=== PATIENT | female | born 1965 | race Caucasian/White ===

== ENCOUNTER 2018-09-22 17:08 | Emergency (ER) | payer SELFPAY ==
--- OUTSIDE RECORDS SUMMARY | 2018-09-22 17:12 | XMS REPORT | Clinical Summary ---
:1965 Author Organization [facility] Address [address] [place] [address] Care Team Providers Name Role Phone Unavailable Primary Care Provider Unavailable Allergies Active Allergy Reactions Severity Noted Date Comments Promethazine 09/27/2016 Air ways will swell up Medications Medication Sig Dispensed Refills Start End Date Status Date polyethylene glycol Take 17 g by 1 Active (GLYCOLAX) 17 mouth daily as 6 gram/dose powder needed for constipation. ipratropium-albuter USE 1 AMP VIA NEB 1 Active ol (DUO-NEB) TID 7 0.5-2.5 mg/mL nebulizer CHOLECALCIFEROL, TK 1 C PO D 0 Active VITAMIN D3, 2,000 7 unit capsule capsule SANTYL ointment APPLY TOPICALLY 1 Active AA ONCE D 7 guaiFENesin TK 20 ML PER PEG 1 Active (ROBITUSSIN) 100 TID 7 mg/5 mL syrup levETIRAcetam GIVE 7.5 ML PER 1 Active (KEPPRA) 100 mg/mL PEG Q 12 H 7 solution SENNA WITH DOCUSATE TK 1 T PER PEG D 1 Active SODIUM 8.6-50 mg 7 tablet eszopiclone TK 1 T PER PEG 1 Active (LUNESTA) 1 MG QHS PRN INSOMNIA 7 tablet FLUoxetine (PROzac) TK 1 C PO PER PEG 90 capsule 1 Active 20 MG capsule D 7 metoprolol tartrate TAKE 1/2 TABLET 90 tablet 0 Active (LOPRESSOR) 25 mg PER PEG EVERY 12 8 tablet HOURS atorvastatin TAKE ONE TABLET 90 tablet 0 Active (LIPITOR) 40 MG BY MOUTH ONCE 8 tablet DAILY AmANTadine GIVE 10 ML VIA 473 mL 0 Active (SYMMETREL) 50 mg/5 PEG TWICE A DAY 8 mL solution omeprazole TAKE 1 CAPSULE 90 capsule 0 04/25/20 Active (PriLOSEC) 20 MG (20 MG TOTAL) BY 8 19 capsuleIndications: MOUTH DAILY. G tube feedings (HCC), Cough SYNTHROID 88 mcg TAKE ONE TABLET 30 tablet 0 Active tablet BY MOUTH EVERY 8 MORNING omeprazole Take 1 capsule 90 capsule 2 04/18/20 Discontinued (PriLOSEC) 20 MG (20 mg total) by 7 18 capsuleIndications: mouth daily. G tube feedings (HCC), Cough metoprolol tartrate TK 1/2 T PER PEG 90 tablet 1 01/15/20 Discontinued (LOPRESSOR) 25 mg Q 12 H 7 18 tablet levothyroxine Take 1 tablet (88 90 tablet 1 01/29/20 Discontinued (SYNTHROID, mcg total) by 7 18 LEVOXYL) 88 mcg mouth every tablet morning. AmANTadine GIVE 10 ML PER 473 mL 1 10/21/19 Discontinued (SYMMETREL) 50 mg/5 PEG BID 7 18 mL solution acetylcysteine Take 4 mL by 720 mL 0 07/19/20 (MUCOMYST) 200 nebulization 7 18 mg/mL (20 %) daily as needed nebulizer solution (congestion). 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 shunt 07/18/2017 Sepsis 03/21/2017 Meningitis 03/20/2017 Bronchorrhea 03/20/2017 Atelectasis 03/20/2017 Encephalopathy 03/15/2017 Pulmonary embolism 03/15/2017 NSTEMI (non-ST elevated myocardial infarction) 03/15/2017 Electrolyte abnormality 03/15/2017 Respiratory failure 03/15/2017 Anorexia 01/18/2017 Dizziness 01/18/2017 Chronic cough 01/18/2017 Brain aneurysm 01/04/2016 Sciatica of right side 01/01/2016 Overview: With normal neurological exam Acquired hypothyroidism 12/31/2015 HLD (hyperlipidemia) 12/31/2015 Essential hypertension 12/31/2015 Tobacco use 12/31/2015 GERD (gastroesophageal reflux disease) 12/31/2015 Encounters Date Type Specialty Care Team Description 06/20/2018 Telephone Internal Medicine Payal Mahan MD 06/18/2018 Refill Internal Medicine Payal Mahan MD 06/13/2018 Refill Internal Payal Garcia MD 06/05/2018 Refill Internal Payal aGrcia MD 05/15/2018 Refill Internal Medicine Payal Mahan MD 04/18/2018 Refill Internal Medicine Payal Mahan MD G tube feedings; Cough 04/13/2018 Refill Internal Medicine Payal Mahan MD G tube feedings; Cough 02/05/2018 Refill Internal Medicine Payal Mahan MD 01/28/2018 Refill Internal Medicine Payal Mahan MD 01/14/2018 Refill Internal Payal Garcia MD 11/22/2017 Hospital Encounter Radiology 11/22/2017 Hospital Encounter Radiology 11/22/2017 Hospital Encounter Radiology 11/22/2017 Hospital Encounter Radiology 11/22/2017 Hospital Encounter Radiology 10/21/2017 Refill Internal Medicine Payal Mahan MD after 09/21/2017 Immunizations Name Dates Previously Given Next Due DTaP 10/07/2010 Family History Medical History Relation Name Comments Colon cancer Father Cancer Mother lung cancer Relation Name Status Comments Father Mother Social History Tobacco Use Types Packs/Day Years Used Date Former Smoker Cigarettes 0.25 Quit: 01/17/2016 Alcohol Use Drinks/Week oz/Week Comments No Sex Assigned at Date Recorded Not on file Job Start Date Occupation Industry Not on file Not on file Not on file Travel History Travel Start Travel End No recent travel history available. Last Filed Vital Signs Not on file Plan of Treatment Health Maintenance Due Date Last Done Comments CERVICAL CANCER SCREENING 02/09/1985 BREAST CANCER SCREENING 02/09/2014 SHINGLES VACCINES (1 of 2) 02/09/2014 INFLUENZA VACCINE 04/05/2018 COLON CANCER SCREENING 04/13/2027 04/13/2017 Implants Implanted Type Area Electronic Masking System Operator Device Shelf Model / Identifier Expiration Serial / Date Lot Valve Strata Reg Hydcepls Adjstbl Ltxf - [id number] Cardiovascular Right: MED[employer] PS 11/03/2019 [id number] / Implanted: Qty: 1 on 04/17/2017 by Marilia Sullivan MD Implants N/A MEDICAL / [id number] Plate Crnl Str 2h Ti 1.6mm - [id number] Cranial Plate or N/A: IActive [id number] / Implanted: 03/30/2017 (Quantity not on file) [place] Cover N/A MAXIOFACIAL / IMPLANT Plate Bone Lpr 6hl Strut Ti Neuro - [id number] Cranial Plate or N/A: IActive [id number] / Implanted: 03/30/2017 (Quantity not on file) [place] Cover N/A MAXIOFACIAL / IMPLANT Screw Bone Slf-Drl Mtrxnuro Ti 4mm - [id number] Cranial Plate or N/A: IActive 04 503 104 01 / Implanted: 03/30/2017 (Quantity not on file) [place] Cover N/A MAXIOFACIAL / IMPLANT Screw Bone Sylvie Ti 4mm Matrixneuro - [id number] Cranial Plate or N/A: IActive 04 503 114 01 / Implanted: 03/31/2017 (Quantity not on file) [place] Cover N/A MAXIOFACIAL / IMPLANT Catheter Card Ps Med 90cm 1.3x2.5mm Std - [id number] Surgical Right: [employer]TR[employer] PS 12/03/2021 [id number] / Implanted: Qty: 1 on 04/17/2017 by Marilia Sullivan MD Implantable N/A MEDICAL / Shunts or Shunt [id number] Extenders Catheter Carlos 23cm 1.3x2.5mm Std Barium Imprgntd - [id number] Surgical Right: MEDTRON[employer] [place] [id number] / Implanted: Qty: 1 on 04/17/2017 by Marilia Sullivan MD Implantable N/A MEDICAL / Shunts or Shunt Extenders [facility]ter [facility] Tor[facility] Disc Sander Ii 5fr 100cm - [id number] Surgical N/A: [facility] [id number] / Implanted: 03/22/2017 (Quantity not on file) Implants; N/A INTERVENTION / Expanders; VASCULAR LISE Extenders; Surgical Wires Device Vasclr Clsr 5fr - [id number] Surgical N/A: ISAIAS AND 11/02/2018 [id number] / Implanted: 03/22/2017 (Quantity not on file) Implants; N/A ISAIAS DIV OF / Expanders; CORDIS [id number] Extenders; Surgical Wires Catheter Angiography Diag [facility] Disc Sander Ii 5fr 100cm - [id number] Surgical N/A: [facility] [id number] / Implanted: 03/29/2017 (Quantity not on file) Implants; N/A INTERVENTION / Expanders; VASCULAR LISE Extenders; Surgical Wires Device Vasclr Clsr 5fr - [id number] Surgical N/A: ISAIAS AND 11/02/2018 EX500 / Implanted: 03/29/2017 (Quantity not on file) Implants; N/A ISAIAS DIV OF / Expanders; CORDIS [id number] Extenders; Surgical Wires Kit Hemostatic Matrix W/Thrombin 8ml Surgiflo - [id number] Surgical N/A: [facility] 09/04/2018 [id number] / Implanted: 03/30/2017 (Quantity not on file) Implants; N/A / Expanders; [id number] Extenders; Surgical Wires Kit Hemostatic Matrix W/Thrombin 8ml Surgiflo - [id number] Surgical N/A: [facility] 09/04/2018 [id number] / Implanted: 03/30/2017 (Quantity not on file) Implants; N/A / Expanders; [id number] Extenders; Surgical Wires Catheter Drainge Carlos Ventriclear Ii - [id number] Surgical N/A: [employer] [id number] / Implanted: 03/30/2017 (Quantity not on file) Implants; N/A NEUROSURGERY / Expanders; Extenders; Surgical Wires Device Vasclr Clsr 5fr - [id number] Surgical N/A: ISAIAS AND 05/05/2018 EX500 / Implanted: 03/30/2017 (Quantity not on file) Implants; N/A ISAIAS DIV OF / Expanders; CORDIS [id number] Extenders; Surgical Wires Catheter Drainge Carlos Ventriclear Ii - [id number] Surgical N/A: [employer] [id number] / Implanted: 03/30/2017 (Quantity not on file) Implants; N/A NEUROSURGERY / Expanders; Extenders; Surgical Wires Device Vasclr Clsr 6fr - [id number] Surgical N/A: ISAIAS AND 05/05/2018 EX600 / Implanted: 04/11/2017 (Quantity not on file) Implants; N/A ISAIAS DIV OF / Expanders; CORDIS [id number] Extenders; Surgical Wires Kit Hemostatic Matrix W/Thrombin 8ml Surgiflo - [id number] Surgical N/A: [facility] 11/02/2018 2994 / Implanted: Qty: 1 on 04/17/2017 by Marilia Sullivan MD Implants; N/A / Expanders; [id number] Extenders; Surgical Wires Procedures Procedure Name Priority Date/Time Associated Diagnosis Comments TRANSFUSE FRESH FROZEN STAT 05/10/2018 5:37 PM CDT PLASMA TRANSFUSE FRESH FROZEN STAT 05/10/2018 5:37 PM CDT PLASMA TRANSFUSE RED BLOOD Routine 05/10/2018 5:37 PM CDT CELLS TRANSFUSE RED BLOOD Routine 05/10/2018 5:37 PM CDT CELLS TRANSFUSE RED BLOOD Routine 05/10/2018 5:37 PM CDT CELLS after 09/21/2017 Results Transfuse fresh frozen plasma (05/10/2018 5:37 PM CDT)Only the most recent of3 resultswithin the time period is included.Transfuse RBC (05/10/2018 5:37 PM CDT )Only the most recent of5 resultswithin the time period is included.after 2017 Insurance Payer Benefit Plan / Group Subscriber ID Type Phone Address BCBS BCBS CHOICE PPO/FEDERAL EMPL PPO xxxxxxxxxxxx PPO (Work) [id number] Advance Directives Patient has advance care planning documents on file. For more information, please contact:[place] [address]
--- OUTSIDE RECORDS SUMMARY | 2018-09-22 17:12 | XMS REPORT | Summary of Care ---
:1965 Author Name Nellie Robles M.A. Address Unavailable Unavailable , Care Team Providers Name Role Phone DAVID CLINE M.D. 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 Intracranial hemorrhage (432.9, I62.9) Status: Active Intracranial aneurysm (437.3, I67.1) Status: Active AC joint dislocation, unspecified laterality, sequela (905.6, S43.109S) Status: Active Medications Name Dates Details Levothyroxine Sodium 88 MCG Oral Tablet Refills: 0 Active Atorvastatin Calcium 40 MG Oral Tablet Refills: 0 Active FLUoxetine HCl - 20 MG Oral Tablet Refills: 0 Active Vitamin D TABS Refills: 0 Active GuaiFENesin 100 MG/5ML Oral Liquid Refills: 0 Active Ciprofloxacin 500 MG TABS Refills: 0 Active Metoprolol Tartrate 25 MG Oral Tablet Refills: 0 Active Benzonatate 100 MG Oral Capsule Refills: 0 Active Omeprazole CPDR Refills: 0 Active Multi Vitamin TABS Refills: 0 Active Melatonin 5 MG Oral Tablet Refills: 0 Active Lunesta 1 MG Oral Tablet Refills: 0 Active Amantadine HCl - 50 MG/5ML Oral Syrup Refills: 0 Active Keppra 100 MG/ML Oral Solution Refills: 0 Active Allergies and Adverse Reactions Name Dates Details Phenergan (Allergy) Status: Active Past Medical History Name Dates Details History of hypertension (V12.59, Z86.79) Status: Resolved History of meningitis (V12.42, Z86.61) Status: Resolved History of seizure (V12.49, Z87.898) Status: Resolved History of thyroid disorder (V12.29, Z86.39) Status: Resolved Procedures Procedure Dates Details [U] XRAY SHOULDER MIN 2 VWS RIGHT [id number] Date: 05-Dec-2017 [U] XRAY SHOULDER MIN 2 VWS RIGHT [id number] Date: 08-Dec-2017 History of craniectomy Completed History of gastrostomy tube insertion Completed History of tracheostomy Completed History of brain surgery Completed History of thoracotomy Completed Immunization Name Dates Details Immunizations not documented Family History Name Dates Details No pertinent family history Status: Active Name Dates Details No pertinent family history Status: Active Social History Name Dates Details Unknown if ever smoked Vital Signs Date Test Result Details No Known Vitals to report Results Date Description Value Details Results not documented Plan of Care Name Dates Details Planned Observations Planned Goals not documented Planned Encounters Appointment; DAVID CLINE M.D. On: 09-Dec-2017 13:15 Appointment; JOSUE SETH M.D. On: 24-Jan-2018 14:30 Interventions Provided Labs/Procedures/Imaging[U] XRAY SHOULDER MIN 2 VWS RIGHT [id number]; To Be Done: 09 Dec 2017 Instructions Name Dates Details Instructions not documented Encounters Appointment; DAVID CLINE M.D. On: 12-Aug-2017 15:45 Encounter Diagnosis: Problem not documented Appointment; DAVID CLINE M.D. On: 17-Aug-2017 13:00 Encounter Diagnosis: Problem not documented Appointment; JOSUE SETH M.D. On: 21-Sep-2017 13:00 Encounter Diagnosis: Problem not documented Appointment; DAVID CLINE M.D. On: 28-Sep-2017 13:00 Encounter Diagnosis: Problem not documented Appointment; JOSUE SETH M.D. On: 18-Oct-2017 11:00 Encounter Diagnosis: Problem not documented Appointment; SUZANNE CAMPBELL M.D. On: 04-Nov-2017 16:00 Encounter Diagnosis: Problem not documented Appointment; DAVID CLINE M.D. On: 09-Dec-2017 13:15 Encounter Diagnosis: Problem not documented
--- NOTE | 2018-09-22 17:44 | RAD REPORT ---
EXAM DESCRIPTION: CT - Head Brain Wo Cont - 09/22/2018 5:31 pm CLINICAL HISTORY: Weakness, malaise, redness and swelling to the forehead, prior history of cerebral infarction, subarachnoid hemorrhage, brain and spinal tumors, known HISTORIOGRAPHER shunt COMPARISON: CT study September 14, 2017 TECHNIQUE: Axial 5 mm thick images of the head were obtained without IV contrast. All CT scans are performed using dose optimization technique as appropriate and may include automated exposure control or mA/KV adjustment according to patient size. FINDINGS: No acute intracranial hemorrhage. There is no mass effect, edema or shift of midline struc tures. No acute cortical based infarction identified. Small amount of fluid is present along the left cerebral hemisphere similar to slightly hyperdense relative to CSF. Similar small collection is seen along the right frontal bone. These are believed to be old subdural hematomas or subdural hygroma. V entricles are decompressed or normal size. Right parietal shunt tube is in place with the tip in the frontal horn left lateral ventricle. Ventricles are substantially reduced in size compared to the exa m 1 year earlier. Right frontal lobe encephalomalacia changes are present. There is extensive postsurgical change to th e frontal bone. Intracranial calcifications are present similar to comparison. Additional postsurgica l changes are present in the skull. An acute bone process is not identifiable. Mastoid air cells are clear. Partially visualized paranasal sinuses are clear except for mucosal thic kening in the left frontal sinus. . No acute globe or orbital content abnormality. Aneurysm clip is s een in the left middle cranial fossa. IMPRESSION: No acute hemorrhage, mass or other acute intracranial finding. Patient has multiple chronic intracranial findings. Ventricles are decompressed and substantially smaller than seen 1 year earlier. No ventricular obstru ction is present.
--- NOTE | 2018-09-22 18:17 | RAD REPORT ---
EXAM DESCRIPTION: RAD - Shuntogram - 09/22/2018 6:00 pm CLINICAL HISTORY: Weakness, ladies, history of multiple intracranial procedures with BUS STEWARD shunt COMPARISON: CT head imaging same date, shunt series September 14, 2017 TECHNIQUE: AP and lateral views of the skull were obtained. AP projection the cervical spine, chest, abdomen and pelvis obtained. Lateral views of the upper abdomen and chest obtained. A total of 8 jacquie ges were obtained. FINDINGS: Extensive postsurgical changes are noted to the skull. Shunt tube is in place on the right no abnormal bend or kink of the tubing identifiable. Tubing is curled in the pelvis with the tip in the left lower quadrant Patient has extensive degenerative and postsurgical changes to the spine. Prominent bowel gas pattern is present. No obstruction, free air or pneumatosis. A nonspecific enteritis is possible. IMPRESSION: No BUS STEWARD shunt abnormality identifiable. Prominent small bowel pattern. This is nonobstructive but could represent ileus or enteritis.
[2018-09-22] MEDS ORDERED: DIPHENHYDRAMINE 50 MG/ML VIAL ONE (18:30)
[2018-09-22] MEDS ORDERED: DEXAMETHASONE 10 MG/ML VIAL ONE ×2 (18:30→18:33)
--- NOTE | 2018-09-22 18:49 | EDPHYS ---
Physician Documentation [facility] Name: Summer Coates Age: 53 yrs Sex: Female : 1965 Arrival Date: 09/22/2018 Time: 17:10 Bed 6 Private MD: ED Physician Bruno Valdez HPI: 09/22 17:36 This 53 yrs old Female presents to ER via EMS with complaints of facial rn swelling. 17:36 The patient complains of pain to the forehead. The patient describes the headache as rn aching. Onset: The symptoms/episode began/occurred today. Associated signs and symptoms: The patient has no apparent associated signs or symptoms, Pertinent negatives: altered mental status, fever, neck stiffness, vision changes, vision loss, vomiting, vertigo. Severity of symptoms: At its worst the pain was mild, in the emergency department the pain is unchanged. The patient has not experienced similar symptoms in the past. Reports hx of brain mass s/p surgery with shunt, reports has been feeling ok, until earlier today noticed forehead swelling, no fever, no trauma, feels mild headache, no vomiting/visual disturbance. . 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 - Ebola Screening: : Patient denies travel to an Ebola-affected area in the 21 days before illness onset. - Family history:: not pertinent. - Hospitalizations: : No recent hospitalization is reported. ROS: 17:36 Constitutional: Negative for fever, chills, and weight loss, Eyes: Negative for injury, rn pain, redness, and discharge, Neck: Negative for injury, pain, and swelling, Cardiovascular: Negative for chest pain, palpitations, and edema, Respiratory: Negative for shortness of breath, cough, wheezing, and pleuritic chest pain, Abdomen/GI: Negative for abdominal pain, nausea, vomiting, diarrhea, and constipation, MS/Extremity: Negative for injury and deformity, Skin: Negative for injury, rash, and discoloration, Neuro: + mild headache, no focal weakness or new neurological complaint Exam: 17:36 Constitutional: This is a well developed, well nourished patient who is awake, alert, rn and in no acute distress. Head/Face: + forehead swelling, firm, non-fluctuant, central erythematous papule, no warmth, no depression Eyes: Pupils equal round and reactive to light, extra-ocular motions intact. Lids and lashes normal. Conjunctiva and sclera are non-icteric and not injected. Cornea within normal limits. Periorbital areas with no swelling, redness, or edema. Neck: Trachea midline, no thyromegaly or masses palpated, and no cervical lymphadenopathy. Supple, full range of motion without nuchal rigidity, or vertebral point tenderness. No Meningismus. Skin: Warm, dry MS/ Extremity: Pulses equal, no cyanosis. Neurovascular intact. Neuro: Awake and alert, GCS 15, oriented to person, place, time, and situation. Cranial nerves II-XII grossly intact. Motor strength 4/5 in all extremities. Sensory grossly intact. Vital Signs: 17:23 BP 103 / 71; Pulse 91; Resp 18; Temp 98.5; Pulse Ox 95% on R/A; Weight 58.97 kg; Height aj1 5 ft. 3 in. (160.02 cm) (R); 18:15 BP 109 / 75; Pulse 81; Resp 18; Pulse Ox 98% on R/A; aj1 17:23 Body Mass Index 23.03 (58.97 kg, 160.02 cm) aj1 [place] Coma Score: 18:42 Eye Response: spontaneous(4). Verbal Response: oriented(5). Motor Response: obeys rn commands(6). Total: 15. MDM: 17:10 Patient medically screened. rn 18:42 Differential diagnosis: migraine, vasomotor headache, cellulitis, insect bite, allergic rn reaction, shunt problem. Data reviewed: vital signs, nurses notes, radiologic studies, CT scan, plain films, and as a result, I will discharge patient. Counseling: I had a detailed discussion with the patient and/or guardian regarding: the historical points, exam findings, and any diagnostic results supporting the discharge/admit diagnosis, lab results, radiology results, the need for outpatient follow up, to return to the emergency department if symptoms worsen or persist or if there are any questions or concerns that arise at home. Special discussion: I discussed with the patient/guardian in detail that at this point there is no indication for admission to the hospital. It is understood, however, that if the symptoms persist or worsen the patient needs to return immediately for re-evaluation. ED course: Pt with no acute findings on ct head, ventricles more decompressed compared to last, no bleeding, no soft tissue swelling seen, shunt appears normal as well, normal neuro exam, no trauma, will dc home with abx given spont forehead swelling with pain. Urged to contact her neurosurgeon and f/u for further instructions and return precautions given.. 09/22 17:11 Order name: CT Head Brain wo Cont; Complete Time: 18:00 rn 09/22 17:11 Order name: Shuntogram XRAY; Complete Time: 18:29 rn Administered Medications: 18:29 Drug: Benadryl 25 mg Route: IVP; Site: left antecubital; aj1 19:40 Follow up: Response: No adverse reaction rr5 18:30 Drug: Decadron - Dexamethasone 10 mg Route: IVP; Site: left antecubital; aj1 19:30 Follow up: Response: No adverse reaction rr5 Disposition: 09/22/18 18:48 Discharged to Home. Impression: Localized swelling, mass and lump, head. - Condition is Stable. - Discharge Instructions: Ventriculoperitoneal Shunt Home Guide. - Prescriptions for Bactrim DS 800- 160 mg Oral Tablet - take 1 tablet by ORAL route every 12 hours for 10 days; 20 tablet. - Medication Reconciliation Form, Thank You Letter, Antibiotic Education, Prescription Opioid Use form. - Follow up: Private Physician; When: As needed; Reason: Recheck today's complaints, Re-evaluation by your physician. - Problem is new. - Symptoms have improved. Signatures: Dispatcher [employer] EDMS Niurka Terry RN RN aj1 Bruno Valdez MD MD rn Roque, Raymond, RN RN rr5 Corrections: (The following items were deleted from the chart) 19:40 18:48 09/22/2018 18:48 Discharged to Home. Impression: Localized swelling, mass and rr5 lump, head. Condition is Stable. Forms are Medication Reconciliation Form, Thank You Letter, Antibiotic Education, Prescription Opioid Use. Follow up: Private Physician; When: As needed; Reason: Recheck today's complaints, Re-evaluation by your physician. Problem is new. Symptoms have improved. rn
--- NOTE | 2018-09-22 18:49 | ER ---
Nurse's Notes [facility] Name: Summer Coates Age: 53 yrs Sex: Female : 1965 Arrival Date: 09/22/2018 Time: 17:10 Bed 6 Private MD: Diagnosis: Localized swelling, mass and lump, head Presentation: 09/22 17:10 Presenting complaint: Patient states: Generalized weakness and malaise for the past 2 aj1 months. Today at noon she noticed redness and swelling to the forehead. Patient reports history of brain and spinal tumors as well as BRUSHER shunt. Transition of care: patient was not received from another setting of care. Onset of symptoms was September 22, 2018 at 12:00. Risk Assessment: Do you want to hurt yourself or someone else? Patient reports no desire to harm self or others. Initial Sepsis Screen: Does the patient meet any 2 criteria? No. Patient's initial sepsis screen is negative. Does the patient have a suspected source of infection? No. Patient's initial sepsis screen is negative. Care prior to arrival: None. 17:10 Method Of Arrival: EMS: [facility] aj 17:10 Acuity: NACHO 3 aj1 Triage Assessment: 17:25 General: Appears Behavior is calm, cooperative, appropriate for age. aj1 17:25 Pain:. 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 - Ebola Screening: : Patient denies travel to an Ebola-affected area in the 21 days before illness onset. - Family history:: not pertinent. - Hospitalizations: : No recent hospitalization is reported. Screenin:10 Abuse screen: Denies threats or abuse. Denies injuries from another. Nutritional aj1 screening: No deficits noted. Tuberculosis screening: No symptoms or risk factors identified. 19:28 Fall Risk IV access (20 points). Gait- Weak (10 pts.). Total Barbour Fall Scale indicates rr5 Low Risk Score (25-44 pts). Fall prevention measures have been instituted. Side Rails Up X 2 Frequent Obs/Assesments occuring As available Patient and Family Educated on Fall Prevention Program and strategies. Assessment: 17:10 General: Appears in no apparent distress. uncomfortable, Behavior is calm, cooperative, aj1 appropriate for age. Neuro: Level of Consciousness is awake, alert, obeys commands, Oriented to person, place, time, situation, Speech is normal, Reports generalized weakness, patient denies any unilateral weakness outside of her normal baseline. Cardiovascular: Patient's skin is warm and dry. Respiratory: Airway is patent Respiratory effort is even, unlabored, Respiratory pattern is regular, symmetrical. GI: No signs and/or symptoms were reported involving the gastrointestinal system. : No signs and/or symptoms were reported regarding the genitourinary system. EENT: No signs and/or symptoms were reported regarding the EENT system. Derm: redness and swelling noted to forehead, patient states that she first noticed the swelling today at noon. Musculoskeletal: No signs and/or symptoms reported regarding the musculoskeletal system. Circulation, motion, and sensation intact. 18:15 Reassessment: Patient appears in no apparent distress at this time. No changes from aj1 previously documented assessment. Patient and/or family updated on plan of care and expected duration. Pain level reassessed. Patient is alert, oriented x 3, equal unlabored respirations, skin warm/dry/pink. 19:30 Reassessment: Patient appears in no apparent distress at this time. Patient and/or rr5 family updated on plan of care and expected duration. Pain level reassessed. Patient is alert, oriented x 3, equal unlabored respirations, skin warm/dry/pink. discharge instruction given and explained without complaints made. Patient states symptoms have improved. Vital Signs: 17:23 BP 103 / 71; Pulse 91; Resp 18; Temp 98.5; Pulse Ox 95% on R/A; Weight 58.97 kg; Height aj1 5 ft. 3 in. (160.02 cm) (R); 18:15 BP 109 / 75; Pulse 81; Resp 18; Pulse Ox 98% on R/A; aj1 17:23 Body Mass Index 23.03 (58.97 kg, 160.02 cm) aj1 Tyler Coma Score: 18:42 Eye Response: spontaneous(4). Verbal Response: oriented(5). Motor Response: obeys rn commands(6). Total: 15. ED Course: 17:10 Patient arrived in ED. rn 17:10 Bruno Valdez MD is Attending Physician. rn 17:10 Niurka Terry RN is Primary Nurse. aj1 17:10 Patient has correct armband on for positive identification. aj1 17:10 No provider procedures requiring assistance completed. aj1 17:12 Triage completed. aj1 17:23 Arm band placed on. aj1 17:29 CT completed. Patient moved to CT. Patient moved back from CT. nd 17:33 CT Head Brain wo Cont In Process Unspecified. EDMS 17:59 X-ray completed. Patient tolerated procedure well. ag1 18:01 Shuntogram XRAY In Process Unspecified. EDMS 19:30 IV discontinued, G24 at right AC removed. rr5 Administered Medications: 18:29 Drug: Benadryl 25 mg Route: IVP; Site: left antecubital; aj 19:40 Follow up: Response: No adverse reaction rr5 18:30 Drug: Decadron - Dexamethasone 10 mg Route: IVP; Site: left antecubital; aj 19:30 Follow up: Response: No adverse reaction rr5 Outcome: 18:48 Discharge ordered by . rn 19:30 Discharged to home via wheelchair. rr5 19:30 Condition: stable 19:30 Discharge instructions given to patient, Instructed on discharge instructions, follow up and referral plans. medication usage, Demonstrated understanding of instructions, follow-up care, medications, Prescriptions given X 1. 19:40 Patient left the ED. rr5 Signatures: Dispatcher [employer] [facility] Niurka Terry, NAIDA RN [facility] Bruno Valdez MD MD rn [place], [place] [facility] Raymundo Haynes Raymond, RN RN rr5 Corrections: (The following items were deleted from the chart) 17:47 17:46 General: Appears [place] [id number]
[2018-09-22 19:45] VITALS: TEMP 98.5
[2018-09-22 19:46] VITALS: BP 109/75; O2SAT 98
== END 2018-09-22 19:40 | disposition home or self-care (01) ==
LOC: ER 17:08
DX: R22.0 Localized swelling, mass and lump, head (principal); I10 Essential (primary) hypertension; Z88.8 Allergy status to other drugs, medicaments and biological substances; Z87.820 Personal history of traumatic brain injury; Z98.2 Presence of cerebrospinal fluid drainage device
CPT/HCPCS: 49427; 70450; 75809; J1100

== ENCOUNTER 2018-12-27 15:53 | Emergency (ER) | payer OTHER, SELFPAY ==
--- OUTSIDE RECORDS SUMMARY | 2018-12-27 16:55 | XMS REPORT | Clinical Summary ---
:1965 Author Organization [facility] Address [address] [place] [address] Care Team Providers Name Role Phone Unavailable [...] LEVOXYL) 88 mcg mouth every tablet morning. acetylcysteine Take 4 mL by 720 mL [...] tablet Active Problems Problem Noted Date S/P COWLMAN shunt 07/18/2017 Sepsis 03/21/2017 Meningitis 03/20/2017 Bronchorrhea [...] Encounters Date Type Specialty Care Team Description 12/12/2018 Refill Internal Medicine Payal Mahan MD G tube feedings (HCC) ; Cough 10/15/2018 Refill Internal Medicine Payal Mahan MD G tube feedings ([facility]) ; Cough 06/20/2018 Telephone Internal Medicine Payal Mahan MD 06/18/2018 Refill Internal Payal Garcia MD 06/13/2018 Refill Internal Payal Garcia MD 06/05/2018 Refill Internal Medicine Payal Mahan MD 05/15/2018 Refill Internal Medicine Payal Mahan MD 04/18/2018 Refill Internal Medicine Payal Mahan MD G tube feedings; Cough 04/13/2018 Refill Internal Medicine Payla Mahan MD G tube feedings; Cough 02/05/2018 Refill Internal Payal Garcia MD 01/28/2018 Refill Internal Payal Garcia MD 01/14/2018 Refill Internal Medicine Payal Mahan MD after 12/26/2017 Immunizations Name Dates Previously Given Next Due [...] 02/09/1985 BREAST CANCER SCREENING 02/09/2014 SHINGLES VACCINES (#1) 02/09/2014 INFLUENZA VACCINE 04/05/2019 COLON CANCER SCREENING 04/13/2027 04/13/2017 Implants Implanted Type Area Electronic Communications Technician Device Shelf Model / Identifier Expiration Serial / Date Lot Valve Strata Reg Hydcepls Adjstbl Ltxf - [id number] Cardiovascular Right: MEDTRONIC PS 11/03/2019 [id number] / Implanted: Qty: 1 on 04/17/2017 by Marilia Sullivan MD Implants N/A MEDICAL / [id number] Plate Crnl Str 2h Ti 1.6mm - [id number] Cranial Plate or N/A: SYNTHES [id number] / Implanted: 03/30/2017 (Quantity not on file) [place] Cover N/A MAXIOFACIAL / IMPLANT Plate Bone Lpr 6hl Strut Ti Neuro - [id number] Cranial Plate or N/A: CardioFocus [id number] / Implanted: 03/30/2017 (Quantity not on file) [place] Cover N/A MAXIOFACIAL / IMPLANT Screw Bone Slf-Drl Mtrxnuro Ti 4mm - [id number] Cranial Plate or N/A: CardioFocus 04 503 104 01 / Implanted: 03/30/2017 (Quantity not on file) [place] Cover N/A MAXIOFACIAL / IMPLANT Screw Bone Sylvie Ti 4mm Matrixneuro - [id number] Cranial Plate or N/A: CardioFocus 04 503 114 01 / Implanted: 03/31/2017 (Quantity not on file) [place] Cover N/A MAXIOFACIAL / IMPLANT Catheter Card Ps Med 90cm 1.3x2.5mm Std - [id number] Surgical Right: MEDTRONIC PS 12/03/2021 [id number] / Implanted: Qty: 1 on 04/17/2017 by Marilia Sullivan MD Implantable N/A MEDICAL / Shunts or Shunt [id number] Extenders Catheter Carlos 23cm 1.3x2.5mm Std Barium Imprgntd - [id number] Surgical [place] [id number] / Implanted: Qty: 1 on 04/17/2017 by Marilia Sullivan MD Implantable N/A MEDICAL / Shunts or Shunt Extenders Catheter Angiography Diag Barnh Torque Outside Sales Consultant Ii 5fr 100cm - [id number] Surgical N/A: BSC PERIPHERAL [id number] / Implanted: 03/22/2017 (Quantity not on file) Implants; N/A INTERVENTION / Expanders; VASCULAR LISE Extenders; Surgical Wires Device Vasclr Clsr 5fr - [id number] Surgical N/A: ISAIAS AND 11/02/2018 [id number] / Implanted: 03/22/2017 (Quantity not on file) Implants; N/A ISAIAS DIV OF / Expanders; CORDIS [id number] Extenders; Surgical Wires Catheter Angiography Diag [facility] Torque Outside Sales Consultant Ii 5fr 100cm - [id number] Surgical N/A: [facility] PERIPHERAL [id number] / Implanted: 03/29/2017 (Quantity not on file) Implants; N/A INTERVENTION / Expanders; VASCULAR LISE Extenders; Surgical Wires Device Vasclr Clsr 5fr - [id number] Surgical N/A: ISAIAS AND 11/02/2018 EX500 / Implanted: 03/29/2017 (Quantity not on file) Implants; N/A ISAIAS DIV OF / Expanders; CORDIS [id number] Extenders; Surgical Wires Kit Hemostatic Matrix W/Thrombin 8ml Surgiflo - [id number] Surgical N/A: ETHICON [facility] 09/04/2018 [id number] / Implanted: 03/30/2017 (Quantity not on file) Implants; N/A / Expanders; [id number] Extenders; Surgical Wires Kit Hemostatic Matrix W/Thrombin 8ml Surgiflo - [id number] Surgical N/A: ETHICON [facility] 09/04/2018 [id number] / Implanted: 03/30/2017 (Quantity not on file) Implants; N/A / Expanders; [id number] Extenders; Surgical Wires Catheter Drainge Carlos Ventriclear Ii - [id number] Surgical N/A: MEDTRONIC [id number] / Implanted: 03/30/2017 (Quantity not on file) Implants; N/A NEUROSURGERY / Expanders; Extenders; Surgical Wires Device Vasclr Clsr 5fr - [id number] Surgical N/A: ISAIAS AND 05/05/2018 EX500 / Implanted: 03/30/2017 (Quantity not on file) Implants; N/A ISAIAS DIV OF / Expanders; CORDIS [id number] Extenders; Surgical Wires Catheter Drainge Carlos Ventriclear Ii - [id number] Surgical N/A: MEDTRONIC [id number] / Implanted: 03/30/2017 (Quantity not on file) Implants; N/A NEUROSURGERY / Expanders; Extenders; Surgical Wires Device Vasclr Clsr 6fr - [id number] Surgical N/A: ISAIAS AND 05/05/2018 EX600 / Implanted: 04/11/2017 (Quantity not on file) Implants; N/A ISAIAS DIV OF / Expanders; CORDIS [id number] Extenders; Surgical Wires Kit Hemostatic Matrix W/Thrombin 8ml Surgiflo - [id number] Surgical N/A: ETHICON [facility] 11/02/2018 2994 / Implanted: Qty: 1 on 04/17/2017 by Marilia Sullivan MD Implants; N/A / Expanders; [id number] Extenders; Surgical Wires Procedures Procedure Name Priority Date/Time Associated Diagnosis Comments TRANSFUSE FRESH FROZEN STAT 05/10/2018 5:37 PM CDT PLASMA TRANSFUSE FRESH FROZEN STAT 05/10/2018 5:37 PM CDT PLASMA TRANSFUSE RED BLOOD Routine 05/10/2018 5:37 PM CDT CELLS TRANSFUSE RED BLOOD Routine 05/10/2018 5:37 PM CDT CELLS TRANSFUSE RED BLOOD Routine 05/10/2018 5:37 PM CDT CELLS after 12/26/2017 Results Transfuse fresh frozen plasma (05/10/2018 5:37 PM CDT)Only the most recent of3 resultswithin the time period is included.Transfuse RBC (05/10/2018 5:37 PM CDT )Only the most recent of5 resultswithin the time period is included.after 2017 Insurance Payer Benefit Plan / Group Subscriber ID Type Phone Address BCBS BCBS CHOICE PPO/FEDERAL EMPL PPO xxxxxxxxxxxx PPO (Work) [id number] Advance Directives Patient has advance care planning documents on file. For more information, please contact:Magno Albright[address] [place] [address]
[2018-12-27 17:14] LABS: Absolute Lymphocytes (CBC) 3.6 K/uL (0.7-4.9); Absolute Monocytes 0.5 K/uL (0.1-1.3); Absolute Neutrophil 4.3 K/uL (1.8-8.0); Basophils % 1.5 % (0-1.3); Eosinophils % 1.4 % (0-4.4); Hematocrit 33.3 % (36.0-45.0); Lymphocytes % 42.3 % (15.3-44.8); MPV 9.3 fL (7.6-11.3); Monocytes % 5.2 % (3.3-12.3); RBC Red Blood Cell Count 3.71 M/uL (3.86-4.86)
[2018-12-27 17:26] LABS: ALT/SGPT 21 U/L (12-78); AST/SGOT 12 U/L (15-37); Alkaline Phosphatase 117 U/L (45-117); BUN Blood Urea Nitrogen 17 mg/dL (7-18); Bicarbonate 28 mmol/L (21-32); Bilirubin Direct 0.1 mg/dL (0-0.2); Bilirubin Total 0.4 mg/dL (0.2-1.0); Glucose Level 94 mg/dL (74-106); Magnesium 1.7 mg/dL (1.8-2.4); Potassium 3.8 mmol/L (3.5-5.1); Protein, Total 7.4 g/dL (6.4-8.2); Sodium Level 144 mmol/L (136-145)
--- NOTE | 2018-12-27 17:26 | RAD REPORT ---
EXAM DESCRIPTION: RAD - Chest Single View - 12/27/2018 5:18 pm CLINICAL HISTORY: Cough and congestion, dyspnea, wheezing COMPARISON: October 03, 2017 TECHNIQUE: AP portable chest image was obtained 1713 hours . FINDINGS: Fibrotic lung pattern is present. No focal consolidations seen. No failure or volume overl oad. Lung markings are accentuated compared to the prior study due to shallow inspiration. Heart and vasculature are normal. No pneumothorax seen. Right costophrenic angle blunting is present. The patie nt has very extensive thoracic surgical change. 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 No acute bony abnormality seen. No acute aortic findings suspected. IMPRESSION: No acute cardiopulmonary process. Chronic interstitial lung disease is present accentuated by shallow inspiration.
[2018-12-27] MEDS ORDERED: MAGNESIUM SULFATE 1 gm IVPB 1 GM/100 ML BAG IV ONE (17:45)
--- NOTE | 2018-12-27 18:40 | EDPHYS ---
Physician Documentation [facility] Name: Summer Coates Age: 53 yrs Sex: Female : 1965 Arrival Date: 12/27/2018 Time: 15:56 Bed 23 Private MD: ED Physician Raul Chacon HPI: 12/27 16:55 This 53 yrs old Female presents to ER via Wheelchair with complaints of jr8 Cough, Wheezing. 16:55 Onset: The symptoms/episode began/occurred gradually, 4 day(s) ago. Severity of jr8 symptoms: At their worst the symptoms were mild, in the emergency department the symptoms are unchanged. Modifying factors: The symptoms are alleviated by nothing, the symptoms are aggravated by nothing. Associated signs and symptoms: Pertinent positives: fatigue. The patient has not experienced similar symptoms in the past. The patient has not recently seen a physician. Daughter of patient stated that patient has been sleeping more and cough has increased. Noticed wheezing over the past couple of days. Prone to pneumonia. Wanted to make sure nothing is developing . 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 - Post-menopause ca1 Historical: - Allergies: 16:01 Phenergan; hb - Home Meds: 17:17 atorvastatin 40 mg Oral tab 1 tab nightly [Active]; benzonatate 100 mg Oral cap 1 cap ca1 every 8 hours [Active]; eszopiclone 2 mg Oral tab 1 tab once daily [Active]; fluoxetine 40 mg oral cap 1 cap once daily [Active]; Keppra 750 mg Oral tab 1 tab 2 times per day [Active]; levothyroxine 88 mcg tab 1 tab once daily [Active]; Lunesta Oral [Active]; metoprolol tartrate 25 mg Oral tab .5 tab 2 times per day [Active]; Multiple Vitamins Oral tab daily [Active]; omeprazole 40 mg Oral cpDR 1 cap nightly [Active]; Symbicort 160-4.5 mcg/actuation inhalation HFAA 2 puffs 2 times per day [Active]; Vitamin D Oral 2000 unit daily [Active]; melatonin 5 mg Oral tab .5 tab nightly [Active]; - PMHx: 16:01 brain and spinal tumors; DYSPHAGIA; Cerebral infarction; hemiplegia left; hb Hyperlipidemia; GERD; Hypothyroidism; traumatic subarachnoid hemorrhage; Hypertension; Depression; 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 - Social history:: Smoking status: Patient/guardian denies using tobacco. - Ebola Screening: : No symptoms or risks identified at this time. ROS: 16:55 Eyes: Negative for injury, pain, redness, and discharge, ENT: Negative for injury, jr8 pain, and discharge, Neck: Negative for injury, pain, and swelling, Cardiovascular: Negative for chest pain, palpitations, and edema, Abdomen/GI: Negative for abdominal pain, nausea, vomiting, diarrhea, and constipation, Back: Negative for injury and pain, MS/Extremity: Negative for injury and deformity, Skin: Negative for injury, rash, and discoloration, Neuro: Negative for headache, weakness, numbness, tingling, and seizure. 16:55 Constitutional: Positive for fatigue. 16:55 Respiratory: Positive for cough, wheezing, Negative for shortness of breath. Exam: 16:42 Eyes: Pupils equal round and reactive to light, extra-ocular motions intact. Lids and jr8 lashes normal. Conjunctiva and sclera are non-icteric and not injected. Cornea within normal limits. Periorbital areas with no swelling, redness, or edema. ENT: Nares patent. No nasal discharge, no septal abnormalities noted. Tympanic membranes are normal and external auditory canals are clear. Oropharynx with no redness, swelling, or masses, exudates, or evidence of obstruction, uvula midline. Mucous membranes moist. Neck: Trachea midline, no thyromegaly or masses palpated, and no cervical lymphadenopathy. Supple, full range of motion without nuchal rigidity, or vertebral point tenderness. No Meningismus. Cardiovascular: Regular rate and rhythm with a normal S1 and S2. No gallops, murmurs, or rubs. Normal PMI, no JVD. No pulse deficits. Respiratory: Lungs have equal breath sounds bilaterally, clear to auscultation and percussion. No rales, rhonchi or wheezes noted. No increased work of breathing, no retractions or nasal flaring. Abdomen/GI: Soft, non-tender, with normal bowel sounds. No distension or tympany. No guarding or rebound. No evidence of tenderness throughout. Back: No spinal tenderness. No costovertebral tenderness. Full range of motion. Skin: Warm, dry with normal turgor. Normal color with no rashes, no lesions, and no evidence of cellulitis. MS/ Extremity: Pulses equal, no cyanosis. Neurovascular intact. Full, normal range of motion. Neuro: Awake and alert, nonverbal but follows commands. Baseline for patient. Cranial nerves II-XII grossly intact. Motor strength 3/5 in all extremities. Sensory grossly intact. 16:42 ECG was reviewed by the Attending Physician. Vital Signs: 15:59 BP 118 / 72; Pulse 82; Resp 16; Temp 98.2; Pulse Ox 96% ; Pain 0/10; hb 17:03 BP 109 / 61; Pulse 83; Resp 17 S; Pulse Ox 98% on R/A; ca1 17:53 BP 116 / 62; Pulse 81; Resp 19 S; Pulse Ox 96% on R/A; ca1 18:18 BP 109 / 86; Pulse 78; Resp 21 S; Pulse Ox 98% on R/A; ca1 18:50 BP 127 / 68; Pulse 78; Resp 19 S; Pulse Ox 98% on R/A; ca1 MDM: 16:03 Patient medically screened. [facility] 18:39 Data reviewed: vital signs, nurses notes, lab test result(s), EKG, radiologic studies, jr8 plain films. Data interpreted: Pulse oximetry: on room air is 98 %. Interpretation: normal. Counseling: I had a detailed discussion with the patient and/or guardian regarding: the historical points, exam findings, and any diagnostic results supporting the discharge/admit diagnosis, lab results, radiology results, the need for outpatient follow up, a family practitioner, to return to the emergency department if symptoms worsen or persist or if there are any questions or concerns that arise at home. 18:40 ED course: No acute findings on labs, ecg, or imaging to note pneumonia or any other [facility] emergent event. Explained this to patient and family. Both are good with this and ready to go home . 12/27 16:18 Order name: Basic Metabolic Panel [facility] 12/27 16:18 Order name: CBC with Diff; Complete Time: 17:16 jr8 12/27 16:18 Order name: LFT's; Complete Time: 17: jr8 12/27 16:18 Order name: Magnesium; Complete Time: 17: jr8 12/27 16:18 Order name: XRAY Chest (1 view); Complete Time: 17:45 jr8 04/24 16:19 Order name: Basic Metabolic Panel; Complete Time: 17:26 [facility] 12/27 16:18 Order name: EKG; Complete Time: 16:19 [facility] 12/27 16:18 Order name: Cardiac monitoring; Complete Time: : 8 12/27 16:18 Order name: EKG - Nurse/Tech; Complete Time: : 8 12/27 16:18 Order name: IV Saline Lock; Complete Time: 16:59 8 12/27 16:18 Order name: Labs collected and sent; Complete Time: 16:59 8 12/27 16:18 Order name: O2 Per Protocol; Complete Time: : jr8 12/27 16:18 Order name: O2 Sat Monitoring; Complete Time: : jr EC:42 Rate is 79 beats/min. Rhythm is regular, Normal Sinus Rhythm. QRS [place] is Normal. [place] jr8 interval is normal at 158 msec. QRS interval is normal at 74 msec. QT interval is normal at 421 msec. No Q waves. T waves are Normal. No ST changes noted. Clinical impression: Normal ECG and No evidence of ischemia. Interpreted by me. Reviewed by me. Administered Medications: 17:32 Drug: Magnesium Sulfate 1 grams Route: IVPB; Infused Over: 1 hrs; Site: left ca1 antecubital; 18:37 Follow up: Response: No adverse reaction; IV Status: Completed infusion ca1 Disposition: 12/27/18 18:39 Discharged to Home. Impression: Muscle weakness (generalized), Hypomagnesemia. - Condition is Stable. - Discharge Instructions: Hypomagnesemia, Weakness. - Medication Reconciliation Form, Thank You Letter, Antibiotic Education, Prescription Opioid Use form. - Follow up: Private Physician; When: 2 - 3 days; Reason: Recheck today's complaints, Continuance of care, Re-evaluation by your physician. - Problem is new. - Symptoms have improved. Signatures: Dispatcher [employer] [facility] Dwayne Cardoza PA PA jr8 Alessia Richmond, RN RN Malinda Hood RN RN ca1 Corrections: (The following items were deleted from the chart) 19:11 18:39 12/27/2018 18:39 Discharged to Home. Impression: Muscle weakness (generalized); ca1 Hypomagnesemia. Condition is Stable. Forms are Medication Reconciliation Form, Thank You Letter, Antibiotic Education, Prescription Opioid Use. Follow up: Private Physician; When: 2 - 3 days; Reason: Recheck today's complaints, Continuance of care, Re-evaluation by your physician. Problem is new. Symptoms have improved. jr8
--- NOTE | 2018-12-27 18:40 | ER ---
Nurse's Notes [facility] Name: Summer Coates Age: 53 yrs Sex: Female : 1965 Arrival Date: 12/27/2018 Time: 15:56 Bed 23 Private MD: Diagnosis: Muscle weakness (generalized);Hypomagnesemia Presentation: 12/27 15:59 Presenting complaint: Productive cough and wheezing x 2-3 days. Denies fever. hb Transition of care: patient was not received from another setting of care. Onset of symptoms was December 24, 2018. Risk Assessment: Do you want to hurt yourself or someone else? Patient reports no desire to harm self or others. Care prior to arrival: None. 15:59 Method Of Arrival: Wheelchair hb 15:59 Acuity: NACHO 3 hb 16:20 Initial Sepsis Screen: Does the patient meet any 2 criteria? No. Patient's initial ca1 sepsis screen is negative. Does the patient have a suspected source of infection? Yes: Productive cough/pneumonia. CONSTRUCTION FRAMER: 17:00 LMP N/A - Post-menopause ca1 Historical: - Allergies: 16:01 Phenergan; hb - Home Meds: 17:17 atorvastatin 40 mg Oral tab 1 tab nightly [Active]; benzonatate 100 mg Oral cap 1 cap ca1 every 8 hours [Active]; eszopiclone 2 mg Oral tab 1 tab once daily [Active]; fluoxetine 40 mg oral cap 1 cap once daily [Active]; Keppra 750 mg Oral tab 1 tab 2 times per day [Active]; levothyroxine 88 mcg tab 1 tab once daily [Active]; Lunesta Oral [Active]; metoprolol tartrate 25 mg Oral tab .5 tab 2 times per day [Active]; Multiple Vitamins Oral tab daily [Active]; omeprazole 40 mg Oral cpDR 1 cap nightly [Active]; Symbicort 160-4.5 mcg/actuation inhalation HFAA 2 puffs 2 times per day [Active]; Vitamin D Oral 2000 unit daily [Active]; melatonin 5 mg Oral tab .5 tab nightly [Active]; - PMHx: 16:01 brain and spinal tumors; DYSPHAGIA; Cerebral infarction; hemiplegia left; hb Hyperlipidemia; GERD; Hypothyroidism; traumatic subarachnoid hemorrhage; Hypertension; Depression; 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 - Social history:: Smoking status: Patient/guardian denies using tobacco. - Ebola Screening: : No symptoms or risks identified at this time. Screenin:05 Abuse screen: Denies threats or abuse. Denies injuries from another. Nutritional ca1 screening: No deficits noted. Tuberculosis screening: No symptoms or risk factors identified. Fall Risk Secondary diagnosis (15 points) seizures, impaired mobility, IV access (20 points). Ambulatory Aid- None/Bed Rest/Nurse Assist (0 pts). Gait- Normal/Bed Rest/Wheelchair (0 pts). Assessment: 16:05 General: Appears in no apparent distress. uncomfortable, Behavior is calm, cooperative. ca1 Pain: Denies pain. Neuro: Level of Consciousness is awake, alert, obeys commands, Oriented to person, place, situation. Cardiovascular: Heart tones S1 S2 present Capillary refill < 3 seconds Patient's skin is warm and dry. Rhythm is sinus rhythm. Respiratory: Airway is patent Respiratory effort is even, unlabored, Respiratory pattern is regular, symmetrical, Breath sounds are clear bilaterally. Parent/caregiver reports the patient having cough that is productive, since since 4 days ago. GI: Abdomen is flat, non-distended, Bowel sounds present X 4 quads. Abd is soft and non tender X 4 quads. : No deficits noted. No signs and/or symptoms were reported regarding the genitourinary system. EENT: No deficits noted. No signs and/or symptoms were reported regarding the EENT system. Derm: Skin is intact, is healthy with good turgor, Skin is pink, warm \T\ dry. Musculoskeletal: Capillary refill < 3 seconds, Range of motion: limited in all extremities. 17:03 Reassessment: Patient appears in no apparent distress at this time. Patient is alert, ca1 oriented x 3, equal unlabored respirations, skin warm/dry/pink. 17:53 Reassessment: Patient appears in no apparent distress at this time. Patient is alert, ca1 oriented x 3, equal unlabored respirations, skin warm/dry/pink. 18:50 Reassessment: Patient appears in no apparent distress at this time. Patient is alert, ca1 oriented x 3, equal unlabored respirations, skin warm/dry/pink. Vital Signs: 15:59 BP 118 / 72; Pulse 82; Resp 16; Temp 98.2; Pulse Ox 96% ; Pain 0/10; hb 17:03 BP 109 / 61; Pulse 83; Resp 17 S; Pulse Ox 98% on R/A; ca1 17:53 BP 116 / 62; Pulse 81; Resp 19 S; Pulse Ox 96% on R/A; ca1 18:18 BP 109 / 86; Pulse 78; Resp 21 S; Pulse Ox 98% on R/A; ca1 18:50 BP 127 / 68; Pulse 78; Resp 19 S; Pulse Ox 98% on R/A; ca1 ED Course: 15:56 Patient arrived in ED. mr 16:00 Triage completed. hb 16:00 Arm band placed on. hb 16:03 Dwayne Cardoza PA is PHCP. jr8 16:03 Raul Chacon MD is Attending Physician. jr8 16:05 Patient has correct armband on for positive identification. Placed in gown. Bed in low ca1 position. Call light in reach. Side rails up X2. Warm blanket given. 16:05 surveillance monitor on. Pulse ox on. NIBP on. ca1 16:07 Malinda Hood, NAIDA is Primary Nurse. ca1 16:56 Inserted saline lock: 24 gauge in left antecubital area, using aseptic technique. Blood ca1 collected. 17:19 XRAY Chest (1 view) In Process Unspecified. EDMS 19:00 No provider procedures requiring assistance completed. IV discontinued, intact, ca1 bleeding controlled, No redness/swelling at site. Pressure dressing applied. Administered Medications: 17:32 Drug: Magnesium Sulfate 1 grams Route: IVPB; Infused Over: 1 hrs; Site: left ca1 antecubital; 18:37 Follow up: Response: No adverse reaction; IV Status: Completed infusion ca1 Outcome: 18:39 Discharge ordered by . jr8 19:00 Discharged to home via wheelchair, with family. ca1 19:00 Condition: stable 19:00 Discharge instructions given to family, Instructed on discharge instructions, follow up and referral plans. 19:11 Patient left the ED. ca1 Signatures: Dispatcher [employer] EDMD WallerMilena mr Dwayne Cardoza PA PA jr8 Alessia Richmond RN RN Malinda Hood RN RN ca1 Corrections: (The following items were deleted from the chart) 17:07 17:03 BP 109 / 61; Pulse 83bpm; Resp 17bpm; Spontaneous; Pulse Ox 94% RA; ca1 ca1 : 16:05 surveillance monitor on. Pulse ox on. NIBP on. ca1 ca1 19:10 No provider procedures requiring assistance completed. ca1 ca1 19:10 IV discontinued, intact, bleeding controlled, No redness/swelling at site. ca1 Pressure dressing applied, ca1
[2018-12-27 19:29] VITALS: TEMP 98.2
[2018-12-27 19:31] VITALS: O2SAT 98
[2018-12-27 19:32] VITALS: BP 127/68
--- NOTE | 2018-12-28 08:39 | EKG ---
Test Date: 2018-12-27 Test Time: 16:31:33 Spring Assembler Supervisor: DAPHNE MEASUREMENT RESULTS: Intervals: Rate: 79 WI: 158 QRSD: 74 QT: 368 QTc: 421 [place]: P: 63 WI: 158 QRS: 18 T: 44 INTERPRETIVE STATEMENTS: Normal sinus rhythm Normal ECG Compared to ECG 10/03/2017 21:01:45 No significant changes Electronically Signed On 12-28-18 08:36:55 CDT by Charly Snow
== END 2018-12-27 19:11 | disposition home or self-care (01) ==
LOC: ER 15:53
DX: M62.81 Muscle weakness (generalized) (principal); E83.42 Hypomagnesemia; Z88.8 Allergy status to other drugs, medicaments and biological substances; E78.5 Hyperlipidemia, unspecified; K21.9 Gastro-esophageal reflux disease without esophagitis; I10 Essential (primary) hypertension; F32.9 Major depressive disorder, single episode, unspecified
CPT/HCPCS: 96365; 93005; 85025; 80048; 36415; 83735; 80076; 71045; 99284; J3475

== ENCOUNTER 2019-01-05 17:38 | Emergency (ER) | payer OTHER ==
--- OUTSIDE RECORDS SUMMARY | 2019-01-05 17:42 | XMS REPORT | Clinical Summary ---
:1965 Author Organization [facility] Address [address] [place] [address] Care Team Providers Name Role Phone Unavailable [...] tablet Active Problems Problem Noted Date S/P IUSS MASTER ANALYST shunt 07/18/2017 Sepsis 03/21/2017 Meningitis 03/20/2017 Bronchorrhea [...] Encounters Date Type Specialty Care Team Description 01/02/2019 Refill Internal Medicine Payal Mahan MD G tube feedings ([facility]) ; Cough 12/12/2018 Refill Internal Medicine Payal Mahan MD G tube feedings ([facility]) ; Cough 10/15/2018 Refill Internal Medicine Payal Mahan MD G tube feedings ([facility]) ; Cough 06/20/2018 Telephone Internal Medicine Payal Mahan MD 06/18/2018 Refill Internal Payal Garcia MD 06/13/2018 Refill Internal Medicine Payal Mahan MD 06/05/2018 Refill Internal Medicine Payal Mahan MD 05/15/2018 Refill Internal Medicine Payal Mahan MD 04/18/2018 Refill Internal Medicine Payal aMhan MD G tube feedings; Cough 04/13/2018 Refill Internal Medicine Payal Mahan MD G tube feedings; Cough 02/05/2018 Refill Internal Payal Garcia MD 01/28/2018 Refill Internal Medicine Payal Mahan MD 01/14/2018 Refill Internal Medicine Payal Mahan MD after 01/04/2018 Immunizations Name Dates Previously Given Next Due [...] SCREENING 04/13/2027 04/13/2017 Implants Implanted Type Area Multiple Spindle Screw Machine Operator Device Shelf Model / Identifier Expiration Serial / Date Lot Valve Strata Reg Hydcepls Adjstbl Ltxf - [id number] Cardiovascular Right: MEDTRONIC PS 11/03/2019 [id number] / Implanted: Qty: 1 on 04/17/2017 by Marilia Sullivan MD Implants N/A MEDICAL / [id number] Plate Crnl Str 2h Ti 1.6mm - [id number] Cranial Plate or N/A: Grabbed [id number] / Implanted: 03/30/2017 (Quantity not on file) [place] Cover N/A MAXIOFACIAL / IMPLANT Plate Bone Lpr 6hl Strut Ti Neuro - [id number] Cranial Plate or N/A: Grabbed [id number] / Implanted: 03/30/2017 (Quantity not on file) [place] Cover N/A MAXIOFACIAL / IMPLANT Screw Bone Slf-Drl Mtrxnuro Ti 4mm - [id number] Cranial Plate or N/A: Grabbed 04 503 [id number] 01 / Implanted: 03/30/2017 (Quantity not on file) [place] Cover N/A MAXIOFACIAL / IMPLANT Screw Bone Sylvie Ti 4mm Matrixneuro - [id number] Cranial Plate or N/A: Grabbed 04 503 114 01 / Implanted: 03/31/2017 (Quantity not on file) [place] Cover N/A MAXIOFACIAL / IMPLANT Catheter Card Ps Med 90cm 1.3x2.5mm Std - [id number] Surgical Right: MEDTRONIC PS 12/03/2021 [id number] / Implanted: Qty: 1 on 04/17/2017 by Marilia Sullivan MD Implantable N/A MEDICAL / Shunts or Shunt [id number] Extenders Catheter Carlos 23cm 1.3x2.5mm Std Barium Imprgntd - [id number] Surgical Right: [place] [id number] / Implanted: Qty: 1 on 04/17/2017 by Marilia Sullivan MD Implantable N/A MEDICAL / Shunts or Shunt Extenders Catheter Angiography Diag [facility] [place] Photogrammetric Engineer Ii 5fr 100cm - [id number] Surgical N/A: BSC PERIPHERAL [id number] / Implanted: 03/22/2017 (Quantity not on file) Implants; N/A INTERVENTION / Expanders; VASCULAR LISE Extenders; Surgical Wires Device Vasclr Clsr 5fr - [id number] Surgical N/A: ISAIAS AND 11/02/2018 [id number] / Implanted: 03/22/2017 (Quantity not on file) Implants; N/A ISAIAS DIV OF / Expanders; CORDIS [id number] Extenders; Surgical Wires Catheter Angiography Diag [facility] Photogrammetric Engineer Ii 5fr 100cm - [id number] Surgical N/A: [facility] PERIPHERAL [id number] / Implanted: 03/29/2017 (Quantity not on file) Implants; N/A INTERVENTION / Expanders; VASCULAR LISE Extenders; Surgical Wires Device Vasclr Clsr 5fr - [id number] Surgical N/A: ISAIAS AND 11/02/2018 EX500 / Implanted: 03/29/2017 (Quantity not on file) Implants; N/A ISAIAS DIV OF / Expanders; CORDIS [id number] Extenders; Surgical Wires Kit Hemostatic Matrix W/Thrombin 8ml Surgiflo - [id number] Surgical N/A: ETHICON [facility] 09/04/2018 [id number] / Implanted: 03/30/2017 (Quantity not on file) Implants; N/A / Expanders; [id number] Extenders; Surgical Wires Kit Hemostatic Matrix W/Thrombin 8ml Surgiflo - [id number] Surgical N/A: ETHICON [facility] 09/04/2018 2994 / Implanted: 03/30/2017 (Quantity not on file) Implants; N/A / Expanders; [id number] Extenders; Surgical Wires Catheter Drainge Carlos Ventriclear Ii - [id number] Surgical N/A: MEDTRONIC [id number] / Implanted: 03/30/2017 (Quantity not on file) Implants; N/A NEUROSURGERY / Expanders; Extenders; Surgical Wires Device Vasclr Clsr 5fr - [id number] Surgical N/A: ISAIAS AND 05/05/2018 EX500 / Implanted: 03/30/2017 (Quantity not on file) Implants; N/A ISAIAS DIV OF / Expanders; CORDIS [id number] Extenders; Surgical Wires Catheter Drainge Carlos Ventriclear Ii - [id number] Surgical N/A: MEDTRONIC [id number] / Implanted: 03/30/2017 (Quantity not on file) Implants; N/A NEUROSURGERY / Expanders; Extenders; Surgical Wires Device Vasclr Clsr 6fr - [id number] Surgical N/A: ISAIAS AND 05/05/2018 EX600 / Implanted: 04/11/2017 (Quantity not on file) Implants; N/A ISAIAS DIV OF / Expanders; CORDIS [id number] Extenders; Surgical Wires Kit Hemostatic Matrix W/Thrombin 8ml Surgiflo - [id number] Surgical N/A: ETHICON [facility] 11/02/2018 2994 / Implanted: Qty: 1 on 04/17/2017 by Marilia Sullivan MD Implants; N/A / Expanders; [id number] Extenders; Surgical Wires Procedures Procedure Name Priority Date/Time Associated Diagnosis Comments TRANSFUSE FRESH FROZEN STAT 05/10/2018 5:37 PM CDT PLASMA TRANSFUSE FRESH FROZEN STAT 05/10/2018 5:37 PM CDT PLASMA TRANSFUSE RED BLOOD Routine 05/10/2018 5:37 PM CDT CELLS TRANSFUSE RED BLOOD Routine 05/10/2018 5:37 PM CDT CELLS TRANSFUSE RED BLOOD Routine 05/10/2018 5:37 PM CDT CELLS after 01/04/2018 Results Transfuse fresh frozen plasma (05/10/2018 5:37 PM CDT)Only the most recent of3 resultswithin the time period is included.Transfuse RBC (05/10/2018 5:37 PM CDT )Only the most recent of5 resultswithin the time period is included.after 2017 Insurance Payer Benefit Plan / Group Subscriber ID Type Phone Address BCBS BCBS CHOICE PPO/F[employer]ER[employer] EMPL PPO xxxxxxxxxxxx PPO (Work) [id number] Advance Directives Patient has advance care planning documents on file. For more information, please contact:Magno Albright[address] [place] [address]
[2019-01-05] MEDS ORDERED: NOREPINEPHRINE 4mg/D5W 250mL 4 MG/250 ML BAG IV ONE (18:01)
--- NOTE | 2019-01-05 18:18 | RAD REPORT ---
EXAM DESCRIPTION: RAD - Chest Single View - 01/05/2019 6:12 pm CLINICAL HISTORY: post CPR Chest pain. COMPARISON: Chest Single View dated 12/27/2018; Chest Single View dated 10/03/2017; Chest Single View dated 01/20/2016 FINDINGS: Portable technique limits examination quality. The stomach is quite distended with air with an NG tube in place. Small right pleural effusion is not ed. Lungs are mildly underinflated with mild vascular prominence. Tip of the ET tube is somewhat obsc ured by thoracic hardware felt to be at or above the level of the jose martin. Cardiac size is normal.
[2019-01-05 18:27] LABS: Protime INR 1.14
[2019-01-05 18:41] LABS: Potassium 3.6 mmol/L (3.5-5.1); Troponin (Emerg Dept Use Only) 0.18 ng/mL (0.0-0.045)
[2019-01-05 18:48] LABS: Absolute Monocytes 0.2 K/uL (0.1-1.3); Absolute Neutrophil 6.9 K/uL (1.8-8.0); Basophils % 0.4 % (0-1.3); Eosinophils % 0.7 % (0-4.4); Hematocrit 30.1 % (36.0-45.0); Lymphocytes % 55.3 % (15.3-44.8); RBC Red Blood Cell Count 2.98 M/uL (3.86-4.86)
--- NOTE | 2019-01-05 19:09 | ER ---
Nurse's Notes [facility] Name: Summer Coates Age: 53 yrs Sex: Female : 1965 Arrival Date: 01/05/2019 Time: 17:46 Bed 3 Private MD: Diagnosis: Cardiac arrest Presentation: 01/05 17:34 Presenting complaint: EMS states: found laying in bed by family unresponsive, stated sv that she was eating in bed before this occurred. CPR started at 1645 by the fire dept. On EMS arrival pt was asystole, CPR continued, Epi 1mg IVP given and 2 rounds of push dose Epi 1:100,000 given. Pt intubated with 8.0 ET tube 24-lip. ROSC achieved at 1720. BP 70/40, ST. Oral suction done and food found in oral cavity. Care prior to arrival: Oral intubation, CPR via thumper performed by EMS Medication(s) given: Epinephrine IV initiated. in the right IO tibia Glucose check: 243 Oxygen administered. via AMBU bag. Compressions began at 16:45. 17:34 Method Of Arrival: EMS: [place]. com. cn EMS sv 17:34 Acuity: NACHO 1 sv 17:40 Compressions began at 17:40. sv 17:40 Transition of care: patient was not received from another setting of care. Onset of iw symptoms was January 05, 2019. Risk Assessment: Do you want to hurt yourself or someone else? Patient reports no desire to harm self or others. Initial Sepsis Screen: Does the patient meet any 2 criteria? Does the patient have a suspected source of infection?. 18:05 Compressions began at 18:05. 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 - Social history:: Smoking status: unknown. - Ebola Screening: : Unable to complete screening because patient is unresponsive, patient is intubated. - Unable to obtain history due to: unresponsive. Screenin:35 Abuse screen: Denies threats or abuse. Denies injuries from another. Nutritional iw screening: No deficits noted. Tuberculosis screening: No symptoms or risk factors identified. Fall Risk None identified. Assessment: 17:34 CPR assessment: unresponsive, no respiratory effort, intubated, Ambu ventilation. sv General: Appears distressed, Behavior is uncooperative, intubated. Neuro: Level of Consciousness is unresponsive, Oriented to none. Respiratory: Airway via oral intubation Respiratory effort is even, Respiratory pattern is regular. 17:40 Reassessment: Pt asystole, manual CPR started. sv 17:43 Reassessment: Pulse check, ST-[address] Valdez. sv 18:05 Reassessment: Pt's HR was 50 SB and then PEA, manual CPR started. Dr Valdez at bedside. sv 18:07 Reassessment: CPR stopped for pulse check, HR-66 SR. sv 18:20 Reassessment: pt BP dropped to 60s systolic, no palpable pulse PEA on monitor, CPR iw initiated, 1 mg epi given, regained central pulses after 2 minutes, family notified by Dr. Valdez. 18:28 Reassessment: family at bedside. iw 18:35 Reassessment: no palpable pulses, CPR started, Dr. Valdez notified, pt regained faint iw femoral after 2 minutes CPR, levophed increased to 20 mcg/min. 18:55 Reassessment: pt shona down to 40 bpm, BP 60's systolic, no palpable pulses, family at bedside, compression started, family at bedside, pt regained faint palpable pulse after 2 min of compressions. 18:59 Reassessment: family at bedside, pt shona at 30 bpm, pt remains with faint palpable iw pulse, visualized on US, pt then became pulseless, asystole on monitor, family at bedside, son agrees to terminate code at 1903. 19:15 Reassessment: Waiting on daughter Lisa, who is power of district attorney to come to hospital [facility] to release body to home. Daughter stated she would be here in 1 hour. 20:00 Reassessment: [employer] case #[id number]. hb 23:47 Reassessment: Daughter arrived to ER at approx 2300 and notified [facility] of [facility] wanting autopsy performed on body. Details worked out between [facility] home and daughter Lisa, she then signed paperwork to release patient to [facility]. Vital Signs: 17:35 Weight 40.82 kg (R); iw 17:43 BP 69 / 42; Pulse Ox 100% on ETT ambu; sv 17:47 Pulse Ox 100% on 100% FiO2 ETT vent; sv 17:48 BP 131 / 75; Pulse 113; Resp 16; Pulse Ox 100% on 100% FiO2 ETT vent; sv 18:07 BP 176 / 96; Pulse 66; Resp 22; Pulse Ox 98% on 100% FiO2 ETT vent; sv 18:19 BP 61 / 32; Pulse 88; Resp 18 A; Pulse Ox 99% on ETT vent; iw 18:27 BP 169 / 94; Pulse 112; Resp 18 A; Pulse Ox 99% on ETT vent; iw 18:32 BP 123 / 70; Pulse 100; Resp 20 A; Temp 92.3(C); Pulse Ox 100% on ETT vent; Pain 0/10; iw 17:47 AC-16, TV-450, PEEP-5 sv Hominy Coma Score: 18:32 Eye Response: none(1). Verbal Response: none(1). Motor Response: none(1). Total: 3. iw ED Course: 17:34 Maintain EMS IV. Dressing intact. Site clean \T\ dry. IO to right tibia. sv 17:35 media monitor on. Pulse ox on. NIBP on. sv 17:46 Patient arrived in ED. ms 17:55 Triage completed. sv 17:55 Assisted provider with central line placement. Set up central line tray. Triple lumen sv line placed in right femoral. Line placed by Bruno Valdez MD Placement verified by blood return, Dressed with Tegaderm, Patient tolerated well. Before procedure, did Practitioner(s) obtain informed consent? No. Patient \T\ family education about procedure, CLABSI prevention and S/S of infection? No. Time-out/Briefing performed prior to start of procedure? Yes. Was handwashing/sanitizing done immediately prior to procedure? Yes. Was patient positioned to in a way to prevent air embolism? Yes. Was procedure site sterilized? Yes, with chlorhexidine. Was the site allowed to dry? Yes. Was local anesthetic and/or sedation utilized? Yes. During the procedure, did the Practitioner(s) maintain a sterile field? Yes. Were unused ports clamped during insertion? No. Was a 2nd qualified MD obtained after 3 unsuccessful insertion attempts? Yes. Was blood aspirated from each lumen? Yes. After the procedure, did the Practitioner(s) clean the site and apply a sterile dressing? Yes. 17:55 NGT: inserted 12 Fr. other oral, done by Harry PASCAL verified placement of air over sv stomach, to intermittent suction. 18:00 Bruno Valdez MD is Attending Physician. rn 18:10 X-ray(s) taken. sv 18:12 Chest Single View XRAY In Process Unspecified. EDMS 18:16 Dumont cath inserted, using sterile technique, 16 Fr., by ED staff, balloon inflated, to sv gravity drainage, other done by Roxanne PASCAL, criticore. 18:16 Arm band placed on. sv 18:17 Patient has correct armband on for positive identification. sv 18:26 Roxanne Sam RN is Primary Nurse. iw 19:08 Bruno Valdez MD is Pronouncing Provider. rn 21:34 Primary Nurse role handed off by Roxanne Sam RN ed1 Administered Medications: 17:39 Drug: NS 0.9% (30 ml/kg) 30 ml/kg Route: IV; Rate: bolus; Site: Other; iw 19:00 Follow up: IV Status: Completed infusion iw 17:41 Drug: EPINEPHrine 0.1mg/mL 1:10,000 1 mg {Note: given by Roxanne PASCAL.} Route: IVP; Site: sv Other; 17:45 Follow up: Response: Cardiac rhythm changed iw 17:42 Drug: Sodium Bicarbonate 1 amp {Note: given by Roxanne PASCAL.} Route: IVP; Site: Other; sv 18:00 Follow up: Response: No adverse reaction iw 17:55 Drug: Levophed (4 mg/250 mL D5W 4 mcg/min {Note: IO.} Route: IV; Rate: calculated rate; iw Site: Other; 18:05 Follow up: IV SiteChange: right femoral; IV SiteChange Reason: Infiltration iw 19:03 Follow up: IV Status: Order to discontinue infusion iw 18:06 Drug: EPINEPHrine 0.1mg/mL 1:10,000 1 mg {Note: given by Roxanne PASCAL.} Route: IVP; Site: sv right femoral; 18:10 Follow up: Response: Cardiac rhythm changed iw 18:20 Drug: EPINEPHrine 0.1mg/mL 1:10,000 1 mg Route: IVP; Site: right femoral; iw 18:25 Follow up: Response: Cardiac rhythm changed Point of Care Testing: Blood Glucose: 17:34 Blood Glucose: 253 mg/dL; sv Ranges: Outcome: 19:03 Patient : Time of 19:03 Pronounced by Bruno Valdez MD iw 23:50 Patient left the ED. tl1 Signatures: Dispatcher [employer] Priscilla Machuca RN RN Roxanne Sam RN RN Sherie Keene ms, Roman, MD MD rn Riggs, Erika, RN RN ed1 Christy Haynes RN RN tl1 Alessia Richmond RN RN Corrections: (The following items were deleted from the chart) 18:04 17:34 Presenting complaint: EMS states: found laying in bed by family unresponsive, sv stated that she was eating in bed before this. CPR started at 1645 by the fire dept. On EMS arrival pt was asystole, CPR continued, Epi 1mg IVP given and 2 rounds of push dose Epi 1:100,000 given. Pt intubated with 8.0 ET tube 24-lip. ROSC achieved at 1720. BP 70/40, ST. Oral suction done and food found in oral cavity. sv 18:12 18:05 Reassessment: Pt's HR was 50 SB and then PEA, manual CPR started. sv sv
--- NOTE | 2019-01-05 19:09 | EDPHYS ---
Physician Documentation [facility] Name: Summer Coates Age: 53 yrs Sex: Female : 1965 Arrival Date: 01/05/2019 Time: 17:46 Bed 3 Private MD: ED Physician Bruno Valdez HPI: 01/05 18:21 This 53 yrs old Female presents to ER via EMS with complaints of CPR - with rn ROSC. 18:21 Preceding the arrest, the patient was found down by family. The arrest occurred at rn home. It is unknown whether or not the patient has had similar symptoms in the past. Per EMS, found down, laying flat in bed, no pulse, + bystander CPR for unknown duration, had just eaten and intubated by EMS, numerous food particles in pharynx. 15 min ACLS by EMS, with eventual ROSC. Given multiple doses of push dose epi for hypotension. When transferred to our bed, no pulse. . Historical: - Allergies: 17:59 Phenergan; sv - PMHx: 17:59 brain and spinal tumors; Cerebral infarction; Depression; DYSPHAGIA; GERD; hemiplegia sv left; Hyperlipidemia; Hypertension; Hypothyroidism; traumatic subarachnoid hemorrhage; [employer]; Seizures; 1 lung doesn't fully function; Hydrocephalus; - PSHx: 17:59 brain sx; sv - Immunization history:: Adult Immunizations unknown. - Social history:: Smoking status: unknown. - Ebola Screening: : Unable to complete screening because patient is unresponsive, patient is intubated. - Unable to obtain history due to: unresponsive. ROS: 18:21 Unable to obtain ROS due to comatose state. rn Exam: 18:21 Constitutional: THin cachectic female, intubated, GCS 3 without sedation Head/Face: rn Normocephalic, atraumatic. Eyes: Pupils dilated and no response ENT: dry MM Cardiovascular: Tachycardic, irregular Respiratory: coarse bilateral breath sounds with ventilator Abdomen/GI: scaphoid abdomen, no distension or masses Skin: Dry, cool extremities Neuro: GCS 3, intubated Vital Signs: 17:35 Weight 40.82 kg (R); iw 17:43 BP 69 / 42; Pulse Ox 100% on ETT ambu; sv 17:47 Pulse Ox 100% on 100% FiO2 ETT vent; sv 17:48 BP 131 / 75; Pulse 113; Resp 16; Pulse Ox 100% on 100% FiO2 ETT vent; sv 18:07 BP 176 / 96; Pulse 66; Resp 22; Pulse Ox 98% on 100% FiO2 ETT vent; sv 18:19 BP 61 / 32; Pulse 88; Resp 18 A; Pulse Ox 99% on ETT vent; iw 18:27 BP 169 / 94; Pulse 112; Resp 18 A; Pulse Ox 99% on ETT vent; iw 18:32 BP 123 / 70; Pulse 100; Resp 20 A; Temp 92.3(C); Pulse Ox 100% on ETT vent; Pain 0/10; iw 17:47 AC-16, TV-450, PEEP-5 sv Earnest Coma Score: 18:32 Eye Response: none(1). Verbal Response: none(1). Motor Response: none(1). Total: 3. iw Procedures: 18:21 Central Line: the site was prepped with Betadine, in sterile fashion, a triple lumen rn catheter was inserted, in the right femoral vein, in 1 attempts. placement was verified, by blood return, ultrasound, the site was dressed with Tegaderm, using sterile technique, the patient tolerated the procedure, well. 18:21 CPR: See CPR flow sheet. Initial patient assessment: unresponsive, pupils fixed \T\ rn dilated, no respiratory effort, mechanical ventilation, The presenting cardiac rhythm is PEA. the patient was intubated prior to arrival, Compressions: began regained rhythm. MDM: 18:00 Patient medically screened. rn 19:05 Differential diagnosis: cardiac arrest, respiratory arrest. Data reviewed: vital signs, rn nurses notes. Response to treatment: the patient's symptoms have worsened after treatment. ED course: Pt with multiple episodes of bradycardia, responded to epinephrine but worse with time despite fluid and levophed resuscitation. Family brought into room for several of last CPR episodes and efforts stopped \T\ 1903. Core temp 91, bradycardic with PEA, and no readable BP. . 01/05 18:01 Order name: Basic Metabolic Panel; Complete Time: 19:09 rn 01/05 18: Order name: Blood Culture Adult (2) rn 01/05 18: Order name: CBC with Diff rn 01/05 18: Order name: CPK; Complete Time: 19: rn 01/05 18: Order name: Lactate; Complete Time: 19:09 rn 01/05 18:01 Order name: Procalcitonin; Complete Time: 19: rn 01/05 18:01 Order name: Protime (+inr); Complete Time: 19:09 rn 01/05 18:01 Order name: Ptt, Activated; Complete Time: 19: rn 01/05 18:01 Order name: Troponin (emerg Dept Use Only); Complete Time: 19:09 rn 01/05 18:01 Order name: Chest Single View XRAY; Complete Time: 19: rn 01/05 18:50 Order name: CBC Smear Scan EDMS 05 18:01 Order name: Accucheck; Complete Time: 19:32 rn 01/05 18:01 Order name: Cardiac monitoring; Complete Time: 19:32 rn 01/05 18:01 Order name: EKG - Nurse/Tech; Complete Time: 19:32 rn 01/05 18:01 Order name: IV Saline Lock - Large Bore; Complete Time: 19:32 rn 01/05 18:01 Order name: Labs collected and sent; Complete Time: 20: rn 01/05 18:01 Order name: O2 Per Protocol; Complete Time: 20:05 rn 01/05 18:01 Order name: O2 Sat Monitoring; Complete Time: 20: rn 01/05 18:01 Order name: Urine Dipstick-Ancillary (obtain specimen); Complete Time: 20:05 rn Administered Medications: 17:39 Drug: NS 0.9% (30 ml/kg) 30 ml/kg Route: IV; Rate: bolus; Site: Other; iw 19:00 Follow up: IV Status: Completed infusion iw 17:41 Drug: EPINEPHrine 0.1mg/mL 1:10,000 1 mg {Note: given by Roxanne PASCAL.} Route: IVP; Site: Other; 17:45 Follow up: Response: Cardiac rhythm changed iw 17:42 Drug: Sodium Bicarbonate 1 amp {Note: given by Roxanne PASCAL.} Route: IVP; Site: Other; sv 18:00 Follow up: Response: No adverse reaction iw 17:55 Drug: Levophed (4 mg/250 mL D5W 4 mcg/min {Note: IO.} Route: IV; Rate: calculated rate; iw Site: Other; 18:05 Follow up: IV SiteChange: right femoral; IV SiteChange Reason: Infiltration iw 19:03 Follow up: IV Status: Order to discontinue infusion iw 18:06 Drug: EPINEPHrine 0.1mg/mL 1:10,000 1 mg {Note: given by Roxanne PASCAL.} Route: IVP; Site: sv right femoral; 18:10 Follow up: Response: Cardiac rhythm changed iw 18:20 Drug: EPINEPHrine 0.1mg/mL 1:10,000 1 mg Route: IVP; Site: right femoral; iw 18:25 Follow up: Response: Cardiac rhythm changed Point of Care Testing: Blood Glucose: 17:34 Blood Glucose: 253 mg/dL; sv Ranges: Critical Glucose Levels:Adult <50 mg/dl or >400 mg/dl <40 mg/dl or >180 mg/dl Disposition: 19:05 Critical Care:. . rn 19:08 . rn Disposition: Patient pronounced on 01/05/19 19:03 by Bruno Valdez. Impression: Cardiac arrest. - Released to Home. Critical care time excluding procedures: 19:05 Critical care time: Bedside Care: 20 minutes, Consultation: 5 minutes, Family rn Intervention: 10 minutes. Total time: 35 minutes Signatures: Dispatcher [employer] EDPriscilla Rubio RN RN sv Williams, Irene, RN RN Bruno Valdez MD MD rn Lasagna, Tonya RN RN [email or web address] Corrections: (The following items were deleted from the chart) 19:11 18:02 Head Brain Wo Cont+CT.RAD.BRZ ordered. EDMS EDMS 20:19 18:02 UA MICROSCOPIC+U.LAB.BRZ ordered. EDMS EDMS 23:50 19:08 01/05/2019 19:08 Patient pronounced on 01/05/2019 at 19:03 by Bruno Valdez. [email or web address] Impression: Cardiac arrest. Released to Home. rn
[2019-01-05 19:19] LABS: Platelet Estimate ADEQ; Urine White Blood Cell Casts OK
[2019-01-05 19:20] LABS: Blood Morphology Comment NOTED (NOT SEEN)
[2019-01-05 19:22] LABS: Burr Cells 1+; Poikilocytosis 1+
--- OUTSIDE RECORDS SUMMARY | 2019-01-05 19:33 | XMS REPORT | Summary of Care ---
:1965 Author Organization [facility] Address [address] [place] [address], [address] [address]- Encounter HQ Encntr_alias(FIN) [id number] Date(s): 08/26/17 - 08/26/[address], [address] [address]- [phone] Attending Physician: Leonor Luna, RN, [employer] Vital Signs No data available for this section Problem List No data available for this section Allergies, Adverse Reactions, Alerts No data available for this section Medications No data available for this section Results No data available for this section Immunizations No data available for this section Procedures No data available for this section Social History No data available for this section Assessment and Plan No data available for this section
--- OUTSIDE RECORDS SUMMARY | 2019-01-05 19:33 | XMS REPORT | Summary of Care ---
:1965 Author Organization [facility] [place] Address [address] [place] [address] [address] [place] [address]- Encounter HQ Encntr_alias(FIN) [id number] Date(s): 08/26/17 - 08/26/17 [facility] [address] [place], [place] [address] [phone] Discharge Disposition: Home or Self Care Vital Signs No data available for this [...]
--- OUTSIDE RECORDS SUMMARY | 2019-01-05 19:33 | XMS REPORT | Summary of Care ---
:1965 Author Organization [facility] Address [address] [place] [id number] Encounter HQ Encntr_alias(FIN) [id number] Date(s): 02/21/17 - 02/23/[address] Professional Services provided by [facility] [place] [address]- Discharge Disposition: Home or Self Care Attending Physician: Keagan Arreguin MD Admitting Physician: Keagan Arreguin MD Vital Signs Most recent to oldest 1 2 3 [Reference Range]: Height 165.1 cm (02/21/17 5:50 PM) Temperature Oral [96.4-99.1 98.4 DegF 98.0 DegF 97.6 DegF DegF] (02/22/17 8:11 PM) (02/22/17 4:00 AM) (02/22/17 2:00 AM) Blood Pressure [90-140/60-90 103/62 mmHg 99/61 mmHg 98/60 mmHg mmHg] (02/23/17 3:21 PM) (02/23/17 11:14 AM) (02/23/17 8:34 AM) Respiratory Rate [14-20 BRMIN] 17 BRMIN 16 BRMIN 18 BRMIN (02/23/17 3:21 PM) (02/23/17 11:14 AM) (02/23/17 8:34 AM) Peripheral Pulse Rate [60-100 100 bpm 94 bpm 98 bpm bpm] (02/23/17 3:21 PM) (02/23/17 11:14 AM) (02/23/17 8:34 AM) Weight 50 kg (02/21/17 5:50 PM) Body Mass Index 18.34 m2 (02/21/17 5:50 PM) Problem List Condition Effective Dates Status Health Status Informant Acute respiratory failure(Confirmed) Active Anemia(Confirmed) Active Aneurysm(Confirmed)1 Resolved Chronic back pain(Confirmed) Resolved 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, cortical(Confirmed) Dysphagia(Confirmed) Active History of subarachnoid Resolved hemorrhage(Confirmed) H/O tracheostomy(Confirmed) Active Hemiparesis affecting right side as Active late effect of stroke(Confirmed) HTN - Hypertension(Confirmed) Resolved Hypercapnia(Confirmed) Active Hypoxia(Confirmed) Active Metabolic encephalopathy(Confirmed) Active PEG - Percutaneous endoscopic Active gastrostomy catheter(Confirmed) Cognitive deficits following Active nontraumatic intracerebral hemorrhage(Confirmed) SAH - Subarachnoid Active hemorrhage(Confirmed) Stroke(Confirmed) Active 1Clipped in 2016 Allergies, Adverse Reactions, Alerts Substance Reaction Severity Status Phenergan Phenergan Active Medications atorvastatin 40 mg, 1 tab, Route: PO, Drug form: TAB, Bedtime, Dosing Weight 50, kg, Start date: 02/22/17 21:00:00 CDT, Duration: 30 day, Stop date: 03/23/17 21:00:00 CDT Notes: (Same as: Lipitor) Start Date: 02/22/17 Stop Date: 02/23/17 Status: Discontinuedcalcium carbonate 500 mg (200 mg elemental calcium) oral tablet 500 mg, 1 tab, Route: PO, Drug form: CHEWTAB, PRN, Dosing Weight 50, kg, PRN Abnormal Lab Result, FOR ICU USE ONLY, Start date: 02/22/17 2:02:00 CDT, Duration: 30 day, Stop date: 03/24/17 2:01:00 CDT Notes: (Same As: Tums)Calcium Carbonate 500 hv=568 mg elemental calcium Dose=_ mg calcium carbonate ( mg elemental calcium) Start Date: 02/22/17 Stop Date: 02/23/17 Status: Discontinuedcalcium carbonate 500 mg (200 mg elemental calcium) oral tablet 1,000 mg, 2 tab, Route: PO, Drug form: CHEWTAB, PRN, Dosing Weight 50, kg, PRN Abnormal Lab Result, FOR ICU USE ONLY, Start date: 02/22/17 2:02:00 CDT, Duration: 30 day, Stop date: 03/24/17 2:01:00 CDT Notes: (Same As: Tums)Calcium Carbonate 500 uo=188 mg elemental calcium Dose=_ mg calcium carbonate ( mg elemental calcium) Start Date: 02/22/17 Stop Date: 02/23/17 Status: Discontinuedcalcium gluconate + sodium chloride 0.9% INJ 50 mL 1 gm, 10 mL, Route: IVPB, PRN, Dosing Weight 50, kg, PRN Abnormal Lab Result, Start date: 02/22/17 2:02:00 CDT, Duration: 30 day, Stop date: 03/24/17 2:01:00 CDT, FOR ICU USE ONLY Notes: WASTE: F/P - Sink; E - Municipal Trash Bin Start Date: 02/22/17 Stop Date: 02/23/17 Status: Discontinuedcefepime 1 gm, Route: IVPB, ABXQ8H, Dosing Weight 50, kg, (CrCl >/=50 ml/min), Start date : 02/23/17 19:00:00 CDT, Duration: 10 day, Stop date: 03/05/17 11:00:00 CDT,ABX Indication: Other (specify in Comments) Start Date: 02/23/17 Stop Date: 02/23/17 Status: Discontinuedcefepime 2 gm, Route: IVPB, Drug form: INJ, ABXQ8H, Dosing Weight 50, kg, (CrCl >/=50 ml/ min, MANAGER POLICY infection or neutropenic fever), Start date: 02/22/17 10:00:00 CDT, Duration: 7 day, Stop date: 03/01/17 2:00:00 CDT, ABX Indication: MANAGER POLICY Infection/ Epidural Abcess Notes: (Same as: Balajiime) MEDICATION WASTE Product Size: 2000 mgProduct Wasted: ___ mg Start Date: 02/22/17 Stop Date: 02/23/17 Status: Discontinuedcefepime + sodium chloride 0.9% INJ 100 mL 2 gm, Route: IVPB, ABXQ8H, Dosing Weight 50, kg, (CrCl >/=50 ml/min, MANAGER POLICY infection or neutropenic fever), Start date: 02/22/17 0:00:00 CDT, Duration: 3 day,Stop date: 02/24/17 16:00:00 CDT, ABX Indication: MANAGER POLICY Infection/Epidural Abcess Notes: (Same as: Maxipime) MEDICATION WASTE Product Size: 2000 mgProduct Wasted: 0 mg Start Date: 02/22/17 Stop Date: 02/22/17 Status: DiscontinuedDextrose 50% Syringe 25 gm, 50 mL, Route: IVP, Drug Form: INJ, Dosing Weight 50, kg, PRN, PRN Blood Glucose Results, Start date: 02/22/17 2:03:00 CDT, Duration: 30 day, Stop date: 03/24/17 2:02:00 CDT Start Date: 02/22/17 Stop Date: 02/23/17 Status: DiscontinuedDextrose 50% Syringe 12.5 gm, 25 mL, Route: IVP, Drug Form: INJ, Dosing Weight 50, kg, PRN, PRN Blood Glucose Results, Start date: 02/22/17 2:03:00 CDT, Duration: 30 day, Stop date: 03/24/17 2:02:00 CDT Start Date: 02/22/17 Stop Date: 02/23/17 Status: Discontinueddocusate sodium 150 mg/15 mL oral liquid 100 mg, 10 mL, Route: PO, Drug form: LIQ, Q12H, Dosing Weight 50, kg, Start date : 02/21/17 21:00:00 CDT, Stop date: 03/23/17 9:00:00 CDT Notes: (Same as: Colace) Start Date: 02/21/17 Stop Date: 02/23/17 Status: DiscontinuedFlagyl 500 mg, Route: IVPB, ABXQ8H, Dosing Weight 50, kg, Start date: 02/23/17 19:00: 00 CDT, Duration: 10 day, Stop date: 03/05/17 11:00:00 CDT, ABX Indication: MANAGER POLICY Infection/Epidural Abcess Start Date: 02/23/17 Stop Date: 02/23/17 Status: Discontinuedglucagon 1 mg, Route: IM, Drug form: PDR/INJ, PRN, Dosing Weight 50, kg, PRN Blood Glucose Results, Start date: 02/22/17 2:03:00 CDT, Duration: 30 day, Stop date: 03/24/17 2:02:00 CDT Start Date: 02/22/17 Stop Date: 02/23/17 Status: DiscontinuedInsulin regular 10 unit, 0.1 mL, Route: SUB-Q, Drug form: SOLN, Sliding Scale, Dosing Weight 50 , kg, PRN Blood Glucose Results, Start date: 02/22/17 2:03:00 CDT, Duration: 30 day, Stop date: 03/24/17 2:02:00 CDT Notes: (Same as: Humulin R) Roll in palms of hands gently; Do not shake vigorously. "single patientuse only"(Restricted to patients requiring a dose > 60 units)WASTE: F/P - Black; E - Municipal Trash Bin Stable for 28 days at room temperatureExpires in days from Date Start Date: 02/22/17 Stop Date: 02/23/17 Status: DiscontinuedInsulin regular 8 unit, 0.08 mL, Route: SUB-Q, Drug form: SOLN, Sliding Scale, Dosing Weight 50 , kg, PRN Blood Glucose Results, Start date: 02/22/17 2:03:00 CDT, Duration: 30 day, Stop date: 03/24/17 2:02:00 CDT Notes: (Same as: Humulin R) Roll in palms of hands gently; Do not shake vigorously. "single patientuse only"(Restricted to patients requiring a dose > 60 units)WASTE: F/P - Black; E - Municipal Trash Bin Stable for 28 days at room temperatureExpires in days from Date Start Date: 02/22/17 Stop Date: 02/23/17 Status: DiscontinuedInsulin regular 4 unit, 0.04 mL, Route: SUB-Q, Drug form: SOLN, Sliding Scale, Dosing Weight 50 , kg, PRN Blood Glucose Results, Start date: 02/22/17 2:03:00 CDT, Duration: 30 day, Stop date: 03/24/17 2:02:00 CDT Notes: (Same as: Humulin R) Roll in palms of hands gently; Do not shake vigorously. "single patientuse only"(Restricted to patients requiring a dose > 60 units)WASTE: F/P - Black; E - Municipal Trash Bin Stable for 28 days at room temperatureExpires in days from Date Start Date: 02/22/17 Stop Date: 02/23/17 Status: DiscontinuedInsulin regular 6 unit, 0.06 mL, Route: SUB-Q, Drug form: SOLN, Sliding Scale, Dosing Weight 50 , kg, PRN Blood Glucose Results, Start date: 02/22/17 2:03:00 CDT, Duration: 30 day, Stop date: 03/24/17 2:02:00 CDT Notes: (Same as: Humulin R) Roll in palms of hands gently; Do not shake vigorously. "single patientuse only"(Restricted to patients requiring a dose > 60 units)WASTE: F/P - Black; E - Municipal Trash Bin Stable for 28 days at room temperatureExpires in days from Date Start Date: 02/22/17 Stop Date: 02/23/17 Status: DiscontinuedInsulin regular 2 unit, 0.02 mL, Route: SUB-Q, Drug form: SOLN, Sliding Scale, Dosing Weight 50 , kg, PRN Blood Glucose Results, Start date: 02/22/17 2:03:00 CDT, Duration: 30 day, Stop date: 03/24/17 2:02:00 CDT Notes: (Same as: Humulin R) Roll in palms of hands gently; Do not shake vigorously. "single patientuse only"(Restricted to patients requiring a dose > 60 units)WASTE: F/P - Black; E - Municipal Trash Bin Stable for 28 days at room temperatureExpires in days from Date Start Date: 02/22/17 Stop Date: 02/23/17 Status: DiscontinuedKeppra 750 mg, Route: IVPB, ONCE, Dosing Weight 50, kg, Start date: 02/21/17 22:42:00 CDT, Stop date: 02/21/17 22:42:00 CDT Start Date: 02/21/17 Stop Date: 02/21/17 Status: CompletedlevETIRAcetam 100 mg/mL oral solution 750 mg, 7.5 mL, Route: PO, Drug form: SOLN, [id number], Dosing Weight 50, kg, Start date: 02/22/17 6:00:00 CDT, Duration: 30 day, Stop date: 03/23/17 18:00: 00 CDT Notes: Same as: Keppra Start Date: 02/22/17 Stop Date: 02/23/17 Status: Discontinuedlevothyroxine 125 microgram, 1 tab, Route: PO, Drug form: TAB, [id number], Dosing Weight 50, kg, Start date: 02/22/17 6:30:00 CDT, Duration: 30 day, Stop date: 03/23/17 6:30:00 CDT Notes: Take 1 hour before or 2 hours after meal; Enteral feeds may interefere with the absorption ofthis medication. (Same as:Levothroid) Start Date: 02/22/17 Stop Date: 02/23/17 Status: DiscontinuedLovenox 40 mg, 0.4 mL, Route: SUB-Q, Drug form: INJ, [id number], Dosing Weight 50, kg, Start date: 02/22/17 6:00:00 CDT, Duration: 30 day, Stop date: 03/23/17 6:00:00 CDT Notes: (Same as: Lovenox) Start Date: 02/22/17 Stop Date: 02/23/17 Status: Discontinuedmagnesium oxide 800 mg, 2 tab, Route: PO, Drug form: TAB, PRN, Dosing Weight 50, kg, PRN Abnormal Lab Result, FOR ICU USE ONLY, Start date: 02/22/17 2:02:00 CDT, Duration: 30 day, Stop date: 03/24/17 2:01:00 CDT Notes: (Same as: Mag-Ox 400)Magnesium oxide [id number] elemental magnesiumDose= ____mg magnesium oxide (___mg elemental magnesium) Start Date: 02/22/17 Stop Date: 02/23/17 Status: Discontinuedmagnesium sulfate 2 gm, 50 mL, Route: IVPB, Drug form: INJ, PRN, Dosing Weight 50, kg, PRN Abnormal Lab Result, Start date: 02/22/17 2:02:00 CDT, Duration: 30 day, Stop date: 03/24/17 2:01:00 CDT, FOR ICU USE ONLY Notes: WASTE: F/P - Sink; E - Municipal Trash Bin Start Date: 02/22/17 Stop Date: 02/23/17 Status: Discontinuedmelatonin 10 mg, 2 tab, Route: PO, Drug form: TAB, Bedtime, Dosing Weight 50, kg, PRN Sleep, Start date: 02/22/17 21:57:00 CDT, Duration: 30 day, Stop date: 03/24/17 21:56:00 CDT Notes: (Same as: Melatonin) Start Date: 02/22/17 Stop Date: 02/23/17 Status: Discontinuedmetoprolol tartrate 50 mg, 1 tab, Route: PO, Drug form: TAB, Q12H, Dosing Weight 50, kg, Start date : 02/22/17 9:00:00 CDT, Duration: 30 day, Stop date: 03/23/17 21:00:00 CDT Notes: (Same as: Lopressor) Start Date: 02/22/17 Stop Date: 02/23/17 Status: Discontinuedmorphine Sulfate 4 mg, Route: IVP, ONCE, Dosing Weight 50, kg, Start date: 02/21/17 22:41:00 CDT , Stop date: 02/21/1722:41:00 CDT Start Date: 02/21/17 Stop Date: 02/21/17 Status: CompletedNorco 10/325 oral tablet 1 tab, Route: PO, Drug Form: TAB, Dosing Weight 50, kg, Q4H, PRN Pain Score 1-3 , Start date: 02/23/17 16:40:00 CDT, Duration: 30 day, Stop date: 03/25/17 16:39 :00 CDT Notes: (Same as: Honeydew 325/10) Start Date: 02/23/17 Stop Date: 02/23/17 Status: Discontinuedondansetron 4 mg, 2 mL, Route: IVP, Drug form: INJ, Q8H, Dosing Weight 50, kg, PRN Nausea & amp; Vomiting, Start date: 02/21/17 20:59:00 CDT, Duration: 30 day, Stop date: 03/23/17 20:58:00 CDT Notes: (Same as: Zofran) MEDICATION WASTE Product Size: 4 mgProduct Wasted: ___ mg Start Date: 02/21/17 Stop Date: 02/23/17 Status: Discontinuedpantoprazole 40 mg, 1 pkt, Route: PO, Drug form: GRAN/REC, [id number], Dosing Weight 50, kg, Start date: 02/22/17 6:00:00 CDT, Duration: 30 day, Stop date: 03/23/17 18:00: 00 CDT Notes: Same as: Protonix Mix in 5 mL apple juice or applesauce for oral & 10mL apple juice for NG tube Start Date: 02/22/17 Stop Date: 02/23/17 Status: Discontinuedpotassium chloride 20 mEq, 100 mL, Route: IVPB, Drug form: INJ, PRN, Dosing Weight 50, kg, PRN Abnormal Lab Result, Viacentral line, Start date: 02/22/17 2:02:00 CDT, Duration : 30 day, Stop date: 03/24/17 2:01:00 CDT, FOR ICU USE ONLY Notes: (Same as: KCL) Infuse no faster than 10 mEq/hr if given peripherally. Start Date: 02/22/17 Stop Date: 02/23/17 Status: Discontinuedpotassium chloride 10 mEq, 50 mL, Route: IVPB, Drug form: INJ, PRN, Dosing Weight 50, kg, PRN Abnormal Lab Result, Via peripheral line, Start date: 02/22/17 2:02:00 CDT, Duration: 30 day, Stop date: 03/24/17 2:01:00 CDT,FOR ICU USE ONLY Notes: (Same as: KCL) Infuse over 2 hours. Start Date: 02/22/17 Stop Date: 02/23/17 Status: Discontinuedpotassium chloride 20 mEq, 1 tab, Route: PO, Drug form: ERTAB, PRN, Dosing Weight 50, kg, PRN Abnormal Lab Result, Start date: 02/22/17 2:02:00 CDT, Duration: 30 day, Stop date: 03/24/17 2:01:00 CDT, FOR ICU USE ONLY Notes: (Same as: K-Dur 20)"Do Not Crush" With food and full glass of water Start Date: 02/22/17 Stop Date: 02/23/17 Status: Discontinuedpotassium chloride 20 mEq, 15 mL, Route: NJ, Drug form: LIQ, PRN, Dosing Weight 50, kg, PRN Abnormal Lab Result, Start date: 02/22/17 2:02:00 CDT, Duration: 30 day, Stop date: 03/24/17 2:01:00 CDT, FOR ICU USE ONLY Notes: (Same as: Potassium Chloride) Start Date: 02/22/17 Stop Date: 02/23/17 Status: Discontinuedpotassium phosphate + sodium chloride 0.9% INJ 250 mL 30 mmol, 10 mL, Route: IVPB, PRN, Dosing Weight 50, kg, PRN Abnormal Lab Result , Start date: 02/22/17 2:02:00 CDT, Duration: 30 day, Stop date: 03/24/17 2:01: 00 CDT, FOR ICU USE ONLY Notes: (Same as: K Phosphate.) 1 mMol phoshate has 1.47 mEq potassium Infuse over 4 hours Start Date: 02/22/17 Stop Date: 02/23/17 Status: Discontinuedpotassium phosphate + sodium chloride 0.9% INJ 250 mL 45 mmol, 15 mL, Route: IVPB, PRN, Dosing Weight 50, kg, PRN Abnormal Lab Result , Start date: 02/22/17 2:02:00 CDT, Duration: 30 day, Stop date: 03/24/17 2:01: 00 CDT, FOR ICU USE ONLY Notes: (Same as: K Phosphate.) 1 mMol phoshate has 1.47 mEq potassium Infuse over 4 hours Start Date: 02/22/17 Stop Date: 02/23/17 Status: Discontinuedpotassium phosphate + sodium chloride 0.9% INJ 250 mL 15 mmol, 5 mL, Route: IVPB, PRN, Dosing Weight 50, kg, PRN Abnormal Lab Result, Start date: :02:00 CDT, Duration: 30 day, Stop date: 03/24/17 2:01:00 CDT, FOR ICU USE ONLY Notes: (Same as: K Phosphate.) 1 mMol phoshate has 1.47 mEq potassium Infuse over 4 hours Start Date: 02/22/17 Stop Date: 02/23/17 Status: Discontinuedpotassium phosphate-sodium phosphate 250 mg-280 mg-160 mg oral powder for reconstitution 2 pkt, Route: PO, Drug Form: PDR/REC, Dosing Weight 50, kg, PRN, PRN Abnormal Lab Result, FOR ICU USE ONLY, Start date: 02/22/17 2:02:00 CDT, Duration: 30 day , Stop date: 03/24/17 2:01:00 CDT Notes: (Same as: Phos-NaK) Each 1.5 gm pkt has 250mg phosphorous. Mix w/2.5oz water and stir. Start Date: 02/22/17 Stop Date: 02/23/17 Status: DiscontinuedSaline Flush 0.9% 10 ml, Route: IVP, Drug Form: INJ, Dosing Weight 50, kg, PRN, PRN Line Flush, Start date: 02/21/17 20:59:00 CDT, Duration: 30 day, Stop date: 03/23/17 20:58: 00 CDT Notes: (Same as: BD Posiflush) Start Date: 02/21/17 Stop Date: 02/23/17 Status: DiscontinuedSaline Flush 0.9% 10 ml, Route: IVP, Drug Form: INJ, Dosing Weight 50, kg, Q12H, Start date: 02/21 21:00:00 CDT, Duration: 30 day, Stop date: 03/23/17 9:00:00 CDT Notes: (Same as: BD Posiflush) Start Date: 02/21/17 Stop Date: 02/23/17 Status: Discontinuedsenna 8.6 mg, 1 tab, Route: PO, Drug Form: TAB, Dosing Weight 50, kg, Q12H, Start date : 02/21/17 21:00:00 CDT, Duration: 30 day, Stop date: 03/23/17 9:00:00 CDT Notes: (Same as: Senokot) Start Date: 02/21/17 Stop Date: 02/23/17 Status: Discontinuedsodium phosphate + sodium chloride 0.9% INJ 250 mL 30 mmol, 10 mL, Route: IVPB, PRN, Dosing Weight 50, kg, PRN Abnormal Lab Result , Start date: 02/22/17 2:02:00 CDT, Duration: 30 day, Stop date: 03/24/17 2:01: 00 CDT, FOR ICU USE ONLY Start Date: 02/22/17 Stop Date: 02/23/17 Status: Discontinuedsodium phosphate + sodium chloride 0.9% INJ 250 mL 15 mmol, 5 mL, Route: IVPB, PRN, Dosing Weight 50, kg, PRN Abnormal Lab Result, Start date: 172:02:00 CDT, Duration: 30 day, Stop date: 03/24/17 2:01:00 CDT, FOR ICU USE ONLY Start Date: 02/22/17 Stop Date: 02/23/17 Status: Discontinuedsodium phosphate + sodium chloride 0.9% INJ 250 mL 45 mmol, 15 mL, Route: IVPB, PRN, Dosing Weight 50, kg, PRN Abnormal Lab Result , Start date: 02/22/17 2:02:00 CDT, Duration: 30 day, Stop date: 03/24/17 2:01: 00 CDT, FOR ICU USE ONLY Start Date: 02/22/17 Stop Date: 02/23/17 Status: DiscontinuedTessalon Perles 200 mg, 2 cap, Route: PO, Drug form: CAP, TID, Dosing Weight 50, kg, PRN Cough, Start date: 174:30:00 CDT, Duration: 30 day, Stop date: 03/24/17 4:29:00 CDT Notes: (Same As: Tessalon Perles)"Do Not Crush" Start Date: 02/22/17 Stop Date: 02/23/17 Status: DiscontinuedTylenol 650 mg, 2 tab, Route: PO, Drug form: TAB, Q6H, Dosing Weight 50, kg, PRN Pain 1- 3/Temp > 100.4 F, Start date: 02/22/17 21:58:00 CDT, Duration: 30 day, Stop date : 03/24/17 21:57:00 CDT Notes: Do not exceed 4 gm/day. (Same as: Tylenol) Start Date: 02/22/17 Stop Date: 02/23/17 Status: Discontinuedvancomycin 1,000 mg, Route: IVPB, Drug form: INJ, [id number], Dosing Weight 50, kg, Start date : 02/22/17 0:00:00 CDT, Duration: 3 day, Stop date: 02/24/17 16:00:00 CDT, ABX Indication: MANAGER POLICY Infection/Epidural Abcess Notes: TIME CRITICAL MEDICATION(Same As: Vancocin)Infusion rate< 1000 mg: infuse over 1 [id number] - 1500 mg: infuse over 1.5 [id number] - 2000 mg: infuse over 2 hours> 2001 mg: infuse over 2.5 hours MEDICATION WASTE Product Size: 1000 mgProduct Wasted: 0 mg Start Date: 02/22/17 Stop Date: 02/22/17 Status: Discontinuedvancomycin 1,000 mg, Route: IVPB, Drug form: INJ, [id number], Dosing Weight 50, kg, Start date : 02/22/17 20:00:00 CDT, Duration: 7 day, Stop date: 03/01/17 8:00:00 CDT, ABX Indication: MANAGER POLICY Infection/Epidural Abcess Notes: TIME CRITICAL MEDICATION(Same As: Vancocin)Infusion rate< 1000 mg: infuse over 1 [id number] - 1500 mg: infuse over 1.5 [id number] - 2000 mg: infuse over 2 hours> 2001 mg: infuse over 2.5 hours MEDICATION WASTE Product Size: 1000 mgProduct Wasted: ___ mg Start Date: 02/22/17 Stop Date: 02/23/17 Status: Discontinued Results ELECTROLYTES Most recent to oldest 1 2 3 [Reference Range]: Sodium Lvl [135-145 mEq/L] 135 mEq/L 134 mEq/L 131 mEq/L (02/23/17 6:19 AM) *LOW* *LOW* (02/22/17 4:41 AM) (02/21/17 6:48 PM) Potassium Lvl [3.5-5.1 3.5 mEq/L 4.7 mEq/L 4.9 mEq/L mEq/L] (02/23/17 6:19 AM) (02/22/17 4:41 AM) (02/21/17 6:48 PM) Chloride Lvl [95-109 mEq/L] 100 mEq/L 97 mEq/L 98 mEq/L (02/23/17 6:19 AM) (02/22/17 4:41 AM) (02/21/17 6:48 PM) CO2 [24-32 mEq/L] 24 mEq/L 28 mEq/L 28 mEq/L (02/23/17 6:19 AM) (02/22/17 4:41 AM) (02/21/17 6:48 PM) AGAP [10.0-20.0 mEq/L] 14.5 mEq/L 13.7 mEq/L 9.9 mEq/L (02/23/17 6:19 AM) (02/22/17 4:41 AM) *LOW* (02/21/17 6:48 PM) CHEM PANEL Most recent to oldest 1 2 3 [Reference Range]: Creatinine Lvl [0.50-1.40 0.39 mg/dL 0.39 mg/dL 0.43 mg/dL mg/dL] *LOW* *LOW* *LOW* (02/23/17 6:19 AM) (02/22/17 4:41 AM) (02/21/17 6:48 PM) eGFR 120 mL/min/1.73m2 1 121 mL/min/1.73m2 2 116 mL/min/1.73m2 3 *NA* *NA* *NA* (02/23/17 6:19 AM) (02/22/17 4:41 AM) (02/21/17 6:48 PM) BUN [7-22 mg/dL] 26 mg/dL 23 mg/dL 24 mg/dL *HI* *HI* *HI* (02/23/17 6:19 AM) (02/22/17 4:41 AM) (02/21/17 6:48 PM) B/C Ratio [6-25] 56 *HI* (02/21/17 6:48 PM) Glucose Lvl [70-99 mg/dL] 190 mg/dL 81 mg/dL 142 mg/dL *HI* (02/22/17 4:41 AM) *HI* (02/23/17 6:19 AM) (02/21/17 6:48 PM) Total Protein [6.4-8.4 6.7 g/dL g/dL] (02/21/17 6:48 PM) Albumin Lvl [3.5-5.0 g/dL] 2.5 g/dL *LOW* (02/21/17 6:48 PM) Globulin [2.7-4.2 g/dL] 4.2 g/dL (02/21/17 6:48 PM) A/G Ratio [0.7-1.6] 0.6 *LOW* (02/21/17 6:48 PM) Calcium Lvl [8.5-10.5 8.3 mg/dL 8.6 mg/dL 8.5 mg/dL mg/dL] *LOW* (02/22/17 4:41 AM) (02/21/17 6:48 PM) (02/23/17 6:19 AM) Phosphorus [2.5-4.5 mg/dL] 2.2 mg/dL 2.9 mg/dL *LOW* (02/22/17 4:41 AM) (02/23/17 6:19 AM) Magnesium Lvl [1.8-2.4 1.9 mg/dL 2.1 mg/dL mg/dL] (02/23/17 6:19 AM) (02/22/17 4:41 AM) ALT [0-65 unit/L] 38 unit/L (02/21/17 6:48 PM) AST [0-37 unit/L] 18 unit/L (02/21/17 6:48 PM) Alk Phos [39-136 unit/L] 97 unit/L (02/21/17 6:48 PM) Bili Total [0.2-1.3 mg/dL] 0.4 mg/dL (02/21/17 6:48 PM) Lactic Acid Lvl [0.5-2.2 1.6 mMol/L mMol/L] (02/21/17 6:48 PM) 1Result Comment: The eGFR is calculated using the CKD-EPI formula. In most young , healthy individualsthe eGFR will be >90 mL/min/1.73m2. The eGFR declines with age. An eGFR of 60-89 may be normal in some populations, particularly the elderly, for whom the CKD-EPI formula has not been extensively validated. Use of the eGFR is not recommended in the following populations: Individuals with unstable creatinine concentrations, including patients and those with serious co-morbid conditions. Patients with extremes in muscle mass or diet. The data above are obtained from the National Kid[employer] Disease Education Program ( [employer]) which additionally recommends that when the eGFR is used in patients with extremes of body mass index for purposesof drug dosing, the eGFR should be multiplied by the estimated BMI.2Result Comment: The eGFR is calculated using the CKD-EPI formula. In most young, healthy individualsthe eGFR will be >90 mL/ min/1.73m2. The eGFR declines with age. An eGFR of 60-89 may be normal in some populations, particularly the elderly, for whom the CKD-EPI formula has not been extensively validated. Use of the eGFR is not recommended in the following populations: Individuals with unstable creatinine concentrations, including patients and those with serious co-morbid conditions. Patients with extremes in muscle mass or diet. The data above are obtained from the National Kid[employer] Disease Education Program ( NK[employer]) which additionally recommends that when the eGFR is used in patients with extremes of body mass index for purposesof drug dosing, the eGFR should be multiplied by the estimated BMI.3Result Comment: The eGFR is calculated using the CKD-EPI formula. In most young, healthy individualsthe eGFR will be >90 mL/ min/1.73m2. The eGFR declines with age. An eGFR of 60-89 may be normal in some populations, particularly the elderly, for whom the CKD-EPI formula has not been extensively validated. Use of the eGFR is not recommended in the following populations: Individuals with unstable creatinine concentrations, including patients and those with serious co-morbid conditions. Patients with extremes in muscle mass or diet. The data above are obtained from the National Kid[employer] Disease Education Program ( NKDEP) which additionally recommends that when the eGFR is used in patients with extremes of body mass index for purposesof drug dosing, the eGFR should be multiplied by the estimated BMI.PARATHYROID PROFILE Most recent to oldest [Reference Range]: 1 2 3 Ca Ion WB [1.05-1.25 mMol/L] 1.15 mMol/L 1.29 mMol/L (02/23/17 6:19 AM) *HI* (02/22/17 4:41 AM) Ca Norm WB [1.05-1.25 mMol/L] 1.14 mMol/L 1.26 mMol/L (02/23/17 6:19 AM) *HI* (02/22/17 4:41 AM) URINE AND STOOL Most recent to oldest [Reference Range]: 1 2 3 UA Turbidity [Clear] Slight Slight *ABN* *ABN* (02/23/17 10:00 AM) (02/22/17 4:41 AM) UA Color [Yellow] Yellow Yellow *NA* *NA* (02/23/17 10:00 AM) (02/22/17 4:41 AM) UA pH [5.0-8.0] 6.5 7.0 (02/23/17 10:00 AM) (02/22/17 4:41 AM) UA Spec Grav [<=1.030] 1.023 1.013 (02/23/17 10:00 AM) (02/22/17 4:41 AM) UA Glucose [Negative mg/dL] Negative mg/dL Negative mg/dL *NA* *NA* (02/23/17 10:00 AM) (02/22/17 4:41 AM) UA Blood [Negative] Negative Negative (02/23/17 10:00 AM) (02/22/17 4:41 AM) UA Ketones [Negative mg/dL] Negative mg/dL Negative mg/dL *NA* *NA* (02/23/17 10:00 AM) (02/22/17 4:41 AM) UA Protein [Negative mg/dL] 30 mg/dL Negative mg/dL *ABN* (02/22/17 4:41 AM) (02/23/17 10:00 AM) UA Urobilinogen [0.1-1.0 mg/dL] <=1.0 mg/dL <=1.0 mg/dL *NA* *NA* (02/23/17 10:00 AM) (02/22/17 4:41 AM) UA Bili [Negative] Negative Negative *NA* *NA* (02/23/17 10:00 AM) (02/22/17 4:41 AM) UA Leuk Est [Negative] Negative Large (02/23/17 10:00 AM) *ABN* (02/22/17 4:41 AM) UA Nitrite [Negative] Negative Negative (02/23/17 10:00 AM) (02/22/17 4:41 AM) UA WBC [0-5 /HPF] 8 /HPF 28 /HPF *HI* *HI* (02/23/17 10:00 AM) (02/22/17 4:41 AM) UA RBC [0-2 /HPF] 2 /HPF 2 /HPF (02/23/17 10:00 AM) (02/22/17 4:41 AM) UA Bacteria [None Seen /HPF] Occasional /HPF Occasional /HPF *NA* *NA* (02/23/17 10:00 AM) (02/22/17 4:41 AM) UA Sq Epi None Seen *NA* (02/23/17 10:00 AM) UA Sq Epi [Few /LPF] Few /LPF *NA* (02/22/17 4:41 AM) UA Hyal Cast [0-2 /LPF] 3 /LPF *HI* (02/23/17 10:00 AM) UA Uric Ac Kaylynn [None Seen /HPF] Few /HPF *NA* (02/23/17 10:00 AM) UA Amorph Kaylynn [None Seen /HPF] Occasional /HPF *NA* (02/22/17 4:41 AM) UA Mucus [None Seen /LPF] Many /LPF Few /LPF *ABN* *NA* (02/23/17 10:00 AM) (02/22/17 4:41 AM) UA Gran Cast 1 /LPF 3 /LPF *NA* *NA* (02/23/17 10:00 AM) (02/22/17 4:41 AM) UA [place] Yeast [None Seen /HPF] Few /HPF *ABN* (02/23/17 10:00 AM) Micro? Performed *NA* (02/22/17 4:41 AM) BODY FLUIDS Most recent to oldest [Reference Range]: 1 2 3 Glucose CSF [45-80 mg/dL] 37 mg/dL *LOW* (02/21/17 11:33 PM) Protein CSF [15-45 mg/dL] 237 mg/dL 1 *HI* (02/21/17 11:33 PM) Lactic Acid CSF [0.6-2.2 mMol/L] 6.4 mMol/L *HI* (02/21/17 11:33 PM) Tube Num CSF 1 *NA* (02/21/17 11:33 PM) Color CSF [Colorless] Xanthoch *ABN* (02/21/17 11:33 PM) Clarity CSF [Clear] Slight *ABN* (02/21/17 11:33 PM) Supernat CSF [Colorless] Xanthoch 2 *ABN* (02/21/17 11:33 PM) RBC CSF [0-0 /mm3] 1170 /mm3 *HI* (02/21/17 11:33 PM) WBC CSF [0-5 /mm3] 36 /mm3 *HI* (02/21/17 11:33 PM) Segs CSF [0-6 %] 91 % *HI* (02/21/17 11:33 PM) Lymph CSF [40-80 %] 5 % *LOW* (02/21/17 11:33 PM) Monocyte CSF [15-45 %] 4 % *LOW* (02/21/17 11:33 PM) 1Result Comment: "Significant Findings called to Carmen Prescott @02/22/2017 00:16__ by Jw__.Read Back OK."2Result Comment: "Significant Findings called to Jules BASILIO _at 02/22/2017 01:05__by CHRIS___.Read Back OK."IMMUNOLOGY Most recent to oldest [Reference Range]: 1 2 3 VDRL Scr CSF [Non Reactive] Non Reactive (02/21/17 11:32 PM) HEMATOLOGY Most recent to oldest 1 2 3 [Reference Range]: WBC [3.7-10.4 K/CMM] 5.2 K/CMM 4.9 K/CMM 6.1 K/CMM (02/23/17 6:19 AM) (02/22/17 4:41 AM) (02/21/17 6:48 PM) RBC [4.20-5.40 M/CMM] 3.76 M/CMM 3.22 M/CMM 3.44 M/CMM *LOW* *LOW* *LOW* (02/23/17 6:19 AM) (02/22/17 4:41 AM) (02/21/17 6:48 PM) Hgb [12.0-16.0 g/dL] 10.6 g/dL 9.4 g/dL 9.6 g/dL *LOW* *LOW* *LOW* (02/23/17 6:19 AM) (02/22/17 4:41 AM) (02/21/17 6:48 PM) Hct [36.0-48.0 %] 32.9 % 28.2 % 29.7 % *LOW* *LOW* *LOW* (02/23/17 6:19 AM) (02/22/17 4:41 AM) (02/21/17 6:48 PM) MCV [80.0-98.0 fL] 87.6 fL 87.6 fL 86.5 fL (02/23/17 6:19 AM) (02/22/17 4:41 AM) (02/21/17 6:48 PM) MCH [27.0-31.0 pg] 28.2 pg 29.1 pg 28.0 pg (02/23/17 6:19 AM) (02/22/17 4:41 AM) (02/21/17 6:48 PM) MCHC [32.0-36.0 g/dL] 32.2 g/dL 33.3 g/dL 32.4 g/dL (02/23/17 6:19 AM) (02/22/17 4:41 AM) (02/21/17 6:48 PM) RDW [11.5-14.5 %] 18.0 % 17.5 % 17.4 % *HI* *HI* *HI* (02/23/17 6:19 AM) (02/22/17 4:41 AM) (02/21/17 6:48 PM) Platelet [133-450 K/CMM] 306 K/CMM 240 K/CMM 267 K/CMM (02/23/17 6:19 AM) (02/22/17 4:41 AM) (02/21/17 6:48 PM) MPV [7.4-10.4 fL] 8.7 fL 8.3 fL 8.4 fL (02/23/17 6:19 AM) (02/22/17 4:41 AM) (02/21/17 6:48 PM) Segs [45.0-75.0 %] 62.0 % 53.2 % 65.6 % (02/23/17 6:19 AM) (02/22/17 4:41 AM) (02/21/17 6:48 PM) Lymphocytes [20.0-40.0 %] 31.9 % 40.0 % 31.2 % (02/23/17 6:19 AM) (02/22/17 4:41 AM) (02/21/17 6:48 PM) Monocytes [2.0-12.0 %] 5.0 % 6.5 % 3.0 % (02/23/17 6:19 AM) (02/22/17 4:41 AM) (02/21/17 6:48 PM) Eosinophils [0.0-4.0 %] 0.9 % 0.2 % 0.1 % (02/23/17 6:19 AM) (02/22/17 4:41 AM) (02/21/17 6:48 PM) Basophils [0.0-1.0 %] 0.2 % 0.1 % 0.1 % (02/23/17 6:19 AM) (02/22/17 4:41 AM) (02/21/17 6:48 PM) Segs-Bands # [1.5-8.1 K/CMM] 3.2 K/CMM 2.6 K/CMM 4.0 K/CMM (02/23/17 6:19 AM) (02/22/17 4:41 AM) (02/21/17 6:48 PM) Lymphocytes # [1.0-5.5 1.6 K/CMM 2.0 K/CMM 1.9 K/CMM K/CMM] (02/23/17 6:19 AM) (02/22/17 4:41 AM) (02/21/17 6:48 PM) Monocytes # [0.0-0.8 K/CMM] 0.3 K/CMM 0.3 K/CMM 0.2 K/CMM (02/23/17 6:19 AM) (02/22/17 4:41 AM) (02/21/17 6:48 PM) BACTERIAL - SEROLOGY Most recent to oldest [Reference Range]: 1 2 3 MRSA by PCR Negative (02/22/17 12:05 PM) Immunizations Given and Recorded Vaccine Date Status Refusal Reason tuberculin purified protein derivative 04/25/16 Given Not Given Vaccine Date Status Refusal Reason pneumococcal 23-valent vaccine 01/22/16 Not Given Parent Or Guardian Refuses Procedures Procedure Date Related Diagnosis Body Site 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 the last one was more than 12 years ago Social History Social History Type Response Substance Abuse Use: None. Sexual Sexually active: No. Exercise 1 Employment/School Status: Employed. 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 Highest education level: High school. Operates hazardous equipment: No. Alcohol Never Smoking Status Former smoker; Type: Cigarettes; Tobacco use per day: 1; Started at age: 17.0; Stopped at age: 51; Previous treatment: None; Ready to change: No; Concerns about tobacco use in household: No; Exposure to Tobacco Smoke smokes; Cigarette Smoking Last 365 Days Yes; Reg Smoking Cessation Counseling No 1denies Exercise Assessment and Plan Extracted from: Title: UT- ID Initial consult Author: Rogers Garcia MD Date: 02/23/17 Impression and Plan 52yo female with HTN, h/o subarachnoid hemorrhage 2/2 aneuryms rupture, s/p clipping of EDEN and LMCA aneurysms, completed in hospital rehabilitation followed by cognitive, memory and mood impairments, s/p PEG tube placement for feeding. Recent admission from - 02/15/17 treated empirically for acute bacterial meningitis with Vancomycin and Cefepime for 14 days last dose 02/07/17. 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 Readmitted on 02/21 for recurrence of fever 1. Fever: Likely secondary to complicated sinusitis as per CT head 02/22 and , questionable persistent sinus defect as per worsening pneumocephalus. CSF studies during this admission do not support a cute bacterial meningitis, she has no meningeal signs at this time and improved cell count and negative gram stain and culture with no prior antibiotic dose. As per CT report 02/23 large amount of air an d hemorrhagic fluid sourrunding craniotomy bed, CSF reporting higher RBC count and xanthochromic fluid, also to consider possible explanation for fever. Recommendations: Continue Vancomycin 1g IV q12h, follow up trough level, target of 15- 20 and adjust accordingly Change cefepime to 1g IV q8h, adjusted for weight and to cover possible complicated sinusitis Start Flagyl 500mg IV q8h Consider repeat MRI of the brain w/ contrast if feassible for better evaluation of frontal hygromas We will follow up Patient was discussed during rounds with ID attending Dr. Garcia. Grabiel Cazares MD ID Fellow # [id number] On 02/24/17 I saw and evaluated this patient with the ID fellow, Dr. Christina, with whose note and plan I concur. Agree with ABX to treat probable parameningeal infection. Dr. Garcia
--- OUTSIDE RECORDS SUMMARY | 2019-01-05 19:35 | XMS REPORT | Summary of Care ---
:1965 Author Organization [facility] Address [address] [place] [id number]- Encounter HQ Ionntr_johanna(FIN) [id number] Date(s): 07/18/17 - 07/18/[address] Professional Services provided by [facility] [place] [address]- Discharge Disposition: Home or Self Care Attending Physician: Chan Delgado DO Vital Signs Most recent to oldest 1 2 3 [Reference Range]: Height 157.48 cm (07/18/17 6:55 PM) Temperature Oral [96.4-99.1 97.4 DegF DegF] (07/18/17 6:55 PM) Blood Pressure [90-140/60-90 120/67 mmHg 114/63 mmHg 112/74 mmHg mmHg] (07/18/17 9:00 PM) (07/18/17 7:30 PM) (07/18/17 6:55 PM) Respiratory Rate [14-20 18 BRMIN 18 BRMIN 18 BRMIN BRMIN] (07/18/17 9:00 PM) (07/18/17 7:30 PM) (07/18/17 6:55 PM) Peripheral Pulse Rate 89 bpm [60-100 bpm] (07/18/17 6:55 PM) Weight 51.364 kg (07/18/17 6:55 PM) Body Mass Index 20.71 m2 (07/18/17 6:55 PM) Problem List Condition Effective Dates Status Health Status Informant Acute respiratory failure(Confirmed) Active Anemia(Confirmed) Active Aneurysm(Confirmed)1 Resolved ICH (intracerebral Active hemorrhage)(Confirmed) Chronic anemia(Confirmed) Active Chronic back pain(Confirmed) Resolved 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, cortical(Confirmed) Diarrhea(Confirmed) Active Dysphagia(Confirmed) Active Fever(Confirmed) Active History of subarachnoid Resolved hemorrhage(Confirmed) H/O tracheostomy(Confirmed) Active Hemiparesis affecting right side as Active late effect of stroke(Confirmed) HTN - Hypertension(Confirmed) Resolved Hydrocephalus(Confirmed) Active Hypercapnia(Confirmed) Active Hypothyroidism(Confirmed) Active Hypoxia(Confirmed) Active Meningoencephalitis(Confirmed) Active Metabolic encephalopathy(Confirmed) Active MRSA(Confirmed)2, 3, 4, 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 PEG - Percutaneous endoscopic Active gastrostomy catheter(Confirmed) Pneumocephalus(Confirmed) Active Pneumonia(Confirmed) Active MDR Pseudomonas(Confirmed)6, 7, 8 05/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 Allergies, Adverse Reactions, Alerts Substance Reaction Severity Status promethazine Active Phenergan Phenergan Active Medications No Known Medications Results IMMUNOLOGY Most recent to oldest [Reference Range]: 1 CDC HIV 4th GEN [Negative] Negative *NA* (07/18/17 8:50 PM) Immunizations Given and Recorded Vaccine Date Status Refusal Reason tuberculin purified protein derivative 04/25/16 Given Not Given Vaccine Date Status Refusal Reason pneumococcal 23-valent vaccine 01/22/16 Not Given Parent Or Guardian Refuses Procedures Procedure Date Related Diagnosis Body Site Craniotomy PEG - Percutaneous endoscopic gastrostomy 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 the last one was more than 12 years ago Social History Social History Type Response Substance Abuse Use: None. Sexual Sexually active: No. Exercise 1 Employment/School Status: Employed. 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 Highest education level: High school. Operates hazardous equipment: No. Alcohol Never Smoking Status Former smoker; Type: Cigarettes; Previous treatment: None; Ready to change: No; Concerns about tobacco use in household: No; Exposure to Tobacco Smoke smokes; Cigarette Smoking Last 365 Days Yes; Reg Smoking Cessation Counseling No; Tobacco use per day: 1; Started at age: 17.0; Stopped at age: 51; 1denies Exercise Assessment and Plan No data available for this section
--- OUTSIDE RECORDS SUMMARY | 2019-01-05 19:35 | XMS REPORT | Summary of Care ---
:1965 Author Organization [facility] Address [address] [place] [id number] Encounter HQ Juanr_johanna(FIN) [id number] Date(s): 01/25/17 - 02/15/17 [facility] [address] [place] [address] Professional Services provided by [facility] [place] [address]- Discharge Disposition: Home or Self Care Attending Physician: Misa Hallman DO Admitting Physician: Adrienne Bowman MD Referring Physician: Varinder Singer MD Vital Signs Most recent to oldest 1 2 3 [Reference Range]: Height 157.48 cm 157.48 cm (01/26/17 2:35 PM) (01/25/17 4:21 PM) Temperature Oral [96.4-99.1 97.3 DegF 97.7 DegF 98.2 DegF DegF] (02/15/17 7:05 PM) (02/15/17 3:30 PM) (02/15/17 11:35 AM) Blood Pressure [90-140/60-90 112/70 mmHg 120/71 mmHg 118/61 mmHg mmHg] (02/15/17 7:05 PM) (02/15/17 3:30 PM) (02/15/17 11:35 AM) Respiratory Rate [14-20 BRMIN] 17 BRMIN 18 BRMIN 18 BRMIN (02/15/17 7:05 PM) (02/15/17 3:30 PM) (02/15/17 11:35 AM) Peripheral Pulse Rate [60-100 97 bpm 107 bpm 97 bpm bpm] (02/15/17 7:05 PM) *HI* (02/15/17 11:35 AM) (02/15/17 3:30 PM) Weight 54.7 kg 54.7 kg 51.364 kg (01/26/17 2:35 PM) (01/25/17 4:21 PM) (01/25/17 7:13 AM) Body Mass Index 22.06 m2 (01/25/17 4:21 PM) Problem List Condition Effective Dates Status [...] Reaction Severity Status Phenergan Phenergan Active Medications acetaminophen 650 mg, 2 tab, Route: PO, Drug form: TAB, Q4H, Dosing Weight 51.364, kg, PRN Pain 1-3/Temp > 100.4 F, Start date: 01/25/17 13:51:00 CDT, Duration: 30 day, Stop date: 02/24/17 13:50:00 CDT Notes: Do not exceed 4 gm/day. (Same as: Tylenol) Start Date: 01/25/17 Stop Date: 02/15/17 Status: Discontinuedacetaminophen 650 mg, 2 tab, Route: PO, Drug form: TAB, ONCE, Dosing Weight 51.364, kg, Priority: STAT, Start date: 01/25/17 9:21:00 CDT, Stop date: 01/25/17 9:21:00 CDT Notes: Do not exceed 4 gm/day. (Same as: Tylenol) Start Date: 01/25/17 Stop Date: 01/25/17 Status: Completedacetaminophen (ANES) Route: IV, Drug form: INJ, ONCE, Stop date: 02/09/17 10:50:00 CDT Start Date: 02/09/17 Stop Date: 02/09/17 Status: Completedacetaminophen (ANES) Route: IV, Drug form: INJ, ONCE, Stop date: 01/30/17 9:47:00 CDT Start Date: 01/30/17 Stop Date: 01/30/17 Status: Completedacyclovir + sodium chloride 0.9% INJ 100 mL 500 mg, Route: IVPB, ONCE, Dosing Weight 51.364, kg, Priority: STAT, Start date : 01/25/17 11:58:00 CDT, Stop date: 01/25/17 11:58:00 CDT, HSV encephalitis or immunocompromised patients Notes: (Same as: Zovirax) MEDICATION WASTE Product Size: 500 mgProduct Wasted: ___ mg Start Date: 01/25/17 Stop Date: 01/25/17 Status: Completedacyclovir + sodium chloride 0.9% INJ 100 mL 500 mg, Route: IVPB, ABXQ8H, Dosing Weight 51.364, kg, Start date: 01/25/17 15: 00:00 CDT, Duration: 30 day, Stop date: 02/24/17 7:00:00 CDT, CrCl > 50 mL / min Notes: (Same as: Zovirax) MEDICATION WASTE Product Size: 500 mgProduct Wasted: _0__ mg Start Date: 01/25/17 Stop Date: 01/27/17 Status: Discontinuedamantadine 100 mg, 10 mL, Route: PEG, Drug form: SYRP, BID-04-17, Dosing Weight 51.364, kg , Start date: 01/26/17 8:00:00 CDT, Duration: 30 day, Stop date: 02/24/17 13:00: 00 CDT Notes: (Same as: Symmetrel) Start Date: 01/26/17 Stop Date: 02/15/17 Status: Discontinuedamantadine 100 mg oral tablet 100 mg=1 tab, PEG, BID-04-17, X 30 day, # 60 tab, 4 Refill(s), Pharmacy: [id number] Start Date: 02/11/17 Stop Date: 07/11/17 Status: Suspendedamantadine 50 mg/5 mL oral syrup 100 mg=10 mL, PEG, BID-04-17, 0 Refill(s) Start Date: 02/15/17 Status: Orderedampicillin 2 gm, Route: IVPB, Drug form: PDR/INJ, ABXQ4H, Dosing Weight 51.364, kg, Start date: 01/25/17 15:00:00 CDT, Duration: 30 day, Stop date: 02/24/17 11:00:00 CDT Notes: (Same as: Trisha) MEDICATION WASTE Product Size: 2000 mgProduct Wasted: _0__ mg Start Date: 01/25/17 Stop Date: 01/27/17 Status: DiscontinuedANES flumazenil 0.2 mg, Route: IVP, PRN, Dosing Weight 54.7, kg, PRN Benzodiazepine Reversal, Initial dose, Start date: 01/30/17 9:35:00 CDT, Duration: 30 day, Stop date: 9:34:00 CDT Start Date: 01/30/17 Stop Date: 01/30/17 Status: DiscontinuedANES flumazenil 0.2 mg, Route: IVP, PRN, Dosing Weight 54.7, kg, PRN Benzodiazepine Reversal, Initial dose, Start date: 02/09/17 10:58:00 CDT, Duration: 30 day, Stop date: 10:57:00 CDT Start Date: 02/09/17 Stop Date: 02/09/17 Status: DiscontinuedANES hydrALAZINE 10 mg, Route: IVP, Q20Min, Dosing Weight 54.7, kg, PRN Elevated BP, Start date: 01/30/17 9:35:00 CDT, Duration: 2 doses or times, Stop date: Limited # of times Start Date: 01/30/17 Stop Date: 01/30/17 Status: DiscontinuedANES HYDROmorphone 0.5 mg, Route: IVP, Q5Min, Dosing Weight 54.7, kg, PRN Pain Score 7-10, Start date: 01/30/17 9:35:00CDT, Duration: 4 doses or times, Stop date: Limited # of times Start Date: 01/30/17 Stop Date: 01/30/17 Status: DiscontinuedANES HYDROmorphone 0.5 mg, Route: IVP, Q5Min, Dosing Weight 54.7, kg, PRN Pain Score 7-10, Start date: 02/09/17 10:58:00 CDT, Duration: 4 doses or times, Stop date: Limited # of times Start Date: 02/09/17 Stop Date: 02/09/17 Status: DiscontinuedANES labetalol 10 mg, Route: IVP, Q5Min, Dosing Weight 54.7, kg, PRN Elevated BP, Start date: 01/30/17 9:35:00 CDT,Duration: 5 doses or times, Stop date: Limited # of times Start Date: 01/30/17 Stop Date: 01/30/17 Status: DiscontinuedANES naloxone 0.4 mg, Route: IVP, Q2MIN, Dosing Weight 54.7, kg, PRN Narcotic Reversal, Start date: 01/30/17 9:35:00 CDT, Duration: 8 doses or times, Stop date: Limited # of times Start Date: 01/30/17 Stop Date: 01/30/17 Status: DiscontinuedANES naloxone 0.4 mg, Route: IVP, Q2MIN, Dosing Weight 54.7, kg, PRN Narcotic Reversal, Start date: 02/09/17 10:58:00 CDT, Duration: 8 doses or times, Stop date: Limited # of times Start Date: 02/09/17 Stop Date: 02/09/17 Status: DiscontinuedANES ondansetron 4 mg, Route: IVP, ONCE, Dosing Weight 54.7, kg, PRN Nausea & Vomiting, Start date: 01/30/17 9:35:00 CDT Start Date: 01/30/17 Stop Date: 01/30/17 Status: DiscontinuedANES ondansetron 4 mg, Route: IVP, ONCE, Dosing Weight 54.7, kg, PRN Nausea & Vomiting, Start date: 02/09/17 10:58:00 CDT Start Date: 02/09/17 Stop Date: 02/09/17 Status: DiscontinuedANES oxyCODONE 5 mg, Route: PEG, Drug form: TAB, Q4H, Dosing Weight 54.7, kg, PRN Pain Score 4- 6, Start date: 01/30/17 9:35:00 CDT, Duration: 30 day, Stop date: 03/01/17 9:34: 00 CDT Start Date: 01/30/17 Stop Date: 01/30/17 Status: Discontinuedatorvastatin 40 mg, 1 tab, Route: PO, Drug form: TAB, Bedtime, Dosing Weight 51.364, kg, Start date: 01/25/17 21:00:00 CDT, Duration: 30 day, Stop date: 02/23/17 21:00: 00 CDT Notes: (Same as: Lipitor) Start Date: 01/25/17 Stop Date: 02/15/17 Status: Discontinuedatorvastatin 40 mg oral tablet 40 mg=1 tab, PO, Bedtime, # 30 tab, 0 Refill(s), Pharmacy: [id number] Start Date: 02/11/17 Status: Suspendedatorvastatin 40 mg oral tablet 40 mg=1 tab, PO, Bedtime, 0 Refill(s) Start Date: 02/15/17 Status: OrderedAugmentin 875 mg oral tablet 1 tab, PEG, [id number], 0 Refill(s) Start Date: 02/15/17 Status: OrderedAugmentin 875 mg oral tablet 1 tab, PEG, [id number], X 9 day, # 18 tab, 0 Refill(s), Pharmacy: [id number] Start Date: 02/11/17 Stop Date: 02/20/17 Status: SuspendedAugmentin 875 mg oral tablet 1 tab, Route: PEG, Drug Form: TAB, Dosing Weight 54.7, kg, [id number], Start date: 02/10/17 13:00:00 CDT, Duration: 10 day, Stop date: 02/20/17 1:00:00 CDT Notes: With food.(Same as: Augmentin 875) Start Date: 02/10/17 Stop Date: 02/15/17 Status: Discontinuedcalcium carbonate 500 mg (200 mg elemental calcium) oral tablet 500 mg, 1 tab, Route: PO, Drug form: CHEWTAB, PRN, Dosing Weight 54.7, kg, PRN Abnormal Lab Result, FOR ICU USE ONLY, Start date: 02/06/17 1:54:00 CDT, Duration: 30 day, Stop date: 03/08/17 1:53:00 CDT Notes: (Same As: Tums)Calcium Carbonate 500 sc=937 mg elemental calcium Dose=_ mg calcium carbonate ( mg elemental calcium) Start Date: 02/06/17 Stop Date: 02/08/17 Status: Discontinuedcalcium carbonate 500 mg (200 mg elemental calcium) oral tablet 1,000 mg, 2 tab, Route: PO, Drug form: CHEWTAB, PRN, Dosing Weight 54.7, kg, PRN Abnormal Lab Result, FOR ICU USE ONLY, Start date: 02/06/17 1:54:00 CDT, Duration: 30 day, Stop date: 03/08/17 1:53:00 CDT Notes: (Same As: Tums)Calcium Carbonate 500 en=969 mg elemental calcium Dose=_ mg calcium carbonate ( mg elemental calcium) Start Date: 02/06/17 Stop Date: 02/08/17 Status: Discontinuedcalcium carbonate 500 mg (200 mg elemental calcium) oral tablet 1,000 mg, 2 tab, Route: PO, Drug form: CHEWTAB, PRN, Dosing Weight 54.7, kg, PRN Abnormal Lab Result, FOR ICU USE ONLY, Start date: 01/30/17 15:37:00 CDT, Duration: 30 day, Stop date: 03/01/17 15:36:00CDT Notes: (Same As: Clotildes)Calcium Carbonate 500 rh=693 mg elemental calcium Dose=_ mg calcium carbonate ( mg elemental calcium) Start Date: 01/30/17 Stop Date: 02/02/17 Status: Discontinuedcalcium carbonate 500 mg (200 mg elemental calcium) oral tablet 500 mg, 1 tab, Route: PO, Drug form: CHEWTAB, PRN, Dosing Weight 54.7, kg, PRN Abnormal Lab Result, FOR ICU USE ONLY, Start date: 01/30/17 15:37:00 CDT, Duration: 30 day, Stop date: 03/01/17 15:36:00 CDT Notes: (Same As: Tums)Calcium Carbonate 500 gd=224 mg elemental calcium Dose=_ mg calcium carbonate ( mg elemental calcium) Start Date: 01/30/17 Stop Date: 02/02/17 Status: Discontinuedcalcium gluconate + sodium chloride 0.9% INJ 50 mL 1 gm, 10 mL, Route: IVPB, PRN, Dosing Weight 54.7, kg, PRN Abnormal Lab Result, Start date: 171:54:00 CDT, Duration: 30 day, Stop date: 03/08/17 1:53:00 CDT, FOR ICU USE ONLY Notes: WASTE: F/P - Sink; E - Municipal Trash Bin Start Date: 02/06/17 Stop Date: 02/08/17 Status: Discontinuedcalcium gluconate + sodium chloride 0.9% INJ 50 mL 1 gm, 10 mL, Route: IVPB, PRN, Dosing Weight 54.7, kg, PRN Abnormal Lab Result, Start date: 01/30/1715:37:00 CDT, Duration: 30 day, Stop date: 03/01/17 15:36: 00 CDT, FOR ICU USE ONLY Notes: WASTE: F/P - Sink; E - Municipal Trash Bin Start Date: 01/30/17 Stop Date: 02/02/17 Status: DiscontinuedCalmoseptine 1 appl, Route: TOP, PRN, Drug form: OINT, PRN Diaper Rash, Start date: 02/15/17 7:17:00 CDT, Duration: 30 day, Stop date: 03/17/17 7:16:00 CDT, Dosing Notes: (Same as: Calmoseptine) Start Date: 02/15/17 Stop Date: 02/15/17 Status: DiscontinuedCalmoseptine topical ointment 1 appl, Route: TOP, BID, Drug form: OINT, Start date: 02/15/17 9:00:00 CDT, Duration: 30 day, Stop date: 03/16/17 17:00:00 CDT Notes: (Same as: Calmoseptine) Start Date: 02/15/17 Stop Date: 02/15/17 Status: DiscontinuedceFAZolin (ANES) Route: IV, Drug form: INJ, ONCE, Stop date: 02/09/17 8:59:00 CDT Start Date: 02/09/17 Stop Date: 02/09/17 Status: Completedcefepime 2 gm, Route: IVPB, Drug form: INJ, [id number], Dosing Weight 54.7, kg, (CrCl >/=50 ml/min, FRONT OFFICE SPEC infection or neutropenic fever), Start date: 01/27/17 11:00:00 CDT, Stop date: 02/07/17 23:59:00 CDT, ABX Indication: FRONT OFFICE SPEC Infection/Epidural Abcess Notes: (Same as: Maxipime) MEDICATION WASTE Product Size: 1999 mgProduct Wasted: _0__ mg Start Date: 01/27/17 Stop Date: 02/07/17 Status: CompletedcefTRIAXone 2 gm, Route: IVPB, Drug form: PDR/INJ, [id number], Dosing Weight 51.364, kg, Start date: 01/25/17 21:00:00 CDT, Duration: 14 day, Stop date: 02/08/17 9:00:00 CDT, ABX Indication: Bone/Joint Infection Notes: (Same As: Rocephin).Use with 100 mL NS and infuse over 30 min MEDICATION WASTE Product Size: 2000 mgProduct Wasted: ___ mg Start Date: 01/25/17 Stop Date: 01/27/17 Status: DiscontinuedcefTRIAXone 2 gm, Route: IVPB, Drug form: PDR/INJ, ONCE, Dosing Weight 51.364, kg, Priority : STAT, Start date: 01/25/17 8:09:00 CDT, Duration: 1 doses or times, Stop date : 01/25/17 8:09:00 CDT, ABX Indication: CNSInfection/Epidural Abcess Notes: (Same As: Rocephin).Use with 100 mL NS and infuse over 30 min MEDICATION WASTE Product Size: 1999 mgProduct Wasted: _0__ mg Start Date: 01/25/17 Stop Date: 01/25/17 Status: CompletedcefTRIAXone 2 gm, Route: IVPB, Drug form: PDR/INJ, [id number], Dosing Weight 51.364, kg, Start date: 01/25/17 14:00:00 CDT, Duration: 14 day, Stop date: 02/08/17 2:00:00 CDT, ABX Indication: Bone/Joint Infection Notes: (Same As: Rocephin).Use with 100 mL NS and infuse over 30 min MEDICATION WASTE Product Size: 2000 mgProduct Wasted: ___ mg Start Date: 01/25/17 Stop Date: 01/25/17 Status: DiscontinuedCymbalta 30 mg, 1 cap, Route: PO, Drug form: DRC, Daily, Dosing Weight 51.364, kg, Start date: 01/26/17 9:00:00 CDT, Stop date: 02/24/17 9:00:00 CDT Start Date: 01/26/17 Stop Date: 02/15/17 Status: [id number] 1/2NS 1,000 mL 1,000 mL, Rate: 75 ml/hr, Infuse over: 13.3 hr, Route: IV, Dosing Weight 54.7 kg , Total Volume: 1,000, Start date: 02/08/17 23:23:00 CDT, Duration: 30 day, Stop date: 03/10/17 23:22:00 CDT Start Date: 02/08/17 Stop Date: 02/15/17 Status: DiscontinuedDerma Soothe topical lotion 1 appl, Route: TOP, BID, Drug form: LOT, PRN Dry Skin, on forehead, Start date: 02/08/17 18:49:00 CDT, Duration: 30 day, Stop date: 03/10/17 18:48:00 CDT Notes: (Same as: Cetaphil Lotion) Start Date: 02/08/17 Stop Date: 02/15/17 Status: DiscontinuedDerma Soothe topical lotion TOP, BID, PRN Dry Skin, 0 Refill(s) Start Date: 02/11/17 Status: Suspendeddexamethasone 10 mg, Route: IVP, ONCE, Dosing Weight 51.364, kg, Priority: STAT, Start date: 01/25/17 8:18:00 CDT,Stop date: 01/25/17 8:18:00 CDT Start Date: 01/25/17 Stop Date: 01/25/17 Status: Completeddexamethasone 4 mg, 1 tab, Route: PO, Drug form: TAB, BID, Start date: 02/12/17 17:00:00 CDT, Duration: 2 day, Stop date: 02/14/17 9:00:00 CDT Notes: Give with food.(Same As: Decadron) Start Date: 02/12/17 Stop Date: 02/14/17 Status: Completeddexamethasone 6 mg, 1.5 mL, Route: IV, Drug form: INJ, Q8H, Dosing Weight 51.364, kg, Start date: 02/08/17 8:00:00CDT, Stop date: 02/10/17 8:30:00 CDT Notes: Concentration: 4mg/ml Start Date: 02/08/17 Stop Date: 02/10/17 Status: Completeddexamethasone 4 mg, 1 tab, Route: PO, Drug form: TAB, Q8H, Start date: 02/10/17 16:00:00 CDT, Duration: 2 day, Stop date: 02/12/17 8:00:00 CDT Notes: Give with food.(Same As: Decadron) Start Date: 02/10/17 Stop Date: 02/12/17 Status: Completeddexamethasone 8 mg, 2 mL, Route: IV, Drug form: INJ, Q6H, Dosing Weight 51.364, kg, Start date : 01/25/17 18:00:00 CDT, Duration: 30 day, Stop date: 02/24/17 12:00:00 CDT Notes: Concentration: 4mg/ml Start Date: 01/25/17 Stop Date: 02/08/17 Status: Discontinueddexamethasone 4 mg, 1 tab, Route: PO, Drug form: TAB, Daily, Start date: 02/15/17 9:00:00 CDT , Stop date: 179:00:00 CDT Notes: Give with food.(Same As: Decadron) Start Date: 02/15/17 Stop Date: 02/15/17 Status: Completeddexamethasone (ANES) Route: IV, Drug form: INJ, ONCE, Stop date: 02/09/17 9:59:00 CDT Start Date: 02/09/17 Stop Date: 02/09/17 Status: Completeddexamethasone 4 mg oral tablet 4 mg=1 tab, PO, Daily, X 3 day, # 3 tab, 0 Refill(s), Pharmacy: [id number] Start Date: 02/11/17 Stop Date: 02/14/17 Status: Completeddexamethasone 4 mg oral tablet 4 mg=1 tab, PO, BID, X 3 day, # 6 tab, 0 Refill(s), Pharmacy: [id number] Start Date: 02/11/17 Stop Date: 02/14/17 Status: Completeddextromethorphan-guaiFENesin 10 mg-100 mg/5 mL oral liquid 10 mL, PO, Q4H, PRN Cough, 0 Refill(s) Start Date: 02/11/17 Status: SuspendedDextrose 50% Syringe 12.5 gm, 25 mL, Route: IVP, Drug Form: INJ, Dosing Weight 54.7, kg, PRN, PRN Blood Glucose Results, Start date: 02/06/17 4:02:00 CDT, Duration: 30 day, Stop date: 03/08/17 4:01:00 CDT Start Date: 02/06/17 Stop Date: 02/15/17 Status: DiscontinuedDextrose 50% Syringe 25 gm, 50 mL, Route: IVP, Drug Form: INJ, Dosing Weight 54.7, kg, PRN, PRN Blood Glucose Results, Start date: 02/06/17 4:02:00 CDT, Duration: 30 day, Stop date: 03/08/17 4:01:00 CDT Start Date: 02/06/17 Stop Date: 02/15/17 Status: DiscontinuedDextrose 50% Syringe 25 gm, 50 mL, Route: IVP, Drug Form: INJ, Dosing Weight 54.7, kg, PRN, PRN Blood Glucose Results, Start date: 01/28/17 2:33:00 CDT, Duration: 30 day, Stop date: 02/27/17 2:32:00 CDT Start Date: 01/28/17 Stop Date: 02/06/17 Status: DiscontinuedDextrose 50% Syringe 12.5 gm, 25 mL, Route: IVP, Drug Form: INJ, Dosing Weight 54.7, kg, PRN, PRN Blood Glucose Results, Start date: 01/28/17 2:33:00 CDT, Duration: 30 day, Stop date: 02/27/17 2:32:00 CDT Start Date: 01/28/17 Stop Date: 02/06/17 Status: DiscontinuedDilaudid 1 mg, 0.5 mL, Route: IVP, Drug form: INJ, Q6H, Dosing Weight 54.7, kg, PRN Pain Score 7-10, Start date: 02/03/17 10:44:00 CDT, Duration: 30 day, Stop date: 09/21 10:43:00 CDT Notes: Same as: Dilaudid Start Date: 02/03/17 Stop Date: 02/15/17 Status: Discontinueddocusate 100 mg, 10 mL, Route: PO, Drug form: LIQ, BID, Dosing Weight 51.364, kg, Start date: 01/25/17 17:00:00 CDT, Stop date: 02/24/17 9:00:00 CDT Notes: (Same as: Colace) Start Date: 01/25/17 Stop Date: 02/15/17 Status: DiscontinuedDULoxetine 30 mg oral delayed release capsule 30 mg=1 cap, PO, Daily, # 90 cap, 0 Refill(s) Start Date: 01/26/17 Stop Date: 02/11/17 Status: DiscontinuedDULoxetine 30 mg oral delayed release capsule 30 mg=1 cap, PO, Daily, # 30 cap, 0 Refill(s), Pharmacy: [id number] Start Date: 02/11/17 Stop Date: 03/13/17 Status: Orderedenoxaparin 40 mg, 0.4 mL, Route: SUB-Q, Drug form: INJ, [id number], Dosing Weight 51.364, kg , Start date: 01/31/17 12:00:00 CDT, Duration: 30 day, Stop date: 03/01/17 12:00 :00 CDT Notes: (Same as: Lovenox) Start Date: 01/31/17 Stop Date: 02/15/17 Status: Discontinuedenoxaparin 40 mg, 0.4 mL, Route: SUB-Q, Drug form: INJ, [id number], Dosing Weight 51.364, kg , Start date: 01/25/17 14:00:00 CDT, Duration: 30 day, Stop date: 02/23/17 14:00 :00 CDT Notes: (Same as: Lovenox) Start Date: 01/25/17 Stop Date: 01/31/17 Status: DiscontinuedfentaNYL (ANES) Route: IV, Drug form: INJ, ONCE, Stop date: 02/09/17 8:24:00 CDT Start Date: 02/09/17 Stop Date: 02/09/17 Status: CompletedfentaNYL (ANES) Route: IV, Drug form: INJ, ONCE, Stop date: 01/30/17 9:22:00 CDT Start Date: 01/30/17 Stop Date: 01/30/17 Status: CompletedFLUoxetine 20 mg oral capsule 20 mg=1 cap, PO, Daily, # 30 cap, 0 Refill(s), Pharmacy: [id number] Start Date: 02/11/17 Stop Date: 03/13/17 Status: Suspendedglucagon 1 mg, Route: IM, Drug form: PDR/INJ, PRN, Dosing Weight 54.7, kg, PRN Blood Glucose Results, Start date: 02/06/17 4:02:00 CDT, Duration: 30 day, Stop date: 03/08/17 4:01:00 CDT Start Date: 02/06/17 Stop Date: 02/15/17 Status: Discontinuedglucagon 1 mg, Route: IM, Drug form: PDR/INJ, PRN, Dosing Weight 54.7, kg, PRN Blood Glucose Results, Start date: 01/28/17 2:33:00 CDT, Duration: 30 day, Stop date: 02/27/17 2:32:00 CDT Start Date: 01/28/17 Stop Date: 02/06/17 Status: Discontinuedglycopyrrolate (ANES) Route: IV, Drug form: INJ, ONCE, Stop date: 01/30/17 11:27:00 CDT Start Date: 01/30/17 Stop Date: 01/30/17 Status: Completedglycopyrrolate (ANES) Route: IV, Drug form: INJ, ONCE, Stop date: 02/09/17 10:50:00 CDT Start Date: 02/09/17 Stop Date: 02/09/17 Status: CompletedHaldol 2 mg, 0.4 mL, Route: IV, Drug form: INJ, ONCE, Dosing Weight 54.7, kg, Start date: 01/26/17 0:37:00 CDT, Stop date: 01/26/17 0:37:00 CDT Notes: (Same as: Haldol) Start Date: 01/26/17 Stop Date: 01/26/17 Status: CompletedHumulin N 5 unit, 0.05 mL, Route: SUB-Q, Drug form: INJ, Q8H, Start date: 02/03/17 9:30: 00 CDT, Duration: 30 day, Stop date: 03/05/17 8:00:00 CDT Notes: Roll in palms of hands gently; Do not shake vigorously. (Same as: Humulin N)Do not hold insulin without contacting prescriberWASTE: F/P - Black; E - Municipal Trash Bin Stable for 28 days at room temperatureExpires in ____ _ days from Date Start Date: 02/03/17 Stop Date: 02/07/17 Status: DiscontinuedHumulin N 8 unit, 0.08 mL, Route: SUB-Q, Drug form: INJ, Q8H, Start date: 02/07/17 16:00: 00 CDT, Duration: 30 day, Stop date: 03/09/17 8:00:00 CDT Notes: Roll in palms of hands gently; Do not shake vigorously. (Same as: Humulin N)Do not hold insulin without contacting prescriberWASTE: F/P - Black; E - Municipal Trash Bin Stable for 28 days at room temperatureExpires in ____ _ days from Date Start Date: 02/07/17 Stop Date: 02/08/17 Status: DiscontinuedHumulin N 10 unit, 0.1 mL, Route: SUB-Q, Drug form: INJ, Q8H, Start date: 02/08/17 8:00: 00 CDT, Duration: 30 day, Stop date: 03/10/17 0:00:00 CDT Notes: Roll in palms of hands gently; Do not shake vigorously. (Same as: Humulin N)Do not hold insulin without contacting prescriberWASTE: F/P - Black; E - Municipal Trash Bin Stable for 28 days at room temperatureExpires in ____ _ days from Date Start Date: 02/08/17 Stop Date: 02/15/17 Status: DiscontinuedhydrALAZINE 20 mg, 1 mL, Route: IVP, Drug form: INJ, Q4H, Dosing Weight 54.7, kg, PRN Hypertension, Start date: 02/01/17 20:13:00 CDT, Duration: 30 day, Stop date: 20:12:00 CDT Start Date: 02/01/17 Stop Date: 02/15/17 Status: Discontinuedhydromorphone 1 mg, 0.5 mL, Route: IVP, Drug form: INJ, ONCE, Dosing Weight 54.7, kg, Priority : STAT, Start date: 01/28/17 12:48:00 CDT, Stop date: 01/28/17 12:48:00 CDT Notes: Same as: Dilaudid Start Date: 01/28/17 Stop Date: 01/28/17 Status: Completedinsulin aspart 1 unit, 0.01 mL, Route: SUB-Q, Drug form: SOLN, Sliding Scale, Dosing Weight 54.7, kg, PRN Blood Glucose Results, Start date: 01/28/17 2:33:00 CDT, Duration : 30 day, Stop date: 02/27/17 2:32:00 CDT Notes: Roll in palms of hands gently; Do not shake vigorously. (Same as: Pipette)"single patient use only"WASTE: F/P - Black; E - Municipal Trash Bin Stable for 28 days at room temperature.Expires in days from Date Start Date: 01/28/17 Stop Date: 02/06/17 Status: Discontinuedinsulin aspart 2 unit, 0.02 mL, Route: SUB-Q, Drug form: SOLN, Sliding Scale, Dosing Weight 54.7, kg, PRN Blood Glucose Results, Start date: 01/28/17 2:33:00 CDT, Duration : 30 day, Stop date: 02/27/17 2:32:00 CDT Notes: Roll in palms of hands gently; Do not shake vigorously. (Same as: Pipette)"single patient use only"WASTE: F/P - Black; E - Municipal Trash Bin Stable for 28 days at room temperature.Expires in days from Date Start Date: 01/28/17 Stop Date: 02/06/17 Status: Discontinuedinsulin aspart 3 unit, 0.03 mL, Route: SUB-Q, Drug form: SOLN, Sliding Scale, Dosing Weight 54.7, kg, PRN Blood Glucose Results, Start date: 01/28/17 2:33:00 CDT, Duration : 30 day, Stop date: 02/27/17 2:32:00 CDT Notes: Roll in palms of hands gently; Do not shake vigorously. (Same as: NovoLOG)"single patient use only"WASTE: F/P - Black; E - [facility] Trash Bin Stable for 28 days at room temperature.Expires in days from Date Start Date: 01/28/17 Stop Date: 02/06/17 Status: Discontinuedinsulin aspart 4 unit, 0.04 mL, Route: SUB-Q, Drug form: SOLN, Sliding Scale, Dosing Weight 54.7, kg, PRN Blood Glucose Results, Start date: 01/28/17 2:33:00 CDT, Duration : 30 day, Stop date: 02/27/17 2:32:00 CDT Notes: Roll in palms of hands gently; Do not shake vigorously. (Same as: NovoLOG)"single patient use only"WASTE: F/P - Black; E - [facility] Trash Bin Stable for 28 days at room temperature.Expires in days from Date Start Date: 01/28/17 Stop Date: 02/06/17 Status: Discontinuedinsulin aspart 5 unit, 0.05 mL, Route: SUB-Q, Drug form: SOLN, Sliding Scale, Dosing Weight 54.7, kg, PRN Blood Glucose Results, Start date: 01/28/17 2:33:00 CDT, Duration : 30 day, Stop date: 02/27/17 2:32:00 CDT Notes: Roll in palms of hands gently; Do not shake vigorously. (Same as: NovoLOG)"single patient use only"WASTE: F/P - Black; E - [facility] Trash Bin Stable for 28 days at room temperature.Expires in days from Date Start Date: 01/28/17 Stop Date: 02/06/17 Status: Discontinuedinsulin isophane-NPH 10 unit, Route: SUB-Q, Q8H, Dosing Weight 54.7, kg, Start date: 02/03/17 8:00: 00 CDT, Duration: 30 day, Stop date: 03/05/17 0:00:00 CDT Start Date: 02/03/17 Stop Date: 02/03/17 Status: DeletedInsulin regular 12 unit, 0.12 mL, Route: SUB-Q, Drug form: SOLN, Sliding Scale, Dosing Weight 54.7, kg, PRN Blood Glucose Results, Start date: 02/06/17 4:02:00 CDT, Duration : 30 day, Stop date: 03/08/17 4:01:00 CDT Notes: (Same as: Humulin R) Roll in palms of hands gently; Do not shake vigorously. "single patientuse only"(Restricted to patients requiring a dose > 60 units)WASTE: F/P - Black; E - Municipal Trash Bin Stable for 28 days at room temperatureExpires in days from Date Start Date: 02/06/17 Stop Date: 02/15/17 Status: DiscontinuedInsulin regular 15 unit, 0.15 mL, Route: SUB-Q, Drug form: SOLN, Sliding Scale, Dosing Weight 54.7, kg, PRN Blood Glucose Results, Start date: 02/06/17 4:02:00 CDT, Duration : 30 day, Stop date: 03/08/17 4:01:00 CDT Notes: (Same as: Humulin R) Roll in palms of hands gently; Do not shake vigorously. "single patientuse only"(Restricted to patients requiring a dose > 60 units)WASTE: F/P - Black; E - Municipal Trash Bin Stable for 28 days at room temperatureExpires in days from Date Start Date: 02/06/17 Stop Date: 02/15/17 Status: DiscontinuedInsulin regular 9 unit, 0.09 mL, Route: SUB-Q, Drug form: SOLN, Sliding Scale, Dosing Weight 54.7, kg, PRN Blood Glucose Results, Start date: 02/06/17 4:02:00 CDT, Duration : 30 day, Stop date: 03/08/17 4:01:00 CDT Notes: (Same as: Humulin R) Roll in palms of hands gently; Do not shake vigorously. "single patientuse only"(Restricted to patients requiring a dose > 60 units)WASTE: F/P - Black; E - Municipal Trash Bin Stable for 28 days at room temperatureExpires in days from Date Start Date: 02/06/17 Stop Date: 02/15/17 Status: DiscontinuedInsulin regular 6 unit, 0.06 mL, Route: SUB-Q, Drug form: SOLN, Sliding Scale, Dosing Weight 54.7, kg, PRN Blood Glucose Results, Start date: 02/06/17 4:02:00 CDT, Duration : 30 day, Stop date: 03/08/17 4:01:00 CDT Notes: (Same as: Humulin R) Roll in palms of hands gently; Do not shake vigorously. "single patientuse only"(Restricted to patients requiring a dose > 60 units)WASTE: F/P - Black; E - Municipal Trash Bin Stable for 28 days at room temperatureExpires in days from Date Start Date: 02/06/17 Stop Date: 02/15/17 Status: DiscontinuedInsulin regular 3 unit, 0.03 mL, Route: SUB-Q, Drug form: SOLN, Sliding Scale, Dosing Weight 54.7, kg, PRN Blood Glucose Results, Start date: 02/06/17 4:02:00 CDT, Duration : 30 day, Stop date: 03/08/17 4:01:00 CDT Notes: (Same as: Humulin R) Roll in palms of hands gently; Do not shake vigorously. "single patientuse only"(Restricted to patients requiring a dose > 60 units)WASTE: F/P - Black; E - Municipal Trash Bin Stable for 28 days at room temperatureExpires in days from Date Start Date: 02/06/17 Stop Date: 02/15/17 Status: DiscontinuedKeppra 1,500 mg, Route: IV, ONCE, Dosing Weight 51.364, kg, Start date: 01/25/17 8:23: 00 CDT, Stop date: 01/25/17 8:23:00 CDT Start Date: 01/25/17 Stop Date: 01/25/17 Status: CompletedKeppra 750 mg, 7.5 mL, Route: PO, Drug form: SOLN, [id number], Start date: 02/07/17 21:00: 00 CDT, Stop date: 03/09/17 6:00:00 CDT Notes: Same as: Keppra Start Date: 02/07/17 Stop Date: 02/15/17 Status: DiscontinuedKeppra + sodium chloride 0.9% 100 mL INJ (for IV set) 100 mL 750 mg, Route: IVPB, Q12H, Start date: 01/25/17 21:00:00 CDT, Duration: 30 day, Stop date: 02/24/17 9:00:00 CDT Notes: Same as KeppraMix with 100 mL NS, LR or D5W MEDICATION WASTE Product Size: 500 mgProduct Wasted: ___ mg Start Date: 01/25/17 Stop Date: 02/07/17 Status: DiscontinuedKeppra + sodium chloride 0.9% 100 mL INJ (for IV set) 100 mL 1,000 mg, Route: IVPB, ONCE, Dosing Weight 54.7, kg, Loading Dose, Start date: 01/30/17 14:22:00 CDT, Duration: 1 doses or times, Stop date: 01/30/17 14:22:00 CDT Notes: Same as KeppraMix with 100 mL NS, LR or D5W MEDICATION WASTE Product Size: 500 mgProduct Wasted: ___ mg Start Date: 01/30/17 Stop Date: 01/30/17 Status: CompletedKeppra + sodium chloride 0.9% INJ 100 mL 500 mg, Route: IVPB, Q12H, Dosing Weight 54.7, kg, Start date: 01/30/17 21:00: 00 CDT, Duration: 30 day, Stop date: 03/01/17 9:00:00 CDT Notes: Same as KeppraMix with 100 mL NS, LR or D5W MEDICATION WASTE Product Size: 500 mgProduct Wasted: ___ mg Start Date: 01/30/17 Stop Date: 01/30/17 Status: CanceledKeppra 750 mg oral tablet 750 mg, 1 tab, Route: IV, Q12H, Dosing Weight 51.364, kg, Start date: 01/25/17 15:00:00 CDT, Duration: 30 day, Stop date: 02/24/17 9:00:00 CDT Start Date: 01/25/17 Stop Date: 01/25/17 Status: DeletedlevETIRAcetam 100 mg/mL oral solution 750 mg=7.5 mL, PO, [id number], # 450 mL, 0 Refill(s), Pharmacy: [id number] Start Date: 02/11/17 Stop Date: 03/13/17 Status: SuspendedlevETIRAcetam 100 mg/mL oral solution 750 mg=7.5 mL, PO, [id number], 0 Refill(s) Start Date: 02/15/17 Status: Orderedlevothyroxine 125 microgram, 1 tab, Route: PO, Drug form: TAB, Q630AM, Dosing Weight 51.364, kg, Start date: 01/26/17 6:30:00 CDT, Duration: 30 day, Stop date: 02/24/17 6:30 :00 CDT Notes: Take 1 hour before or 2 hours after meal; Enteral feeds may interefere with the absorption ofthis medication. (Same as:Levothroid) Start Date: 01/26/17 Stop Date: 02/15/17 Status: Discontinuedlevothyroxine 125 mcg (0.125 mg) oral tablet 125 microgram=1 tab, PO, Q630AM, 0 Refill(s) Start Date: 02/15/17 Status: Orderedlevothyroxine 125 mcg (0.125 mg) oral tablet 125 microgram=1 tab, PO, [id number], # 30 tab, 0 Refill(s), Pharmacy: [id number] Start Date: 02/11/17 Stop Date: 03/13/17 Status: Suspendedlevothyroxine 88 mcg (0.088 mg) oral tablet TAKE 1 TABLET (88 MCG TOTAL) BY MOUTH EVERY MORNING. Start Date: 01/26/17 Stop Date: 02/11/17 Status: Discontinuedlidocaine (ANES) Route: IV, Drug form: INJ, ONCE, Stop date: 02/09/17 8:24:00 CDT Start Date: 02/09/17 Stop Date: 02/09/17 Status: Completedlidocaine (ANES) Route: IV, Drug form: INJ, ONCE, Stop date: 01/30/17 9:22:00 CDT Start Date: 01/30/17 Stop Date: 01/30/17 Status: Completedlisinopril 10 mg oral tablet TAKE 1 TABLET BY MOUTH EVERY DAY Start Date: 01/26/17 Stop Date: 02/11/17 Status: DiscontinuedLR 1000 mL INJ (ANES) Route: IV, Total Volume: 1,000, Start date: 02/09/17 7:30:00 CDT, Stop date: 03/21 8:30:00 CDT Start Date: 02/09/17 Stop Date: 02/09/17 Status: Completedmagnesium oxide 800 mg, 2 tab, Route: PO, Drug form: TAB, PRN, Dosing Weight 54.7, kg, PRN Abnormal Lab Result, FOR ICU USE ONLY, Start date: 02/06/17 1:54:00 CDT, Duration: 30 day, Stop date: 03/08/17 1:53:00 CDT Notes: (Same as: Mag-Ox 400)Magnesium oxide [id number] elemental magnesiumDose= ____mg magnesium oxide (___mg elemental magnesium) Start Date: 02/06/17 Stop Date: 02/08/17 Status: Discontinuedmagnesium oxide 800 mg, 2 tab, Route: PO, Drug form: TAB, PRN, Dosing Weight 54.7, kg, PRN Abnormal Lab Result, FOR ICU USE ONLY, Start date: 01/30/17 15:37:00 CDT, Duration: 30 day, Stop date: 03/01/17 15:36:00 CDT Notes: (Same as: Mag-Ox 400)Magnesium oxide [id number] elemental magnesiumDose= ____mg magnesium oxide (___mg elemental magnesium) Start Date: 01/30/17 Stop Date: 02/02/17 Status: Discontinuedmagnesium sulfate 2 gm, 50 mL, Route: IVPB, Drug form: INJ, PRN, Dosing Weight 54.7, kg, PRN Abnormal Lab Result, Start date: 02/06/17 1:54:00 CDT, Duration: 30 day, Stop date: 03/08/17 1:53:00 CDT, FOR ICU USE ONLY Notes: WASTE: F/P - Sink; E - Municipal Trash Bin Start Date: 02/06/17 Stop Date: 02/08/17 Status: Discontinuedmagnesium sulfate 2 gm, 50 mL, Route: IVPB, Drug form: INJ, PRN, Dosing Weight 54.7, kg, PRN Abnormal Lab Result, Start date: 01/30/17 15:37:00 CDT, Duration: 30 day, Stop date: 03/01/17 15:36:00 CDT, FOR ICU USE ONLY Notes: WASTE: F/P - Sink; E - Municipal Trash Bin Start Date: 01/30/17 Stop Date: 02/02/17 Status: Discontinuedmelatonin 3 mg oral tablet 3 mg, 1 tab, Route: PO, Drug Form: TAB, Dosing Weight 54.7, kg, Bedtime, PRN Insomnia, Start date: 02/03/17 0:49:00 CDT, Duration: 30 day, Stop date: 0:48:00 CDT Notes: (Same as: Melatonin) Start Date: 02/03/17 Stop Date: 02/15/17 Status: Discontinuedmetoprolol (ANES) Route: IV, Drug form: INJ, ONCE, Stop date: 02/09/17 8:59:00 CDT Start Date: 02/09/17 Stop Date: 02/09/17 Status: Completedmetoprolol tartrate 50 mg, 1 tab, Route: PO, Drug form: TAB, [id number], Dosing Weight 51.364, kg, Start date: 01/25/17 21:00:00 CDT, Stop date: 02/24/17 6:00:00 CDT Notes: (Same as: Lopressor) Start Date: 01/25/17 Stop Date: 02/15/17 Status: Discontinuedmetoprolol tartrate 50 mg oral tablet 50 mg=1 tab, PO, [id number], 0 Refill(s) Start Date: 02/15/17 Status: Orderedmetoprolol tartrate 50 mg oral tablet 50 mg=1 tab, PO, Q12H, # 60 tab, 0 Refill(s), Pharmacy: [id number] Start Date: 02/11/17 Status: Suspendedmidazolam (ANES) Route: IV, Drug form: SOLN, ONCE, Stop date: 02/09/17 8:24:00 CDT Start Date: 02/09/17 Stop Date: 02/09/17 Status: CompletedMiraLax 17 gm, 1 pkt, Route: PO, Drug form: PWDR, Daily, Dosing Weight 51.364, kg, Start date: 01/26/17 9:00:00 CDT, Duration: 30 day, Stop date: 02/24/17 9:00:00 CDT Notes: Dissolve in 8 oz of water or juice.(Same as: Miralax) Start Date: 01/26/17 Stop Date: 02/15/17 Status: Discontinuedmorphine Sulfate 2 mg, 1 mL, Route: IVP, Drug form: INJ, ONCE, Dosing Weight 54.7, kg, Start date : 01/26/17 2:15:00 CDT, Stop date: 01/26/17 2:15:00 CDT Notes: (Same as:MORPhine Sulfate) Start Date: 01/26/17 Stop Date: 01/26/17 Status: Completedmorphine Sulfate 2 mg, 1 mL, Route: IVP, Drug form: INJ, Q4H, Dosing Weight 54.7, kg, PRN Pain Score 7-10, Start date: 02/03/17 9:26:00 CDT, Duration: 30 day, Stop date: 03/05 9:25:00 CDT Notes: (Same as:MORPhine Sulfate) Start Date: 02/03/17 Stop Date: 02/03/17 Status: Voided With Resultsmorphine Sulfate 4 mg, 1 mL, Route: IVP, Drug form: INJ, Q4H, Dosing Weight 54.7, kg, PRN Pain Score 7-10, Start date: 01/27/17 1:13:00 CDT, Duration: 30 day, Stop date: 02/26 1:12:00 CDT Notes: (Same as:MORPhine Sulfate) Start Date: 01/27/17 Stop Date: 01/30/17 Status: DiscontinuedNasal Saline 0.65% solution 2 spray, Route: NASAL, Q4H, Drug form: SOLN, Start date: 02/10/17 8:00:00 CDT, Duration: 30 day, Stop date: 03/12/17 4:00:00 CDT Notes: (Same as: Jones, [place] Nasal [place]). Start Date: 02/10/17 Stop Date: 02/15/17 Status: DiscontinuedNasal Saline 0.65% solution 2 spray, NASAL, Q4H, 0 Refill(s) Start Date: 02/11/17 Status: Suspendedneostigmine (ANES) Route: IV, Drug form: INJ, ONCE, Stop date: 01/30/17 11:27:00 CDT Start Date: 01/30/17 Stop Date: 01/30/17 Status: Completedneostigmine (ANES) Route: IV, Drug form: INJ, ONCE, Stop date: 02/09/17 10:50:00 CDT Start Date: 02/09/17 Stop Date: 02/09/17 Status: CompletedNexIUM 40 mg, Route: PO, BID-Before Meals, Dosing Weight 54.7, kg, Start date: 7:30:00 CDT, Duration: 30 day, Stop date: 03/02/17 16:30:00 CDT Start Date: 02/01/17 Stop Date: 01/31/17 Status: DeletedNorco 10/325 oral tablet 1 tab, Route: PO, Drug Form: TAB, Dosing Weight 54.7, kg, Q4H, PRN Pain 4-6/ Temp > 100.4 F, Start date: 01/30/17 8:42:00 CDT, Duration: 30 day, Stop date: 03/01/17 8:41:00 CDT Notes: Do not exceed 4gm/day of acetaminophen. (Same as: [place] 325/10) Start Date: 01/30/17 Stop Date: 02/15/17 Status: DiscontinuedNorco 7.5/325 oral tablet 1 tab, Route: PO, Drug Form: TAB, Dosing Weight 54.7, kg, Q4H, PRN Pain Score 4- 6, Start date: 01/29/17 11:16:00 CDT, Duration: 30 day, Stop date: 02/28/17 11: 15:00 CDT Notes: Same as [place] 325-7.5mg Do not exceed 4gm/day of acetaminophen. Start Date: 01/29/17 Stop Date: 02/15/17 Status: DiscontinuedNorvasc 5 mg, 2 tab, Route: PO, Drug form: TAB, ONCE, Dosing Weight 54.7, kg, Priority: NOW, Start date: 01/28/17 8:22:00 CDT, Stop date: 01/28/17 8:22:00 CDT Notes: (Same as: Norvasc) Start Date: 01/28/17 Stop Date: 01/28/17 Status: CompletedNS (Bolus) IV 1,000 mL, 1,000 ml/hr, Infuse Over: 1 hr, Route: IV, 1,000, Drug form: INJ, ONCE , Priority: STAT, Dosing Weight 51.364 kg, Start date: 01/25/17 14:03:00 CDT, Duration: 1 doses or times, Stop date: 01/25/17 14:03:00 CDT Start Date: 01/25/17 Stop Date: 01/25/17 Status: Completedomeprazole 40 mg, Route: PO, Drug form: DRC, Daily, Dosing Weight 51.364, kg, Start date: 01/26/17 9:00:00 CDT,Duration: 30 day, Stop date: 02/24/17 9:00:00 CDT Start Date: 01/26/17 Stop Date: 01/25/17 Status: Deletedondansetron 4 mg, 2 mL, Route: IVP, Drug form: INJ, Q6H, Dosing Weight 51.364, kg, PRN Nausea & Vomiting, Start date: 01/25/17 13:51:00 CDT, Duration: 30 day, Stop date: 02/24/17 13:50:00 CDT Notes: (Same as: Daniel) MEDICATION WASTE Product Size: 4 mgProduct Wasted: ___ mg Start Date: 01/25/17 Stop Date: 02/03/17 Status: Discontinuedondansetron (ANES) Route: IV, Drug form: INJ, ONCE, Stop date: 02/09/17 10:50:00 CDT Start Date: 02/09/17 Stop Date: 02/09/17 Status: Completedondansetron (ANES) Route: IV, Drug form: INJ, ONCE, Stop date: 01/30/17 11:26:00 CDT Start Date: 01/30/17 Stop Date: 01/30/17 Status: Completedpantoprazole 40 mg oral granule 40 mg=1 pkt, PO, [id number], # 60 pkt, 3 Refill(s), Pharmacy: [id number] Start Date: 02/11/17 Stop Date: 06/11/17 Status: Suspendedpantoprazole 40 mg oral granule 40 mg=1 pkt, PO, [id number], 0 Refill(s) Start Date: 02/15/17 Status: Orderedphenylephrine (ANES) Route: IV, Drug form: INJ, ONCE, Stop date: 01/30/17 9:57:00 CDT Start Date: 01/30/17 Stop Date: 01/30/17 Status: CompletedPHOS-NaK 2 pkt, Route: PO, Drug Form: PDR/REC, Dosing Weight 54.7, kg, BID-Before Meals, Start date: 177:30:00 CDT, Stop date: 01/28/17 16:31:00 CDT Notes: (Same as: Phos-NaK) Each 1.5 gm pkt has 250mg phosphorous. Mix w/2.5oz water and stir. Start Date: 01/28/17 Stop Date: 01/28/17 Status: CompletedPHOS-NaK 1 pkt, Route: PO, Drug Form: PDR/REC, Dosing Weight 54.7, kg, TID-Before Meals, Start date: 177:30:00 CDT, Duration: 2 day, Stop date: 02/03/17 16:30:00 CDT Notes: (Same as: Phos-NaK) Each 1.5 gm pkt has 250mg phosphorous. Mix w/2.5oz water and stir. Start Date: 02/02/17 Stop Date: 02/03/17 Status: Completedpolyethylene glycol 3350 oral powder for reconstitution 17 gm, PO, Daily, X 14 day, # 527 gm, 0 Refill(s), [id number] Start Date: 02/11/17 Stop Date: 02/25/17 Status: Suspendedpolyethylene glycol 3350 oral powder for reconstitution PO, Daily, 0 Refill(s) Start Date: 02/15/17 Status: Orderedpotassium chloride 20 mEq, 1 tab, Route: PO, Drug form: ERTAB, PRN, Dosing Weight 54.7, kg, PRN Abnormal Lab Result, Start date: 02/06/17 1:54:00 CDT, Duration: 30 day, Stop date: 03/08/17 1:53:00 CDT, FOR ICU USE ONLY Notes: (Same as: K-Dur 20)"Do Not Crush" With food and full glass of water Start Date: 02/06/17 Stop Date: 02/08/17 Status: Discontinuedpotassium chloride 20 mEq, 100 mL, Route: IVPB, Drug form: INJ, PRN, Dosing Weight 54.7, kg, PRN Abnormal Lab Result, Via central line, Start date: 02/06/17 1:54:00 CDT, Duration: 30 day, Stop date: 03/08/17 1:53:00 CDT,FOR ICU USE ONLY Notes: (Same as: KCL) Infuse no faster than 10 mEq/hr if given peripherally. Start Date: 02/06/17 Stop Date: 02/08/17 Status: Discontinuedpotassium chloride 10 mEq, 50 mL, Route: IVPB, Drug form: INJ, PRN, Dosing Weight 54.7, kg, PRN Abnormal Lab Result, Via peripheral line, Start date: 02/06/17 1:54:00 CDT, Duration: 30 day, Stop date: 03/08/17 1:53:00 CDT, FOR ICU USE ONLY Notes: (Same as: KCL) Infuse over 2 hours. Start Date: 02/06/17 Stop Date: 02/08/17 Status: Discontinuedpotassium chloride 20 mEq, 15 mL, Route: NJ, Drug form: LIQ, PRN, Dosing Weight 54.7, kg, PRN Abnormal Lab Result, Start date: 02/06/17 1:54:00 CDT, Duration: 30 day, Stop date: 03/08/17 1:53:00 CDT, FOR ICU USE ONLY Notes: (Same as: Potassium Chloride) Start Date: 02/06/17 Stop Date: 02/08/17 Status: Discontinuedpotassium chloride 10 mEq, 50 mL, Route: IVPB, Drug form: INJ, PRN, Dosing Weight 54.7, kg, PRN Abnormal Lab Result, Via peripheral line, Start date: 01/30/17 15:37:00 CDT, Duration: 30 day, Stop date: 03/01/17 15:36:00 CDT, FOR ICU USE ONLY Notes: (Same as: KCL) Infuse over 2 hours. Start Date: 01/30/17 Stop Date: 02/02/17 Status: Discontinuedpotassium chloride 20 mEq, 100 mL, Route: IVPB, Drug form: INJ, PRN, Dosing Weight 54.7, kg, PRN Abnormal Lab Result, Via central line, Start date: 01/30/17 15:37:00 CDT, Duration: 30 day, Stop date: 03/01/17 15:36:00 CDT, FOR ICU USE ONLY Notes: (Same as: KCL) Infuse no faster than 10 mEq/hr if given peripherally. Start Date: 01/30/17 Stop Date: 02/02/17 Status: Discontinuedpotassium chloride 20 mEq, 15 mL, Route: NJ, Drug form: LIQ, PRN, Dosing Weight 54.7, kg, PRN Abnormal Lab Result, Start date: 01/30/17 15:37:00 CDT, Duration: 30 day, Stop date: 03/01/17 15:36:00 CDT, FOR ICU USE ONLY Notes: (Same as: Potassium Chloride) Start Date: 01/30/17 Stop Date: 02/02/17 Status: Discontinuedpotassium chloride 20 mEq, 1 tab, Route: PO, Drug form: ERTAB, PRN, Dosing Weight 54.7, kg, PRN Abnormal Lab Result, Start date: 01/30/17 15:37:00 CDT, Duration: 30 day, Stop date: 03/01/17 15:36:00 CDT, FOR ICU USE ONLY Notes: (Same as: K-Dur 20)"Do Not Crush" With food and full glass of water Start Date: 01/30/17 Stop Date: 02/02/17 Status: Discontinuedpotassium phosphate 30 mmol, Route: IVPB, ONCE, Dosing Weight 54.7, kg, Start date: 01/28/17 6:41: 00 CDT, Stop date: 01/28/17 6:41:00 CDT Start Date: 01/28/17 Stop Date: 01/28/17 Status: Deletedpotassium phosphate 30 mmol, Route: IVPB, ONCE, Dosing Weight 54.7, kg, Start date: 01/27/17 9:00: 00 CDT, Stop date: 01/27/17 9:00:00 CDT Start Date: 01/27/17 Stop Date: 01/27/17 Status: Deletedpotassium phosphate + sodium chloride 0.9% INJ 250 mL 30 mmol, 10 mL, Route: IVPB, PRN, Dosing Weight 54.7, kg, PRN Abnormal Lab Result, Start date: 02/06/17 1:54:00 CDT, Duration: 30 day, Stop date: 03/08/17 1:53:00 CDT, FOR ICU USE ONLY Notes: (Same as: K Phosphate.) 1 mMol phoshate has 1.47 mEq potassium Infuse over 4 hours Start Date: 02/06/17 Stop Date: 02/08/17 Status: Discontinuedpotassium phosphate + sodium chloride 0.9% INJ 250 mL 45 mmol, 15 mL, Route: IVPB, PRN, Dosing Weight 54.7, kg, PRN Abnormal Lab Result, Start date: 02/06/17 1:54:00 CDT, Duration: 30 day, Stop date: 03/08/17 1:53:00 CDT, FOR ICU USE ONLY Notes: (Same as: K Phosphate.) 1 mMol phoshate has 1.47 mEq potassium Infuse over 4 hours Start Date: 02/06/17 Stop Date: 02/08/17 Status: Discontinuedpotassium phosphate + sodium chloride 0.9% INJ 250 mL 15 mmol, 5 mL, Route: IVPB, PRN, Dosing Weight 54.7, kg, PRN Abnormal Lab Result , Start date: 02/06/17 1:54:00 CDT, Duration: 30 day, Stop date: 03/08/17 1:53: 00 CDT, FOR ICU USE ONLY Notes: (Same as: K Phosphate.) 1 mMol phoshate has 1.47 mEq potassium Infuse over 4 hours Start Date: 02/06/17 Stop Date: 02/08/17 Status: Discontinuedpotassium phosphate + sodium chloride 0.9% INJ 250 mL 45 mmol, 15 mL, Route: IVPB, PRN, Dosing Weight 54.7, kg, PRN Abnormal Lab Result, Start date: 01/30/17 15:37:00 CDT, Duration: 30 day, Stop date: 15:36:00 CDT, FOR ICU USE ONLY Notes: (Same as: K Phosphate.) 1 mMol phoshate has 1.47 mEq potassium Infuse over 4 hours Start Date: 01/30/17 Stop Date: 02/02/17 Status: Discontinuedpotassium phosphate + sodium chloride 0.9% INJ 250 mL 30 mmol, 10 mL, Route: IVPB, PRN, Dosing Weight 54.7, kg, PRN Abnormal Lab Result, Start date: 01/30/17 15:37:00 CDT, Duration: 30 day, Stop date: 15:36:00 CDT, FOR ICU USE ONLY Notes: (Same as: K Phosphate.) 1 mMol phoshate has 1.47 mEq potassium Infuse over 4 hours Start Date: 01/30/17 Stop Date: 02/02/17 Status: Discontinuedpotassium phosphate + sodium chloride 0.9% INJ 250 mL 15 mmol, 5 mL, Route: IVPB, PRN, Dosing Weight 54.7, kg, PRN Abnormal Lab Result , Start date: 01/30/17 15:37:00 CDT, Duration: 30 day, Stop date: 03/01/17 15:36 :00 CDT, FOR ICU USE ONLY Notes: (Same as: K Phosphate.) 1 mMol phoshate has 1.47 mEq potassium Infuse over 4 hours Start Date: 01/30/17 Stop Date: 02/02/17 Status: Discontinuedpotassium phosphate + sodium chloride 0.9% INJ 250 mL 45 mmol, 15 mL, Route: IVPB, ONCE, Dosing Weight 54.7, kg, Start date: 02/09/17 15:04:00 CDT, Stop date: 02/09/17 15:04:00 CDT Notes: (Same as: K Phosphate.) 1 mMol phoshate has 1.47 mEq potassium Infuse over 4 hours Start Date: 02/09/17 Stop Date: 02/09/17 Status: Completedpotassium phosphate + sodium chloride 0.9% INJ 250 mL 45 mmol, 15 mL, Route: IVPB, ONCE, Dosing Weight 54.7, kg, Priority: NOW, Start date: 01/27/17 3:53:00 CDT, Stop date: 01/27/17 3:53:00 CDT Notes: (Same as: K Phosphate.) 1 mMol phoshate has 1.47 mEq potassium Infuse over 4 hours Start Date: 01/27/17 Stop Date: 01/27/17 Status: Completedpotassium phosphate-sodium phosphate 1 pkt, Route: PO, Drug Form: PDR/REC, ONCE, Start date: 01/28/17 10:37:00 CDT, Stop date: 01/28/17 10:37:00 CDT Start Date: 01/28/17 Stop Date: 01/28/17 Status: Completedpotassium phosphate-sodium phosphate 250 mg-280 mg-160 mg oral powder for reconstitution 2 pkt, Route: PO, Drug Form: PDR/REC, Dosing Weight 54.7, kg, PRN, PRN Abnormal Lab Result, FOR ICU USE ONLY, Start date: 02/06/17 1:54:00 CDT, Duration: 30 day , Stop date: 03/08/17 1:53:00 CDT Notes: (Same as: Phos-NaK) Each 1.5 gm pkt has 250mg phosphorous. Mix w/2.5oz water and stir. Start Date: 02/06/17 Stop Date: 02/08/17 Status: Discontinuedpotassium phosphate-sodium phosphate 250 mg-280 mg-160 mg oral powder for reconstitution 2 pkt, Route: PO, Drug Form: PDR/REC, Dosing Weight 54.7, kg, PRN, PRN Abnormal Lab Result, FOR ICU USE ONLY, Start date: 01/30/17 15:37:00 CDT, Duration: 30 day, Stop date: 03/01/17 15:36:00 CDT Notes: (Same as: Phos-NaK) Each 1.5 gm pkt has 250mg phosphorous. Mix w/2.5oz water and stir. Start Date: 01/30/17 Stop Date: 02/02/17 Status: Discontinuedpropofol (ANES) Route: IV, Drug form: INJ, ONCE, Stop date: 02/09/17 8:24:00 CDT Start Date: 02/09/17 Stop Date: 02/09/17 Status: Completedpropofol (ANES) Route: IV, Drug form: INJ, ONCE, Stop date: 01/30/17 9:22:00 CDT Start Date: 01/30/17 Stop Date: 01/30/17 Status: Completedpropofol (ANES) (ANES) Route: IV, Drug form: INJ, Start date: 01/30/17 8:29:00 CDT, Stop date: 9:29:00 CDT Start Date: 01/30/17 Stop Date: 01/30/17 Status: CompletedProtonix 40 mg, 1 tab, Route: PO, Drug form: ECTAB, Before Breakfast, Start date: 7:30:00 CDT, Duration: 30 day, Stop date: 02/24/17 7:30:00 CDT Notes: Tablet should not be chewed or crushed.(Same as: Protonix) Start Date: 01/26/17 Stop Date: 02/01/17 Status: DiscontinuedProtonix 40 mg, 1 pkt, Route: PO, Drug form: GRAN/REC, [id number], Start date: 02/01/17 9:00 :00 CDT, Stop date: 03/02/17 18:00:00 CDT Start Date: 02/01/17 Stop Date: 02/15/17 Status: DiscontinuedRobitussin 100 mg/5 mL oral liquid 200 mg, 10 mL, Route: PO, Drug form: LIQ, Q6H, Dosing Weight 51.364, kg, PRN Cough/Congestion, Startdate: 01/25/17 16:16:00 CDT, Duration: 30 day, Stop date : 02/24/17 16:15:00 CDT Notes: (Same as: Robitussin) Start Date: 01/25/17 Stop Date: 02/01/17 Status: DiscontinuedRobitussin-DM 10 mL, Route: PO, Drug Form: SYRP, Q4H, PRN Cough, Start date: 02/01/17 11:57: 00 CDT, Duration: 30 day, Stop date: 03/03/17 11:56:00 CDT Start Date: 02/01/17 Stop Date: 02/15/17 Status: Discontinuedrocuronium (ANES) Route: IV, Drug form: INJ, ONCE, Stop date: 02/09/17 8:24:00 CDT Start Date: 02/09/17 Stop Date: 02/09/17 Status: Completedrocuronium (ANES) Route: IV, Drug form: INJ, ONCE, Stop date: 01/30/17 9:22:00 CDT Start Date: 01/30/17 Stop Date: 01/30/17 Status: CompletedSaline Flush 0.9% 10 mL, Route: MISC, Drug Form: INJ, Dosing Weight 51.364, kg, PRN, PRN Line Flush, Start date: 01/25/17 8:08:00 CDT, Duration: 30 day, Stop date: 02/24/17 8 :07:00 CDT Notes: (Same as: BD Posiflush) Start Date: 01/25/17 Stop Date: 02/15/17 Status: Discontinuedsenna 8.6 mg oral tablet 17.2 mg=2 tab, PO, QNoon, 0 Refill(s) Start Date: 02/15/17 Status: Orderedsenna 8.6 mg oral tablet 17.2 mg, 2 tab, Route: PO, Drug Form: TAB, Dosing Weight 51.364, kg, QNoon, Start date: 01/26/17 12:00:00 CDT, Duration: 30 day, Stop date: 02/24/17 12:00: 00 CDT Notes: (Same as: Curt) Start Date: 01/26/17 Stop Date: 02/15/17 Status: Discontinuedsenna 8.6 mg oral tablet 17.2 mg=2 tab, PO, QNoon, X 14 day, # 28 tab, 0 Refill(s), Pharmacy: [id number] Start Date: 02/11/17 Stop Date: 02/25/17 Status: SuspendedSEROquel 25 mg, 1 tab, Route: PO, Drug form: TAB, ONCE, Dosing Weight 54.7, kg, Priority : NOW, Start date: 02/01/17 0:01:00 CDT, Stop date: 02/01/17 0:01:00 CDT Notes: (Same as: SEROquel) Start Date: 02/01/17 Stop Date: 02/01/17 Status: CompletedSodium Chloride 0.9% (Bolus) IV 1,600 mL, 2,000 ml/hr, Infuse Over: 0.8 hr, Route: IV, 1,600, Drug form: INJ, ONCE, Priority: STAT, Dosing Weight 51.364 kg, Start date: 01/25/17 8:08:00 CDT , Duration: 1 doses or times, Stop date: 01/25/17 8:08:00 CDT, Sepsis dose. Start Date: 01/25/17 Stop Date: 01/25/17 Status: Completedsodium chloride 0.9% 1000 ml INJ (ANES) Route: IV, Total Volume: 1,000, Start date: 01/30/17 8:01:00 CDT, Stop date: 9:01:00 CDT Start Date: 01/30/17 Stop Date: 01/30/17 Status: Completedsodium chloride 0.9% 1000 ml INJ 1,000 mL 1,000 mL, Rate: 75 ml/hr, Infuse over: 13.3 hr, Route: IV, Dosing Weight 54.7 kg , Total Volume: 1,000, Start date: 01/29/17 23:45:00 CDT, Duration: 30 day, Stop date: 02/28/17 23:44:00 CDT Start Date: 01/29/17 Stop Date: 02/05/17 Status: Discontinuedsodium chloride 0.9% 1000 ml INJ 1,000 mL 1,000 mL, Rate: 125 ml/hr, Infuse over: 8 hr, Route: IV, Dosing Weight 51.364 kg , Total Volume: 1,000, Start date: 01/25/17 14:03:00 CDT, Duration: 30 day, Stop date: 02/24/17 14:02:00 CDT Start Date: 01/25/17 Stop Date: 01/26/17 Status: Discontinuedsodium chloride 0.9% 500 ml INJ (ANES) Route: IV, Total Volume: 500, Start date: 01/30/17 8:29:00 CDT, Stop date: 01/30 9:29:00 CDT Start Date: 01/30/17 Stop Date: 01/30/17 Status: Completedsodium phosphate + sodium chloride 0.9% INJ 250 mL 30 mmol, 10 mL, Route: IVPB, PRN, Dosing Weight 54.7, kg, PRN Abnormal Lab Result, Start date: 02/06/17 1:54:00 CDT, Duration: 30 day, Stop date: 03/08/17 1:53:00 CDT, FOR ICU USE ONLY Start Date: 02/06/17 Stop Date: 02/08/17 Status: Discontinuedsodium phosphate + sodium chloride 0.9% INJ 250 mL 45 mmol, 15 mL, Route: IVPB, PRN, Dosing Weight 54.7, kg, PRN Abnormal Lab Result, Start date: 02/06/17 1:54:00 CDT, Duration: 30 day, Stop date: 03/08/17 1:53:00 CDT, FOR ICU USE ONLY Start Date: 02/06/17 Stop Date: 02/08/17 Status: Discontinuedsodium phosphate + sodium chloride 0.9% INJ 250 mL 15 mmol, 5 mL, Route: IVPB, PRN, Dosing Weight 54.7, kg, PRN Abnormal Lab Result , Start date: 02/06/17 1:54:00 CDT, Duration: 30 day, Stop date: 03/08/17 1:53: 00 CDT, FOR ICU USE ONLY Start Date: 02/06/17 Stop Date: 02/08/17 Status: Discontinuedsodium phosphate + sodium chloride 0.9% INJ 250 mL 45 mmol, 15 mL, Route: IVPB, PRN, Dosing Weight 54.7, kg, PRN Abnormal Lab Result, Start date: 01/30/17 15:37:00 CDT, Duration: 30 day, Stop date: 15:36:00 CDT, FOR ICU USE ONLY Start Date: 01/30/17 Stop Date: 02/02/17 Status: Discontinuedsodium phosphate + sodium chloride 0.9% INJ 250 mL 30 mmol, 10 mL, Route: IVPB, PRN, Dosing Weight 54.7, kg, PRN Abnormal Lab Result, Start date: 01/30/17 15:37:00 CDT, Duration: 30 day, Stop date: 15:36:00 CDT, FOR ICU USE ONLY Start Date: 01/30/17 Stop Date: 02/02/17 Status: Discontinuedsodium phosphate + sodium chloride 0.9% INJ 250 mL 15 mmol, 5 mL, Route: IVPB, PRN, Dosing Weight 54.7, kg, PRN Abnormal Lab Result , Start date: 01/30/17 15:37:00 CDT, Duration: 30 day, Stop date: 03/01/17 15:36 :00 CDT, FOR ICU USE ONLY Start Date: 01/30/17 Stop Date: 02/02/17 Status: Discontinuedsodium phosphate + sodium chloride 0.9% INJ 250 mL 30 mmol, 10 mL, Route: IVPB, ONCE, Dosing Weight 54.7, kg, Start date: 02/02/17 5:48:00 CDT, Stop date: 02/02/17 5:48:00 CDT Start Date: 02/02/17 Stop Date: 02/02/17 Status: Completedsodium phosphate + sodium chloride 0.9% INJ 250 mL 30 mmol, 10 mL, Route: IVPB, ONCE, Dosing Weight 54.7, kg, Start date: 02/08/17 7:37:00 CDT, Stop date: 02/08/17 7:37:00 CDT Start Date: 02/08/17 Stop Date: 02/08/17 Status: Completedsodium phosphate + sodium chloride 0.9% INJ 250 mL 30 mmol, 10 mL, Route: IVPB, ONCE, Dosing Weight 54.7, kg, Start date: 02/07/17 7:33:00 CDT, Stop date: 02/07/17 7:33:00 CDT Start Date: 02/07/17 Stop Date: 02/07/17 Status: CompletedSUFentanil (ANES) Route: IV, Drug form: INJ, ONCE, Stop date: 01/30/17 9:22:00 CDT Start Date: 01/30/17 Stop Date: 01/30/17 Status: CompletedSUFentanil (ANES) (ANES) Route: IV, Drug form: INJ, Start date: 01/30/17 8:29:00 CDT, Stop date: 9:29:00 CDT Start Date: 01/30/17 Stop Date: 01/30/17 Status: CompletedSymbicort 160/4.5 inhalation aerosol with adapter INHALE 2 (TWO) PUFFS BY MOUTH EVERY 12 HOURS Start Date: 01/26/17 Status: OrderedSymbicort 80/4.5 inhalation aerosol with adapter 2 inhalation, Route: INHALATION, Drug Form: AERO/A, Dosing Weight 51.364, kg, RBID, Start date: 01/25/17 17:00:00 CDT, Duration: 30 day, Stop date: 02/24/17 8 :00:00 CDT Notes: (Same as: Symbicort)WASTE: Aerosol - Return to Pharmacy Start Date: 01/25/17 Stop Date: 02/15/17 Status: DiscontinuedSymbicort 80/4.5 inhalation aerosol with adapter 2 inhalation, INHALATION, RBID, 0 Refill(s) Start Date: 02/15/17 Status: OrderedTessalon Perles 200 mg, 2 cap, Route: PO, Drug form: CAP, Q8H, Dosing Weight 54.7, kg, Start date: 02/04/17 16:00:00CDT, Duration: 30 day, Stop date: 03/06/17 8:00:00 CDT Notes: (Same As: Molina Mason)"Do Not Crush" Start Date: 02/04/17 Stop Date: 02/07/17 Status: Voided With ResultsTessalon Perles 200 mg, 2 cap, Route: PO, Drug form: CAP, TID, Dosing Weight 54.7, kg, Start date: 02/01/17 9:00:00 CDT, Duration: 30 day, Stop date: 03/02/17 17:00:00 CDT Notes: (Same As: Molina Mason)"Do Not Crush" Start Date: 02/01/17 Stop Date: 02/01/17 Status: Discontinuedvancomycin + sodium chloride 0.9% 500 ml INJ 500 mL 2,000 mg, Route: IVPB, ONCE, Dosing Weight 51.364, kg, Priority: STAT, Start date: 01/25/17 8:09:00 CDT, Duration: 1 doses or times, Stop date: 01/25/17 8:09 :00 CDT, ABX Indication: FRONT OFFICE SPEC Infection/Epidural Abcess Notes: TIME CRITICAL MEDICATION(Same As: Vancocin)Infusion rate< 1000 mg: infuse over 1 [id number] - 1500 mg: infuse over 1.5 hoursVancomycin FOR IV SET [id number] - 2000 mg: infuse over 2 hours> 2001 mg: infuse over 2.5 hours MEDICATION WASTE Product Size: 1000 mgProduct Wasted: ___ mg Start Date: 01/25/17 Stop Date: 01/25/17 Status: Completedvancomycin + sodium chloride 0.9% INJ 250 mL 1.5 gm, Route: IVPB, [id number], Dosing Weight 51.364, kg, Start date: 01/25/17 20: 00:00 CDT, Duration:14 day, Stop date: 02/08/17 8:00:00 CDT, ABX Indication: FRONT OFFICE SPEC Infection/Epidural Abcess Notes: TIME CRITICAL MEDICATION(Same As: Vancocin)Infusion rate< 1000 mg: infuse over 1 [id number] - 1500 mg: infuse over 1.5 hoursVancomycin FOR IV SET [id number] - 2000 mg: infuse over 2 hours> 2001 mg: infuse over 2.5 hours MEDICATION WASTE Product Size: 1000 mgProduct Wasted: ___ mg Start Date: 01/25/17 Stop Date: 01/27/17 Status: Discontinuedvancomycin + sodium chloride 0.9% INJ 250 mL 1.5 gm, Route: IVPB, [id number], Dosing Weight 51.364, kg, Start date: 01/25/17 14: 00:00 CDT, Duration:14 day, Stop date: 02/08/17 2:00:00 CDT, ABX Indication: FRONT OFFICE SPEC Infection/Epidural Abcess Notes: TIME CRITICAL MEDICATION(Same As: Vancocin)Infusion rate< 1000 mg: infuse over 1 [id number] - 1500 mg: infuse over 1.5 hoursVancomycin FOR IV SET [id number] - 2000 mg: infuse over 2 hours> 2001 mg: infuse over 2.5 hours MEDICATION WASTE Product Size: 1000 mgProduct Wasted: ___ mg Start Date: 01/25/17 Stop Date: 01/25/17 Status: Discontinuedvancomycin + sodium chloride 0.9% INJ 250 mL 1.25 gm, Route: IVPB, [id number], Start date: 01/27/17 11:00:00 CDT, Stop date: 01/19 23:00:00 CDT, ABX Indication: FRONT OFFICE SPEC Infection/Epidural Abcess Notes: TIME CRITICAL MEDICATION(Same As: Vancocin)Infusion rate< 1000 mg: infuse over 1 [id number] - 1500 mg: infuse over 1.5 hoursVancomycin FOR IV SET [id number] - 2000 mg: infuse over 2 hours> 2001 mg: infuse over 2.5 hours MEDICATION WASTE Product Size: 1000 mgProduct Wasted: ___ mg Start Date: 01/27/17 Stop Date: 02/07/17 Status: CompletedVisipaque 320mg/ml 95 mL, Route: IVP, Drug Form: SOLN, Dosing Weight 51.364, kg, ONCALL, STAT, Start date: 01/25/17 9:11:00 CDT, Duration: 1 doses or times, Dose=2.2ml/kg, Max niam=[id number] -- "To be infused by Radiology Staff ONLY" Start Date: 01/25/17 Stop Date: 01/25/17 Status: CompletedZofran 4 mg, 2 mL, Route: IVP, Drug form: INJ, Q8H, Dosing Weight 54.7, kg, PRN Nausea , Start date: 02/03/17 9:26:00 CDT, Duration: 30 day, Stop date: 03/05/17 9:25: 00 CDT Notes: (Same as: Zofran) MEDICATION WASTE Product Size: 4 mgProduct Wasted: ___ mg Start Date: 02/03/17 Stop Date: 02/15/17 Status: Discontinued Results BLOOD BANK RESULTS Most recent to oldest 1 2 3 [Reference Range]: ABO/Rh O POS O POS O POS *Unknown* *Unknown* *Unknown* (02/09/17 4:07 AM) (02/04/17 1:01 AM) (01/28/17 2:01 PM) Antibody Scrn Negative Negative Negative (02/09/17 4:07 AM) (02/04/17 1:01 AM) (01/28/17 2:01 PM) ELECTROLYTES Most recent to oldest 1 2 3 [Reference Range]: Sodium Lvl [135-145 mEq/L] 135 mEq/L 137 mEq/L 139 mEq/L (02/13/17 4:58 AM) (02/11/17 12:33 AM) (02/09/17 4:07 AM) Potassium Lvl [3.5-5.1 mEq/L] 4.0 mEq/L 4.5 mEq/L 3.8 mEq/L (02/13/17 4:58 AM) (02/11/17 12:33 AM) (02/09/17 4:07 AM) Chloride Lvl [95-109 mEq/L] 98 mEq/L 104 mEq/L 102 mEq/L (02/13/17 4:58 AM) (02/11/17 12:33 AM) (02/09/17 4:07 AM) CO2 [24-32 mEq/L] 29 mEq/L 27 mEq/L 29 mEq/L (02/13/17 4:58 AM) (02/11/17 12:33 AM) (02/09/17 4:07 AM) AGAP [10.0-20.0 mEq/L] 12.0 mEq/L 10.5 mEq/L 11.8 mEq/L (02/13/17 4:58 AM) (02/11/17 12:33 AM) (02/09/17 4:07 AM) CHEM PANEL Most recent to oldest 1 2 3 [Reference Range]: Creatinine Lvl [0.50-1.40 0.32 mg/dL 0.27 mg/dL 0.22 mg/dL mg/dL] *LOW* *LOW* *LOW* (02/13/17 4:58 AM) (02/11/17 12:33 AM) (02/09/17 4:07 AM) eGFR 129 mL/min/1.73m2 1 136 mL/min/1.73m2 2 144 mL/min/1.73m2 3 *NA* *NA* *NA* (02/13/17 4:58 AM) (02/11/17 12:33 AM) (02/09/17 4:07 AM) BUN [7-22 mg/dL] 18 mg/dL 15 mg/dL 16 mg/dL (02/13/17 4:58 AM) (02/11/17 12:33 AM) (02/09/17 4:07 AM) B/C Ratio [6-25] 56 46 56 *HI* *HI* *HI* (02/11/17 12:33 AM) (02/02/17 4:10 AM) (01/30/17 12:19 AM) Glucose Lvl [70-99 mg/dL] 209 mg/dL 118 mg/dL 114 mg/dL *HI* *HI* *HI* (02/13/17 4:58 AM) (02/11/17 12:33 AM) (02/09/17 4:07 AM) Total Protein [6.4-8.4 g/dL] 5.3 g/dL 5.5 g/dL 6.1 g/dL *LOW* *LOW* *LOW* (02/11/17 12:33 AM) (02/02/17 4:10 AM) (01/30/17 12:19 AM) Albumin Lvl [3.5-5.0 g/dL] 1.8 g/dL 1.8 g/dL 2.0 g/dL *LOW* *LOW* *LOW* (02/11/17 12:33 AM) (02/02/17 4:10 AM) (01/30/17 12:19 AM) Globulin [2.7-4.2 g/dL] 3.5 g/dL 3.7 g/dL 4.1 g/dL (02/11/17 12:33 AM) (02/02/17 4:10 AM) (01/30/17 12:19 AM) A/G Ratio [0.7-1.6] 0.5 0.5 0.5 *LOW* *LOW* *LOW* (02/11/17 12:33 AM) (02/02/17 4:10 AM) (01/30/17 12:19 AM) Calcium Lvl [8.5-10.5 mg/dL] 8.6 mg/dL 8.7 mg/dL 8.3 mg/dL (02/13/17 4:58 AM) (02/11/17 12:33 AM) *LOW* (02/09/17 4:07 AM) Phosphorus [2.5-4.5 mg/dL] 1.6 mg/dL 2.8 mg/dL 1.8 mg/dL *LOW* (02/11/17 12:33 AM) *LOW* (02/13/17 4:58 AM) (02/09/17 4:07 AM) Magnesium Lvl [1.8-2.4 mg/dL] 2.0 mg/dL 2.2 mg/dL 2.1 mg/dL (02/13/17 4:58 AM) (02/11/17 12:33 AM) (02/09/17 4:07 AM) ALT [0-65 unit/L] 31 unit/L 27 unit/L 26 unit/L (02/11/17 12:33 AM) (02/02/17 4:10 AM) (01/30/17 12:19 AM) AST [0-37 unit/L] 23 unit/L 11 unit/L 10 unit/L (02/11/17 12:33 AM) (02/02/17 4:10 AM) (01/30/17 12:19 AM) Alk Phos [39-136 unit/L] 86 unit/L 92 unit/L 97 unit/L (02/11/17 12:33 AM) (02/02/17 4:10 AM) (01/30/17 12:19 AM) Bili Total [0.2-1.3 mg/dL] 0.7 mg/dL 0.2 mg/dL 0.2 mg/dL (02/11/17 12:33 AM) (02/02/17 4:10 AM) (01/30/17 12:19 AM) Lactic Acid WB [0.5-2.2 1.1 mmol/L mmol/L] (01/25/17 8:14 AM) Procalcitonin Lvl [0.00-0.10 1.59 ng/mL ng/mL] *HI* (01/25/17 8:14 AM) 1Result Comment: The eGFR is calculated using [...] eGFR should be multiplied by the estimated BMI.CARDIAC ENZYMES Most recent to oldest [Reference Range]: 1 2 3 Total CK [12-191 unit/L] 20 unit/L (01/25/17 8:14 AM) CK MB [0.5-3.6 ng/mL] <0.5 ng/mL (01/25/17 8:14 AM) CK MB Index [0.0-2.5] <2.5 (01/25/17 8:14 AM) Troponin-I [0.00-0.40 ng/mL] <0.02 ng/mL (01/25/17 8:14 AM) SPECIAL CHEMISTRY Most recent to oldest [Reference Range]: 1 2 3 Hgb A1C [<=5.6 %] 6.1 % *HI* (01/28/17 3:36 AM) PARATHYROID PROFILE Most recent to oldest 1 2 3 [Reference Range]: Ca Ion WB [1.05-1.25 mMol/L] 1.10 mMol/L 1.10 mMol/L 1.11 mMol/L (02/07/17 5:13 AM) (02/05/17 10:56 PM) (02/05/17 1:10 AM) Ca Norm WB [1.05-1.25 mMol/L] 1.14 mMol/L 1.14 mMol/L 1.14 mMol/L (02/07/17 5:13 AM) (02/05/17 10:56 PM) (02/05/17 1:10 AM) TOXICOLOGY Most recent to oldest 1 2 3 [Reference Range]: Vanco Tr TND now * * *NA* *NA* *NA* (02/05/17 10:56 PM) (02/03/17 11:10 AM) (02/01/17 1:02 PM) Vanco Tr 15.7 ug/ml 14.6 ug/ml 9.6 ug/ml *NA* *NA* *NA* (02/05/17 10:56 PM) (02/03/17 11:10 AM) (02/01/17 1:02 PM) URINE AND STOOL Most recent to oldest [Reference Range]: 1 2 3 UA Turbidity [Clear] Clear Slight Cloudy (02/01/17 12:32 AM) (01/25/17 9:37 AM) UA Color [Yellow] Light Yellow Yellow *NA* *NA* (02/01/17 12:32 AM) (01/25/17 9:37 AM) UA pH [5.0-8.0] 6.5 (02/01/17 12:32 AM) UA pH [5.0-8.0] 6.0 (01/25/17 9:37 AM) UA Spec Grav [<=1.030] 1.010 (02/01/17 12:32 AM) UA Spec Grav [<=1.030] 1.022 *NA* (01/25/17 9:37 AM) UA Glucose [Negative mg/dL] Negative mg/dL *NA* (02/01/17 12:32 AM) UA Glucose [Negative] Negative (01/25/17 9:37 AM) UA Blood [Negative] Negative Negative (02/01/17 12:32 AM) (01/25/17 9:37 AM) UA Ketones [Negative mg/dL] Negative mg/dL >=80 mg/dL *NA* *ABN* (02/01/17 12:32 AM) (01/25/17 9:37 AM) UA Protein [Negative mg/dL] Negative mg/dL (02/01/17 12:32 AM) UA Protein [Negative] Trace *ABN* (01/25/17 9:37 AM) UA Urobilinogen [0.1-1.0 mg/dL] <=1.0 mg/dL *NA* (02/01/17 12:32 AM) UA Urobilinogen [0.1-1.0 EU/dL] 0.2 EU/dL (01/25/17 9:37 AM) UA Bili [Negative] Negative Negative *NA* *NA* (02/01/17 12:32 AM) (01/25/17 9:37 AM) UA Leuk Est [Negative] Trace Negative *ABN* (01/25/17 9:37 AM) (02/01/17 12:32 AM) UA Nitrite [Negative] Negative Negative (02/01/17 12:32 AM) (01/25/17 9:37 AM) UA WBC [0-5 /HPF] 9 /HPF *HI* (02/01/17 12:32 AM) UA WBC [None Seen /HPF] 3-5 /HPF (01/25/17 9:37 AM) UA RBC [0-2 /HPF] 1 /HPF (02/01/17 12:32 AM) UA RBC [0-2] None Seen (01/25/17 9:37 AM) UA Bacteria [None Seen /HPF] Occasional /HPF (01/25/17 9:37 AM) UA Sq Epi None Seen *NA* (02/01/17 12:32 AM) UA Sq Epi [Few /LPF] Occasional /LPF (01/25/17 9:37 AM) UA Hyal Cast [0-2 /LPF] 1 /LPF (02/01/17 12:32 AM) UA CaOx [place] [None Seen /HPF] Few /HPF (01/25/17 9:37 AM) UA Mucus [None Seen /LPF] Few /LPF Moderate /LPF *NA* *ABN* (02/01/17 12:32 AM) (01/25/17 9:37 AM) UA [place] Yeast [None Seen /HPF] Few /HPF *ABN* (02/01/17 12:32 AM) BODY FLUIDS Most recent to oldest [Reference Range]: 1 2 3 Glucose CSF [45-80 mg/dL] <1 mg/dL 1 *CRIT* (01/25/17 2:28 PM) Protein CSF [15-45 mg/dL] 1097 mg/dL 2 *HI* (01/25/17 2:28 PM) Lactic Acid CSF [0.6-2.2 mMol/L] 14.6 mMol/L *HI* (01/25/17 2:28 PM) Tube Num CSF 4 1 *NA* *NA* (01/25/17 2:28 PM) (01/25/17 2:28 PM) Color CSF [Colorless] Xanthoch Xanthoch 3 *ABN* *ABN* (01/25/17 2:28 PM) (01/25/17 2:28 PM) Clarity CSF [Clear] Slight Slight *ABN* *ABN* (01/25/17 2:28 PM) (01/25/17 2:28 PM) Supernat CSF [Colorless] Xanthoch Xanthoch *ABN* *ABN* (01/25/17 2:28 PM) (01/25/17 2:28 PM) RBC CSF [0-0 /mm3] 44 /mm3 104 /mm3 *HI* *HI* (01/25/17 2:28 PM) (01/25/17 2:28 PM) WBC CSF [0-5 /mm3] 118 /mm3 409 /mm3 *HI* *HI* (01/25/17 2:28 PM) (01/25/17 2:28 PM) Segs CSF [0-6 %] 90 % 4 99 % *HI* *HI* (01/25/17 2:28 PM) (01/25/17 2:28 PM) Lymph CSF [40-80 %] 9 % 1 % *LOW* *LOW* (01/25/17 2:28 PM) (01/25/17 2:28 PM) Monocyte CSF [15-45 %] 1 % *LOW* (01/25/17 2:28 PM) 1Result Comment: Double Checked Critical Result(s) called to Air[employer] Quraterets/NIMU at 01/25/2017 16:07 by VV. Read back OK.2Result Comment: "Significant Findings called to AirInnovegazulay/NIMU at 16:05 by VV.Read BackOK."3Result Comment: "Significant Findings called to taylor Vaxxaszulay_at 01/25/2017 17:05__by __sam_.Read BackOK."4Result Comment: "Significant Findings called to BookBagkemar Vaxxaszulay_at 01/25/2017 17:02__by ___sam.Read BackOK."HEMATOLOGY Most recent to 1 2 3 oldest [Reference Range]: WBC [3.7-10.4 K/CMM] 8.6 K/CMM 13.3 K/CMM 16.1 K/CMM (02/13/17 4:58 AM) *HI* *HI* (02/11/17 12:33 AM) (02/09/17 4:07 AM) RBC [4.20-5.40 3.17 M/CMM 3.43 M/CMM 3.74 M/CMM M/CMM] *LOW* *LOW* *LOW* (02/13/17 4:58 AM) (02/11/17 12:33 AM) (02/09/17 4:07 AM) Hgb [12.0-16.0 g/dL] 8.9 g/dL 9.6 g/dL 10.5 g/dL *LOW* *LOW* *LOW* (02/13/17 4:58 AM) (02/11/17 12:33 AM) (02/09/17 4:07 AM) Hct [36.0-48.0 %] 27.3 % 30.2 % 31.9 % *LOW* *LOW* *LOW* (02/13/17 4:58 AM) (02/11/17 12:33 AM) (02/09/17 4:07 AM) MCV [80.0-98.0 fL] 86.3 fL 88.0 fL 85.2 fL (02/13/17 4:58 AM) (02/11/17 12:33 AM) (02/09/17 4:07 AM) MCH [27.0-31.0 pg] 28.0 pg 27.9 pg 28.1 pg (02/13/17 4:58 AM) (02/11/17 12:33 AM) (02/09/17 4:07 AM) MCHC [32.0-36.0 32.5 g/dL 31.7 g/dL 33.0 g/dL g/dL] (02/13/17 4:58 AM) *LOW* (02/09/17 4:07 AM) (02/11/17 12:33 AM) RDW [11.5-14.5 %] 17.2 % 17.4 % 16.0 % *HI* *HI* *HI* (02/13/17 4:58 AM) (02/11/17 12:33 AM) (02/09/17 4:07 AM) Platelet [133-450 200 K/CMM 170 K/CMM 257 K/CMM K/CMM] (02/13/17 4:58 AM) (02/11/17 12:33 AM) (02/09/17 4:07 AM) MPV [7.4-10.4 fL] 9.5 fL 9.7 fL 8.8 fL (02/13/17 4:58 AM) (02/11/17 12:33 AM) (02/09/17 4:07 AM) Segs [45.0-75.0 %] 82.8 % 84.7 % 80.7 % *HI* *HI* *HI* (02/13/17 4:58 AM) (02/11/17 12:33 AM) (02/09/17 4:07 AM) Lymphocytes 14.1 % 13.5 % 17.1 % [20.0-40.0 %] *LOW* *LOW* *LOW* (02/13/17 4:58 AM) (02/11/17 12:33 AM) (02/09/17 4:07 AM) Monocytes [2.0-12.0 3.0 % 1.7 % 2.0 % %] (02/13/17 4:58 AM) *LOW* (02/09/17 4:07 AM) (02/11/17 12:33 AM) Eosinophils [0.0-4.0 0.1 % 0.1 % %] (02/05/17 10:56 PM) (01/25/17 8:14 AM) Basophils [0.0-1.0 0.1 % 0.1 % 0.2 % %] (02/13/17 4:58 AM) (02/11/17 12:33 AM) (02/09/17 4:07 AM) Segs-Bands # 7.1 K/CMM 11.3 K/CMM 13.0 K/CMM [1.5-8.1 K/CMM] (02/13/17 4:58 AM) *HI* *HI* (02/11/17 12:33 AM) (02/09/17 4:07 AM) Lymphocytes # 1.2 K/CMM 1.8 K/CMM 2.8 K/CMM [1.0-5.5 K/CMM] (02/13/17 4:58 AM) (02/11/17 12:33 AM) (02/09/17 4:07 AM) Monocytes # [0.0-0.8 0.3 K/CMM 0.2 K/CMM 0.3 K/CMM K/CMM] (02/13/17 4:58 AM) (02/11/17 12:33 AM) (02/09/17 4:07 AM) PT [12.0-14.7 13.0 seconds 14.3 seconds 16.2 seconds seconds] (02/09/17 4:07 AM) (01/30/17 12:19 AM) *HI* (01/26/17 12:56 AM) INR [0.85-1.17] 0.96 1.09 1.27 (02/09/17 4:07 AM) (01/30/17 12:19 AM) *HI* (01/26/17 12:56 AM) PTT [22.9-35.8 22.9 seconds 26.4 seconds 33.7 seconds seconds] (02/09/17 4:07 AM) (01/30/17 12:19 AM) (01/26/17 12:56 AM) R-time [5.0-10.0 2.1 minutes 3.3 minutes minutes] *LOW* *LOW* (02/09/17 4:07 AM) (01/30/17 12:19 AM) K-time [1.0-3.0 0.8 minutes 0.8 minutes minutes] *LOW* *LOW* (02/09/17 4:07 AM) (01/30/17 12:19 AM) Angle [53.0-72.0 78.9 degrees 77.9 degrees degrees] *HI* *HI* (02/09/17 4:07 AM) (01/30/17 12:19 AM) Max Amp [50.0-70.0 66.3 mm 73.9 mm mm] (02/09/17 4:07 AM) *HI* (01/30/17 12:19 AM) G-value [4.5-11.0 K 9.9 K d/sc 14.2 K d/sc d/sc] (02/09/17 4:07 AM) *HI* (01/30/17 12:19 AM) Ly30 [0.0-7.5 %] 2.6 % 0.3 % (02/09/17 4:07 AM) (01/30/17 12:19 AM) Coag Index 4.6 4.7 [-3.0-3.0] *HI* *HI* (02/09/17 4:07 AM) (01/30/17 12:19 AM) TEG Interp Thrombelastograph results show shortened value of R and increased value of Angle Alpha. These findings are suggestive of enzymatic hypercoagulation. Thrombelastograph results show shortened value of R and increased values of both Angle Alpha and MA. These findings are suggestive of platelet and enzymatic hypercoagulation which may be seen in early p hase of DIC. Monitor for DIC with DIC panel may be indicated. CPT:63080 CPT:38002 *NA* *NA* (02/09/17 4:07 AM) (01/30/17 12:19 AM) TEG Data See Note See Note (02/09/17 4:07 AM) (01/30/17 12:19 AM) MOLECULAR DIAGNOSTIC Most recent to oldest [Reference Range]: 1 2 3 Source HSV CSF (01/25/17 2:28 PM) HSV 1 by PCR [Negative] Negative 1 (01/25/17 2:28 PM) HSV 2 by PCR [Negative] Negative 2 (01/25/17 2:28 PM) Source CMV CSF (01/25/17 2:28 PM) CMV PCR [Negative] Negative (01/25/17 2:28 PM) Source VZV Cerebral Spinal Fluid *NA* (01/25/17 2:28 PM) VZV PCR [Negative] Negative (01/25/17 2:28 PM) 1Result Comment: This sample was NON DETECTED or BELOW THE LOWER LIMITS OF DETECTION for HSV 1/2 DNA by real-time PCR using hybridization probe and melting curve analysis.2Result Comment: This sample was NON DETECTED or BELOW THE LOWER LIMITS OF DETECTION for HSV 1/2 DNA by real-time PCR using hybridization probe and melting curve analysis.BACTERIAL - SEROLOGY Most recent to oldest [Reference Range]: 1 2 3 Source Strep Cerebral Spinal Fluid *NA* (01/25/17 2:28 PM) Strep pneumoniae Ag [Negative] Negative (01/25/17 2:28 PM) FUNGAL - SEROLOGY Most recent to oldest [Reference Range]: 1 2 3 Crypto Ag CSF [Negative] Negative (01/25/17 2:28 PM) Immunizations Given and Recorded Vaccine Date Status Refusal Reason tuberculin purified protein derivative 04/25/16 Given Not Given Vaccine Date Status Refusal Reason pneumococcal 23-valent vaccine 01/22/16 Not Given Parent Or Guardian Refuses Procedures Procedure Date Related Diagnosis Body Site Spinal puncture, lumbar, diagnostic 02/04/17 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 Patient denies depression, anhedonia, anxiety, psychotic symptoms and manic symptoms have occured. She enjoys TV and family. She does not want to be on antidepressant medication, and cymbalta pro duces drowsiness. With her consent, spoke with the daughter Lisa who believes patient is depressed, with lack of motivation, but does not think the cymbalta agrees with patient and wants her off this medication. Past Psychiatric History: Past Diagnoses: Depression on this hospitlization Past Treatment: Inpatient- Denied Outpatient- Denied Past Psychiatric Medications: The only medication is cymbalta 30mg daily started 2 weeks ago History of Lethality (suicidality, violence): Denied Past Medical and Surgical History: Acute meningitis vs meningioencephalaitis Sepsis Hypothyroidism Hypertension Anemia Medications: Outpatient Psychiatric Medications: none Inpatient Medications: Medications (36) Active Scheduled Meds (17): 01/26/17 DULoxetine (Cymbalta) 30 mg PO Daily 01/26/17 amantadine 100 mg PEG [id number] amoxicillin-clavulanate (Augmentin 875 mg oral tablet) 1 tab PEG [id number] 01/25/17 atorvastatin 40 mg PO Bedtime 01/25/17 budesonide-formoterol (Symbicort 80/4.5 inhalation aerosol with adapter) 2 inhalation INHALATION RBID 02/12/17 dexamethasone 4 mg PO BID 02/15/17 dexamethasone 4 mg PO Daily 01/25/17 docusate 100 mg PO BID 01/31/17 enoxaparin 40 mg SUB-Q [id number] 02/08/17 insulin isophane (Humulin N) 10 unit SUB-Q Q8H 02/07/17 levETIRAcetam (Keppra) 750 mg PO [id number] 01/26/17 levothyroxine 125 microgram PO [id number] 01/25/17 metoprolol (metoprolol tartrate) 50 mg PO [id number] 02/01/17 pantoprazole (Protonix) 40 mg PO [id number] 01/26/17 polyethylene glycol 3350 (MiraLax) 17 gm PO Daily 01/26/17 senna (senna 8.6 mg oral tablet) 17.2 mg PO QNoon 02/10/17 sodium chloride nasal (Nasal Saline 0.65% solution) 2 spray NASAL Q4H Unscheduled Meds: None PRN Meds (18): 02/06/17 Dextrose 50% in Water IV (Dextrose 50% Syringe) 12.5 gm IVP PRN 02/06/17 Dextrose 50% in Water IV (Dextrose 50% Syringe) 25 gm IVP PRN 02/06/17 Insulin regular 3 unit SUB-Q Sliding Scale 02/06/17 Insulin regular 6 unit SUB-Q Sliding Scale 02/06/17 Insulin regular 9 unit SUB-Q Sliding Scale 02/06/17 Insulin regular 12 unit SUB-Q Sliding Scale 02/06/17 Insulin regular 15 unit SUB-Q Sliding Scale 01/29/17 acetaminophen-hydrocodone ([place] 7.5/325 oral tablet) 1 tab PO Q4H 01/30/17 acetaminophen-hydrocodone ([place] 10/325 oral tablet) 1 tab PO Q4H 01/25/17 acetaminophen 650 mg PO Q4H 02/01/17 dextromethorphan-guaiFENesin (Robitussin-DM) 10 mL PO Q4H 02/08/17 emollients, topical ([place] Soothe topical lotion) 1 appl TOP BID 02/06/17 glucagon 1 mg IM PRN 02/01/17 hydrALAZINE 20 mg IVP Q4H 02/03/17 hydromorphone (Dilaudid) 1 mg IVP Q6H 02/03/17 melatonin (melatonin 3 mg oral tablet) 3 mg PO Bedtime 02/03/17 ondansetron (Zofran) 4 mg IVP Q8H 01/25/17 sodium chloride (Saline Flush 0.9%) 10 mL MISC PRN One Time Meds: None Continuous Infusions (1): 02/08/17 D5W 1/2NS 1,000 mL 1,000 mL 75 ml/hr Allergies (1) Active Reaction Phenergan Phenergan Family Psychiatric History: Denied Social and Developmental History: From [place], 12th grade education, 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, 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, [facility] Review of Systems: Constitutional- neg HEENT- neg Cardiovascular- neg Respiratory- neg Gastrointestinal- neg Genitourinary- neg Musculoskeletal- neg Hemotologic- neg Skin- neg Neurologic- neg Psychiatric - see above Mental Status Examination: General appearance and Behavior- calm, cooperative Musculoskeletal- no gross abnormal movement Speech- normal V/R/T Mood/Affect- good, affect constricted Thought process- logical Thought content- no SI/HI, no delusion Perceptual disturbances- no AVH Insight/Judgment- fair/ fair Cognitive Examination: Orientation- no gross disorientation Attention/concentration- grossly intact Fund of knowledge- grossly intact Abstracting ability- fair VS/Laboratory Data: Vitals Tmp(F) Pulse BP RR SpO2 FIO2 02/12 12:47 98.7 --- ----- -- --- --- 02/12 12:37 ---- 75 160/70 21 100 --- 02/12 12:00 ---- 86 146/68 23 97 --- 02/12 11:00 ---- 79 136/64 20 100 --- 02/12 10:11 ---- 73 144/67 16 --- --- 24 Hr Tmax: 99.5F (37.50c) at 02/12 09:00 Vital Signs are the last 5 in the past 48 hours. 24hr Labs 02/12 1210 Glucose POC 99 02/12 0855 Glucose POC 119 H 02/12 0547 Glucose POC 139 H 02/12 0015 Glucose POC 115 H 02/11 1606 Glucose POC 101 H Imaging Data: Reviewed Assessment: [place] I: Depression, unspecified [place] II: defer [place] III: as per medical hx [place] IV: hospitlization, medical [place] V: GAF 55 Recommendations: 1. Discontinue cymbalta 2. Outpatient psychiatric follow up can be scheduled in [facility]: tel [phone] Jose Mancera MD Attending psychiatrist Extracted from: Title: History and Physical Author: Adrienne Bowman MD Date: 01/25/17 Assessment/Plan 51 year old female admitted with acute meningitis vs meningioencephalitis. 1.Acute meningitis vs meningioencephalitis Broad differential. The patient was started on antibiotics in the ED. LP performed, results pending. Unclear etiology of xanthochromia. Ordered: acyclovir + sodium chloride 0.9% INJ 100 mL, 500 mg, Route: IVPB, ABXQ8H, Dosing Weight 51.364, kg, Start date: 01/25/17 15:00:00 CDT, Duration: 30 day, Stop date: 02/24/17 7:00:00 CDT, CrCl > 50 mL / min ampicillin, 2 gm, Route: IVPB, Drug form: PDR/INJ, ABXQ4H, Dosing Weight 51.364, kg, Start date: 01/25/17 15:00:00 CDT, Duration: 30 day, Stop date: 11:00:00 CDT dexamethasone, 8 mg, 2 mL, Route: IV, Drug form: INJ, Q6H, Dosing Weight 51.364, kg, Start date: 01/25/17 18:00:00 CDT, Duration: 30 day, Stop date: 12:00:00 CDT vancomycin + sodium chloride 0.9% INJ 250 mL, 1.5 gm, Route: IVPB, [id number], Dosing Weight 51.364, kg, Start date: 01/25/17 20:00:00 CDT, Duration: 14 day, Stop date: 02/08/17 8:00:00 CDT, ABX Indication: FRONT OFFICE SPEC Infection/Epidural Abcess Admit/Condition Admit/Condition 2.Sepsis Broad spectrum antimicrobials to cover for meningitis. Given possible bacterial meningitis I will start Dexamethasone as well. Await culture results. Start NS bolus and NS at 150 cc per hour. Ordered: acyclovir + sodium chloride 0.9% INJ 100 mL, 500 mg, Route: IVPB, ABXQ8H, Dosing Weight 51.364, kg, Start date: 01/25/17 15:00:00 CDT, Duration: 30 day, Stop date: 02/24/17 7:00:00 CDT, CrCl > 50 mL / min ampicillin, 2 gm, Route: IVPB, Drug form: PDR/INJ, ABXQ4H, Dosing Weight 51.364, kg, Start date: 01/25/17 15:00:00 CDT, Duration: 30 day, Stop date: 11:00:00 CDT cefTRIAXone, 2 gm, Route: IVPB, Drug form: PDR/INJ, LFOV20T, Dosing Weight 51.364, kg, Start date: 01/25/17 21:00:00 CDT, Duration: 14 day, Stop date: 02/19 9:00:00 CDT, ABX Indication: Bone/Joint Infection dexamethasone, 8 mg, 2 mL, Route: IV, Drug form: INJ, Q6H, Dosing Weight 51.364, kg, Start date: 01/25/17 18:00:00 CDT, Duration: 30 day, Stop date: 12:00:00 CDT 3.Convulsive seizure Likely secondary to infection. Started on Keppra, monitor in the [facility] closely. Ordered: Admit/Condition Admit/Condition 4.Headache Acetaminophen PRN. Ordered: Admit/Condition 5.Oropharyngeal dysphagia PEG in place. I will start tube feeds, the patient has been receiving tube feeds at the assisted living facility without difficulty. Site appears within normal limits, no reason to suspect that PEG is misplaced. Ordered: Nutrition Consult/Dietitian Consult Tube feed Continuous. 6.Adult hypothyroidism Resume levothyroxine. Ordered: levothyroxine, 125 microgram, Route: PO, Drug form: TAB, Daily, Dosing Weight 51.364, kg, Start date: 01/26/17 9:00:00 CDT, Duration: 30 day, Stop date: 02/24 9:00:00 CDT 7.Benign hypertension Resume metoprolol and follow blood pressure. Ordered: metoprolol tartrate, 50 mg, Route: PO, Drug form: TAB, Q12H, Dosing Weight 51.364, kg, Start date: 01/25/17 21:00:00 CDT, Duration: 30 day, Stop date: 9:00:00 CDT Prophylaxis Lovenox SQ. Disposition Pending LP results and final micro findings.
--- OUTSIDE RECORDS SUMMARY | 2019-01-05 19:36 | XMS REPORT | Summary of Care ---
:1965 Author Organization [facility] Address [address] [place] [id number] Encounter HQ Elijah_johanna(FIN) [id number] Date(s): 05/17/17 - 06/30/[address] [place] Final: Nontraumatic intracerebral hemorrhage, unspecified Discharge Disposition: Home or Self Care Attending Physician: Juan Douglas MD Admitting Physician: Juan Douglas MD Vital Signs Most recent to oldest 1 2 3 [Reference Range]: Height 160.02 cm 160.02 cm 160.02 cm (06/14/17 5:08 PM) (05/27/17 7:54 AM) (05/17/17 8:02 PM) Current Weight 50.909 kg 49.148 kg 50.455 kg (06/27/17 5:15 PM) (06/17/17 3:21 PM) (06/14/17 5:08 PM) Temperature Oral [96.4-99.1 96.7 DegF DegF] (06/26/17 12:50 PM) Blood Pressure 124/65 mmHg [90-140/60-90 mmHg] (06/29/17 7:30 PM) Systolic Blood Pressure 110 mmHg 117 mmHg [90-140 mmHg] (06/30/17 1:30 PM) (06/30/17 7:30 AM) Diastolic Blood Pressure 65 mmHg 69 mmHg [60-90 mmHg] (06/30/17 1:30 PM) (06/30/17 7:30 AM) Respiratory Rate [14-20 18 BRMIN 20 BRMIN 18 BRMIN BRMIN] (06/30/17 1:30 PM) (06/30/17 7:30 AM) (06/29/17 7:30 PM) Peripheral Pulse Rate 89 bpm 93 bpm 102 bpm [60-100 bpm] (06/30/17 1:30 PM) (06/30/17 7:30 AM) *HI* (06/29/17 7:30 PM) Weight 49.273 kg 49.273 kg (05/17/17 8:02 PM) (05/17/17 6:26 PM) Body Mass Index 19.24 m2 (05/17/17 8:02 PM) Problem List Condition Effective Dates Status [...] Subarachnoid Active hemorrhage(Confirmed) Stroke(Confirmed) Active 1Clipped in [id number] Aspirate - 06/17/[id number] Aspirate - [id number] - 05/06/[id number] added by Discern Expert.6Tracheal Aspirate - 89863Tooemwso Aspirate - 90663Cudeiih added by Discern Expert. Allergies, Adverse Reactions, Alerts Substance Reaction Severity Status Phenergan Phenergan Active promethazine Active Medications acetaminophen 650 mg, 20.3 mL, Route: PEG, Drug form: LIQ, Q4H, Dosing Weight 50, kg, PRN Pain 1-3/Temp > 100.4 F, Start date: 05/17/17 18:09:00 CDT, Stop date: 07/16/17 18:08:00 MICROBIOLOGY LAB ANALYST Notes: Max ghadcufheqcch=1734rw/day (4 gm/day). (Same as: Tylenol) Start Date: 05/17/17 Stop Date: 06/30/17 Status: Discontinuedacetaminophen 650 mg, PEG, Q6H, PRN Pain 1-3/Temp > 99.5 F, 0 Refill(s) Start Date: 05/16/17 Stop Date: 06/29/17 Status: Discontinuedacetylcysteine 20% inhalation solution 400 mg, 2 mL, Route: NEB, Drug Form: SOLN, Dosing Weight 49.273, kg, TRQ12H, PRN Secretions, Start date: 05/22/17 14:34:00 CDT, Duration: 60 day, Stop date: 08/20/17 14:33:00 MICROBIOLOGY LAB ANALYST Start Date: 05/22/17 Stop Date: 06/22/17 Status: Discontinuedacetylcysteine 20% inhalation solution 400 mg=2 mL, NEB, TID, # 180 mL, 1 Refill(s), Pharmacy: [id number] Start Date: 06/29/17 Status: Orderedacetylcysteine 20% inhalation solution 400 mg, 2 mL, Route: NEB, Drug Form: SOLN, Dosing Weight 49.273, kg, TRQ12H, Start date: 05/21/17 9:46:00 CDT, Duration: 30 day, Stop date: 06/20/17 7:30:00 CDT Start Date: 05/21/17 Stop Date: 05/22/17 Status: Discontinuedacetylcysteine 20% inhalation solution 400 mg, 2 mL, Route: NEB, Drug Form: SOLN, Dosing Weight 49.273, kg, TRTID, Start date: 06/22/17 19:30:00 CDT, Duration: 10 day, Stop date: 07/02/17 13:30: 00 CDT Start Date: 06/22/17 Stop Date: 06/30/17 Status: Discontinuedalbuterol-ipratropium 2.5-0.5 mg inhalation solution 3 mL, NEB, TRTID, Handheld Nebulizer, # 270 mL, 1 Refill(s), Pharmacy: [id number] Start Date: 06/29/17 Status: Orderedalbuterol-ipratropium 2.5-0.5 mg inhalation solution 3 mL, Route: NEB, Drug Form: SOLN, Dosing Weight 50, kg, PRN, PRN Respiratory Protocol, Start date: 05/17/17 18:09:00 CDT, Duration: 60 day, Stop date: 17:08:00 MICROBIOLOGY LAB ANALYST, Handheld Nebulizer Notes: (Same as: Jeff) Start Date: 05/17/17 Stop Date: 05/24/17 Status: Discontinuedalbuterol-ipratropium 2.5-0.5 mg inhalation solution 3 mL, Route: NEB, Drug Form: SOLN, Dosing Weight 50, kg, TRTID, Start date: 19:30:00 CDT, Duration: 14 day, Stop date: 07/06/17 13:30:00 CDT, Handheld Nebulizer Notes: (Same as: Jeff) Start Date: 06/22/17 Stop Date: 06/30/17 Status: Discontinuedalbuterol-ipratropium 2.5-0.5 mg inhalation solution 3 mL, Route: NEB, Drug Form: SOLN, Dosing Weight 50, kg, TRQ6H, PRN Respiratory Protocol, Start date: 05/24/17 9:07:00 CDT, Duration: 60 day, Stop date: 9:06:00 MICROBIOLOGY LAB ANALYST, Handheld Nebulizer Notes: (Same as: Jeff) Start Date: 05/24/17 Stop Date: 06/22/17 Status: Discontinuedamantadine 200 mg, 20 mL, Route: PEG, Drug form: SYRP, BID, Dosing Weight 50, kg, Start date: 06/10/17 8:00:00 CDT, Duration: 30 day, Stop date: 07/09/17 13:00: 00 CDT Notes: (Same as: Warren) Start Date: 06/10/17 Stop Date: 06/10/17 Status: Discontinuedamantadine 150 mg, 15 mL, Route: PEG, Drug form: SYRP, BID, Dosing Weight 50, kg, Start date: 06/11/17 8:00:00 CDT, Duration: 30 day, Stop date: 07/10/17 13:00: 00 MICROBIOLOGY LAB ANALYST Notes: (Same as: Warren) Start Date: 06/11/17 Stop Date: 06/15/17 Status: Discontinuedamantadine 100 mg, 10 mL, Route: PEG, Drug form: SYRP, BID-08-13, Dosing Weight 50, kg, Start date: 05/18/17 8:00:00 CDT, Duration: 30 day, Stop date: 06/16/17 13:00: 00 CDT Notes: (Same as: Abdoulayeetrnava) Start Date: 05/18/17 Stop Date: 05/31/17 Status: Discontinuedamantadine 150 mg, 15 mL, Route: PEG, Drug form: SYRP, BID--, Dosing Weight 50, kg, Start date: 06/01/17 8:00:00 CDT, Duration: 30 day, Stop date: 06/30/17 13:00: 00 CDT Notes: (Same as: Abdoulayeetrnava) Start Date: 06/01/17 Stop Date: 06/09/17 Status: Discontinuedamantadine 100 mg, 10 mL, Route: PEG, Drug form: SYRP, BID--, Dosing Weight 50, kg, Start date: 06/16/17 8:00:00 CDT, Duration: 60 day, Stop date: 08/14/17 13:00: 00 MICROBIOLOGY LAB ANALYST Notes: (Same as: Abdoulayeetrnava) Start Date: 06/16/17 Stop Date: 06/30/17 Status: Discontinuedamantadine 50 mg/5 mL oral syrup 100 mg=10 mL, PEG, BID-04-17, # 600 mL, 1 Refill(s), Pharmacy: [id number] Start Date: 06/29/17 Status: OrderedAmbien 5 mg, 1 tab, Route: PO, Drug form: TAB, Bedtime, Dosing Weight 49.273, kg, Start date: 06/01/17 21:00:00 CDT, Duration: 60 day, Stop date: 07/30/17 21:00: 00 MICROBIOLOGY LAB ANALYST Notes: (Same As: Ambien) Start Date: 06/01/17 Stop Date: 06/02/17 Status: DiscontinuedamLODIPine 5 mg, 1 tab, Route: PEG, Drug form: TAB, Daily, Dosing Weight 50, kg, Start date : 05/18/17 8:30:00 CDT, Duration: 60 day, Stop date: 07/16/17 8:30:00 MICROBIOLOGY LAB ANALYST Notes: (Same as: Norvasc) Start Date: 05/18/17 Stop Date: 05/18/17 Status: DiscontinuedamLODIPine 5 mg oral tablet 5 mg=1 tab, PEG, Daily, # 30 tab, 0 Refill(s) Start Date: 05/16/17 Stop Date: 06/29/17 Status: Discontinuedatorvastatin 40 mg, 2 tab, Route: PEG, Drug form: TAB, Bedtime, Dosing Weight 50, kg, Start date: 05/17/17 21:00:00 CDT, Duration: 60 day, Stop date: 07/15/17 21:00:00 MICROBIOLOGY LAB ANALYST Notes: (Same As: Lipitor) Start Date: 05/17/17 Stop Date: 06/30/17 Status: Discontinuedatorvastatin 40 mg oral tablet 40 mg=1 tab, PO, Bedtime, # 30 tab, 1 Refill(s), Pharmacy: [id number] Start Date: 06/29/17 Status: OrderedCathflo Activase 2 mg injection 2 mg, 2 mL, Route: INJ, Drug form: INJ, ONCE, Dosing Weight 49.273, kg, Start date: 05/27/17 18:04:00 CDT, Stop date: 05/27/17 18:04:00 CDT Notes: "Syringe for catheter clearance or interventional radiology use.Reconstitute each vial of Cathflo Activase with 2.2 ml Sterile Water resulting in a 1 mg/ml solution. (Same as: Activase) MEDICATION WASTE Product Size: 2 mgProduct Wasted: ___ mg Start Date: 05/27/17 Stop Date: 05/27/17 Status: CompletedCathflo Activase 2 mg injection 2 mg, 2 mL, Route: INJ, Drug form: INJ, ONCE, Dosing Weight 49.273, kg, Start date: 06/21/17 2:25:00CDT, Stop date: 06/21/17 2:25:00 CDT Notes: "Syringe for catheter clearance or interventional radiology use.Reconstitute each vial of Cathflo Activase with 2.2 ml Sterile Water resulting in a 1 mg/ml solution. (Same as: Activase) MEDICATION WASTE Product Size: 2 mgProduct Wasted: _0__ mg Start Date: 06/21/17 Stop Date: 06/21/17 Status: Completedcefepime + sodium chloride 0.9% INJ 100 mL 1 gm, Route: IVPB, [id number], Dosing Weight 49.273, kg, (CrCl 30 - 49 ml/min), Start date: 05/23/17 12:00:00 CDT, Duration: 10 day, Stop date: 06/02/17 0:00: 00 CDT, ABX Indication: Bacteremia Notes: (Same As: Maxipime) MEDICATION WASTE Product Size: 1000 mgProduct Wasted: ___ mg Start Date: 05/23/17 Stop Date: 05/25/17 Status: Discontinuedcefepime + sodium chloride 0.9% INJ 100 mL 2 gm, Route: IVPB, [id number], Dosing Weight 49.273, kg, (CrCl 30 - 49 ml/min, 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), Start date: 05/25/17 14:00:00 CDT, Stop date: 06/08/17 8:00:00 CDT, ABX Indication: Pneumonia Notes: (Same as: Maxipime) MEDICATION WASTE Product Size: 2000 mgProduct Wasted: ___ mg Start Date: 05/25/17 Stop Date: 06/08/17 Status: Completedcholecalciferol 2000 intl units oral tablet 2,000 IntlUnit, 2 tab, Route: PEG, Drug form: TAB, Daily, Dosing Weight 50, kg, Start date: 178:30:00 CDT, Duration: 60 day, Stop date: 07/16/17 8:30:00 MICROBIOLOGY LAB ANALYST Notes: Same as : Vitamin D3 Start Date: 05/18/17 Stop Date: 06/30/17 Status: Discontinuedcholecalciferol 2000 intl units oral tablet 2,000 IntlUnit=1 tab, PEG, Daily, # 30 tab, 0 Refill(s) Start Date: 05/16/17 Stop Date: 06/29/17 Status: Discontinuedcholecalciferol 2000 intl units oral tablet 2,000 IntlUnit=1 tab, PEG, Daily, # 30 tab, 1 Refill(s), Pharmacy: [id number] Start Date: 06/29/17 Status: Orderedcholestyramine 4 gm, Route: PO, Drug form: PDR/REC, Daily, Dosing Weight 50, kg, Start date: 8:30:00 CDT, Duration: 30 day, Stop date: 06/16/17 8:30:00 CDT Start Date: 05/18/17 Stop Date: 05/17/17 Status: Canceledcholestyramine 4 g/5 g oral powder =1 Pack, PEG, Daily, # 30 ea, 0 Refill(s) Start Date: 05/16/17 Stop Date: 06/29/17 Status: Discontinuedcollagenase topical 250 units/g ointment 1 appl, TOP, Daily, # 15 gm, 1 Refill(s), Pharmacy: [id number] Start Date: 06/29/17 Stop Date: 07/30/17 Status: Orderedcyanocobalamin 1,000 microgram, 1 tab, Route: PEG, Drug form: TAB, Daily, Dosing Weight 50, kg , Start date: 05/18/17 8:30:00 CDT, Duration: 60 day, Stop date: 07/16/17 8:30: 00 MICROBIOLOGY LAB ANALYST Notes: (Same As: Vitamin B-12) Start Date: 05/18/17 Stop Date: 05/20/17 Status: Discontinuedcyanocobalamin 1000 mcg sublingual tablet 1,000 microgram=1 tab, PEG, Daily, 0 Refill(s) Start Date: 05/16/17 Stop Date: 06/29/17 Status: DiscontinuedDextrose 50% Syringe 25 gm, 50 mL, Route: IVP, Drug Form: INJ, Dosing Weight 49.273, kg, PRN, PRN Blood Glucose Results, Start date: 05/17/17 21:31:00 CDT, Duration: 60 day, Stop date: 07/16/17 20:30:00 MICROBIOLOGY LAB ANALYST Start Date: 05/17/17 Stop Date: 06/09/17 Status: DiscontinuedDextrose 50% Syringe 12.5 gm, 25 mL, Route: IVP, Drug Form: INJ, Dosing Weight 49.273, kg, PRN, PRN Blood Glucose Results, Start date: 05/17/17 21:31:00 CDT, Duration: 60 day, Stop date: 07/16/17 20:30:00 MICROBIOLOGY LAB ANALYST Start Date: 05/17/17 Stop Date: 06/09/17 Status: Discontinueddocusate-senna 50 mg-8.6 mg oral tablet 1 tab, PO, Daily, # 30 tab, 1 Refill(s), Pharmacy: [id number] Start Date: 06/29/17 Status: Ordereddocusate-senna 50 mg-8.6 mg oral tablet 1 tab, Route: PO, Drug Form: TAB, Dosing Weight 49.273, kg, Daily, Start date: 05/20/17 8:30:00 CDT,Duration: 60 day, Stop date: 08/17/17 8:30:00 MICROBIOLOGY LAB ANALYST Notes: (Same as Senmirta-S) Equiv. to Tanya-Colace. Start Date: 05/20/17 Stop Date: 06/30/17 Status: Discontinueddoxycycline 100 mg, 1 tab, Route: PO, Drug form: TAB, [id number], Dosing Weight 49.273, kg, Start date: 06/11/17 1:00:00 CDT, Duration: 5 day, Stop date: 06/15/17 13:00:00 CDT Start Date: 06/11/17 Stop Date: 06/15/17 Status: CompletedDuoNeb inhalation solution 3 ml, INHALATION, QID, # 30 ea, 0 Refill(s) Start Date: 05/16/17 Stop Date: 06/29/17 Status: Discontinuedeszopiclone 1 mg oral tablet 1 mg=1 tab, PO, Bedtime, PRN for insomnia, # 30 tab, 1 Refill(s) Start Date: 06/29/17 Status: OrderedFLUoxetine 20 mg, 1 cap, Route: PEG, Drug form: CAP, Daily, Dosing Weight 50, kg, Start date: 05/18/17 8:30:00 CDT, Duration: 60 day, Stop date: 07/16/17 8:30:00 MICROBIOLOGY LAB ANALYST Notes: (Same as: Maximilian Johnson) Start Date: 05/18/17 Stop Date: 06/30/17 Status: DiscontinuedFLUoxetine 20 mg oral capsule 20 mg=1 cap, PEG, Daily, # 30 cap, 1 Refill(s), Pharmacy: [id number] Start Date: 06/29/17 Status: Orderedglucagon 1 mg, Route: IM, Drug form: PDR/INJ, PRN, Dosing Weight 49.273, kg, PRN Blood Glucose Results, Startdate: 05/17/17 21:31:00 CDT, Duration: 60 day, Stop date: 07/16/17 20:30:00 MICROBIOLOGY LAB ANALYST Start Date: 05/17/17 Stop Date: 06/09/17 Status: DiscontinuedguaiFENesin 200 mg, 10 mL, Route: PEG, Drug form: SYRP, QID, Dosing Weight 49.273, kg, Start date: 06/02/17 16:12:00 CDT, Stop date: 08/02/17 13:00:00 MICROBIOLOGY LAB ANALYST Notes: (Same as: Sebastiensin) Start Date: 06/02/17 Stop Date: 06/22/17 Status: DiscontinuedguaiFENesin 400 mg, 20 mL, Route: PEG, Drug form: SYRP, QID, Dosing Weight 49.273, kg, Start date: 06/22/17 17:00:00 CDT, Stop date: 07/22/17 13:00:00 MICROBIOLOGY LAB ANALYST Notes: (Same as: Anali) Start Date: 06/22/17 Stop Date: 06/30/17 Status: DiscontinuedguaiFENesin 100 mg/5 mL oral liquid 400 mg=20 mL, PEG, TID, # 1800 mL, 1 Refill(s), Pharmacy: [id number] Start Date: 06/29/17 Status: Orderedheparin 5000 units/mL injectable solution 5,000 unit, 1 mL, Route: SUB-Q, Drug form: INJ, Q12H, Dosing Weight 50, kg, Start date: 05/17/17 21:00:00 CDT, Duration: 30 day, Stop date: 06/16/17 9:00: 00 CDT Notes: porcine heparin Start Date: 05/17/17 Stop Date: 06/09/17 Status: Discontinuedheparin 5000 units/mL injectable solution 5,000 unit can, SUB-Q, Q12H, # 10 vial, 0 Refill(s) Start Date: 05/16/17 Stop Date: 06/29/17 Status: Discontinuedinsulin aspart SUB-Q, TID-Before Meals, sliding scale, 0 Refill(s) Start Date: 05/16/17 Stop Date: 06/29/17 Status: Discontinuedinsulin lispro 3 unit, 0.03 mL, Route: SUB-Q, Drug form: SOLN, TID-Before Meals, Dosing Weight 50, kg, PRN Blood Glucose Results, Start date: 05/17/17 18:09:00 CDT, Duration: 60 day, Stop date: 07/16/17 18:08:00 MICROBIOLOGY LAB ANALYST Notes: Roll in palms of hands gently; Do not shake `vigorously. (Same as: Humalog )"Single Patient Use Only "WASTE: F/P - Black; E - Municipal Trash Bin Stable for 28 days at room temperature.Expiresin days from Date Start Date: 05/17/17 Stop Date: 05/26/17 Status: Discontinuedinsulin lispro 4 unit, 0.04 mL, Route: SUB-Q, Drug form: SOLN, TID-Before Meals, Dosing Weight 50, kg, PRN Blood Glucose Results, Start date: 05/17/17 18:09:00 CDT, Duration: 60 day, Stop date: 07/16/17 18:08:00 MICROBIOLOGY LAB ANALYST Notes: Roll in palms of hands gently; Do not shake `vigorously. (Same as: [employer] )"Single Patient Use Only "WASTE: F/P - Black; E - Municipal Trash Bin Stable for 28 days at room temperature.Expiresin days from Date Start Date: 05/17/17 Stop Date: 05/26/17 Status: Discontinuedinsulin lispro 5 unit, 0.05 mL, Route: SUB-Q, Drug form: SOLN, TID-Before Meals, Dosing Weight 50, kg, PRN Blood Glucose Results, Start date: 05/17/17 18:09:00 CDT, Duration: 60 day, Stop date: 07/16/17 18:08:00 MICROBIOLOGY LAB ANALYST Notes: Roll in palms of hands gently; Do not shake `vigorously. (Same as: Humalog )"Single Patient Use Only "WASTE: F/P - Black; E - Municipal Trash Bin Stable for 28 days at room temperature.Expiresin days from Date Start Date: 05/17/17 Stop Date: 05/26/17 Status: Discontinuedinsulin lispro 1 unit, 0.01 mL, Route: SUB-Q, Drug form: SOLN, TID-Before Meals, Dosing Weight 50, kg, PRN Blood Glucose Results, Start date: 05/17/17 18:09:00 CDT, Duration: 60 day, Stop date: 07/16/17 18:08:00 MICROBIOLOGY LAB ANALYST Notes: Roll in palms of hands gently; Do not shake `vigorously. (Same as: Humalog )"Single Patient Use Only "WASTE: F/P - Black; E - Municipal Trash Bin Stable for 28 days at room temperature.Expiresin days from Date Start Date: 05/17/17 Stop Date: 05/26/17 Status: Discontinuedinsulin lispro 2 unit, 0.02 mL, Route: SUB-Q, Drug form: SOLN, TID-Before Meals, Dosing Weight 50, kg, PRN Blood Glucose Results, Start date: 05/17/17 18:09:00 CDT, Duration: 30 day, Stop date: 06/16/17 18:08:00 CDT Notes: Roll in palms of hands gently; Do not shake `vigorously. (Same as: Humalog )"Single Patient Use Only "WASTE: F/P - Black; E - Municipal Trash Bin Stable for 28 days at room temperature.Expiresin days from Date Start Date: 05/17/17 Stop Date: 05/26/17 Status: Discontinuedlactobacillus acidophilus 1 tab, Route: PEG, Drug Form: CHEWTAB, Dosing Weight 50, kg, TID, Start date: 21:00:00 CDT,Duration: 60 day, Stop date: 08/15/17 13:00:00 MICROBIOLOGY LAB ANALYST Notes: High Potency Chewable lactobabacillus acidophilus 1 billion bacteria/ tablet Start Date: 05/17/17 Stop Date: 06/16/17 Status: Discontinuedlactobacillus acidophilus 1 tab, PEG, TID, 0 Refill(s) Start Date: 05/16/17 Stop Date: 06/29/17 Status: DiscontinuedlevETIRAcetam 1,500 mg, Route: IV, Drug form: INJ, PRN, Dosing Weight 50, kg, PRN Seizure, Start date: 05/17/17 18:09:00 CDT, Duration: 60 day, Stop date: 07/16/17 17:08: 00 MICROBIOLOGY LAB ANALYST Notes: Same as KeppraMix with 100 mL NS, LR or D5W MEDICATION WASTE Product Size: 500 mgProduct Wasted: ___ mg Start Date: 05/17/17 Stop Date: 06/30/17 Status: DiscontinuedlevETIRAcetam 100 mg/mL oral solution 750 mg=7.5 mL, PEG, [id number], # 450 mL, 1 Refill(s), Pharmacy: [id number] Start Date: 06/29/17 Status: OrderedlevETIRAcetam 100 mg/mL oral solution 750 mg, 7.5 mL, Route: PEG, Drug form: SOLN, [id number], Dosing Weight 50, kg, Start date: 05/17/17 21:00:00 CDT, Duration: 60 day, Stop date: 07/16/17 18:00: 00 MICROBIOLOGY LAB ANALYST Notes: Same as: Keppra Start Date: 05/17/17 Stop Date: 06/30/17 Status: Discontinuedlevofloxacin 500 mg, Route: PEG, Drug form: TAB, Daily, Dosing Weight 50, kg, Start date: 8:30:00 CDT, Duration: 7 day, Stop date: 05/29/17 8:30:00 CDT, ABX Indication: Pneumonia Start Date: 05/23/17 Stop Date: 05/22/17 Status: Canceledlevofloxacin 500 mg, 1 tab, Route: PEG, Drug form: TAB, Daily, Dosing Weight 50, kg, Start date: 05/22/17 17:00:00 CDT, Duration: 7 day, Stop date: 05/28/17 17:00:00 CDT, ABX Indication: Pneumonia Start Date: 05/22/17 Stop Date: 05/23/17 Status: Discontinuedlevofloxacin 500 mg, 1 tab, Route: PEG, Drug form: TAB, Daily, Dosing Weight 50, kg, Start date: 05/18/17 8:30:00CDT, Duration: 3 day, Stop date: 05/20/17 8:30:00 CDT, ABX Indication: Pneumonia Start Date: 05/18/17 Stop Date: 05/20/17 Status: Completedlevofloxacin 500 mg oral tablet 500 mg=1 tab, PEG, Daily, # 7 tab, 0 Refill(s) Start Date: 05/16/17 Stop Date: 06/29/17 Status: DiscontinuedLevothroid 100 microgram, 1 tab, Route: PO, Drug form: TAB, Q630AM, Start date: 06/14/17 6: 30:00 CDT, Duration:30 day, Stop date: 07/13/17 6:30:00 MICROBIOLOGY LAB ANALYST Notes: Take 1 hour before or 2 hours after meal; Enteral feeds may interefere with the absorption ofthis medication. (Same as:Levothroid, Synthroid) Start Date: 06/14/17 Stop Date: 06/13/17 Status: Canceledlevothyroxine 175 microgram, Route: PO, Drug form: TAB, Q630AM, Dosing Weight 49.273, kg, Start date: 06/14/17 6:30:00 CDT, Duration: 30 day, Stop date: 07/13/17 6:30:00 MICROBIOLOGY LAB ANALYST Start Date: 06/14/17 Stop Date: 06/13/17 Status: Deletedlevothyroxine 200 microgram, 2 tab, Route: PEG, Drug form: TAB, QAM, Dosing Weight 50, kg, Start date: 05/18/17 6:30:00 CDT, Duration: 60 day, Stop date: 07/16/17 6:30:00 MICROBIOLOGY LAB ANALYST Notes: Take 1 hour before or 2 hours after meal; Enteral feeds may interefere with the absorption ofthis medication. (Same as:Levothroid, Synthroid) Start Date: 05/18/17 Stop Date: 06/13/17 Status: Discontinuedlevothyroxine 88 microgram, 1 tab, Route: PO, Drug form: TAB, Q630AM, Dosing Weight 49.273, kg , Start date: 06/17/17 6:30:00 CDT, Duration: 60 day, Stop date: 08/15/17 6:30: 00 MICROBIOLOGY LAB ANALYST Notes: Take 1 hour before or 2 hours after meal; Enteral feeds may interefere with the absorption ofthis medication. (Same as:Synthroid) Start Date: 06/17/17 Stop Date: 06/30/17 Status: Discontinuedlevothyroxine 150 microgram, Route: PO, Drug form: TAB, Q630AM, Dosing Weight 49.273, kg, Start date: 06/14/17 6:30:00 CDT, Duration: 30 day, Stop date: 07/13/17 6:30:00 MICROBIOLOGY LAB ANALYST Start Date: 06/14/17 Stop Date: 06/13/17 Status: Canceledlevothyroxine 200 mcg (0.2 mg) oral tablet 200 microgram=1 tab, PEG, Daily, # 30 tab, 0 Refill(s) Start Date: 05/16/17 Stop Date: 06/29/17 Status: Discontinuedlevothyroxine 88 mcg (0.088 mg) oral tablet 88 microgram=1 tab, PO, Q630AM, # 30 tab, 1 Refill(s), Pharmacy: [id number] Start Date: 06/29/17 Status: Orderedlidocaine 1% 50 mg, 5 mL, Route: INTRADERM, Drug Form: INJ, Dosing Weight 49.273, kg, ONCALL , Start date: 05/26/17 17:00:00 CDT, Duration: 30 day, Stop date: 06/25/17 16:59 :00 CDT Notes: (Same as: Xylocaine) Start Date: 05/26/17 Stop Date: 06/30/17 Status: Discontinuedlidocaine 2% See Instructions, gel. Apply topically daily, 0 Refill(s) Start Date: 05/16/17 Stop Date: 06/29/17 Status: Discontinuedliothyronine 5 microgram, 1 tab, Route: PEG, Drug form: TAB, Daily, Dosing Weight 50, kg, Start date: 05/18/17 8:30:00 CDT, Duration: 60 day, Stop date: 07/16/17 8:30:00 MICROBIOLOGY LAB ANALYST Notes: (Same as: Cytomel) Start Date: 05/18/17 Stop Date: 06/13/17 Status: Discontinuedliothyronine 5 mcg oral tablet 5 microgram=1 tab, PEG, Daily, # 30 tab, 0 Refill(s) Start Date: 05/16/17 Stop Date: 06/29/17 Status: DiscontinuedLopressor 50 mg, 1 tab, Route: PEG, Drug form: TAB, Q12H, Dosing Weight 50, kg, Start date : 05/17/17 21:00:00 CDT, Duration: 60 day, Stop date: 07/16/17 9:00:00 MICROBIOLOGY LAB ANALYST Notes: (Same as: Lopressor) Start Date: 05/17/17 Stop Date: 06/11/17 Status: DiscontinuedLopressor 12.5 mg, 0.5 tab, Route: PEG, Drug form: TAB, Q12H, Dosing Weight 50, kg, Start date: 06/22/17 21:00:00 CDT, Duration: 60 day, Stop date: 08/21/17 9:00:00 MICROBIOLOGY LAB ANALYST Notes: (Same as: Lopressor) Start Date: 06/22/17 Stop Date: 06/30/17 Status: DiscontinuedLopressor 12.5 mg, 0.5 tab, Route: PEG, Drug form: TAB, Q12H, Dosing Weight 50, kg, Start date: 06/17/17 21:00:00 CDT, Duration: 60 day, Stop date: 08/16/17 9:00:00 MICROBIOLOGY LAB ANALYST Notes: (Same as: Lopressor) Start Date: 06/17/17 Stop Date: 06/22/17 Status: DiscontinuedLopressor 25 mg, 1 tab, Route: PEG, Drug form: TAB, Q12H, Dosing Weight 50, kg, Start date : 06/11/17 21:00:00 CDT, Duration: 60 day, Stop date: 08/10/17 9:00:00 MICROBIOLOGY LAB ANALYST Notes: (Same as: Lopressor) Start Date: 06/11/17 Stop Date: 06/17/17 Status: DiscontinuedLORazepam 1 mg, 1 tab, Route: PO, Drug form: TAB, Bedtime, Dosing Weight 49.273, kg, Start date: 05/23/17 21:00:00 CDT, Duration: 30 day, Stop date: 06/21/17 21:00: 00 CDT Notes: (Same as: Ativan) Start Date: 05/23/17 Stop Date: 05/26/17 Status: Discontinuedlosartan 25 mg, 1 tab, Route: PEG, Drug form: TAB, Daily, Dosing Weight 50, kg, Start date: 05/18/17 8:30:00 CDT, Duration: 60 day, Stop date: 07/16/17 8:30:00 MICROBIOLOGY LAB ANALYST Notes: (Same as: Cozaar) Start Date: 05/18/17 Stop Date: 05/18/17 Status: Discontinuedlosartan 25 mg oral tablet 25 mg=1 tab, PEG, Daily, # 30 tab, 0 Refill(s) Start Date: 05/16/17 Stop Date: 06/29/17 Status: DiscontinuedLunesta 1 mg, 0.5 tab, Route: PO, Drug form: TAB, Bedtime, Dosing Weight 49.273, kg, Start date: 06/17/17 21:00:00 CDT, Stop date: 08/15/17 21:00:00 MICROBIOLOGY LAB ANALYST Notes: Same as Lunesta Non Formulary Item Start Date: 06/17/17 Stop Date: 06/30/17 Status: Discontinuedmelatonin 6 mg, 2 tab, Route: PEG, Drug form: TAB, Bedtime, Dosing Weight 50, kg, Start date: 05/17/17 18:05:00 CDT, Duration: 30 day, Stop date: 06/16/17 21:00:00 CDT Notes: (Same as: Melatonin) Start Date: 05/17/17 Stop Date: 05/23/17 Status: Discontinuedmelatonin 3 mg oral tablet 3 mg, 1 tab, Route: PO, Dosing Weight 49.273, kg, QPM, Start date: 05/25/17 18: 30:00 CDT, Duration: 30 day, Stop date: 06/23/17 18:30:00 CDT Start Date: 05/25/17 Stop Date: 05/25/17 Status: Canceledmelatonin 3 mg oral tablet 9 mg, 3 tab, Route: PO, Drug Form: TAB, Dosing Weight 49.273, kg, ONCE, NOW, Start date: 06/10/17 23:07:00 CDT, Stop date: 06/10/17 23:07:00 CDT Notes: (Same as: Melatonin) Start Date: 06/10/17 Stop Date: 06/10/17 Status: Completedmelatonin 3 mg oral tablet 3 mg, 1 tab, Route: PEG, Drug Form: TAB, Dosing Weight 49.273, kg, QPM, Start date: 05/25/17 18:30:00 CDT, Duration: 30 day, Stop date: 06/23/17 18:30:00 CDT Notes: (Same as: Melatonin) Start Date: 05/25/17 Stop Date: 06/02/17 Status: Discontinuedmelatonin 5 mg oral tablet 5 mg=1 tab, PEG, Bedtime, PRN for insomnia, # 60 tab, 0 Refill(s) Start Date: 05/16/17 Stop Date: 06/29/17 Status: Discontinuedmetoprolol tartrate 25 mg oral tablet 12.5 mg=0.5 tab, PEG, Q12H, # 30 tab, 1 Refill(s), Pharmacy: [id number] Start Date: 06/29/17 Status: Orderedmidazolam 5 mg, 1 mL, Route: IM, Drug form: SOLN, PRN, Dosing Weight 50, kg, PRN Seizure, Start date: 05/17/1718:09:00 CDT, Duration: 60 day, Stop date: 07/16/17 17:08: 00 MICROBIOLOGY LAB ANALYST Notes: (Same as: Versed)Max dose 5 mg for patients </=40 kg. 10 mg for patients > 40 kg Start Date: 05/17/17 Stop Date: 06/30/17 Status: Discontinuedmirtazapine 7.5 mg, 0.5 tab, Route: PEG, Drug form: TAB, Bedtime, Dosing Weight 49.273, kg, Start date: 06/06/1721:00:00 CDT, Duration: 30 day, Stop date: 07/05/17 21:00: 00 CDT Notes: (Same as:Remeron) Start Date: 06/06/17 Stop Date: 06/15/17 Status: Discontinuednystatin 500,000 unit, 5 mL, Route: Swab Mouth, Drug form: SUSP, TID, Dosing Weight 49.273, kg, Start date: 06/11/17 21:00:00 CDT, Duration: 14 day, Stop date: 13:00:00 CDT Start Date: 06/11/17 Stop Date: 06/13/17 Status: Voided With Resultsnystatin 100,000 units/mL oral suspension 500,000 unit, 5 mL, Route: Swab Mouth, Drug form: SUSP, TID, Dosing Weight 49.273, kg, Start date: 05/18/17 21:00:00 CDT, Duration: 30 day, Stop date: 08/21 13:00:00 MICROBIOLOGY LAB ANALYST Notes: (Same as:Mycostatin) Shake well. Start Date: 05/18/17 Stop Date: 06/16/17 Status: Discontinuedomeprazole 40 mg, Route: PEG, Drug form: DRC, Daily, Dosing Weight 50, kg, Start date: 8:30:00 CDT, Duration: 30 day, Stop date: 06/16/17 8:30:00 CDT Start Date: 05/18/17 Stop Date: 05/17/17 Status: Deletedomeprazole 40 mg oral delayed release capsule 40 mg=1 cap, PEG, Daily, # 30 cap, 0 Refill(s) Start Date: 05/16/17 Stop Date: 06/29/17 Status: DiscontinuedOmnipaque 350mg/ml 100 mL, Route: IVP, Drug Form: SOLN, Dosing Weight 49.273, kg, ONCALL, STAT, Start date: 05/25/17 10:26:00 CDT, Duration: 1 doses or times, Dose=2.2ml/kg, Max lbrt=998ha -- "To be infused by RadiologyStaff ONLY" Notes: (same as:Omnipaque 350).WASTE: F/P - Black; E - Municipal Trash Bin Start Date: 05/25/17 Stop Date: 05/25/17 Status: Completedpolyethylene glycol 3350 17 gm, 1 pkt, Route: PO, Drug form: PWDR, Daily, Dosing Weight 50, kg, PRN Constipation, Start date:05/17/17 21:57:00 CDT, Duration: 30 day, Stop date: 08/21 21:56:00 CDT Notes: Dissolve in 8 oz of water or juice.(Same as: Miralax) Start Date: 05/17/17 Stop Date: 06/09/17 Status: Discontinuedpotassium phosphate 1,000 mg, PEG, Q12H, 0 Refill(s) Start Date: 05/16/17 Stop Date: 06/29/17 Status: Discontinuedpotassium phosphate 1,000 mg, Route: PEG, Q12H, Dosing Weight 50, kg, Start date: 05/17/17 21:00:00 CDT, Duration: 30 day, Stop date: 06/16/17 9:00:00 CDT Start Date: 05/17/17 Stop Date: 05/17/17 Status: DiscontinuedPrevacid 30 mg, 10 mL, Route: PEG, Drug form: SUSP, Before Breakfast, Start date: 7:00:00 CDT, Duration: 60 day, Stop date: 08/15/17 7:00:00 MICROBIOLOGY LAB ANALYST Notes: Take 1 hour before or 2 hours after meal; Expires in 14 days. Shake well before use. (Same as:Prevacid) Compounded Product - formulation not commercially available Start Date: 05/18/17 Stop Date: 06/16/17 Status: Discontinuedramelteon 8 mg, Route: PEG, Bedtime, Dosing Weight 49.273, kg, Start date: 06/02/17 21:00: 00 CDT, Duration: 30day, Stop date: 07/01/17 21:00:00 CDT Start Date: 06/02/17 Stop Date: 06/02/17 Status: Canceledramelteon 8 mg, 1 tab, Route: PEG, Drug form: TAB, Bedtime, Dosing Weight 49.273, kg, Start date: 06/02/17 20:00:00 CDT, Duration: 60 day, Stop date: 07/31/17 20:00: 00 MICROBIOLOGY LAB ANALYST Notes: (Same as Rozerem) Start Date: 06/02/17 Stop Date: 06/06/17 Status: DiscontinuedSaline Flush 0.9% 10 mL, Route: IVP, Drug Form: INJ, Dosing Weight 49.273, kg, PRN, PRN Line Flush , Start date: 05/26/17 16:01:00 CDT, Duration: 30 day, Stop date: 07/25/17 15:00 :00 MICROBIOLOGY LAB ANALYST Notes: (Same as: BD Posiflush) Start Date: 05/26/17 Stop Date: 06/30/17 Status: DiscontinuedSaline Flush 0.9% 20 mL, Route: IVP, Drug Form: INJ, Dosing Weight 49.273, kg, Q8H, Start date: 0:00:00 CDT, Duration: 30 day, Stop date: 06/25/17 16:00:00 CDT Notes: (Same as: BD Posiflush) Start Date: 05/27/17 Stop Date: 06/16/17 Status: DiscontinuedSaline Flush 0.9% 10 mL, Route: IVP, Drug Form: INJ, Dosing Weight 50, kg, PRN, PRN Line Flush, Start date: 05/17/17 18:09:00 CDT, Duration: 60 day, Stop date: 07/16/17 17:08: 00 MICROBIOLOGY LAB ANALYST Notes: (Same as: BD Posiflush) Start Date: 05/17/17 Stop Date: 06/08/17 Status: DiscontinuedSantyl 1 appl, Route: TOP, Daily, Drug form: OINT, Start date: 05/20/17 8:30:00 CDT, Duration: 30 day, Stopdate: 07/18/17 8:30:00 MICROBIOLOGY LAB ANALYST Notes: (Same As: Santyl) Start Date: 05/20/17 Stop Date: 06/30/17 Status: Discontinuedsodium chloride 0.9% 500 ml INJ 500 mL 500 mL, Rate: 999 ml/hr, Infuse over: 0.5 hr, Route: IV, Dosing Weight 49.273 kg , Total Volume: 500,Start date: 05/24/17 9:05:00 CDT, Duration: 1 doses or times , Stop date: 05/24/17 9:34:00 CDT Start Date: 05/24/17 Stop Date: 05/24/17 Status: Completedsodium chloride 0.9% 500 ml INJ 500 mL 500 mL, Rate: 999 ml/hr, Infuse over: 0.5 hr, Route: IV, Dosing Weight 49.273 kg , Total Volume: 500,Start date: 05/22/17 19:34:00 CDT, Duration: 1 hr, Stop date : 05/22/17 20:33:00 CDT Start Date: 05/22/17 Stop Date: 05/22/17 Status: Completedsterile water 2.2 mL, Route: MISC, Drug Form: INJ, ONCE, Start date: 05/27/17 18:18:00 CDT, Stop date: 05/27/17 18:18:00 CDT Start Date: 05/27/17 Stop Date: 05/27/17 Status: Completedsterile water 20 mL, Route: MISC, Drug Form: INJ, ONCE, Start date: 06/21/17 2:25:00 CDT, Stop date: 06/21/17 2:25:00 CDT Start Date: 06/21/17 Stop Date: 06/21/17 Status: CompletedSynthroid 75 microgram, 1 tab, Route: PO, Drug form: TAB, Q630AM, Start date: 06/14/17 6: 30:00 CDT, Duration: 30 day, Stop date: 07/13/17 6:30:00 MICROBIOLOGY LAB ANALYST Notes: Take 1 hour before or 2 hours after meal; Enteral feeds may interefere with the absorption ofthis medication. (Same as:Synthroid, Levothroid) Start Date: 06/14/17 Stop Date: 06/13/17 Status: Canceledtobramycin 300 mg, 5 mL, Route: NEB, Drug form: SOLN, TRQ12H, Dosing Weight 49.273, kg, Start date: 05/26/17 10:18:00 CDT, Duration: 14 day, Stop date: 06/09/17 7:30: 00 CDT Notes: TIME CRITICAL MEDICATION(Same As: Sg) Start Date: 05/26/17 Stop Date: 06/09/17 Status: Completedtrazodone 50 mg oral tablet 50 mg, 1 tab, Route: PO, Drug form: TAB, Bedtime, Dosing Weight 49.273, kg, Start date: 05/19/17 20:22:00 CDT, Duration: 60 day, Stop date: 07/18/17 21:00: 00 MICROBIOLOGY LAB ANALYST Notes: (Same As: Desyrel) Start Date: 05/19/17 Stop Date: 06/01/17 Status: Discontinuedvancomycin + sodium chloride 0.9% 250 mL INJ (for IV set) 250 mL 750 mg, Route: IVPB, [id number], Dosing Weight 49.273, kg, Start date: 05/25/17 18: 00:00 CDT, Duration:5 day, Stop date: 05/30/17 6:00:00 CDT, ABX Indication: Pneumonia Notes: TIME CRITICAL MEDICATION(Same As: Vancocin)Infusion rate< 1000 mg: infuse over 1 [id number] - 1500 mg: infuse over 1.5 [id number] - 2000 mg: infuse over 2 hours> 2001 mg: infuse over 2.5 hours MEDICATION WASTE Product Size: 1000 mgProduct Wasted: ___ mg Start Date: 05/25/17 Stop Date: 05/27/17 Status: Discontinuedvancomycin + sodium chloride 0.9% INJ 250 mL 1 gm, Route: IVPB, Q12H, Dosing Weight 49.273, kg, Start date: 05/22/17 21:00: 00 CDT, Duration: 7 day, Stop date: 05/29/17 9:00:00 CDT, ABX Indication: Pneumonia Notes: TIME CRITICAL MEDICATION(Same As: Vancocin)Infusion rate< 1000 mg: infuse over 1 [id number] - 1500 mg: infuse over 1.5 [id number] - 2000 mg: infuse over 2 hours> 2001 mg: infuse over 2.5 hours MEDICATION WASTE Product Size: 1000 mgProduct Wasted: ___ mg Start Date: 05/22/17 Stop Date: 05/24/17 Status: Discontinuedvancomycin + sodium chloride 0.9% INJ 250 mL 1,000 mg, Route: IVPB, [id number], Dosing Weight 49.273, kg, Start date: 05/27/17 18:00:00 CDT, Duration: 7 day, Stop date: 06/03/17 6:00:00 CDT, ABX Indication: Pneumonia Notes: TIME CRITICAL MEDICATION(Same As: Vancocin)Infusion rate< 1000 mg: infuse over 1 [id number] - 1500 mg: infuse over 1.5 [id number] - 2000 mg: infuse over 2 hours> 2001 mg: infuse over 2.5 hours MEDICATION WASTE Product Size: 1000 mgProduct Wasted: ___ mg Start Date: 05/27/17 Stop Date: 06/03/17 Status: Completedvancomycin + sodium chloride 0.9% INJ 250 mL 1 gm, Route: IVPB, Q12H, Dosing Weight 50, kg, Start date: 05/17/17 21:00:00 CDT , Duration: 3 day, Stop date: 05/20/17 9:00:00 CDT, ABX Indication: Pneumonia Notes: TIME CRITICAL MEDICATION(Same As: Vancocin)Infusion rate< 1000 mg: infuse over 1 [id number] - 1500 mg: infuse over 1.5 [id number] - 2000 mg: infuse over 2 hours> 2001 mg: infuse over 2.5 hours MEDICATION WASTE Product Size: 1000 mgProduct Wasted: ___ mg Start Date: 05/17/17 Stop Date: 05/20/17 Status: Completedvancomycin + sodium chloride 0.9% INJ 250 mL 1,000 mg, Route: IVPB, [id number], Dosing Weight 49.273, kg, Start date: 05/24/17 18:00:00 CDT, Duration: 7 day, Stop date: 05/31/17 6:00:00 CDT, ABX Indication: Bacteremia Notes: TIME CRITICAL MEDICATION(Same As: Vancocin)Infusion rate< 1000 mg: infuse over 1 [id number] - 1500 mg: infuse over 1.5 [id number] - 2000 mg: infuse over 2 hours> 2001 mg: infuse over 2.5 hours MEDICATION WASTE Product Size: 1000 mgProduct Wasted: ___ mg Start Date: 05/24/17 Stop Date: 05/24/17 Status: Discontinuedvancomycin 1 g intravenous injection 1 gm, IVPB, Q12H, # 20 doses or times, 0 Refill(s) Start Date: 05/16/17 Stop Date: 06/29/17 Status: DiscontinuedZofran 4 mg, 2 mL, Route: IVP, Drug form: INJ, Q8H, Dosing Weight 49.273, kg, PRN Nausea, Start date: 06/08/17 23:01:00 CDT, Duration: 30 day, Stop date: 23:00:00 CDT Notes: (Same as: Zofran) MEDICATION WASTE Product Size: 4 mgProduct Wasted: ___ mg Start Date: 06/08/17 Stop Date: 06/09/17 Status: DiscontinuedZofran 4 mg/5 mL oral solution 4 mg, 1 tab, Route: PO, Drug form: TAB, Q8H, Dosing Weight 49.273, kg, PRN Nausea, Start date: 06/10/17 23:11:00 CDT, Duration: 4 day, Stop date: 06/14/17 23:10:00 CDT Notes: (Same as: Zofran) Start Date: 06/10/17 Stop Date: 06/14/17 Status: Completed Results ELECTROLYTES Most recent to oldest 1 2 3 [Reference Range]: Sodium Lvl [135-145 mEq/L] 140 mEq/L 139 mEq/L 141 mEq/L (06/27/17 5:27 AM) (06/20/17 5:32 AM) (06/18/17 5:52 AM) Potassium Lvl [3.5-5.1 4.2 mEq/L 4.3 mEq/L 4.5 mEq/L mEq/L] (06/27/17 5:27 AM) (06/20/17 5:32 AM) (06/18/17 5:52 AM) Chloride Lvl [95-109 mEq/L] 102 mEq/L 102 mEq/L 105 mEq/L (06/27/17 5:27 AM) (06/20/17 5:32 AM) (06/18/17 5:52 AM) CO2 [24-32 mEq/L] 29 mEq/L 27 mEq/L 30 mEq/L (06/27/17 5:27 AM) (06/20/17 5:32 AM) (06/18/17 5:52 AM) AGAP [10.0-20.0 mEq/L] 13.2 mEq/L 14.3 mEq/L 10.5 mEq/L (06/27/17 5:27 AM) (06/20/17 5:32 AM) (06/18/17 5:52 AM) CHEM PANEL Most recent to oldest 1 2 3 [Reference Range]: Creatinine Lvl [0.50-1.40 0.46 mg/dL 0.45 mg/dL 0.45 mg/dL mg/dL] *LOW* *LOW* *LOW* (06/27/17 5:27 AM) (06/20/17 5:32 AM) (06/18/17 5:52 AM) eGFR 114 mL/min/1.73m2 1 115 mL/min/1.73m2 2 115 mL/min/1.73m2 3 *NA* *NA* *NA* (06/27/17 5:27 AM) (06/20/17 5:32 AM) (06/18/17 5:52 AM) BUN [7-22 mg/dL] 21 mg/dL 23 mg/dL 22 mg/dL (06/27/17 5:27 AM) *HI* (06/18/17 5:52 AM) (06/20/17 5:32 AM) B/C Ratio [6-25] 36 46 *HI* *HI* (06/10/17 9:16 PM) (05/18/17 5:41 AM) Glucose Lvl [70-99 mg/dL] 84 mg/dL 83 mg/dL 79 mg/dL (06/27/17 5:27 AM) (06/20/17 5:32 AM) (06/18/17 5:52 AM) Total Protein [6.4-8.4 g/dL] 8.0 g/dL 7.7 g/dL (06/10/17 9:16 PM) (05/18/17 5:41 AM) Albumin Lvl [3.5-5.0 g/dL] 2.8 g/dL 2.7 g/dL *LOW* *LOW* (06/10/17 9:16 PM) (05/18/17 5:41 AM) Globulin [2.7-4.2 g/dL] 5.2 g/dL 5.0 g/dL *HI* *HI* (06/10/17 9:16 PM) (05/18/17 5:41 AM) A/G Ratio [0.7-1.6] 0.5 0.5 *LOW* *LOW* (06/10/17 9:16 PM) (05/18/17 5:41 AM) Calcium Lvl [8.5-10.5 mg/dL] 9.9 mg/dL 10.0 mg/dL 9.7 mg/dL (06/27/17 5:27 AM) (06/20/17 5:32 AM) (06/18/17 5:52 AM) Phosphorus [2.5-4.5 mg/dL] 3.2 mg/dL 3.5 mg/dL 3.4 mg/dL (06/27/17 5:27 AM) (06/20/17 5:32 AM) (06/13/17 5:47 AM) Magnesium Lvl [1.8-2.4 mg/dL] 2.1 mg/dL 2.0 mg/dL 2.1 mg/dL (06/27/17 5:27 AM) (06/20/17 5:32 AM) (06/13/17 5:47 AM) ALT [0-65 unit/L] 38 unit/L 27 unit/L (06/10/17 9:16 PM) (05/18/17 5:41 AM) AST [0-37 unit/L] 32 unit/L 14 unit/L (06/10/17 9:16 PM) (05/18/17 5:41 AM) Alk Phos [39-136 unit/L] 132 unit/L 91 unit/L (06/10/17 9:16 PM) (05/18/17 5:41 AM) Bili Total [0.2-1.3 mg/dL] 0.5 mg/dL 0.3 mg/dL (06/10/17 9:16 PM) (05/18/17 5:41 AM) Procalcitonin Lvl [0.00-0.10 <0.05 ng/mL 0.15 ng/mL <0.05 ng/mL ng/mL] (06/18/17 5:52 AM) *HI* (05/24/17 5:52 AM) (05/25/17 5:30 AM) Vitamin D, 25-OH, Total 42.2 ng/mL 36.7 ng/mL [30.0-100.0 ng/mL] (05/23/17 5:30 AM) (05/20/17 5:16 AM) 1Result Comment: The eGFR is calculated [...] eGFR should be multiplied by the estimated BMI.LIPIDS Most recent to oldest [Reference Range]: 1 2 3 CHD Risk [3.90-5.80] 2.56 *LOW* (05/23/17 5:30 AM) Chol [<=199 mg/dL] 128 mg/dL (05/23/17 5:30 AM) Trig [<=149 mg/dL] 110 mg/dL (05/23/17 5:30 AM) HDL [>=61 mg/dL] 50 mg/dL *LOW* (05/23/17 5:30 AM) LDL (Calculated) [<=99 mg/dL] 56 mg/dL (05/23/17 5:30 AM) VLDL 22 *NA* (05/23/17 5:30 AM) ANEMIA STUDY Most recent to oldest [Reference Range]: 1 2 3 Iron [30-160 ug/dl] 32 ug/dl (06/13/17 5:47 AM) Ferritin Lvl [5-204 ng/mL] 126 ng/mL (06/13/17 5:47 AM) % Satur Fe [12-57 %] 11 % *LOW* (06/13/17 5:47 AM) UIBC [110-370 ug/dl] 263 ug/dl (06/13/17 5:47 AM) Vitamin B12 Lvl [254-1320 pg/mL] 1502 pg/mL *HI* (05/20/17 5:16 AM) Folate Lvl [>=3.0 ng/mL] 24.3 ng/mL (05/20/17 5:16 AM) TIBC [228-428 ug/dl] 295 ug/dl (06/13/17 5:47 AM) TOXICOLOGY Most recent to oldest 1 2 3 [Reference Range]: Vanco Tr TND 0530hr 0600 0530 *NA* *NA* *NA* (06/03/17 5:37 AM) (06/01/17 6:17 AM) (05/30/17 5:15 AM) Vanco Tr 20.6 ug/ml 20.4 ug/ml 19.1 ug/ml *NA* *NA* *NA* (06/03/17 5:37 AM) (06/01/17 6:17 AM) (05/30/17 5:15 AM) ENDOCRINOLOGY Most recent to oldest [Reference Range]: 1 2 3 Prolactin Lvl 20.5 ng/mL *NA* (06/10/17 9:16 PM) URINE AND STOOL Most recent to oldest 1 2 3 [Reference Range]: UA Turbidity [Clear] Cloudy Clear Clear *ABN* (06/17/17 4:16 PM) (06/10/17 9:18 PM) (06/28/17 12:56 PM) UA Color [Yellow] Yellow Yellow Yellow *NA* *NA* *NA* (06/28/17 12:56 PM) (06/17/17 4:16 PM) (06/10/17 9:18 PM) UA pH [5.0-8.0] 7.5 (06/28/17 12:56 PM) UA pH [5.0-8.0] 7.5 7.0 (06/17/17 4:16 PM) (06/10/17 9:18 PM) UA Spec Grav [<=1.030] 1.020 (06/28/17 12:56 PM) UA Spec Grav [<=1.030] 1.014 1.015 (06/17/17 4:16 PM) (06/10/17 9:18 PM) UA Glucose [Negative] Negative (06/28/17 12:56 PM) UA Glucose [Negative Negative mg/dL Negative mg/dL mg/dL] *NA* *NA* (06/17/17 4:16 PM) (06/10/17 9:18 PM) UA Blood [Negative] Moderate Negative Negative *ABN* (06/17/17 4:16 PM) (06/10/17 9:18 PM) (06/28/17 12:56 PM) UA Ketones [Negative] Negative *NA* (06/28/17 12:56 PM) UA Ketones [Negative Negative mg/dL Negative mg/dL mg/dL] *NA* *NA* (06/17/17 4:16 PM) (06/10/17 9:18 PM) UA Protein [Negative] Trace *ABN* (06/28/17 12:56 PM) UA Protein [Negative Negative mg/dL 20 mg/dL mg/dL] (06/17/17 4:16 PM) *ABN* (06/10/17 9:18 PM) UA Urobilinogen [0.1-1.0 0.2 EU/dL EU/dL] (06/28/17 12:56 PM) UA Urobilinogen [0.1-1.0 2.0 mg/dL <=1.0 mg/dL mg/dL] *HI* *NA* (06/17/17 4:16 PM) (06/10/17 9:18 PM) UA Bili [Negative] Negative Negative Negative *NA* *NA* *NA* (06/28/17 12:56 PM) (06/17/17 4:16 PM) (06/10/17 9:18 PM) UA Leuk Est [Negative] Trace Small Negative *ABN* *ABN* (06/10/17 9:18 PM) (06/28/17 12:56 PM) (06/17/17 4:16 PM) UA Nitrite [Negative] Negative Negative Negative (06/28/17 12:56 PM) (06/17/17 4:16 PM) (06/10/17 9:18 PM) UA WBC [None Seen /HPF] 3-5 /HPF (06/28/17 12:56 PM) UA WBC [0-5 /HPF] 9 /HPF 3 /HPF *HI* (06/10/17 9:18 PM) (06/17/17 4:16 PM) UA RBC [0-2 /HPF] 3-5 /HPF 2 /HPF 11 /HPF *ABN* (06/17/17 4:16 PM) *HI* (06/28/17 12:56 PM) (06/10/17 9:18 PM) UA Bacteria [None Seen Occasional /HPF Occasional /HPF /HPF] (06/28/17 12:56 PM) *NA* (06/17/17 4:16 PM) UA Sq Epi [Few /LPF] Moderate /LPF *ABN* (06/28/17 12:56 PM) UA Sq Epi None Seen None Seen *NA* *NA* (06/17/17 4:16 PM) (06/10/17 9:18 PM) UA CaOx [place] [None Seen Occasional /HPF /HPF] (06/28/17 12:56 PM) UA Uric Ac [place]nn [None Occasional /HPF Seen /HPF] *NA* (05/21/17 3:47 PM) UA Amorph Kay[place]nn [None Seen Occasional /HPF /HPF] *ABN* (06/28/17 12:56 PM) UA Renal Epi [None Seen 0-2 /LPF /LPF] *ABN* (06/28/17 12:56 PM) UA Renal Epi [<=0] RARE *NA* (05/21/17 3:47 PM) UA Mucus [None Seen] None Seen (06/28/17 12:56 PM) UA Mucus [None Seen /LPF] Few /LPF Few /LPF *NA* *NA* (06/10/17 9:18 PM) (05/24/17 3:19 PM) UA [place] Yeast [None Seen Occasional /HPF Occasional /HPF /HPF] *ABN* *ABN* (05/21/17 3:47 PM) (05/18/17 5:41 AM) UA Trans Epi 0-2 *ABN* (06/28/17 12:56 PM) IMMUNOLOGY Most recent to oldest 1 2 3 [Reference Range]: Prealbumin [18.0-45.0 mg/dL] 26.2 mg/dL 26.7 mg/dL 31.4 mg/dL (05/20/17 5:16 AM) (05/20/17 5:16 AM) (05/18/17 5:41 AM) HEMATOLOGY Most recent to oldest 1 2 3 [Reference Range]: WBC [3.7-10.4 K/CMM] 7.9 K/CMM 7.9 K/CMM 6.2 K/CMM (06/27/17 5:27 AM) (06/18/17 5:52 AM) (06/15/17 5:18 AM) RBC [4.20-5.40 M/CMM] 3.93 M/CMM 3.77 M/CMM 3.72 M/CMM *LOW* *LOW* *LOW* (06/27/17 5:27 AM) (06/18/17 5:52 AM) (06/15/17 5:18 AM) Hgb [12.0-16.0 g/dL] 12.4 g/dL 12.1 g/dL 11.6 g/dL (06/27/17 5:27 AM) (06/18/17 5:52 AM) *LOW* (06/15/17 5:18 AM) Hct [36.0-48.0 %] 38.1 % 36.8 % 35.8 % (06/27/17 5:27 AM) (06/18/17 5:52 AM) *LOW* (06/15/17 5:18 AM) MCV [80.0-98.0 fL] 97.0 fL 97.8 fL 96.1 fL (06/27/17 5:27 AM) (06/18/17 5:52 AM) (06/15/17:18 AM) MCH [27.0-31.0 pg] 31.6 pg 32.3 pg 31.1 pg *HI* *HI* *HI* (06/27/17 5:27 AM) (06/18/17 5:52 AM) (06/15/17:18 AM) MCHC [32.0-36.0 g/dL] 32.5 g/dL 33.0 g/dL 32.4 g/dL (06/27/17 5:27 AM) (06/18/17 5:52 AM) (06/15/17:18 AM) RDW [11.5-14.5 %] 14.8 % 16.9 % 16.6 % *HI* *HI* *HI* (06/27/17 5:27 AM) (06/18/17 5:52 AM) (06/15/17:18 AM) Platelet [133-450 K/CMM] 289 K/CMM 260 K/CMM 209 K/CMM (06/27/17 5:27 AM) (06/18/17 5:52 AM) (06/15/17:18 AM) MPV [7.4-10.4 fL] 9.5 fL 10.2 fL 10.4 fL (06/27/17 5:27 AM) (06/18/17 5:52 AM) (06/15/17:18 AM) Segs [45.0-75.0 %] 59.2 % 54.7 % 51.5 % (06/27/17 5:27 AM) (06/18/17 5:52 AM) (06/15/17:18 AM) Lymphocytes [20.0-40.0 %] 29.2 % 31.7 % 34.5 % (06/27/17 5:27 AM) (06/18/17 5:52 AM) (06/15/17:18 AM) Monocytes [2.0-12.0 %] 7.5 % 8.7 % 10.2 % (06/27/17 5:27 AM) (06/18/17 5:52 AM) (06/15/17 5:18 AM) Eosinophils [0.0-4.0 %] 4.1 % 4.1 % 3.5 % *HI* *HI* (06/15/17 5:18 AM) (06/27/17 5:27 AM) (06/18/17 5:52 AM) Basophils [0.0-1.0 %] 0.0 % 0.8 % 0.3 % (06/27/17 5:27 AM) (06/18/17 5:52 AM) (06/15/17 5:18 AM) Segs-Bands # [1.5-8.1 4.7 K/CMM 4.3 K/CMM 3.3 K/CMM K/CMM] (06/27/17 5:27 AM) (06/18/17 5:52 AM) (06/15/17 5:18 AM) Lymphocytes # [1.0-5.5 2.3 K/CMM 2.5 K/CMM 2.1 K/CMM K/CMM] (06/27/17 5:27 AM) (06/18/17 5:52 AM) (06/15/17 5:18 AM) Monocytes # [0.0-0.8 K/CMM] 0.6 K/CMM 0.7 K/CMM 0.6 K/CMM (06/27/17 5:27 AM) (06/18/17 5:52 AM) (06/15/17 5:18 AM) Eosinophils # [0.0-0.5 0.3 K/CMM 0.3 K/CMM 0.2 K/CMM K/CMM] (06/27/17 5:27 AM) (06/18/17 5:52 AM) (06/15/17 5:18 AM) Basophils # [0.0-0.2 K/CMM] 0.0 K/CMM 0.1 K/CMM 0.0 K/CMM (06/27/17 5:27 AM) (06/18/17 5:52 AM) (06/15/17 5:18 AM) Anisocyte [None Seen] 1+ *ABN* (05/22/17 4:32 AM) Macrocyte [None Seen] 1+ *ABN* (06/10/17 9:16 PM) Plt Morph Normal (05/23/17 5:30 AM) Immunizations Given and Recorded Vaccine Date Status [...] Exercise Assessment and Plan Extracted from: Title: PM&R Author: Malcom Alberts MD Date: 06/30/17 DISCHARGE SUMMARY ADMISSION DATE: 05/17/17 DISCHARGE DATE: 06/30/17 ADMISSION DIAGNOSIS: Nontraumatic intracerebral hemorrhage in cortical hemisphere DISCHARGE DIAGNOSIS: Nontraumatic intracerebral hemorrhage in cortical hemisphere ATTENDING PHYSICIAN: Dr. Douglas CONSULTING PHYSICIANS: Consulting Physicians: Juan Douglas MD Office: Service: Physical Medicine/ Rehabilitation Jia Rock MD Office: Service: Endocrinology Harry Lewis MD Office: Service: Medicine Angeles Haque MD Office: Service: Neurology, Medicine Phani Law MD Office: Service: Physical Medicine/ Rehabilitation BRIEF SUMMARY OF PRESENT ILLNESS: Ms. Jd Cole is a 52yo female with PMH significant for HTN, HLD, hypothyroidism, and seizure disorder who was admitted to [facility] on 01/25/17 for headaches. Patient has hx of L EDEN and MCA aneurysm s/p clipping (01/21/16), bifrontal craniotomy (01/30/17), and endoscopic evaluation ( 02/09/17) for presumed CSF leak. CT brain in ED revealed pneumocephalus without obvious source of leak. Patient was at neurol ogical baseline, serial CT head remained stable, and LP was negative for infection. Daughter and patient wished to receive further medical care at [facility], so patient was discharge. Patient w as admitted into [facility] with fevers, AMS, and SOB. CT chest showed PE and PNA. She was intubated for respiratory failure and given lovenox, with resulting ICH. NSGY performed craniotomy and resection of AVM/evacuation of hematoma. Due to her persistent hydrocephalus post op, VPS was placed. S/p trach and PEG. Patient was transferred to [place] on 02/23 and now being admitted to [facility] on 05/17 for acute IPR to improve functional independence. Ms. Cole was seen with no family members at bedside. She had a trach in place and remained quite hypophonic without a PMV valve, but she was awake, alert, and able to answer simple questions. She repo rted that she remained weak on the right side compared to the left and that she sometimes still had issues with shortness of breath. She endorsed that her secretions from trach are minimal not requiring much suction. She denied issues with pain, muscle spasms, skin breakdown, or difficulty with appetite. She endorsed that she has been able to eat a regular diet with no difficulty swallowing, but this was inconsistent with recent reports. She was incontinent of bowel and bladder and currently has a mason catheter in place. PERTINENT PAST HISTORY: PMH: 1. Hypertension. 2 . Hypothyroidism. 3. History of prior cerebral aneurysm. 4. Arteriovenous mal formation. 5. Hydrocephal us, status post STAGE MANAGER shunt. 6. Reflux disease. 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 8. Hyperlipidemia. 9. Seizure disorder. PSH: Back surgery, craniotomy, STAGE MANAGER shunt placement, tracheotomy and PEG tube placement, and hysterectomy. 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 The patient resides with her 12 granddaughter in [place]. She was over 10 years ago and is not currently in a romantic relationship. She has 3 children. The patient attended 1 year of college. She denied ever repeating a grade or any evidence of a learning disability. 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 The patient is [employer]ism. In terms of pleasurable activities, the patient enjoys spending time with her girlfriends. She reports drinking once every few months. She also reports an off and on history of tobacco use since age 17. Per patient, she had not smoked 3 w eeks prior to her hospitalization. She denied any exposure to illicit drugs. Family History: Father: HTN. Otherwise denies family history of DM, seizures, cancer. Allergies: Allergies: promethazine, Phenergan(Phenergan) HOSPITAL COURSE: ASSESSMENT: 52 year old female s/p nontraumatic ICH due to a ruptured AVM on 01/19/16. She experienced significant functional deficits at that time, admitted to [facility] and eventually made very good progress. She then experienced a variety of new medical complications starting in January 2017 with new nontraumatic ICH and hydrocephalus s/p STAGE MANAGER shunt. She was noted to have significant worsening of her previous baseline fun ctional status for which she was admitted to acute inpatient rehabilitation. Ms. Cole was noted to have many myoclonic like jerks, movements, periods of hypoarousal, and insomnia during her admission. For sleep, she was trialed on Melatonin, Trazodone, Ativan, Ambien, Ramelte on, and Mirtazapine without significant benefit. However, on 06/17 she was started on Lunesta with subsequent increase in night time sleep eventually getting 7-8 hours of sleep every night. She was star terrell on amantadine with titration of dose to 100 mg BID to improve arousal. Additionally, patient was found to have high T4 levels with low TSH levels indicating her thyroid medications were too high. Th is finding likely contributed greatly to patient's insomnia, arousal, myoclonic like movements, and tachycardia. Liothyronine was discontinued and Synthroid was held for several days before being restar terrell at a lower dose. Patient's sleep, arousal, and myoclonic like movements greatly improved. Patient was decanulated on 06/27 without issue and tolerated decanulation during the rest of her admission. PLAN: Nontraumatic ICH: - From AVM rupture in January 2016 and again in January 2017. - Continue Keppra 750 mg BID for seizure prophylaxis. - Repeat CT head performed on 05/25/17, no acute changes or hydrocephalus. - Stable neuro status. Cognitive deficits: - Patient with significant cognitive deficits due to nontraumatic ICH and hydrocephalus. - Continue therapies with RUCHING MACHINE OPERATOR. Neuropsych following as well. - Admitted on Amantadine for arousal. Continue for now. - Arousal remained suboptimal, so Amantadine increased to 150 mg BID on 05/31. Good response noted. Increased to 200 mg BID on 06/09. Equivocal reponse to higher dose. Daughter felt she was worse, so Rodrigo tadine weanewd back down to 100 mg BID. Daughter is happy with this dose. - Hyperthyroidism discovered (see below), likely contributing to cognitive deficits. TFTs now improving as is cognition. Insomnia: - Patient is noted to have long-standing sleep issues. - Multiple sleep meds trialed have been during this stay (Melatonin, Trazodone , Ativan, Ambien, Ramelteon, and Mirtazapine). None were helpful. - Lunesta added 06/17. Sleep now improved. - Suspect correcting her hyperthyroidism is helping sleep as well. - Continue to monitor sleep patterns. Mood disorder: - Patient with very restricted affect. Appears depressed versus apathetic. - Admitted on Fluoxetine. Continue for now, but consider stopping if motivation gets worse as SSRIs can worse apathy. - Mirtazapine added 06/06 for sleep and mood. Recieved only twice and the discontinued as patient's daughter refused. Spasticity: - Currently with increased tone/contracture in right ankle plantar flexors. - PT and OT to continue aggressive stretching, ROM exercises, bracing, splinting, casting and positioning as appropriate. Hemiplegia: - Right hemiplegia due to AVM rupture. - Continue aggressive rehabilitation program with PT and OT to work on strengthening and overall function. Dysphagia/Nutrition: - Patient NPO on admission, on bolus tubefeeds. - S/p PEG placement. PEG last changed on 02/15. - Continue intense therapies with RUCHING MACHINE OPERATOR to improve swallow function. - Ferryboat Pilot consulted. Prealbumin 31.4 - Daughter wants a jung-jain button. Not able to provide this at [facility]. Spoke in detail with daughter and she will attempt to get this as an outpatient. Acute respiratory failure/PNA: - s/p trach, changed to cuffless 6 shiley on 05/19 - continue suctioning and prn respiratory treatment - Chest CTA on 05/25/17 revealed no PE but worsening consoldiation of the right lower lobe concerning for pneumonia. - Sputum Cx grew MDR Pseudomonas and MRSA. Course of Vanc completed 06/03. Completed Cefepime and inhlaed Tobramycin (added 05/26) as per IM recs on 06/08 and 06/09, respectively. - Thick secretions persist. Guaifenesin added 06/02. - Start capping during the day time 06/09. Overall oxygen saturation is greater than 92%. Patient tolerating 28/03 capping with occasional suctioning required . - Sputum culture back and probable colonization (06/21). Afebrile and labs wnl. Will monitor closely. - Patient continues to require deep suctioning once per shift (06/22) due to thick secretions that she cannot clear orally. Mucomyst and Guaifenesin increased 06/22. - 06/24: RT to trial holding suctioning unless O2 desaturation or in respiratory distress over weekend. If secretions can start to be cleared orally with the above changes, we will consider decannuating in the coming days - Decanulated on 06/27 and oxygen saturations between 92-97%. No deep suctioning allowed. Having productive cough on 06/28. Continue to monitor. No clinical signs of infection. Daughter explained and we ll aware of risks and benefits associated with decanulation. Neurogenic bowel: - Patient on senna-docusate to facilitate regular BMs. - Monitor BMs closely. Goal 1BM/day. Neurogenic bladder: - Patient with bladder dysfunction as a result of AVM. - Discontinued mason catheter on 05/19. Trial timed voids, monitor PVRs, and cath for PVR greater than 200 mL. Essential HTN: - goal BP <140/90 - continue lopressor 50mg q12h - 06/12, metoprolol decreased to 25 mg q12 - 06/17, metoprolol decreased to 12.5 mg q12 - 06/22, holding parameters of Lopressor adjusted to hold for HR < 55 and SBP < 100 HLD: - Continue atorvastatin. - Lipids adequately controlled. Hypothyroidism: - continue synthroid - Abnormal TSH noted on 06/13. Endocrine consulted. HOUSING PROJECT MANAGER Molly notified and appreciate assistance. This could be causing the HTN, tachycardia, and altered mental state. - Endocrine recommendations appreciated 06/13. Held levothyroxine for 3 days, restarted on 06/17 at lower dose of 88 mcg. Discontinued liothyronine. - Repeat TFTs improving since the above med changes were made. Most recent free T4 is down to 1.05 (06/23). - Plan to repeat TFTs in the next 4-6 weeks. Pain: - Currently no reported issues - Tylenol prn for now - Continue to monitor pain closely. Wound: - Unstageable scapular wound present on admission with overlying eschar. - Wound care nurses following. - Continue Santyl. Wound is healing slowly but steadily. Prophylaxis: - DVT: Continue heparin. Mobilize as tolerated. - GI: discontinued Prevacid 06/16. Access: - RUE PICC placed 05/26 due to long course of IV Abx for PNA and overall high medical complexity. - Plan to remove PICC once the Abx are completed and her medical issues stabilize. - PICC removed 06/21 without issue. DISCHARGE FIM SCORES: PT Current Status PT Treatment Recommendations PT Treatment Recommendations: Pt is a good canidate for skilled inpatient physical therapy in order to improve above stated deficits including but not limited to decreased independence with functional m obility, decreased activity tolerance, and postural deficits. Performed: 05/18 09:05 Mobility Transfer Bed to and From Chair: Minimal contact assistance Performed: 08:13 Tub, Shower Transfer: Min A - 4 Performed: 06/28/17 08:13 Ambulation Level Surfaces Ambulation Device: Walker, rolling Performed: 06/28/17 08:13 Ambulation Distance: 200 ft Performed: 06/28/17 08:13 Ambulation Uneven Surfaces Locomotion Walk: Min A - 4 Performed: 06/28/17 08:13 Stairs Device: Bilateral rails Performed: 06/28/17 08:13 Number of Stairs Performed: 6 Performed: 06/28/17 08:13 Locomotion Stair: Max A - 2 Performed: 06/28/17 08:13 Bed,Chair,Wheelchair: Min A - 4 Performed: 06/28/17 08:13 Wheelchair Mobility Level Surfaces Wheelchair Mobility Level Distance: 150 ft Performed: 06/28/17 08:13 OT Current Status ADL Eating: Tot A - 1 Performed: 06/28/17 13:29 Grooming: Supvn/Setup - 5 Performed: 06/28/17 13:29 Bathing: Mod A - 3 Performed: 06/28/17 13:29 Upper Extremity Dressing: Min A - 4 Performed: 06/28/17 13:29 Lower Extremity Dressing: Mod A - 3 Performed: 06/28/17 13:29 Toileting: Tot A - 1 Performed: 06/30/17 10:41 Toilet Transfer: Min A - 4 Performed: 06/28/17 08:13 Tub Transfer: Min A - 4 Performed: 06/28/17 08:13 Shower Transfer: Mod A - 3 Performed: 06/22/17 03:26 RUCHING MACHINE OPERATOR Current Status Severity Level Comprehension: Minimal prompting - 4 Performed: 06/29/17 14:01 Comprehension Mode: Auditory Performed: 06/29/17 14:01 Expression: Minimal prompting - 4 Performed: 06/29/17 14:01 Expression Mode: Vocal Performed: 06/29/17 14:01 Memory: Moderate prompting - 3 Performed: 06/29/17 14:01 Problem Solving: Maximal prompting - 2 Performed: 06/29/17 14:01 Social Interaction: Maximal prompting - 2 Performed: 06/29/17 14:01 PROCEDURES PERFORMED DURING ADMISSION: none PHYSICAL EXAM (at time of discharge): Vitals Tmp(F) Pulse BP RR SpO2 FIO2 06/30 07:30 97.1 93 117/69 20 --- --- 06/29 22:27 ---- --- ----- -- 94 21% 06/29 19:30 97.7 102 124/65 18 --- --- 06/29 12:18 97.6 85 113/59 20 --- --- 06/29 07:00 98.0 100 106/54 20 --- --- 24 Hr Tmax: 97.7F (36.50c) at 06/29 19:30 Vital Signs are the last 5 in the past 48 hours. Physical Exam General: _ HEENT: _ Cardiovascular: _ Respiratory: _ Abdomen: _ Extremities: _ Integumentary: _ Neurologic: _ DISCHARGE MEDICATIONS: Discharge Medications eszopiclone 1 mg oral tablet :1 mg, 1 tab, PO, Bedtime, PRN: for insomnia, 30 tab, 1 Refill(s) Ordered by: Juan Douglas MD 06/29/2017 16:33 guaiFENesin 100 mg/5 mL oral liquid :400 mg, 20 mL, PEG, TID, 1800 mL, 1 Refill (s) Ordered by: Juan Douglas MD 06/29/2017 16:29 docusate-senna 50 mg-8.6 mg oral tablet :1 tab, PO, Daily, 30 tab, 1 Refill(s) Ordered by: Juan Douglas MD 06/29/2017 16:29 collagenase topical 250 units/g ointment :1 appl, TOP, Daily, 15 gm, 1 Refill(s ) Ordered by: Juan Douglas MD 06/29/2017 16:29 acetylcysteine 20% inhalation solution :400 mg, 2 mL, NEB, TID, 180 mL, 1 Refill(s) Ordered by: Juan Douglas MD 06/29/2017 16:29 metoprolol tartrate 25 mg oral tablet :12.5 mg, 0.5 tab, PEG, Q12H, 30 tab, 1 Refill(s) Ordered by: Juan Douglas MD 06/29/2017 16:28 levothyroxine 88 mcg (0.088 mg) oral tablet :88 microgram, 1 tab, PO, Q630AM, 30 tab, 1 Refill(s) Ordered by: Juan Douglas MD 06/29/2017 16:28 levETIRAcetam 100 mg/mL oral solution :750 mg, 7.5 mL, PEG, [id number]-91, 450 mL, 1 Refill(s) Ordered by: Juan Douglsa MD 06/29/2017 16:28 FLUoxetine 20 mg oral capsule :20 mg, 1 cap, PEG, Daily, 30 cap, 1 Refill(s) Ordered by: Juan Douglas MD 06/29/2017 16:28 cholecalciferol 2000 intl units oral tablet :2,000 IntlUnit, 1 tab, PEG, Daily , 30 tab, 1 Refill(s) Ordered by: Juan Douglas MD 06/29/2017 16:28 atorvastatin 40 mg oral tablet :40 mg, 1 tab, PO, Bedtime, 30 tab, 1 Refill(s) Ordered by: Juan Douglas MD - 06/29/2017 16:27 amantadine 50 mg/5 mL oral syrup :100 mg, 10 mL, PEG, BID--, 600 mL, 1 Refill(s) Ordered by: Juan Douglas MD - 06/29/2017 16:27 albuterol-ipratropium 2.5-0.5 mg inhalation solution :3 mL, NEB, TRTID, Handheld Nebulizer, 270 mL, 1 Refill(s) Ordered by: Juan Douglas MD - 06/29/2017 16:27 CONDITION OF PATIENT ON DISCHARGE: stable DISPOSITION/INSTRUCTIONS/FOLLOW UP: Discharge to: Helpful Information Prenatal Nurse: Prenatal Nurse: Spencer Cox [phone] Comments: Please call with any questions Casualty Claims Supervisor: Casualty Claims Supervisor: Aissatou Suarez [phone] Comments: Please call with any questions or concerns Follow up Care Provider: Juan Douglas, Physical Medicine/Rehabilitation Service Address: [address] [place] [id number] Comments: [phone] Other: [facility] Address: [address] [place] [id number] Other: Neurosurgery Comments: Please follow up as instructed Other: PCP Comments: Follow up in 1-2 weeks No follow up referral services info available Activity: No qualifying data available Diet: Tubefeed Bolus -- 06/23/17 12:52:00 CDT, 1.5 Fiber (Isosource 1.5), 250 mL (1 can), Other Frequency, Start at Goal Rate, Tubefeed 50% Rule Feed Additional Bolus @8pm and Midnight, Details Q4x5 Diet Dysphagia -- 06/20/17 16:21:00 CDT, Dysphagia Level Dysphagia-Mechanical ( ground), Liquid Consistency Thin Liquids Follow up Appointments: The discharge plan was reviewed and discussed with the patient/family and appropriate education and counseling was provided. They were given the opportunity to ask any questions which were answered to the best of my knowledge. Issues to address during [facility] follow up visit: (Pending tests/imaging, response to medications, consultations with other physicians, social/funding issues, etc) Extracted from: Title: PMR Author: Juan Douglas MD Date: 06/30/17 Progress Note - Daily [facility] [place] Completed: Jun, 15:18 by Juan Douglas MD RM: 601 - B, TR RPU6 JD COLE 52y (: 1965) F Attending: Juan Douglas MD Service: Therapy - Phys/Occ/Speech/Cardiac Reason for Admission: ICH Working DRG: None Documented Code status: Full Code [Ordered] Current diet: Isolation: None Documented Allergies: promethazine, Phenergan(Phenergan) SUBJECTIVE No overnight events reported. Patient with no new complaints. Appears to have had fair sleep overnight. The patient reports feeling well-rested. She denies pain. Denies increased cough or SOB. She repor ts feeling very well overall. She states she is very happy to be going home today. OBJECTIVE (no lab data in past 24 hours) Mason still necessary (Yes/No): Line still necessary (Yes/No): Vitals Tmp(F) Pulse BP RR SpO2 FIO2 06/30 07:30 97.1 93 117/69 20 --- --- 06/29 22:27 ---- --- ----- -- 94 21% 06/29 19:30 97.7 102 124/65 18 --- --- 06/29 12:18 97.6 85 113/59 20 --- --- 06/29 07:00 98.0 100 106/54 20 --- --- 24 Hr Tmax: 97.7F (36.50c) at 06/29 19:30 Vital Signs are the last 5 in the past 48 hours. Date Wt(kg) Wt(lb) Ht(cm) Ht(in) Method 06/27 50.91 112.00 Measured 06/17 49.15 108.13 Measured 06/14 50.45 111.00 160.02 63.00 ----- 06/10 50.45 111.00 Measured 06/03 50.14 110.31 Measured 05/17 (initial) 49.27 108.40 Measured 05/17 160.02 63.00 Stated I&O Record In Out Bal 06/30 24hr Tot 160 0 160 06/29 24hr Tot 1991 0 1991 Medications (18) Active Scheduled Meds (13): 05/18/17 FLUoxetine 20 mg PEG Daily 06/22/17 acetylcysteine (acetylcysteine 20% inhalation solution) 400 mg NEB TRTID 06/22/17 albuterol-ipratropium (albuterol-ipratropium 2.5-0.5 mg inhalation solution) 3 mL NEB TRTID 06/16/17 amantadine 100 mg PEG BID--05/17/17 atorvastatin 40 mg PEG Bedtime 05/18/17 cholecalciferol (cholecalciferol 2000 intl units oral tablet) 2,000 IntlUnit PEG Daily 05/20/17 collagenase topical (Santyl) 1 appl TOP Daily 05/20/17 docusate-senna (docusate-senna 50 mg-8.6 mg oral tablet) 1 tab PO Daily 06/17/17 eszopiclone (Lunesta) 1 mg PO Bedtime 06/22/17 guaiFENesin 400 mg PEG QID 05/17/17 levETIRAcetam (levETIRAcetam 100 mg/mL oral solution) 750 mg PEG Q12H- 06 06/17/17 levothyroxine 88 microgram PO Q630AM 06/22/17 metoprolol (Lopressor) 12.5 mg PEG Q12H Unscheduled Meds (1): 05/26/17 lidocaine (lidocaine 1%) 50 mg INTRADERM ONCALL PRN Meds (4): 05/17/17 acetaminophen 650 mg PEG Q4H 05/17/17 levETIRAcetam 1,500 mg IV PRN 05/17/17 midazolam 5 mg IM PRN 05/26/17 sodium chloride (Saline Flush 0.9%) 10 mL IVP PRN One Time Meds: None Continuous Infusions: None Physical Exam: General: Sitting in WC in NAD, thin habitus HEENT: MMM, +Dry dressing over trach stoma CV:RRR Pulm: Respirations non-labored on room air, lungs CTAB GI: Abdomen nondistended, soft, nontender, +PEG MSK: Kyphotic deformity of cervical spine unchanged. No BLE swelling. Neurologic: Awake, alert, and interactive. Speech is fluent but dysphonic though this continues to improve. She moves all 4 limbs well against gravity. No tremors or other abnormal movements noted during this encounter. Psychiatric: Calm and cooperative. Affect somewhat restricted, but smiling appropriately, very pleasant. ASSESSMENT: 52 year old female s/p nontraumatic ICH due to a ruptured AVM on 01/19/16. She experienced significant functional deficits at that time, admitted to [facility] and eventually made very good progress. She then experienced a variety of new medical complications starting in January 2017 with new nontraumatic ICH and hydrocephalus s/p STAGE MANAGER shunt. She is now noted to have significant worsening of her previous baseline functional status for which she is now admitted to acute inpatient rehabilitation. PLAN: - Stable medical status noted. No new concerns. Ready for discharge. - Discharge instructions have been reviewed with the patient's daughter and will be provided in writing upon discharge. - Discharge to home. Extracted from: Title: Consult Note Author: Angeles Haque MD Date: 06/21/17 Assessment/Plan 1.Nontraumatic intracerebral hemorrhage in hemisphere, cortical 2.Cognitive communication deficit 3.Communicating hydrocephalus 4.Dysphagia following nontraumatic intracerebral hemorrhage 5.Hemiplegia and hemiparesis following nontraumatic intracerebral hemorrhage affecting right dominant side 6.Acute respiratory failure with hypoxia 7.Pulmonary embolism 8.Presence of tracheostomy Difficulty falling and staying asleep. The patient definitely has a component of anxiety preventing her from falling asleep. I agree with continuing Lunesta for now. If tolerated and required, t he dosage may be increased to 2 mg at night as necessary. However, the patient will eventually need a polysomnogramwith additional limb leads, in order to look for parasomnia behavior which is descr ibed by her daughter. This can be performed either as an inpatient or outpatient. I have discussed the logistics with the patient's daughter. Thank you very much for allowing me to evaluate her. Extracted from: Title: PMR History and Physical Author: Markell Johnson MD Date: 05/17/17 PM&R History and Physical DATE OF ADMISSION: 05/17/17 ADMITTING PHYSICIAN: Dr. Douglas REASON FOR ADMISSION: Functional impairments due to ruptured AVM HISTORY OF PRESENT ILLNESS: Ms. Jd Cole is a 52yo female with PMH significant for HTN, HLD, hypothyroidism, and seizure disorder who was admitted to [facility] on 01/25/17 for headaches. Patient has hx of L EDEN and MCA aneurysm s/p clipping (01/21/16), bifrontal craniotomy (01/30/17), and endoscopic evaluation ( 02/09/17) for presumed CSF leak. CT brain in ED revealed pneumocephalus without obvious source of leak. Patient was at neurol ogical baseline, serial CT head remained stable, and LP was negative for infection. Daughter and patient wished to receive further medical care at [facility], so patient was discharge. Patient w as admitted into [facility] with fevers, AMS, and SOB. CT chest showed PE and PNA. She was intubated for respiratory failure and given lovenox, with resulting ICH. NSGY performed craniotomy and resection of AVM/evacuation of hematoma. Due to her persistent hydrocephalus post op, VPS was placed. S/p trach and PEG. Patient was transferred to [place] on 02/23 and now being admitted to [facility] on 05/17 for acute IPR to improve functional independence. Ms. Cole was seen with no family members at bedside. She has a trach in place and remains quite hypophonic without a PMV valve, but she is awake, alert , and able to answer simple questions. She report s that she remains weak on the right side compared to the left and that she sometimes still has issues with shortness of breath. She endorses that her secretions from trach are minimal not requiring muc h suction. She denies issues with pain, muscle spasms, skin breakdown, or difficulty with appetite. She endorses that she has been able to eat a regular diet with no difficulty swallowing, but this is i nconsistent with recent reports. She is incontinent of bowel and bladder and currently has a mason catheter in place. PMH/PSH: 1. Hypertension. 2 . Hypothyroidism. 3. History of prior cerebral aneurysm. 4. Arteriovenous mal formation. 5. Hydrocephal us, status post STAGE MANAGER shunt. 6. Reflux disease. 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 8. Hyperlipidemia. 9. Seizure disorder. PAST SURGICAL HISTORY: Back surgery, craniotomy, STAGE MANAGER shunt placement, tracheotomy and PEG tube placement, and hysterectomy. 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 FUNCTIONAL HISTORY: Prior to December 2016, she was independent and ambulating with walker. CURRENT FUNCTION: Bathing : Total A Bed Mobility : MOD A Bed Wheelchair Transfer : Total A Bladder : Total A Bowel : Total A Eating : Total A Grooming : Total A Locomotion Walk : Does not occur Locomotion Wheelchair : Does not occur Lower Body Bathing : Total A Lower Extremity Dressing : Total A Rolling-Left to Right : MOD A Rolling-Right to Left : MOD A Toilet Transfer : Does not occur Sit to Stand : Does not occur Supine to Sit : MAX A Tub, Shower Transfer : Does not occur Upper Body Bathing : Total A Upper Extremity Dressing : Total A ALLERGIES: NKDA MEDICATIONS: Scheduled Meds (19): 05/18/17 8:30 FLUoxetine 20 mg PO Daily 05/18/17 8:30 amLODIPine 5 mg PEG Daily 05/18/17 8:00 amantadine 100 mg PEG BID-04-1705/17/17 21:00 atorvastatin 40 mg PO Bedtime 05/18/17 8:30 cholecalciferol (cholecalciferol 2000 intl units oral tablet) 2, 000 IntlUnit PEG Daily 05/18/17 8:30 cholestyramine 4 gm PO Daily 05/18/17 8:30 cyanocobalamin 1,000 microgram PEG Daily 05/17/17 21:00 heparin (heparin 5000 units/mL injectable solution) 5,000 unit SUB-Q Q12H 05/17/17 21:00 lactobacillus acidophilus 1 tab PEG TID 05/18/17 6:00 levETIRAcetam (levETIRAcetam 100 mg/mL oral solution) 750 mg PO [id number] 05/18/17 8:30 levofloxacin 500 mg PEG Daily 05/18/17 8:30 levothyroxine 200 microgram PEG Daily 05/18/17 8:30 liothyronine 5 microgram PEG Daily 05/18/17 8:30 losartan 25 mg PEG Daily 05/17/17 21:00 metoprolol (Lopressor) 50 mg PO Q12H 05/18/17 8:30 omeprazole 40 mg PEG Daily 05/18/17 8:30 polyethylene glycol 3350 17 gm PO Daily 05/17/17 21:00 potassium phosphate 1,000 mg PEG Q12H 05/17/17 21:00 vancomycin 1 gm IVPB Q12H Unscheduled Meds: None PRN Meds (11): 05/17/17 18:09 acetaminophen 650 mg PO Q4H 05/17/17 18:09 albuterol-ipratropium (albuterol-ipratropium 2.5-0.5 mg inhalation solution) 3 mL NEB PRN 05/17/17 18:09 insulin lispro 1 unit SUB-Q TID-Before Meals 05/17/17 18:09 insulin lispro 2 unit SUB-Q TID-Before Meals 05/17/17 18:09 insulin lispro 3 unit SUB-Q TID-Before Meals 05/17/17 18:09 insulin lispro 4 unit SUB-Q TID-Before Meals 05/17/17 18:09 insulin lispro 5 unit SUB-Q TID-Before Meals 05/17/17 18:09 levETIRAcetam 1,500 mg IV PRN 05/17/17 18:05 melatonin 5 mg PEG Bedtime 05/17/17 18:09 midazolam 5 mg IM PRN 05/17/17 18:09 sodium chloride (Saline Flush 0.9%) 10 mL IVP PRN REVIEW OF SYSTEMS: Constitutional: Negative fever, chills, malaise Eyes: Negative vision changes ENT: Negative sore throat, dysphagia CV: Negative CP, palpitations Respiratory: Negative SOB, cough, wheezing GI: Negative abdominal discomfort, bloating : Negative genital pain/discomfort Skin: Negative ulcers, wounds MSK: Negative numbness, tingling. Neurologic: Negative BLAKE, dizziness, lightheadedness Psychiatric: Negative sadness, tearfulness. PHYSICAL EXAMINATION: Vitals Tmp(F) Tmp(C) Ttype BP MAP Pulse RR SpO2 FIO2 ETCO2 05/17 18:09 ---- ---- ---- ----- --- --- -- 93 21% --- 05/17 18:07 ---- ---- ---- ----- --- --- -- 93 21% --- 05/17 17:27 ---- ---- ---- 119/65 --- 114 -- --- --- --- General: No acute distress. Well-nourished. HEENT: Left sided scar on scalp from previous NSGY appears well healed without bleeding or discharge; PERRLA, EOMI, conjunctiva pink, anicteric, normal oral mucosa CV: mild tachycardia with normal rhythm, no m/r/g Respiratory: no respiratory distress with trach in place on RA, CTAB GI: Abdomen soft, nondistended, nontender to palpation, +BS, PEG in place, site appears clean Skin: No rashes or wounds noted. MSK: No c/c/e. Decreased active and passive dorsiflexion on the right ankle. PROM otherwise normal Neurologic: Mental status: Awake and alert, oriented to person but not to place or year. Speech is fluent with intact repetition, naming, and comprehension but hypophonic. Answers most simple questions appropriatel y, follows one step commands without difficulty. No impulsivity, distractibility, or inattention noted. CN 2-12 intact. Reflexes 2+ bilateral patella and ankles; no clonus bilaterally Sensation: Light touch grossly intact on bilateral UE and LE Manual muscle testin/5 on left EF, WE, EE, FF, FA, HF, KE, DF, EHL, PF; 4/ 5 on left EF, WE, EE, FF, FA, HF, KE, PF; dorsiflexion limited on the right Tone: Decreased range of motion on right dorsiflexion. otherwise no increase in tone. Psychiatric: Calm and cooperative. Affect full. IMAGING: Reviewed IMPRESSION: Impairments: Neurogenic bladder Neurogenic bowel Impaired mobility Impaired basic activities of daily living Impaired instrumental activities of daily living Impaired community access Impaired avocation Activity limitations: Decreased mobility Decreased transfers Decreased speech Decreased ADLs Participation restrictions: Driving Return to work Taking care of the home Recreation and leisure activities Yarsanism activities Community reintegration PLAN: Rehabilitation: - The patient will require oversight by a rehabilitation physician and 24 hour rehabilitation nursing for management of bowel, bladder, skin integrity, medication management, safety measures, and preven ting risk factors and complications. The patient will require a minimum of 3 hours of therapy a day for 5-7 days a week throughout the hospitalization, including at least the followin-2 hours Physic al Therapy, 1-2 hours Occupational Therapy and 1 hour Speech-Language pathology , Neuropsychology, Exercise and Multidisciplinary Groups. These disciplines will be needed in order to improve the patient' s impairments in mobility, transfers, activities of daily living, swallowing and cognition and evaluation of durable medical equipment if needed at discharge. Social Work and Case Management will be con sulted to assist with discharge planning and family coping strategies. 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 - Patient currently on keppra 750 mg BID for seizure prophylaxis - Will monitor neurologic status closely. Respiratory failure: - s/p trach, currently on 6 cuffed shiley trach - continue suctioning and prn respiratory treatment Seizure disorder: - Patient currently on keppra 750 mg BID for seizure prophylaxis. Continue to monitor and possibly wean soon Cognitive deficits: - Patient with significant cognitive deficits and due to AVM rupture s/p clipping - RUCHING MACHINE OPERATOR consulted to evaluate and treat. Neuropsych will follow and test as appropriate. - Patient is currently on melatonin. Will monitor sleep/wake cycles closely to ensure optimal arousal and participation with therapies. - Patient is currently on amantadine 100 mg BID. Continue for now and monitor cognition closely. Spasticity: - Currently with contracture on right plantar flexor - PT and OT to initiate aggressive stretching, ROM exercises, bracing, splinting, casting and positioning as appropriate. - If the tone fails to improve with the above conservative measures, consider further intervention with botulinum toxin or phenol injections. 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 - Will inititate and aggressive rehabilitation program with PT and OT to work on strengthening and overall function. Dysphagia/Nutrition: - Patient currently on continuous tubefeed with Peptamen 1.5. - S/p PEG placement. PEG last changed on 02/15. - continue abd binder - Patient reports having been on a PO diet but reports are inconsistent. Will continue current tube feeds until evaluation by speech therapy. - RUCHING MACHINE OPERATOR to improve swallow function. - Ferryboat Pilot consulted. Will check Prealbumin. Neurogenic bowel: - Patient on miralax to facilitate regular BMs. Continue this regimen. - Will order PRN suppository. - Monitor BMs closely. Neurogenic bladder: - Patient with bladder dysfunction as a result of AVM. - Will continue mason catheter overnight but soon change to timed voids, monitor PVRs, and cath for PVR greater than 200 mL. ID: - MRSA sputum: contact precautions - continue vanc + Levaquin for PNA +ve for pseudomonas. Reportedly 3 more days of treatment. Will obtain vanc trough. Hypothyroidism: - continue synthroid - ordered admission TSH and free T4 Pain: - Currently no reported issues - Tylenol prn for now - Continue to monitor pain closely. Prophylaxis: - DVT: Continue heparin. Mobilize as tolerated. - GI: Continue omeprazole Access: - PIV in left UE. Currently in use for IV abx. - Will remove line when medically appropriate. Dispo: - Discharge disposition to be determined. Will discuss at team rounds. - Prognosis is good. - ELOS is 2-4 weeks. - Follow ups: 1. Primary care physician 2. PM&R outpt clinic 3. Neurosurgery PMR ATTENDING/POST-ADMISSION PHYSICIAN EVALUATION I saw, examined and discussed the patient with the resident, Dr. Johnson and agree with the documentation. There are no medical or functional changes since the preadmission assessment. The patient has on going medical and functional impairments related to the recent nontrauamtic ICH that can safely be met in the IRF setting, and these needs cannot be adequately addressed in a lower level of care, as the patient requires 24hr nursing and daily medical management. The patient also has comorbidities including hydrocephalus, hemiparesis, dysphagia, acute respiratory failure with tracheostomy in place, Pse udomonas PNA, HTN, hypothyroidism, and which also necessitate close medical supervision, specialized rehabilitation nursing, and skilled therapy intervention. The patient is able to participate in and b enefit from an acute inpatient rehabilitation program, with anticipated measurable gains as a result of this program. There are no obvious barriers to disposition to the community following the IRF admission. - CBC, BMP, LFTs, and thyroid studies obtained. No remarkable findings. UA still pending. - CT head ordered to better establish neuroanatomy. - EKG ordered as many medications that we would consider to facilitate recovery can cause conduction abnormalities. - IM, Dr. Lewis, consulted to help with medical managment of HTN, PNA, and other comorbidities. Individualized Plan of Care: Patient will require oversight by a rehabilitation physician and 24 hour rehabilitation nursing for management of bowel, bladder, skin integrity, medication management, safety measures, and preventing r isk factors and complications. Patient will require a minimum of 3 hours of therapy a day for 5-7 days a week throughout the hospitalization, including at least the followin-2 hours Physical Therapy , 1-2 hours Occupational Therapy and 1 hour Speech-Language pathology, Neuropsychology, Exercise and Multidisciplinary Groups. These disciplines will be needed in order to improve the patient's impairme nts in mobility, transfers, activities of daily living, swallowing and cognition and evaluation of durable medical equipment if needed at discharge. Social Work and Case Management will be consulted to assist with discharge planning and family coping strategies. Prognosis: Fair to good Estimated Length of Stay: 3-4 weeks Discharge Disposition: To home versus post-acute BI rehab facility versus SNF depending on progress and medical stability Date of service: 05/18/17 Juan Douglas MD [id number]
--- OUTSIDE RECORDS SUMMARY | 2019-01-05 19:37 | XMS REPORT | Summary of Care ---
:1965 Author Organization [facility] Address [facility] [place], [place] [address] Encounter [facility](FIN) [id number] Date(s): 05/17/18 - 05/17/[address] [address]- [phone] Encounter Diagnosis Dysphagia, unspecified (Final) - Personal history of transient ischemic attack (TIA), and cerebral infarction without residual deficits (Final) - Personal history of traumatic brain injury (Final) - Other chronic pain (Final) - 05/27/18 Hypothyroidism, unspecified (Final) - Hydrocephalus, unspecified (Final) - Nicotine dependence, cigarettes, uncomplicated (Final) - Essential (primary) hypertension (Final) - Chronic obstructive pulmonary disease, unspecified (Final) - Constipation, unspecified (Final) - Seborrheic dermatitis, unspecified (Final) - Calculus of kidney (Final) - Neuromuscular dysfunction of bladder, unspecified (Final) - Unspecified convulsions (Final) - Encounter for immunization (Final) - Personal history of infections of the central nervous system (Final) - Nontraumatic subarachnoid hemorrhage, unspecified (Final) - Discharge Disposition: Home or Self Care Attending Physician: Isa Santamaria MD Referring Physician: Candelario Meadows MD Vital Signs Most recent to oldest [Reference Range]: 1 2 Height 157.48 cm 157.48 cm (05/17/18 3:40 PM) (05/17/18 2:57 PM) Temperature Oral [96.4-99.1 DegF] 98.1 DegF (05/17/18 2:57 PM) Blood Pressure [90-140/60-90 mmHg] 104/68 mmHg 105/58 mmHg (05/17/18 3:40 PM) (05/17/18 2:57 PM) Respiratory Rate [14-20 BRMIN] 20 BRMIN (05/17/18 3:40 PM) Peripheral Pulse Rate [60-100 bpm] 83 bpm 80 bpm (05/17/18 3:40 PM) (05/17/18 2:57 PM) Weight 45.455 kg 45.455 kg (05/17/18 3:40 PM) (05/17/18 2:57 PM) Body Mass Index 18.33 m2 18.33 m2 (05/17/18 3:40 PM) (05/17/18 2:57 PM) Problem List Condition Effective Dates Status Health Status Informant Acute respiratory failure(Confirmed) Active Anemia(Confirmed) Active Aneurysm(Confirmed)1 Resolved ICH (intracerebral Active hemorrhage)(Confirmed) Chronic anemia(Confirmed) Active Chronic back pain(Confirmed) Resolved 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, cortical(Confirmed) Diarrhea(Confirmed) Active Dysphagia(Confirmed) Active Fall(Confirmed) Active Fever(Confirmed) Active History of subarachnoid Resolved hemorrhage(Confirmed) H/O tracheostomy(Confirmed) Active Hemiparesis affecting right side as Active late effect of stroke(Confirmed) Subarachnoid hemorrhage(Confirmed) Resolved Subarachnoid hemorrhage(Confirmed) Resolved HTN - Hypertension(Confirmed) Resolved Hydrocephalus(Confirmed) Resolved Hydrocephalus(Confirmed) Active Hypercapnia(Confirmed) Active HTN (hypertension)(Confirmed) Resolved Hypothyroidism(Confirmed) Active Hypothyroid(Confirmed) Resolved Hypoxia(Confirmed) Active Cerebral aneurysm(Confirmed) Resolved Meningoencephalitis(Confirmed) Active Metabolic encephalopathy(Confirmed) Active MRSA(Confirmed)2, 3, 4, 5 06/17/17 Active Pneumocephalus(Confirmed) Active Pneumonia(Confirmed) Active MDR Pseudomonas(Confirmed)6, 7, 8, 9 05/22/17 Active Cognitive deficits following Active nontraumatic intracerebral hemorrhage(Confirmed) Respiratory failure(Confirmed) Active SAH - Subarachnoid Active hemorrhage(Confirmed) Stroke(Confirmed) Active 1Clipped in [id number] Aspirate - 06/17/201791615Emsyzrxz Aspirate - [id number] - 05/06/201710387Fysxpbt added by Discern Expert.6Trach aspirate (CRE), [id number] Aspirate - 06/17/201729415Fwseegxr Aspirate - 05/22/201755352Rwnzzsh added by Discern Expert. Allergies, Adverse Reactions, Alerts Substance Reaction Severity Status promethazine Active Phenergan Phenergan Active Medications benzonatate 100 mg oral capsule 100 mg=1 cap, PO, TID, do not crush or chew, # 60 cap, 11 Refill(s), [id number] Start Date: 05/17/18 Stop Date: 10/15/18 Status: Discontinuedketoconazole topical 2% shampoo 1 appl, TOP, 2x/Wk, separate doses by at least 3 days, X 8 week, # 120 mL, 11 Refill(s), Pharmacy: [id number] Start Date: 05/17/18 Stop Date: 10/25/18 Status: DiscontinuedOmnipaque 300 injectable solution 100 mL, Route: INTRAVESICULAR, Drug Form: SOLN, Dosing Weight 49.545, kg, ONCE, Start date: 05/17/1814:38:00 CDT, Stop date: 05/17/18 14:38:00 CDT Notes: (Same as:Omnipaque 300).WASTE: F/P - Black; E - Anatexis Trash Bin Start Date: 05/17/18 Stop Date: 05/17/18 Status: Completed Results No data available for this section Immunizations Given and Recorded Vaccine Date Status Refusal Reason influenza virus vaccine, inactivated 05/17/18 Given influenza virus vaccine, inactivated 07/30/17 Given tuberculin purified protein derivative 04/25/16 Given Not Given Vaccine Date Status Refusal Reason pneumococcal 23-valent vaccine1 01/22/16 Not Given Parent Or Guardian Refuses 1Result Note: family member says pt already received in a prior hospitalization Procedures Procedure Date Related Diagnosis Body Site Status Video urodynamic study 05/17/18 Completed Clipping of aneurysm of cerebral artery Completed Craniotomy Completed Laminectomy1 Completed PEG - Percutaneous endoscopic Completed gastrostomy Radical resection of tumor of soft Completed tissue of thorax2 Tracheostomy Completed 1Several spinal [id number] seperate procedures. the last one was more [...] in household: No; Exposure to Tobacco Smoke None; Cigarette Smoking Last 365 Days Yes; Reg Smoking Cessation Counseling No; Tobacco use per day: 1; Started at age: 17.0; Stopped at age : 51; Other Tobacco Frequency quit january 2016; entered on: 10/15/18 1denies Exercise Assessment and Plan No data available for this section
--- OUTSIDE RECORDS SUMMARY | 2019-01-05 19:37 | XMS REPORT | Summary of Care ---
:1965 Author Organization [facility] Address [address] [place], [place] [id number] Encounter HQ Encntr_johanna(FIN) [id number] Date(s): 10/15/18 - 10/26/[address] Encounter Diagnosis Encephalopathy, unspecified (Final) - Discharge Disposition: Assisted Facility Attending Physician: Juan Douglas MD Admitting Physician: Juan Douglas MD Vital Signs Most recent to oldest 1 2 3 [Reference Range]: Height 160.02 cm (10/15/18 12:16 PM) Current Weight 44.455 kg 45.091 kg (10/20/18 3:33 PM) (10/15/18 12:48 PM) Temperature Oral [96.4-99.1 98.3 DegF 97.4 DegF 98.7 DegF DegF] (10/23/18 7:30 PM) (10/23/18 7:13 AM) (10/22/18 7:30 PM) Blood Pressure [90-140/60-90 132/70 mmHg 104/57 mmHg mmHg] (10/26/18 7:30 AM) (10/25/18 6:00 PM) Systolic Blood Pressure 96 mmHg [90-140 mmHg] (10/25/18 1:30 PM) Diastolic Blood Pressure 58 mmHg [60-90 mmHg] *LOW* (10/25/18 1:30 PM) Respiratory Rate [14-20 17 BRMIN 17 BRMIN 18 BRMIN BRMIN] (10/26/18 7:30 AM) (10/25/18 7:34 AM) (10/24/18 7:30 PM) Peripheral Pulse Rate [60-100 88 bpm 100 bpm 93 bpm bpm] (10/26/18 7:30 AM) (10/25/18 6:00 PM) (10/25/18 1:30 PM) Weight 45.091 kg (10/15/18 12:16 PM) Body Mass Index 17.61 m2 (10/15/18 12:16 PM) Problem List Condition Effective Dates Status [...] Subarachnoid Active hemorrhage(Confirmed) Stroke(Confirmed) Active 1Clipped in [id number] Aspirate - 06/17/201741374Nkfgdnce Aspirate - [id number] - 05/06/[id number] added by Discern Expert.6Trach aspirate (CRE), 48845Qwiivdas Aspirate - 06/17/201756772Kfmlpdke Aspirate - 05/22/201721000Wrusppa added by Discern Expert. Allergies, Adverse Reactions, Alerts Substance Reaction Severity Status promethazine Active Phenergan Phenergan Active Medications acetaminophen 650 mg, 2 tab, Route: PO, Drug form: TAB, Q6H, Dosing Weight 47.727, kg, PRN Pain 1-3/Temp > 100.4 F, Start date: 10/15/18 12:08:00 PRIZE FIGHTER, Duration: 30 day , Stop date: 11/14/18 12:07:00 CDT, Pain 1-5/Temp > 100.4 F Notes: Do not exceed 4 gm/day. (Same as: Tylenol) Start Date: 10/15/18 Stop Date: 10/26/18 Status: Discontinuedatorvastatin 40 mg, 1 tab, Route: PO, Drug form: TAB, Bedtime, Dosing Weight 47.727, kg, Start date: 10/15/18 21:00:00 PRIZE FIGHTER, Duration: 60 day, Stop date: 12/13/18 21:00: 00 CDT Notes: (Same as: Lipitor) Start Date: 10/15/18 Stop Date: 10/26/18 Status: Discontinuedatorvastatin 40 mg oral tablet 40 mg=1 tab, PO, Bedtime, 0 Refill(s) Start Date: 10/25/18 Status: OrderedCathflo Activase 2 mg injection 1 mg, 1 mL, Route: INJ, Drug form: INJ, ONCE, Dosing Weight 45.091, kg, Start date: 10/16/18 22:49:00 PRIZE FIGHTER, Stop date: 10/16/18 22:49:00 PRIZE FIGHTER, Occluded CVAD &lt ; 7 [place]cu[place] Notes: "Syringe for catheter clearance or interventional radiology use.Reconstitute each vial of Cathflo Activase with 2.2 ml Sterile Water resulting in a 1 mg/ml solution. (Same as: Activase) MEDICATION WASTE Product Size: 2 mgProduct Wasted: ___ mg Start Date: 10/16/18 Stop Date: 10/17/18 Status: CompletedCathflo Activase 2 mg injection 1 mg, 1 mL, Route: INJ, Drug form: INJ, ONCE, Dosing Weight 45.091, kg, Start date: 10/16/18 22:49:00 PRIZE FIGHTER, Stop date: 10/16/18 22:49:00 PRIZE FIGHTER, Occluded CVAD &lt ; 7 [place] Notes: "Syringe for catheter clearance or interventional radiology use.Reconstitute each vial of Cathflo Activase with 2.2 ml Sterile Water resulting in a 1 mg/ml solution. (Same as: Activase) MEDICATION WASTE Product Size: 2 mgProduct Wasted: ___ mg Start Date: 10/16/18 Stop Date: 10/16/18 Status: Completedcetirizine 10 mg oral tablet 10 mg=1 tab, PO, Daily, 0 Refill(s) Start Date: 10/25/18 Status: XoneznaE9O 1,000 mL 1,000 mL, Rate: 75 ml/hr, Infuse over: 13.3 hr, Route: IV, Dosing Weight 45.091 kg, Total Volume: 1,000 Liter, Start date: 10/24/18 13:59:00 PRIZE FIGHTER, Duration: 2 doses or times, Stop date: 10/25/18 16:34:00 PRIZE FIGHTER, 1.42, m2 Start Date: 10/24/18 Stop Date: 10/25/18 Status: CompletedDaily Milly 1 tab, Route: PO, Dosing Weight 47.727, kg, Daily, Start date: 10/16/18 8:30:00 PRIZE FIGHTER, Duration: 30 day, Stop date: 11/14/18 8:30:00 CDT Start Date: 10/16/18 Stop Date: 10/15/18 Status: Deleteddocusate sodium 100 mg oral capsule 200 mg=2 cap, PO, BID, 0 Refill(s) Start Date: 10/25/18 Status: Ordereddocusate sodium 100 mg oral capsule 200 mg, 2 cap, Route: PO, Drug form: CAP, BID, Dosing Weight 47.727, kg, Start date: 10/17/18 21:00:00 PRIZE FIGHTER, Duration: 60 day, Stop date: 12/16/18 8:30:00 CDT Notes: (Same as: Colace) (Do Not Crush) Start Date: 10/17/18 Stop Date: 10/26/18 Status: Discontinueddocusate sodium 100 mg oral capsule 100 mg, 1 cap, Route: PO, Drug form: CAP, BID, Dosing Weight 47.727, kg, Start date: 10/15/18 21:00:00 PRIZE FIGHTER, Duration: 60 day, Stop date: 12/14/18 8:30:00 CDT Notes: (Same as: Colace) (Do Not Crush) Start Date: 10/15/18 Stop Date: 10/17/18 Status: DiscontinuedDulcolax Laxative 10 mg, 1 supp, Route: IL, Drug form: SUPP, Daily, Dosing Weight 45.091, kg, PRN Constipation, Start date: 10/22/18 13:49:00 PRIZE FIGHTER, Duration: 30 day, Stop date: 13:48:00 CDT Notes: (Same As: Dulcolax, Bisco-Lax) Start Date: 10/22/18 Stop Date: 10/26/18 Status: DiscontinuedFlonase 0.05 mg/inh nasal spray 2 spray, Route: Each Affected Nostril, Drug Form: SPRY, Dosing Weight 45.091, kg , Daily, Start date:10/26/18 8:30:00 PRIZE FIGHTER, Duration: 7 day, Stop date: 11/01/18 8 :30:00 PRIZE FIGHTER Notes: (Same as: Flonase) Start Date: 10/26/18 Stop Date: 10/26/18 Status: DiscontinuedFlonase 0.05 mg/inh nasal spray 100 microgram=2 spray, Each Affected Nostril, Daily, 0 Refill(s) Start Date: 10/25/18 Status: OrderedFLUoxetine 40 mg, 2 cap, Route: PO, Drug form: CAP, Daily, Dosing Weight 47.727, kg, Start date: 10/25/18 8:30:00 PRIZE FIGHTER, Duration: 60 day, Stop date: 12/23/18 8:30:00 CDT Notes: (Same as: Prozac, Sarafem) Start Date: 10/25/18 Stop Date: 10/26/18 Status: DiscontinuedFLUoxetine 20 mg, 1 cap, Route: PO, Drug form: CAP, Bedtime, Dosing Weight 47.727, kg, Start date: 10/15/18 21:00:00 PRIZE FIGHTER, Duration: 60 day, Stop date: 12/13/18 21:00: 00 CDT Notes: (Same as: Prozac, Sarafem) Start Date: 10/15/18 Stop Date: 10/24/18 Status: DiscontinuedFLUoxetine 40 mg oral capsule 40 mg=1 cap, PO, Daily, 0 Refill(s) Start Date: 10/25/18 Status: OrderedguaiFENesin 100 mg/5 mL oral liquid 200 mg, 10 mL, Route: PO, Drug form: SYRP, QID, Dosing Weight 45.091, kg, PRN Cough/Congestion, Start date: 10/16/18 22:07:00 PRIZE FIGHTER, Duration: 30 day, Stop date : 11/15/18 22:06:00 CDT Notes: (Same as: Anali) Start Date: 10/16/18 Stop Date: 10/26/18 Status: DiscontinuedguaiFENesin 600 mg oral tablet, extended release 600 mg=1 tab, PO, Q12H, 0 Refill(s) Start Date: 10/25/18 Status: OrderedguaiFENesin liquid 100 mg/ 5 mL 200 mg, 10 ml, Route: PO, Drug Form: SYRP, Dosing Weight 45.091, kg, Q4H, Start date: 10/19/18 10:22:00 PRIZE FIGHTER, Stop date: 10/19/18 16:30:00 PRIZE FIGHTER Notes: (Same as: Anali) Start Date: 10/19/18 Stop Date: 10/19/18 Status: Completedheparin 5,000 unit, 1 mL, Route: SUB-Q, Drug form: INJ, Q8H, Dosing Weight 45.091, kg, Start date: 10/15/18 16:00:00 PRIZE FIGHTER, Duration: 30 day, Stop date: 11/14/18 8:00: 00 CDT Notes: porcine heparin Start Date: 10/15/18 Stop Date: 10/26/18 Status: Discontinuedlactobacillus acidophilus 1 tab, PO, BID, 0 Refill(s) Start Date: 10/25/18 Status: Orderedlactobacillus acidophilus 1 tab, Route: PO, Drug Form: CHEWTAB, Dosing Weight 45.091, kg, BID, Start date : 10/19/18 8:30:00 PRIZE FIGHTER, Duration: 30 day, Stop date: 11/17/18 21:00:00 CDT Notes: High Potency Chewable lactobabacillus acidophilus 1 billion bacteria/ tablet Start Date: 10/19/18 Stop Date: 10/26/18 Status: DiscontinuedlevETIRAcetam 1,500 mg, Route: IV, Drug form: INJ, PRN, Dosing Weight 47.727, kg, PRN Seizure , Start date: 10/15/18 12:08:00 PRIZE FIGHTER, Duration: 60 day, Stop date: 12/14/18 13:07 :00 CDT Notes: Same as KeppraMix with 100 mL NS, LR or D5W MEDICATION WASTE Product Size: 500 mgProduct Wasted: ___ mg Start Date: 10/15/18 Stop Date: 10/26/18 Status: DiscontinuedlevETIRAcetam 250 mg oral tablet 750 mg, 3 tab, Route: PO, Drug form: TAB, Q12H, Dosing Weight 47.727, kg, Start date: 10/15/18 21:00:00 PRIZE FIGHTER, Duration: 30 day, Stop date: 11/14/18 9:00:00 CDT Notes: (Same as:Keppra) Start Date: 10/15/18 Stop Date: 10/26/18 Status: DiscontinuedlevETIRAcetam 750 mg oral tablet 750 mg=1 tab, PO, BID, # 180 tab, 0 Refill(s), Pharmacy: [facility]/pharmacy #[id number] Start Date: 10/26/18 Status: Orderedlevothyroxine 88 microgram, 1 tab, Route: PO, Drug form: TAB, Q630AM, Dosing Weight 47.727, kg , Start date: 10/16/18 6:30:00 PRIZE FIGHTER, Duration: 60 day, Stop date: 12/14/18 6:30: 00 CDT Notes: Take 1 hour before or 2 hours after meal; Enteral feeds may interefere with the absorption ofthis medication. (Same as:Synthroid) Start Date: 10/16/18 Stop Date: 10/26/18 Status: Discontinuedlevothyroxine 88 mcg (0.088 mg) oral tablet 88 microgram=1 tab, PO, Q630AM, 0 Refill(s) Start Date: 10/25/18 Status: Orderedlidocaine topical patch (5% film) 1 patch, Route: TOP, Daily, Drug form: FILM, Start date: 10/16/18 8:30:00 PRIZE FIGHTER, Duration: 60 day, Stop date: 12/14/18 8:30:00 CDT Notes: Apply only once for up to 12 hours in [id number] period (12 hours on and 12 hours off).(Same as: Lidoderm)"Remove old patch before application of new patch" Start Date: 10/16/18 Stop Date: 10/26/18 Status: Discontinuedmelatonin 3 mg oral tablet 3 mg, PO, Q8PM, 0 Refill(s) Start Date: 10/25/18 Status: Orderedmelatonin 3 mg oral tablet 3 mg, 1 tab, Route: PO, Drug Form: TAB, Dosing Weight 47.727, kg, Q8PM, Start date: 10/15/18 20:00:00 PRIZE FIGHTER, Duration: 60 day, Stop date: 12/13/18 20:00:00 CDT Notes: (Same as: Melatonin) Start Date: 10/15/18 Stop Date: 10/26/18 Status: Discontinuedmetoprolol tartrate 6.25 mg, 0.25 tab, Route: PO, Drug form: TAB, BID, Dosing Weight 47.727, kg, Start date: 10/15/18 21:00:00 PRIZE FIGHTER, Duration: 60 day, Stop date: 12/14/18 8:30: 00 CDT Notes: (Same as: Lopressor) Start Date: 10/15/18 Stop Date: 10/26/18 Status: Discontinuedmetoprolol tartrate 25 mg oral tablet 6.25 mg=0.25 tab, PO, BID, 0 Refill(s) Start Date: 10/25/18 Status: Orderedmidazolam 5 mg, 1 mL, Route: IM, Drug form: INJ, PRN, Dosing Weight 47.727, kg, PRN Seizure, Start date: 10/15/18 12:08:00 PRIZE FIGHTER, Duration: 60 day, Stop date: 13:07:00 CDT Notes: (Same as:Versed) Start Date: 10/15/18 Stop Date: 10/26/18 Status: DiscontinuedMilk of Magnesia 30 ml, Route: PO, Drug Form: SUSP, Dosing Weight 45.091, kg, ONCE, Start date: 10/17/18 21:07:00 PRIZE FIGHTER, Stop date: 10/17/18 21:07:00 PRIZE FIGHTER Notes: (Same as: Milk of Magnesia, MOM) Start Date: 10/17/18 Stop Date: 10/17/18 Status: CompletedMucinex 600 mg, 1 tab, Route: PO, Drug form: ERTAB, Q12H, Dosing Weight 45.091, kg, Start date: 10/19/18 21:00:00 PRIZE FIGHTER, Duration: 10 day, Stop date: 10/29/18 9:00: 00 PRIZE FIGHTER Notes: (Same as: Guaifenesin LA, Humibid LA, Mucinex)"Do Not Crush" Take medication with plenty of water. Start Date: 10/19/18 Stop Date: 10/26/18 Status: DiscontinuedMultiple Vitamins with Minerals oral tablet PO, Daily, 0 Refill(s) Start Date: 10/25/18 Status: Orderedmultivitamin with minerals 1 tab, Route: PO, Drug Form: TAB, Daily, Start date: 10/16/18 8:30:00 PRIZE FIGHTER, Duration: 60 day, Stop date: 12/14/18 8:30:00 CDT Notes: (Same as:Thera-M, Theragran-M)WASTE: F/P - Black; E - Municipal Trash Bin Give with food. Start Date: 10/16/18 Stop Date: 10/26/18 Status: DiscontinuedNS 1,000 mL 1,000 mL, Rate: 100 ml/hr, Infuse over: 10 hr, Route: IV, Dosing Weight 45.091 kg, Total Volume: 1,000, Start date: 10/22/18 11:04:00 PRIZE FIGHTER, Duration: 30 day, Stop date: 11/21/18 11:03:00 CDT, 1.42, m2 Start Date: 10/22/18 Stop Date: 10/23/18 Status: DiscontinuedNS 1,000 mL 1,000 mL, Rate: 100 ml/hr, Infuse over: 10 hr, Route: IV, Dosing Weight 45.091 kg, Total Volume: 1,000, Start date: 10/21/18 21:21:00 PRIZE FIGHTER, Duration: 30 day, Stop date: 11/20/18 21:20:00 CDT, 1.42, m2 Start Date: 10/21/18 Stop Date: 10/22/18 Status: DiscontinuedNS 1,000 mL 1,000 mL, Rate: 125 ml/hr, Infuse over: 8 hr, Route: IV, Dosing Weight 45.091 kg , Total Volume: 1,000, Start date: 10/21/18 15:21:00 PRIZE FIGHTER, Duration: 1 doses or times, Stop date: 10/21/18 23:20:00 PRIZE FIGHTER, 1.42, m2 Start Date: 10/21/18 Stop Date: 10/21/18 Status: Completednystatin topical 100,000 units/g ointment 1 appl, Route: TOP, BID, Drug form: OINT, Start date: 10/16/18 21:00:00 PRIZE FIGHTER, Duration: 30 day, Stop date: 11/15/18 8:30:00 CDT Notes: Same as:Mycostatin Nilstat For external use only Start Date: 10/16/18 Stop Date: 10/26/18 Status: Discontinuednystatin topical 100,000 units/g ointment 1 appl, TOP, BID, 0 Refill(s) Start Date: 10/25/18 Status: Orderedpneumococcal 13-valent vaccine 0.5 mL, Route: IM, Drug Form: INJ, ONCALL, Start date: 10/15/18 14:22:55 PRIZE FIGHTER, Stop date: 11/15/18 14:17:55 CDT Notes: Shake well prior to use (Same as: Prevnar 13) Start Date: 10/15/18 Stop Date: 10/26/18 Status: Discontinuedpotassium chloride 20 mEq oral tablet, extended release 40 mEq, 2 tab, Route: PO, Drug form: ERTAB, Daily, Dosing Weight 47.727, kg, Start date: 10/16/18 8:30:00 PRIZE FIGHTER, Duration: 30 day, Stop date: 11/14/18 8:30:00 CDT Notes: (Same as: K-Dur 20)"Do Not Crush" Give with food and full glass of waterFor patients unable to swallow tablet, dissolve in one half glass of water. Allow about 2 minutes for the tablets to disintegrate. Stir before giving to prepare slurry and administer.Please exclude Patients with feedingtube less than 14 [place] (Dobhoff, J-tube etc) and pediatric and patients. Start Date: 10/16/18 Stop Date: 10/26/18 Status: Discontinuedpotassium chloride 20 mEq oral tablet, extended release 40 mEq=2 tab, PO, Daily, 0 Refill(s) Start Date: 10/25/18 Status: Orderedpotassium chloride 20 mEq oral tablet, extended release 40 mEq, 2 tab, Route: PO, Drug form: ERTAB, ONCE, Dosing Weight 45.091, kg, Start date: 10/15/18 13:06:00 PRIZE FIGHTER, Stop date: 10/15/18 13:06:00 PRIZE FIGHTER Notes: (Same as: K-Dur 20)"Do Not Crush" Give with food and full glass of waterFor patients unable to swallow tablet, dissolve in one half glass of water. Allow about 2 minutes for the tablets to disintegrate. Stir before giving to prepare slurry and administer.Please exclude Patients with feedingtube less than 14 [place] (Dobhoff, J-tube etc) and pediatric and patients. Start Date: 10/15/18 Stop Date: 10/15/18 Status: Completedpotassium phosphate-sodium phosphate 250 mg-280 mg-160 mg oral powder for reconstitution 1 pkt, PO, Daily, 0 Refill(s) Start Date: 10/25/18 Status: Orderedpotassium phosphate-sodium phosphate 250 mg-280 mg-160 mg oral powder for reconstitution 1 pkt, Route: PO, Drug Form: PDR/REC, Dosing Weight 45.091, kg, Daily, Start date: 10/21/18 8:30:00 PRIZE FIGHTER, Duration: 60 day, Stop date: 12/19/18 8:30:00 CDT Notes: (Same as: Georgi-NaK) Each 1.5 gm pkt has 250mg phosphorous. Mix w/2.5oz water and stir. Start Date: 10/21/18 Stop Date: 10/26/18 Status: Discontinuedpotassium phosphate-sodium phosphate 250 mg-280 mg-160 mg oral powder for reconstitution 1 pkt, Route: PO, Drug Form: PDR/REC, Dosing Weight 45.091, kg, ONCE, Start date : 10/20/18 9:19:00 PRIZE FIGHTER, Stop date: 10/20/18 9:19:00 PRIZE FIGHTER Notes: (Same as: Phos-NaK) Each 1.5 gm pkt has 250mg phosphorous. Mix w/2.5oz water and stir. Start Date: 10/20/18 Stop Date: 10/20/18 Status: Completedremove patch 1 patch, Route: TOP, Bedtime, Drug form: ERFILM, Start date: 10/16/18 20:30:00 PRIZE FIGHTER, Duration: 60 day, Stop date: 12/14/18 20:30:00 CDT Notes: Remove patch 12 hours after application each day. Start Date: 10/16/18 Stop Date: 10/26/18 Status: DiscontinuedSaline Flush 0.9% 10 mL, Route: IVP, Drug Form: INJ, Dosing Weight 47.727, kg, PRN, PRN Line Flush , Start date: 10/15/18 12:08:00 PRIZE FIGHTER, Duration: 60 day, Stop date: 12/14/18 13:07 :00 CDT Notes: (Same as: BD Posiflush) Start Date: 10/15/18 Stop Date: 10/26/18 Status: Discontinuedsenna 17.2 mg, 2 tab, Route: PO, Drug Form: TAB, Dosing Weight 47.727, kg, QNoon, Start date: 10/15/18 12:08:00 PRIZE FIGHTER, Duration: 60 day, Stop date: 12/14/18 12:00: 00 CDT Notes: (Same as: Senokot) Start Date: 10/15/18 Stop Date: 10/26/18 Status: Discontinuedsenna 8.6 mg oral tablet 17.2 mg=2 tab, PO, QNoon, 0 Refill(s) Start Date: 10/25/18 Status: OrderedSterile Water for Irrigation 4.4 mL, Route: IV, Drug Form: INJ, Dosing Weight 45.091, kg, ONCE, Start date: 10/16/18 23:04:00 PRIZE FIGHTER, Stop date: 10/16/18 23:04:00 PRIZE FIGHTER Notes: For reconstitution of drugs only Start Date: 10/16/18 Stop Date: 10/16/18 Status: Completedtramadol 50 mg oral tablet 50 mg, 1 tab, Route: PO, Drug form: TAB, Q6Hnow, Dosing Weight 47.727, kg, PRN Pain Score 6-10, Start date: 10/15/18 12:08:00 PRIZE FIGHTER, Duration: 30 day, Stop date : 11/14/18 12:07:00 CDT Notes: Not to exceed 400mg/day. (Same As: Ultram) Start Date: 10/15/18 Stop Date: 10/26/18 Status: DiscontinuedTums 500 mg, 1 tab, Route: CHEW, Drug form: CHEWTAB, TID, Dosing Weight 45.091, kg, PRN Indigestion, Start date: 10/15/18 15:20:00 PRIZE FIGHTER, Duration: 60 day, Stop date : 12/14/18 15:19:00 CDT Notes: (Same As: Tums)Calcium Carbonate 500 ku=479 mg elemental calcium Dose=_ mg calcium carbonate ( mg elemental calcium) Start Date: 10/15/18 Stop Date: 10/26/18 Status: Discontinuedvancomycin + Sodium Chloride 0.9% IV 100 mL 500 mg, Route: IVPB, [id number], Dosing Weight 47.727, kg, Start date: 10/15/18 21: 00:00 PRIZE FIGHTER, Duration:30 day, Stop date: 11/14/18 9:00:00 CDT, 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 Notes: TIME CRITICAL MEDICATION(Same As: Vancocin)For adult patients only: Round to nearest 250 mg per Medical Staff approval Start Date: 10/15/18 Stop Date: 10/18/18 Status: Discontinuedvancomycin + Sodium Chloride 0.9% IV 100 mL 500 mg, Route: IVPB, Daily, Start date: 10/18/18 15:00:00 PRIZE FIGHTER, Duration: 30 day , Stop date: 11/17/1915:00:00 CDT, 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 Notes: TIME CRITICAL MEDICATION(Same As: Vancocin)For adult patients only: Round to nearest 250 mg per Medical Staff approval Start Date: 10/18/18 Stop Date: 10/19/18 Status: Discontinuedvancomycin + Sodium Chloride 0.9% IV 250 mL 750 mg, Route: IVPB, Drug form: PDR/INJ, [id number], Start date: 10/19/18 18:00:00 PRIZE FIGHTER, Duration: 30 day, Stop date: 11/17/18 18:00:00 CDT, 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 Notes: TIME CRITICAL MEDICATION(Same As: Vancocin)Infusion rate< 1000 mg: infuse over 1 [id number] - 1500 mg: infuse over 1.5 [id number] - 2000 mg: infuse over 2 hours> 2001 mg: infuse over 2.5 hoursFor adult patients only: Round to nearest 250 mg per Medical Staff approval Start Date: 10/19/18 Stop Date: 10/26/18 Status: Discontinuedvancomycin 750 mg intravenous injection 750 mg, IV, Q12H, Continue at least through 11/02/18 for minimum course of 4 weeks., X 8 day, # 16 bag, 0 Refill(s), other Start Date: 10/25/18 Stop Date: 11/02/18 Status: OrderedVitamin D3 2,000 IntlUnit, 2 tab, Route: PO, Drug form: TAB, QAM, Dosing Weight 47.727, kg , Start date: 10/16/18 6:30:00 PRIZE FIGHTER, Duration: 60 day, Stop date: 12/14/18 6:30: 00 CDT Notes: Same as : Vitamin D3 Start Date: 10/16/18 Stop Date: 10/26/18 Status: DiscontinuedZyrTEC 10 mg, 1 tab, Route: PO, Drug form: TAB, Daily, Dosing Weight 45.091, kg, Start date: 10/20/18 8:30:00 PRIZE FIGHTER, Duration: 10 day, Stop date: 10/29/18 8:30:00 PRIZE FIGHTER Notes: (Same As: Zyrtec) Start Date: 10/20/18 Stop Date: 10/26/18 Status: DiscontinuedZyrTEC 10 mg, Route: PO, Drug form: TAB, Bedtime, Dosing Weight 45.091, kg, Start date : 10/19/18 21:00:00 PRIZE FIGHTER, Duration: 10 day, Stop date: 10/28/18 21:00:00 PRIZE FIGHTER Start Date: 10/19/18 Stop Date: 10/19/18 Status: CanceledZyrTEC 10 mg, 1 tab, Route: PO, Drug form: TAB, ONCE, Dosing Weight 45.091, kg, Start date: 10/19/18 9:54:00 PRIZE FIGHTER, Stop date: 10/19/18 9:54:00 PRIZE FIGHTER Notes: (Same As: Zyrtec) Start Date: 10/19/18 Stop Date: 10/19/18 Status: Completed Results ELECTROLYTES Most recent to oldest 1 2 3 [Reference Range]: Sodium Lvl [135-145 mEq/L] 142 mEq/L 146 mEq/L 147 mEq/L (10/25/18 3:55 AM) *HI* *HI* (10/24/18 5:30 AM) (10/23/18 5:02 AM) Potassium Lvl [3.5-5.1 3.5 mEq/L 3.8 mEq/L 3.9 mEq/L mEq/L] (10/25/18 3:55 AM) (10/24/18 5:30 AM) (10/23/18 5:02 AM) Chloride Lvl [95-109 mEq/L] 109 mEq/L 113 mEq/L 116 mEq/L (10/25/18 3:55 AM) *HI* *HI* (10/24/18 5:30 AM) (10/23/18 5:02 AM) CO2 [24-32 mEq/L] 24 mEq/L 26 mEq/L 24 mEq/L (10/25/18 3:55 AM) (10/24/18 5:30 AM) (10/23/18 5:02 AM) AGAP [10.0-20.0 mEq/L] 12.5 mEq/L 10.8 mEq/L 10.9 mEq/L (10/25/18 3:55 AM) (10/24/18 5:30 AM) (10/23/18 5:02 AM) CHEM PANEL Most recent to oldest 1 2 3 [Reference Range]: Creatinine Lvl [0.50-1.40 0.93 mg/dL 1.09 mg/dL 0.99 mg/dL mg/dL] (10/25/18 3:55 AM) (10/24/18 5:30 AM) (10/23/18 5:02 AM) eGFR 70 mL/min/1.73m2 1 58 mL/min/1.73m2 2 65 mL/min/1.73m2 3 *NA* *NA* *NA* (10/25/18 3:55 AM) (10/24/18 5:30 AM) (10/23/18 5:02 AM) BUN [7-22 mg/dL] 21 mg/dL 24 mg/dL 23 mg/dL (10/25/18 3:55 AM) *HI* *HI* (10/24/18 5:30 AM) (10/23/18 5:02 AM) B/C Ratio [6-25] 23 22 14 (10/25/18 3:55 AM) (10/21/18 6:04 PM) (10/18/18 4:54 AM) Glucose Lvl [70-99 mg/dL] 84 mg/dL 81 mg/dL 72 mg/dL (10/25/18 3:55 AM) (10/24/18 5:30 AM) (10/23/18 5:02 AM) Total Protein [6.4-8.4 g/dL] 6.2 g/dL 6.4 g/dL 6.3 g/dL *LOW* (10/21/18 6:04 PM) *LOW* (10/25/18 3:55 AM) (10/18/18 4:54 AM) Albumin Lvl [3.5-5.0 g/dL] 2.6 g/dL 2.3 g/dL 2.4 g/dL *LOW* *LOW* *LOW* (10/25/18 3:55 AM) (10/21/18 6:04 PM) (10/18/18 4:54 AM) Globulin [2.7-4.2 g/dL] 3.6 g/dL 4.1 g/dL 3.9 g/dL (10/25/18 3:55 AM) (10/21/18 6:04 PM) (10/18/18 4:54 AM) A/G Ratio [0.7-1.6] 0.7 0.6 0.6 (10/25/18 3:55 AM) *LOW* *LOW* (10/21/18 6:04 PM) (10/18/18 4:54 AM) Calcium Lvl [8.5-10.5 mg/dL] 8.5 mg/dL 8.8 mg/dL 8.4 mg/dL (10/25/18 3:55 AM) (10/24/18 5:30 AM) *LOW* (10/23/18 5:02 AM) Phosphorus [2.5-4.5 mg/dL] 3.5 mg/dL 3.8 mg/dL 2.4 mg/dL (10/25/18 3:55 AM) (10/24/18 5:30 AM) *LOW* (10/20/18 4:59 AM) Magnesium Lvl [1.8-2.4 mg/dL] 1.6 mg/dL 2.0 mg/dL 1.9 mg/dL *LOW* (10/18/18 4:54 AM) (10/16/18 6:45 AM) (10/25/18 3:55 AM) ALT [0-65 unit/L] 15 unit/L 14 unit/L 12 unit/L (10/25/18 3:55 AM) (10/21/18 6:04 PM) (10/18/18 4:54 AM) AST [0-37 unit/L] 12 unit/L 23 unit/L 9 unit/L (10/25/18 3:55 AM) (10/21/18 6:04 PM) (10/18/18 4:54 AM) Alk Phos [39-136 unit/L] 83 unit/L 92 unit/L 96 unit/L (10/25/18 3:55 AM) (10/21/18 6:04 PM) (10/18/18 4:54 AM) Bili Total [0.2-1.3 mg/dL] 0.3 mg/dL 0.2 mg/dL 0.3 mg/dL (10/25/18 3:55 AM) (10/21/18 6:04 PM) (10/18/18 4:54 AM) Procalcitonin Lvl [0.00-0.10 <0.05 ng/mL ng/mL] (10/22/18 4:30 AM) 1Result Comment: The eGFR is calculated using the CKD-EPI formula. In most young , healthy individualsthe eGFR will be >90 mL/min/1.73m2. The eGFR declines with age. An eGFR of 60-89 may be normal insome populations, particularly the elderly, for whom the [...] young, healthy individualsthe eGFR will be >90 mL/min/1.73m2. The eGFR declines with age. An eGFR of 60-89 may be normal insome populations, particularly the elderly, for whom the [...] young, healthy individualsthe eGFR will be >90 mL/min/1.73m2. The eGFR declines with age. An eGFR of 60-89 may be normal insome populations, particularly the elderly, for whom the [...] Range]: 1 2 3 CHD Risk [3.90-5.80] 2.17 *LOW* (10/16/18 6:45 AM) Chol [<=199 mg/dL] 128 mg/dL (10/16/18 6:45 AM) Trig [<=149 mg/dL] 106 mg/dL (10/16/18 6:45 AM) HDL [>=61 mg/dL] 59 mg/dL *LOW* (10/16/18 6:45 AM) LDL (Calculated) [<=99 mg/dL] 48 mg/dL (10/16/18 6:45 AM) VLDL 21 *NA* (10/16/18 6:45 AM) TOXICOLOGY Most recent to oldest 1 2 3 [Reference Range]: Vanco Tr TND 0600 1730 1600 *NA* *NA* *NA* (10/26/18 9:43 AM) (10/22/18 5:19 PM) (10/19/18 3:05 PM) Latosha Lvl 18.5 ug/ml 25.2 ug/ml *NA* *NA* (10/18/18 4:54 AM) (10/17/18 8:29 AM) Latosha Tr 19.1 ug/ml 11.8 ug/ml 13.5 ug/ml *NA* *NA* *NA* (10/26/18 9:43 AM) (10/22/18 5:19 PM) (10/19/18 3:05 PM) IMMUNOLOGY Most recent to oldest [Reference Range]: 1 2 3 Prealbumin [18.0-45.0 mg/dL] 10.6 mg/dL *LOW* (10/16/18 6:45 AM) HEMATOLOGY Most recent to oldest 1 2 3 [Reference Range]: WBC [3.7-10.4 K/CMM] 7.4 K/CMM 8.4 K/CMM 10.5 K/CMM (10/25/18 3:55 AM) (10/22/18 4:30 AM) *HI* (10/21/18 6:04 PM) RBC [4.20-5.40 M/CMM] 2.85 M/CMM 3.00 M/CMM 3.16 M/CMM *LOW* *LOW* *LOW* (10/25/18 3:55 AM) (10/22/18 4:30 AM) (10/21/18 6:04 PM) Hgb [12.0-16.0 g/dL] 8.6 g/dL 9.0 g/dL 9.5 g/dL *LOW* *LOW* *LOW* (10/25/18 3:55 AM) (10/22/18 4:30 AM) (10/21/18 6:04 PM) Hct [36.0-48.0 %] 26.1 % 27.7 % 29.0 % *LOW* *LOW* *LOW* (10/25/18 3:55 AM) (10/22/18 4:30 AM) (10/21/18 6:04 PM) MCV [80.0-98.0 fL] 91.5 fL 92.4 fL 91.8 fL (10/25/18 3:55 AM) (10/22/18 4:30 AM) (10/21/18 6:04 PM) MCH [27.0-31.0 pg] 30.3 pg 30.1 pg 29.9 pg (10/25/18 3:55 AM) (10/22/18 4:30 AM) (10/21/18 6:04 PM) MCHC [32.0-36.0 g/dL] 33.1 g/dL 32.6 g/dL 32.6 g/dL (10/25/18 3:55 AM) (10/22/18 4:30 AM) (10/21/18 6:04 PM) RDW [11.5-14.5 %] 17.6 % 17.5 % 17.8 % *HI* *HI* *HI* (10/25/18 3:55 AM) (10/22/18 4:30 AM) (10/21/18 6:04 PM) MPV [7.4-10.4 fL] 9.2 fL 9.2 fL 9.6 fL (10/25/18 3:55 AM) (10/22/18 4:30 AM) (10/21/18 6:04 PM) Platelet [133-450 K/CMM] 291 K/CMM 330 K/CMM 426 K/CMM (10/25/18 3:55 AM) (10/22/18 4:30 AM) (10/21/18 6:04 PM) Segs [45.0-75.0 %] 52.2 % 45.9 % 55.5 % (10/25/18 3:55 AM) (10/22/18 4:30 AM) (10/21/18 6:04 PM) Lymphocytes [20.0-40.0 %] 36.4 % 44.4 % 34.0 % (10/25/18 3:55 AM) *HI* (10/21/18 6:04 PM) (10/22/18 4:30 AM) Monocytes [2.0-12.0 %] 8.1 % 5.8 % 7.7 % (10/25/18 3:55 AM) (10/22/18 4:30 AM) (10/21/18 6:04 PM) Eosinophils [0.0-4.0 %] 2.4 % 3.1 % 2.0 % (10/25/18 3:55 AM) (10/22/18 4:30 AM) (10/21/18 6:04 PM) Basophils [0.0-1.0 %] 0.9 % 0.8 % 0.8 % (10/25/18 3:55 AM) (10/22/18 4:30 AM) (10/21/18 6:04 PM) Neutrophils # [1.5-8.1 3.8 K/CMM 3.8 K/CMM 5.8 K/CMM K/CMM] (10/25/18 3:55 AM) (10/22/18 4:30 AM) (10/21/18 6:04 PM) Lymphocytes # [1.0-5.5 2.7 K/CMM 3.7 K/CMM 3.6 K/CMM K/CMM] (10/25/18 3:55 AM) (10/22/18 4:30 AM) (10/21/18 6:04 PM) Monocytes # [0.0-0.8 K/CMM] 0.6 K/CMM 0.5 K/CMM 0.8 K/CMM (10/25/18 3:55 AM) (10/22/18 4:30 AM) (10/21/18 6:04 PM) Eosinophils # [0.0-0.5 0.2 K/CMM 0.3 K/CMM 0.2 K/CMM K/CMM] (10/25/18 3:55 AM) (10/22/18 4:30 AM) (10/21/18 6:04 PM) Basophils # [0.0-0.2 K/CMM] 0.1 K/CMM 0.1 K/CMM 0.1 K/CMM (10/25/18 3:55 AM) (10/22/18 4:30 AM) (10/21/18 6:04 PM) RBC Morph Normal Normal (10/22/18 4:30 AM) (10/21/18 6:04 PM) Plt Morph Normal Normal (10/22/18 4:30 AM) (10/21/18 6:04 PM) D-Dimer 0.88 ug/mL FEU *NA* (10/21/18 7:10 PM) Immunizations Given and Recorded Vaccine Date [...] tissue of thorax2 Tracheostomy Completed 1Several spinal [id number] seperate procedures. the last one was more [...] on: 10/15/18 1denies Exercise Assessment and Plan Extracted from: Title: PM&R Discharge Summary Author: Torrey You MD PHD Date: 10/26/18 DISCHARGE SUMMARY ADMISSION DATE: 10/15/2018 DISCHARGE DATE: 10/26/2018 ADMISSION DIAGNOSIS: 10/15/2018 DISCHARGE DIAGNOSIS: 10/26/2018 ATTENDING PHYSICIAN: Dr. Juan Douglas CONSULTING PHYSICIANS: Consulting Physicians: Temo Flanagan MD Office: Service: Infectious Disease Harry Lewis MD Office: Service: Medicine BRIEF SUMMARY OF PRESENT ILLNESS: Jules Cole is a 53-year-old woman with a history of ruptured left EDEN and MCA aneurysms status post clipping (01/21/2016), bifrontal craniotomy (01/30/2017), and endoscopic evaluation (02/09/2017) for pres umed CSF leak, and right occipital FORENSIC COMPUTER EXAMINER shunt placement at [facility] (2016) who presented to [facility] on 10/05/2018 with suspected frontal epidural abscesses. She underwent craniotomy for bilateral c ranialization of sinuses on 10/06 and on vancomycin. PERTINENT PAST HISTORY: PMH: HTN - Hypertension Chronic back pain Aneurysm History of subarachnoid hemorrhage Subarachnoid hemorrhage Cerebral aneurysm Hydrocephalus HTN (hypertension) Hypothyroid Subarachnoid hemorrhage Past Surgical History: Back surgery, craniotomy, FORENSIC COMPUTER EXAMINER shunt placement, tracheotomy and PEG tube placement, and hysterectomy. Family History: Father: HTN. Otherwise denies family history of DM, seizures, cancer. Social History: Patient reports that she is now living with her mother in [facility]. She denies alcohol, tobacco, illicit drug use. Per EMR report from prior inpatient rehabilitation stay: she was previousl y Living with her granddaughter in [place]. She was over 10 years ago. She has 3 children. Attended 1 year of college. She denied ever repeating a grade or any evidence of a learning disabilit y. 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 The patient is [employer]. In terms of pleasurable activities, the patient enjoys spending time with her girlfriends. Family History: Father: Heartburn; High blood pressure; Rectal bleeding Grandparent: High blood pressure Allergies: Allergies: Phenergan(Phenergan), promethazine HOSPITAL COURSE: Briefly, patient continued to improve with physical, occupational, and speech therapies during admission. Keppra 750mg BID continued for seizure prophylaxis and patient continued to remain neurologicall y sta ble. Infectious disease was consulted for continued management of Epidural abscess with recommendations to continue IV vancomycin for 4 week duration from 10/06/18 via RUE PICC line (of note, dose d ecreased at time of discharge - internal medicine senior science consultant discussed with physician Dr. Miramontes at discharge facility). Home medications of melatonin and lunesta held and continued melatonin 3mg qhs a lone as patient reported sleeping well. Fluoxetine 20mg qhs also continued for mood disorder, increased to 40mg PO qd on 10/25 per family report of home dose. Oral bowel medications uptitrated given hard stool however patient remained continent to urine with negative PVRs, continued timed voids. Internal medicine consulted and managing medical issues including tachycardia, HTN, HLD, hypothyroidism, hyp okalemia - patient briefly required IVF from 10/21 - 10/23 given tachycardia, low blood pressure believed to be 2/2 dehydration. Encouraged patient to continue increased PO fluid intake. Patient remained medically stable and ready for discharge on 10/26 to SNF with instructions to take medications as prescribed, follow-up with PCP, Infectious disease, and Neurosurgery Trauma Clinic in 2 weeks after discharge with repeat CTH. DISCHARGE FIM SCORES: PT Current Status PT Treatment Recommendations PT Treatment Recommendations: Per H&P, "This is a 53-year-old woman with a history of ruptured left EDEN and MCA aneurysms status post clipping (01/21/2016) , bifrontal craniotomy (01/30/2017), and endo scopic evaluation (02/09/2017) for presumed CSF leak, and right occipital FORENSIC COMPUTER EXAMINER shunt placement at [facility] (04/2017) who presented to [facility] on 2018 with suspected frontal epidural abscesses. 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 Pt presents to [facility] with impairments and functional limitations of deconditioning (impaired activity tolerance) , poor sleep/wake cycles (lethargic during evaluation), impaired BP control ( hypotensive at eval with B TAM hose donned), impaired posture from h.o. surgeries with severe kyphosis and scoliosis affectin g ability to right head and causing pain (h.o. significant back pain/neck pain) , impaired sitting balance (Supervision), impaired standing balance (Min A for UE support), impaired transfer status (toile t, bed, w/c, and tub bench with Min A), and impaired ability to perform ADLs ( poor initiation/flat affect). Pt's prior level of functioning was Mod I- Independent with ADLs, bed mobility, walking, and s tairs prior to recent diagnosis. Pt was also living with her mother who assisted as needed and pt's daughter reports taking care of pt's IADLs. Pt recommended IP rehab to address the above, improve pt 's independence, and to decrease caregiver burden on her mother who she lives with. Performed: 10/16/18 14:41 Mobility Transfer Bed to and From Chair: Minimal contact assistance Performed: 14:53 Ambulation Level Surfaces Ambulation Device: Walker, rolling Performed: 10/25/18 17:45 Ambulation Distance: 150 ft Performed: 10/25/18 17:45 Ambulation Uneven Surfaces Locomotion Walk: Min A - 4 Performed: 10/25/18 17:45 Locomotion Stair: Does not occur Performed: 10/25/18 17:45 Bed,Chair,Wheelchair: Min A - 4 Performed: 10/25/18 17:45 Wheelchair Mobility Level Surfaces Wheelchair Mobility Level Distance: 150 ft Performed: 10/25/18 14:53 OT Current Status OT Treatment Recommendations OT Treatment Recommendations: Pt presents at [facility] Inpatient Rehabilitation for comprehensive OT/PT/ST. Pt presents physical, cognitive and emotional deficits s/p abscess reslting in overall weakness an d poor endurance. Pt presents with volitional use of BUE as well as BLE. Pt with good overall movement and use of BUE but limited with no overhead movement , due to excessive trunk flexion and poor head control due to mechanial disadvantages of spine and bilateral scapular malalignment. Pt did present with some cognitive deficits including confabulation, delayed processing, recall and flat affect. Pt c urrently requires assistance for all ADL including toileting secondary to decrease strength and endurance. Pt requires assistance for all ambulation at this time and would be bedbound without the use of a wheelchair. Pt presents with decrease problem solving, executive functioning , and reasoning skills require for work. Pt requires 24/7 supervision for safety , mobility, toileting, and medication manag ement. Pt is appropriate for inpatient rehabilitation secondary to deficits in endurance, ADLs, iADLs, balance, mobility, ROM, strength, proprioception, and coordination. Pt would benefit from skilled O ccupational therapy to maximize functional independence, family education and evaluation of appropriate equipment to decrease burden of care for ADL.Equipment : Pt would benefit from the use of an uprigh t manual for functional mobility. Pt present in rental wheelchair per "self- report". Performed: 10/16/18 09:14 ADL Eating: Supvn/Setup - 5 Performed: 10/25/18 16:30 Grooming: Min A - 4 Performed: 10/25/18 16:30 Bathing: Max A - 2 Performed: 10/25/18 16:30 Upper Extremity Dressing: Mod A - 3 Performed: 10/25/18 16:30 Lower Extremity Dressing: Mod A - 3 Performed: 10/25/18 16:30 Toileting: Tot A - 1 Performed: 10/26/18 09:00 Toilet Transfer: Mod A - 3 Performed: 10/25/18 17:45 Shower Transfer: Does not occur Performed: 10/25/18 14:53 CRANE CREW SUPERVISOR Current Status Severity Level Comprehension: Standby prompting - 5 Performed: 10/25/18 09:05 Comprehension Mode: Auditory Performed: 10/25/18 09:05 Expression: Moderate prompting - 3 Performed: 10/25/18 09:05 Expression Mode: Vocal Performed: 10/25/18 09:05 Memory: Maximal prompting - 2 Performed: 10/25/18 09:05 Problem Solving: Moderate prompting - 3 Performed: 10/25/18 09:05 Social Interaction: Minimal prompting - 4 Performed: 10/25/18 09:05 PROCEDURES PERFORMED DURING ADMISSION: Imaging perfored during admission included CXR, KUB PHYSICAL EXAM (at time of discharge): Vitals Tmp(F) Pulse BP RR SpO2 FIO2 10/26 07:30 97.7 88 132/70 17 --- --- 10/25 18:00 97.9 100 104/57 -- --- --- 10/25 13:30 ---- 93 96/58 -- --- --- 10/25 07:34 ---- 89 113/63 17 --- --- 10/24 19:30 98.0 86 122/63 18 --- --- 24 Hr Tmax: 97.9F (36.61c) at 10/25 18:00 Vital Signs are the last 5 in the past 48 hours. PHYSICAL EXAM: Gen: sitting in WC, no apparent distress; +kyphotic, head leaning over to chest HEAD: s/p craniotomy for b/l cranialization of sinuses EYES: no scleral icterus CV: Well-perfused, no extremity edema, +tachycardia, normal rhythm, no murmurs PULM: breathing comfortably on RA, CTA b/l NEURO; awake, alert. MUSC: moving all exremities spontaneously PSYCH: normal affect and mood; calm and cooperative SKIN:s/p cranialization of sinuses - incision DISCHARGE MEDICATIONS: Discharge Medications levETIRAcetam 750 mg oral tablet :750 mg, 1 tab, PO, BID, 180 tab, 0 Refill(s) Ordered by: Angeles Haque MD - 10/26/2018 13:22 vancomycin 750 mg intravenous injection :750 mg, IV, Q12H, for 8 day, Continue at least through 11/02/18 for minimum course of 4 weeks., 16 bag, 0 Refill(s) Ordered by: Juan Douglas MD - 10/25/2018 18:43 CONDITION OF PATIENT ON DISCHARGE: medically stable DISPOSITION/INSTRUCTIONS/FOLLOW UP: Discharge to: SNF Helpful Information Security System Installer: Security System Installer: Spencer Cox [phone] Comments: Please call with any questions Antique Clocks Repairer: Antique Clocks Repairer: Aissatou Suarez [phone] Comments: Please call with any questions or concerns Follow up Care Provider: Juan Douglas, Physical Medicine/Rehabilitation Service Address: [address] [place] [phone] Provider: Tania Brandt, Physical Medicine/Rehabilitation Service Address: [address] [place] [phone] Comments: [phone] Please follow up in the [facility] Provider: Mahamed Castellanos, Neurosurgery Service Address: [address] [place] [id number] Comments: [phone] Please follow up in the nsgy clinic in [address] of the Head done. Other: PCP Comments: Follow up in 1-2 weeks Activity: As tolerated. Diet: Diet Adult Regular -- 10/15/18 12:08:00 PRIZE FIGHTER Follow up Appointments: The discharge plan was reviewed and discussed with the patient/family and appropriate education and counseling was provided. They were given the opportunity to ask any questions which were answered to the best of my knowledge. Extracted from: Title: WARD Lockhart Author: Romulo Villasenor NP Date: 10/26/18 Subjective Pt in bed, easily arousable, no new complaints. No new issues reported by nursing. No acute MS changes. Review of Systems pt is an unreliable historian HEENT: _ Respiratory: _ Cardiovascular: _ Gastrointestinal: _ Genitourinary: _ Integumentary: _ Extremities: _ Neurologic: _ Subhash/Lymph: _ Endocrine: _ Psychiatric: _ Health Status Allergies: Allergic Reactions (Selected) Severity Not Documented Phenergan- Phenergan. Promethazine- No reactions were documented. Medications Current medications: (Selected) Prescriptions Prescribed Dulera 100 mcg-5 mcg/inh inhalation aerosol: See Instructions, INHALE 2 PUFFS TWICE DAILY., 13 unknown unit, 11 Refill(s) levETIRAcetam 750 mg oral tablet: 750 mg, 1 tab, PO, BID, 180 tab, 0 Refill(s) lidocaine topical patch (5% film): 1 patch, TOP, Daily, 30 patch, 0 Refill(s) vancomycin 750 mg intravenous injection: 750 mg, IV, Q12H, for 8 day, Continue at least through 11/02/18 for minimum course of 4 weeks., 16 bag, 0 Refill(s) Documented Medications Documented FLUoxetine 40 mg oral capsule: 40 mg, 1 cap, PO, Daily, 0 Refill(s) Flonase 0.05 mg/inh nasal spray: 100 microgram, 2 spray, Each Affected Nostril , Daily, 0 Refill(s) Multiple Vitamins with Minerals oral tablet: PO, Daily, 0 Refill(s) Vitamin D3: 2,000 IntlUnit, PO, QAM, 0 Refill(s) atorvastatin 40 mg oral tablet: 40 mg, 1 tab, PO, Bedtime, 0 Refill(s) cetirizine 10 mg oral tablet: 10 mg, 1 tab, PO, Daily, 0 Refill(s) docusate sodium 100 mg oral capsule: 200 mg, 2 cap, PO, BID, 0 Refill(s) guaiFENesin 600 mg oral tablet, extended release: 600 mg, 1 tab, PO, Q12H, 0 Refill(s) lactobacillus acidophilus: 1 tab, PO, BID, 0 Refill(s) levothyroxine 88 mcg (0.088 mg) oral tablet: 88 microgram, 1 tab, PO, Q630AM, 0 Refill(s) melatonin 3 mg oral tablet: 3 mg, PO, Q8PM, 0 Refill(s) metoprolol tartrate 25 mg oral tablet: 6.25 mg, 0.25 tab, PO, BID, 0 Refill(s) nystatin topical 100,000 units/g ointment: 1 appl, TOP, BID, 0 Refill(s) potassium chloride 20 mEq oral tablet, extended release: 40 mEq, 2 tab, PO, Daily, 0 Refill(s) potassium phosphate-sodium phosphate 250 mg-280 mg-160 mg oral powder for reconstitution: 1 pkt, PO, Daily, 0 Refill(s) senna 8.6 mg oral tablet: 17.2 mg, 2 tab, PO, QNoon, 0 Refill(s), No qualifying data available . 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 / SNOMED CT 4548307123 / Confirmed Diarrhea / SNOMED CT 916463619 / Confirmed Dysphagia / SNOMED CT 16039655 / Confirmed Fall / SNOMED CT 1743113 / Confirmed Fever / SNOMED CT 7267785520 / Confirmed H/O tracheostomy / SNOMED CT [id number] / Confirmed Hemiparesis affecting right side as late effect of stroke / SNOMED CT 3248794992 / Confirmed Hydrocephalus / SNOMED CT 6002772147 / Confirmed Hypothyroidism / SNOMED CT 044947401 / Confirmed Hypoxia / SNOMED CT 9611492707 / Confirmed ICH (intracerebral hemorrhage) / SNOMED CT 806393862 / Confirmed MDR Pseudomonas / SNOMED CT 18371136 / Confirmed Problem added by Discern Expert. 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 Sputum - 05/06/2017 Tracheal Aspirate - 05/22/2017 Tracheal Aspirate - 06/17/2017 Nontraumatic intracerebral hemorrhage in hemisphere, cortical / SNOMED CT 09027638 / Confirmed Pneumocephalus / SNOMED CT 19730322 / Confirmed Pneumonia / SNOMED CT 865596534 / Confirmed Respiratory failure / SNOMED CT 9472004379 / Confirmed SAH - Subarachnoid hemorrhage / SNOMED CT 1495464453 / Confirmed Stroke / SNOMED CT 556429877 / Confirmed Resolved: Aneurysm / SNOMED CT 6229355512 Clipped in 2015 Resolved: Cerebral aneurysm / SNOMED CT 831297879 Resolved: Chronic back pain / SNOMED CT 656155389 Resolved: History of subarachnoid hemorrhage / SNOMED CT 110464583 Resolved: HTN (hypertension) / SNOMED CT 8595599954 Resolved: HTN - Hypertension / SNOMED CT 4160420430 Resolved: Hydrocephalus / SNOMED CT 546200114 Resolved: Hypothyroid / SNOMED CT 32026673 Resolved: Subarachnoid hemorrhage / SNOMED CT 8713868298 Resolved: Subarachnoid hemorrhage / SNOMED CT 4305680461 Canceled: MRSA infection / SNOMED CT 1674614465 Sputum - 05/06/2017, Active Problems (25) Hypercapnia Acute respiratory failure Anemia Chronic anemia 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 Diarrhea Dysphagia Fall Fever H/O tracheostomy Hemiparesis affecting right side as late effect of stroke Hydrocephalus Hypothyroidism Hypoxia ICH (intracerebral hemorrhage) MDR Pseudomonas Meningoencephalitis Metabolic encephalopathy 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 Eye: Normal conjunctiva. HENT: Oral mucosa is moist. Neck: Supple. Respiratory: Lungs are clear to auscultation, Respirations are non-labored, Breath sounds are equal, Symmetrical chest wall expansion. Cardiovascular: Normal rate, Regular rhythm, No edema. Gastrointestinal: Soft, Non-tender, Non-distended, Normal bowel sounds. Mental status/ Cognition Alert. Psychiatric: Cooperative. Results Review Results review Labs (Last four charted values) WBC 7.4 (FEB 20) 8.4 (FEB 17) H 10.5 (FEB 16) 7.7 (FEB 13) Hgb L 8.6 (FEB 20) L 9.0 (FEB 17) L 9.5 (FEB 16) L 8.7 (FEB 13 ) Hct L 26.1 (FEB 20) L 27.7 (FEB 17) L 29.0 (FEB 16) L 26.8 ( FEB 13) Plt 291 (FEB 20) 330 (FEB 17) 426 (FEB 16) 347 (FEB 13) Na 142 (FEB 20) H 146 (FEB 19) H 147 (FEB 18) 144 (FEB 17) K 3.5 (FEB 20) 3.8 (FEB 19) 3.9 (FEB 18) 4.3 (FEB 17) CO2 24 (FEB 20) 26 (FEB 19) 24 (FEB 18) 28 (FEB 17) Cl 109 (FEB 20) H 113 (FEB 19) H 116 (FEB 18) H 110 (FEB 17) Cr 0.93 (FEB 20) 1.09 (FEB 19) 0.99 (FEB 18) 1.09 (FEB 17) BUN 21 (FEB 20) H 24 (FEB 19) H 23 (FEB 18) H 29 (FEB 17) Glucose Random 84 (FEB 20) 81 (FEB 19) 72 (FEB 18) 97 (FEB 17) Mg L 1.6 (FEB 20) 2.0 (FEB 13) 1.9 (FEB 11) Phos 3.5 (FEB 20) 3.8 (FEB 19) L 2.4 (FEB 15) L 2.4 (FEB 13) Ca 8.5 (FEB 20) 8.8 (FEB 19) L 8.4 (FEB 18) 8.7 (FEB 17) Lab results 10/26/2018 09:43 Vanco Tr TND 0600 Vanco Tr 19.1 ug/ml NA 10/25/2018 03:55 Sodium Lvl 142 mEq/L Normal Potassium Lvl 3.5 mEq/L Normal Chloride Lvl 109 mEq/L Normal CO2 24 mEq/L Normal AGAP 12.5 mEq/L Normal Creatinine Lvl 0.93 mg/dL Normal eGFR 70 mL/min/1.73m2 NA BUN 21 mg/dL Normal B/C Ratio 23 Normal Glucose Lvl 84 mg/dL Normal Total Protein 6.2 g/dL LOW Albumin Lvl 2.6 g/dL LOW Globulin 3.6 g/dL Normal A/G Ratio 0.7 Normal Calcium Lvl 8.5 mg/dL Normal Phosphorus 3.5 mg/dL Normal Magnesium Lvl 1.6 mg/dL LOW ALANINE AMINOTRANSFERASE 15 unit/L Normal ASPARTATE TRANSAMINASE 12 unit/L Normal Alk Phos 83 unit/L Normal Bili Total 0.3 mg/dL Normal WBC X 10x3 7.4 K/CMM Normal RBC X 10x6 2.85 M/CMM LOW Hgb 8.6 g/dL LOW Hct 26.1 % LOW MCV 91.5 fL Normal MCH 30.3 pg Normal MCHC 33.1 g/dL Normal RDW 17.6 % HI MPV 9.2 fL Normal Platelet 291 K/CMM Normal Segs 52.2 % Normal Lymphocytes 36.4 % Normal Monocytes 8.1 % Normal Eosinophils 2.4 % Normal Basophils 0.9 % Normal Neutrophils # 3.8 K/CMM Normal Lymphocytes # 2.7 K/CMM Normal Monocytes # 0.6 K/CMM Normal Eosinophils # 0.2 K/CMM Normal Basophils # 0.1 K/CMM Normal Impression and Plan Dehydration - Cont IVF until further notice, check BMP in am. Wrote MD to Nurse that she reqires significant help with eating and drinking and to please assist her. 10/22 - labs noted- will dc IVF and check labs in AM - - Na, BUN and creat still elevated- give 2 liters D5W, labs in AM -. Lab values improved. Check labs in 2 days - - good response to IVF - HTN/Tachycardia - Metoprolol. Added parameters 10/17 - Hold metoprolol and monitor 10/19 - HR up to 126 without beta ashia, added back 10/20 pm. - good response to metoprolol - Hyponatremia- mild, Weekly and prn labs. Na slightly elevated- dc IVF and labs in AM -. Still slightly elevated- give 2 liters D5W 10-24. Now wnl - Hypophos - check in am and add neutra phos if still low. 10/19 - Nutra Phos pkt added daily 10/20. check PO 4 in AM -. PO4 wnl- cont current med for now 10-24 Epidural Abscess- Vanc, dose recently adjusted, trough w q 4 dose, weekly BMP, consult Dr Flanagan - holding Vanc 10/07 elevated trough, check in am. 10/17 - Restarted at 500mg Q24hr. 10/19 - vanc tr noted- defer changes to Dr Flanagan 10-23 Hypothyroidism- Levothyroxine, follow labs. TSH wnl Depression- change Fluoxetine to 40 mg q AM 10-23 Insomnia- pt on 1 mg Lunesta and Melatoninat home- . Cont w Melatonin for now - pt slept 10 hrs last night, cont Melatonin 10-25 Seasonal Allergies - start zyrtec and mucinex 10/19. Symptoms improved 10/20 SZ DO- Hang HLD - statin Hypokalemia, replete w 40 meq x1, 20 meq daily. K is wnl 2-18 Leukocytosis- mild, afebrile, Weekly and prn labs. WBC wnl, afebrile 2- Anemia- Weekly and prn labs. compensating clinically . Hgb stable 2-. Hgb drop likely dilutional 10/07 IVF - AVM - resection, FORENSIC COMPUTER EXAMINER shunt for hydrocephalus GERD- per chart. PPI if needed Hypoalbuminemia - prealbu 10.6. RD involved. Discussed in Pharmacy Rounds 10/19 Addendum by Romulo Villasenor CONTRACT CLERK on Vanc tr 19.1. I have spoken to Dr Miramontes 10/26/2018 15:39 at [facility] and reported level and recommended dose be dropped to 750 mg daily- per [facility]. Addendum by Harry Lewis MD on Pt seen and examined. Agree with the 10/27/2018 07:04 physical exam and plan documented by the CONTRACT CLERK. Extracted from: Title: Infection Admission H&P * Author: Temo Flanagan MD Date: 10/18/18 Impression and Plan This is a 53-year-old woman with a history of ruptured left EDEN and MCA aneurysms status post clipping (01/21/2016), bifrontal craniotomy (01/30/2017), and endoscopic evaluation (02/09/2017) for presumed CS F leak, and right occipital FORENSIC COMPUTER EXAMINER shunt placement at [facility] (04/2017) who presented to [facility] on 10/05/2018 with suspected frontal epidural abscesses. She underwent craniotomy for bilateral craniali zation of sinuses on 10/06 and on vancomycin. for Corynebacterium infection Epidural abscess: MRI brain 10/05/2018 demonstrating large transosseous, frontal, subcutaneous, and epidural rim-enhancing collection. 10/06/2018 underwent craniotomy for bilateral cranialization of sinuses Cultures growing Corynebacterium with a very low AR for Vancomycin Planning 4+ weeks RX starting 10/06 Will follow Thank you for the consult Extracted from: Title: Physical Medicine and Author: Brice Camacho MD Date: 10/15/18 Rehabilitation Brain Injury Rehabilitation History and Physical Chief Complaint: Suspected epidural abscess Date of Admission: 10/15/2018 Transferring facility: [facility], neurosurgery service Admitting Physician: Dr. Cricket Motta covering for Dr. 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 Limitations: Interview, responses, and physical exam documented in this note are limited and validity is in question due to patient's brain injury and no family at bedside. History of Present Illness: This is a 53-year-old woman with a history of ruptured left EDEN and MCA aneurysms status post clipping (01/21/2016), bifrontal craniotomy (01/30/2017), and endoscopic evaluation (02/09/2017) for presumed CS F leak, and right occipital FORENSIC COMPUTER EXAMINER shunt placement at [facility] (04/2017) who presented to [facility] on 10/05/2018 with complaints of swelling to forehead with so me redness but no fevers or headaches. CT and MRI brain demonstrating large transosseous, frontal, subcutaneous, and epidural rim-enhancing collection at least 7.4 cm long; concerning for epidural absc ess. Neurosurgery and infectious diseases were consulted. She underwent craniotomy for bilateral cranialization of sinuses on 10/06 and has been on antibiotics for this suspected abscess. Cultures obta ined intraoperatively have grown few corynebacterium and is on vancomycin via right PICC line. 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 This will be her third inpatient rehabilitation stay, previously discharged on 05/20/2016 and 06/30/2017. On interview, she is sleepy but easily awoken. She denies pain, discomfort, headache. Since he r last discharge from [facility], she is had her PEG tube removed and is now on a regular diet. She is now living with her mother in [facility]. Past Medical History: 1. Hypertension. 2 . Hypothyroidism. 3. History of prior cerebral aneurysm. 4. Arteriovenous mal formation. 5. Hydrocephal us, status post FORENSIC COMPUTER EXAMINER shunt. 6. Reflux disease. 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 8. Hyperlipidemia. 9. Seizure disorder. Past Surgical History: Back surgery, craniotomy, FORENSIC COMPUTER EXAMINER shunt placement, tracheotomy and PEG tube placement, and hysterectomy. Family History: Father: HTN. Otherwise denies family history of DM, seizures, cancer. Social History: Patient reports that she is now living with her mother in [facility]. She denies alcohol, tobacco, illicit drug use. Per EMR report from prior inpatient rehabilitation stay: she was previousl y Living with her granddaughter in [place]. She was over 10 years ago. She has 3 children. Attended 1 year of college. She denied ever repeating a grade or any evidence of a learning disabilit y. 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 The patient is [employer]. In terms of pleasurable activities, the patient enjoys spending time with her girlfriends. Current Function: Bathing : Distant S, Setup Bed Mobility : MIN A Bed Wheelchair Transfer : CGA Bladder : Distant S, Setup Bowel : Distant S, Setup Eating : Setup, Distant S Grooming : Setup, Distant S Locomotion Walk : MIN A Locomotion Wheelchair : Does not occur Lower Body Bathing : Setup, Distant S Lower Extremity Dressing : Setup, Distant S Rolling-Left to Right : [facility] Rolling-Right to Left : [facility] Toilet Transfer : MIN A Sit to Stand : MIN A Supine to Sit : [facility] Tub, Shower Transfer : MIN A Upper Body Bathing : Setup, Distant S Upper Extremity Dressing : Setup, Distant S Allergies: Phenergan, promethazine Medications: Medications (22) Active Scheduled Meds (15): 10/15/18 FLUoxetine 20 mg PO Bedtime 10/15/18 atorvastatin 40 mg PO Bedtime 10/16/18 cholecalciferol (Vitamin D3) 2,000 IntlUnit PO QAM 10/15/18 docusate (docusate sodium 100 mg oral capsule) 100 mg PO BID 10/15/18 heparin 5,000 unit SUB-Q Q8H 10/15/18 levETIRAcetam (levETIRAcetam 250 mg oral tablet) 750 mg PO Q12H 10/16/18 levothyroxine 88 microgram PO Q630AM 10/16/18 lidocaine topical (lidocaine topical patch (5% film)) 1 patch TOP Daily 10/15/18 melatonin (melatonin 3 mg oral tablet) 3 mg PO Q8PM 10/15/18 metoprolol (metoprolol tartrate) 6.25 mg PO BID 10/16/18 multivitamin with minerals 1 tab PO Daily 10/16/18 potassium chloride (potassium chloride 20 mEq oral tablet, extended release) 40 mEq PO Daily 10/16/18 remove patch 1 patch TOP Bedtime 10/15/18 senna 17.2 mg PO QNoon 10/15/18 vancomycin + Sodium Chloride 0.9% IV 100 mL 500 mg IVPB [id number] 100 ml /hr Unscheduled Meds: None PRN Meds (5): 10/15/18 acetaminophen 650 mg PO Q6H 10/15/18 levETIRAcetam 1,500 mg IV PRN 10/15/18 midazolam 5 mg IM PRN 10/15/18 sodium chloride (Saline Flush 0.9%) 10 mL IVP PRN 10/15/18 tramadol (tramadol 50 mg oral tablet) 50 mg PO Q6Hnow One Time Meds (2): 10/14/18 (Completed) potassium chloride 20 mEq IVPB ONCE 50 ml/hr 10/15/18 (Ordered) potassium chloride (potassium chloride 20 mEq oral tablet, extended release) 40 mEq PO ONCE Continuous Infusions: None Review of Systems: Constitutional: Negative for fevers or chills. Eyes: Negative for blurry vision or double vision. ENT: Negative for coughing, choking, or difficulty with swallowing. CV: Negative for chest pain or palpitations. Respiratory: Negative for cough or shortness of breath. GI: Negative nausea, vomiting, or abdominal pain. : Negative for difficulty urinating or pain with urination. Skin: Negative for rashes or wounds. MSK: Negative for leg swelling, joint pain, or muscle aches. Neurologic: +Right arm and leg weakness. Negative for numbness. Physical Examination: Constitutional: No acute distress. Laying in bed, appearing comfortable, sleepy. Eyes: Conjunctivae and lids normal. Pupils equal, round, reactive to light. Normal visual acuity. EOM intact. Ears, Nose, Mouth, Throat: External ears normal, no lesions or deformities. External nose normal, no lesions or deformities. Hearing grossly intact. Cardiovascular: S1, S2, normal rhythm. No murmur, rub, or gallop. No lower limb edema, limbs warm. Respiratory: Clear to auscultation bilaterally, normal respiratory effort on room air. Gastrointestinal: Soft, non-tender, and non-distended abdomen. No rebound tenderness or guarding. Bowel sounds normal. Genitourinary: No Dumont Musculoskeletal: Normal mobility and no deformity of head and neck. Normal AROM of bilateral upper and lower limbs. No joint enlargement or tenderness Skin: bifrontal sutures in place, clean and dry. Scab over left scapula from previous shear injury. Sacral blanchable erythema at gluteal cleft. Psychiatric: Alert and oriented to person, "hospital", "2019". Responds appropriately to questions. No anxiety or agitation Neurologic: Sensation intact to light touch to bilateral upper and lower limbs. Reflexes: Biceps Quad Right 2 3 Left 2 2 Tone: no evidence of increased tone in LUE. Increased tone/contracture in right ankle plantar flexors. Unable to assess other limbs, non-cooperative with exam Clonus: no clonus bilaterally Mental status: Level of consciousness: Sleepy but easily awake to voice Orientation: oriented to person, "hospital", "2019" Attention/Concentration: Able to answer simple questions with hand gestures indicating yes and now Speech and language: Speech is fluent, repetition intact, comprehension intact. Imaging: EXAM: CT HEAD WITHOUT CONTRAST DATE: 10/05/2018 746 PRIZE FIGHTER IMPRESSION: 1. Since study dated 10/03/2017, interval resolution of previously identified extra-axial pneumocephalus along the bilateral anterior frontal convexity which is largely replaced by mild complex fluid co llection. Overlying frontal bone at midline demonstrates significant demineralization. Overlying frontal scalp edema with questionable fluid collection. Although not definitely visualized, possibility o f direct communication/sinus tract is difficult to exclude. Superimposed infection cannot be completely excluded on CT Scan. With continued clinical concern, MRI of the brain with and without contrast is recommended. 2. Interval decrease in size of lateral ventricles. Remainder of the findings are stable from prior study. EXAM: CT SINUS WITHOUT CONTRAST DATE: 10/05/2018 15:00 PRIZE FIGHTER IMPRESSION: 1. Poor demonstration of the transosseous subcutaneous and epidural frontal collection traversing through the bone at the site of the right paramedian frontal craniotomy hardware. 2. The frontal sinuses inferior to the craniotomy are mostly opacified. 3. Prior left uncinectomy, partial ethmoidectomy, partial turbinectomy. EXAM: MRI BRAIN WITH AND WITHOUT CONTRAST DATE: 10/05/2018 IMPRESSION: 1. Large transosseous, frontal, subcutaneous, and epidural rim-enhancing collection is at least 7.4 cm long. Findings could either represent infection ( especially given the overlying skin edema) or a m ucocele (given the location with respect to the frontal sinuses and frontal craniotomy). Correlation with fluid sampling would best differentiate the two. 2. Diffuse dural thickening, intense enhancement, and intermediate restriction , favored to be related to intracranial hypotension over infection (still a possibility although less likely). 3. Left greater than right frontal parenchymal T2/FLAIR signal abnormality of indeterminate chronicity, without pathologic parenchymal enhancement. 4. Extensive remote prior parenchymal injury, intracranial hemorrhage, and aneurysm clip ligation. TTE 10/05/2018 Conclusions 1) The LV chamber size is normal with normal systolic function.LV EF is estimated to be 60-65%. 2) Right ventricular size and systolic function are normal. 3) Both atria are normal in size. 4) Aortic sclerosis with no stenosis. 5) Mild aortic regurgitation. 6) Unable to estimate right ventricular systolic pressure due to lack of TR jet. 7) Aortic root dimensions are within normal range. 8) There is no pericardial effusion. 9) Compared to prior echocardiogram on [id number], there is mild aortic regurgitation. Impression: This is a 53-year-old woman with a history of ruptured left EDEN and MCA aneurysms status post clipping (01/21/2016), bifrontal craniotomy (01/30/2017), and endoscopic evaluation (02/09/2017) for presumed CS F leak, and right occipital FORENSIC COMPUTER EXAMINER shunt placement at [facility] (04/2017) who presented to [facility] on 10/05/2018 with suspected frontal epidural abscesses. She underwent craniotomy for bilateral cranialization of sinuses on 10/06 and on vancomycin. Impairments: Nontraumatic ICH Suspected epidural abscess Right hemiplegia Cognitive deficits Spasticity Insomnia Mood disorder Neurogenic bladder, at risk Neurogenic bowel, at risk Pain Essential hypertension Hyperlipidemia Hypothyroidism Hypokalemia Activity limitations: Decreased mobility Decreased transfers Decreased speech Decreased ADLs Participation restrictions: Driving Return to work Taking care of the home Recreation and leisure activities Mandaeism activities Community reintegration Plan: Rehabilitation: Patient will require physician oversight and coordination of an interdisciplinary team, 24 hour rehabilitation nursing for management of bowel, bladder, skin integrity, medication management, safety daisy sures and preventing risk factors and complications. The patient will require a minimum of 3 hours of therapy a day for 5-7 days a week throughout the hospitalization, including at least the followin-2 hours Physical Therapy, 1-2 hours Occupational Therapy and Exercise and Multidisciplinary Groups. These disciplines will be needed in order to improve the patient s impairments in mobility, transf ers, activities of daily living, and evaluation of durable medical equipment if needed at discharge. In addition, the patient may also receive 1-2 additional hours of one or all of the following: Speech Language Pathology, Swallowing Training, Neuropsychology, Cognitive Training, Behavior Training, Music Therapy and Therapeutic Recreation as appropriate. Social Work and Case Management will be consult ed to assist with discharge planning and family coping strategies. Nontraumatic ICH: - From AVM rupture in January 2016 and again in January 2017. -history of ruptured left EDEN and MCA aneurysms status post clipping (01/21/2016 ), bifrontal craniotomy (01/30/2017), and endoscopic evaluation (02/09/2017) for presumed CSF leak, and right occipital FORENSIC COMPUTER EXAMINER shunt placement at [facility] (04/2017) - Continue Keppra 750 mg BID - Stable neuro status. Epidural abscess: MRI brain 10/05/2018 demonstrating large transosseous, frontal, subcutaneous, and epidural rim-enhancing collection. 10/06/2018 underwent craniotomy for bilateral cranialization of sinuses ID Dr. Flanagan following. Continue vancomycin. Dr. Harry Lewis and Romulo Villasenor NP following. Follow-up trough 2/11 a.m. Follow-up intraoperative culture of epidural fluid Cognitive deficits: - Patient with significant cognitive deficits due to nontraumatic ICH and hydrocephalus. - Continue therapies with CRANE CREW SUPERVISOR. Neuropsych consulted. Insomnia: - Patient is noted to have long-standing sleep issues. -During prior rehabilitation admission: Multiple sleep meds trialed (Melatonin , Trazodone, Ativan, Ambien, Ramelteon, and Mirtazapine). None were helpful. Lunesta finally added and sleep improved -Continue melatonin for now and monitor sleep patterns. Mood disorder: - Admitted on Fluoxetine. Spasticity: - increased tone/contracture in right ankle plantar flexors. - PT and OT to continue aggressive stretching, ROM exercises, bracing, splinting, casting and positioning as appropriate. Hemiplegia: - Right hemiplegia due to AVM rupture. - Continue aggressive rehabilitation program with PT and OT to work on strengthening and overall function. Nutrition: - Admitted on regular diet. - Continue intense therapies with CRANE CREW SUPERVISOR to improve swallow function. - Framing And Hanging consulted. Follow-up prealbumin level Neurogenic bowel, at risk: - Patient on senna-docusate to facilitate regular BMs. - Monitor BMs closely. Goal 1BM/day. -Follow up KUB to assess stool burden Neurogenic bladder, at risk: - Patient at risk of bladder dysfunction as a result of brain injury and recent repeat craniotomy. - Start timed voids, monitor PVRs, and cath for PVR greater than 200 mL. Essential HTN: Goal systolic blood pressure between 100-150 -Admitted on metoprolol tartrate 6.25 mg every 12 hours HLD: - Continue atorvastatin. - Follow up lipid panel Hypothyroidism: - continue synthroid - follow up TFTs Hypokalemia: -repleted. Follow up repeat labs. Pain: -Denies pain at this time. - Tylenol PRN, Tramadol PRN - Continue to monitor pain closely. Wound: Craniotomy sutures bifrontal, blanchable sacral erythema, left scapula prior shear injury -Wound care nurse consulted Prophylaxis: - DVT: Continue heparin. Mobilize as tolerated. 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 Date to be determined in team rounds. Prognosis: Good ELOS: 1 week Follow-up: follow up with trauma clinic in the neurosurgery clinic in [address] head without contrast. Call [phone] for appointment. Brice Camacho PGY-2, Physical Medicine and Rehabilitation MSO [id number] Addendum by Juan Douglas MD on PMR ATTENDING/POST-ADMISSION PHYSICIAN EVALUATION 10/16/2018 11:02 I saw, examined and discussed the patient with Dr. Camacho and agree with his documentation. The patient presents for inpatient rehabilitation following new functional deficits following intracranial absces s resection on 10/06/18. There are no medical or functional changes since the preadmission assessment. The patient has ongoing medical and functional impairments that can safely be met in the IRF setting, and these needs cannot be adequately addressed in a lower level of care, as the patient requires 24hr nursing and daily medical management. The patient also has comorbidities including nontraumatic ICH , cognitive deficits, right hemiparesis, dysphagia, hypothyroidism, HTN, HLD , malnutrition, and insomnia and the combination of the intracranial abscess and comorbidities also necessitate close medical supervision, specialized rehabilitation nursing, and skilled therapy intervention. The patient is able to participate in and benefit from an acute inpatient rehabilitation program, with anticipated lavon urable gains as a result of this program. Prior to the intracranial abscess the patient was set up/supervision to modified independent with all ADLs and mobility. Currently, the patient requires assista nce for both ADLs and mobility. There are no obvious barriers to disposition to the community following the IRF admission. Individualized Plan of Care: Patient will require [...] discharge planning and family coping strategies. Prognosis: Good Estimated Length of Stay: 10-14 days Discharge Disposition: To home Date of service: 10/16/18 Juan Douglas MD [id number]
--- OUTSIDE RECORDS SUMMARY | 2019-01-05 19:37 | XMS REPORT | Summary of Care ---
:1965 Author Organization [facility] Neuro[facility] Address [address] [place] [address] [address] [place] [address]- Encounter HQ Encntr_alies(FIN) [id number] Date(s): 11/30/18 - 12/01/18 [facility] [address] [place] [address] [place] [phone] Vital Signs No data available for this section Problem List Condition Effective Dates Status Health [...] Subarachnoid Active hemorrhage(Confirmed) Stroke(Confirmed) Active 1Clipped in 65052Sowussey Aspirate - 06/17/201766155Vqqknudp Aspirate - [id number] - 05/06/201735122Tlbtriz added by Discern Expert.6Trach aspirate (CRE), 59038Vvugnwdo Aspirate - 06/17/201787411Inppnbja Aspirate - 05/22/201789298Hxufflw added by Discern Expert. Allergies, Adverse Reactions, Alerts Substance Reaction Severity Status promethazine Active Phenergan Phenergan Active Medications No data available for this section [...] tissue of thorax2 Tracheostomy Completed 1Several spinal [id number] seperate procedures. the last one was more [...]
--- OUTSIDE RECORDS SUMMARY | 2019-01-05 19:37 | XMS REPORT | Summary of Care ---
:1965 Author Organization [facility] Address [address] [place] [phone]- Encounter HQ Encntr_alias(FIN) [id number] Date(s): 07/29/17 - 08/02/17 [facility] [address] [place] [address] Professional Services provided by [facility] [place] [address]- Discharge Disposition: Home or Self Care Attending Physician: Keagan Arreguin MD Admitting Physician: Keagan Arreguin MD Vital Signs Most recent to oldest 1 2 3 [Reference Range]: Height 157.48 cm 152.4 cm (07/30/17 3:28 AM) (07/29/17 7:30 PM) Temperature Oral 97.9 DegF 97.7 DegF 97.8 DegF [96.4-99.1 DegF] (08/02/17 7:23 AM) (08/02/17 4:00 AM) (08/01/17 11:55 PM) Blood Pressure 116/73 mmHg 110/69 mmHg 117/65 mmHg [90-140/60-90 mmHg] (08/02/17 7:23 AM) (08/02/17 4:00 AM) (08/02/17 2:45 AM) Respiratory Rate [14-20 18 BRMIN 18 BRMIN 17 BRMIN BRMIN] (08/02/17 7:23 AM) (08/01/17 11:55 PM) (08/01/17 8:00 PM) Peripheral Pulse Rate 87 bpm 90 bpm 85 bpm [60-100 bpm] (08/02/17 7:23 AM) (08/02/17 4:00 AM) (08/02/17 2:45 AM) Weight 54.545 kg 50 kg (07/30/17 3:28 AM) (07/29/17 7:30 PM) Body Mass Index 21.99 m2 21.53 m2 (07/30/17 3:28 AM) (07/29/17 7:30 PM) Problem List Condition Effective Dates Status [...] Subarachnoid Active hemorrhage(Confirmed) Stroke(Confirmed) Active 1Clipped in [address]Twnnwtrd Aspirate - 06/17/201733140Drgmkeqb Aspirate - [id number] - 05/06/201733028Mgqhaax added by Discern Expert.6Tracheal Aspirate - 55225Swbkzawc Aspirate - 05/22/201704540Lmxmzee added by Discern Expert. Allergies, Adverse Reactions, Alerts Substance Reaction Severity Status promethazine Active Phenergan Phenergan Active Medications acetylcysteine 20% inhalation solution 400 mg, 2 mL, Route: NEB, Drug Form: SOLN, Dosing Weight 54.545, kg, RTID, Start date: 07/30/17 20:00:00 LICENSED GUIDE, Stop date: 08/29/17 14:00:00 LICENSED GUIDE Start Date: 07/30/17 Stop Date: 08/02/17 Status: Discontinuedalbuterol-ipratropium 2.5-0.5 mg inhalation solution 3 mL, Route: NEB, Drug Form: SOLN, Dosing Weight 54.545, kg, RTID, Start date: 07/30/17 20:00:00 LICENSED GUIDE, Duration: 30 day, Stop date: 08/29/17 14:00:00 LICENSED GUIDE Notes: (Same as: Duoneb) Start Date: 07/30/17 Stop Date: 08/02/17 Status: Discontinuedamantadine 100 mg, 10 mL, Route: PEG, Drug form: SYRP, BID-04-17, Dosing Weight 54.545, kg , Start date: 07/31/17 8:00:00 LICENSED GUIDE, Duration: 30 day, Stop date: 08/29/17 13:00: 00 LICENSED GUIDE Notes: (Same as: Symmetrel) Start Date: 07/31/17 Stop Date: 08/02/17 Status: Discontinuedatorvastatin 40 mg, 1 tab, Route: PO, Drug form: TAB, Bedtime, Dosing Weight 54.545, kg, Start date: 07/30/17 21:00:00 LICENSED GUIDE, Duration: 30 day, Stop date: 08/28/17 21:00: 00 LICENSED GUIDE Notes: (Same as: Lipitor) Start Date: 07/30/17 Stop Date: 08/02/17 Status: Discontinuedbisacodyl 10 mg, 1 supp, Route: CT, Drug form: SUPP, Daily, Dosing Weight 50, kg, PRN Constipation, Start date: 07/30/17 1:42:00 LICENSED GUIDE, Duration: 30 day, Stop date: 1:41:00 LICENSED GUIDE Notes: (Same As: Dulcolax, Bisco-Lax) Start Date: 07/30/17 Stop Date: 08/02/17 Status: DiscontinuedceFAZolin (SCIP) + sterile water 20 mL 2 gm, Route: IV, Q8Hnow, Dosing Weight 50, kg, Start date: 07/30/17 4:00:00 LICENSED GUIDE , Duration: 24 hr, Stop date: 07/30/17 20:00:00 LICENSED GUIDE, ABX Indication: Surgical Prophylaxis Notes: (Same As: Ancef, Kefzol) MEDICATION WASTE Product Size: 1000 mgProduct Wasted: ___ mg Start Date: 07/30/17 Stop Date: 07/30/17 Status: Discontinuedcholecalciferol 2,000 IntlUnit, 2 tab, Route: PEG, Drug form: TAB, Daily, Dosing Weight 54.545, kg, Start date: 07/31/17 9:00:00 LICENSED GUIDE, Stop date: 08/29/17 9:00:00 LICENSED GUIDE Start Date: 07/31/17 Stop Date: 08/02/17 Status: Discontinueddocusate 50 mg, 1 cap, Route: PO, Drug form: CAP, BID, Dosing Weight 50, kg, Start date: 07/30/17 9:00:00 LICENSED GUIDE, Duration: 30 day, Stop date: 08/28/17 17:00:00 LICENSED GUIDE, Pediatric Dosing Start Date: 07/30/17 Stop Date: 08/02/17 Status: Discontinuedeszopiclone 1 mg, Route: PO, Drug form: TAB, Bedtime, Dosing Weight 54.545, kg, PRN Insomnia , Start date: 07/30/17 15:07:00 LICENSED GUIDE, Duration: 30 day, Stop date: 08/29/17 15:06 :00 LICENSED GUIDE Start Date: 07/30/17 Stop Date: 07/30/17 Status: DeletedFLUoxetine 20 mg, 1 cap, Route: PEG, Drug form: CAP, Daily, Dosing Weight 54.545, kg, Start date: 07/31/17 9:00:00 LICENSED GUIDE, Duration: 30 day, Stop date: 08/29/17 9:00:00 LICENSED GUIDE Notes: (Same as: Maximilian Johnson) Start Date: 07/31/17 Stop Date: 07/31/17 Status: Voided With ResultsFLUoxetine 20 mg, 1 cap, Route: PO, Drug form: CAP, Daily, Dosing Weight 50, kg, Start date : 07/30/17 9:00:00 LICENSED GUIDE, Stop date: 08/28/17 9:00:00 LICENSED GUIDE Notes: (Same as: Maximilian Johnson) Start Date: 07/30/17 Stop Date: 08/01/17 Status: DiscontinuedguaiFENesin 100 mg/5 mL oral liquid 400 mg, 20 mL, Route: PEG, Drug form: LIQ, TID, Dosing Weight 54.545, kg, Start date: 07/30/17 17:00:00 LICENSED GUIDE, Duration: 30 day, Stop date: 08/29/17 13:00:00 LICENSED GUIDE Notes: (Same as: Robitussin) Start Date: 07/30/17 Stop Date: 08/02/17 Status: Discontinuedheparin 5,000 unit, 1 mL, Route: SUB-Q, Drug form: INJ, Q8H, Start date: 08/01/17 16:00: 00 LICENSED GUIDE, Duration: 30day, Stop date: 08/31/17 8:00:00 LICENSED GUIDE Notes: porcine heparin Start Date: 08/01/17 Stop Date: 08/02/17 Status: DiscontinuedhydrALAZINE 20 mg, 1 mL, Route: IVP, Drug form: INJ, Q4H, Dosing Weight 50, kg, PRN Hypertension, Start date: 07/30/17 1:42:00 LICENSED GUIDE, Duration: 30 day, Stop date: 1:41:00 LICENSED GUIDE Notes: (Same as: Apresoline)Push over 5 minutes Start Date: 07/30/17 Stop Date: 08/02/17 Status: Discontinuedinfluenza virus vaccine, inactivated 0.5 mL, Route: IM, Drug Form: SUSP, Daily, Start date: 07/30/17 9:00:00 LICENSED GUIDE, Duration: 1 doses or times, Stop date: 07/30/17 9:00:00 LICENSED GUIDE Notes: (Same as: Fluzone Quadrivalent, Fluarix Quadrivalent)For 3 years of age and older (0.5 mL IM)Shake well before use Start Date: 07/30/17 Stop Date: 07/30/17 Status: Completedlabetalol 10 mg, 2 mL, Route: IVP, Drug form: INJ, Q15Min, Dosing Weight 50, kg, PRN Hypertension, Start date:07/30/17 1:42:00 LICENSED GUIDE, Duration: 3 doses or times, Stop date: Limited # of times Start Date: 07/30/17 Stop Date: 08/02/17 Status: DiscontinuedlevETIRAcetam 100 mg/mL oral solution 750 mg, 7.5 mL, Route: PEG, Drug form: SOLN, C26B-89, Dosing Weight 50, kg, Start date: 07/30/17 6:00:00 LICENSED GUIDE, Duration: 30 day, Stop date: 08/28/17 18:00: 00 LICENSED GUIDE Notes: Same as: Keppra Start Date: 07/30/17 Stop Date: 08/02/17 Status: Discontinuedlevothyroxine 88 microgram, 1 tab, Route: PO, Drug form: TAB, Q630AM, Dosing Weight 50, kg, Start date: 07/30/17 6:30:00 LICENSED GUIDE, Duration: 30 day, Stop date: 08/28/17 6:30:00 LICENSED GUIDE Notes: Take 1 hour before or 2 hours after meal; Enteral feeds may interefere with the absorption ofthis medication. (Same as:Synthroid) Start Date: 07/30/17 Stop Date: 08/02/17 Status: Discontinuedmelatonin 3 mg oral tablet 3 mg, 1 tab, Route: PO, Drug Form: TAB, Dosing Weight 54.545, kg, Bedtime, Start date: 07/31/17 23:55:00 LICENSED GUIDE, Duration: 30 day, Stop date: 08/30/17 21:00: 00 LICENSED GUIDE Notes: (Same as: Melatonin) Start Date: 07/31/17 Stop Date: 08/02/17 Status: Discontinuedmetoprolol tartrate 12.5 mg, 0.5 tab, Route: PO, Drug form: TAB, BID, Dosing Weight 54.545, kg, Start date: 07/30/17 17:00:00 LICENSED GUIDE, Duration: 30 day, Stop date: 08/29/17 9:00: 00 LICENSED GUIDE Notes: (Same as: Lopressor) 12.5 mg=1/2 X 25 mg TAB Start Date: 07/30/17 Stop Date: 08/02/17 Status: DiscontinuedNorco 10/325 oral tablet 1 tab, Route: PO, Drug Form: TAB, Dosing Weight 50, kg, Q4H, PRN Pain Score 1-3 , Start date: 07/30/17 1:42:00 LICENSED GUIDE, Duration: 30 day, Stop date: 08/29/17 1:41: 00 LICENSED GUIDE Notes: Do not exceed 4gm/day of acetaminophen. (Same as: [place] 325/10) Start Date: 07/30/17 Stop Date: 08/02/17 Status: Discontinuednormal saline 0.9% IV 1,000 mL 1,000 mL, Rate: 1,000 ml/hr, Infuse over: 1 hr, Route: IV, Dosing Weight 50 kg, Total Volume: 1,000,Start date: 07/29/17 21:12:00 LICENSED GUIDE, Duration: 1 doses or times, Stop date: 07/29/17 22:11:00 LICENSED GUIDE, 1.47, m2 Start Date: 07/29/17 Stop Date: 07/29/17 Status: Completedocular lubricant 1 drp, Route: BOTH EYES, QID, Drug form: SOLN, PRN Dry Eyes, Start date: 9:53:00 LICENSED GUIDE, Duration: 30 day, Stop date: 08/29/17 9:52:00 LICENSED GUIDE Notes: (Same as: Aquasite) Start Date: 07/30/17 Stop Date: 08/02/17 Status: Discontinuedondansetron 4 mg, 2 mL, Route: IVP, Drug form: INJ, Q6H, Dosing Weight 50, kg, PRN Nausea & amp; Vomiting, Start date: 07/30/17 1:42:00 LICENSED GUIDE, Duration: 30 day, Stop date: 1:41:00 LICENSED GUIDE, >/=4 years, Pediatric Dosing Notes: (Same as: Zofran) MEDICATION WASTE Product Size: 4 mgProduct Wasted: ___ mg Start Date: 07/30/17 Stop Date: 08/02/17 Status: Discontinuedophthalmic irrigation, extraocular 1 appl, Route: Each Affected Eye, PRN, PRN Irritation, Start date: 07/30/17 9:32 :00 LICENSED GUIDE, Duration: 30 day, Stop date: 08/29/17 9:31:00 LICENSED GUIDE Start Date: 07/30/17 Stop Date: 07/30/17 Status: DeletedPROzac 20 mg, 1 cap, Route: PO, Drug form: CAP, Daily, Dosing Weight 50, kg, Start date : 08/01/17 21:00:00 LICENSED GUIDE, Duration: 30 day, Stop date: 08/31/17 9:00:00 LICENSED GUIDE Notes: (Same as: Prozac, Sarafem) Start Date: 08/01/17 Stop Date: 08/02/17 Status: DiscontinuedSaline Flush 0.9% 10 ml, Route: IVP, Drug Form: INJ, Dosing Weight 50, kg, Q12H, Start date: 07/30 9:00:00 LICENSED GUIDE, Duration: 30 day, Stop date: 08/28/17 21:00:00 LICENSED GUIDE Notes: (Same as: BD Posiflush) Start Date: 07/30/17 Stop Date: 08/02/17 Status: DiscontinuedSaline Flush 0.9% 10 ml, Route: IVP, Drug Form: INJ, Dosing Weight 50, kg, PRN, PRN Line Flush, Start date: 07/30/17 1:42:00 LICENSED GUIDE, Duration: 30 day, Stop date: 08/29/17 1:41:00 LICENSED GUIDE Notes: (Same as: BD Posiflush) Start Date: 07/30/17 Stop Date: 08/02/17 Status: Discontinuedsenna 8.6 mg, 1 tab, Route: PO, Drug Form: TAB, Dosing Weight 50, kg, BID, Start date : 07/30/17 9:00:00 LICENSED GUIDE, Duration: 30 day, Stop date: 08/28/17 17:00:00 LICENSED GUIDE Notes: (Same as: Curt) Start Date: 07/30/17 Stop Date: 08/02/17 Status: DiscontinuedVitamin D3 2,000 IntlUnit, 2 tab, Route: PO, Drug form: TAB, ONCE, Start date: 07/31/17 9: 25:00 LICENSED GUIDE, Stop date:07/31/17 9:25:00 LICENSED GUIDE Start Date: 07/31/17 Stop Date: 07/31/17 Status: Completedzolpidem 5 mg, 1 tab, Route: PO, Drug form: TAB, Bedtime, PRN Sleep, Start date: 15:23:00 LICENSED GUIDE, Duration: 30 day, Stop date: 08/29/17 15:22:00 LICENSED GUIDE Notes: (Same As: Amie) Start Date: 07/30/17 Stop Date: 08/02/17 Status: Discontinued Results BLOOD BANK RESULTS Most recent to oldest [Reference Range]: 1 2 ABO/Rh O POS *Unknown* (07/30/17 12:45 AM) Antibody Scrn Negative (07/30/17 12:45 AM) ELECTROLYTES Most recent to oldest [Reference Range]: 1 2 Sodium Lvl [135-145 mEq/L] 137 mEq/L (07/29/17 8:28 PM) Potassium Lvl [3.5-5.1 mEq/L] 4.3 mEq/L (07/29/17 8:28 PM) Chloride Lvl [95-109 mEq/L] 101 mEq/L (07/29/17 8:28 PM) CO2 [24-32 mEq/L] 28 mEq/L (07/29/17 8:28 PM) AGAP [10.0-20.0 mEq/L] 12.3 mEq/L (07/29/17 8:28 PM) CHEM PANEL Most recent to oldest [Reference Range]: 1 2 Creatinine Lvl [0.50-1.40 mg/dL] 0.66 mg/dL (07/29/17 8:28 PM) eGFR 101 mL/min/1.73m2 1 *NA* (07/29/17 8: PM) BUN [7-22 mg/dL] 25 mg/dL *HI* (07/29/17 8:28 PM) Glucose Lvl [70-99 mg/dL] 95 mg/dL (07/29/17 8:28 PM) Total Protein [6.4-8.4 g/dL] 8.1 g/dL (07/29/17 8:28 PM) Albumin Lvl [3.5-5.0 g/dL] 3.1 g/dL *LOW* (07/29/17 8:28 PM) Globulin [2.7-4.2 g/dL] 5.0 g/dL *HI* (07/29/17 8:28 PM) A/G Ratio [0.7-1.6] 0.6 *LOW* (07/29/17 8: PM) Calcium Lvl [8.5-10.5 mg/dL] 9.6 mg/dL (07/29/17 8:28 PM) Phosphorus [2.5-4.5 mg/dL] 4.1 mg/dL (07/29/17 8:28 PM) Magnesium Lvl [1.8-2.4 mg/dL] 2.0 mg/dL (07/29/17 8:28 PM) ALT [0-65 unit/L] 38 unit/L (07/29/17 8:28 PM) AST [0-37 unit/L] 21 unit/L (07/29/17 8:28 PM) Alk Phos [39-136 unit/L] 149 unit/L *HI* (07/29/17 8:28 PM) Bili Total [0.2-1.3 mg/dL] 0.4 mg/dL (07/29/17 8:28 PM) Bili Direct [0.0-0.3 mg/dL] 0.1 mg/dL (07/29/17 8:28 PM) Bili Indirect [0.0-1.0 mg/dL] 0.3 mg/dL (07/29/17 8:28 PM) Lactic Acid Lvl [0.5-2.2 mMol/L] 1.9 mMol/L (07/29/17 8:28 PM) 1Result Comment: The eGFR is calculated [...] recent to oldest [Reference Range]: 1 2 Troponin-I [0.00-0.40 ng/mL] <0.02 ng/mL (07/29/17 8:28 PM) URINE AND STOOL Most recent to oldest [Reference Range]: 1 2 UA Turbidity [Clear] Slight Cloudy (07/29/17 11:08 PM) UA Color [Yellow] Yellow *NA* (07/29/17 11:08 PM) UA pH [5.0-8.0] 6.5 (07/29/17 11:08 PM) UA Spec Grav [<=1.030] 1.009 (07/29/17 11:08 PM) UA Glucose [Negative] Negative (07/29/17 11:08 PM) UA Blood [Negative] Moderate *ABN* (07/29/17 11:08 PM) UA Ketones [Negative] Negative *NA* (07/29/17 11:08 PM) UA Protein [Negative] Negative (07/29/17 11:08 PM) UA Urobilinogen [0.1-1.0 EU/dL] 0.2 EU/dL (07/29/17 11:08 PM) UA Bili [Negative] Negative *NA* (07/29/17 11:08 PM) UA Leuk Est [Negative] Negative (07/29/17 11:08 PM) UA Nitrite [Negative] Negative (07/29/17 11:08 PM) UA WBC [None Seen /HPF] 3-5 /HPF (07/29/17 11:08 PM) UA RBC [0-2 /HPF] 6-10 /HPF *ABN* (07/29/17 11:08 PM) UA Bacteria [None Seen /HPF] Few /HPF (07/29/17 11:08 PM) UA Sq Epi [Few /LPF] Rare /LPF (07/29/17 11:08 PM) BODY FLUIDS Most recent to oldest [Reference Range]: 1 2 Glucose CSF [45-80 mg/dL] 64 mg/dL (07/29/17 11:40 PM) Protein CSF [15-45 mg/dL] 14 mg/dL *LOW* (07/29/17 11:40 PM) Tube Num CSF 4 1 *NA* *NA* (07/29/17 11:40 PM) (07/29/17 11:40 PM) Color CSF [Colorless] Colorless Colorless (07/29/17 11:40 PM) (07/29/17 11:40 PM) Clarity CSF [Clear] Clear Clear (07/29/17 11:40 PM) (07/29/17 11:40 PM) Supernat CSF [Colorless] Colorless Colorless (07/29/17 11:40 PM) (07/29/17 11:40 PM) RBC CSF [0-0 /mm3] 1 /mm3 1 /mm3 *HI* *HI* (07/29/17 11:40 PM) (07/29/17 11:40 PM) WBC CSF [0-5 /mm3] 1 /mm3 2 /mm3 (07/29/17 11:40 PM) (07/29/17 11:40 PM) HEMATOLOGY Most recent to oldest [Reference Range]: 1 2 WBC [3.7-10.4 K/CMM] 9.2 K/CMM (07/29/17 8:28 PM) RBC [4.20-5.40 M/CMM] 4.09 M/CMM *LOW* (07/29/17 8:28 PM) Hgb [12.0-16.0 g/dL] 12.7 g/dL (07/29/17 8:28 PM) Hct [36.0-48.0 %] 38.5 % (07/29/17 8:28 PM) MCV [80.0-98.0 fL] 94.1 fL (07/29/17 8:28 PM) MCH [27.0-31.0 pg] 30.9 pg (07/29/17 8:28 PM) MCHC [32.0-36.0 g/dL] 32.9 g/dL (07/29/17 8:28 PM) RDW [11.5-14.5 %] 13.9 % (07/29/17 8:28 PM) Platelet [133-450 K/CMM] 294 K/CMM (07/29/17 8:28 PM) MPV [7.4-10.4 fL] 9.4 fL (07/29/17 8:28 PM) Segs [45.0-75.0 %] 55.4 % (07/29/17 8:28 PM) Lymphocytes [20.0-40.0 %] 32.9 % (07/29/17 8:28 PM) Monocytes [2.0-12.0 %] 7.4 % (07/29/17 8:28 PM) Eosinophils [0.0-4.0 %] 3.7 % (07/29/17 8:28 PM) Basophils [0.0-1.0 %] 0.6 % (07/29/17 8:28 PM) Segs-Bands # [1.5-8.1 K/CMM] 5.1 K/CMM (07/29/17 8:28 PM) Lymphocytes # [1.0-5.5 K/CMM] 3.0 K/CMM (07/29/17 8:28 PM) Monocytes # [0.0-0.8 K/CMM] 0.7 K/CMM (07/29/17 8:28 PM) Eosinophils # [0.0-0.5 K/CMM] 0.3 K/CMM (07/29/17 8:28 PM) Basophils # [0.0-0.2 K/CMM] 0.1 K/CMM (07/29/17 8:28 PM) PT [12.0-14.7 seconds] 12.7 seconds (07/30/17 12:50 AM) INR [0.85-1.17] 0.95 (07/30/17 12:50 AM) PTT [22.9-35.8 seconds] 31.5 seconds (07/30/17 12:50 AM) Immunizations Given and Recorded Vaccine Date Status Refusal Reason influenza virus vaccine, inactivated 07/30/17 Given tuberculin [...]
--- OUTSIDE RECORDS SUMMARY | 2019-01-05 19:38 | XMS REPORT | Summary of Care ---
:1965 Author Organization [facility] [place] [facility] Address [address], [address] [place] [address]- Encounter HQ Elijah_johanna(FIN) [id number] Date(s): 08/04/17 - 08/05/17 [facility] [address], [address] [place] [phone] Vital Signs No data available for this [...] Subarachnoid Active hemorrhage(Confirmed) Stroke(Confirmed) Active 1Clipped in 67645Vedjcplw Aspirate - 06/17/201776980Zzxlqois Aspirate - [id number] - 05/06/201748910Gvxcfdo added by Discern Expert.6Tracheal Aspirate - 61475Cnazwipg Aspirate - 05/22/201797028Bbabjiv added by Discern Expert. Allergies, Adverse Reactions, [...]
--- OUTSIDE RECORDS SUMMARY | 2019-01-05 19:38 | XMS REPORT | Summary of Care ---
:1965 Author Organization [facility] Neurosurgery [facility] Address [address], [address] [place] [address]- Encounter HQ Elijah_johanna(FIN) [id number] Date(s): 09/06/17 - 09/06/17 [facility] [address], [address] [place] [address] [phone] Discharge Disposition: Home or Self Care Attending Physician: Keagan Arreguin MD Vital Signs Most recent to oldest [Reference Range]: 1 Height 157.48 cm (09/06/17 11:50 AM) Temperature Oral [96.4-99.1 DegF] 97 DegF (09/06/17 11:50 AM) Blood Pressure [90-140/60-90 mmHg] 115/69 mmHg (09/06/17 11:50 AM) Peripheral Pulse Rate [60-100 bpm] 83 bpm (09/06/17 11:50 AM) Weight 51.364 kg (09/06/17 11:50 AM) Body Mass Index 20.71 m2 (09/06/17 11:50 AM) Problem List Condition Effective Dates Status Health Status Informant Acute respiratory failure(Confirmed) Active Anemia(Confirmed) Active Aneurysm(Confirmed)1 Resolved ICH (intracerebral Active hemorrhage)(Confirmed) Chronic anemia(Confirmed) Active Chronic back pain(Confirmed) Resolved 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, cortical(Confirmed) Diarrhea(Confirmed) Active Dysphagia(Confirmed) Active Fever(Confirmed) Active History of subarachnoid Resolved hemorrhage(Confirmed) H/O tracheostomy(Confirmed) Active Hemiparesis affecting right side as Active late effect of stroke(Confirmed) Subarachnoid hemorrhage(Confirmed) Resolved HTN - Hypertension(Confirmed) Resolved Hydrocephalus(Confirmed) Resolved Hydrocephalus(Confirmed) Active Hypercapnia(Confirmed) Active Hypothyroidism(Confirmed) Active Hypoxia(Confirmed) Active Cerebral aneurysm(Confirmed) Resolved Meningoencephalitis(Confirmed) Active Metabolic encephalopathy(Confirmed) Active MRSA(Confirmed)2, 3, 4, 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 PEG - Percutaneous endoscopic Active gastrostomy catheter(Confirmed) Pneumocephalus(Confirmed) Active Pneumonia(Confirmed) Active MDR Pseudomonas(Confirmed)6, 7, 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 Allergies, Adverse Reactions, Alerts Substance Reaction Severity Status promethazine Active Phenergan Phenergan Active Medications No Known Medications Results No data available for this section [...]
--- OUTSIDE RECORDS SUMMARY | 2019-01-05 19:38 | XMS REPORT | Summary of Care ---
:1965 Author Organization [facility] Address [address] [place], [place] [address] Encounter HQ Juanr_johanna(FIN) [id number] Date(s): 07/07/17 - 08/05/[address] [place] Discharge Disposition: Home or Self Care Attending Physician: Juan Douglas MD Referring Physician: Juan Douglas MD Vital Signs Most recent to oldest 1 2 3 [Reference Range]: Blood Pressure [90-140/60-90 110/61 mmHg 112/60 mmHg 106/58 mmHg mmHg] (08/05/17 2:10 PM) (08/05/17 1:10 PM) (07/07/17 3:03 PM) Peripheral Pulse Rate [60-100 89 bpm 89 bpm 92 bpm bpm] (08/05/17 2:10 PM) (08/05/17 1:10 PM) (07/07/17 3:03 PM) Problem List Condition Effective Dates Status [...] Subarachnoid Active hemorrhage(Confirmed) Stroke(Confirmed) Active 1Clipped in 15978Nzfzirrn Aspirate - 06/17/201785698Hvnizmzf Aspirate - [id number] - 05/06/201784224Jynmwyr added by Discern Expert.6Tracheal Aspirate - 50522Sfvihpnl Aspirate - 05/22/201797784Jfhjubp added by Discern Expert. Allergies, Adverse Reactions, [...]
--- OUTSIDE RECORDS SUMMARY | 2019-01-05 19:38 | XMS REPORT | Summary of Care ---
:1965 Author Organization [facility] Address [address] [place] [address] Encounter HQ Juanr_johanna(FIN) [id number] Date(s): 08/08/17 - 09/06/[address] [address] [place] Discharge Disposition: Home or Self Care Attending Physician: Juan Douglas MD Vital Signs Most recent to oldest 1 2 3 [Reference Range]: Blood Pressure [90-140/60-90 124/70 mmHg 139/40 mmHg 109/67 mmHg mmHg] (08/26/17 4:14 PM) (08/26/17 3:28 PM) (08/09/17 3:25 PM) Peripheral Pulse Rate [60-100 92 bpm 93 bpm 95 bpm bpm] (08/26/17 4:14 PM) (08/26/17 3:28 PM) (08/09/17 3:25 PM) Problem List Condition Effective Dates Status [...] Subarachnoid Active hemorrhage(Confirmed) Stroke(Confirmed) Active 1Clipped in 25980Hlzmrdhf Aspirate - 06/17/201797935Mkxmzzey Aspirate - [id number] - 05/06/201757471Dsdbhlh added by Discern Expert.6Tracheal Aspirate - [id number] Aspirate - 05/22/201710128Bxpbmkb added by Discern Expert. Allergies, Adverse Reactions, [...]
--- OUTSIDE RECORDS SUMMARY | 2019-01-05 19:38 | XMS REPORT | Summary of Care ---
:1965 Author Organization [facility] Neurosurgery [facility] Address [address], [address] [place] [address]- Encounter HQ Elijah_johanna(FIN) [id number] Date(s): 08/30/17 - 08/31/17 [facility] [address], [address] [place] [phone] Vital Signs No data available for this [...] hemorrhage(Confirmed) Resolved HTN - Hypertension(Confirmed) Resolved Hydrocephalus(Confirmed) Active Hypercapnia(Confirmed) Active Hypothyroidism(Confirmed) Active Hypoxia(Confirmed) Active Meningoencephalitis(Confirmed) Active Metabolic encephalopathy(Confirmed) Active MRSA(Confirmed)2, 3, 4, 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 PEG - Percutaneous endoscopic Active gastrostomy catheter(Confirmed) Pneumocephalus(Confirmed) Active Pneumonia(Confirmed) Active MDR Pseudomonas(Confirmed)6, 7, 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 Allergies, Adverse Reactions, [...]
--- OUTSIDE RECORDS SUMMARY | 2019-01-05 19:39 | XMS REPORT | Summary of Care ---
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- dominant side (Final) - Urinary tract infection, site not specified (Final) - Essential (primary) hypertension (Final) - Type 2 diabetes mellitus without complications (Final) - Gastro-esophageal reflux disease without esophagitis (Final) - Major depressive disorder, single episode, unspecified (Final) - Hypothyroidism, unspecified (Final) - Presence of cerebrospinal fluid drainage device (Final) - Allergy status to other drugs, medicaments and biological substances status ( Final) - Other vp software support (current) drug therapy (Final) - Discharge Disposition: Home or Self Care Attending Physician: Familia Aguilar MD Admitting Physician: Tammy Sheehan MD Referring Physician: Raul Chacon MD Vital Signs Most recent to oldest 1 2 3 [Reference Range]: Height 162.56 cm 162.56 cm (09/15/17 5:20 AM) (09/15/17 5:19 AM) Temperature Oral [96.4-99.1 96.7 DegF 97.0 DegF 98.6 DegF DegF] (09/16/17 10:10 AM) (09/16/17 4:28 AM) (1/12/18 2:41 AM) Blood Pressure [90-140/60-90 109/64 mmHg 115/69 mmHg 114/65 mmHg mmHg] (09/16/17 10:10 AM) (09/16/17 4:28 AM) (09/16/17 2:41 AM) Respiratory Rate [14-20 BRMIN] 18 BRMIN 20 BRMIN 20 BRMIN (09/16/17 10:10 AM) (09/16/17 4:28 AM) (09/16/17 2:41 AM) Peripheral Pulse Rate [60-100 93 bpm 91 bpm 90 bpm bpm] (09/16/17 10:10 AM) (09/16/17 4:29 AM) (09/16/17 4:28 AM) Weight 54.043 kg 54.043 kg (09/15/17 5:20 AM) (09/15/17 5:19 AM) Body Mass Index 20.45 m2 20.45 m2 (09/15/17 5:20 AM) (09/15/17 5:19 AM) Problem List Condition Effective Dates Status [...] Active MRSA(Confirmed)2, 3, 4, 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 Pneumocephalus(Confirmed) Active Pneumonia(Confirmed) Active MDR Pseudomonas(Confirmed)6, 7, 8 05/22/17 Active Cognitive deficits following Active nontraumatic intracerebral hemorrhage(Confirmed) Respiratory failure(Confirmed) Active SAH - Subarachnoid Active hemorrhage(Confirmed) Stroke(Confirmed) Active 1Clipped in [id number] Aspirate - 06/17/201747796Xeyrlheu Aspirate - [id number] - 05/06/201777261Rnhotjf added by Discern Expert.6Tracheal Aspirate - [id number] Aspirate - 05/22/201783072Dtwmlie added by Discern Expert. Allergies, Adverse Reactions, Alerts Substance Reaction Severity Status promethazine Active Phenergan Phenergan Active Medications albuterol-ipratropium 2.5-0.5 mg inhalation solution 3 mL, NEB, PRN, 0 Refill(s) Start Date: 09/14/17 Stop Date: 10/27/17 Status: Discontinuedamantadine 50 mg/5 mL oral syrup 100 mg=10 ml, PO, BID, # 280 ml, 0 Refill(s) Start Date: 09/14/17 Stop Date: 10/27/17 Status: Discontinuedatorvastatin 40 mg oral tablet 40 mg=1 tab, PO, Bedtime, # 90 tab, 1 Refill(s) Start Date: 09/14/17 Stop Date: 11/15/17 Status: Completedbenzonatate 100 mg oral capsule 100 mg=1 cap, PO, TID, do not crush or chew, # 30 cap, 0 Refill(s) Start Date: 09/14/17 Stop Date: 11/30/17 Status: Discontinueddocusate 100 mg, 1 cap, Route: PO, Drug form: CAP, Daily, Dosing Weight 54.043, kg, Start date: 09/15/17 9:00:00 PURCHASING AGENT, Duration: 30 day, Stop date: 10/14/17 9:00:00 PURCHASING AGENT Notes: (Same as: Colace) (Do Not Crush) Start Date: 09/15/17 Stop Date: 09/16/17 Status: Discontinuedeszopiclone 1 mg oral tablet 1 mg=1 tab, PO, Bedtime, PRN for insomnia, # 0, 0 Refill(s) Start Date: 09/14/17 Stop Date: 10/27/17 Status: DiscontinuedFLUoxetine PO, 0 Refill(s) Start Date: 09/14/17 Stop Date: 09/16/17 Status: DiscontinuedFLUoxetine 20 mg oral tablet 20 mg=1 tab, PO, QAM, # 90 tab, 0 Refill(s) Start Date: 09/14/17 Stop Date: 10/27/17 Status: DiscontinuedguaiFENesin 100 mg, PO, TID, 0 Refill(s) Start Date: 09/14/17 Stop Date: 10/27/17 Status: Discontinuedheparin 5,000 unit, 1 mL, Route: SUB-Q, Drug form: INJ, Q8H, Dosing Weight 54.043, kg, Start date: 09/15/17 16:00:00 PURCHASING AGENT, Duration: 30 day, Stop date: 10/15/17 8:00: 00 PURCHASING AGENT Notes: porcine heparin Start Date: 09/15/17 Stop Date: 09/16/17 Status: DiscontinuedKeppra 750 mg, 3 tab, Route: PO, Drug form: TAB, Q12H, Dosing Weight 54.043, kg, Priority: NOW, Start date:09/15/17 8:52:00 PURCHASING AGENT, Duration: 30 day, Stop date: 05/23 21:00:00 PURCHASING AGENT Notes: (Same as:Keppra) Start Date: 09/15/17 Stop Date: 09/16/17 Status: DiscontinuedlevETIRAcetam 100 mg/mL oral solution 750 mg=7.5 mL, PO, Q12H, 0 Refill(s) Start Date: 09/14/17 Stop Date: 11/15/17 Status: DiscontinuedLevothroid 88 mcg (0.088 mg) oral tablet 88 microgram=1 tab, PO, Q6AM, # 30 tab, 0 Refill(s) Start Date: 09/14/17 Stop Date: 10/27/17 Status: CompletedLORazepam 1 mg, 0.5 mL, Route: IVP, Drug form: INJ, Q15Min, kg, PRN Seizure, Start date: 09/15/17 3:12:00 PURCHASING AGENT,Duration: 30 day, Stop date: 10/15/17 3:11:00 PURCHASING AGENT Notes: (Same as: Ativan) Start Date: 09/15/17 Stop Date: 09/16/17 Status: Discontinuedmelatonin 3 mg, 1 tab, Route: PO, Drug form: TAB, Bedtime, Dosing Weight 54.043, kg, PRN Sleep, Start date: 09/16/17 0:32:00 PURCHASING AGENT, Duration: 30 day, Stop date: 10/16/17 0 :31:00 PURCHASING AGENT Notes: (Same as: Melatonin) Start Date: 09/16/17 Stop Date: 09/16/17 Status: Discontinuedmelatonin 3 mg oral tablet 3 mg=1 tab, PO, PRN, PRN for insomnia, # 60 tab, 0 Refill(s) Start Date: 09/14/17 Stop Date: 10/27/17 Status: Completedmetoprolol tartrate 12.5 mg, PO, Q12H, 0 Refill(s) Start Date: 09/14/17 Stop Date: 10/27/17 Status: DiscontinuedNS (Bolus) IV 500 mL, 500 ml/hr, Infuse Over: 1 hr, Route: IV, 500, Drug form: INJ, ONCE, Priority: STAT, Dosing Weight 54.043 kg, Start date: 09/16/17 0:32:00 PURCHASING AGENT, Stop date: 09/16/17 0:32:00 PURCHASING AGENT Start Date: 09/16/17 Stop Date: 09/16/17 Status: CompletedNS 1,000 mL 1,000 mL, Rate: 75 ml/hr, Infuse over: 13.3 hr, Route: IV, Dosing Weight 54.043 kg, Total Volume: 1,000, Start date: 09/15/17 8:55:00 PURCHASING AGENT, Duration: 30 day, Stop date: 10/15/17 8:54:00 PURCHASING AGENT, 1.57, m2 Start Date: 09/15/17 Stop Date: 09/16/17 Status: DiscontinuedOccupational Therapy See Instructions, MEDARDO DIXON, OT, # 1 appl, 0 Refill(s) Start Date: 09/16/17 Stop Date: 10/27/17 Status: Discontinuedomeprazole 20 mg oral delayed release capsule 20 mg=1 cap, PO, QAM, 0 Refill(s) Start Date: 09/14/17 Stop Date: 10/27/17 Status: CompletedPhysical Therapy See Instructions, MEDARDO DIXON, PT, # 1 appl, 0 Refill(s) Start Date: 09/16/17 Stop Date: 10/27/17 Status: DiscontinuedRocephin + sterile water 10 mL 1 gm, Route: IVPB, [id number], Dosing Weight 54.043, kg, Start date: 09/15/17 9:00: 00 PURCHASING AGENT, Duration: 2 day, Stop date: 09/16/17 9:00:00 PURCHASING AGENT, ABX Indication: Urinary Tract Infection Notes: (Same As: Rocephin). MEDICATION WASTE Product Size: 1000 mgProduct Wasted: _0__ mg Start Date: 09/15/17 Stop Date: 09/16/17 Status: Completedsenna 8.6 mg, 1 tab, Route: PO, Drug Form: TAB, Dosing Weight 54.043, kg, Daily, Start date: 09/15/17 9:00:00 PURCHASING AGENT, Duration: 30 day, Stop date: 10/14/17 9:00:00 PURCHASING AGENT Notes: (Same as: Senmirta) Start Date: 09/15/17 Stop Date: 09/16/17 Status: DiscontinuedSpeech Therapy See Instructions, MISC, ONCALL, ST, # 1 appl, 0 Refill(s) Start Date: 09/16/17 Stop Date: 10/27/17 Status: DiscontinuedVitamin D3 2,000 IntlUnit, PO, QAM, 0 Refill(s) Start Date: 09/14/17 Status: Ordered Results ELECTROLYTES Most recent to oldest [Reference Range]: 1 2 Sodium Lvl [135-145 mEq/L] 146 mEq/L 142 mEq/L *HI* (09/15/17 5:18 AM) (09/16/17 6:17 AM) Potassium Lvl [3.5-5.1 mEq/L] 3.7 mEq/L 4.0 mEq/L (09/16/17 6:17 AM) (09/15/17 5:18 AM) Chloride Lvl [95-109 mEq/L] 109 mEq/L 107 mEq/L (09/16/17 6:17 AM) (09/15/17 5:18 AM) CO2 [24-32 mEq/L] 23 mEq/L 26 mEq/L *LOW* (09/15/17 5:18 AM) (09/16/17 6:17 AM) AGAP [10.0-20.0 mEq/L] 17.7 mEq/L 13.0 mEq/L (09/16/17 6:17 AM) (09/15/17 5:18 AM) CHEM PANEL Most recent to oldest [Reference Range]: 1 2 Creatinine Lvl [0.50-1.40 mg/dL] 0.43 mg/dL 0.57 mg/dL *LOW* (09/15/17 5:18 AM) (09/16/17 6:17 AM) eGFR 116 mL/min/1.73m2 1 106 mL/min/1.73m2 2 *NA* *NA* (09/16/17 6:17 AM) (09/15/17 5:18 AM) BUN [7-22 mg/dL] 20 mg/dL 23 mg/dL (09/16/17 6:17 AM) *HI* (09/15/17 5:18 AM) Glucose Lvl [70-99 mg/dL] 63 mg/dL 85 mg/dL *LOW* (09/15/17 5:18 AM) (09/16/17 6:17 AM) Calcium Lvl [8.5-10.5 mg/dL] 9.6 mg/dL 9.7 mg/dL (09/16/17 6:17 AM) (09/15/17 5:18 AM) Phosphorus [2.5-4.5 mg/dL] 3.7 mg/dL 3.5 mg/dL (09/16/17 6:17 AM) (09/15/17 5:18 AM) Magnesium Lvl [1.8-2.4 mg/dL] 1.9 mg/dL 2.2 mg/dL (09/16/17 6:17 AM) (09/15/17 5:18 AM) 1Result Comment: The eGFR is calculated [...] recent to oldest [Reference Range]: 1 2 Ca Ion WB [1.05-1.25 mMol/L] 1.23 mMol/L (09/16/17 6:17 AM) Ca Norm WB [1.05-1.25 mMol/L] 1.21 mMol/L (09/16/17 6:17 AM) TOXICOLOGY Most recent to oldest [Reference Range]: 1 2 Keppra Lvl [10.0-40.0 ug/ml] 22.5 ug/ml 1 *NA* (09/15/17 5:18 AM) 1Result Comment: Performed At: [facility] [id number] Conrado Duffy MD Ph:[phone] Most recent to oldest 1 2 [Reference Range]: WBC [3.7-10.4 K/CMM] 8.4 K/CMM 7.0 K/CMM (09/16/17 6:17 AM) (09/15/17 5:18 AM) RBC [4.20-5.40 M/CMM] 3.96 M/CMM 4.14 M/CMM *LOW* *LOW* (09/16/17 6:17 AM) (09/15/17 5:18 AM) Hgb [12.0-16.0 g/dL] 12.0 g/dL 12.5 g/dL (09/16/17 6:17 AM) (09/15/17 5:18 AM) Hct [36.0-48.0 %] 36.2 % 38.0 % (09/16/17 6:17 AM) (09/15/17 5:18 AM) MCV [80.0-98.0 fL] 91.6 fL 91.8 fL (09/16/17 6:17 AM) (09/15/17 5:18 AM) MCH [27.0-31.0 pg] 30.2 pg 30.1 pg (09/16/17 6:17 AM) (09/15/17 5:18 AM) MCHC [32.0-36.0 g/dL] 33.0 g/dL 32.8 g/dL (09/16/17 6:17 AM) (09/15/17 5:18 AM) RDW [11.5-14.5 %] 14.7 % 14.8 % *HI* *HI* (09/16/17 6:17 AM) (09/15/17 5:18 AM) MPV [7.4-10.4 fL] 9.2 fL 9.5 fL (09/16/17 6:17 AM) (09/15/17 5:18 AM) Platelet [133-450 K/CMM] 221 K/CMM 232 K/CMM (09/16/17 6:17 AM) (09/15/17 5:18 AM) Segs [45.0-75.0 %] 63.9 % 45.8 % (09/16/17 6:17 AM) (09/15/17:18 AM) Lymphocytes [20.0-40.0 %] 27.3 % 45.5 % (09/16/17 6:17 AM) *HI* (09/15/17 5:18 AM) Monocytes [2.0-12.0 %] 6.2 % 5.2 % (09/16/17 6:17 AM) (09/15/17 5:18 AM) Eosinophils [0.0-4.0 %] 2.0 % 2.7 % (09/16/17 6:17 AM) (09/15/17 5:18 AM) Basophils [0.0-1.0 %] 0.6 % 0.8 % (09/16/17 6:17 AM) (09/15/17 5:18 AM) Segs-Bands # [1.5-8.1 K/CMM] 5.4 K/CMM 3.2 K/CMM (09/16/17 6:17 AM) (09/15/17 5:18 AM) Lymphocytes # [1.0-5.5 K/CMM] 2.3 K/CMM 3.2 K/CMM (09/16/17 6:17 AM) (09/15/17 5:18 AM) Monocytes # [0.0-0.8 K/CMM] 0.5 K/CMM 0.4 K/CMM (09/16/17 6:17 AM) (09/15/17 5:18 AM) Eosinophils # [0.0-0.5 K/CMM] 0.2 K/CMM 0.2 K/CMM (09/16/17 6:17 AM) (09/15/17 5:18 AM) Basophils # [0.0-0.2 K/CMM] 0.1 K/CMM 0.1 K/CMM (09/16/17 6:17 AM) (09/15/17 5:18 AM) PT [12.0-14.7 seconds] 14.4 seconds (09/15/17 7:21 AM) INR [0.85-1.17] 1.12 (09/15/17 7:21 AM) PTT [22.9-35.8 seconds] 33.5 seconds (09/15/17 7:21 AM) R-time [5.0-10.0 minutes] 4.1 minutes *LOW* (09/15/17 7:21 AM) K-time [1.0-3.0 minutes] 0.8 minutes *LOW* (09/15/17 7:21 AM) Angle [53.0-72.0 degrees] 77.6 degrees *HI* (09/15/17 7:21 AM) Max Amp [50.0-70.0 mm] 76.6 mm *HI* (09/15/17 7:21 AM) G-value [4.5-11.0 K d/sc] 16.4 K d/sc *HI* (09/15/17 7:21 AM) Ly30 [0.0-7.5 %] 0.7 % (09/15/17 7:21 AM) Coag Index [-3.0-3.0] 4.5 *HI* (09/15/17 7:21 AM) TEG Interp Thrombelastograph results show shortened value of R and increased values of both Angle Alpha and MA. These findings are suggestive of platelet and enzymatic hypercoagulation which may be seen in early p hase of DIC. Monitor for DIC with DIC panel may be indicated. CPT:32460 *NA* (09/15/17 7:21 AM) TEG Data See Note (09/15/17 7:21 AM) Immunizations Given and Recorded Vaccine Date Status Refusal Reason influenza virus vaccine, inactivated 07/30/17 Given tuberculin purified protein derivative 04/25/16 Given Not Given Vaccine Date Status Refusal Reason pneumococcal 23-valent vaccine 01/22/16 Not Given Parent Or Guardian Refuses Procedures Procedure Date Related Diagnosis Body Site Status Clipping of aneurysm of cerebral artery Completed Craniotomy Completed Laminectomy1 Completed PEG - Percutaneous endoscopic gastrostomy Completed Radical resection of tumor of soft tissue Completed of thorax2 Tracheostomy Completed 1Several spinal [id number] seperate procedures. the last one was more [...] Smoking Last 365 Days Yes; Reg Smoking Cessati on Counseling No; Tobacco use per day: 1; Started at age: 17.0; Stopped at age: 51; entered on: 12/12/17 1denies Exercise Assessment and Plan Extracted from: Title: Clinical Document Author: Patricia Sullivan MD Date: 09/16/17 General Neurology Discharge Summary Date of Admission: 09/15/17 Date of Discharge: 09/16/17 Admit Diagnosis: GIFT WRAPPER malfunction Discharge Diagnosis: seizure secondary to medication non-compliance/UTI Consults Obtained: neurosurgery Brief HPI: This is a 52 Y old with history of prior stroke with residual left hemiparesis , GIFT WRAPPER shunt, depression, dysphagia, GERD, hypothyroidism, traumatic SAH who is presenting with breakthrough seizure. History has been obtained from OSH medical record as family not at bedside and they are not picking up phone. Per OSH record, she had an isolated episode of seizure: described as GTCS around 8 pm. She was taken to OSH for further evaluation. They gave her one loading dose of Keppra 1000 mg. Basic labs were obta ined which showed UA suspicious for UTI and she was given a dose of Ceftriaxone. She got CT Head, which showed ventriculomegaly and given h/o VPS she wsa transferred here for further evaluation of VPS malfunction. Hospital Course: Patient was initially drowsy but arousable and following commands. Patient was admitted for concern of shunt malfunction vs breakthrough seizure due to infection vs metabolic derangement. Stat skull xra y was performed per neurosurgery request. Neurosurgery saw the patient and reviewed imaging, did not see VPS malfunction and signed off. On day of admission, patient was alert and oriented to person and approximate location and time (month) but appeared tired at times and closed her eyes. She was able to name common items without issue. Daughter was contacted, and provided addition information: dong alvarado had not taken her Keppra for the last 4 days, which likely explained her seizure. Additionally, per daughter patient is at times disoriented to location/ date and doesn't know personal information at [facility]. Based on this information, patient was likely close to baseline and daughter was asked to see patient. She was restarted on her home dose of Keppra. On day 2, patient was more alert, reported f eeling better, with similar mental status exam compared to previous day. Patient denied any pain or complaints. At time of discharge, patient had received ceftriaxone x1 at OSH for UA concerning for UTI . She was continued on ceftriaxone and received 3 full doses prior to discharge. Patient was discharged to home with daughter, who is primary caregiver. Discharge Physical Examination: General appearance: alert and oriented to person, approximately to place and situation. Head: Normocephalic, atraumatic. Neuro Mental Status: Alert, following commands without delay. Speech not dysarthric. Cranial Nerves: Pupils are equal, round and reactive to light. Extra ocular movements are intact. Face is mildly asymmetric. Tongue strength is normal. Motor: 4/5 in UE B/L. Normal tone. Full range of motion throughout. Sensory: Grossly intact. Reflexes: +2 biceps, +2 triceps, +2 brachioradialis, +3 patellars, +4 Achilles. Toes up-going bilaterally. Gait: deferred Romberg: deferred Discharge Medications: -Refer to home meds. Follow up: - Follow up with pcp in one week. - Follow up with epilepsy clinic in 2-4 weeks. Call [phone]. Discharge Instructions: - Continue taking medications as prescribed. Greater than 30 min was spent in the discharge planning of this patient. Extracted from: Title: Neurology H&P Author: Deanne Flanagan MD Date: 09/15/17 General Neurology History & Physical Patient: Wilian Cole Chief Complaint: Breakthrough seizure History of Present Illness: This is a 52 Y old with history of prior stroke with residual left hemiparesis , GIFT WRAPPER shunt, depression, dysphagia, GERD, hypothyroidism, traumatic SAH who is presenting with breakthrough seizure. History has been obtained from OSH medical record as family not at bedside and they are not picking up phone. Per OSH record, she had an isolated episode of seizure: described as GTCS around 8 pm. She was taken to OSH for further evaluation. They gave her one loading dose of Keppra 1000 mg. Basic labs were obta ined which showed UA suspicious for UTI and she was given a dose of Ceftriaxone. She got CT Head, which showed ventriculomegaly and given h/o VPS she wsa transferred here for further evaluation of VPS malfunction. Review of Systems: unable to obtain Past Medical History: cerebral infarction, depression, dysphagia, GERD, Left hemiparesis, HLD, HTN, Hypothyroidism, Traumatic SAH Past Surgical History: Brain aneurysm clipped, hysterectomy, spinal surgery Family Medical History: unable to obtain Social History: uanble to obtain Medications: Levothyroxine 88 mcg, Statin 40 mg, Amantadine 10 ml BOD, Metoprolol 25 mg, Fluoxetine 20 mg, Keppra 750 mg BID Allergies: Phenargan Physical Exam: Vitals: Vitals Tmp(F) Tmp(C) Ttype BP MAP Pulse RR SpO2 FIO2 ETCO2 09/15 03:30 96.7 35.94 axil 114/57 80 74 15 97 --- --- 24 Hr Tmax: 96.7F (35.94c) at 09/15 03:30 24 Hr Tmin: 96.7F (35.94c) at 03:30 36 Hr Tmax: 96.7F (35.94c) at 09/15 03:30 36 Hr Tmin: 96.7F (35.94c) at 03:30 Vital Signs are the last 5 in the past 48 hours. Weights are the last 5 in 60 days, plus initial. General appearance:drowsy but arousable Head: Normocephalic, atraumatic. Neuro Mental Status: Drowsy, following commands. Speech is dysarthric . Cranial Nerves: Pupils are equal, round and reactive to light. Extra ocular movements are intact. Face is asymmetric. Tongue strength is normal. Motor:4/5 in UE B/L. Normal tone. Full range of motion throughout. LUE pronator drift Sensory: normal grossly Reflexes: +2 biceps, +2 triceps, +2 brachioradialis, +3 patellars, +4 Achilles. Toes up-going bilaterally. Gait: deferred Romberg: deferred Labs: ordered EKG: pending Imaging: CT Head:done is OSH: showiung bilateral frontal encephalomalacia and slight ventriculomegaly Assessment: This is a 52 Y old with h/o prior stroke, seizure disorder and VPS placement coming with breakthrough seizure. On exmination she is drowsy and uncooperative, but oriented x 3. Is OSH, she wa s suspected to have UTI and was given Ceftriaxone for the same. She could have breakthrough seizures possibly due to infection vs malfunction of her shuntvs metabolic derangement SLATE CUTTER Epilepsy -Admit to [facility] -EEG routine -Start AED, Keppra 750 mg. Might consider increasing the dose tomorrow morning. -Check AED levels -Seizure Precautions -MRI brain seizure protocol - Consulted NSGY to r/o VPS malfunction. RESP stable CV Essential (primary) hypertension -BP control, goal SBP < 150 -Titrate oral agents HEME -Monitor CBC -transfuse for hgb < 7 ENDO -goal HgbA1c < 7 GI/ -Gentle hydration ID UTI - UA suspicious of UTI in OSH (+ Leukocyte esterase) s/p Ceftriaxone x 1 - Repeat UA and Cx Diet: Regular Code Status: Full Code THE FOLLOWING WERE PRESENT ON ADMISSION: Admit Source: Transfer from OSH [facility] C[facility] - Stroke, Left sided hemiparesis, Seizure disorder, VPS, Depression, Brain aneurysm clipped, Traumatic SAH Respiratory - none Cardiovascular Essential HTN Infectious - UTI suspected in OSH, s/p Ceftriaxone x 1 Renal - none Deanne Flanagan MD PGY3, Pediatric Neurology Post-rounds addendum, Patricia Sullivan MD 09/15/17 16:12: Patient has alternate MRN with additional imagin. I saw the patient. Patient was AAOx3, with quiet speech, appearing tired at times, closing her eyes and refusing parts of exam. Patient reported living with 3 kids and is . Patient shook her hea d to deny substance use, deny headache/fever/chills, vision changes, chest pain , shortness of breath, nausea/vomiting, dysuria, fatigue, numbness/tingling. Patient nodded to agree to weakness. She did f ollow directions to raise extremities. Strength was 3/5 in LUE, 4/5 in RUE, 4/ 5 LLE, 5/5 IN RLE. Patient's lower extremities hyperreflexic, left more than right. Patient was able to accurately name pen, glasses, ring without difficulty. She denied pain or headache. Patient stable to be moved to floor. I spoke with patient's daughter, Codie Arevalo ([phone]) on the phone regarding mother's baseline status. Patient lives with daughter. Daughter is her supervisor capacitor processing and also durable and medical power of outplacement consultant. She stated that patient has confusion at baseline due to her multiple surgeries. She knows her own name and and can recognize her relatives but is sometimes confused about her location (as patient's daughter's family was affected by Hurricane [place], patient will sometimes not realize they were l iving in temporary location), usually knows the year but generally does not know the date. Patient does not know her personal history. Her short term memory is poor. Daughter says she will give her food and 5 minutes later, patient will forget that she age. Physically, patient requires assistance and goes to [facility] twice a week. Daughter helps feed patient. Daughter reported that the event that brought patient in was a seizure " shaking all over" lasting 1 minute. Daughter called 911 but patient had stopped when police and ambulance arrived. Daughter said t hat patient had only 1 prior seizure, in 01/2017 after a "leak" of hydrocephalus , which was adjusted. Patient was started on Keppra at that time. Daughter says patient was off Keppra for the past 4 days due to a problem with authorization for the medication with their Dr. Douglas at [facility]. Neurosurgery saw patient and reviewed patient's prior imaging, and has signed off. Daughter requested that MD alert neurosurgery team that patient's neurosurgeon here is Dr. Arreguin. MD informed neurosurgery team. Breakthrough seizure likely due to noncompliance with medication and UTI. Will continue patient's home dose of Keppra, 750mg bid. No EEG or MRI indicated at this time. PT/OT to see patient to evaluate need for rehab. Patient 's daughter will come see patient tomorrow morning. If patient is at baseline, she may be discharged tomorrow. Neurology Attending The patient was seen and examined by me with the resident and I agree with the History/Exam documented. Familia Aguilar MD
--- OUTSIDE RECORDS SUMMARY | 2019-01-05 19:39 | XMS REPORT | Summary of Care ---
:1965 Author Organization [facility] Address [address] [place] [address]- Encounter HQ Encntr_alias(FIN) [id number] Date(s): 10/18/17 - 10/18/[address] Professional Services provided by [facility] [place] [address]- Encounter Diagnosis Urinary tract infection (Discharge Diagnosis) - 10/18/17 Urinary tract infection, site not specified (Final) - 10/24/17 Essential (primary) hypertension (Final) - Personal history of nicotine dependence (Final) - Discharge Disposition: Home or Self Care Attending Physician: Doug Belcher MD Vital Signs Most recent to oldest 1 2 3 [Reference Range]: Height 157.48 cm (10/18/17 1:28 PM) Temperature Oral [96.4-99.1 97.8 DegF 97.9 DegF 97.7 DegF DegF] (10/18/17 11:00 PM) (10/18/17 9:00 PM) (10/18/17 1:28 PM) Blood Pressure [90-140/60-90 129/60 mmHg 122/61 mmHg 126/56 mmHg mmHg] (10/18/17 11:00 PM) (10/18/17 10:00 PM) (10/18/17 9:00 PM) Respiratory Rate [14-20 24 BRMIN 26 BRMIN 24 BRMIN BRMIN] *HI* *HI* *HI* (10/18/17 11:00 PM) (10/18/17 10:00 PM) (10/18/17 9:00 PM) Peripheral Pulse Rate [60-100 78 bpm bpm] (10/18/17 1:28 PM) Weight 49.545 kg (10/18/17 1:28 PM) Body Mass Index 19.98 m2 (10/18/17 1:28 PM) Problem List Condition Effective Dates Status [...] Subarachnoid Active hemorrhage(Confirmed) Stroke(Confirmed) Active 1Clipped in 67201Regbanop Aspirate - 06/17/201753222Flwnvacn Aspirate - [id number] - 05/06/201750265Nuosnbu added by Discern Expert.6Tracheal Aspirate - 59325Wcchkdvg Aspirate - 05/22/201765649Pnkqvlb added by Discern Expert. Allergies, Adverse Reactions, Alerts Substance Reaction Severity Status promethazine Active Phenergan Phenergan Active Medications No data available for this section Results ELECTROLYTES Most recent to oldest [Reference Range]: 1 Sodium Lvl [135-145 mEq/L] 141 mEq/L (10/18/17 7:28 PM) Potassium Lvl [3.5-5.1 mEq/L] 4.0 mEq/L (10/18/17 7:28 PM) Chloride Lvl [95-109 mEq/L] 104 mEq/L (10/18/17 7:28 PM) CO2 [24-32 mEq/L] 28 mEq/L (10/18/17 7:28 PM) AGAP [10.0-20.0 mEq/L] 13.0 mEq/L (10/18/17 7:28 PM) CHEM PANEL Most recent to oldest [Reference Range]: 1 Creatinine Lvl [0.50-1.40 mg/dL] 0.59 mg/dL (10/18/17 7:28 PM) eGFR 105 mL/min/1.73m2 1 *NA* (10/18/17 7:28 PM) BUN [7-22 mg/dL] 22 mg/dL (10/18/17 7:28 PM) Glucose Lvl [70-99 mg/dL] 88 mg/dL (10/18/17 7:28 PM) Calcium Lvl [8.5-10.5 mg/dL] 9.8 mg/dL (10/18/17 7:28 PM) Lactic Acid Lvl [0.5-2.2 mMol/L] 0.7 mMol/L (10/18/17 7:28 PM) 1Result Comment: The eGFR is calculated [...] eGFR should be multiplied by the estimated BMI.URINE AND STOOL Most recent to oldest [Reference Range]: 1 UA Turbidity [Clear] Slight Cloudy (10/18/17 6:48 PM) UA Color [Yellow] Yellow *NA* (10/18/17 6:48 PM) UA pH [5.0-8.0] 6.5 (10/18/17 6:48 PM) UA Spec Grav [<=1.030] 1.020 (10/18/17 6:48 PM) UA Glucose [Negative] Negative (10/18/17 6:48 PM) UA Blood [Negative] Large *ABN* (10/18/17 6:48 PM) UA Ketones [Negative] Negative *NA* (10/18/17 6:48 PM) UA Protein [Negative] Trace *ABN* (10/18/17 6:48 PM) UA Urobilinogen [0.1-1.0 EU/dL] 1.0 EU/dL (10/18/17 6:48 PM) UA Bili [Negative] Negative *NA* (10/18/17 6:48 PM) UA Leuk Est [Negative] Negative (10/18/17 6:48 PM) UA Nitrite [Negative] Negative (10/18/17 6:48 PM) UA WBC [None Seen /HPF] 6-10 /HPF *ABN* (10/18/17 6:48 PM) UA RBC [0-2 /HPF] >100 /HPF *ABN* (10/18/17 6:48 PM) UA Bacteria [None Seen /HPF] Few /HPF (10/18/17 6:48 PM) UA Sq Epi [Few /LPF] Rare /LPF (10/18/17 6:48 PM) UA CaOx Kaylynn [None Seen /HPF] Rare /HPF (10/18/17 6:48 PM) Micro? Performed (10/18/17 6:48 PM) HEMATOLOGY Most recent to oldest [Reference Range]: 1 WBC [3.7-10.4 K/CMM] 6.8 K/CMM (10/18/17 7:28 PM) RBC [4.20-5.40 M/CMM] 3.89 M/CMM *LOW* (10/18/17 7:28 PM) Hgb [12.0-16.0 g/dL] 11.7 g/dL *LOW* (10/18/17 7:28 PM) Hct [36.0-48.0 %] 35.7 % *LOW* (10/18/17 7:28 PM) MCV [80.0-98.0 fL] 91.7 fL (10/18/17 7:28 PM) MCH [27.0-31.0 pg] 30.1 pg (10/18/17 7:28 PM) MCHC [32.0-36.0 g/dL] 32.8 g/dL (10/18/17 7:28 PM) RDW [11.5-14.5 %] 16.0 % *HI* (10/18/17 7:28 PM) MPV [7.4-10.4 fL] 9.0 fL (10/18/17 7:28 PM) Platelet [133-450 K/CMM] 266 K/CMM (10/18/17 7:28 PM) Segs [45.0-75.0 %] 46.0 % (10/18/17 7:28 PM) Lymphocytes [20.0-40.0 %] 42.8 % *HI* (10/18/17 7:28 PM) Monocytes [2.0-12.0 %] 7.4 % (10/18/17 7:28 PM) Eosinophils [0.0-4.0 %] 2.8 % (10/18/17 7:28 PM) Basophils [0.0-1.0 %] 1.0 % (10/18/17 7:28 PM) Segs-Bands # [1.5-8.1 K/CMM] 3.1 K/CMM (10/18/17 7:28 PM) Lymphocytes # [1.0-5.5 K/CMM] 2.9 K/CMM (10/18/17 7:28 PM) Monocytes # [0.0-0.8 K/CMM] 0.5 K/CMM (10/18/17 7:28 PM) Eosinophils # [0.0-0.5 K/CMM] 0.2 K/CMM (10/18/17 7:28 PM) Basophils # [0.0-0.2 K/CMM] 0.1 K/CMM (10/18/17 7:28 PM) Anisocyte [None Seen] 1+ *ABN* (10/18/17 7:28 PM) Plt Morph Normal (10/18/17 7:28 PM) Immunizations Given and Recorded Vaccine Date [...] Completed of thorax2 Tracheostomy Completed 1Several spinal xupqeqvlhi0xjcq seperate procedures. the last one was more than 12 years ago Social History Social History Type Response Substance Abuse Use: None. Sexual Sexually active: No. Exercise 1 Employment/School Status: Employed. 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 Highest education level: High school. Operates hazardous equipment: No. Alcohol Never Smoking Status Former smoker; Type: Cigarettes; Previous treatment: None; Concerns about tobacco use in household: No; Exposure to Tobacco Smoke None; Cigarette Smoking Last 365 Days Yes; Reg Smoking Cessation Counseling No; Tobac co use per day: 1; Started at age: 17.0; Stopped at age: 51; Other Tobacco Frequency quit january 2016; entered on: 01/13/18 1denies Exercise Assessment and Plan No data available for this section
--- OUTSIDE RECORDS SUMMARY | 2019-01-05 19:39 | XMS REPORT | Summary of Care ---
:1965 Author Organization [facility] Neurosurgery [facility] Address [address] [place] [address], [address] [place] [address]- Encounter HQ Juanr_johanna(FIN) [id number] Date(s): 10/18/17 - 10/19/17 [facility] [address] [facility], [address] [place] [phone] Vital Signs No data available for this [...] Subarachnoid Active hemorrhage(Confirmed) Stroke(Confirmed) Active 1Clipped in [address]18[address]Dpkrqhek Aspirate - 06/17/201704317Vnevidms Aspirate - 201642817Qdllls - 05/06/201704248Mhdveuf added by Discern Expert.6Tracheal Aspirate - 06498Sggasddd Aspirate - 05/22/201726018Lgeptzx added by Discern Expert. Allergies, Adverse Reactions, [...] Completed of thorax2 Tracheostomy Completed 1Several spinal hftnvaauwa3zfqi seperate procedures. the last one was more [...]
--- OUTSIDE RECORDS SUMMARY | 2019-01-05 19:39 | XMS REPORT | Summary of Care ---
:1965 Author Organization [facility] Neurosurgery [facility] Address [address] [place] [address], [address] [place] [address]- Encounter HQ Encntr_johanna(FIN) [id number] Date(s): 09/15/17 - 09/16/17 [facility] Neurosurgery [facility] [address] [facility], [address] [place] [phone] Vital Signs No data available for this [...] Subarachnoid Active hemorrhage(Confirmed) Stroke(Confirmed) Active 1Clipped in 27908Wfpvjvfq Aspirate - 06/17/201770089Lfhkopqi Aspirate - 201683326Rnfovg - 05/06/201723966Scsldih added by Discern Expert.6Tracheal Aspirate - 71126Ovifgqax Aspirate - 05/22/201799692Qdhzxks added by Discern Expert. Allergies, Adverse Reactions, [...] Completed of thorax2 Tracheostomy Completed 1Several spinal theobpllqz7ioge seperate procedures. the last one was more [...] on: 12/12/17 1denies Exercise Assessment and Plan No data available for this section
--- OUTSIDE RECORDS SUMMARY | 2019-01-05 19:39 | XMS REPORT | Summary of Care ---
:1965 Author Organization [facility] Address [address] [place] [address] Encounter HQ Elijah_johanna(FIN) [id number] Date(s): 12/23/17 - 12/23/[address] Discharge Disposition: Home or Self Care Attending Physician: Angeles Haque MD Referring Physician: Candelario Meadows MD Vital Signs Most recent to oldest [Reference Range]: 1 Height 157.48 cm (12/23/17 2:30 PM) Blood Pressure [90-140/60-90 mmHg] 97/65 mmHg (12/23/17 2:30 PM) Respiratory Rate [14-20 BRMIN] 18 BRMIN (12/23/17 2:30 PM) Peripheral Pulse Rate [60-100 bpm] 65 bpm (12/23/17 2:30 PM) Weight 49.602 kg (12/23/17 2:30 PM) Body Mass Index 20 m2 (12/23/17 2:30 PM) Problem List Condition Effective Dates Status [...] Subarachnoid Active hemorrhage(Confirmed) Stroke(Confirmed) Active 1Clipped in 31275Oxvyqxyj Aspirate - 06/17/201718406Crjuxmfl Aspirate - 201671941Vvmvay - 05/06/201791084Nopvpfo added by Discern Expert.6Tracheal Aspirate - 92547Gbtfwcwx Aspirate - 05/22/201748839Gcvgxtw added by Discern Expert. Allergies, Adverse Reactions, [...] Completed of thorax2 Tracheostomy Completed 1Several spinal jcmvkowwyb3rsjd seperate procedures. the last one was more [...] 17.0; Stopped at age: 51; entered on: 12/23/17 1denies Exercise Assessment and Plan No data available for this section
--- OUTSIDE RECORDS SUMMARY | 2019-01-05 19:40 | XMS REPORT | Summary of Care ---
:1965 Author Organization [facility] Address [address] [place], [place] [address] Encounter HQ Elijah_johanna(FIN) [id number] Date(s): 10/27/17 - 10/27/[address] Encounter Diagnosis Dorsalgia, unspecified (Final) - 10/30/17 Malignant (primary) neoplasm, unspecified (Final) - Hypothyroidism, unspecified (Final) - Unspecified symptoms and signs involving cognitive functions following cerebral infarction (Final) - Hemiplegia and hemiparesis following cerebral infarction affecting right dominant side (Final) - Discharge Disposition: Home or Self Care Attending Physician: Isa Santamaria MD Referring Physician: Isa Santamaria MD Vital Signs Most recent to oldest [Reference Range]: 1 Height 157.48 cm (10/27/17 3:27 PM) Blood Pressure [90-140/60-90 mmHg] 102/68 mmHg (10/27/17 3:27 PM) Respiratory Rate [14-20 BRMIN] 20 BRMIN (10/27/17 3:27 PM) Peripheral Pulse Rate [60-100 bpm] 91 bpm (10/27/17 3:27 PM) Weight 49.545 kg (10/27/17 3:27 PM) Body Mass Index 19.98 m2 (10/27/17 3:27 PM) Problem List Condition Effective Dates Status [...] Subarachnoid Active hemorrhage(Confirmed) Stroke(Confirmed) Active 1Clipped in 13982Jzlrenkh Aspirate - 06/17/201743077Ehaqxwmr Aspirate - 201612472Vzxycs - 05/06/201778254Xjoxrjt added by Discern Expert.6Tracheal Aspirate - 38207Nfsjxdoh Aspirate - 05/22/201738691Gyqxtsy added by Discern Expert. Allergies, Adverse Reactions, Alerts Substance Reaction Severity Status promethazine Active Phenergan Phenergan Active Medications atorvastatin 40 mg oral tablet 40 mg=1 tab, PO, Bedtime, # 90 tab, 1 Refill(s), Pharmacy: [id number] Start Date: 11/01/17 Stop Date: 04/30/18 Status: OrderedFlovent Diskus 250 mcg inhalation powder 250 microgram, INHALATION, BID, # 60 ea, 3 Refill(s), Pharmacy: [facility] # [id number] Start Date: 10/27/17 Stop Date: 11/15/17 Status: CompletedNizoral Topical 2% shampoo 1 appl, TOP, 2x/Wk, X 8 week, # 120 ml, 1 Refill(s), Pharmacy: [facility] # [id number] Start Date: 11/02/17 Stop Date: 02/22/18 Status: Ordered Results No data available for this section [...] Completed of thorax2 Tracheostomy Completed 1Several spinal gtwyozpaeo5gaip seperate procedures. the last one was more [...] Tobacco Frequency quit january 2016; entered on: 01/25/18 1denies Exercise Assessment and Plan No data available for this section
--- OUTSIDE RECORDS SUMMARY | 2019-01-05 19:40 | XMS REPORT | Summary of Care ---
:1965 Author Organization [facility] Address [address] [place], [place] [address] Encounter HQ Ionntr_johanna(FIN) [id number] Date(s): 01/05/18 - 01/05/[address] [phone] Discharge Disposition: Home or Self Care Attending Physician: Isa Santamaria MD Referring Physician: Isa Santamaria MD Vital Signs Most recent to oldest [Reference Range]: 1 Height 154.94 cm (01/05/18 9:20 AM) Blood Pressure [90-140/60-90 mmHg] 162/83 mmHg *HI* (01/05/18 9:20 AM) Respiratory Rate [14-20 BRMIN] 20 BRMIN (01/05/18 9:20 AM) Peripheral Pulse Rate [60-100 bpm] 67 bpm (01/05/18 9:20 AM) Weight 51.818 kg (01/05/18 9:20 AM) Body Mass Index 21.59 m2 (01/05/18 9:20 AM) Problem List Condition Effective Dates Status [...] Subarachnoid Active hemorrhage(Confirmed) Stroke(Confirmed) Active 1Clipped in 78463Kapfdoly Aspirate - 06/17/201734955Wxmlfjtu Aspirate - 201624707Mqneon - 05/06/201749877Tmslcsd added by Discern Expert.6Tracheal Aspirate - 45279Izhnyfjx Aspirate - 36461Arlkhwl added by Discern Expert. Allergies, Adverse Reactions, Alerts Substance Reaction Severity Status promethazine Active Phenergan Phenergan Active Medications FLUoxetine 20 mg oral capsule 20 mg=1 cap, PEG, Daily, # 90 tab, 3 Refill(s), Pharmacy: [facility] #[id number] Start Date: 01/05/18 Status: Orderedlevothyroxine 88 mcg (0.088 mg) oral tablet 88 microgram=1 tab, PO, Q630AM, # 90 tab, 3 Refill(s), Pharmacy: [facility] # [id number] Start Date: 01/05/18 Status: Orderedmetoprolol tartrate 25 mg oral tablet 12.5 mg=0.5 tab, PEG, Q12H, # 90 tab, 3 Refill(s), Pharmacy: [facility] #[id number] Start Date: 01/05/18 Status: Ordered Results No data available for [...] Completed of thorax2 Tracheostomy Completed 1Several spinal nvgtfjgtih4grnq seperate procedures. the last one was more [...] Tobacco Frequency quit january 2016; entered on: 01/05/18 1denies Exercise Assessment and Plan No data available for this section
--- OUTSIDE RECORDS SUMMARY | 2019-01-05 19:40 | XMS REPORT | Summary of Care ---
:1965 Author Organization [facility] Address [address] [place], [place] [address] Encounter HQ Elijah_johanna(FIN) [id number] Date(s): 09/12/17 - 10/11/[address] [phone] Discharge Disposition: Home or Self Care Attending Physician: Juan Douglas MD Vital Signs No data available for this [...] Subarachnoid Active hemorrhage(Confirmed) Stroke(Confirmed) Active 1Clipped in 59933Gdgneccf Aspirate - 10/13/27676Jmfduoio Aspirate - 201657745Rzgrkg - 05/06/201777973Dlitegm added by Discern Expert.6Tracheal Aspirate - 72521Owgnopkn Aspirate - 05/22/201744493Yesedba added by Discern Expert. Allergies, Adverse Reactions, [...] Completed of thorax2 Tracheostomy Completed 1Several spinal igffhkqqrf5xggg seperate procedures. the last one was more [...]
--- OUTSIDE RECORDS SUMMARY | 2019-01-05 19:40 | XMS REPORT | Summary of Care ---
:1965 Author Organization [facility] Address [address] [place], [place] [address] Encounter HQ Ionntr_johanna(FIN) [id number] Date(s): 01/04/18 - 01/05/[address] Discharge Disposition: Home or Self Care Attending Physician: Angeles Haque MD Referring Physician: Angeles Haque MD Vital Signs No data available for [...] Subarachnoid Active hemorrhage(Confirmed) Stroke(Confirmed) Active 1Clipped in 632[address]Qhlfadjr Aspirate - 06/17/201748165Gkhpcdto Aspirate - 201684623Mnmpui - 05/06/201743738Lptambo added by Discern Expert.6Tracheal Aspirate - 13483Zuvreiog Aspirate - 05/22/201785089Rvcgegj added by Discern Expert. Allergies, Adverse Reactions, [...] Completed of thorax2 Tracheostomy Completed 1Several spinal qluepsvavd1rhjl seperate procedures. the last one was more [...]
--- OUTSIDE RECORDS SUMMARY | 2019-01-05 19:40 | XMS REPORT | Summary of Care ---
:1965 Author Organization [facility] Address [address] [place], [place] [address] Encounter HQ Ionntr_johanna(FIN) [id number] Date(s): 01/25/18 - 01/25/[address] Discharge Disposition: Home or Self Care Attending Physician: Candelario Meadows MD Referring Physician: Candelario Meadows MD Vital Signs Most recent to oldest [Reference Range]: 1 Height 157.48 cm (01/25/18 1:53 PM) Blood Pressure [90-140/60-90 mmHg] 101/67 mmHg (01/25/18 1:53 PM) Respiratory Rate [14-20 BRMIN] 18 BRMIN (01/25/18 1:53 PM) Peripheral Pulse Rate [60-100 bpm] 76 bpm (01/25/18 1:53 PM) Weight 49.545 kg (01/25/18 1:53 PM) Body Mass Index 19.98 m2 (01/25/18 1:53 PM) Problem List Condition Effective Dates Status [...] Subarachnoid Active hemorrhage(Confirmed) Stroke(Confirmed) Active 1Clipped in 71787Uzqtfbjk Aspirate - 06/17/201733529Wdtnsyrj Aspirate - 201654108Sbxote - 05/06/201776740Ykoilbx added by Discern Expert.6Tracheal Aspirate - 15408Pytbjygo Aspirate - 05/22/201788795Jglccjs added by Discern Expert. Allergies, Adverse Reactions, [...] Completed of thorax2 Tracheostomy Completed 1Several spinal xuklnkydfy7ifrv seperate procedures. the last one was more [...]
--- OUTSIDE RECORDS SUMMARY | 2019-01-05 19:40 | XMS REPORT | Summary of Care ---
:[address] [facility] Address [address] [place] [phone] Encounter HQ Elijah_johanna(FIN) [id number] Date(s): 12/30/17 - 01/28/[address] [place] Discharge Disposition: Home or Self Care Attending Physician: Tania Brandt MD Vital Signs No data available for [...] Subarachnoid Active hemorrhage(Confirmed) Stroke(Confirmed) Active 1Clipped in 81855Bovsjsuy Aspirate - 06/17/201714295Wvgavlta Aspirate - 201650149Nmfgff - 95878Bhbxwao added by Discern Expert.6Tracheal Aspirate - 07911Cvdnkjvo Aspirate - 40908Uxtgqvm added by Discern Expert. Allergies, Adverse Reactions, Alerts Substance Reaction Severity Status promethazine Active Phenergan Phenergan Active Medications amantadine 50 mg/5 mL oral syrup 100 mg=10 ml, PO, BID, # 200 ml, 0 Refill(s) Start Date: 12/30/17 Stop Date: 01/05/18 Status: Discontinuedatorvastatin 40 mg oral tablet 40 mg=1 tab, PO, Bedtime, # 30 tab, 0 Refill(s) Start Date: 12/30/17 Stop Date: 01/05/18 Status: Completedbenzonatate 100 mg oral capsule 100 mg=1 cap, PO, TID, do not crush or chew, # 30 cap, 0 Refill(s) Start Date: 12/30/17 Stop Date: 01/05/18 Status: CompletedFLUoxetine 20 mg oral capsule 20 mg=1 cap, PO, Daily, # 30 cap, 0 Refill(s) Start Date: 12/30/17 Stop Date: 01/05/18 Status: CompletedGuaifen DM 10 mg-300 mg/5 mL oral liquid 5 ml, PO, Q4H, # 150 ml, 0 Refill(s) Start Date: 12/30/17 Stop Date: 01/05/18 Status: CompletedlevETIRAcetam 100 mg/mL oral solution 500 mg=5 ml, PO, BID, # 120, 0 Refill(s) Start Date: 12/30/17 Stop Date: 01/05/18 Status: CompletedLunesta 1 mg oral tablet 1 mg=1 tab, PO, Bedtime, PRN for insomnia, # 30 tab, 0 Refill(s) Start Date: 12/30/17 Stop Date: 01/05/18 Status: Completed Results No data available for [...] Completed of thorax2 Tracheostomy Completed 1Several spinal fduxpscuez0qekf seperate procedures. the last one was more [...]
--- OUTSIDE RECORDS SUMMARY | 2019-01-05 19:41 | XMS REPORT | Summary of Care ---
:1965 Author Organization [facility] Address [address] [place], [place] [address] Encounter HQ Williams(FIN) [id number] Date(s): 10/13/17 - 10/13/[address] [phone] Encounter Diagnosis Cough (Final) - Other seizures (Final) - Unspecified symptoms and signs involving cognitive functions following cerebral infarction (Final) - Other abnormalities of gait and mobility (Final) - 10/15/17 Discharge Disposition: Home or Self Care Attending Physician: Tania Brandt MD Referring Physician: Tania Brandt MD Vital Signs Most recent to oldest [Reference Range]: 1 Height 160.02 cm (10/13/17 2:45 PM) Blood Pressure [90-140/60-90 mmHg] 112/73 mmHg (10/13/17 2:45 PM) Respiratory Rate [14-20 BRMIN] 18 BRMIN (10/13/17 2:45 PM) Peripheral Pulse Rate [60-100 bpm] 80 bpm (10/13/17 2:45 PM) Weight 50 kg (10/13/17 2:45 PM) Body Mass Index 19.53 m2 (10/13/17 2:45 PM) Problem List Condition Effective Dates Status [...] Subarachnoid Active hemorrhage(Confirmed) Stroke(Confirmed) Active 1Clipped in 45613Uufkzoys Aspirate - 06/17/201740150Fqerdlyt Aspirate - 201688927Kdqxvn - 05/06/201755959Ynicppc added by Discern Expert.6Tracheal Aspirate - 12685Epmbntpi Aspirate - 05/22/201742770Jdzarof added by Discern Expert. Allergies, Adverse Reactions, Alerts Substance Reaction Severity Status promethazine Active Phenergan Phenergan Active Medications benzonatate 100 mg oral capsule 100 mg=1 cap, PO, TID, do not crush or chew, # 21 cap, 0 Refill(s) Start Date: 10/13/17 Stop Date: 10/27/17 Status: Discontinuedciprofloxacin 500 mg oral tablet 500 mg=1 tab, PO, Q12H, X 7 day, # 14 tab, 0 Refill(s), Pharmacy: [facility]/pharmacy # [id number] Start Date: 10/14/17 Stop Date: 10/21/17 Status: Completedmelatonin 2.5 mg, PO, PRN, 0 Refill(s) Start Date: 10/13/17 Status: Orderedmultivitamin 1 tab, PO, Daily, 0 Refill(s) Start Date: 10/13/17 Status: Orderedomeprazole 20 mg, PO, Daily, 0 Refill(s) Start Date: 10/13/17 Status: Ordered Results URINE AND STOOL Most recent to oldest [Reference Range]: 1 UA Turbidity [Clear] Marked *ABN* (10/13/17 4:29 PM) UA Color [Yellow] Yellow *NA* (10/13/17 4:29 PM) UA pH [5.0-8.0] 7.0 (10/13/17 4:29 PM) UA Spec Grav [<=1.030] 1.017 (10/13/17 4:29 PM) UA Glucose [Negative mg/dL] Negative mg/dL *NA* (10/13/17 4:29 PM) UA Blood [Negative] Small *ABN* (10/13/17 4:29 PM) UA Ketones [Negative mg/dL] Negative mg/dL *NA* (10/13/17 4:29 PM) UA Protein [Negative mg/dL] 200 mg/dL *ABN* (10/13/17 4:29 PM) UA Urobilinogen [0.1-1.0 mg/dL] 2.0 mg/dL *HI* (10/13/17 4:29 PM) UA Bili [Negative] Negative *NA* (10/13/17 4:29 PM) UA Leuk Est [Negative] Large *ABN* (10/13/17 4:29 PM) UA Nitrite [Negative] Negative (10/13/17 4:29 PM) UA WBC [0-5 /HPF] >182 /HPF *HI* (10/13/17 4:29 PM) UA RBC [0-2 /HPF] 168 /HPF *HI* (10/13/17 4:29 PM) UA Bacteria [None Seen /HPF] Many /HPF *ABN* (10/13/17 4:29 PM) UA Sq Epi [Few /LPF] Many /LPF *ABN* (10/13/17 4:29 PM) UA Mucus [None Seen /LPF] Few /LPF *NA* (10/13/17 4:29 PM) UA [place] Yeast [None Seen /HPF] Few /HPF *ABN* (10/13/17 4:29 PM) Immunizations Given and Recorded Vaccine Date [...] Completed of thorax2 Tracheostomy Completed 1Several spinal nahuljndwq3wzqc seperate procedures. the last one was more [...]
--- OUTSIDE RECORDS SUMMARY | 2019-01-05 19:41 | XMS REPORT | Summary of Care ---
:1965 Author Organization [facility] Address [address] [place] [id number]- Encounter HQ Encntr_alias(FIN) [id number] Date(s): 01/13/18 - 01/15/18 [facility] [address] [place] [address] Professional Services provided by [facility] [place] [address]- Discharge Disposition: Home or Self Care Attending Physician: Brandy Perez MD Admitting Physician: Brandy Perez MD Referring Physician: Brandy Perez MD Vital Signs Most recent to oldest 1 2 3 [Reference Range]: Height 157.48 cm 157.48 cm (01/13/18 4:14 PM) (12/30/17 2:57 PM) Temperature Oral [96.4-99.1 98.2 DegF 98.3 DegF 98.1 DegF DegF] (01/15/18 9:17 AM) (01/15/18 4:48 AM) (01/15/18 4:06 AM) Blood Pressure [90-140/60-90 115/74 mmHg 130/62 mmHg 132/60 mmHg mmHg] (01/15/18 9:17 AM) (01/15/18 4:48 AM) (01/15/18 3:00 AM) Respiratory Rate [14-20 BRMIN] 20 BRMIN 22 BRMIN 25 BRMIN (01/15/18 9:17 AM) *HI* *HI* (01/15/18 4:48 AM) (01/15/18 3:00 AM) Peripheral Pulse Rate [60-100 101 bpm 90 bpm 99 bpm bpm] *HI* (01/15/18 4:48 AM) (01/13/18 7:23 PM) (01/15/18 9:17 AM) Weight 52.273 kg 50.455 kg (01/13/18 4:14 PM) (12/30/17 2:57 PM) Body Mass Index 21.08 m2 20.34 m2 (01/13/18 4:14 PM) (12/30/17 2:57 PM) Problem List Condition Effective Dates [...] Subarachnoid Active hemorrhage(Confirmed) Stroke(Confirmed) Active 1Clipped in [id number] Aspirate - 06/17/201786993Tqzzdqrm Aspirate - [id number] - 05/06/201780715Udtmcwv added by Discern Expert.6Tracheal Aspirate - 88687Dkelpnda Aspirate - 05/22/201795936Vjmsrif added by Discern Expert. Allergies, Adverse Reactions, Alerts Substance Reaction Severity Status promethazine Active Phenergan Phenergan Active Medications acetaminophen (ANES) Route: IV, Drug form: INJ, ONCE, Stop date: 01/13/18 10:32:00 CDT Start Date: 01/13/18 Stop Date: 01/13/18 Status: Completedacetaminophen-codeine #3 1 tab, Route: PO, Drug Form: TAB, Dosing Weight 51.818, kg, Q4H, PRN Pain Score 1-3, Start date: 01/13/18 9:59:00 CDT, Duration: 30 day, Stop date: 02/12/18 9: 58:00 CDT Notes: Do not exceed 4gm/day of acetaminophen. (Same as: Tylenol with Codeine # 3) Start Date: 01/13/18 Stop Date: 01/15/18 Status: Discontinuedalbuterol-ipratropium 2.5-0.5 mg inhalation solution 3 mL, Route: NEB, Drug Form: SOLN, Dosing Weight 51.818, kg, RTID, Start date: 01/13/18 13:30:00 CDT, Duration: 30 day, Stop date: 02/12/18 8:00:00 CDT Notes: (Same as: Duoneb) Start Date: 01/13/18 Stop Date: 01/15/18 Status: Discontinuedamantadine 100 mg, 10 mL, Route: PEG, Drug form: SYRP, BID-04-17, Dosing Weight 51.818, kg , Start date: 01/13/18 13:00:00 CDT, Duration: 30 day, Stop date: 02/12/18 8:00: 00 CDT Notes: (Same as: Abdoulayeetrel) Start Date: 01/13/18 Stop Date: 01/15/18 Status: DiscontinuedANES fentaNYL 25 microgram, 0.5 mL, Route: IVP, Drug form: INJ, Q5Min, Dosing Weight 51.818, kg, PRN Pain Score 4-6, Priority: Routine, Start date: 01/13/18 8:56:00 CDT, Duration: 4 doses or times, Stop date: 01/14/18 0:00:00 CDT Notes: (Same as: Sublimaze) Preservative free. Start Date: 01/13/18 Stop Date: 01/13/18 Status: DiscontinuedANES flumazenil 0.2 mg, 2 mL, Route: IVP, Drug form: INJ, PRN, Dosing Weight 51.818, kg, PRN Benzodiazepine Reversal, Initial dose, Start date: 01/13/18 8:56:00 CDT, Duration: 30 day, Stop date: 02/12/18 8:55:00 CDT Notes: (Same as: Romazicon) Start Date: 01/13/18 Stop Date: 01/13/18 Status: DiscontinuedANES hydrALAZINE 10 mg, 0.5 mL, Route: IVP, Drug form: INJ, Q20Min, Dosing Weight 51.818, kg, PRN Elevated BP, Start date: 01/13/18 8:56:00 CDT, Duration: 2 doses or times, Stop date: 01/14/18 0:00:00 CDT Notes: (Same as: Apresoline)Push over 5 minutes Start Date: 01/13/18 Stop Date: 01/13/18 Status: DiscontinuedANES metoprolol 1 mg, 1 mL, Route: IVP, Drug form: INJ, Q5Min, Dosing Weight 51.818, kg, PRN Other -See Comment, Start date: 01/13/18 8:56:00 CDT, Duration: 5 doses or times , Stop date: 01/14/18 0:00:00 CDT Notes: (Same as: Lopressor)Push over 2 minutes Start Date: 01/13/18 Stop Date: 01/13/18 Status: DiscontinuedANES morphine Sulfate 2 mg, 0.5 mL, Route: IVP, Drug form: INJ, Q5Min, Dosing Weight 51.818, kg, PRN Pain Score 7-10, Start date: 01/13/18 8:56:00 CDT, Duration: 3 doses or times, Stop date: 01/14/18 0:00:00 CDT Notes: (Same as:MORPhine Sulfate) Start Date: 01/13/18 Stop Date: 01/13/18 Status: DiscontinuedANES naloxone 0.4 mg, 1 mL, Route: IVP, Drug form: INJ, Q2MIN, Dosing Weight 51.818, kg, PRN Narcotic Reversal, Start date: 01/13/18 8:56:00 CDT, Duration: 8 doses or times , Stop date: 01/14/18 0:00:00 CDT Notes: Same as Narcan Start Date: 01/13/18 Stop Date: 01/13/18 Status: DiscontinuedANES ondansetron 4 mg, 2 mL, Route: IVP, Drug form: INJ, ONCE, Dosing Weight 51.818, kg, PRN Nausea & Vomiting, Start date: 01/13/18 8:56:00 CDT Notes: (Same as: Daniel) MEDICATION WASTE Product Size: 4 mgProduct Wasted: ___ mg Start Date: 01/13/18 Stop Date: 01/13/18 Status: DiscontinuedANES oxyCODONE 5 mg, 1 tab, Route: PO, Drug form: TAB, Q4H, Dosing Weight 51.818, kg, PRN Pain Score 4-6, Start date: 01/13/18 8:56:00 CDT, Duration: 30 day, Stop date: 8:55:00 CDT Notes: (Same as: Roxicodone) Start Date: 01/13/18 Stop Date: 01/13/18 Status: Discontinuedatorvastatin 40 mg, 1 tab, Route: PO, Drug form: TAB, Bedtime, Dosing Weight 51.818, kg, Start date: 01/13/18 21:00:00 CDT, Duration: 30 day, Stop date: 02/11/18 21:00: 00 CDT Notes: (Same as: Lipitor) Start Date: 01/13/18 Stop Date: 01/15/18 Status: Discontinuedbenzonatate 100 mg, 1 cap, Route: PO, Drug form: CAP, TID, Dosing Weight 51.818, kg, Start date: 01/13/18 13:00:00 CDT, Duration: 30 day, Stop date: 02/12/18 9:00:00 CDT Notes: (Same As: Molina Mason)"Do Not Crush" Start Date: 01/13/18 Stop Date: 01/13/18 Status: DeletedCepacol Sore Throat 15 mg-3.6 mg mucous membrane lozenge 1 lozenge, Route: MUCOUS MEM, Drug Form: JORGE, Dosing Weight 52.273, kg, Q2H, PRN Sore Throat, Start date: 01/14/18 0:24:00 CDT, Duration: 30 day, Stop date: 02/13/18 0:23:00 CDT Notes: Cepacol lozengesDispense 1 box=16 lozenges (Same As: Cepacol Lozenges) Start Date: 01/14/18 Stop Date: 01/15/18 Status: Discontinueddexamethasone (ANES) Route: IV, Drug form: INJ, ONCE, Stop date: 01/13/18 9:05:00 CDT Start Date: 01/13/18 Stop Date: 01/13/18 Status: Completeddexmedetomidine (ANES) + Sodium Chloride 0.9% IV (ANES) 100 mL Route: IV, Drug form: INJ, ONCE, Stop date: 01/13/18 8:55:00 CDT Start Date: 01/13/18 Stop Date: 01/13/18 Status: Completeddocusate 100 mg, 1 cap, Route: PO, Drug form: CAP, BID, Dosing Weight 51.818, kg, Start date: 01/13/18 17:00:00 CDT, Duration: 30 day, Stop date: 02/12/18 9:00:00 CDT Notes: (Same as: Colace) (Do Not Crush) Start Date: 01/13/18 Stop Date: 01/15/18 Status: Discontinuedenoxaparin 40 mg, 0.4 mL, Route: SUB-Q, Drug form: INJ, [id number], Dosing Weight 51.818, kg , Start date: 01/13/18 10:00:00 CDT, Stop date: 02/11/18 10:00:00 CDT Notes: (Same as: Lovenox) Start Date: 01/13/18 Stop Date: 01/15/18 Status: Discontinuedeszopiclone 1 mg, Route: PO, Drug form: TAB, Bedtime, Dosing Weight 51.818, kg, PRN Insomnia , Start date: 01/13/18 12:25:00 CDT, Duration: 30 day, Stop date: 02/12/18 12:24 :00 CDT Start Date: 01/13/18 Stop Date: 01/13/18 Status: Deletedfamotidine (ANES) Route: IV, Drug form: INJ, ONCE, Stop date: 01/13/18 9:05:00 CDT Start Date: 01/13/18 Stop Date: 01/13/18 Status: CompletedfentaNYL (ANES) Route: IV, Drug form: INJ, ONCE, Stop date: 01/13/18 9:05:00 CDT Start Date: 01/13/18 Stop Date: 01/13/18 Status: CompletedFLUoxetine 20 mg, 1 cap, Route: PEG, Drug form: CAP, Daily, Dosing Weight 51.818, kg, Start date: 01/14/18 9:00:00 CDT, Duration: 30 day, Stop date: 02/12/18 9:00:00 CDT Notes: (Same as: Prozac, Sarafem) Start Date: 01/14/18 Stop Date: 01/15/18 Status: DiscontinuedLactated Ringers Injection IV (ANES) 1000 mL Route: IV, Total Volume: 1,000, Start date: 01/13/18 7:45:00 CDT, Stop date: 07/23 8:45:00 CDT Start Date: 01/13/18 Stop Date: 01/13/18 Status: CompletedlevETIRAcetam 100 mg/mL oral solution 750 mg, 7.5 mL, Route: PO, Drug form: SOLN, Q12H, Dosing Weight 51.818, kg, Start date: 01/13/18 18:00:00 CDT, Duration: 30 day, Stop date: 02/12/18 6:00: 00 CDT Notes: Same as: Keppra Start Date: 01/13/18 Stop Date: 01/15/18 Status: Discontinuedlevothyroxine 88 microgram, 1 tab, Route: PO, Drug form: TAB, Q630AM, Dosing Weight 51.818, kg , Start date: 01/14/18 6:30:00 CDT, Duration: 30 day, Stop date: 02/12/18 6:30: 00 CDT Notes: Take 1 hour before or 2 hours after meal; Enteral feeds may interefere with the absorption ofthis medication. (Same as:Synthroid) Start Date: 01/14/18 Stop Date: 01/15/18 Status: Discontinuedlidocaine (ANES) Route: IV, Drug form: INJ, ONCE, Stop date: 01/13/18 9:05:00 CDT Start Date: 01/13/18 Stop Date: 01/13/18 Status: Completedmetoprolol tartrate 12.5 mg, 0.5 tab, Route: PO, Drug form: TAB, Q12H, Dosing Weight 51.818, kg, Start date: 01/13/18 21:00:00 CDT, Duration: 30 day, Stop date: 02/12/18 9:00: 00 CDT Notes: (Same as: Lopressor) 12.5 mg=1/2 X 25 mg TAB Start Date: 01/13/18 Stop Date: 01/15/18 Status: Discontinuedmidazolam (ANES) Route: IV, Drug form: SOLN, ONCE, Stop date: 01/13/18 9:35:00 CDT Start Date: 01/13/18 Stop Date: 01/13/18 Status: Completedmorphine Sulfate 2 mg, 0.5 mL, Route: IVP, Drug form: INJ, Q4H, Dosing Weight 51.818, kg, PRN Pain Score 7-10, Start date: 01/13/18 9:59:00 CDT, Duration: 30 day, Stop date: 02/12/18 9:58:00 CDT Notes: (Same as:MORPhine Sulfate) Start Date: 01/13/18 Stop Date: 01/15/18 Status: Discontinuednorepinephrine (ANES) Route: IV, Drug form: INJ, ONCE, Stop date: 01/13/18 9:35:00 CDT Start Date: 01/13/18 Stop Date: 01/13/18 Status: Completedomeprazole 20 mg, Route: PO, Daily, Dosing Weight 51.818, kg, Start date: 01/14/18 9:00:00 CDT, Duration: 30 day, Stop date: 02/12/18 9:00:00 CDT Start Date: 01/14/18 Stop Date: 01/13/18 Status: Deletedondansetron 4 mg, 2 mL, Route: IVP, Drug form: INJ, Q6H, Dosing Weight 51.818, kg, PRN Nausea & Vomiting, Start date: 01/13/18 9:59:00 CDT, Duration: 30 day, Stop date: 02/12/18 9:58:00 CDT Notes: (Same as: Zofran) MEDICATION WASTE Product Size: 4 mgProduct Wasted: ___ mg Start Date: 01/13/18 Stop Date: 01/15/18 Status: Discontinuedondansetron (ANES) Route: IV, Drug form: INJ, ONCE, Stop date: 01/13/18 9:05:00 CDT Start Date: 01/13/18 Stop Date: 01/13/18 Status: Completedpiperacillin-tazobactam (ANES) 3375 mg Route: IV, Drug form: INJ, Start date: 01/13/18 8:49:00 CDT, Stop date: 9:49:00 CDT Start Date: 01/13/18 Stop Date: 01/13/18 Status: CompletedPrevacid 30 mg, 10 mL, Route: PO, Drug form: SUSP, Daily, Start date: 01/14/18 9:00:00 CDT, Duration: 30 day,Stop date: 02/12/18 9:00:00 CDT Notes: Take 1 hour before or 2 hours after meal; Expires in 14 days. Shake well before use. (Same as:Prevacid) Compounded Product - formulation not commercially available Start Date: 01/14/18 Stop Date: 01/15/18 Status: Discontinuedpropofol (ANES) Route: IV, Drug form: INJ, ONCE, Stop date: 01/13/18 9:05:00 CDT Start Date: 01/13/18 Stop Date: 01/13/18 Status: Completedvancomycin 1 gm, Route: IVPB, Drug form: INJ, PRE OP, Start date: 01/13/18 1:00:00 CDT, Duration: 1 day, Stop date: 01/14/18 0:59:00 CDT, ABX Indication: Surgical Prophylaxis Notes: TIME CRITICAL MEDICATION(Same As: Vancocin)Infusion rate< 1000 mg: infuse over 1 [id number] - 1500 mg: infuse over 1.5 [id number] - 2000 mg: infuse over 2 hours> 2001 mg: infuse over 2.5 hoursFor adult patients only: Round to nearest 250 mg per Medical Staff approval MEDICATION WASTE Product Size: 1000 mgProduct Wasted: ___ mg Start Date: 01/13/18 Stop Date: 01/13/18 Status: Completedvancomycin (ANES) 1000 mg Route: IV, Drug form: INJ, Start date: 01/13/18 8:20:00 CDT, Stop date: 9:20:00 CDT Start Date: 01/13/18 Stop Date: 01/13/18 Status: Completedzolpidem 5 mg, 1 tab, Route: PO, Drug form: TAB, Bedtime, PRN Insomnia, Start date: 01/13 16:12:00 CDT, Duration: 30 day, Stop date: 02/12/18 16:11:00 CDT Notes: (Same As: Amie) Start Date: 01/13/18 Stop Date: 01/15/18 Status: Discontinued Results ELECTROLYTES Most recent to oldest [Reference Range]: 1 Sodium Lvl [135-145 mEq/L] 143 mEq/L (01/14/18 12:34 AM) Potassium Lvl [3.5-5.1 mEq/L] 3.9 mEq/L (01/14/18 12:34 AM) Chloride Lvl [95-109 mEq/L] 106 mEq/L (01/14/18 12:34 AM) CO2 [24-32 mEq/L] 27 mEq/L (01/14/18 12:34 AM) AGAP [10.0-20.0 mEq/L] 13.9 mEq/L (01/14/18 12:34 AM) CHEM PANEL Most recent to oldest [Reference Range]: 1 Creatinine Lvl [0.50-1.40 mg/dL] 0.55 mg/dL (01/14/18 12:34 AM) eGFR 107 mL/min/1.73m2 1 *NA* (01/14/18 12:34 AM) BUN [7-22 mg/dL] 20 mg/dL (01/14/18 12:34 AM) Glucose Lvl [70-99 mg/dL] 108 mg/dL *HI* (01/14/18 12:34 AM) Calcium Lvl [8.5-10.5 mg/dL] 9.5 mg/dL (01/14/18 12:34 AM) 1Result Comment: The eGFR is calculated [...] eGFR should be multiplied by the estimated BMI.HEMATOLOGY Most recent to oldest [Reference Range]: 1 WBC [3.7-10.4 K/CMM] 12.6 K/CMM *HI* (01/14/18:34 AM) RBC [4.20-5.40 M/CMM] 3.82 M/CMM *LOW* (01/14/1834 AM) Hgb [12.0-16.0 g/dL] 11.5 g/dL *LOW* (01/14/18 AM) Hct [36.0-48.0 %] 35.4 % *LOW* (01/14/18:34 AM) MCV [80.0-98.0 fL] 92.7 fL (01/14/18:34 AM) MCH [27.0-31.0 pg] 30.2 pg (01/14/18:34 AM) MCHC [32.0-36.0 g/dL] 32.5 g/dL (01/14/18 12:34 AM) RDW [11.5-14.5 %] 14.0 % (01/14/18:34 AM) MPV [7.4-10.4 fL] 9.5 fL (01/14/18:34 AM) Platelet [133-450 K/CMM] 259 K/CMM (01/14/18:34 AM) Segs [45.0-75.0 %] 75.5 % *HI* (01/14/1834 AM) Lymphocytes [20.0-40.0 %] 19.8 % *LOW* (01/14/18: AM) Monocytes [2.0-12.0 %] 4.5 % (01/14/18 12:34 AM) Basophils [0.0-1.0 %] 0.2 % (01/14/18 12:34 AM) Segs-Bands # [1.5-8.1 K/CMM] 9.5 K/CMM *HI* (01/14/18 12:34 AM) Lymphocytes # [1.0-5.5 K/CMM] 2.5 K/CMM (01/14/18 12:34 AM) Monocytes # [0.0-0.8 K/CMM] 0.6 K/CMM (01/14/18 12:34 AM) Immunizations Given and Recorded Vaccine Date [...] Completed of thorax2 Tracheostomy Completed 1Several spinal [id number] seperate procedures. the last one was more [...] on: 01/13/18 1denies Exercise Assessment and Plan Extracted from: Title: ENT Progress Note Author: Jameel Stephenson MD Date: 01/14/18 ENT Progress Note S: Doing well post op. No concerns this AM O: Vitals Tmp(F) Pulse BP RR SpO2 FIO2 01/14 10:00 ---- 93 112/56 26 97 --- 01/14 09:00 97.9 98 112/65 24 98 --- 01/14 08:00 ---- 90 113/59 35 99 --- 01/14 07:00 98.1 89 108/61 34 97 --- 01/14 06:00 ---- 90 ----- 20 --- --- 24 Hr Tmax: 98.1F (36.72c) at 01/14 07:00 Vital Signs are the last 5 in the past 48 hours. Awake, alert, no acute distress TLS drain in place with ss drainage Neck soft, flat, minimally tender. No crepitus Incision clean, dry and intact Breathing comfortably on room air A/P: 52 year old lady with hx of aneuysms, craniectomy, HTN, HLD, PEG, trach s/p tracheocutaneous fistula closure 01/13 - Doing well post op - Plan for DC home today - Removeing TLS drain - Return to home feeding and medication regimen - Follow up at scheduled post-op appointment Jameel Stephenson Otolaryngology PGY-1 [facility] #[id number] Please page with any questions or concerns: [phone]
--- OUTSIDE RECORDS SUMMARY | 2019-01-05 19:41 | XMS REPORT | Summary of Care ---
:[address] [facility] Address [address] [place], [place] [address] Encounter HQ Juanr_johanna(FIN) [id number] Date(s): 02/16/18 - 02/16/[address] [phone] Discharge Disposition: Home or Self Care Attending Physician: Tania Brandt MD Referring Physician: Isa Santamaria MD Vital Signs Most recent to oldest [Reference Range]: 1 Height 154.94 cm (02/16/18 2:59 PM) Blood Pressure [90-140/60-90 mmHg] 106/68 mmHg (02/16/18 2:59 PM) Respiratory Rate [14-20 BRMIN] 20 BRMIN (02/16/18 2:59 PM) Peripheral Pulse Rate [60-100 bpm] 76 bpm (02/16/18 2:59 PM) Weight 49.545 kg (02/16/18 2:59 PM) Body Mass Index 20.64 m2 (02/16/18 2:59 PM) Problem List Condition Effective Dates Status [...] Subarachnoid Active hemorrhage(Confirmed) Stroke(Confirmed) Active 1Clipped in [address]Tcunoqtd Aspirate - 06/17/201795624Tkklzokm Aspirate - [id number] - 77170Ctipeaa added by Discern Expert.6Tracheal Aspirate - 41407Gibaphqz Aspirate - 79547Nwbklqr added by Discern Expert. Allergies, Adverse Reactions, Alerts Substance Reaction Severity Status promethazine Active Phenergan Phenergan Active Medications acetaminophen-codeine 300 mg-60 mg oral tablet 1 tab=, PO, Q6H, PRN Pain, X 30 day, # 30 tab, 3 Refill(s) Start Date: 02/16/18 Stop Date: 02/16/18 Status: Discontinuedacetaminophen-codeine 300 mg-60 mg oral tablet 1 tab=, PO, Q6H, PRN Pain, X 30 day, # 30 tab, 3 Refill(s) Start Date: 02/16/18 Stop Date: 06/16/18 Status: OrderedDulera 100 mcg-5 mcg/inh inhalation aerosol 2 puff, INHALER, BID, # 1 ea, 3 Refill(s), Pharmacy: [facility]/pharmacy #[id number] Start Date: 02/16/18 Status: Ordered Results ELECTROLYTES Most recent to oldest [Reference Range]: 1 Sodium Lvl [135-145 mEq/L] 148 mEq/L *HI* (02/16/18 5:14 PM) Potassium Lvl [3.5-5.1 mEq/L] 3.7 mEq/L (02/16/18 5:14 PM) Chloride Lvl [95-109 mEq/L] 112 mEq/L *HI* (02/16/18 5:14 PM) CO2 [24-32 mEq/L] 29 mEq/L (02/16/18 5:14 PM) AGAP [10.0-20.0 mEq/L] 10.7 mEq/L (02/16/18 5:14 PM) CHEM PANEL Most recent to oldest [Reference Range]: 1 Creatinine Lvl [0.50-1.40 mg/dL] 0.60 mg/dL (02/16/18 5:14 PM) eGFR 104 mL/min/1.73m2 1 *NA* (02/16/18 5:14 PM) BUN [7-22 mg/dL] 20 mg/dL (02/16/18 5:14 PM) B/C Ratio [6-25] 33 *HI* (02/16/18 5:14 PM) Glucose Lvl [70-99 mg/dL] 91 mg/dL (02/16/18 5:14 PM) Total Protein [6.4-8.4 g/dL] 8.2 g/dL (02/16/18 5:14 PM) Albumin Lvl [3.5-5.0 g/dL] 3.0 g/dL *LOW* (02/16/18 5:14 PM) Globulin [2.7-4.2 g/dL] 5.2 g/dL *HI* (02/16/18 5:14 PM) A/G Ratio [0.7-1.6] 0.6 *LOW* (02/16/18 5:14 PM) Calcium Lvl [8.5-10.5 mg/dL] 9.7 mg/dL (02/16/18 5:14 PM) ALT [0-65 unit/L] 20 unit/L (02/16/18 5:14 PM) AST [0-37 unit/L] 8 unit/L (02/16/18 5:14 PM) Alk Phos [39-136 unit/L] 262 unit/L *HI* (02/16/18 5:14 PM) Bili Total [0.2-1.3 mg/dL] 0.4 mg/dL (02/16/18 5:14 PM) 1Result Comment: The eGFR is calculated [...] Range]: 1 UA Turbidity [Clear] Marked *ABN* (02/16/18 5:14 PM) UA Color [Yellow] Yellow *NA* (02/16/18 5:14 PM) UA pH [5.0-8.0] 6.0 (02/16/18 5:14 PM) UA Spec Grav [<=1.030] 1.020 (02/16/18 5:14 PM) UA Glucose [Negative mg/dL] Negative mg/dL *NA* (02/16/18 5:14 PM) UA Blood [Negative] Moderate *ABN* (02/16/18 5:14 PM) UA Ketones [Negative mg/dL] Negative mg/dL *NA* (02/16/18 5:14 PM) UA Protein [Negative mg/dL] 100 mg/dL *ABN* (02/16/18 5:14 PM) UA Urobilinogen [0.1-1.0 mg/dL] <=1.0 mg/dL *NA* (02/16/18 5:14 PM) UA Bili [Negative] Negative *NA* (02/16/18 5:14 PM) UA Leuk Est [Negative] Large *ABN* (02/16/18 5:14 PM) UA Nitrite [Negative] Negative (02/16/18 5:14 PM) UA WBC [0-5 /HPF] >182 /HPF *HI* (02/16/18 5:14 PM) UA RBC [0-2 /HPF] 158 /HPF *HI* (02/16/18 5:14 PM) UA Bacteria [None Seen /HPF] Many /HPF *ABN* (02/16/18 5:14 PM) UA Sq Epi [Few /LPF] Many /LPF *ABN* (02/16/18 5:14 PM) UA Mucus [None Seen /LPF] Many /LPF *ABN* (02/16/18 5:14 PM) HEMATOLOGY Most recent to oldest [Reference Range]: 1 WBC [3.7-10.4 K/CMM] 10.2 K/CMM (02/16/18 5:14 PM) RBC [4.20-5.40 M/CMM] 4.14 M/CMM *LOW* (02/16/18 5:14 PM) Hgb [12.0-16.0 g/dL] 12.4 g/dL (02/16/18 5:14 PM) Hct [36.0-48.0 %] 37.9 % (02/16/18 5:14 PM) MCV [80.0-98.0 fL] 91.4 fL (02/16/18 5:14 PM) MCH [27.0-31.0 pg] 29.8 pg (02/16/18 5:14 PM) MCHC [32.0-36.0 g/dL] 32.6 g/dL (02/16/18 5:14 PM) RDW [11.5-14.5 %] 15.2 % *HI* (02/16/18 5:14 PM) MPV [7.4-10.4 fL] 9.0 fL (02/16/18 5:14 PM) Platelet [133-450 K/CMM] 371 K/CMM (02/16/18 5:14 PM) Segs [45.0-75.0 %] 58.3 % (02/16/18 5:14 PM) Lymphocytes [20.0-40.0 %] 32.9 % (02/16/18 5:14 PM) Monocytes [2.0-12.0 %] 5.6 % (02/16/18 5:14 PM) Eosinophils [0.0-4.0 %] 2.3 % (02/16/18 5:14 PM) Basophils [0.0-1.0 %] 0.9 % (6/14/18 5:14 PM) Segs-Bands # [1.5-8.1 K/CMM] 5.9 K/CMM (02/16/18 5:14 PM) Lymphocytes # [1.0-5.5 K/CMM] 3.3 K/CMM (02/16/18 5:14 PM) Monocytes # [0.0-0.8 K/CMM] 0.6 K/CMM (02/16/18 5:14 PM) Eosinophils # [0.0-0.5 K/CMM] 0.2 K/CMM (02/16/18 5:14 PM) Basophils # [0.0-0.2 K/CMM] 0.1 K/CMM (02/16/18 5:14 PM) Immunizations Given and Recorded Vaccine Date [...] Completed of thorax2 Tracheostomy Completed 1Several spinal [id number] seperate procedures. the last one was more [...] Tobacco Frequency quit january 2016; entered on: 02/16/18 1denies Exercise Assessment and Plan No data available for this section
--- OUTSIDE RECORDS SUMMARY | 2019-01-05 19:42 | XMS REPORT | Summary of Care ---
:1965 Author Organization [facility] Address [address] [place], [place] [address] Encounter [facility] Williams(FIN) [id number] Date(s): 11/30/17 - 11/30/[address] OQ Encounter Diagnosis Hemiplegia and hemiparesis following cerebral infarction affecting right dominant side (Final) - 12/03/17 Other disorders of lung (Final) - Tracheostomy status (Final) - Cough (Final) - Unspecified fall, sequela (Final) - Discharge Disposition: Home or Self Care Attending Physician: Isa Santamaria MD Referring Physician: Isa Santamaria MD Vital Signs Most recent to oldest [Reference Range]: 1 Height 162.56 cm (11/30/17 3:45 PM) Blood Pressure [90-140/60-90 mmHg] 110/68 mmHg (11/30/17 3:45 PM) Respiratory Rate [14-20 BRMIN] 20 BRMIN (11/30/17 3:45 PM) Peripheral Pulse Rate [60-100 bpm] 87 bpm (11/30/17 3:45 PM) Weight 49.545 kg (11/30/17 3:45 PM) Body Mass Index 18.75 m2 (11/30/17 3:45 PM) Problem List Condition Effective Dates Status [...] Subarachnoid Active hemorrhage(Confirmed) Stroke(Confirmed) Active 1Clipped in 07866Ydcupvhb Aspirate - 06/17/201738100Wgkooyca Aspirate - [id number] - [id number] added by Discern Expert.6Tracheal Aspirate - 54122Xmzhsoii Aspirate - 07291Sijmnsf added by Discern Expert. Allergies, Adverse Reactions, Alerts Substance Reaction Severity Status promethazine Active Phenergan Phenergan Active Medications acetaminophen-codeine #3 1 tab, PO, PRN, 0 Refill(s) Start Date: 11/30/17 Stop Date: 12/12/17 Status: Completedacetaminophen-codeine 300 mg-60 mg oral tablet 1 tab=, PO, Q6H, PRN Pain, X 30 day, # 30 tab, 3 Refill(s) Start Date: 11/30/17 Stop Date: 02/16/18 Status: DiscontinuedAdvair Diskus 250 mcg-50 mcg inhalation powder 1 puff, INHALATION, BID, # 1 ea, 3 Refill(s), Pharmacy: [id number] Start Date: 11/30/17 Stop Date: 03/30/18 Status: Orderedbenzonatate 100 mg oral capsule 100 mg=1 cap, PO, TID, do not crush or chew, # 60 cap, 3 Refill(s), Pharmacy: [facility][id number] Start Date: 11/30/17 Stop Date: 11/30/18 Status: Ordered Results No data available for [...] Completed of thorax2 Tracheostomy Completed 1Several spinal [id number] seperate procedures. the last one was more [...]
--- OUTSIDE RECORDS SUMMARY | 2019-01-05 19:42 | XMS REPORT | Summary of Care ---
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) - 12/07/17 Discharge Disposition: Home or Self Care Attending Physician: Tania Brandt MD Referring Physician: Tania Brandt MD Vital Signs Most recent to oldest [Reference Range]: 1 Blood Pressure [90-140/60-90 mmHg] 99/65 mmHg (11/01/17 3:59 PM) Peripheral Pulse Rate [60-100 bpm] 89 bpm (11/01/17 3:59 PM) Problem List Condition Effective Dates Status [...] Subarachnoid Active hemorrhage(Confirmed) Stroke(Confirmed) Active 1Clipped in 61771Iezobmol Aspirate - 06/17/201771978Vvkehloz Aspirate - [id number] - 05/06/201716536Xntvcgn added by Discern Expert.6Tracheal Aspirate - 13357Zcyhdlit Aspirate - 08809Pfoaxik added by Discern Expert. Allergies, Adverse Reactions, [...] Completed of thorax2 Tracheostomy Completed 1Several spinal [id number] seperate procedures. the last one was more [...]
--- OUTSIDE RECORDS SUMMARY | 2019-01-05 19:42 | XMS REPORT | Summary of Care ---
:1965 Author Organization [facility] Address [address] [place], [place] [address] Encounter HQ Elijah_johanna(FIN) [id number] Date(s): 11/15/17 - 11/15/[address] [phone] Encounter Diagnosis Epilepsy, unspecified, not intractable, without status epilepticus (Final) - Localization-related (focal) (partial) symptomatic epilepsy and epileptic syndromes with simple partial seizures, not intractable, without status epilepticus (Final) - Insomnia, unspecified (Final) - Body mass index (BMI) 20.0-20.9, adult (Final) - Discharge Disposition: Home or Self Care Attending Physician: Angeles Haque MD Referring Physician: Angeles Haque MD Vital Signs Most recent to oldest [Reference Range]: 1 Height 157.48 cm (11/15/17 10:59 AM) Blood Pressure [90-140/60-90 mmHg] 105/54 mmHg (11/15/17 10:59 AM) Respiratory Rate [14-20 BRMIN] 22 BRMIN *HI* (11/15/17 10:59 AM) Peripheral Pulse Rate [60-100 bpm] 95 bpm (11/15/17 10:59 AM) Weight 49.545 kg (11/15/17 10:59 AM) Body Mass Index 19.98 m2 (11/15/17 10:59 AM) Problem List Condition Effective Dates Status [...] Subarachnoid Active hemorrhage(Confirmed) Stroke(Confirmed) Active 1Clipped in 75524Mqpuabod Aspirate - 06/17/201749538Vmzveaug Aspirate - 201667590Hglxpw - 05/06/201772028Vwgpxps added by Discern Expert.6Tracheal Aspirate - 79215Naxewoir Aspirate - 05/22/201774704Sfeusqo added by Discern Expert. Allergies, Adverse Reactions, Alerts Substance Reaction Severity Status promethazine Active Phenergan Phenergan Active Medications eszopiclone 1 mg oral tablet 1 mg=1 tab, PO, Bedtime, PRN for insomnia, # 30 tab, 5 Refill(s) Start Date: 11/15/17 Status: OrderedlevETIRAcetam 100 mg/mL oral solution 750 mg=7.5 mL, PO, Q12H, # 1350 mL, 3 Refill(s), Pharmacy: [facility]/pharmacy #[id number] Start Date: 11/15/17 Stop Date: 11/10/18 Status: Orderedtramadol 50 mg oral tablet 50 mg=1 tab, PO, PRN, 0 Refill(s) Start Date: 11/15/17 Stop Date: 11/15/17 Status: Discontinued Results No data available for this section [...] Completed of thorax2 Tracheostomy Completed 1Several spinal rxxpyqpqvk3corv seperate procedures. the last one was more [...]
--- OUTSIDE RECORDS SUMMARY | 2019-01-05 19:42 | XMS REPORT | Summary of Care ---
:1965 Author Organization [facility] Address [address] [place], [place] [address] Encounter HQ Elijah_johanna(FIN) [id number] Date(s): 03/03/18 - 03/03/[address] [place] [phone] Discharge Disposition: Home or Self Care Attending Physician: Tania Brandt MD Referring Physician: Tania Brandt MD Vital Signs No [...] Subarachnoid Active hemorrhage(Confirmed) Stroke(Confirmed) Active 1Clipped in 62119Tgotlzbi Aspirate - 06/17/201709905Ikuaqsvy Aspirate - 201661283Mwjsyr - 05/06/201738831Npxjtjy added by Discern Expert.6Tracheal Aspirate - 87632Ultiuhcc Aspirate - 05/22/201707742Aqfofnt added by Discern Expert. Allergies, Adverse Reactions, [...] Completed of thorax2 Tracheostomy Completed 1Several spinal przolszvch5izkt seperate procedures. the last one was more [...]
--- OUTSIDE RECORDS SUMMARY | 2019-01-05 19:42 | XMS REPORT | Summary of Care ---
:1965 Author Organization [facility] Neurosurgery [facility] Address [address] [place] [address], [address] [place] [address]- Encounter HQ Elijah_johanna(FIN) [id number] Date(s): 03/06/18 - 03/07/18 [facility] [address] [facility], [address] [place] [address] [phone] Vital Signs No data available for this [...] Subarachnoid Active hemorrhage(Confirmed) Stroke(Confirmed) Active 1Clipped in 22750Ktpndzcy Aspirate - 10/13/87481Czrokzkp Aspirate - 201683687Vtvlqb - 05/06/201788027Gzcpcem added by Discern Expert.6Tracheal Aspirate - 72525Yqqhunot Aspirate - 04684Qfqcgoh added by Discern Expert. Allergies, Adverse Reactions, [...] Completed of thorax2 Tracheostomy Completed 1Several spinal xbbnfdhpnw2mkuv seperate procedures. the last one was more [...]
--- OUTSIDE RECORDS SUMMARY | 2019-01-05 19:43 | XMS REPORT | Summary of Care ---
:1965 Author Organization [facility] Address [address] [place], [place] [address] Encounter HQ Elijah_johanna(FIN) [id number] Date(s): 12/12/17 - 12/12/[address] Encounter Diagnosis Other abnormalities of gait and mobility (Final) - 12/16/17 Other seizures (Final) - Other symptoms and signs involving cognitive functions and awareness (Final) - Other sequelae of cerebral infarction (Final) - Discharge Disposition: Home or Self Care Attending Physician: Tania Brandt MD Referring Physician: Tania Brandt MD Vital Signs Most recent to oldest [Reference Range]: 1 Height 157.48 cm (12/12/17 10:24 AM) Blood Pressure [90-140/60-90 mmHg] 103/59 mmHg (12/12/17 10:24 AM) Respiratory Rate [14-20 BRMIN] 18 BRMIN (12/12/17 10:24 AM) Peripheral Pulse Rate [60-100 bpm] 90 bpm (12/12/17 10:24 AM) Weight 49.545 kg (12/12/17 10:24 AM) Body Mass Index 19.98 m2 (12/12/17 10:24 AM) Problem List Condition Effective Dates Status [...] Subarachnoid Active hemorrhage(Confirmed) Stroke(Confirmed) Active 1Clipped in 09832Tbexlqqk Aspirate - 06/17/201703983Gydezijd Aspirate - 201670188Ewjubv - 05/06/201770544Jnidzjh added by Discern Expert.6Tracheal Aspirate - 18061Awdopetx Aspirate - 05/22/201721788Oqyuqyy added by Discern Expert. Allergies, Adverse Reactions, Alerts Substance Reaction Severity Status promethazine Active Phenergan Phenergan Active Medications albuterol-ipratropium 2.5-0.5 mg inhalation solution 3 mL, NEB, TRTID, Handheld Nebulizer, # 270 mL, 1 Refill(s), Pharmacy: [facility] #[id number] Start Date: 12/16/17 Stop Date: 02/14/18 Status: Completedalbuterol-ipratropium 2.5-0.5 mg inhalation solution See Instructions, # 270 mL, Refill(s) 1, USE IN NEBULIZER 1 VIAL 3 TIMES A DAY, Pharmacy: [facility] #[id number] Start Date: 03/17/18 Status: Orderedalbuterol-ipratropium 2.5-0.5 mg inhalation solution See Instructions, # 270 mL, USE IN NEBULIZER 1 VIAL 3 TIMES A DAY, Pharmacy: [facility] #[id number] Start Date: 02/14/18 Stop Date: 03/17/18 Status: CompletedlevETIRAcetam 100 mg/mL oral solution 750 mg=7.5 mL, PEG, U52Q-66, # 450 mL, 0 Refill(s), Pharmacy: [facility]/pharmacy #[id number] Start Date: 10/18/17 Stop Date: 10/27/17 Status: Discontinued Results No data available for [...] Completed of thorax2 Tracheostomy Completed 1Several spinal qmwmmmowau1kznp seperate procedures. the last one was more [...] Tobacco Frequency quit january 2016; entered on: 03/15/18 1denies Exercise Assessment and Plan No data available for this section
--- OUTSIDE RECORDS SUMMARY | 2019-01-05 19:43 | XMS REPORT | Summary of Care ---
:1965 Author Organization [facility] Address [address] [place], [place] [address] Encounter HQ Juanr_johanna(FIN) [id number] Date(s): 03/15/18 - 03/15/[address] Discharge Disposition: Home or Self Care Attending Physician: Angeles Haque MD Referring Physician: Angeles Haque MD Vital Signs Most recent to oldest [Reference Range]: 1 Height 157.48 cm (03/15/18 3:42 PM) Blood Pressure [90-140/60-90 mmHg] 105/62 mmHg (03/15/18 3:42 PM) Respiratory Rate [14-20 BRMIN] 16 BRMIN (03/15/18 3:42 PM) Peripheral Pulse Rate [60-100 bpm] 83 bpm (03/15/18 3:42 PM) Weight 49.545 kg (03/15/18 3:42 PM) Body Mass Index 19.98 m2 (03/15/18 3:42 PM) Problem List Condition Effective Dates Status [...] Subarachnoid Active hemorrhage(Confirmed) Stroke(Confirmed) Active 1Clipped in 51744Tyfptcsq Aspirate - 06/17/201705436Etzmytfw Aspirate - 201667310Wcoynm - 05/06/201774959Puskpqc added by Discern Expert.6Tracheal Aspirate - 20802Jsnrpehn Aspirate - 05/22/201797144Frdtsga added by Discern Expert. Allergies, Adverse Reactions, Alerts Substance Reaction Severity Status promethazine Active Phenergan Phenergan Active Medications Dulera 100 mcg-5 mcg/inh inhalation aerosol 2 puff, INHALER, BID, # 1 ea, 3 Refill(s) Start Date: 03/15/18 Status: Orderedeszopiclone 1 mg oral tablet 1 mg=1 tab, PO, Bedtime, PRN for insomnia, # 30 tab, 5 Refill(s) Start Date: 03/15/18 Status: OrderedlevETIRAcetam 100 mg/mL oral solution 750 mg=7.5 mL, PO, Q12H, # 1350 mL, 3 Refill(s), Pharmacy: [facility]/pharmacy #[id number] Start Date: 03/15/18 Stop Date: 03/10/19 Status: Ordered Results No data available for [...] Completed of thorax2 Tracheostomy Completed 1Several spinal vqjzrediyv0cxxq seperate procedures. the last one was more [...]
--- OUTSIDE RECORDS SUMMARY | 2019-01-05 19:43 | XMS REPORT | Summary of Care ---
:1965 Author Organization [facility] Neurosurgery [facility] Address [address] [place] [address], [address] [place] [address]- Encounter HQ Elijah_johanna(FIN) [id number] Date(s): 03/15/18 - 03/16/18 [facility] [address] [place] [address], [address] [place] [address] [phone] Vital Signs No data available for this [...] Subarachnoid Active hemorrhage(Confirmed) Stroke(Confirmed) Active 1Clipped in 09774Mggvflsl Aspirate - 10/13/47156Jxosgozg Aspirate - 201605205Oebwfp - 05/06/201737080Vkxlsde added by Discern Expert.6Tracheal Aspirate - 75624Zfmgavdo Aspirate - 16421Bgdoame added by Discern Expert. Allergies, Adverse Reactions, [...] Completed of thorax2 Tracheostomy Completed 1Several spinal elbvjoojue2qnea seperate procedures. the last one was more [...]
--- OUTSIDE RECORDS SUMMARY | 2019-01-05 19:43 | XMS REPORT | Summary of Care ---
:1965 Author Organization [facility] Address [address] [place], [place] [address] Encounter HQ Williams(FIN) [id number] Date(s): 12/12/17 - 12/12/[address] Encounter Diagnosis Other abnormalities of gait [...] Subarachnoid Active hemorrhage(Confirmed) Stroke(Confirmed) Active 1Clipped in 83222Uiuxkisc Aspirate - 06/17/201721573Awfkimbp Aspirate - 201658977Kukuep - 05/06/201762281Mspuesm added by Discern Expert.6Tracheal Aspirate - 11183Ttwpufhq Aspirate - 05/22/201780326Kepqtbm added by Discern Expert. Allergies, Adverse Reactions, Alerts Substance Reaction Severity Status promethazine Active Phenergan Phenergan Active Medications albuterol-ipratropium 2.5-0.5 mg inhalation solution 3 mL, NEB, TRTID, Handheld Nebulizer, # 270 mL, 1 Refill(s), Pharmacy: [facility] #[id number] Start Date: 12/16/17 Stop Date: 02/14/18 Status: Completedalbuterol-ipratropium 2.5-0.5 mg inhalation solution See Instructions, # 270 mL, Refill(s) 1, USE IN NEBULIZER 1 VIAL 3 TIMES A DAY, Pharmacy: [id number] Start Date: 03/17/18 Status: Orderedalbuterol-ipratropium 2.5-0.5 mg inhalation solution See Instructions, # 270 mL, USE IN NEBULIZER 1 VIAL 3 TIMES A DAY, Pharmacy: [facility] #[id number] Start Date: 02/14/18 Stop Date: 03/17/18 Status: CompletedlevETIRAcetam 100 mg/mL oral solution 750 mg=7.5 mL, PEG, F80T-43, # 450 mL, 0 Refill(s), Pharmacy: [facility]/pharmacy #[id number] Start Date: 10/18/17 Stop Date: 10/27/17 [...] Completed of thorax2 Tracheostomy Completed 1Several spinal kqmfjlpqst3dayx seperate procedures. the last one was more [...]
--- OUTSIDE RECORDS SUMMARY | 2019-01-05 19:43 | XMS REPORT | Summary of Care ---
:1965 Author Organization [facility] Address [address] [place] [address]- Encounter HQ Encntr_alias(FIN) [id number] Date(s): 12/01/17 - 12/02/[address] Professional Services provided by [facility] [place] [address]- Encounter Diagnosis Seizure (Discharge Diagnosis) - 12/02/17 Acute UTI (Discharge Diagnosis) - 12/02/17 Epilepsy, unspecified, not intractable, without status epilepticus (Final) - 12/08 Urinary tract infection, site not specified (Final) - Cough (Final) - Essential (primary) hypertension (Final) - Personal history of nicotine dependence (Final) - Discharge Disposition: Home or Self Care Attending Physician: Varinder Pretty MD Vital Signs Most recent to oldest 1 2 3 [Reference Range]: Height 157.48 cm (12/01/17 7:02 PM) Temperature Oral [96.4-99.1 98.4 DegF 99.4 DegF 98.1 DegF DegF] (12/02/17 1:50 AM) *HI* (12/01/17 9:08 PM) (12/01/17 11:00 PM) Blood Pressure [90-140/60-90 113/61 mmHg 128/76 mmHg 133/71 mmHg mmHg] (12/02/17 1:50 AM) (12/02/17 12:26 AM) (12/01/17 10:15 PM) Respiratory Rate [14-20 25 BRMIN 25 BRMIN 26 BRMIN BRMIN] *HI* *HI* *HI* (12/02/17 1:50 AM) (12/02/17 12:26 AM) (12/01/17 11:00 PM) Peripheral Pulse Rate [60-100 116 bpm 114 bpm bpm] *HI* *HI* (12/01/17 7:57 PM) (12/01/17 7:02 PM) Weight 59.091 kg (12/01/17 7:02 PM) Body Mass Index 23.83 m2 (12/01/17 7:02 PM) Problem List Condition Effective Dates Status [...] Subarachnoid Active hemorrhage(Confirmed) Stroke(Confirmed) Active 1Clipped in 94948Pdcizzcb Aspirate - 06/17/201710024Pbjmajxc Aspirate - 201659612Mkycgb - 05/06/201770369Wshgpok added by Discern Expert.6Tracheal Aspirate - 73235Kixtdcaf Aspirate - 83691Qmqkqui added by Discern Expert. Allergies, Adverse Reactions, Alerts Substance Reaction Severity Status promethazine Active Phenergan Phenergan Active Medications Lactated Ringers (Bolus) IV 1,000 mL, 1,000 ml/hr, Infuse Over: 1 hr, Route: IV, 1,000, Drug form: INJ, ONCE , Priority: STAT, Dosing Weight 59.091 kg, Start date: 12/01/17 22:35:00 CDT, Stop date: 12/01/17 22:35:00 CDT Start Date: 12/01/17 Stop Date: 12/02/17 Status: Completednitrofurantoin macrocrystals 50 mg oral capsule (Macrodantin) 50 mg=1 cap, PO, QID, X 7 day, # 28 cap, 0 Refill(s) Start Date: 12/02/17 Stop Date: 12/09/17 Status: Completed Results ELECTROLYTES Most recent to oldest [Reference Range]: 1 Sodium Lvl [135-145 mEq/L] 141 mEq/L (12/01/17 9:03 PM) Potassium Lvl [3.5-5.1 mEq/L] 4.3 mEq/L (12/01/17 9:03 PM) Chloride Lvl [95-109 mEq/L] 103 mEq/L (12/01/17 9:03 PM) CO2 [24-32 mEq/L] 25 mEq/L (12/01/17 9:03 PM) AGAP [10.0-20.0 mEq/L] 17.3 mEq/L (12/01/17 9:03 PM) CHEM PANEL Most recent to oldest [Reference Range]: 1 Creatinine Lvl [0.50-1.40 mg/dL] 0.55 mg/dL (12/01/17 9:03 PM) eGFR 107 mL/min/1.73m2 1 *NA* (12/01/17 9:03 PM) BUN [7-22 mg/dL] 21 mg/dL (12/01/17 9:03 PM) Glucose Lvl [70-99 mg/dL] 152 mg/dL *HI* (12/01/17 9:03 PM) Calcium Lvl [8.5-10.5 mg/dL] 10.2 mg/dL (12/01/17 9:03 PM) 1Result Comment: The eGFR is calculated [...] oldest [Reference Range]: 1 UA Turbidity [Clear] Cloudy *ABN* (12/01/17 10:43 PM) UA Color [Yellow] Yellow *NA* (12/01/17 10:43 PM) UA pH [5.0-8.0] 8.0 (12/01/17 10:43 PM) UA Spec Grav [<=1.030] 1.015 (12/01/17 10:43 PM) UA Glucose [Negative] Negative (12/01/17 10:43 PM) UA Blood [Negative] Small *ABN* (12/01/17 10:43 PM) UA Ketones [Negative] Negative *NA* (12/01/17 10:43 PM) UA Protein [Negative] Negative (12/01/17 10:43 PM) UA Urobilinogen [0.1-1.0 EU/dL] 0.2 EU/dL (12/01/17 10:43 PM) UA Bili [Negative] Negative *NA* (12/01/17 10:43 PM) UA Leuk Est [Negative] Moderate *ABN* (12/01/17 10:43 PM) UA Nitrite [Negative] Negative (12/01/17 10:43 PM) UA WBC [None Seen /HPF] 11-20 /HPF *ABN* (12/01/17 10:43 PM) UA RBC [0-2 /HPF] 3-5 /HPF *ABN* (12/01/17 10:43 PM) UA Bacteria [None Seen /HPF] Moderate /HPF (12/01/17 10:43 PM) UA Sq Epi [Few /LPF] Many /LPF *ABN* (12/01/17 10:43 PM) UA Amorph Kaylynn [None Seen /HPF] Occasional /HPF *ABN* (12/01/17 10:43 PM) HEMATOLOGY Most recent to oldest [Reference Range]: 1 WBC [3.7-10.4 K/CMM] 9.7 K/CMM (12/01/17 9:03 PM) RBC [4.20-5.40 M/CMM] 4.67 M/CMM (12/01/17 9:03 PM) Hgb [12.0-16.0 g/dL] 14.1 g/dL (12/01/17 9:03 PM) Hct [36.0-48.0 %] 43.3 % (12/01/17 9: PM) MCV [80.0-98.0 fL] 92.8 fL (12/01/17 9: PM) MCH [27.0-31.0 pg] 30.2 pg (12/01/17: PM) MCHC [32.0-36.0 g/dL] 32.6 g/dL (12/01/17 9: PM) RDW [11.5-14.5 %] 15.4 % *HI* (12/01/17 9:03 PM) MPV [7.4-10.4 fL] 9.2 fL (12/01/17 9:03 PM) Platelet [133-450 K/CMM] 341 K/CMM (12/01/17 9:03 PM) Segs [45.0-75.0 %] 69.0 % (12/01/17 9:03 PM) Lymphocytes [20.0-40.0 %] 24.6 % (12/01/17 9:03 PM) Monocytes [2.0-12.0 %] 4.6 % (12/01/17 9:03 PM) Eosinophils [0.0-4.0 %] 1.1 % (12/01/17 9:03 PM) Basophils [0.0-1.0 %] 0.7 % (12/01/17 9: PM) Segs-Bands # [1.5-8.1 K/CMM] 6.7 K/CMM (12/01/17 9:03 PM) Lymphocytes # [1.0-5.5 K/CMM] 2.4 K/CMM (12/01/17 9:03 PM) Monocytes # [0.0-0.8 K/CMM] 0.4 K/CMM (12/01/17 9:03 PM) Eosinophils # [0.0-0.5 K/CMM] 0.1 K/CMM (12/01/17 9:03 PM) Basophils # [0.0-0.2 K/CMM] 0.1 K/CMM (12/01/17 9:03 PM) RBC Morph Normal (12/01/17 9:03 PM) Plt Morph Clumped 1 (12/01/17 9:03 PM) 1Result Comment: Due to occassional clumps, the actual count may be slightly higher.Microbiology Reports TEST:Culture: Urine STATUS:Auth (Verified) BODY SITE: SOURCE:Urine, Clean Catch COLLECTED DATE/TIME:12/02/17 12:13 AMFINAL REPORT50,000 - 100,000 CFU/mL Skin Caitlin Immunizations Given and Recorded Vaccine Date Status [...] Completed of thorax2 Tracheostomy Completed 1Several spinal pyryaovrbr6vrfn seperate procedures. the last one was more [...]
--- OUTSIDE RECORDS SUMMARY | 2019-01-05 19:44 | XMS REPORT | Summary of Care ---
:1965 Author Organization [facility] Neurosurgery [facility] Address [address] [place] [address] [address] [place] [address]- Encounter HQ Encntr_alies(FIN) [id number] Date(s): 12/21/18 - 12/22/18 [facility] [address] [place] [address] [place] [phone] Vital Signs No data available for this [...] Subarachnoid Active hemorrhage(Confirmed) Stroke(Confirmed) Active 1Clipped in 67192Cnnlwjei Aspirate - 06/17/201787442Japzuugr Aspirate - 201679832Mngaep - 05/06/201799644Azayjdy added by Discern Expert.6Trach aspirate (CRE), 07028Seloqehm Aspirate - 06/17/201713743Amgcumfu Aspirate - 05/22/201724454Hwcpqkx added by Discern Expert. Allergies, Adverse Reactions, [...] tissue of thorax2 Tracheostomy Completed 1Several spinal tshwhylxhe6jjrr seperate procedures. the last one was more [...]
--- OUTSIDE RECORDS SUMMARY | 2019-01-05 19:44 | XMS REPORT | Summary of Care ---
:1965 Author Organization [facility] Neurosurgery [facility] Address [address] [place] [address] [address] [place] [address]- Encounter HQ Juanr_johanna(FIN) [id number] Date(s): 12/21/18 - 12/21/18 [facility] [address] [place] [address] [place] [phone] Attending Physician: [facility] Referring Physician: Isa Santamaria MD Vital Signs No data available for [...] Subarachnoid Active hemorrhage(Confirmed) Stroke(Confirmed) Active 1Clipped in 88036Pacbsqyp Aspirate - 06/17/201756830Jewlrkdo Aspirate - 201612022Draupj - 05/06/201765642Vajvuxd added by Discern Expert.6Trach aspirate (CRE), 22608Xknmpjen Aspirate - 06/17/201782767Yduntuya Aspirate - 05/22/201743664Cnspbcy added by Discern Expert. Allergies, Adverse Reactions, [...] tissue of thorax2 Tracheostomy Completed 1Several spinal mipvpbrfkt6zxjb seperate procedures. the last one was more [...]
--- OUTSIDE RECORDS SUMMARY | 2019-01-05 19:44 | XMS REPORT | Summary of Care ---
:1965 Author Organization [facility] Neurosurgery [facility] Address [address] [facility], [address] [place] [address]- Encounter HQ Juanr_johanna(FIN) [id number] Date(s): 09/22/18 - 09/23/18 [facility] Neurosurgery [facility] [address] [facility], [address] [place] [address] [phone] Vital Signs No data available for this [...] Subarachnoid Active hemorrhage(Confirmed) Stroke(Confirmed) Active 1Clipped in 33385Cemrbmdp Aspirate - 06/17/201776838Alsuihtc Aspirate - 201696477Osfzpm - 05/06/201743292Bjizimn added by Discern Expert.6Tracheal Aspirate - 02139Ihiiyngx Aspirate - 05/22/201754035Qbmcclc added by Discern Expert. Allergies, Adverse Reactions, [...] tissue of thorax2 Tracheostomy Completed 1Several spinal xactuywyew2izrr seperate procedures. the last one was more [...] Tobacco Frequency quit january 2016; entered on: 06/28/18 1denies Exercise Assessment and Plan No data available for this section
--- OUTSIDE RECORDS SUMMARY | 2019-01-05 19:45 | XMS REPORT | Summary of Care ---
:1965 Author Organization [facility] Neurosurgery [facility] Address [address] [place] [address], [address] [place] [address]- Encounter HQ Juanr_johanna(FIN) [id number] Date(s): 10/17/18 - 10/18/18 [facility] [address] [place] [address], [address] [place] [phone] Vital Signs No data available for this [...] Subarachnoid Active hemorrhage(Confirmed) Stroke(Confirmed) Active 1Clipped in 33190Sehxiwfu Aspirate - 06/17/201759762Henonvio Aspirate - 201624004Eeofyr - 05/06/201742733Xtcptzk added by Discern Expert.6Trach aspirate (CRE), 89392Wkydqvyj Aspirate - 36613Xjkiynlb Aspirate - 05/22/201728829Aswwasf added by Discern Expert. Allergies, Adverse Reactions, [...] tissue of thorax2 Tracheostomy Completed 1Several spinal rqoucirwfs4smbx seperate procedures. the last one was more [...]
--- OUTSIDE RECORDS SUMMARY | 2019-01-05 19:45 | XMS REPORT | Summary of Care ---
:1965 Author Organization [facility] Address [address] [place], [place] [address]- Encounter HQ Encntr_alias(FIN) [id number] Date(s): 10/05/18 - 10/15/[address] Professional Services provided by The [facility] [place] [address]- Discharge Disposition: DC/DISC TO REHAB Attending Physician: Temo Hollis MD Admitting Physician: Mahamed Castellanos MD Vital Signs Most recent to oldest 1 2 3 [Reference Range]: Height 157.48 cm 157.48 cm (10/05/18 4:32 PM) (10/05/18 5:32 AM) Current Weight 58.005 kg (10/07/18 5:33 AM) Temperature Oral [96.4-99.1 97.6 DegF 98 DegF 98.1 DegF DegF] (10/15/18 10:58 AM) (10/15/18 9:00 AM) (10/15/18 4:01 AM) Blood Pressure [90-140/60-90 113/60 mmHg 109/65 mmHg 100/60 mmHg mmHg] (10/15/18 10:58 AM) (10/15/18 9:00 AM) (10/15/18 4:01 AM) Respiratory Rate [14-20 BRMIN] 18 BRMIN 18 BRMIN 16 BRMIN (10/15/18 10:58 AM) (10/15/18 9:00 AM) (10/15/18 4:01 AM) Peripheral Pulse Rate [60-100 76 bpm 84 bpm 70 bpm bpm] (10/15/18 10:58 AM) (10/15/18 9:00 AM) (10/15/18 4:01 AM) Weight 47.727 kg 47.727 kg (10/05/18 4:32 PM) (10/05/18 5:32 AM) Body Mass Index 19.24 m2 19.24 m2 (10/05/18 4:32 PM) (10/05/18 5:32 AM) Problem List Condition Effective Dates Status [...] Subarachnoid Active hemorrhage(Confirmed) Stroke(Confirmed) Active 1Clipped in 86100Iigbyydf Aspirate - 06/17/201705244Dkpvvznz Aspirate - [id number] - 05/06/201787254Thupezu added by Discern Expert.6Trach aspirate (CRE), 01596Mhbtnfwh Aspirate - 06/17/201739121Pwpllpfl Aspirate - 05/22/201724225Tqudmcz added by Discern Expert. Allergies, Adverse Reactions, Alerts Substance Reaction Severity Status promethazine Active Phenergan Phenergan Active Medications acetaminophen 650 mg, 2 tab, Route: PO, Drug form: TAB, Q4H, Dosing Weight 47.727, kg, PRN Pain 1-3/Temp > 100.4 F, Start date: 10/05/18 15:15:00 [employer], Duration: 30 day , Stop date: 11/04/18 15:14:00 [employer] Notes: Do not exceed 4 gm/day. (Same as: Tylenol) Start Date: 10/05/18 Stop Date: 10/15/18 Status: Discontinuedacetaminophen 650 mg, 20.3 mL, Route: PO, Drug form: LIQ, Q4H, Dosing Weight 47.727, kg, PRN Pain 1-3/Temp > 100.4 F, Start date: 10/06/18 11:43:00 [employer], Duration: 30 day , Stop date: 11/05/18 11:42:00 [employer] Notes: Max idwwhrqirlyxk=7834fs/day (4 gm/day). (Same as: Tylenol) Start Date: 10/06/18 Stop Date: 10/15/18 Status: Discontinuedacetaminophen (ANES) 10 mg Route: IV, Drug form: INJ, Start date: 10/06/18 10:43:00 [employer], Stop date: 11:43:00 [employer] Start Date: 10/06/18 Stop Date: 10/06/18 Status: Completedacetaminophen 325 mg oral tablet 650 mg=2 tab, PO, Q4H, PRN Pain 1-3/Temp > 100.4 F, 0 Refill(s) Start Date: 10/10/18 Stop Date: 10/15/18 Status: Discontinuedacetaminophen-hydrocodone 325 mg-5 mg oral tablet 1 tab, Route: PO, Drug Form: TAB, Dosing Weight 47.727, kg, Q4H, PRN Pain Score 1-3, Start date: 10/05/18 15:15:00 [employer], Duration: 30 day, Stop date: 11/04/18 15 :14:00 [employer] Notes: (Same as: [place] 325/5) Do not exceed 4gm/day of acetaminophen. Start Date: 10/05/18 Stop Date: 10/06/18 Status: DiscontinuedAncef 2 gm, Route: IVPB, ONCE, Dosing Weight 47.727, kg, Start date: 10/05/18 15:33: 00 [employer], Stop date: 10/05/18 15:33:00 [employer], Surgical Prophylaxis Only; For patients < 120 kg, ABX Indication: Surgical Prophylaxis Start Date: 10/05/18 Stop Date: 10/05/18 Status: CompletedANES fentaNYL 25 microgram, Route: IVP, Q5Min, Dosing Weight 47.727, kg, PRN Pain Score 4-6, Priority: Routine, Start date: 10/06/18 10:56:00 [employer], Duration: 4 doses or times , Stop date: Limited # of times Start Date: 10/06/18 Stop Date: 10/06/18 Status: DiscontinuedANES flumazenil 0.2 mg, Route: IVP, PRN, Dosing Weight 47.727, kg, PRN Benzodiazepine Reversal, Initial dose, Start date: 10/06/18 10:56:00 [employer], Duration: 30 day, Stop date: 10:55:00 [employer] Start Date: 10/06/18 Stop Date: 10/06/18 Status: DiscontinuedANES hydrALAZINE 10 mg, Route: IVP, Q20Min, Dosing Weight 47.727, kg, PRN Elevated BP, Start date : 10/06/18 10:56:00 [employer], Duration: 2 doses or times, Stop date: Limited # of times Start Date: 10/06/18 Stop Date: 10/06/18 Status: DiscontinuedANES HYDROmorphone 0.2 mg, Route: IVP, Q5Min, Dosing Weight 47.727, kg, PRN Pain Score 7-10, Start date: 10/06/18 10:56:00 [employer], Duration: 4 doses or times, Stop date: Limited # of times Start Date: 10/06/18 Stop Date: 10/06/18 Status: DiscontinuedANES naloxone 0.4 mg, Route: IVP, Q2MIN, Dosing Weight 47.727, kg, PRN Narcotic Reversal, Start date: 10/06/18 10:56:00 [employer], Duration: 8 doses or times, Stop date: Limited # of times Start Date: 10/06/18 Stop Date: 10/06/18 Status: DiscontinuedANES ondansetron 4 mg, Route: IVP, ONCE, Dosing Weight 47.727, kg, PRN Nausea & Vomiting, Start date: 10/06/18 10:56:00 [employer] Start Date: 10/06/18 Stop Date: 10/06/18 Status: Completedatorvastatin 40 mg, 1 tab, Route: PO, Drug form: TAB, Bedtime, Dosing Weight 47.727, kg, Start date: 10/06/18 21:00:00 [employer], Duration: 30 day, Stop date: 11/04/18 21:00: 00 [employer] Notes: (Same as: Lipitor) Start Date: 10/06/18 Stop Date: 10/15/18 Status: Discontinuedatorvastatin 40 mg oral tablet 40 mg=1 tab, PO, Bedtime, 0 Refill(s) Start Date: 10/15/18 Status: Suspendedbisacodyl 10 mg, 1 supp, Route: CT, Drug form: SUPP, Daily, Dosing Weight 47.727, kg, PRN Constipation, Start date: 10/06/18 11:43:00 [employer], Duration: 30 day, Stop date: 11:42:00 [employer] Notes: (Same As: Dulcolax, Bisco-Lax) Start Date: 10/06/18 Stop Date: 10/15/18 Status: Discontinuedcalcium carbonate 500 mg (200 mg elemental calcium) oral tablet 1,000 mg, 2 tab, Route: PO, Drug form: CHEWTAB, PRN, Dosing Weight 47.727, kg, PRN Abnormal Lab Result, FOR ICU USE ONLY, Start date: 10/05/18 16:39:00 [employer], Duration: 30 day, Stop date: 11/04/18 16:38:00 [employer] Notes: (Same As: Tums)Calcium Carbonate 500 oj=786 mg elemental calcium Dose=_ mg calcium carbonate ( mg elemental calcium) Start Date: 10/05/18 Stop Date: 10/07/18 Status: Discontinuedcalcium carbonate 500 mg (200 mg elemental calcium) oral tablet 500 mg, 1 tab, Route: PO, Drug form: CHEWTAB, PRN, Dosing Weight 47.727, kg, PRN Abnormal Lab Result, FOR ICU USE ONLY, Start date: 10/05/18 16:39:00 [employer], Duration: 30 day, Stop date: 11/04/18 16:38:00CST Notes: (Same As: Tums)Calcium Carbonate 500 uk=885 mg elemental calcium Dose=_ mg calcium carbonate ( mg elemental calcium) Start Date: 10/05/18 Stop Date: 10/07/18 Status: Discontinuedcalcium gluconate + Sodium Chloride 0.9% IV 40 mL 1 gm, 10 mL, Route: IVPB, PRN, Dosing Weight 47.727, kg, PRN Abnormal Lab Result , Start date: 10/05/18 16:39:00 [employer], Duration: 30 day, Stop date: 11/04/18 16:38 :00 [employer], FOR ICU USE ONLY Notes: WASTE: F/P - Sink; E - Municipal Trash Bin Start Date: 10/05/18 Stop Date: 10/07/18 Status: Discontinuedcefepime 2 gm, Route: IVP, Drug form: INJ, [id number], Dosing Weight 47.727, kg, (CrCl 30 - 49 ml/min, PEDIATRIC LPN infection or neutropenic fever), Start date: 10/06/18 11:00:00 [employer], Duration: 10 day, Stop date: 10/15/18 23:00:00 [employer], ABX Indication: PEDIATRIC LPN Infection/Epidur... Notes: (Same as: Maxipime) MEDICATION WASTE Product Size: 2000 mgProduct Wasted: ___ mg Start Date: 10/06/18 Stop Date: 10/09/18 Status: Discontinuedcefepime (ANES) 1000 mg Route: IV, Drug form: INJ, Start date: 10/06/18 10:16:00 [employer], Stop date: 11:16:00 [employer] Start Date: 10/06/18 Stop Date: 10/06/18 Status: CompletedChloraseptic 1.4% spray 1 spray, Route: TOP, Daily, Drug form: SPRY, PRN Sore Throat, Start date: 11:43:00 [employer], Duration: 30 day, Stop date: 11/05/18 11:42:00 [employer] Notes: Chloraseptic Felt(Same as: Chloraseptic, Sore Throat Felt)WASTE: F/P - Black; E - MunicipalTrash Bin Start Date: 10/06/18 Stop Date: 10/15/18 Status: DiscontinuedCubicin 1,000 mg, Route: MISC, Drug form: INJ, ONCE, Start date: 10/06/18 11:11:00 [employer], Stop date: 10/06/18 11:11:00 [employer], ABX Indication: Other (specify in Comments) Notes: (Same As: Bakari)Restricted use to Infectious Disease Physicians.For adult patients only: Round to nearest 50 mg per Medical Staff approval MEDICATION WASTE Product Size: 500 mgProductWasted: ___ mg Start Date: 10/06/18 Stop Date: 10/06/18 Status: OrderedDAPTOmycin 1,000 mg, Route: INTRALESION, ONCE, Dosing Weight 47.727, kg, Start date: 10:26:00 [employer], Stop date: 10/06/18 10:26:00 [employer], ABX Indication: Bone/Joint Infection Start Date: 10/06/18 Stop Date: 10/06/18 Status: Discontinueddexamethasone (ANES) Route: IV, Drug form: INJ, ONCE, Stop date: 10/06/18 10:12:00 [employer] Start Date: 10/06/18 Stop Date: 10/06/18 Status: CompletedDextrose 50% Syringe 25 gm, 50 mL, Route: IVP, Drug Form: INJ, Dosing Weight 47.727, kg, PRN, PRN Blood Glucose Results, Start date: 10/05/18 16:39:00 [employer], Duration: 30 day, Stop date: 11/04/18 16:38:00 [employer] Start Date: 10/05/18 Stop Date: 10/15/18 Status: DiscontinuedDextrose 50% Syringe 12.5 gm, 25 mL, Route: IVP, Drug Form: INJ, Dosing Weight 47.727, kg, PRN, PRN Blood Glucose Results, Start date: 10/05/18 16:39:00 [employer], Duration: 30 day, Stop date: 11/04/18 16:38:00 [employer] Start Date: 10/05/18 Stop Date: 10/15/18 Status: DiscontinuedDilaudid 0.5 mg, 0.25 mL, Route: IVP, Drug form: INJ, Q3H, Dosing Weight 47.727, kg, PRN Pain Score 7-10, Start date: 10/06/18 11:43:00 [employer], Duration: 1 day, Stop date: 10/07/18 11:42:00 [employer] Notes: Same as Dilaudid Start Date: 10/06/18 Stop Date: 10/07/18 Status: Completeddocusate 100 mg, 1 cap, Route: PO, Drug form: CAP, Q12H, Dosing Weight 47.727, kg, Start date: 10/05/18 21:00:00 [employer], Duration: 30 day, Stop date: 11/04/18 9:00:00 [employer] Notes: (Same as: Colace) (Do Not Crush) Start Date: 10/05/18 Stop Date: 10/10/18 Status: Voided With Resultsdocusate 100 mg, 1 cap, Route: PO, Drug form: CAP, Q12H, Dosing Weight 47.727, kg, Start date: 10/06/18 21:00:00 [employer], Duration: 30 day, Stop date: 11/05/18 9:00:00 [employer] Notes: (Same as: Colace) (Do Not Crush) Start Date: 10/06/18 Stop Date: 10/15/18 Status: DiscontinuedDuoNeb inhalation solution 3 ml, Route: NEB, Drug Form: SOLN, Dosing Weight 47.727, kg, PRN, PRN Respiratory Pathway, Start date: 10/09/18 10:23:00 [employer], Duration: 30 day, Stop date: 11/08/18 10:22:00 [employer] Notes: (Same as: Duoneb) Start Date: 10/09/18 Stop Date: 10/15/18 Status: Discontinuedeszopiclone 1 mg, Route: PO, Drug form: TAB, Bedtime, Dosing Weight 47.727, kg, PRN Insomnia , Start date: 10/14/18 23:19:00 [employer], Duration: 30 day, Stop date: 11/13/18 23:18 :00 CDT Start Date: 10/14/18 Stop Date: 10/14/18 Status: DeletedfentaNYL (ANES) Route: IV, Drug form: INJ, ONCE, Stop date: 10/06/18 10:02:00 [employer] Start Date: 10/06/18 Stop Date: 10/06/18 Status: CompletedFlagyl 500 mg, 100 mL, Route: IVPB, Drug form: INJ, ABXQ6H, Dosing Weight 47.727, kg, Start date: 10/06/18 11:00:00 [employer], Duration: 7 day, Stop date: 10/13/18 5:00:00 [employer], ABX Indication: PEDIATRIC LPN Infection/Epidural Abcess Notes: (Same as: Flagyl) Avoid alcohol. Start Date: 10/06/18 Stop Date: 10/10/18 Status: DiscontinuedFLUoxetine 20 mg, 1 cap, Route: PEG, Drug form: CAP, Bedtime, Dosing Weight 47.727, kg, Priority: NOW, Start date: 10/14/18 23:59:00 [employer], Duration: 30 day, Stop date: 11/13/18 21:00:00 CDT Notes: (Same as: Maximilian Johnson) Start Date: 10/14/18 Stop Date: 10/15/18 Status: DiscontinuedFLUoxetine 20 mg, 1 cap, Route: PEG, Drug form: CAP, Daily, Dosing Weight 47.727, kg, Priority: NOW, Start date: 10/14/18 23:56:00 [employer], Duration: 30 day, Stop date: 11/13/18 9:00:00 CDT Notes: (Same as: Ermias Johnsonm) Start Date: 10/14/18 Stop Date: 10/14/18 Status: DiscontinuedFLUoxetine 20 mg oral capsule 20 mg=1 cap, PEG, Bedtime, 0 Refill(s) Start Date: 10/15/18 Status: Suspendedglucagon 1 mg, Route: IM, Drug form: PDR/INJ, PRN, Dosing Weight 47.727, kg, PRN Blood Glucose Results, Startdate: 10/05/18 16:39:00 [employer], Duration: 30 day, Stop date: 11/04/18 16:38:00 [employer] Start Date: 10/05/18 Stop Date: 10/15/18 Status: Discontinuedglycopyrrolate (ANES) Route: IV, Drug form: INJ, ONCE, Stop date: 10/06/18 12:13:00 [employer] Start Date: 10/06/18 Stop Date: 10/06/18 Status: Completedheparin 5000 units/mL injectable solution 5,000 unit, 1 mL, Route: SUB-Q, Drug form: INJ, Q8H, Dosing Weight 47.727, kg, Start date: 10/07/18 16:00:00 [employer], Duration: 30 day, Stop date: 11/06/18 8:00: 00 [employer] Notes: porcine heparin Start Date: 10/07/18 Stop Date: 10/15/18 Status: DiscontinuedhydrALAZINE 20 mg, 1 mL, Route: IVP, Drug form: INJ, Q4H, Dosing Weight 47.727, kg, PRN Hypertension, Start date: 10/06/18 11:43:00 [employer], Duration: 30 day, Stop date: 11:42:00 [employer] Notes: (Same as: Apresoline)Push over 5 minutes Start Date: 10/06/18 Stop Date: 10/15/18 Status: DiscontinuedInsulin regular 8 unit, 0.08 mL, Route: SUB-Q, Drug form: SOLN, Sliding Scale, Dosing Weight 47.727, kg, PRN Blood Glucose Results, Start date: 10/05/18 16:39:00 [employer], Duration: 30 day, Stop date: 11/04/18 16:38:00 [employer] Notes: (Same as: Humulin R) Roll in palms of hands gently; Do not shake vigorously. "single patientuse only"(Restricted to patients requiring a dose &gt ; 60 units)WASTE: F/P - Black; E - Municipal Trash Bin Stable for 28 days at room temperatureExpires in days from Date Start Date: 10/05/18 Stop Date: 10/15/18 Status: DiscontinuedInsulin regular 10 unit, 0.1 mL, Route: SUB-Q, Drug form: SOLN, Sliding Scale, Dosing Weight 47.727, kg, PRN Blood Glucose Results, Start date: 10/05/18 16:39:00 [employer], Duration: 30 day, Stop date: 11/04/18 16:38:00 [employer] Notes: (Same as: Humulin R) Roll in palms of hands gently; Do not shake vigorously. "single patientuse only"(Restricted to patients requiring a dose &gt ; 60 units)WASTE: F/P - Black; E - Municipal Trash Bin Stable for 28 days at room temperatureExpires in days from Date Start Date: 10/05/18 Stop Date: 10/15/18 Status: DiscontinuedInsulin regular 6 unit, 0.06 mL, Route: SUB-Q, Drug form: SOLN, Sliding Scale, Dosing Weight 47.727, kg, PRN Blood Glucose Results, Start date: 10/05/18 16:39:00 [employer], Duration: 30 day, Stop date: 11/04/18 16:38:00 [employer] Notes: (Same as: Humulin R) Roll in palms of hands gently; Do not shake vigorously. "single patientuse only"(Restricted to patients requiring a dose &gt ; 60 units)WASTE: F/P - Black; E - Municipal Trash Bin Stable for 28 days at room temperatureExpires in days from Date Start Date: 10/05/18 Stop Date: 10/15/18 Status: DiscontinuedInsulin regular 4 unit, 0.04 mL, Route: SUB-Q, Drug form: SOLN, Sliding Scale, Dosing Weight 47.727, kg, PRN Blood Glucose Results, Start date: 10/05/18 16:39:00 [employer], Duration: 30 day, Stop date: 11/04/18 16:38:00 [employer] Notes: (Same as: Humulin R) Roll in palms of hands gently; Do not shake vigorously. "single patientuse only"(Restricted to patients requiring a dose &gt ; 60 units)WASTE: F/P - Black; E - Municipal Trash Bin Stable for 28 days at room temperatureExpires in days from Date Start Date: 10/05/18 Stop Date: 10/15/18 Status: DiscontinuedInsulin regular 2 unit, 0.02 mL, Route: SUB-Q, Drug form: SOLN, Sliding Scale, Dosing Weight 47.727, kg, PRN Blood Glucose Results, Start date: 10/05/18 16:39:00 [employer], Duration: 30 day, Stop date: 11/04/18 16:38:00 [employer] Notes: (Same as: Humulin R) Roll in palms of hands gently; Do not shake vigorously. "single patientuse only"(Restricted to patients requiring a dose &gt ; 60 units)WASTE: F/P - Black; E - Municipal Trash Bin Stable for 28 days at room temperatureExpires in days from Date Start Date: 10/05/18 Stop Date: 10/15/18 Status: Discontinuedlabetalol 10 mg, 2 mL, Route: IVP, Drug form: INJ, Q15Min, Dosing Weight 47.727, kg, PRN Hypertension, Start date: 10/06/18 11:43:00 [employer], Duration: 3 doses or times, Stop date: Limited # of times Start Date: 10/06/18 Stop Date: 10/15/18 Status: DiscontinuedLactated Ringers Injection IV (ANES) 1000 mL Route: IV, Total Volume: 1,000, Start date: 10/06/18 7:35:00 [employer], Stop date: 09/23 8:35:00 [employer] Start Date: 10/06/18 Stop Date: 10/06/18 Status: CompletedlevETIRAcetam 750 mg, 3 tab, Route: PO, Drug form: TAB, Q12H, Dosing Weight 47.727, kg, Start date: 10/05/18 21:00:00 [employer], Duration: 30 day, Stop date: 11/04/18 9:00:00 [employer] Notes: (Same as:Keppra) Start Date: 10/05/18 Stop Date: 10/15/18 Status: DiscontinuedlevETIRAcetam 250 mg oral tablet 750 mg=3 tab, PO, Q12H, 0 Refill(s) Start Date: 10/15/18 Status: Suspendedlevothyroxine 88 microgram, 1 tab, Route: PO, Drug form: TAB, Q630AM, Dosing Weight 47.727, kg , Start date: 10/07/18 6:30:00 [employer], Duration: 30 day, Stop date: 11/05/18 6:30: 00 [employer] Notes: Take 1 hour before or 2 hours after meal; Enteral feeds may interefere with the absorption ofthis medication. (Same as:Synthroid) Start Date: 10/07/18 Stop Date: 10/15/18 Status: Discontinuedlevothyroxine 88 mcg (0.088 mg) oral tablet 88 microgram=1 tab, PO, Q630AM, 0 Refill(s) Start Date: 10/15/18 Status: Suspendedlidocaine (ANES) Route: IV, Drug form: INJ, ONCE, Stop date: 10/06/18 10:11:00 [employer] Start Date: 10/06/18 Stop Date: 10/06/18 Status: Completedlidocaine 1% 5 mL, Route: INTRADERM, Drug Form: INJ, Dosing Weight 47.727, kg, ONCALL, For PICC line insertion., Start date: 10/06/18 9:00:00 [employer], Duration: 1 doses or times Notes: Preservative free. (Same as: Xylocaine MPF) Start Date: 10/06/18 Stop Date: 10/15/18 Status: Discontinuedlidocaine topical patch (5% film) 1 patch, TOP, Daily, # 30 patch, 0 Refill(s) Start Date: 10/10/18 Status: Suspendedlidocaine topical patch (5% film) 1 patch, Route: TOP, Daily, Drug form: FILM, Start date: 10/07/18 9:00:00 [employer], Duration: 30 day, Stop date: 11/05/18 9:00:00 [employer] Notes: Apply only once for up to 12 hours in i76-hizr period (12 hours on and 12 hours off).(Same as: Lidoderm)"Remove old patch before application of new patch" Start Date: 10/07/18 Stop Date: 10/15/18 Status: DiscontinuedMaalox Advanced Regular Strength SUSP 30 mL, Route: PO, Drug Form: SUSP, Dosing Weight 47.727, kg, QID, PRN Indigestion, Start date: 10/11/18 8:49:00 [employer], Duration: 30 day, Stop date: 04/23 8:48:00 [employer] Start Date: 10/11/18 Stop Date: 10/15/18 Status: Discontinuedmagnesium oxide 800 mg, 2 tab, Route: PO, Drug form: TAB, PRN, Dosing Weight 47.727, kg, PRN Abnormal Lab Result, FOR ICU USE ONLY, Start date: 10/05/18 16:39:00 [employer], Duration: 30 day, Stop date: 11/04/18 16:38:00 [employer] Notes: (Same as: Mag-Ox 400)Magnesium oxide [id number] elemental magnesiumDose= ____mg magnesium oxide (___mg elemental magnesium) Start Date: 10/05/18 Stop Date: 10/07/18 Status: Discontinuedmagnesium sulfate 2 gm, 50 mL, Route: IVPB, Drug form: INJ, PRN, Dosing Weight 47.727, kg, PRN Abnormal Lab Result, Start date: 10/05/18 16:39:00 [employer], Duration: 30 day, Stop date: 11/04/18 16:38:00 [employer], FOR ICU USE ONLY Notes: WASTE: F/P - Sink; E - Municipal Trash Bin Start Date: 10/05/18 Stop Date: 10/07/18 Status: Discontinuedmelatonin 3 mg oral tablet 6 mg, 2 tab, Route: PO, Drug Form: TAB, Dosing Weight 47.727, kg, Bedtime, PRN as needed for insomnia, Start date: 10/14/18 23:58:00 [employer], Duration: 30 day, Stop date: 11/13/18 23:57:00 CDT Notes: (Same as: Melatonin) Start Date: 10/14/18 Stop Date: 10/15/18 Status: Discontinuedmeropenem 1,000 mg, Route: INTRALESION, Drug form: PDR/INJ, ONCE, Dosing Weight 47.727, kg , CrCl >50, Extended infusion, infuse over 3 hours, Start date: 10/06/18 10: 26:00 [employer], Stop date: 10/06/18 10:26:00 [employer], ABX Indication: PEDIATRIC LPN Infection/ Epidural Abcess Notes: (Same as: Merrem) . MEDICATION WASTE Product Size: 1000 mgProduct Wasted: ___ mg Start Date: 10/06/18 Stop Date: 10/09/18 Status: Discontinuedmetoprolol 10 mg/ml cmpd oral suspension PO, Q12H, 0 Refill(s) Start Date: 10/15/18 Status: Suspendedmetoprolol tartrate 6.25 mg, 0.63 mL, Route: PO, Drug form: LIQ, Q12H, Dosing Weight 47.727, kg, Start date: 10/06/18 21:00:00 [employer], Duration: 30 day, Stop date: 11/05/18 9:00: 00 [employer] Notes: (Same as: Lopressor) For oral use only. Refrigerate. Shake well. Compounded Product - formulation not commercially available Start Date: 10/06/18 Stop Date: 10/15/18 Status: DiscontinuedmetroNIDAZOLE (ANES) 5 mg Route: IV, Drug form: INJ, Start date: 10/06/18 10:09:00 [employer], Stop date: 11:09:00 [employer] Start Date: 10/06/18 Stop Date: 10/06/18 Status: Completedmorphine Sulfate 1 mg, 0.25 mL, Route: IVP, Drug form: SOLN, Q1H, Dosing Weight 47.727, kg, PRN Pain Score 7-10, Start date: 10/05/18 15:15:00 [employer], Duration: 30 day, Stop date : 11/04/18 15:14:00 [employer] Notes: (Same as:MORPhine Sulfate) Start Date: 10/05/18 Stop Date: 10/06/18 Status: Discontinuedmultivitamin 1 tab, Route: PO, Drug Form: TAB, Dosing Weight 47.727, kg, Daily, Start date: 10/15/18 9:00:00 [employer],Duration: 30 day, Stop date: 11/13/18 9:00:00 CDT Notes: (Same as:Thera)WASTE: F/P - Black; E - Municipal Trash Bin Take with food. Start Date: 10/15/18 Stop Date: 10/15/18 Status: Discontinuedneostigmine (ANES) Route: IV, Drug form: INJ, ONCE, Stop date: 10/06/18 12:13:00 [employer] Start Date: 10/06/18 Stop Date: 10/06/18 Status: Completednormal saline 0.9% IV 1,000 mL 1,000 mL, Rate: 50 ml/hr, Infuse over: 20 hr, Route: IV, Dosing Weight 47.727 kg , Total Volume: 1,000, Start date: 10/06/18 0:01:00 [employer], Duration: 30 day, Stop date: 11/05/18 0:00:00 [employer], 1.46, m2 Start Date: 10/06/18 Stop Date: 10/07/18 Status: Discontinuedondansetron 4 mg, 2 mL, Route: IVP, Drug form: INJ, Q8H, Dosing Weight 47.727, kg, PRN Nausea & Vomiting, Start date: 10/05/18 15:15:00 [employer], Duration: 30 day, Stop date: 11/04/18 15:14:00 [employer] Notes: (Same as: Daniel) MEDICATION WASTE Product Size: 4 mgProduct Wasted: _0__ mg Start Date: 10/05/18 Stop Date: 10/15/18 Status: Discontinuedondansetron 4 mg, 2 mL, Route: IVP, Drug form: INJ, Q8H, Dosing Weight 47.727, kg, PRN Nausea & Vomiting, Start date: 10/06/18 11:43:00 [employer], Duration: 30 day, Stop date: 11/05/18 11:42:00 [employer] Notes: (Same as: Daniel) MEDICATION WASTE Product Size: 4 mgProduct Wasted: ___ mg Start Date: 10/06/18 Stop Date: 10/15/18 Status: Discontinuedondansetron (ANES) Route: IV, Drug form: INJ, ONCE, Stop date: 10/06/18 11:27:00 [employer] Start Date: 10/06/18 Stop Date: 10/06/18 Status: Completedphenylephrine (ANES) Route: IV, Drug form: INJ, ONCE, Stop date: 10/06/18 10:12:00 [employer] Start Date: 10/06/18 Stop Date: 10/06/18 Status: Completedpneumococcal 13-valent vaccine 0.5 mL, Route: IM, Drug Form: INJ, ONCALL, Start date: 10/05/18 16:46:11 [employer], Stop date: 11/04/18 16:41:11 [employer] Notes: Shake well prior to use (Same as: Prevevert 13) Start Date: 10/05/18 Stop Date: 10/05/18 Status: Canceledpotassium chloride 20 mEq, 100 mL, Route: IVPB, Drug form: INJ, ONCE, Start date: 10/14/18 8:16:00 [employer], Stop date: 10/14/18 8:16:00 [employer] Start Date: 10/14/18 Stop Date: 10/14/18 Status: Completedpotassium chloride 20 mEq, 15 mL, Route: NJ, Drug form: LIQ, PRN, Dosing Weight 47.727, kg, PRN Abnormal Lab Result, Start date: 10/05/18 16:39:00 [employer], Duration: 30 day, Stop date: 11/04/18 16:38:00 [employer], FOR ICU USE ONLY Notes: (Same as: Potassium Chloride) Start Date: 10/05/18 Stop Date: 10/07/18 Status: Discontinuedpotassium chloride 20 mEq, 1 tab, Route: PO, Drug form: ERTAB, PRN, Dosing Weight 47.727, kg, PRN Abnormal Lab Result, Start date: 10/05/18 16:39:00 [employer], Duration: 30 day, Stop date: 11/04/18 16:38:00 [employer], FOR ICU USE ONLY Notes: (Same as: K-Dur 20)"Do Not Crush" Give with food and full glass of waterFor patients unable to swallow tablet, dissolve in one half glass of water. Allow about 2 minutes for the tablets to disintegrate. Stir before giving to prepare slurry and administer.Please exclude Patients with feedingtube less than 14 [place] (Dobhoff, J-tube etc) and pediatric and patients. Start Date: 10/05/18 Stop Date: 10/07/18 Status: Discontinuedpotassium chloride 20 mEq, 100 mL, Route: IVPB, Drug form: INJ, PRN, Dosing Weight 47.727, kg, PRN Abnormal Lab Result,Via central line, Start date: 10/05/18 16:39:00 [employer], Duration: 30 day, Stop date: 11/04/18 16:38:00 [employer], FOR ICU USE ONLY Notes: (Same as: KCL) Infuse no faster than 10 mEq/hr if given peripherally. Start Date: 10/05/18 Stop Date: 10/07/18 Status: Discontinuedpotassium chloride 10 mEq, 50 mL, Route: IVPB, Drug form: INJ, PRN, Dosing Weight 47.727, kg, PRN Abnormal Lab Result, Via peripheral line, Start date: 10/05/18 16:39:00 [employer], Duration: 30 day, Stop date: 11/04/18 16:38:00 [employer], FOR ICU USE ONLY Notes: (Same as: KCL) Infuse over 2 hours. Start Date: 10/05/18 Stop Date: 10/07/18 Status: Discontinuedpotassium chloride 10 mEq, Route: IVPB, Q1H, Dosing Weight 47.727, kg, Total Dose=20 meq, Start date: 10/14/18 7:00:00 [employer], Duration: 2 doses or times, Stop date: 10/14/18 8:00 :00 [employer], Peripheral Line Start Date: 10/14/18 Stop Date: 10/14/18 Status: Deletedpotassium chloride 20 mEq oral tablet, extended release 40 mEq=2 tab, PO, Daily, 0 Refill(s) Start Date: 10/15/18 Status: Suspendedpotassium chloride 20 mEq oral tablet, extended release 40 mEq, 2 tab, Route: PO, Drug form: ERTAB, Daily, Dosing Weight 47.727, kg, Start date: 10/14/18 9:00:00 [employer], Duration: 30 day, Stop date: 11/12/18 9:00:00 CDT Start Date: 10/14/18 Stop Date: 10/15/18 Status: Discontinuedpotassium phosphate + Sodium Chloride 0.9% IV 250 mL 45 mmol, 15 mL, Route: IVPB, PRN, Dosing Weight 47.727, kg, PRN Abnormal Lab Result, Start date: 10/05/18 16:39:00 [employer], Duration: 30 day, Stop date: 16:38:00 [employer], FOR ICU USE ONLY Notes: (Same as: K Phosphate.)Do not infuse phosphorous concurrently in the same line as TPN or IVF that contains calcium. For double lumen central lines, phosphorous may be infused in a separate lumenfrom TPN. 1 mMol phoshate has 1.47 mEq potassium Infuse over 4 hours Start Date: 10/05/18 Stop Date: 10/07/18 Status: Discontinuedpotassium phosphate + Sodium Chloride 0.9% IV 250 mL 30 mmol, 10 mL, Route: IVPB, PRN, Dosing Weight 47.727, kg, PRN Abnormal Lab Result, Start date: 10/05/18 16:39:00 [employer], Duration: 30 day, Stop date: 16:38:00 [employer], FOR ICU USE ONLY Notes: (Same as: K Phosphate.)Do not infuse phosphorous concurrently in the same line as TPN or IVF that contains calcium. For double lumen central lines, phosphorous may be infused in a separate lumenfrom TPN. 1 mMol phoshate has 1.47 mEq potassium Infuse over 4 hours Start Date: 10/05/18 Stop Date: 10/07/18 Status: Discontinuedpotassium phosphate + Sodium Chloride 0.9% IV 250 mL 15 mmol, 5 mL, Route: IVPB, PRN, Dosing Weight 47.727, kg, PRN Abnormal Lab Result, Start date: 10/05/18 16:39:00 [employer], Duration: 30 day, Stop date: 16:38:00 [employer], FOR ICU USE ONLY Notes: (Same as: K Phosphate.)Do not infuse phosphorous concurrently in the same line as TPN or IVF that contains calcium. For double lumen central lines, phosphorous may be infused in a separate lumenfrom TPN. 1 mMol phoshate has 1.47 mEq potassium Infuse over 4 hours Start Date: 10/05/18 Stop Date: 10/07/18 Status: Discontinuedpotassium phosphate-sodium phosphate 250 mg-280 mg-160 mg oral powder for reconstitution 2 pkt, Route: PO, Drug Form: PDR/REC, Dosing Weight 47.727, kg, PRN, PRN Abnormal Lab Result, FOR ICU USE ONLY, Start date: 10/05/18 16:39:00 [employer], Duration: 30 day, Stop date: 11/04/18 16:38:00 [employer] Notes: (Same as: Phos-NaK) Each 1.5 gm pkt has 250mg phosphorous. Mix w/2.5oz water and stir. Start Date: 10/05/18 Stop Date: 10/07/18 Status: Discontinuedpropofol (ANES) Route: IV, Drug form: INJ, ONCE, Stop date: 10/06/18 10:11:00 [employer] Start Date: 10/06/18 Stop Date: 10/06/18 Status: Completedpropofol (ANES) 10 mg Route: IV, Drug form: INJ, Start date: 10/06/18 8:55:00 [employer], Stop date: 9:55:00 [employer] Start Date: 10/06/18 Stop Date: 10/06/18 Status: CompletedReglan 10 mg, 2 mL, Route: IVP, Drug form: INJ, Q6H, Dosing Weight 47.727, kg, PRN Nausea & Vomiting, Start date: 10/06/18 11:43:00 [employer], Duration: 30 day, Stop date: 11/05/18 11:42:00 [employer] Notes: (Same as: Reglan) Start Date: 10/06/18 Stop Date: 10/15/18 Status: Discontinuedremove patch 1 patch, Route: TOP, Bedtime, Drug form: ERFILM, Start date: 10/07/18 21:00:00 [employer], Duration: 30 day, Stop date: 11/05/18 21:00:00 [employer] Notes: Remove patch 12 hours after application each day. Start Date: 10/07/18 Stop Date: 10/15/18 Status: Discontinuedrocuronium (ANES) Route: IV, Drug form: INJ, ONCE, Stop date: 10/06/18 10:12:00 [employer] Start Date: 10/06/18 Stop Date: 10/06/18 Status: CompletedSaline Flush 0.9% 10 mL, Route: IVP, Drug Form: INJ, Dosing Weight 47.727, kg, PRN, PRN Line Flush , Start date: 10/06/18 17:21:00 [employer], Duration: 30 day, Stop date: 11/05/18 17:20 :00 [employer] Notes: (Same as: BD Posiflush) Start Date: 10/06/18 Stop Date: 10/07/18 Status: DeletedSaline Flush 0.9% 10 mL, Route: IVP, Drug Form: INJ, Dosing Weight 47.727, kg, Q8H, Start date: 0:00:00 [employer], Duration: 30 day, Stop date: 11/05/18 16:00:00 [employer] Notes: (Same as: BD Posiflush) Start Date: 10/07/18 Stop Date: 10/15/18 Status: DiscontinuedSaline Flush 0.9% 10 mL, Route: IVP, Drug Form: INJ, Dosing Weight 47.727, kg, PRN, PRN Line Flush , Start date: 10/06/18 8:28:00 [employer], Duration: 30 day, Stop date: 11/05/18 8:27: 00 [employer] Notes: (Same as: BD Posiflush) Start Date: 10/06/18 Stop Date: 10/07/18 Status: DeletedSaline Flush 0.9% 10 mL, Route: IVP, Drug Form: INJ, Dosing Weight 47.727, kg, Q8H, Start date: 16:00:00 [employer],Duration: 30 day, Stop date: 11/05/18 8:00:00 [employer] Notes: (Same as: BD Posiflush) Start Date: 10/06/18 Stop Date: 10/07/18 Status: Voided With ResultsSaline Flush 0.9% 10 ml, Route: IVP, Drug Form: INJ, Dosing Weight 47.727, kg, PRN, PRN Line Flush , Start date: 10/05/18 15:15:00 [employer], Duration: 30 day, Stop date: 11/04/18 15:14 :00 [employer] Notes: (Same as: BD Posiflush) Start Date: 10/05/18 Stop Date: 10/15/18 Status: DiscontinuedSaline Flush 0.9% 10 ml, Route: IVP, Drug Form: INJ, Dosing Weight 47.727, kg, Q12H, Start date: 10/05/18 21:00:00 [employer], Duration: 30 day, Stop date: 11/04/18 9:00:00 [employer] Notes: (Same as: BD Posiflush) Start Date: 10/05/18 Stop Date: 10/15/18 Status: DiscontinuedSaline Flush 0.9% 10 ml, Route: IVP, Drug Form: INJ, Dosing Weight 47.727, kg, PRN, PRN Line Flush , Start date: 10/06/18 11:43:00 [employer], Duration: 30 day, Stop date: 11/05/18 11:42 :00 [employer] Notes: Same as: BD Posiflush Sterile Start Date: 10/06/18 Stop Date: 10/07/18 Status: DeletedSaline Flush 0.9% 10 ml, Route: IVP, Drug Form: INJ, Dosing Weight 47.727, kg, Q12H, Start date: 10/06/18 21:00:00 [employer], Duration: 30 day, Stop date: 11/05/18 9:00:00 [employer] Notes: Same as: BD Posiflush Sterile Start Date: 10/06/18 Stop Date: 10/07/18 Status: Voided With Resultssenna 8.6 mg, 1 tab, Route: PO, Drug Form: TAB, Dosing Weight 47.727, kg, Q12H, Start date: 10/06/18 21:00:00 [employer], Duration: 30 day, Stop date: 11/05/18 9:00:00 [employer] Notes: (Same as: Senokot) Start Date: 10/06/18 Stop Date: 10/15/18 Status: DiscontinuedSodium Chloride 0.9% IV (ANES) 235 mL + vancomycin (ANES) 1500 mg Route: IV, Drug form: INJ, Start date: 10/06/18 10:01:00 [employer], Stop date: 11:01:00 [employer] Start Date: 10/06/18 Stop Date: 10/06/18 Status: Completedsodium phosphate + Sodium Chloride 0.9% IV 250 mL 30 mmol, 10 mL, Route: IVPB, PRN, Dosing Weight 47.727, kg, PRN Abnormal Lab Result, Start date: 10/05/18 16:39:00 [employer], Duration: 30 day, Stop date: 16:38:00 [employer], FOR ICU USE ONLY Notes: Infuse over 4 hour. Do not infuse phosphorous concurrently in the same line as TPN or IVF that contains calcium. For double lumen central lines, phosphorous may be infused in a separate lumen from TPN. Start Date: 10/05/18 Stop Date: 10/07/18 Status: Discontinuedsodium phosphate + Sodium Chloride 0.9% IV 250 mL 45 mmol, 15 mL, Route: IVPB, PRN, Dosing Weight 47.727, kg, PRN Abnormal Lab Result, Start date: 10/05/18 16:39:00 [employer], Duration: 30 day, Stop date: 16:38:00 [employer], FOR ICU USE ONLY Notes: Infuse over 4 hour. Do not infuse phosphorous concurrently in the same line as TPN or IVF that contains calcium. For double lumen central lines, phosphorous may be infused in a separate lumen from TPN. Start Date: 10/05/18 Stop Date: 10/07/18 Status: Discontinuedsodium phosphate + Sodium Chloride 0.9% IV 250 mL 15 mmol, 5 mL, Route: IVPB, PRN, Dosing Weight 47.727, kg, PRN Abnormal Lab Result, Start date: 10/05/18 16:39:00 [employer], Duration: 30 day, Stop date: 16:38:00 [employer], FOR ICU USE ONLY Notes: Infuse over 4 hour. Do not infuse phosphorous concurrently in the same line as TPN or IVF that contains calcium. For double lumen central lines, phosphorous may be infused in a separate lumen from TPN. Start Date: 10/05/18 Stop Date: 10/07/18 Status: Discontinuedtramadol 50 mg, 1 tab, Route: PO, Drug form: TAB, Q6Hnow, Dosing Weight 47.727, kg, PRN Pain Score 4-6, Startdate: 10/06/18 11:43:00 [employer], Duration: 30 day, Stop date: 11/05/18 11:42:00 [employer] Notes: Not to exceed 400mg/day. (Same As: Ultram) Start Date: 10/06/18 Stop Date: 10/15/18 Status: Discontinuedtramadol 50 mg oral tablet 50 mg=1 tab, PO, Q6Hnow, PRN Pain Score 4-6, X 7 day, # 20 tab, 0 Refill(s) Start Date: 10/10/18 Stop Date: 10/17/18 Status: Completedtramadol 50 mg oral tablet 50 mg=1 tab, PO, Q6Hnow, PRN Pain Score 4-6, 0 Refill(s) Start Date: 10/15/18 Status: Suspendedvancomycin 1,000 mg, Route: IVPB, Drug form: INJ, [id number], Dosing Weight 47.727, kg, Start date: 10/06/18 11:00:00 [employer], Duration: 10 day, Stop date: 10/16/18 4:00:00 [employer], ABX Indication: PEDIATRIC LPN Infection/Epidural Abcess Notes: TIME CRITICAL MEDICATION(Same As: Vancocin)Infusion rate< 1000 mg: infuse over 1 [id number] - 1500 mg: infuse over 1.5 [id number] - 2000 mg: infuse over 2 hours> 2001 mg: infuse over 2.5 hoursFor adult patients only: Round to nearest 250 mg per Medical Staff approval MEDICATION WASTE Product Size: 1000 mgProduct Wasted: ___ mg Start Date: 10/06/18 Stop Date: 10/07/18 Status: Discontinuedvancomycin 500 mg, Route: IVPB, Drug form: PDR/INJ, [id number], Dosing Weight 47.727, kg, Start date: 10/14/18 22:00:00 [employer], Duration: 14 day, Stop date: 10/28/18 10:00: 00 [employer], ABX Indication: PEDIATRIC LPN Infection/EpiduralAbcess Notes: TIME CRITICAL MEDICATION(Same As: Vancocin)For adult patients only: Round to nearest 250 mg per Medical Staff approval Start Date: 10/14/18 Stop Date: 10/15/18 Status: Discontinuedvancomycin 900 mg, Route: IVPB, Drug form: INJ, ABXQ8H, Dosing Weight 47.727, kg, Start date: 10/08/18 4:00:00 [employer], Duration: 10 day, Stop date: 10/17/18 20:00:00 [employer], ABX Indication: PEDIATRIC LPN Infection/Epidural Abcess Start Date: 10/08/18 Stop Date: 10/08/18 Status: Canceledvancomycin 1 gm, Route: IVPB, Drug form: INJ, [id number], Start date: 10/08/18 15:00:00 [employer], Duration: 8 day, Stopdate: 10/16/18 3:00:00 [employer], ABX Indication: PEDIATRIC LPN Infection/ Epidural Abcess Notes: TIME CRITICAL MEDICATION(Same As: Vancocin)Infusion rate< 1000 mg: infuse over 1 [id number] - 1500 mg: infuse over 1.5 [id number] - 2000 mg: infuse over 2 hours> 2001 mg: infuse over 2.5 hoursFor adult patients only: Round to nearest 250 mg per Medical Staff approval MEDICATION WASTE Product Size: 1000 mgProduct Wasted: ___ mg Start Date: 10/08/18 Stop Date: 10/12/18 Status: Voided With Resultsvancomycin + Sodium Chloride 0.9% IV 250 mL 750 mg, Route: IVPB, [id number], Start date: 10/13/18 8:00:00 [employer], Duration: 30 day , Stop date: 11/11/18 21:00:00 [employer], ABX Indication: PEDIATRIC LPN Infection/Epidural Abcess Notes: TIME CRITICAL MEDICATION(Same As: Vancocin)Infusion rate< 1000 mg: infuse over 1 [id number] - 1500 mg: infuse over 1.5 [id number] - 2000 mg: infuse over 2 hours> 2001 mg: infuse over 2.5 hoursFor adult patients only: Round to nearest 250 mg per Medical Staff approval MEDICATION WASTE Product Size: 1000 mgProduct Wasted: ___ mg Start Date: 10/13/18 Stop Date: 10/14/18 Status: Discontinuedvancomycin 1 g intravenous injection 1 gm, IVPB, [id number], 0 Refill(s) Start Date: 10/10/18 Stop Date: 11/07/18 Status: Suspendedvancomycin 500 mg intravenous injection 500 mg, IVPB, [id number], 0 Refill(s) Start Date: 10/15/18 Status: Suspendedzolpidem 5 mg, 1 tab, Route: PO, Drug form: TAB, Bedtime, PRN Insomnia, Start date: 10/14 23:54:00 [employer], Duration: 30 day, Stop date: 11/13/18 23:53:00 CDT Notes: (Same As: Amie) Start Date: 10/14/18 Stop Date: 10/15/18 Status: Discontinued Results BLOOD BANK RESULTS Most recent to oldest [Reference Range]: 1 2 3 ABO/Rh O POS *Unknown* (10/05/18 10:01 AM) Antibody Scrn Negative (10/05/18 10:01 AM) ELECTROLYTES Most recent to oldest 1 2 3 [Reference Range]: Sodium Lvl [135-145 mEq/L] 146 mEq/L 147 mEq/L 143 mEq/L *HI* *HI* (10/09/18 3:14 AM) (10/15/18 6:24 AM) (2/9/19 4:23 AM) Potassium Lvl [3.5-5.1 mEq/L] 3.3 mEq/L 2.9 mEq/L 1 3.6 mEq/L *LOW* *CRIT* (10/09/18 3:14 AM) (10/15/18 6:24 AM) (10/14/18 4:23 AM) Chloride Lvl [95-109 mEq/L] 113 mEq/L 115 mEq/L 109 mEq/L *HI* *HI* (10/09/18 3:14 AM) (10/15/18 6:24 AM) (10/14/18 4:23 AM) CO2 [24-32 mEq/L] 25 mEq/L 25 mEq/L 30 mEq/L (10/15/18 6:24 AM) (10/14/18 4:23 AM) (10/09/18 3:14 AM) AGAP [10.0-20.0 mEq/L] 11.3 mEq/L 9.9 mEq/L 7.6 mEq/L (10/15/18 6:24 AM) *LOW* *LOW* (10/14/18 4:23 AM) (10/09/18 3:14 AM) 1Result Comment: Critical Result(s) called to Racquel Ramirez at 10/14/2018 05: 27 by ET. Read back OK.CHEM PANEL Most recent to oldest 1 2 3 [Reference Range]: Creatinine Lvl [0.50-1.40 1.01 mg/dL 0.70 mg/dL 0.40 mg/dL mg/dL] (10/15/18 6:24 AM) (10/14/18 4:23 AM) *LOW* (10/09/18 3:14 AM) eGFR 63 mL/min/1.73m2 1 98 mL/min/1.73m2 2 119 mL/min/1.73m2 3 *NA* *NA* *NA* (10/15/18 6:24 AM) (10/14/18 4:23 AM) (10/09/18 3:14 AM) BUN [7-22 mg/dL] 10 mg/dL 8 mg/dL 8 mg/dL (10/15/18 6:24 AM) (10/14/18 4:23 AM) (10/09/18 3:14 AM) Glucose Lvl [70-99 mg/dL] 87 mg/dL 93 mg/dL 79 mg/dL (10/15/18 6:24 AM) (10/14/18 4:23 AM) (10/09/18 3:14 AM) Total Protein [6.4-8.4 6.0 g/dL g/dL] *LOW* (10/06/18 2:01 AM) Albumin Lvl [3.5-5.0 g/dL] 2.2 g/dL *LOW* (10/06/18 2:01 AM) Globulin [2.7-4.2 g/dL] 3.8 g/dL (10/06/18 2:01 AM) A/G Ratio [0.7-1.6] 0.6 *LOW* (10/06/18 2:01 AM) Calcium Lvl [8.5-10.5 8.8 mg/dL 8.7 mg/dL 8.7 mg/dL mg/dL] (10/15/18 6:24 AM) (10/14/18 4:23 AM) (10/09/18 3:14 AM) Phosphorus [2.5-4.5 mg/dL] 1.8 mg/dL 3.0 mg/dL 3.7 mg/dL *LOW* (10/07/18 12:09 AM) (10/06/18 2:01 AM) (10/08/18 4:47 AM) Magnesium Lvl [1.8-2.4 1.9 mg/dL 1.9 mg/dL 2.0 mg/dL mg/dL] (10/08/18 4:47 AM) (10/07/18 12:09 AM) (10/06/18 2:01 AM) ALT [0-65 unit/L] 16 unit/L (10/06/18 2:01 AM) AST [0-37 unit/L] 6 unit/L (10/06/18 2:01 AM) Alk Phos [39-136 unit/L] 138 unit/L *HI* (10/06/18 2:01 AM) Bili Total [0.2-1.3 mg/dL] 0.4 mg/dL (10/06/18 2:01 AM) Bili Direct [0.0-0.3 mg/dL] 0.2 mg/dL (10/06/18 2:01 AM) Bili Indirect [0.0-1.0 0.2 mg/dL mg/dL] (10/06/18 2:01 AM) Lactic Acid Lvl [0.5-2.2 0.8 mMol/L mMol/L] (10/06/18 5:44 PM) 1Result Comment: The eGFR is calculated [...] 1 2 3 Total CK [12-191 unit/L] 41 unit/L (10/05/18 11:54 PM) Troponin-I [0.00-0.40 ng/mL] <0.02 ng/mL (10/05/18 11:54 PM) PARATHYROID PROFILE Most recent to oldest 1 2 3 [Reference Range]: Ca Ion WB [1.05-1.25 mMol/L] 1.10 mMol/L 1.17 mMol/L 0.93 mMol/L (10/08/18 4:47 AM) (10/07/18 12:09 AM) *LOW* (10/05/18 11:54 PM) Ca Norm WB [1.05-1.25 mMol/L] 1.13 mMol/L 1.17 mMol/L 0.98 mMol/L (10/08/18 4:47 AM) (10/07/18 12:09 AM) *LOW* (10/05/18 11:54 PM) DRUG SCREEN Most recent to oldest [Reference Range]: 1 2 3 U Amph Scr [Negative] Negative *NA* (10/05/18 10:07 PM) U Didi Scr [Negative] Negative *NA* (10/05/18 10:07 PM) U Benzodiaz Scr [Negative] Negative *NA* (10/05/18 10:07 PM) U Cannab Scr [Negative] Negative *NA* (10/05/18 10:07 PM) U Cocaine Scr [Negative] Negative *NA* (10/05/18 10:07 PM) U Methadone Scr [Negative] Negative *NA* (10/05/18 10:07 PM) U Opiate Scr [Negative] Positive *ABN* (10/05/18 10:07 PM) U Phencyclidine Scr [Negative] Negative *NA* (10/05/18 10:07 PM) U Propoxyph Scr [Negative] Negative *NA* (10/05/18 10:07 PM) UDS Note See Note (10/05/18 10:07 PM) TOXICOLOGY Most recent to oldest 1 2 3 [Reference Range]: Latosha Tr TND * 1518 0300 *NA* *NA* *NA* (10/14/18 9:00 PM) (10/11/18 3:26 PM) (10/09/18 3:14 AM) Vanco Lvl 17.0 ug/ml *NA* (10/08/18 11:59 AM) Angeo Tr 23.9 ug/ml 23.1 ug/ml 18.6 ug/ml *NA* *NA* *NA* (10/14/18 9:00 PM) (10/11/18 3:26 PM) (10/09/18 3:14 AM) URINE CHEM Most recent to oldest [Reference Range]: 1 2 3 U Preg [Negative] Negative (10/05/18 10:07 PM) URINE AND STOOL Most recent to oldest [Reference Range]: 1 2 3 UA Turbidity [Clear] Marked *ABN* (10/05/18 10:07 PM) UA Color [Yellow] Yellow *NA* (10/05/18 10:07 PM) UA pH [5.0-8.0] 7.0 (10/05/18 10:07 PM) UA Spec Grav [<=1.030] 1.020 (10/05/18 10:07 PM) UA Glucose [Negative mg/dL] Negative mg/dL *NA* (10/05/18 10:07 PM) UA Blood [Negative] Large *ABN* (10/05/18 10:07 PM) UA Ketones [Negative mg/dL] Negative mg/dL *NA* (10/05/18 10:07 PM) UA Protein [Negative mg/dL] 100 mg/dL *ABN* (10/05/18 10:07 PM) UA Urobilinogen [0.1-1.0 mg/dL] <=1.0 mg/dL *NA* (10/05/18 10:07 PM) UA Bili [Negative] Negative *NA* (10/05/18 10:07 PM) UA Leuk Est [Negative] Large *ABN* (10/05/18 10:07 PM) UA Nitrite [Negative] Negative (10/05/18 10:07 PM) UA WBC [0-5 /HPF] >182 /HPF *HI* (10/05/18 10:07 PM) UA RBC [0-2 /HPF] 175 /HPF *HI* (10/05/18 10:07 PM) UA Bacteria [None Seen /HPF] Moderate /HPF *ABN* (10/05/18 10:07 PM) UA Sq Epi [Few /LPF] Few /LPF *NA* (10/05/18 10:07 PM) UA Mucus [None Seen /LPF] Many /LPF *ABN* (10/05/18 10:07 PM) UA [place] Yeast [None Seen /HPF] Few /HPF *ABN* (10/05/18 10:07 PM) BODY FLUIDS Most recent to oldest [Reference Range]: 1 2 3 Glucose CSF [45-80 mg/dL] 63 mg/dL (10/05/18 3:45 PM) Protein CSF [15-45 mg/dL] 130 mg/dL 1 *HI* (10/05/18 3:45 PM) Tube Num CSF xxxxxxx (10/05/18 3:45 PM) Color CSF [Colorless] Colorless (10/05/18 3:45 PM) Clarity CSF [Clear] Clear (10/05/18 3:45 PM) Supernat CSF [Colorless] Colorless (10/05/18 3:45 PM) RBC CSF [0-0 /mm3] 0 /mm3 (10/05/18 3:45 PM) WBC CSF [0-5 /mm3] 1 /mm3 (10/05/18 3:45 PM) Comment CSF Differential not performed on WBC count of less than 5. *NA* (10/05/18 3:45 PM) 1Result Comment: "Significant Findings called to Afshan Stoddard at 10/05/2018 18: 24 by BLJ. Read Back OK."IMMUNOLOGY Most recent to oldest [Reference Range]: 1 2 3 CRP [<=2.9 mg/L] 23.9 mg/L *HI* (10/05/18 10:20 AM) CDC HIV 4th GEN [Negative] Negative *NA* (10/05/18 6:14 AM) HEMATOLOGY Most recent to oldest 1 2 3 [Reference Range]: WBC [3.7-10.4 K/CMM] 10.8 K/CMM 8.2 K/CMM 6.1 K/CMM *HI* (10/12/18 12:22 AM) (10/09/18 6:39 AM) (10/14/18 4:23 AM) RBC [4.20-5.40 M/CMM] 3.16 M/CMM 2.90 M/CMM 3.31 M/CMM *LOW* *LOW* *LOW* (10/14/18 4:23 AM) (10/12/18 12:22 AM) (10/09/18 6:39 AM) Hgb [12.0-16.0 g/dL] 9.5 g/dL 8.5 g/dL 9.6 g/dL 1 *LOW* *LOW* *LOW* (10/14/18 4:23 AM) (10/12/18 12:22 AM) (10/09/18 6:39 AM) Hct [36.0-48.0 %] 28.5 % 26.1 % 30.0 % *LOW* *LOW* *LOW* (10/14/18 4:23 AM) (10/12/18 12:22 AM) (10/09/18 6:39 AM) MCV [80.0-98.0 fL] 90.3 fL 89.8 fL 90.6 fL (10/14/18 4:23 AM) (10/12/18 12:22 AM) (10/09/18 6:39 AM) MCH [27.0-31.0 pg] 30.0 pg 29.4 pg 29.1 pg (10/14/18 4:23 AM) (10/12/18 12:22 AM) (10/09/18 6:39 AM) MCHC [32.0-36.0 g/dL] 33.3 g/dL 32.8 g/dL 32.1 g/dL (10/14/18 4:23 AM) (10/12/18 12:22 AM) (10/09/18 6:39 AM) RDW [11.5-14.5 %] 15.5 % 15.2 % 15.3 % *HI* *HI* *HI* (10/14/18 4:23 AM) (10/12/18 12:22 AM) (10/09/18 6:39 AM) MPV [7.4-10.4 fL] 7.9 fL 8.5 fL 8.0 fL (10/14/18 4:23 AM) (10/12/18 12:22 AM) (10/09/18 6:39 AM) Platelet [133-450 K/CMM] 342 K/CMM 327 K/CMM 326 K/CMM (10/14/18 4:23 AM) (10/12/18 12:22 AM) (10/09/18 6:39 AM) Segs [45.0-75.0 %] 61.5 % 58.0 % 48.6 % (10/14/18 4:23 AM) (10/12/18 12:22 AM) (10/09/18 3:14 AM) Lymphocytes [20.0-40.0 %] 31.6 % 33.5 % 42.9 % (10/14/18 4:23 AM) (10/12/18 12:22 AM) *HI* (10/09/18 3:14 AM) Monocytes [2.0-12.0 %] 4.9 % 6.0 % 5.6 % (10/14/18 4:23 AM) (10/12/18 12:22 AM) (10/09/18 3:14 AM) Eosinophils [0.0-4.0 %] 1.4 % 1.3 % 2.3 % (10/14/18 4:23 AM) (10/12/18 12:22 AM) (10/09/18 3:14 AM) Basophils [0.0-1.0 %] 0.6 % 1.2 % 0.6 % (10/14/18 4:23 AM) *HI* (10/09/18 3:14 AM) (10/12/18 12:22 AM) Neutrophils # [1.5-8.1 6.6 K/CMM 4.7 K/CMM 3.6 K/CMM K/CMM] (10/14/18 4:23 AM) (10/12/18 12:22 AM) (10/09/18 3:14 AM) Lymphocytes # [1.0-5.5 3.4 K/CMM 2.7 K/CMM 3.2 K/CMM K/CMM] (10/14/18 4:23 AM) (10/12/18 12:22 AM) (10/09/18 3:14 AM) Monocytes # [0.0-0.8 0.5 K/CMM 0.5 K/CMM 0.4 K/CMM K/CMM] (10/14/18 4:23 AM) (10/12/18 12:22 AM) (10/09/18 3:14 AM) Eosinophils # [0.0-0.5 0.2 K/CMM 0.1 K/CMM 0.2 K/CMM K/CMM] (10/14/18 4:23 AM) (10/12/18 12:22 AM) (10/09/18 3:14 AM) Basophils # [0.0-0.2 0.1 K/CMM 0.1 K/CMM K/CMM] (10/14/18 4:23 AM) (10/12/18 12:22 AM) Sed Rate [0-20 mm/hr] 58 mm/hr 91 mm/hr 58 mm/hr *HI* *HI* *HI* (10/10/18 4:28 AM) (10/09/18 3:14 AM) (10/08/18 4:47 AM) PT [12.0-14.7 seconds] 14.4 seconds 14.6 seconds 38.4 seconds (10/06/18 12:50 PM) (10/06/18 1:34 AM) *HI* (10/05/18 11:54 PM) INR [0.85-1.17] 1.14 1.16 4.04 2 (10/06/18 12:50 PM) (10/06/18 1:34 AM) *CRIT* (10/05/18 11:54 PM) PTT [22.9-35.8 seconds] 34.2 seconds 32.8 seconds >200 seconds (10/06/18 12:50 PM) (10/06/18 1:34 AM) *CRIT* (10/05/18 11:54 PM) ACT (TEG) Rapid [86-118 97 seconds 97 seconds seconds] (10/06/18 1:34 AM) (10/05/18 11:54 PM) [place] Rapid 0.4 minutes 0.5 minutes *NA* *NA* (10/06/18 1:34 AM) (10/05/18 11:54 PM) R-time Rapid [0.4-0.7 0.5 minutes 0.5 minutes minutes] (10/06/18 1:34 AM) (10/05/18 11:54 PM) K-time Rapid [0.6-2.3 0.8 minutes 0.8 minutes minutes] (10/06/18 1:34 AM) (10/05/18 11:54 PM) Angle Rapid [64-80 82 degrees 83 degrees degrees] *HI* *HI* (10/06/18 1:34 AM) (10/05/18 11:54 PM) Max Amplitude Rapid [52-71 80 mm 79 mm mm] *HI* *HI* (10/06/18 1:34 AM) (10/05/18 11:54 PM) G-value Rapid [5.0-11.6 K 19.6 K d/sc 18.6 K d/sc d/sc] *HI* *HI* (10/06/18 1:34 AM) (10/05/18 11:54 PM) Estimated % Lysis Rapid 0.4 % 0.3 % [0.0-7.5 %] (10/06/18 1:34 AM) (10/05/18 11:54 PM) 1Result Comment: Notified Tim Laguna at 10/09/2018 07:03.2Result Comment: Critical Result(s) called to jose perez at 10/06/2018 01:20 bysss. Read back OK.BACTERIAL - SEROLOGY Most recent to oldest [Reference Range]: 1 2 3 MRSA by PCR Negative (10/05/18 6:04 PM) Microbiology Reports TEST:Culture: Anaerobic STATUS:Auth (Verified) BODY SITE:Sinus,Resp SOURCE:Sinus,Resp COLLECTED DATE/TIME:10/06/18 10:52 AMFINAL REPORTNo Anaerobes Isolated After 5 DaysTEST:Culture: Sinus w/Gram Stain STATUS:Auth (Verified) BODY SITE:Sinus,Resp SOURCE:SINUS COLLECTED DATE/TIME:10/06/18 10:52 AMFINAL REPORTFew Corynebacterium Species , Presumptive IdentificationSTAIN REPORTModerate WBC's No Squamous Epithelial Cells; No Organisms SeenTEST:Culture: Anaerobic STATUS:Auth (Verified) BODY SITE:Abscess SOURCE:Wound, Surgical COLLECTED DATE/TIME:10/06/18 9:31 AMFINAL REPORTNo Anaerobes Isolated After 5 DaysTEST:Culture: Wound/Abscess w/Gram Stain STATUS:Modified/Amended/Cor BODY SITE:Abscess SOURCE:Wound, Surgical COLLECTED DATE/TIME:10/06/18 9:31 AMFINAL REPORTRare Corynebacterium striatumSTAIN REPORTModerate WBC's No Organisms Seen No Organisms Seen ORGANISM:Corynebacterium striatumTEST:Culture: Urine STATUS:Auth (Verified) BODY SITE: SOURCE:Urine, Clean Catch COLLECTED DATE/TIME:10/06/18 1:06 AMFINAL REPORT50,000 - 100,000 CFU/mL Escherichia coli >100,000 CFU/mL Enterococcus Species ORGANISM:Escherichia coliORGANISM:Enterococcus SpeciesTEST:Culture: CSF w/Gram Stain STATUS:Auth (Verified) BODY SITE: SOURCE:Cerebral Spinal Fluid COLLECTED DATE/TIME:10/05/18 3:45 PMFINAL REPORTNo GrowthSTAIN REPORT Gram Stain Performed By: [facility] Immunizations Given and Recorded Vaccine Date Status [...] tissue of thorax2 Tracheostomy Completed 1Several spinal [id number] seperate procedures. the last one was more [...] Exercise Assessment and Plan Extracted from: Title: Infection Admission H&P * Author: Temo Flanagan MD Date: 10/13/18 Impression and Plan Suspected frontal brain abscess Craniotomy with drainage ID PLAN Review cultures ,growing Corynebacterium,will ask Micro for sensitivity studies Discontinue Cefepime and Metronidazole Stable,afebrile,alert Vancomycin trough today and will continue 750 mg q24h Extracted from: Title: Infection Admission H&P * Author: Temo Flanagan MD Date: 10/06/18 Impression and Plan Suspected frontal brain abscess Craniotomy with drainage ID PLAN Review cultures Continue Cefepime,Flagyl,Vanco
--- OUTSIDE RECORDS SUMMARY | 2019-01-05 19:46 | XMS REPORT | Summary of Care ---
:1965 Author Organization [facility] Address [address], [place] [address]- Encounter HQ Encntr_johanna(FIN) [id number] Date(s): 01/20/16 - 02/19/16 [facility] [address] [place] [address] Professional Services provided by The [facility] [place] [address]- Discharge Disposition: Halfway Facility Attending Physician: Mary Kay Alamo MD Admitting Physician: Thuan Jones MD Vital Signs Most recent to oldest 1 2 3 [Reference Range]: Height 152.4 cm 152.4 cm 152.4 cm (02/05/16 7:38 AM) (02/05/16 3:54 AM) (02/04/16 11:35 PM) Current Weight 58.1 kg 52.003 kg 54 kg (02/06/16 5:23 AM) (02/05/16 5:58 AM) (02/03/16 6:00 AM) Temperature Oral [96.4-99.1 98.1 DegF 98.5 DegF 98.4 DegF DegF] (02/18/16 3:35 PM) (02/17/16 4:05 PM) (02/17/16 11:50 AM) Blood Pressure [90-140/60-90 124/79 mmHg 99/64 mmHg 110/72 mmHg mmHg] (02/19/16 12:15 PM) (02/19/16 8:15 AM) (02/19/16 3:12 AM) Respiratory Rate [14-20 18 BRMIN 20 BRMIN 16 BRMIN BRMIN] (02/19/16 12:15 PM) (02/19/16 8:15 AM) (02/19/16 3:12 AM) Peripheral Pulse Rate 109 bpm 1 106 bpm 2 104 bpm [60-100 bpm] *HI* *HI* *HI* (02/19/16 12:15 PM) (02/19/16 8:15 AM) (02/19/16 3:12 AM) Weight 60 kg 48.9 kg 66 kg (01/22/16 7:00 AM) (01/21/16 12:54 AM) (01/20/16 9:55 PM) Body Mass Index 21.05 m2 (01/21/16 12:54 AM) 1Result Comment: notified NAIDA [id number] Comment: notified NAIDA lopes Problem List Condition Effective Dates Status Health Status Informant Carpal tunnel(Confirmed) Resolved Giant cell tumor(Confirmed)1 Resolved HTN - Hypertension(Confirmed) Resolved Scar tissue(Confirmed)2 Resolved 1four thoracic tumors, all [id number] lungs because of thoracic procedures Allergies, Adverse Reactions, Alerts Substance Reaction Severity Status Phenergan Active Medications acetaminophen 650 mg, Route: IV, Drug form: INJ, ONCE, Dosing Weight 60, kg, Priority: STAT, Start date: 02/03/16 16:23:00 CDT, Stop date: 02/03/16 16:23:00 CDT, Pediatric Dosing Start Date: 02/03/16 Stop Date: 02/03/16 Status: Discontinuedalbumin human 5% intravenous solution 12.5 gm, 250 mL, 500 ml/hr, Route: IV, Drug Form: INJ, Dosing Weight 60, kg, ONCE, Start date: 01/30/16 22:57:00 CDT, Stop date: 01/30/16 22:57:00 CDT Notes: LOT#: Mfg: WASTE: F/P - Red; E -Red (Same as: Albuminar)"blood product derivative" Start Date: 01/30/16 Stop Date: 01/31/16 Status: Completedalteplase 2 mg, 2 mL, Route: intraVENTRICular, Drug form: INJ, ONCE, Dosing Weight 60, kg , Start date: 01/25/16 10:11:00 CDT, Stop date: 01/25/16 10:11:00 CDT Notes: Reconstitute each vial of Cathflo Activase with 2.2 ml Sterile Water resulting in a 1 mg/ml solution. Stable for 8 hours only. (Same as: Activase) * MEDICATION WASTE Product Size: 2 mgProduct Wasted: __0_ mg Start Date: 01/25/16 Stop Date: 01/25/16 Status: Completedamantadine 100 mg, 1 cap, Route: PO, Drug form: CAP, BID, Dosing Weight 60, kg, Priority: STAT, Start date: 02/02/16 11:21:00 CDT, Duration: 30 day, Stop date: 03/03/16 9 :00:00 CDT Notes: (Same as: Warren) Start Date: 02/02/16 Stop Date: 02/02/16 Status: Discontinuedamantadine 100 mg, 1 cap, Route: PO, Drug form: CAP, Before Lunch, Dosing Weight 60, kg, Start date: 02/03/16 14:30:00 CDT, Duration: 30 day, Stop date: 03/04/16 11:30: 00 CDT Notes: (Same as: Warren) Start Date: 02/03/16 Stop Date: 02/19/16 Status: Discontinuedamantadine 100 mg, 1 cap, Route: PO, Drug form: CAP, Daily, Dosing Weight 60, kg, Start date: 02/03/16 7:00:00 CDT, Duration: 30 day, Stop date: 03/03/16 9:00:00 CDT Notes: (Same as: Warren) Start Date: 02/03/16 Stop Date: 02/19/16 Status: Discontinuedamantadine 100 mg oral capsule 100 mg=1 cap, PO, Before Lunch, 0 Refill(s) Start Date: 02/19/16 Status: Orderedamantadine 100 mg oral capsule 100 mg=1 cap, PO, Daily, 0 Refill(s) Start Date: 02/19/16 Status: OrderedAncef 2 gm, Route: IVPB, ONCE, Dosing Weight 48.9, kg, Start date: 01/21/16 11:18:00 CDT, Duration: 1 doses or times, Stop date: 01/21/16 11:18:00 CDT, Surgical Prophylaxis Only; For patients < 120 kg Start Date: 01/21/16 Stop Date: 01/21/16 Status: CompletedAncef 2 gm, Route: IVPB, ONCE, kg, Start date: 01/20/16 21:49:00 CDT, Duration: 1 doses or times, Stop date: 01/20/16 21:49:00 CDT, Surgical Prophylaxis Only; For patients < 120 kg Start Date: 01/20/16 Stop Date: 01/20/16 Status: CompletedAncef + Sodium Chloride 0.9% IV 100 mL 2 gm, Route: IVPB, ONCE, Dosing Weight 60, kg, Start date: 01/30/16 6:36:00 CDT , Duration: 1 doses or times, Stop date: 01/30/16 6:36:00 CDT, Surgical Prophylaxis Only; For patients < 120 kg Notes: (Same As: Adria Sotelofzowhitney)Cefazolin FOR IV SET ONLY MEDICATION WASTE Product Size:1000 mgProduct Wasted: ___ mg Start Date: 01/30/16 Stop Date: 01/30/16 Status: CompletedAncef + Sodium Chloride 0.9% IV 100 mL 2 gm, Route: IVPB, ONCE, Dosing Weight 60, kg, Start date: 02/02/16 10:01:00 CDT , Duration: 1 doses or times, Stop date: 02/02/16 10:01:00 CDT, Surgical Prophylaxis Only; For patients < 120 kg Notes: (Same As: AncAdria evansfzol)Cefazolin FOR IV SET ONLY MEDICATION WASTE Product Size:1000 mgProduct Wasted: ___ mg Start Date: 02/02/16 Stop Date: 02/02/16 Status: Completedbisacodyl 10 mg, 1 supp, Route: VT, Drug form: SUPP, ONCE, Dosing Weight 60, kg, Start date: 01/24/16 5:14:00 CDT, Stop date: 01/24/16 5:14:00 CDT Notes: (Same As: Dulcolax, Bisco-Lax) Start Date: 01/24/16 Stop Date: 01/24/16 Status: Completedbisacodyl 10 mg, 1 supp, Route: VT, Drug form: SUPP, Daily, kg, PRN Constipation, Start date: 01/20/16 21:07:00 CDT, Duration: 30 day, Stop date: 03/20/16 21:06:00 CDT Notes: (Same As: Dulcolax, Bisco-Lax) Start Date: 01/20/16 Stop Date: 02/19/16 Status: Discontinuedcalcium carbonate 500 mg (200 mg elemental calcium) oral tablet 500 mg, 1 tab, Route: PO, Drug form: CHEWTAB, PRN, Dosing Weight 48.9, kg, PRN Abnormal Lab Result, FOR ICU USE ONLY, Start date: 01/21/16 4:29:00 CDT, Duration: 30 day, Stop date: 02/20/16 4:28:00 CDT Notes: (Same As: Clotildes)Calcium Carbonate 500 ik=950 mg elemental calcium Dose=_ mg calcium carbonate ( mg elemental calcium) Start Date: 01/21/16 Stop Date: 02/06/16 Status: Discontinuedcalcium carbonate 500 mg (200 mg elemental calcium) oral tablet 1,000 mg, 2 tab, Route: PO, Drug form: CHEWTAB, PRN, Dosing Weight 48.9, kg, PRN Abnormal Lab Result, FOR ICU USE ONLY, Start date: 01/21/16 4:29:00 CDT, Duration: 30 day, Stop date: 02/20/16 4:28:00 CDT Notes: (Same As: Madhavi)Calcium Carbonate 500 yg=250 mg elemental calcium Dose=_ mg calcium carbonate ( mg elemental calcium) Start Date: 01/21/16 Stop Date: 02/06/16 Status: Discontinuedcalcium gluconate + Sodium Chloride 0.9% IV 50 mL 1 gm, 10 mL, Route: IVPB, PRN, Dosing Weight 48.9, kg, PRN Abnormal Lab Result, Start date: 164:29:00 CDT, Duration: 30 day, Stop date: 02/20/16 4:28:00 CDT, FOR ICU USE ONLY Notes: WASTE: F/P - Sink; E - Municipal Trash Bin Start Date: 01/21/16 Stop Date: 02/06/16 Status: DiscontinuedCardene 40 mg in NS 200 mL (Titrate.) IV 40 mg 40 mg, 200 mL, Rate: Titrate, Start Dose: 5 mg/hr, Titration: 2.5 mg/hr every 15 minutes, Goal(s): Systolic < 140, MAP > 100, Max Dose: 15 mg/hr, Route: IV , Total Volume: 200, Start date: 01/20/16 20:48:00 CDT, Duration:30 day, Stop date: 02/19/16 20... Notes: Same as: CardeneConcentration: (0.2 mg /1 ml ) Start Date: 01/20/16 Stop Date: 01/22/16 Status: DiscontinuedcefTRIAXone 1 gm, Route: IVPB, Drug form: PDR/INJ, [id number], Dosing Weight 60, kg, Priority: STAT, Start date: 02/10/16 16:30:00 CDT, Duration: 5 day, Stop date: 02/14/16 16 :30:00 CDT Notes: (Same As: Rocephin). MEDICATION WASTE Product Size: 1000 mgProduct Wasted: 0 mg Start Date: 02/10/16 Stop Date: 02/14/16 Status: Completedchlorhexidine topical 0.12% liquid 15 mL, Route: Swab Mouth, Q4H, Drug form: LIQ, Start date: 01/21/16 0:00:00 CDT , Duration: 30 day, Stop date: 02/19/16 20:00:00 CDT Notes: (Same As: Peridex) Start Date: 01/21/16 Stop Date: 02/06/16 Status: Discontinueddexamethasone 10 mg, Route: IVP, ONCE, kg, Priority: STAT, Start date: 01/20/16 21:03:00 CDT, Stop date: 01/20/16 21:03:00 CDT Start Date: 01/20/16 Stop Date: 01/20/16 Status: Completeddexamethasone 4 mg, 1 mL, Route: IVP, Drug form: INJ, Q6H-02, Dosing Weight 60, kg, Priority: STAT, Start date: 02/03/16 14:27:00 CDT, Duration: 3 doses or times, Stop date: 02/04/16 2:00:00 CDT Notes: Concentration: 4mg/ml Start Date: 02/03/16 Stop Date: 02/04/16 Status: Completeddexamethasone 4 mg, 1 mL, Route: IVP, Drug form: INJ, Q6H-02, Dosing Weight 60, kg, Start date : 02/03/16 17:00:00 CDT, Duration: 3 doses or times, Stop date: 02/04/16 5:00: 00 CDT Notes: Concentration: 4mg/ml Start Date: 02/03/16 Stop Date: 02/03/16 Status: Canceleddexamethasone 10 mg, 1 mL, Route: IVP, Drug form: INJ, ONCE, Dosing Weight 60, kg, Priority: STAT, Start date: 02/03/16 10:55:00 CDT, Stop date: 02/03/16 10:55:00 CDT Notes: MEDICATION WASTE Product Size: 10 mgProduct Wasted: ___ mg Start Date: 02/03/16 Stop Date: 02/03/16 Status: CompletedDextrose 50% Syringe 12.5 gm, 25 mL, Route: IVP, Drug Form: INJ, kg, PRN, PRN Abnormal Lab Result, Start date: 01/20/16 21:07:00 CDT, Duration: 30 day, Stop date: 03/20/16 21:06: 00 CDT Start Date: 01/20/16 Stop Date: 02/19/16 Status: DiscontinuedDextrose 50% Syringe 6.25 gm, 12.5 mL, Route: IVP, Drug Form: INJ, kg, PRN, PRN Abnormal Lab Result, Start date: 01/19/1621:07:00 CDT, Duration: 30 day, Stop date: 03/20/16 21:06: 00 CDT Start Date: 01/20/16 Stop Date: 02/19/16 Status: DiscontinuedDextrose 50% Syringe 25 gm, 50 mL, Route: IVP, Drug Form: INJ, kg, PRN, PRN Abnormal Lab Result, Start date: 01/20/16 21:07:00 CDT, Duration: 30 day, Stop date: 03/20/16 21:06: 00 CDT Start Date: 01/20/16 Stop Date: 02/19/16 Status: Discontinueddocusate PO, Q12H, 0 Refill(s) Start Date: 02/19/16 Status: Ordereddocusate sodium 100 mg oral capsule 100 mg, 10 mL, Route: PO, Drug form: LIQ, Q12H, kg, Start date: 01/21/16 9:00: 00 CDT, Duration: 30 day, Stop date: 03/20/16 21:00:00 CDT Notes: (Same as: Colace) Start Date: 01/21/16 Stop Date: 02/19/16 Status: DiscontinuedDulcolax Laxative 10 mg, 1 supp, Route: VT, Drug form: SUPP, Daily, Dosing Weight 60, kg, Start date: 02/14/16 9:00:00CDT, Duration: 30 day, Stop date: 03/14/16 9:00:00 CDT Notes: (Same As: Dulcolax, Bisco-Lax) Start Date: 02/14/16 Stop Date: 02/19/16 Status: DiscontinuedDuoNeb inhalation solution 3 ml, Route: NEB, Drug Form: SOLN, Dosing Weight 60, kg, RQ4H, Start date: 02/02 11:00:00 CDT, Duration: 30 day, Stop date: 03/04/16 7:00:00 CDT Notes: (Same as: Duoneb) Start Date: 02/03/16 Stop Date: 02/19/16 Status: DiscontinuedDuoNeb inhalation solution 3 mL, NEB, RQ4H, 0 Refill(s) Start Date: 02/19/16 Status: OrderedDuoNeb inhalation solution 3 ml, Route: NEB, Drug Form: SOLN, Dosing Weight 48.9, kg, PRN, PRN Respiratory Protocol, Start date: 01/22/16 8:55:00 CDT, Duration: 30 day, Stop date: 8:54:00 CDT Notes: (Same as: Duoneb) Start Date: 01/22/16 Stop Date: 02/03/16 Status: Discontinuedetomidate 30 mg, 15 mL, Route: IVP, Drug form: INJ, ONCE, Dosing Weight 60, kg, > 67 kg, Priority: STAT, Start date: 02/03/16 14:24:00 CDT, Stop date: 02/03/16 14:24:00 CDT, Pediatric Dosing; for intubation Notes: (Same as: Amidate). Start Date: 02/03/16 Stop Date: 02/03/16 Status: Completedfamotidine 20 mg, 2 mL, Route: IVP, Drug form: INJ, Q12H, kg, Start date: 01/21/16 9:00:00 CDT, Duration: 30 day, Stop date: 02/19/16 21:00:00 CDT Notes: (Same as: Pepcid)Can be dilute in 5-10cc NS IVP: Slow IV push over at least 2 minutes. Start Date: 01/21/16 Stop Date: 01/23/16 Status: DiscontinuedfentaNYL - one time ICU bolus dose 25 microgram, 0.5 mL, Route: IVP, Drug form: INJ, ONCE, Dosing Weight 60, kg, Start date: 01/23/16 2:39:00 CDT, Stop date: 01/23/16 2:39:00 CDT Notes: (Same as: Sublimaze) Preservative free. Start Date: 01/23/16 Stop Date: 01/23/16 Status: CompletedfentaNYL 1000 microgram in 20 mL NS (Titrate.) IV 1,000 microgram 1,000 microgram, 20 mL, Rate: Titrate, Start Dose: 50 microgram/hr, Titration: 25 microgram/hour every 15 minutes, Goal(s): map >70, Max Dose: 300 microgram/hr , Route: IV, Dosing Weight 60 kg, Total Volume: 20, Start date: 01/23/16 9:23: 00 CDT, Durati... Start Date: 01/23/16 Stop Date: 01/29/16 Status: DiscontinuedfentaNYL 1000 microgram in 20 mL NS (Titrate.) IV 1,000 microgram 1,000 microgram, 20 mL, Rate: Titrate, Start Dose: 50 microgram/hr, Titration: 25 microgram/hour every 15 minutes, Goal(s): rass 0 to -2, Max Dose: 300 microgram/hr, Route: IV, Dosing Weight 60 kg, Total Volume: 20, Start date: 16:06:00 CDT,... Start Date: 02/03/16 Stop Date: 02/05/16 Status: DiscontinuedfentaNYL 1000 microgram in 20 mL NS (Titrate.) IV 1,000 microgram 1,000 microgram, 20 mL, Rate: Titrate, Start Dose: 50 microgram/hr, Titration: 25 microgram/hour every 15 minutes, Goal(s): Systolic < 140, MAP > 100, Max Dose: 300 microgram/hr, Route: IV, Total Volume: 20, Start date: 01/20/16 20:47: 00 CDT, Duration... Start Date: 01/20/16 Stop Date: 01/22/16 Status: Discontinuedglycopyrrolate 0.1 mg, 0.5 mL, Route: IV, Drug form: INJ, Q8H, Dosing Weight 60, kg, Start date : 02/14/16 16:00:00 CDT, Duration: 30 day, Stop date: 03/15/16 8:00:00 CDT Notes: (Same as: Indira) Start Date: 02/14/16 Stop Date: 02/19/16 Status: Discontinuedglycopyrrolate 0.1 mg, 0.5 mL, Route: IV, Drug form: INJ, ONCE, Dosing Weight 60, kg, Priority : STAT, Start date: 02/14/16 8:27:00 CDT, Stop date: 02/14/16 8:27:00 CDT Notes: (Same as: Indira) Start Date: 02/14/16 Stop Date: 02/14/16 Status: Completedglycopyrrolate 0.2 mg/mL injectable solution 0.1 mg=0.5 mL, IV, Q8H, 0 Refill(s) Start Date: 02/19/16 Status: Orderedheparin SUB-Q, Q8H, 0 Refill(s) Start Date: 02/19/16 Status: Orderedheparin 5000 units/mL injectable solution 5,000 unit, 1 mL, Route: SUB-Q, Drug form: INJ, Q8H, Dosing Weight 48.9, kg, Start date: 01/22/16 23:00:00 CDT, Duration: 30 day, Stop date: 03/22/16 16:00: 00 CDT Notes: porcine heparin Start Date: 01/22/16 Stop Date: 02/19/16 Status: Discontinuedinsulin regular 100 units/mL human recombinant 7 unit, 0.07 mL, Route: SUB-Q, Drug form: SOLN, PRN, kg, PRN Abnormal Lab Result , Start date: 01/20/16 21:07:00 CDT, Duration: 30 day, Stop date: 03/20/16 21:06 :00 CDT Notes: (Same as: Humulin R) Roll in palms of hands gently; Do not shake vigorously. "single patientuse only"(Restricted to patients requiring a dose > 60 units)WASTE: F/P - Black; E - Municipal Trash Bin Stable for 28 days at room temperatureExpires in days from Date Start Date: 01/20/16 Stop Date: 02/19/16 Status: Discontinuedinsulin regular 100 units/mL human recombinant 5 unit, 0.05 mL, Route: SUB-Q, Drug form: SOLN, PRN, kg, PRN Abnormal Lab Result , Start date: 01/20/16 21:07:00 CDT, Duration: 30 day, Stop date: 03/20/16 21:06 :00 CDT Notes: (Same as: Humulin R) Roll in palms of hands gently; Do not shake vigorously. "single patientuse only"(Restricted to patients requiring a dose > 60 units)WASTE: F/P - Black; E - Municipal Trash Bin Stable for 28 days at room temperatureExpires in days from Date Start Date: 01/20/16 Stop Date: 02/19/16 Status: Discontinuedinsulin regular 100 units/mL human recombinant 3 unit, 0.03 mL, Route: SUB-Q, Drug form: SOLN, PRN, kg, PRN Abnormal Lab Result , Start date: 01/20/16 21:07:00 CDT, Duration: 30 day, Stop date: 03/20/16 21:06 :00 CDT Notes: (Same as: Humulin R) Roll in palms of hands gently; Do not shake vigorously. "single patientuse only"(Restricted to patients requiring a dose > 60 units)WASTE: F/P - Black; E - Municipal Trash Bin Stable for 28 days at room temperatureExpires in days from Date Start Date: 01/20/16 Stop Date: 02/19/16 Status: DiscontinuedKeppra 1,000 mg, Route: IV, ONCE, kg, Priority: STAT, Start date: 01/20/16 21:02:00 CDT , Stop date: 01/20/16 21:02:00 CDT Start Date: 01/20/16 Stop Date: 01/20/16 Status: CompletedKeppra 100 mg/mL oral solution 500 mg, 5 mL, Route: GT, Drug form: SOLN, Q12H, Dosing Weight 60, kg, Start date : 02/06/16 21:00:00 CDT, Duration: 30 day, Stop date: 03/07/16 9:00:00 CDT Notes: Same as: Keppra Start Date: 02/06/16 Stop Date: 02/19/16 Status: DiscontinuedKeppra 100 mg/mL oral solution 500 mg=5 mL, GT, Q12H, 0 Refill(s) Start Date: 02/19/16 Status: OrderedKeppra 100 mg/mL oral solution 1,000 mg, 10 mL, Route: GT, Drug form: SOLN, Q12H, Dosing Weight 60, kg, Start date: 01/23/16 21:00:00 CDT, Stop date: 02/22/16 9:00:00 CDT Notes: Same as: Keppra Start Date: 01/23/16 Stop Date: 02/06/16 Status: DiscontinuedKeppra 500 mg oral tablet 500 mg, 5 mL, Route: PO, Drug form: SOLN, ONCE, Dosing Weight 60, kg, Start date : 01/24/16 8:55:00 CDT, Stop date: 01/24/16 8:55:00 CDT Notes: Same as: Keppra Start Date: 01/24/16 Stop Date: 01/24/16 Status: Completedlabetalol 10 mg, 2 mL, Route: IVP, Drug form: INJ, Q10Min, Dosing Weight 60, kg, PRN Hypertension, Start date:02/10/16 10:07:00 CDT, Duration: 30 day, Stop date: 03/20 10:06:00 CDT Start Date: 02/10/16 Stop Date: 02/19/16 Status: DiscontinuedlevETIRAcetam + Sodium Chloride 0.9% IV 100 mL 500 mg, Route: IVPB, Q12H, kg, Priority: Routine, Start date: 01/21/16 9:00:00 CDT, Duration: 30 day, Stop date: 02/19/16 21:00:00 CDT Notes: Same as KeppraMix with 100 mL NS, LR or D5W MEDICATION WASTE Product Size: 500 mgProduct Wasted: ___ mg Start Date: 01/21/16 Stop Date: 01/23/16 Status: DiscontinuedLevophed 16 mg in 250 mL (Titrate.) IV 16 mg + Sodium Chloride 0.9% IV 234 mL 16 mg, 16 mL, Rate: Titrate, Start Dose: 0.1 microgram/kg/min, Titration: 0.05 microgram/kg/min every 2 - 5 minutes, Goal(s): MAP >=65 mmHg, Max Dose: 1 microgram/kg/min, Route: IV, Dosing Weight 48.9 kg, Total Volume: 250, Start date: 01/21/16 18:00... Notes: Not for direct administration - DILUTE. Protect from light. (Same as: Levophed). Administer byeither central venous catheter or peripherally-inserted central catheter (PICC) line. Start Date: 01/21/16 Stop Date: 01/23/16 Status: Discontinuedlidocaine 1% 50 mg, 5 mL, Route: INTRADERM, Drug Form: INJ, Dosing Weight 60, kg, ONCALL, Start date: 02/03/16 11:00:00 CDT, Duration: 1 day, Stop date: 02/04/16 10:59: 00 CDT Notes: (Same as: Xylocaine) Start Date: 02/03/16 Stop Date: 02/19/16 Status: Discontinuedmagnesium citrate 300 ml, Route: PO, Drug Form: LIQ, Dosing Weight 60, kg, ONCE, Start date: 01/23 8:20:00 CDT, Stop date: 01/24/16 8:20:00 CDT Notes: (Same as: Citrate of Magnesia) Start Date: 01/24/16 Stop Date: 01/24/16 Status: Completedmagnesium oxide 800 mg, 2 tab, Route: PO, Drug form: TAB, PRN, Dosing Weight 48.9, kg, PRN Abnormal Lab Result, FOR ICU USE ONLY, Start date: 01/21/16 4:29:00 CDT, Duration: 30 day, Stop date: 02/20/16 4:28:00 CDT Notes: (Same as: Mag-Ox 400)Magnesium oxide [id number] elemental magnesiumDose= ____mg magnesium oxide (___mg elemental magnesium) Start Date: 01/21/16 Stop Date: 02/06/16 Status: Discontinuedmagnesium sulfate 2 gm, 50 mL, Route: IVPB, Drug form: INJ, PRN, Dosing Weight 48.9, kg, PRN Abnormal Lab Result, Start date: 01/21/16 4:29:00 CDT, Duration: 30 day, Stop date: 02/20/16 4:28:00 CDT, FOR ICU USE ONLY Notes: WASTE: F/P - Sink; E - Municipal Trash Bin Start Date: 01/21/16 Stop Date: 02/06/16 Status: Discontinuedmannitol 10 gm, Route: IV, ONCE, Dosing Weight 60, kg, Start date: 01/23/16 16:26:00 CDT , Stop date: 01/23/1616:26:00 CDT Start Date: 01/23/16 Stop Date: 01/23/16 Status: Completedmeloxicam 15 mg oral tablet 15 mg=1 tab, PO, Daily, PRN Pain, prn Start Date: 02/09/16 Stop Date: 02/19/16 Status: Discontinuedmethadone 10 mg, 2 tab, Route: PO, Drug form: TAB, Q12H, Dosing Weight 48.9, kg, Start date: 01/22/16 9:00:00 CDT, Stop date: 02/20/16 21:00:00 CDT Notes: (Same as: Dolophine) Start Date: 01/22/16 Stop Date: 01/23/16 Status: Discontinuedmethadone 10 mg oral tablet 10 mg=1 tab, PO, Q8H, PRN Pain Start Date: 02/09/16 Stop Date: 02/19/16 Status: Discontinuedmetoclopramide 10 mg, 2 mL, Route: IVP, Drug form: INJ, Q6H, Dosing Weight 60, kg, PRN Nausea & amp; Vomiting, Startdate: 01/25/16 9:17:00 CDT, Duration: 30 day, Stop date: 9:16:00 CDT Notes: (Same as: Reglan) Start Date: 01/25/16 Stop Date: 02/19/16 Status: DiscontinuedMiraLax 17 gm, 1 pkt, Route: PO, Drug form: PWDR, BID, Dosing Weight 48.9, kg, Start date: 01/22/16 9:00:00 CDT, Duration: 30 day, Stop date: 02/20/16 17:00:00 CDT Notes: Dissolve in 8 oz of water or juice.(Same as: Miralax) Start Date: 01/22/16 Stop Date: 02/06/16 Status: Discontinuedmodafinil 200 mg, 2 tab, Route: PO, Drug form: TAB, ONCE, Dosing Weight 60, kg, Priority: NOW, Start date: 02/09/16 11:43:00 CDT, Stop date: 02/09/16 11:43:00 CDT Notes: (Same as:Provigil) Start Date: 02/09/16 Stop Date: 02/09/16 Status: Completedmodafinil 100 mg, 1 tab, Route: PO, Drug form: TAB, QPM, Dosing Weight 60, kg, Start date : 02/10/16 13:00:00 CDT, Duration: 30 day, Stop date: 03/10/16 13:00:00 CDT Notes: (Same as:Provigil) Start Date: 02/10/16 Stop Date: 02/19/16 Status: Discontinuedmodafinil 100 mg, 1 tab, Route: PO, Drug form: TAB, QAM, Dosing Weight 60, kg, Start date : 02/10/16 7:00:00 CDT, Duration: 30 day, Stop date: 03/10/16 7:00:00 CDT Notes: (Same as:Provigil) Start Date: 02/10/16 Stop Date: 02/19/16 Status: Discontinuedmodafinil 100 mg oral tablet 100 mg=1 tab, PO, QPM, 0 Refill(s) Start Date: 02/19/16 Status: Orderedmodafinil 100 mg oral tablet 100 mg=1 tab, PO, QAM, 0 Refill(s) Start Date: 02/19/16 Status: Orderedmorphine Sulfate 2 mg, 1 mL, Route: IVP, Drug form: INJ, Q1H, kg, PRN Pain Score 7-10, Start date : 01/20/16 21:07:00 CDT, Duration: 30 day, Stop date: 03/20/16 21:06:00 CDT Notes: (Same as:MORPhine Sulfate) Start Date: 01/20/16 Stop Date: 02/19/16 Status: DiscontinuedNeutra-Phos 2 pkt, Route: PO, Drug Form: PDR/REC, Dosing Weight 48.9, kg, PRN, PRN Abnormal Lab Result, FOR ICU USE ONLY, Start date: 01/21/16 4:29:00 CDT, Duration: 30 day , Stop date: 02/20/16 4:28:00 CDT Notes: (Same as: Neutra-Phos) Each 1.25 gm pkt has 250mg phosphorous. Mix w/ 2.5oz water and stir. Start Date: 01/21/16 Stop Date: 02/06/16 Status: DiscontinuedniCARdipine 5 mg, Route: INTRAARTERIAL, ONCE, Dosing Weight 60, kg, Start date: 01/27/16 12: 48:00 CDT, Stop date: 01/27/16 12:48:00 CDT Start Date: 01/27/16 Stop Date: 01/27/16 Status: CompletedniCARdipine 5 mg, Route: INTRAARTERIAL, ONCE, Dosing Weight 60, kg, Start date: 01/29/16 12: 50:00 CDT, Stop date: 01/29/16 12:50:00 CDT Start Date: 01/29/16 Stop Date: 01/29/16 Status: CompletedniCARdipine 5 mg, Route: INTRAARTERIAL, ONCE, Dosing Weight 60, kg, Start date: 01/27/16 13: 24:00 CDT, Stop date: 01/27/16 13:24:00 CDT Start Date: 01/27/16 Stop Date: 01/27/16 Status: CompletedniCARdipine 5 mg, Route: INTRAARTERIAL, ONCE, Dosing Weight 60, kg, Start date: 01/23/16 16: 25:00 CDT, Stop date: 01/23/16 16:25:00 CDT Start Date: 01/23/16 Stop Date: 01/23/16 Status: CompletedniCARdipine 5 mg, Route: INTRAARTERIAL, ONCE, Dosing Weight 60, kg, Start date: 02/05/16 11: 41:00 CDT, Stop date: 02/05/16 11:41:00 CDT Start Date: 02/05/16 Stop Date: 02/05/16 Status: CompletedniCARdipine 5 mg, Route: INTRAARTERIAL, ONCE, Dosing Weight 60, kg, Start date: 01/27/16 12: 58:00 CDT, Stop date: 01/27/16 12:58:00 CDT Start Date: 01/27/16 Stop Date: 01/27/16 Status: CompletedniMODipine 30 mg, 1 mL, Route: PO, Drug form: SUSP, Q2H, kg, Start date: 01/20/16 22:00:00 CDT, Duration: 30 day, Stop date: 02/19/16 20:00:00 CDT Notes: (Same as Nimodipine oral suspension 30mg/ml)Instill dose into NG tube and then flush with 30ml of NS Start Date: 01/20/16 Stop Date: 02/06/16 Status: DiscontinuedniMODipine 60 mg, 2 mL, Route: PO, Drug form: SUSP, Q4H, kg, Start date: 02/06/16 12:00:00 CDT, Duration: 30 day, Stop date: 03/07/16 8:00:00 CDT Notes: (Same as Nimodipine oral suspension 30mg/ml)Instill dose into NG tube and then flush with 30ml of NS Start Date: 02/06/16 Stop Date: 02/11/16 Status: Discontinuednitroglycerin 200 microgram, Route: INTRAARTERIAL, ONCE, Dosing Weight 60, kg, Start date: 12:50:00 CDT, Stop date: 01/29/16 12:50:00 CDT Start Date: 01/29/16 Stop Date: 01/29/16 Status: Completednitroglycerin 200 microgram, Route: INTRAARTERIAL, ONCE, Dosing Weight 60, kg, Start date: 10/21 11:41:00 CDT, Stop date: 02/05/16 11:41:00 CDT Start Date: 02/05/16 Stop Date: 02/05/16 Status: Completednitroglycerin 200 microgram, Route: INTRAARTERIAL, ONCE, Dosing Weight 60, kg, Start date: 13:02:00 CDT, Stop date: 01/29/16 13:02:00 CDT Start Date: 01/29/16 Stop Date: 01/29/16 Status: Completednitroglycerine nitroglycerine, 200 mcg, Route: INTRAARTERIAL, ONCE, 01/27/16 12:48:00 CDT, Stop date: 01/27/16 12:48:00 CDT Start Date: 01/27/16 Stop Date: 01/27/16 Status: Completednitroglycerine nitroglycerine, 200 mcg, Route: INTRAARTERIAL, ONCE, 01/23/16 16:25:00 CDT, Stop date: 01/23/16 16:25:00 CDT Start Date: 01/23/16 Stop Date: 01/23/16 Status: Completednitroglycerine nitroglycerine, 200 mcg, Route: INTRAARTERIAL, ONCE, 01/27/16 13:24:00 CDT, Stop date: 01/27/16 13:24:00 CDT Start Date: 01/27/16 Stop Date: 01/27/16 Status: Completednitroglycerine nitroglycerine, 200 mcg, Route: INTRAARTERIAL, ONCE, 01/27/16 12:58:00 CDT, Stop date: 01/27/16 12:58:00 CDT Start Date: 01/27/16 Stop Date: 01/27/16 Status: Completednormal saline 0.9% IV 1,000 mL 1,000 mL, Rate: 75 ml/hr, Infuse over: 13.3 hr, Route: IV, Total Volume: 1,000, Start date: 01/19/1621:03:00 CDT, Duration: 30 day, Stop date: 02/19/16 21:02: 00 CDT Start Date: 01/20/16 Stop Date: 01/22/16 Status: DiscontinuedNS (Bolus) IV 1,000 mL, 1,000 ml/hr, Infuse Over: 1 hr, Route: IV, 1,000, Drug form: INJ, ONCE , Priority: STAT, Dosing Weight 60 kg, Start date: 01/24/16 1:12:00 CDT, Duration: 1 doses or times, Stop date: 01/24/16 1:12:00 CDT Start Date: 01/24/16 Stop Date: 01/24/16 Status: CompletedNS (Bolus) IV 500 mL, 500 ml/hr, Infuse Over: 1 hr, Route: IV, 500, Drug form: INJ, ONCE, Priority: STAT, Dosing Weight 60 kg, Start date: 02/05/16 14:04:00 CDT, Duration : 1 doses or times, Stop date: 02/05/16 14:04:00 CDT Start Date: 02/05/16 Stop Date: 02/05/16 Status: CompletedNS (Bolus) IV 1,000 mL, 1,000 ml/hr, Infuse Over: 1 hr, Route: IV, 1,000, Drug form: INJ, ONCE , Priority: STAT, Dosing Weight 60 kg, Start date: 01/24/16 4:04:00 CDT, Duration: 1 doses or times, Stop date: 01/24/16 4:04:00 CDT Start Date: 01/24/16 Stop Date: 01/24/16 Status: CompletedNS (Bolus) IV 250 mL, 250 ml/hr, Infuse Over: 1 hr, Route: IV, 250, Drug form: INJ, ONCE, Priority: STAT, Dosing Weight 60 kg, Start date: 01/29/16 22:04:00 CDT, Duration : 1 doses or times, Stop date: 01/29/16 22:04:00 CDT Start Date: 01/29/16 Stop Date: 01/29/16 Status: CompletedNS (Bolus) IV 1,000 mL, 1,000 ml/hr, Infuse Over: 1 hr, Route: IV, 1,000, Drug form: INJ, ONCE , Priority: STAT, Dosing Weight 60 kg, Start date: 01/24/16 1:13:00 CDT, Duration: 1 doses or times, Stop date: 01/24/16 1:13:00 CDT Start Date: 01/24/16 Stop Date: 01/24/16 Status: CompletedNS (Bolus) IV 500 mL, 500 ml/hr, Infuse Over: 1 hr, Route: IV, 500, Drug form: INJ, ONCE, Priority: STAT, Dosing Weight 60 kg, Start date: 02/02/16 11:10:00 CDT, Duration : 1 doses or times, Stop date: 02/02/16 11:10:00 CDT Start Date: 02/02/16 Stop Date: 02/02/16 Status: CompletedNS 1,000 mL 1,000 mL, Rate: 100 ml/hr, Infuse over: 10 hr, Route: IV, Dosing Weight 60 kg, Total Volume: 1,000, Start date: 01/24/16 8:23:00 CDT, Stop date: 02/23/16 8:22: 00 CDT Start Date: 01/24/16 Stop Date: 02/05/16 Status: DiscontinuedNS 1,000 mL 1,000 mL, Rate: 50 ml/hr, Infuse over: 20 hr, Route: IV, Dosing Weight 60 kg, Total Volume: 1,000, Start date: 02/05/16 18:10:00 CDT, Duration: 30 day, Stop date: 03/06/16 18:09:00 CDT Start Date: 02/05/16 Stop Date: 02/14/16 Status: DiscontinuedOmnipaque 300 150 ml, Route: INTRAARTERIAL, Dosing Weight 60, kg, ONCE, Start date: 01/29/16 12:50:00 CDT, Stop date: 01/29/16 12:50:00 CDT Start Date: 01/29/16 Stop Date: 01/29/16 Status: CompletedOmnipaque 300 150 mL, Route: INTRAARTERIAL, Dosing Weight 60, kg, ONCE, Start date: 01/27/16 13:43:00 CDT, Stop date: 01/27/16 13:43:00 CDT Start Date: 01/27/16 Stop Date: 01/27/16 Status: CompletedOmnipaque 300 150 mL, Route: INTRAARTERIAL, Drug Form: SOLN, Dosing Weight 48.9, kg, ONCE, Start date: 01/21/16 8:20:00 CDT, Stop date: 01/21/16 8:20:00 CDT Notes: (Same as:Omnipaque 350).WASTE: F/P - Black; E - Municipal Trash Bin Start Date: 01/21/16 Stop Date: 01/21/16 Status: CompletedOmnipaque 300 150 mL, Route: INTRAARTERIAL, Dosing Weight 60, kg, ONCE, Start date: 01/27/16 13:44:00 CDT, Stop date: 01/27/16 13:44:00 CDT Start Date: 01/27/16 Stop Date: 01/27/16 Status: CompletedOmnipaque 300 80 mL, Route: INTRAARTERIAL, Dosing Weight 60, kg, ONCE, Start date: 02/05/16 11 :59:00 CDT, Stop date: 02/05/16 11:59:00 CDT Start Date: 02/05/16 Stop Date: 02/05/16 Status: CompletedOmnipaque 350 150 ml, Route: INTRAARTERIAL, Dosing Weight 60, kg, ONCE, Start date: 01/23/16 16:25:00 CDT, Stop date: 01/23/16 16:25:00 CDT Start Date: 01/23/16 Stop Date: 01/23/16 Status: Completedondansetron 4 mg, 2 mL, Route: IVP, Drug form: INJ, Q8H, kg, PRN Nausea & Vomiting, Start date: 01/20/16 21:07:00 CDT, Duration: 30 day, Stop date: 03/20/16 21:06: 00 CDT Notes: (Same as: Luisaan) MEDICATION WASTE Product Size: 4 mgProduct Wasted: ___ mg Start Date: 01/20/16 Stop Date: 02/19/16 Status: Discontinuedphenylephrine 50 mg in NS 250 mL (Titrate.) IV 50 mg + Sodium Chloride 0.9% IV 245 mL 50 mg, 5 mL, Rate: Titrate, Start Dose: 0.5 microgram/kg/min, Titration: 0.5 microgram/kg/min every 2 - 5 minutes, Goal(s): MAP >100, Max Dose: 5 microgram/ kg/min, Route: IV, Dosing Weight 60 kg, Total Volume: 250, Start date: 02/04/16 23:38:00 CDT, D... Notes: (Same as: Phenylephrine) Start Date: 02/04/16 Stop Date: 02/05/16 Status: Discontinuedpneumococcal 23-valent vaccine 0.5 mL, Route: IM, Drug Form: INJ, Daily, Start date: 01/21/16 9:00:00 CDT, Duration: 1 doses or times, Stop date: 01/21/16 9:00:00 CDT Notes: (Same as: Pneumovax 23) Refrigerate Start Date: 01/21/16 Stop Date: 01/22/16 Status: DeletedPneumovax 23 0.5 mL, Route: IM, Drug Form: INJ, Daily, Start date: 01/22/16 12:00:00 CDT, Duration: 1 doses or times, Stop date: 01/22/16 12:00:00 CDT Notes: (Same as: Pneumovax 23) Refrigerate Start Date: 01/22/16 Stop Date: 01/22/16 Status: Completedpotassium chloride 20 mEq, 100 mL, Route: IVPB, Drug form: INJ, PRN, Dosing Weight 48.9, kg, PRN Abnormal Lab Result, Via central line, Start date: 01/21/16 4:29:00 CDT, Duration: 30 day, Stop date: 02/20/16 4:28:00 CDT,FOR ICU USE ONLY Notes: (Same as: KCL) Infuse no faster than 10 mEq/hr if given peripherally. Start Date: 01/21/16 Stop Date: 02/06/16 Status: Discontinuedpotassium chloride 10 mEq, 50 mL, Route: IVPB, Drug form: INJ, PRN, Dosing Weight 48.9, kg, PRN Abnormal Lab Result, Via peripheral line, Start date: 01/21/16 4:29:00 CDT, Duration: 30 day, Stop date: 02/20/16 4:28:00 CDT, FOR ICU USE ONLY Notes: (Same as: KCL) Infuse over 2 hours. Start Date: 01/21/16 Stop Date: 02/06/16 Status: Discontinuedpotassium chloride 20 mEq, 1 tab, Route: PO, Drug form: ERTAB, PRN, Dosing Weight 48.9, kg, PRN Abnormal Lab Result, Start date: 01/21/16 4:29:00 CDT, Duration: 30 day, Stop date: 02/20/16 4:28:00 CDT, FOR ICU USE ONLY Notes: (Same as: K-Dur 20)"Do Not Crush" With food and full glass of water Start Date: 01/21/16 Stop Date: 02/06/16 Status: Discontinuedpotassium chloride 20 mEq, 15 mL, Route: NJ, Drug form: LIQ, PRN, Dosing Weight 48.9, kg, PRN Abnormal Lab Result, Start date: 01/21/16 4:29:00 CDT, Duration: 30 day, Stop date: 02/20/16 4:28:00 CDT, FOR ICU USE ONLY Notes: (Same as: Potassium Chloride) Start Date: 01/21/16 Stop Date: 02/06/16 Status: Discontinuedpotassium chloride 20 mEq/15 mL oral liquid 40 mEq, 30 mL, Route: PEG, Drug form: LIQ, ONCE, Dosing Weight 60, kg, Start date: 02/08/16 10:58:00CDT, Stop date: 02/08/16 10:58:00 CDT Notes: (Same as: Potassium Chloride) Start Date: 02/08/16 Stop Date: 02/08/16 Status: Completedpotassium phosphate + Sodium Chloride 0.9% IV 250 mL 15 mmol, 5 mL, Route: IVPB, ONCE, Dosing Weight 60, kg, Start date: 02/08/16 11: 17:00 CDT, Stop date: 02/08/16 11:17:00 CDT Notes: (Same as: K Phosphate.) 1 mMol phoshate has 1.47 mEq potassium Infuse over 4 hours Start Date: 02/08/16 Stop Date: 02/08/16 Status: Completedpotassium phosphate + Sodium Chloride 0.9% IV 250 mL 45 mmol, 15 mL, Route: IVPB, PRN, Dosing Weight 48.9, kg, PRN Abnormal Lab Result, Start date: 01/21/16 4:29:00 CDT, Duration: 30 day, Stop date: 02/20/16 4:28:00 CDT, FOR ICU USE ONLY Notes: (Same as: K Phosphate.) 1 mMol phoshate has 1.47 mEq potassium Infuse over 4 hours Start Date: 01/21/16 Stop Date: 02/06/16 Status: Discontinuedpotassium phosphate + Sodium Chloride 0.9% IV 250 mL 15 mmol, 5 mL, Route: IVPB, PRN, Dosing Weight 48.9, kg, PRN Abnormal Lab Result , Start date: 01/21/16 4:29:00 CDT, Duration: 30 day, Stop date: 02/20/16 4:28: 00 CDT, FOR ICU USE ONLY Notes: (Same as: K Phosphate.) 1 mMol phoshate has 1.47 mEq potassium Infuse over 4 hours Start Date: 01/21/16 Stop Date: 02/06/16 Status: Discontinuedpotassium phosphate + Sodium Chloride 0.9% IV 250 mL 30 mmol, 10 mL, Route: IVPB, PRN, Dosing Weight 48.9, kg, PRN Abnormal Lab Result, Start date: 01/21/16 4:29:00 CDT, Duration: 30 day, Stop date: 02/20/16 4:28:00 CDT, FOR ICU USE ONLY Notes: (Same as: K Phosphate.) 1 mMol phoshate has 1.47 mEq potassium Infuse over 4 hours Start Date: 01/21/16 Stop Date: 02/06/16 Status: DiscontinuedPrecedex 400 microgram in NS 100 mL (Titrate.) IV 400 microgram + Sodium Chloride 0.9% IV 96 mL 400 microgram, 4 mL, Rate: Titrate, Start Dose: 0.2 microgram/kg/hr, Titration: 0.1 microgram/kg/hr every 30 min, Goal(s): map >65, Max Dose: 1.5 microgram/kg/ hr, Route: IV, Dosing Weight 48.9 kg, Total Volume: 100, Start date: 01/22/16 8: 56:00 CDT, D... Notes: Not for use > 24 hours Start Date: 01/22/16 Stop Date: 01/23/16 Status: Discontinuedpropofol 10 mg/mL (Titrate.) IV 1,000 mg 1,000 mg, 100 mL, Rate: Titrate, Start Dose: 5 microgram/kg/min, Titration: 5 microgram/kg/min every15 min, Goal(s): RASS -2, Max Dose: 50 microgram/kg/min, Route: IV, Dosing Weight 65 kg, Total Volume: 100, Start date: 01/20/16 21:49: 00 CDT, Duratio... Notes: If Diprivan - change bottle & tubing every 12 hrPer [address] nursing law propofol can only be given by a nurse if patient is intubated or being intubated (unless the nurse is a COMBAT CONTROL). Same as:Diprivan Start Date: 01/20/16 Stop Date: 01/22/16 Status: Discontinuedpropofol 10 mg/mL (Titrate.) IV 1,000 mg 1,000 mg, 100 mL, Rate: Titrate, Start Dose: 5 microgram/kg/min, Titration: 5 microgram/kg/min every15 min, Goal(s): rass 0 to -2, Max Dose: 50 microgram/kg/ min, Route: IV, Dosing Weight 60 kg, Total Volume: 100, Start date: 02/03/16 16: 06:00 CDT, Du... Notes: If [facility] - [facility] bottle [facility] can only be given by a nurse if patient is intubated or being intubated (unless the nurse is a COMBAT CONTROL). Same as:Diprivan Start Date: 02/03/16 Stop Date: 02/04/16 Status: Discontinuedpropofol 10 mg/mL (Titrate.) IV 1,000 mg 1,000 mg, 100 mL, Rate: Titrate, Start Dose: 5 microgram/kg/min, Titration: 5 microgram/kg/min every15 min, Goal(s): map>70, Max Dose: 50 microgram/kg/min, Route: IV, Dosing Weight 60 kg, Total Volume: 100, Start date: 01/23/16 9:22:00 CDT, Duration:... Notes: If Diprivan - change bottle & tubing [facility] propofol can only be given by a nurse if patient is intubated or being intubated (unless the nurse is a COMBAT CONTROL). Same as:Diprivan Start Date: 01/23/16 Stop Date: 01/23/16 Status: Discontinuedracemic epinephrine 2.25% inhalation solution 11.25 mg, 0.5 mL, Route: NEB, Drug Form: SOLN, Dosing Weight 60, kg, RQ4H, STAT , Start date: 02/03/16 10:52:00 CDT, Duration: 30 day, Stop date: 03/04/16 7:00: 00 CDT Notes: (racepinephrine *2.25% inh 0.5ml SOLN) (Same as:S2) Start Date: 02/03/16 Stop Date: 02/03/16 Status: DiscontinuedReglan 10 mg, 2 mL, Route: IV, Drug form: INJ, ONCE, Dosing Weight 60, kg, Start date: 01/25/16 18:39:00 CDT, Stop date: 01/25/16 18:39:00 CDT, Notes: (Same as: Reglan) Start Date: 01/25/16 Stop Date: 01/25/16 Status: CompletedSaline Flush 0.9% 10 mL, Route: IVP, Drug Form: INJ, Dosing Weight 60, kg, PRN, PRN Line Flush, Start date: 02/03/16 10:23:00 CDT, Duration: 30 day, Stop date: 03/04/16 10:22: 00 CDT Notes: Same as: BD Posiflush Sterile Start Date: 02/03/16 Stop Date: 02/19/16 Status: DiscontinuedSaline Flush 0.9% 10 mL, Route: IVP, Drug Form: INJ, Dosing Weight 60, kg, Q8H, Start date: 16:00:00 CDT, Duration: 30 day, Stop date: 03/04/16 8:00:00 CDT Notes: Same as: BD Posiflush Sterile Start Date: 02/03/16 Stop Date: 02/19/16 Status: DiscontinuedSaline Flush 0.9% 10 ml, Route: IVP, Drug Form: INJ, kg, Q12H, Start date: 01/21/16 9:00:00 CDT, Duration: 30 day, Stop date: 03/20/16 21:00:00 CDT Notes: Same as: BD Posiflush Sterile Start Date: 01/21/16 Stop Date: 02/19/16 Status: DiscontinuedSaline Flush 0.9% 10 ml, Route: IVP, Drug Form: INJ, kg, PRN, PRN Line Flush, Start date: 21:07:00 CDT, Duration: 30 day, Stop date: 03/20/16 21:06:00 CDT Notes: Same as: BD Posiflush Sterile Start Date: 01/20/16 Stop Date: 02/14/16 Status: Deletedsenna 8.6 mg, 1 tab, Route: PO, Drug Form: TAB, kg, Q12H, Start date: 01/21/16 9:00: 00 CDT, Duration: 30 day, Stop date: 02/19/16 21:00:00 CDT Notes: (Same as: Curt) Start Date: 01/21/16 Stop Date: 02/06/16 Status: Discontinuedsenna 8.6 mg, 1 tab, Route: PO, Drug Form: TAB, kg, Daily, Start date: 02/07/16 9:00: 00 CDT, Duration: 30 day, Stop date: 03/07/16 9:00:00 CDT Notes: (Same as: Curt) Start Date: 02/07/16 Stop Date: 02/19/16 Status: Discontinuedsenna 8.6 mg oral tablet 8.6 mg=1 tab, PO, Daily, 0 Refill(s) Start Date: 02/19/16 Status: Orderedsimethicone 40 mg, 0.6 mL, Route: PO, Drug form: DROP, Q6H, Dosing Weight 60, kg, PRN as needed for gas, Start date: 02/01/16 0:46:00 CDT, Duration: 30 day, Stop date: 03/02/16 0:45:00 CDT Notes: (Same as: Mylicon, Phazyme, Genasyme) Start Date: 02/01/16 Stop Date: 02/19/16 Status: DiscontinuedSodium Chloride 0.9% (Bolus) IV 1,000 mL, 1,000 ml/hr, Infuse Over: 1 hr, Route: IV, 1,000, Drug form: INJ, ONCE , Priority: STAT, Dosing Weight 60 kg, Start date: 01/23/16 9:27:00 CDT, Duration: 1 doses or times, Stop date: 01/23/16 9:27:00 CDT Start Date: 01/23/16 Stop Date: 01/23/16 Status: Completedsodium chloride 23.4% (BOLUS) 30 mL, Infuse Over: 60 minutes, Route: IV, ONCE, Dosing Weight 60 kg, Start date : 01/23/16 16:26:00 CDT, Duration: 1 doses or times, Stop date: 01/23/16 16:26: 00 CDT Start Date: 01/23/16 Stop Date: 01/23/16 Status: CompletedSodium Chloride 3% (Hypertonic) IV 500 mL 500 mL, Rate: 75 ml/hr, Infuse over: 6.7 hr, Route: IV Central, Dosing Weight 48.9 kg, Total Volume:500 mL, Start date: 01/22/16 3:08:00 CDT, Duration: 30 day , Stop date: 02/21/16 3:07:00 CDT Notes: "Administer by central venous catheter or a peripherally inserted central catheter (PICC) line.3% Sodium Chloride may be infused via peripheral administration into large vein (antecubital) only in the case of emergency for short term use until a central line can be inserted" (Same as: Hypertonic Saline 3%) Start Date: 01/22/16 Stop Date: 01/23/16 Status: DiscontinuedSodium Chloride 3% inhalation solution 3 mL, Route: NEB, Drug Form: SOLN, Dosing Weight 60, kg, RQ4H, STAT, Start date : 02/12/16 7:41:00 CDT, Duration: 30 day, Stop date: 03/13/16 7:00:00 CDT Notes: SEE RT DOCUMENTATION (Same as: Hypertonic Saline 3%, Inhalation) Start Date: 02/12/16 Stop Date: 02/19/16 Status: DiscontinuedSodium Chloride 3% inhalation solution 0.09 gm=3 mL, NEB, RQ4H, 0 Refill(s) Start Date: 02/19/16 Status: Orderedsodium phosphate + Sodium Chloride 0.9% IV 250 mL 45 mmol, 15 mL, Route: IVPB, PRN, Dosing Weight 48.9, kg, PRN Abnormal Lab Result, Start date: 01/21/16 4:29:00 CDT, Duration: 30 day, Stop date: 02/20/16 4:28:00 CDT, FOR ICU USE ONLY Start Date: 01/21/16 Stop Date: 02/06/16 Status: Discontinuedsodium phosphate + Sodium Chloride 0.9% IV 250 mL 15 mmol, 5 mL, Route: IVPB, PRN, Dosing Weight 48.9, kg, PRN Abnormal Lab Result , Start date: 01/21/16 4:29:00 CDT, Duration: 30 day, Stop date: 02/20/16 4:28: 00 CDT, FOR ICU USE ONLY Start Date: 01/21/16 Stop Date: 02/06/16 Status: Discontinuedsodium phosphate + Sodium Chloride 0.9% IV 250 mL 30 mmol, 10 mL, Route: IVPB, PRN, Dosing Weight 48.9, kg, PRN Abnormal Lab Result, Start date: 01/21/16 4:29:00 CDT, Duration: 30 day, Stop date: 02/20/16 4:28:00 CDT, FOR ICU USE ONLY Start Date: 01/21/16 Stop Date: 02/06/16 Status: Discontinuedsterile water 896.25 mL + sodium acetate 122 mEq + sodium chloride 171 mEq 896.25 mL, 100 ml/hr, Route: IV, Dosing Weight 60, kg, Start date: 01/23/16 10: 42:00 CDT, Stop date:02/22/16 10:41:00 CDT Notes: Careful verify conc Na Acetate 2meq/ml Start Date: 01/23/16 Stop Date: 01/24/16 Status: Discontinuedsterile water INJ 1000 ml 1000 mL + sodium chloride 23.4% IV 342 mEq 1,000 mL, Rate: 100 ml/hr, Infuse over: 10 hr, Route: IV, Dosing Weight 60 kg, Total Volume: 1,000, Start date: 01/23/16 9:28:00 CDT, Duration: 30 day, Stop date: 02/22/16 9:27:00 CDT, For IMU and ICU use only. See Order Comments!! Start Date: 01/23/16 Stop Date: 01/23/16 Status: Discontinuedsterile water INJ 1000 ml 914.5 mL + sodium chloride 23.4% IV 342 mEq 914.5 mL, Rate: 100 ml/hr, Infuse over: 10 hr, Route: IV, Dosing Weight 48.9 kg , Total Volume: 1,000, Start date: 01/21/16 20:35:00 CDT, Duration: 30 day, Stop date: 02/20/16 20:34:00 CDT, For IMU and ICU use only. See Order Comments! ! Start Date: 01/21/16 Stop Date: 01/22/16 Status: Discontinuedsuccinylcholine 100 mg, 5 mL, Route: IVP, Drug form: INJ, ONCE, Dosing Weight 60, kg, Priority: STAT, Start date: 02/03/16 14:24:00 CDT, Stop date: 02/03/16 14:24:00 CDT Notes: (Same As: Anectine) Start Date: 02/03/16 Stop Date: 02/03/16 Status: CompletedTylenol 650 mg, 2 tab, Route: PO, Drug form: TAB, Q6H, Dosing Weight 60, kg, PRN For Temp > 100.4 F, Start date: 01/24/16 9:38:00 CDT, Duration: 30 day, Stop date: 03/24/16 9:37:00 CDT Notes: Do not exceed 4 gm/day. (Same as: Tylenol) Start Date: 01/24/16 Stop Date: 02/19/16 Status: Discontinuedverapamil 10 mg, Route: INTRAARTERIAL, ONCE, Dosing Weight 60, kg, Start date: 01/27/16 12 :48:00 CDT, Stop date: 01/27/16 12:48:00 CDT Start Date: 01/27/16 Stop Date: 01/27/16 Status: Completedverapamil 10 mg, Route: INTRAARTERIAL, ONCE, Dosing Weight 60, kg, Start date: 01/29/16 12 :50:00 CDT, Stop date: 01/29/16 12:50:00 CDT Start Date: 01/29/16 Stop Date: 01/29/16 Status: Completedverapamil 10 mg, Route: INTRAARTERIAL, ONCE, Dosing Weight 60, kg, Start date: 02/05/16 11 :41:00 CDT, Stop date: 02/05/16 11:41:00 CDT Start Date: 02/05/16 Stop Date: 02/05/16 Status: Completedverapamil 10 mg, Route: INTRAARTERIAL, ONCE, Dosing Weight 60, kg, Start date: 01/23/16 16 :25:00 CDT, Stop date: 01/23/16 16:25:00 CDT Start Date: 01/23/16 Stop Date: 01/23/16 Status: Completedverapamil 10 mg, Route: INTRAARTERIAL, ONCE, Dosing Weight 60, kg, Start date: 01/29/16 13 :03:00 CDT, Stop date: 01/29/16 13:03:00 CDT Start Date: 01/29/16 Stop Date: 01/29/16 Status: Completedverapamil 10 mg, 4 mL, Route: INTRAARTERIAL, Drug form: INJ, ONCE, Dosing Weight 60, kg, Start date: 01/27/16 13:24:00 CDT, Stop date: 01/27/16 13:24:00 CDT Notes: (Same As: Bereket Jones) Start Date: 01/27/16 Stop Date: 01/29/16 Status: Completedverapamil 10 mg, Route: INTRAARTERIAL, ONCE, Dosing Weight 60, kg, Start date: 01/27/16 12 :58:00 CDT, Stop date: 01/27/16 12:58:00 CDT Start Date: 01/27/16 Stop Date: 01/27/16 Status: CompletedVersed 100 mg in NS 100 mL (Titrate.) IV 50 mg 50 mg, 50 mL, Rate: Titrate, Start Dose: 1 mg/hr, Titration: Rebolus 1 mg IV and /or Titrate infusionby 1 mg/hour every 30 minutes, Goal(s): Systolic < 140, MAP > 100, Max Dose: 10 mg/hr, Route: IV, Total Volume: 50, Start date: 20:47:00 CDT,... Notes: (Same as: Maurilio) Start Date: 01/20/16 Stop Date: 01/20/16 Status: DiscontinuedVisipaque 320mg/ml 60 mL, Route: IVP, Drug Form: SOLN, Dosing Weight 66, kg, ONCALL, STAT, Start date: 01/20/16 21:58:00 CDT, Duration: 1 doses or times, Dose=2.2ml/kg, Max [id number] -- "To be infused by Radiology Staff ONLY" Start Date: 01/20/16 Stop Date: 01/20/16 Status: CompletedZantac 15 mg/mL oral syrup 150 mg, 10 mL, Route: GT, Drug form: SYRP, Q12H, Dosing Weight 60, kg, Start date: 01/23/16 21:00:00CDT, Duration: 30 day, Stop date: 02/22/16 9:00:00 CDT Notes: (Same as:Zantac)Non-Formulary Item Take before or with meals Start Date: 01/23/16 Stop Date: 02/12/16 Status: Discontinued Results BLOOD BANK RESULTS Most recent to oldest 1 2 3 [Reference Range]: ABO/Rh O POS O POS O POS *Unknown* *Unknown* *Unknown* (02/04/16 12:28 AM) (01/30/16 12:18 AM) (01/27/16 1:35 AM) Antibody Scrn Negative Negative Negative (02/04/16 12:28 AM) (01/30/16 12:18 AM) (01/27/16 1:35 AM) RBC product Product available Product available (01/24/16 8:23 AM) (01/22/16 8:58 AM) ELECTROLYTES Most recent to oldest 1 2 3 [Reference Range]: Sodium Lvl [135-145 mEq/L] 139 mEq/L 139 mEq/L 141 mEq/L (02/17/16 12:17 AM) (02/16/16 1:35 AM) (02/15/16 9:54 AM) Potassium Lvl [3.5-5.1 4.4 mEq/L 4.3 mEq/L 4.4 mEq/L mEq/L] (02/17/16 12:17 AM) (02/16/16 1:35 AM) (02/15/16 9:54 AM) Chloride Lvl [95-109 mEq/L] 102 mEq/L 103 mEq/L 103 mEq/L (02/17/16 12:17 AM) (02/16/16 1:35 AM) (02/15/16 9:54 AM) CO2 [24-32 mEq/L] 28 mEq/L 27 mEq/L 29 mEq/L (02/17/16 12:17 AM) (02/16/16 1:35 AM) (02/15/16 9:54 AM) AGAP [10.0-20.0 mEq/L] 13.4 mEq/L 13.3 mEq/L 13.4 mEq/L (02/17/16 12:17 AM) (02/16/16 1:35 AM) (02/15/16 9:54 AM) CHEM PANEL Most recent to oldest 1 2 3 [Reference Range]: Creatinine Lvl [0.50-1.40 0.48 mg/dL 0.44 mg/dL 0.46 mg/dL mg/dL] *LOW* *LOW* *LOW* (02/17/16 12:17 AM) (02/16/16 1:35 AM) (02/15/16 9:54 AM) eGFR 113 mL/min/1.73m2 1 117 mL/min/1.73m2 2 115 mL/min/1.73m2 3 *NA* *NA* *NA* (02/17/16 12:17 AM) (02/16/16 1:35 AM) (02/15/16 9:54 AM) BUN [7-22 mg/dL] 22 mg/dL 20 mg/dL 21 mg/dL (02/17/16 12:17 AM) (02/16/16 1:35 AM) (02/15/16 9:54 AM) Glucose Lvl [70-99 mg/dL] 140 mg/dL 123 mg/dL 113 mg/dL *HI* *HI* *HI* (02/17/16 12:17 AM) (02/16/16 1:35 AM) (02/15/16 9:54 AM) Total Protein [6.4-8.4 g/dL] 8.3 g/dL 5.3 g/dL (02/15/16 9:54 AM) *LOW* (01/21/16 5:45 PM) Albumin Lvl [3.5-5.0 g/dL] 3.0 g/dL 2.8 g/dL *LOW* *LOW* (02/15/16 9:54 AM) (01/21/16 5:45 PM) Globulin [2.0-4.0 g/dL] 5.3 g/dL 2.5 g/dL *HI* (01/21/16 5:45 PM) (02/15/16 9:54 AM) A/G Ratio [0.7-1.6] 0.6 1.1 *LOW* (01/21/16 5:45 PM) (02/15/16 9:54 AM) Calcium Lvl [8.5-10.5 mg/dL] 10.3 mg/dL 10.5 mg/dL 10.1 mg/dL (02/17/16 12:17 AM) (02/16/16 1:35 AM) (02/15/16 9:54 AM) Phosphorus [2.5-4.5 mg/dL] 3.0 mg/dL 3.4 mg/dL 2.9 mg/dL (02/16/16 1:35 AM) (02/15/16 9:54 AM) (02/14/16 4:41 AM) Magnesium Lvl [1.8-2.4 mg/dL] 2.3 mg/dL 2.4 mg/dL 2.3 mg/dL (02/16/16 1:35 AM) (02/15/16 9:54 AM) (02/14/16 4:41 AM) ALT [0-65 unit/L] 33 unit/L 14 unit/L (02/15/16 9:54 AM) (01/21/16 5:45 PM) AST [0-37 unit/L] 12 unit/L 20 unit/L (02/15/16 9:54 AM) (01/21/16 5:45 PM) GGT [5-85 unit/L] 52 unit/L (02/15/16 9:54 AM) Alk Phos [39-136 unit/L] 97 unit/L 54 unit/L (02/15/16 9:54 AM) (01/21/16 5:45 PM) Bili Total [0.2-1.3 mg/dL] 0.2 mg/dL 0.3 mg/dL (02/15/16 9:54 AM) (01/21/16 5:45 PM) Bili Direct [0.0-0.3 mg/dL] 0.1 mg/dL 0.1 mg/dL (02/15/16 9:54 AM) (01/21/16 5:45 PM) Bili Indirect [0.0-1.0 mg/dL] 0.1 mg/dL 0.2 mg/dL (02/15/16 9:54 AM) (01/21/16 5:45 PM) Amylase Lvl [25-115 unit/L] 77 unit/L (02/15/16 9:54 AM) Lipase Lvl [73-393 unit/L] 394 unit/L *HI* (02/15/16 9:54 AM) Lactic Acid Lvl [0.5-2.2 0.9 mMol/L mMol/L] (01/21/16 5:45 PM) Procalcitonin Lvl [0.00-0.10 <0.05 ng/mL 0.05 ng/mL ng/mL] (02/15/16 9:54 AM) (01/24/16 11:18 AM) 1Result Comment: The eGFR is calculated [...] 1 2 3 Total CK [12-191 unit/L] 206 unit/L 248 unit/L *HI* *HI* (01/21/16 2:36 AM) (01/20/16 9:26 PM) CK MB [0.5-3.6 ng/mL] 2.5 ng/mL 2.7 ng/mL (01/21/16 2:36 AM) (01/20/16 9:26 PM) CK MB Index [0.0-2.5] 1.2 1.1 (01/21/16 2:36 AM) (01/20/16 9:26 PM) Troponin-T [0.000-0.100 ng/mL] <0.010 ng/mL (01/20/16 9:26 PM) Troponin-I [0.00-0.40 ng/mL] <0.02 ng/mL <0.02 ng/mL (01/21/16 2:36 AM) (01/20/16 9:26 PM) BNP [<=100 pg/mL] 15 pg/mL (01/29/16 12:16 AM) PARATHYROID PROFILE Most recent to oldest 1 2 3 [Reference Range]: Ca Ion WB [1.05-1.25 mMol/L] 1.28 mMol/L 1.28 mMol/L 1.21 mMol/L *HI* *HI* (02/17/16 12:17 AM) (02/19/16 12:28 AM) (02/18/16 4:09 AM) Ca Norm WB [1.05-1.25 1.29 mMol/L 1.31 mMol/L 1.25 mMol/L mMol/L] *HI* *HI* (02/17/16 12:17 AM) (02/19/16 12:28 AM) (02/18/16 4:09 AM) DRUG SCREEN Most recent to oldest [Reference Range]: 1 2 3 U Amph Scr [Negative] Negative *NA* (01/21/16 7:31 PM) U Didi Scr [Negative] Negative *NA* (01/21/16 7:31 PM) U Benzodia Scr [Negative] Positive *ABN* (01/21/16 7:31 PM) U Cocaine Scr [Negative] Negative *NA* (01/21/16 7:31 PM) U Opiate Scr [Negative] Negative *NA* (01/21/16 7:31 PM) U Phencyc Scr [Negative] Negative *NA* (01/21/16 7:31 PM) U Cannab Scr [Negative] Negative *NA* (01/21/16 7:31 PM) UDS Note See Note (01/21/16 7:31 PM) URINE AND STOOL Most recent to oldest 1 2 3 [Reference Range]: UA Turbidity [Clear] Slight Clear Clear *ABN* (01/24/16 11:18 AM) (01/21/16 5:45 PM) (02/10/16 1:09 PM) UA Color [Yellow] Light Yellow Light Yellow Yellow *NA* *NA* *NA* (02/10/16 1:09 PM) (01/24/16 11:18 AM) (01/21/16 5:45 PM) UA pH [5.0-8.0] 6.5 7.0 6.0 (02/10/16 1:09 PM) (01/24/16 11:18 AM) (01/21/16 5:45 PM) UA Spec Grav [<=1.030] 1.008 1.003 1.009 (02/10/16 1:09 PM) (01/24/16 11:18 AM) (01/24/16 4:47 AM) UA Glucose [Negative Negative mg/dL Negative mg/dL Negative mg/dL mg/dL] *NA* *NA* *NA* (02/10/16 1:09 PM) (01/24/16 11:18 AM) (01/21/16 5:45 PM) UA Blood [Negative] Trace Trace Negative *ABN* *ABN* (01/21/16 5:45 PM) (02/10/16 1:09 PM) (01/24/16 11:18 AM) UA Ketones [Negative Negative mg/dL Negative mg/dL mg/dL] *NA* *NA* (02/10/16 1:09 PM) (01/24/16 11:18 AM) UA Ketones TR *NA* (01/21/16 5:45 PM) UA Protein [Negative 10 mg/dL Negative mg/dL 10 mg/dL mg/dL] *ABN* (01/24/16 11:18 AM) *ABN* (02/10/16 1:09 PM) (01/21/16 5:45 PM) UA Urobilinogen [0.1-1.0 <=1.0 mg/dL <=1.0 mg/dL <=1.0 mg/dL mg/dL] *NA* *NA* *NA* (02/10/16 1:09 PM) (01/24/16 11:18 AM) (01/21/16 5:45 PM) UA Bili [Negative] Negative Negative Negative *NA* *NA* *NA* (02/10/16 1:09 PM) (01/24/16 11:18 AM) (01/21/16 5:45 PM) UA Leuk Est [Negative] Large Negative Negative *ABN* (01/24/16 11:18 AM) (01/21/16 5:45 PM) (02/10/16 1:09 PM) UA Nitrite [Negative] Positive Negative Negative *ABN* (01/24/16 11:18 AM) (01/21/16 5:45 PM) (02/10/16 1:09 PM) UA WBC [0-5 /HPF] >182 /HPF 3 /HPF 6 /HPF *HI* (01/24/16 11:18 AM) *HI* (02/10/16 1:09 PM) (01/21/16 5:45 PM) UA RBC [0-2 /HPF] 6 /HPF 1 /HPF 1 /HPF *HI* (01/24/16 11:18 AM) (01/21/16 5:45 PM) (02/10/16 1:09 PM) UA Bacteria [None Seen Occasional /HPF /HPF] *NA* (02/10/16 1:09 PM) UA Bacteria Rare *NA* (01/20/16 9:26 PM) UA Sq Epi None Seen None Seen None Seen *NA* *NA* *NA* (02/10/16 1:09 PM) (01/24/16 11:18 AM) (01/21/16 5:45 PM) UA Amorph Kaylynn [None Seen Occasional /HPF Occasional /HPF /HPF] *NA* *ABN* (01/24/16 11:18 AM) (01/20/16 9:26 PM) UA Mucus [None Seen /LPF] Few /LPF Few /LPF *NA* *NA* (02/10/16 1:09 PM) (01/21/16 5:45 PM) BODY FLUIDS Most recent to oldest 1 2 3 [Reference Range]: Glucose CSF [45-80 60 mg/dL 82 mg/dL 80 mg/dL mg/dL] (02/02/16 12:33 PM) *HI* (01/24/16 11:18 AM) (01/24/16 11:18 AM) Protein CSF [15-45 70 mg/dL 1 75 mg/dL 2 174 mg/dL 3 mg/dL] *HI* *HI* *HI* (02/02/16 12:33 PM) (01/24/16 11:18 AM) (01/24/16 11:18 AM) Lactic Acid CSF 3.7 mMol/L [0.6-2.2 mMol/L] *HI* (01/24/16 11:18 AM) Tube Num CSF xxxxxxx xxxxxxx xxxxxxx (02/02/16 12:33 PM) (01/24/16 11:18 AM) (01/24/16 11:18 AM) Color CSF [Colorless] Xanthoch 4 Light Red Red *ABN* *ABN* *ABN* (02/02/16 12:33 PM) (01/24/16 11:18 AM) (01/24/16 11:18 AM) Clarity CSF [Clear] Slight Slight Moderate *ABN* *ABN* *ABN* (02/02/16 12:33 PM) (01/24/16 11:18 AM) (01/24/16 11:18 AM) Supernat CSF Xanthoch Hemolyzed Hemolyzed [Colorless] *ABN* *ABN* *ABN* (02/02/16 12:33 PM) (01/24/16 11:18 AM) (01/24/16 11:18 AM) RBC CSF [0-0 /mm3] 90 /mm3 880 /mm3 41926 /mm3 *HI* *HI* *HI* (02/02/16 12:33 PM) (01/24/16 11:18 AM) (01/24/16 11:18 AM) WBC CSF [0-5 /mm3] 2 /mm3 1 /mm3 15 /mm3 (02/02/16 12:33 PM) (01/24/16 11:18 AM) *HI* (01/24/16 11:18 AM) Segs CSF [0-6 %] 79 % *HI* (01/24/16 11:18 AM) Lymph CSF [40-80 %] 17 % *LOW* (01/24/16 11:18 AM) Eos CSF 1 % *NA* (01/24/16 11:18 AM) Monocyte CSF [15-45 %] 3 % *LOW* (01/24/16 11:18 AM) Comment CSF Differential not performed on WBC count of less than 5. *NA* (02/02/16 12:33 PM) 1Result Comment: "Significant Findings called to Abelardo Chau _at 02/02/2016 16 :48__by DH__.Read Back OK."2Result Comment: "Significant Findings called to jennifer de la cruz_at 01/24/2016 12:30__by idj__.ReadBack OK."3Result Comment: "Significant Findings called to jennifer de la cruz_at 01/24/2016 12:28__by idj__ .Read Back OK."4Result Comment: "Significant Findings called to blair cabrera_ at 02/02/2016 16:46___by aa___.Read Back OK."HEMATOLOGY Most recent to oldest 1 2 3 [Reference Range]: WBC [3.7-10.4 K/CMM] 7.2 K/CMM 8.3 K/CMM 8.3 K/CMM (02/17/16 12:17 AM) (02/16/16 1:35 AM) (02/14/16 4:41 AM) RBC [4.20-5.40 M/CMM] 2.93 M/CMM 2.79 M/CMM 2.79 M/CMM *LOW* *LOW* *LOW* (02/17/16 12:17 AM) (02/16/16 1:35 AM) (02/14/16 4:41 AM) Hgb [12.0-16.0 g/dL] 9.1 g/dL 9.0 g/dL 8.7 g/dL *LOW* *LOW* *LOW* (02/17/16:17 AM) (02/16/16 1:35 AM) (02/14/16 4:41 AM) Hct [36.0-48.0 %] 27.8 % 27.1 % 26.7 % *LOW* *LOW* *LOW* (02/17/16:17 AM) (02/16/16 1:35 AM) (02/14/16 4:41 AM) MCV [80.0-98.0 fL] 95.0 fL 97.1 fL 95.8 fL (02/17/16 12:17 AM) (02/16/16 1:35 AM) (02/14/16 4:41 AM) MCH [27.0-31.0 pg] 31.0 pg 32.1 pg 31.2 pg (02/17/16 12:17 AM) *HI* *HI* (02/16/16 1:35 AM) (02/14/16 4:41 AM) MCHC [32.0-36.0 g/dL] 32.6 g/dL 33.1 g/dL 32.6 g/dL (02/17/16 12:17 AM) (02/16/16 1:35 AM) (02/14/16 4:41 AM) RDW [11.5-14.5 %] 15.8 % 16.4 % 16.1 % *HI* *HI* *HI* (02/17/16 12:17 AM) (02/16/16 1:35 AM) (02/14/16 4:41 AM) Platelet [133-450 K/CMM] 338 K/CMM 344 K/CMM 357 K/CMM (02/17/16 12:17 AM) (02/16/16 1:35 AM) (02/14/16 4:41 AM) MPV [7.4-10.4 fL] 7.7 fL 8.1 fL 7.7 fL (02/17/16 12:17 AM) (02/16/16 1:35 AM) (02/14/16 4:41 AM) Segs [45.0-75.0 %] 57.8 % 62.0 % 58.9 % (02/17/16 12:17 AM) (02/16/16 1:35 AM) (02/14/16 4:41 AM) Lymphocytes [20.0-40.0 %] 32.4 % 27.3 % 29.7 % (02/17/16 12:17 AM) (02/16/16 1:35 AM) (02/14/16 4:41 AM) Monocytes [2.0-12.0 %] 7.1 % 7.7 % 8.3 % (02/17/16 12:17 AM) (02/16/16 1:35 AM) (02/14/16 4:41 AM) Eosinophils [0.0-4.0 %] 2.3 % 2.3 % 2.5 % (02/17/16 12:17 AM) (02/16/16 1:35 AM) (02/14/16 4:41 AM) Basophils [0.0-1.0 %] 0.4 % 0.7 % 0.6 % (02/17/16 12:17 AM) (02/16/16 1:35 AM) (02/14/16 4:41 AM) Segs-Bands # [1.5-8.1 4.2 K/CMM 5.1 K/CMM 4.9 K/CMM K/CMM] (02/17/16 12:17 AM) (02/16/16 1:35 AM) (02/14/16 4:41 AM) Lymphocytes # [1.0-5.5 2.3 K/CMM 2.3 K/CMM 2.4 K/CMM K/CMM] (02/17/16 12:17 AM) (02/16/16 1:35 AM) (02/14/16 4:41 AM) Monocytes # [0.0-0.8 0.5 K/CMM 0.6 K/CMM 0.7 K/CMM K/CMM] (02/17/16 12:17 AM) (02/16/16 1:35 AM) (02/14/16 4:41 AM) Eosinophils # [0.0-0.5 0.2 K/CMM 0.2 K/CMM 0.2 K/CMM K/CMM] (02/17/16 12:17 AM) (02/16/16 1:35 AM) (02/14/16 4:41 AM) Basophils # [0.0-0.2 0.1 K/CMM 0.1 K/CMM 0.1 K/CMM K/CMM] (02/16/16 1:35 AM) (02/10/16 3:34 AM) (02/09/16 5:59 AM) Polychrom SLIGHT *NA* (02/17/16 12:17 AM) Hypochrom [None Seen] 1+ (02/02/16 12:28 AM) Plt Morph Normal Normal Normal (02/02/16 12:28 AM) (01/27/16 1:35 AM) (01/26/16 12:16 AM) PT [12.0-14.7 seconds] 14.0 seconds 13.7 seconds 15.6 seconds (01/30/16 12:18 AM) (01/26/16 12:16 AM) *HI* (01/21/16 5:45 PM) INR [0.85-1.17] 1.05 1.02 1.21 (01/30/16 12:18 AM) (01/26/16 12:16 AM) *HI* (01/21/16 5:45 PM) PTT [22.9-35.8 seconds] 28.5 seconds 30.3 seconds 30.7 seconds (01/30/16 12:18 AM) (01/26/16 12:16 AM) (01/21/16 5:45 PM) ACT (TEG) Rapid [86-118 121 seconds seconds] *HI* (01/20/16 8:43 PM) Split Point Rapid 0.6 minutes *NA* (01/20/16 8:43 PM) R-time Rapid [0.4-0.7 0.8 minutes minutes] *HI* (01/20/16 8:43 PM) K-time Rapid [0.6-2.3 1.0 minutes minutes] (01/20/16 8:43 PM) Angle Rapid [64-80 76 degrees degrees] (01/20/16 8:43 PM) Max Amplitude Rapid 70 mm [52-71 mm] (01/20/16 8:43 PM) G-value Rapid [5.0-11.6 K 11.5 K d/sc d/sc] (01/20/16 8:43 PM) Estimated % Lysis Rapid 0.6 % [0.0-7.5 %] (01/20/16 8:43 PM) MOLECULAR DIAGNOSTIC Most recent to oldest [Reference Range]: 1 2 3 C difficile DNA [Negative] Negative (02/01/16 12:18 PM) BACTERIAL - SEROLOGY Most recent to oldest [Reference Range]: 1 2 3 MRSA by PCR Negative (01/21/16 12:14 AM) Immunizations Not Given Vaccine Date Status Refusal Reason pneumococcal 23-valent vaccine 01/22/16 Not Given Parent Or Guardian Refuses Procedures Procedure Date Related Diagnosis Body Site Selective catheter placement, vertebral artery, 02/05/16 unilateral, with angiography of the ipsilateral vertebral circulation and all associated radiological supervision and interpretation, includes angiography of the cervicocerebral arch, when performed Selective catheter placement, vertebral artery, 01/29/16 unilateral, with angiography of the ipsilateral vertebral circulation and all associated radiological supervision and interpretation, includes angiography of the cervicocerebral arch, when performed Selective catheter placement, vertebral artery, 01/27/16 unilateral, with angiography of the ipsilateral vertebral circulation and all associated radiological supervision and interpretation, includes angiography of the cervicocerebral arch, when performed Selective catheter placement, vertebral artery, 01/23/16 unilateral, with angiography of the ipsilateral vertebral circulation and all associated radiological supervision and interpretation, includes angiography of the cervicocerebral arch, when performed Selective catheter placement, vertebral artery, 01/21/16 unilateral, with angiography of the ipsilateral vertebral circulation and all associated radiological supervision and interpretation, includes angiography of the cervicocerebral arch, when performed 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 the last one was more than 12 years ago Social History Social History Type Response Smoking Status Current every day smoker; Type: Cigarettes; Tobacco use per day : 1; Number of years: .5; Previous treatment: None; Ready to change: No; Concerns about tobacco use in household: No; Exposure to Tobacco Smoke smokes; Cigarette Smoking Last 365 Days Yes; Reg Smoking Cessation Counseling No Assessment and Plan Extracted from: Title: Clinical Document Author: Leona Moraes MD Date: 02/05/16 EGS Progress Note Subjective: No acute events overnight Objective: Vitals Tmp(F) Pulse BP RR SpO2 FIO2 02/04 01:30 ---- 86 153/78 22 100 --- 02 01:15 ---- 87 137/73 21 100 --- 02/04 01:00 98.1 90 140/72 23 100 --- 02 00:45 ---- 87 137/68 19 100 --- 02 00:30 ---- 92 138/67 20 100 --- 24 Hr Tmax: 98.1F (36.72c) at 02/04 01:00 Vital Signs are the last 5 in the past 48 hours. General appearance: Well-developed, well-nourished appropriate for age, intubated. Skin: no rashes HEENT: normocephalic, neck without masses or lymphadenopathy. trach in place with blood tinged mucus/phlegm from trach Heart: regular rate and rhythm Vascular exam: 2+ pulses throughout Lungs: mechanical breathing bilaterally Abdomen: soft, distended, +pain, PEG in place Musculoskeletal: UTO 2/2 GCS 7T Neurological: GCS 7T Labs (Last four charted values) WBC H 11.6 (FEB 04) H 10.7 (FEB 03) H 11.5 (FEBRUARY 02) 9.2 (FEBRUARY 01) Hgb L 8.7 (FEB 04) L 8.2 (FEB 03) L 8.7 (FEBRUARY 02) L 8.4 (FEBRUARY 01 ) Hct L 26.2 (FEB 04) L 24.4 (FEB 03) L 25.9 (FEBRUARY 02) L 24.4 ( FEBRUARY 01) Plt H 493 (FEB 04) H 500 (FEB 03) H 514 (FEBRUARY 02) 446 (FEBRUARY 01) Na H 146 (FEB 04) H 147 (FEB 03) 143 (FEBRUARY 02) 145 (FEBRUARY 01) K L 3.1 (FEB 04) 3.8 (FEB 03) 3.5 (FEBRUARY 02) 3.5 (FEBRUARY 01) CO2 25 (FEB 04) 24 (FEB 03) 28 (FEBRUARY 02) 26 (FEBRUARY 01) Cl H 113 (FEB 04) H 113 (FEB 03) 108 (FEBRUARY 02) H 112 (FEBRUARY 01) Cr L 0.42 (FEB 04) 0.55 (FEB 03) L 0.44 (FEBRUARY 02) L 0.41 (FEBRUARY 01) BUN 15 (FEB 04) 15 (FEB 03) 13 (FEBRUARY 02) 13 (FEBRUARY 01) Glucose Random 97 (FEB 04) H 108 (FEB 03) H 126 (FEBRUARY 02) H 123 (FEBRUARY 01) Mg 2.0 (FEB 04) 2.2 (FEB 03) 2.3 (FEBRUARY 02) 2.1 (FEBRUARY 01) Phos 2.6 (FEB 04) 3.1 (FEB 03) 3.1 (FEBRUARY 02) L 2.2 (FEBRUARY 01) Ca L 7.8 (FEB 04) L 8.3 (FEB 03) 8.7 (FEBRUARY 02) L 8.1 (FEBRUARY 01) PT 14.0 (JANUARY 29) 13.7 (JANUARY 25) H 15.6 (JANUARY 20) 14.0 (JANUARY 20) INR 1.05 (JANUARY 29) 1.02 (JANUARY 25) H 1.21 (JANUARY 20) 1.05 (JANUARY 20) PTT 28.5 (JANUARY 29) 30.3 (JANUARY 25) 30.7 (JANUARY 20) 29.0 (JANUARY 20) Troponin <0.02 (JANUARY 20) <0.02 (JANUARY 19) CK MB 2.5 (JANUARY 20) 2.7 (JANUARY 19) Total CK H 206 (JANUARY 20) H 248 (JANUARY 19) Assessment: 50 yo Female with HTN, presents s/p hypertensive emergency with 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 ( start at 10 cc increased 20cc q4hrs till goal). EGS will remove trach dressing today. Will sign off. Please call [phone] for further questions. Leona Moraes MD PGY1, Urology Pager #[phone] Addendum by Riley Marshall MD on ATTENDING ATTESTATION: 02/05/2016 14:28 I have seen and examined the patient with the above provider (resident/fellow). Futhermore, I concur with their findings and plan as noted above.
--- OUTSIDE RECORDS SUMMARY | 2019-01-05 19:47 | XMS REPORT | Summary of Care ---
:1965 Author Organization [facility] Address [address] [place] [id number] Encounter [facility](WALLY) [id number] Date(s): 10/04/16 - 11/02/[address] [phone] Discharge Disposition: Home or Self Care Attending Physician: Gris Rogers MD Referring Physician: Gris Rogers MD Vital Signs Most recent to oldest 1 2 3 [Reference Range]: Blood Pressure [90-140/60-90 120/78 mmHg 97/64 mmHg 90/62 mmHg mmHg] (11/01/16 10:06 AM) (10/25/16 1:01 PM) (10/25/16 10:20 AM) Peripheral Pulse Rate [60-100 94 bpm bpm] (10/04/16 10:46 AM) Problem List Condition Effective Dates Status Health Status Informant Acute respiratory failure(Confirmed) Active Anemia(Confirmed) Active 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, cortical(Confirmed) Dysphagia(Confirmed) Active H/O tracheostomy(Confirmed) Active Hemiparesis affecting right side as Active late effect of stroke(Confirmed) HTN - Hypertension(Confirmed) Resolved Hypercapnia(Confirmed) Active Hypoxia(Confirmed) Active Metabolic encephalopathy(Confirmed) Active PEG - Percutaneous endoscopic Active gastrostomy catheter(Confirmed) Cognitive deficits following Active nontraumatic intracerebral hemorrhage(Confirmed) SAH - Subarachnoid Active hemorrhage(Confirmed) Stroke(Confirmed) Active Allergies, Adverse Reactions, Alerts Substance Reaction Severity Status Phenergan Phenergan Active Medications No data available [...] Counseling No 1denies Exercise Assessment and Plan No data available for this section
--- OUTSIDE RECORDS SUMMARY | 2019-01-05 19:47 | XMS REPORT | Summary of Care ---
:1965 Author Organization [facility] Address [address] [place] [phone] Encounter [facility](FIN) [id number] Date(s): 07/09/16 - 07/09/[address] Discharge Disposition: Home or Self Care Attending Physician: Tania Bradnt MD Referring Physician: Tania Brandt MD Vital Signs Most recent to oldest [Reference Range]: 1 Blood Pressure [90-140/60-90 mmHg] 104/59 mmHg (07/09/16 1:41 PM) Respiratory Rate [14-20 BRMIN] 20 BRMIN (07/09/16 1:41 PM) Peripheral Pulse Rate [60-100 bpm] 87 bpm (07/09/16 1:41 PM) Problem List Condition Effective Dates Status Health Status Informant Acute respiratory failure(Confirmed) Active Anemia(Confirmed) Active Carpal tunnel(Confirmed) Resolved Dysphagia(Confirmed) Active 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) Active HTN - Hypertension(Confirmed) Resolved Hypercapnia(Confirmed) Active Hypoxia(Confirmed) Active Metabolic encephalopathy(Confirmed) Active PEG - Percutaneous endoscopic Active gastrostomy catheter(Confirmed) SAH - Subarachnoid Active hemorrhage(Confirmed) Scar tissue(Confirmed)2 Resolved Stroke(Confirmed) Active 1four thoracic tumors, all [id number] lungs because of thoracic procedures Allergies, Adverse Reactions, Alerts Substance Reaction Severity Status Phenergan Phenergan Active Medications Cymbalta 30 mg oral delayed release capsule 30 mg=1 cap, PO, Daily, # 30 cap, 0 Refill(s) Start Date: 07/09/16 Status: Ordered Results No data available for [...] hazardous equipment: No. Alcohol Never Smoking Status Current every day smoker; Type: Cigarettes; Tobacco use per day : 1; Started at age: 17.0; Stopped at age: 51; Previous treatment: None; Ready to change: No; Concerns about tobacco use in household: No; Exposure to Tobacco Smoke smokes; Cigarette Smoking Last 365 Days Yes; Reg Smoking Cessation Counseling No 1denies Exercise Assessment and Plan No data available for this section
--- OUTSIDE RECORDS SUMMARY | 2019-01-05 19:47 | XMS REPORT | Summary of Care ---
:1965 Author Organization [facility] Address [address] [place] [id number] Encounter HQ Elijah_johanna(WALLY) [id number] Date(s): 04/15/16 - 05/20/[address] [phone] Discharge Disposition: Other Healthcare Facility Attending Physician: Juan Douglas MD Admitting Physician: Juan Douglas MD Vital Signs Most recent to oldest 1 2 3 [Reference Range]: Height 160.02 cm 160.02 cm 160.02 cm (05/10/16 4:20 PM) (04/30/16 8:13 AM) (04/15/16 6:32 PM) Current Weight 63.693 kg 62.818 kg 62.818 kg (05/14/16 5:37 PM) (05/10/16 4:20 PM) (05/07/16 2:04 PM) Temperature Oral [96.4-99.1 98.4 DegF 98 DegF 97.8 DegF DegF] (05/16/16 6:30 PM) (05/16/16 7:51 AM) (05/04/16 7:30 PM) Blood Pressure [90-140/60-90 111/67 mmHg 125/77 mmHg mmHg] (05/19/16 7:30 PM) (05/19/16 1:50 PM) Systolic Blood Pressure 118 mmHg [90-140 mmHg] (05/20/16 8:00 AM) Diastolic Blood Pressure 79 mmHg [60-90 mmHg] (05/20/16 8:00 AM) Respiratory Rate [14-20 BRMIN] 18 BRMIN 18 BRMIN 18 BRMIN (05/20/16 8:00 AM) (05/19/16 7:40 PM) (05/19/16 7:30 PM) Peripheral Pulse Rate [60-100 108 bpm 126 bpm 79 bpm bpm] *HI* *HI* (05/19/16 1:50 PM) (05/20/16 8:00 AM) (05/19/16 7:30 PM) Weight 62.818 kg 61.136 kg 60.864 kg (05/07/16 2:03 PM) (04/30/16 12:47 PM) (04/16/16 5:19 PM) Body Mass Index 23.71 m2 (04/15/16 6:32 PM) Problem List Condition Effective Dates Status Health Status Informant Acute respiratory failure(Confirmed) Active Anemia(Confirmed) Active Carpal tunnel(Confirmed) Resolved Dysphagia(Confirmed) Active 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) Active HTN - Hypertension(Confirmed) Resolved Hypercapnia(Confirmed) Active Hypoxia(Confirmed) Active Metabolic encephalopathy(Confirmed) Active PEG - Percutaneous endoscopic Active gastrostomy catheter(Confirmed) SAH - Subarachnoid Active hemorrhage(Confirmed) Scar tissue(Confirmed)2 Resolved Stroke(Confirmed) Active 1four thoracic tumors, all [id number] lungs because of thoracic procedures Allergies, Adverse Reactions, Alerts Substance Reaction Severity Status Phenergan Phenergan Active Medications acetaminophen 650 mg, 20.3 mL, Route: PO, Drug form: LIQ, Q6H, Dosing Weight 60.71, kg, PRN Pain 1-3/Temp > 100.4 F, Start date: 04/15/16 21:41:00 CDT, Stop date: 06/14/16 21:40:00 CDT Start Date: 04/15/16 Stop Date: 05/20/16 Status: Discontinuedacetaminophen 650 mg, PO, Q6H, 0 Refill(s) Start Date: 04/15/16 Stop Date: 05/19/16 Status: Discontinuedacetaminophen 0 Refill(s) Start Date: 04/15/16 Stop Date: 05/19/16 Status: Discontinuedacetaminophen 325 mg oral tablet 650 mg=2 tab, PO, Q6H, PRN for fever, # 120 tab, 0 Refill(s) Start Date: 05/19/16 Status: Orderedacetylcysteine 20% inhalation solution 400 mg, 2 mL, Route: NEB, Drug Form: SOLN, Dosing Weight 60.71, kg, TRQ12H, Start date: 04/15/16 21:53:00 CDT, Duration: 30 day, Stop date: 05/15/16 19:30: 00 CDT Start Date: 04/15/16 Stop Date: 05/06/16 Status: Discontinuedacetylcysteine 20% inhalation solution 4 mg=, INHALATION, TID, 0 Refill(s) Start Date: 04/15/16 Stop Date: 05/19/16 Status: Discontinuedalbuterol-ipratropium 2.5-0.5 mg inhalation solution 3 mL, Route: NEB, Drug Form: SOLN, Dosing Weight 60.71, kg, TRQ12H, Start date: 04/15/16 21:51:00 CDT, Duration: 30 day, Stop date: 05/15/16 19:30:00 CDT, Handheld Nebulizer Notes: (Same as: Jeff) Start Date: 04/15/16 Stop Date: 04/18/16 Status: Discontinuedalbuterol-ipratropium 2.5-0.5 mg inhalation solution 3 mL, Route: NEB, Drug Form: SOLN, Dosing Weight 60.71, kg, TRQ4H, Start date: 04/18/16 15:30:00 CDT, Duration: 30 day, Stop date: 05/18/16 11:30:00 CDT, Handheld Nebulizer Notes: (Same as: Jeff) Start Date: 04/18/16 Stop Date: 04/28/16 Status: Discontinuedamantadine 100 mg, 1 cap, Route: PO, Drug form: CAP, BID-03-16, Dosing Weight 60.71, kg, Start date: 04/16/16 7:00:00 CDT, Duration: 30 day, Stop date: 05/15/16 12:00: 00 CDT Notes: (Same as: Warren) Start Date: 04/16/16 Stop Date: 04/29/16 Status: Discontinuedamantadine 50 mg, 5 mL, Route: PO, Drug form: SYRP, BID-03-16, Dosing Weight 60.71, kg, Start date: 04/30/16 7:00:00 CDT, Duration: 60 day, Stop date: 06/28/16 12:00: 00 CDT Notes: (Same as: Symmetrel) Start Date: 04/30/16 Stop Date: 05/04/16 Status: Discontinuedamantadine 100 mg oral tablet 100 mg=1 tab, PO, Daily, AC LUNCH -- noon, 0 Refill(s) Start Date: 04/15/16 Stop Date: 05/19/16 Status: DiscontinuedArtificial Tears Route: BOTH EYES, Q6H, Drug form: SOLN, Start date: 04/16/16 0:00:00 CDT, Duration: 30 day, Stop date: 05/15/16 18:00:00 CDT Notes: Same as: Refresh Celluvisc Non-Formulary Start Date: 04/16/16 Stop Date: 05/05/16 Status: DiscontinuedArtificial Tears 2 drops, BOTH EYES, Q6H, 0 Refill(s) Start Date: 04/15/16 Stop Date: 05/19/16 Status: Discontinuedatorvastatin 40 mg oral tablet 40 mg=1 tab, PO, Bedtime, # 30 tab, 0 Refill(s) Start Date: 05/19/16 Status: OrderedBactrim DS 800 mg- 160 mg oral tablet 1 tab, Route: PO, Drug Form: TAB, Dosing Weight 61.136, kg, Q12H, Start date: 18:00:00 CDT,Duration: 7 day, Stop date: 05/13/16 9:00:00 CDT Notes: One DS tablet=trimethoprim 160mg + sulfamethoxazole 800 mgDose based on trimethoprim component On empty stomach with a glass of water. 1 hr before meals (Same As: Bactrim DS, Septra DS) Start Date: 05/06/16 Stop Date: 05/09/16 Status: Discontinuedbisacodyl 10 mg, 1 supp, Route: KY, Drug form: SUPP, Daily, Dosing Weight 60.71, kg, PRN Constipation, Start date: 04/15/16 21:42:00 CDT, Stop date: 06/14/16 21:41:00 CDT Notes: (Same As: Dulcolax, Bisco-Lax) Start Date: 04/15/16 Stop Date: 05/20/16 Status: Discontinuedbisacodyl 10 mg, 1 supp, Route: KY, Drug form: SUPP, ONCE, Dosing Weight 61.136, kg, Start date: 05/06/16 20:00:00 CDT, Stop date: 05/06/16 20:00:00 CDT Notes: (Same As: Dulcolax, Bisco-Lax) Start Date: 05/06/16 Stop Date: 05/06/16 Status: Completedbisacodyl 10 mg rectal suppository 10 mg=1 supp, [place], Daily, PRN Constipation Start Date: 04/15/16 Stop Date: 05/19/16 Status: Discontinuedbudesonide 0.5 mg/2 mL inhalation suspension 0.5 mg=2 mL, NEB, BID, # 120 mL, 0 Refill(s) Start Date: 05/19/16 Status: Orderedbudesonide 0.5 mg/2 mL inhalation suspension 0.5 mg, 2 mL, Route: NEB, Drug form: SUSP, BID, Dosing Weight 60.864, kg, Start date: 04/20/16 21:00:00 CDT, Duration: 60 day, Stop date: 06/19/16 8:30:00 CDT Notes: (Same As: Pulmicort) Start Date: 04/20/16 Stop Date: 05/20/16 Status: Discontinuedcefepime + sodium chloride 0.9% INJ 100 mL 1 gm, Route: IVPB, Q8H, Dosing Weight 62.818, kg, (CrCl >/=50 ml/min), Start date: 05/09/16 14:00:00 CDT, Duration: 10 day, Stop date: 05/19/16 6:00:00 CDT Notes: (Same As: Maxipime) MEDICATION WASTE Product Size: 1000 mgProduct Wasted: ___ mg Start Date: 05/09/16 Stop Date: 05/10/16 Status: DiscontinuedcefTAZidime + sodium chloride 0.9% 100 mL INJ (for IV set) 100 mL 500 mg, Route: IV, Drug form: PDR/INJ, Q12H, Start date: 05/10/16 21:00:00 CDT, Stop date: 05/15/16 9:00:00 CDT Notes: (Same As: Fortaz, Tazidime) Start Date: 05/10/16 Stop Date: 05/14/16 Status: Discontinueddocusate sodium 100 mg oral capsule 100 mg=1 cap, PO, Q12H, 0 Refill(s) Start Date: 04/15/16 Stop Date: 05/19/16 Status: Discontinueddocusate sodium 100 mg oral capsule 100 mg=1 cap, PO, Q12H, # 60 cap, 2 Refill(s) Start Date: 05/19/16 Status: Ordereddocusate sodium 100 mg oral capsule 100 mg, 1 cap, Route: PO, Drug form: CAP, Q12H, Dosing Weight 60.71, kg, Start date: 04/16/16 9:00:00 CDT, Stop date: 06/14/16 21:00:00 CDT Start Date: 04/16/16 Stop Date: 05/20/16 Status: Discontinueddoxycycline 100 mg, 1 tab, Route: PO, Drug form: TAB, BID, Dosing Weight 60.71, kg, Start date: 04/16/16 8:30:00CDT, Duration: 3 day, Stop date: 04/18/16 21:00:00 CDT Start Date: 04/16/16 Stop Date: 04/18/16 Status: Completeddoxycycline 100 mg, PO, BID, 0 Refill(s) Start Date: 04/15/16 Stop Date: 05/19/16 Status: DiscontinuedFleet Enema 133 mL, Route: KY, Drug Form: DAR, Dosing Weight 60.864, kg, ONCE, Start date: 04/20/16 20:00:00 CDT, Stop date: 04/20/16 20:00:00 CDT, For Constipation > 12 years, Pediatric Dosing Start Date: 04/20/16 Stop Date: 04/20/16 Status: CompletedFleet Enema 133 mL, Route: KY, Drug Form: DAR, Dosing Weight 60.864, kg, ONCE, Start date: 04/23/16 13:56:00 CDT, Stop date: 04/23/16 13:56:00 CDT, For Constipation > 12 years, Pediatric Dosing Start Date: 04/23/16 Stop Date: 04/23/16 Status: CompletedFleet Enema 133 mL, Route: KY, Drug Form: DAR, Dosing Weight 60.71, kg, ONCE, Start date: 04/16/16 20:00:00 CDT, Stop date: 04/16/16 20:00:00 CDT, For Constipation > 12 years, Pediatric Dosing Start Date: 04/16/16 Stop Date: 04/16/16 Status: CompletedguaiFENesin 10 mg, PO, Q6H, PRN Cough/Congestion, 0 Refill(s) Start Date: 04/15/16 Stop Date: 05/19/16 Status: DiscontinuedguaiFENesin 200 mg, 10 mL, Route: PO, Drug form: SYRP, Q6H, Dosing Weight 60.71, kg, PRN Cough/Congestion, Startdate: 04/15/16 21:43:00 CDT, Stop date: 06/14/16 21:42: 00 CDT Notes: (Same as: Sebastiensin) Start Date: 04/15/16 Stop Date: 05/20/16 Status: DiscontinuedguaiFENesin 600 mg, 1 tab, Route: PO, Drug form: ERTAB, Q12H, Dosing Weight 60.864, kg, Start date: 04/28/16 21:00:00 CDT, Duration: 7 day, Stop date: 05/05/16 9:00:00 CDT Notes: (Same as: Guaifenesin LA, Humibid LA, Mucinex)"Do Not Crush" Take medication with plenty of water. Start Date: 04/28/16 Stop Date: 05/05/16 Status: Completedheparin 5,000 unit, 1 mL, Route: SUB-Q, Drug form: INJ, Q8H, Dosing Weight 60.71, kg, Start date: 04/16/16 0:00:00 CDT, Duration: 30 day, Stop date: 05/15/16 16:00: 00 CDT Start Date: 04/16/16 Stop Date: 04/28/16 Status: Discontinuedheparin 5,000 unit, 1 mL, Route: SUB-Q, Drug form: INJ, Q8H, Dosing Weight 60.71, kg, Start date: 04/28/16 16:00:00 CDT, Duration: 2 doses or times, Stop date: 0:00:00 CDT Notes: porcine heparin Start Date: 04/28/16 Stop Date: 04/29/16 Status: Completedheparin 5000 units/0.5 mL injectable solution SUB-Q, Q8H, 0 Refill(s) Start Date: 04/15/16 Stop Date: 05/19/16 Status: DiscontinuedhydrALAZINE 25 mg, 1 tab, Route: PO, Drug form: TAB, Q6H, Dosing Weight 60.864, kg, PRN Elevated BP, give for SBP >160 or DBP >95, Start date: 04/29/16 13:04:00 CDT, Duration: 30 day, Stop date: 05/29/16 13:03:00 CDT Notes: (Same as: Apresoline) May interfere w/enteral feedings Take With Food. Start Date: 04/29/16 Stop Date: 05/20/16 Status: Discontinuedinsulin aspart SUB-Q, Q6H, 0 Refill(s) Start Date: 04/15/16 Stop Date: 05/19/16 Status: Discontinuedipratropium 0.02% inhalation solution 500 microgram, 2.5 mL, Route: NEB, Drug form: SOLN, TRQ4H, Dosing Weight 60.864 , kg, Start date: 04/19/16 13:16:00 CDT, Duration: 30 day, Stop date: 05/19/16 11:30:00 CDT Notes: SEE RT DOCUMENTATION(Same as:Atrovent) Start Date: 04/19/16 Stop Date: 04/20/16 Status: Discontinuedipratropium 0.02% inhalation solution 500 microgram=2.5 mL, NEB, TRBID, # 150 mL, 0 Refill(s) Start Date: 05/19/16 Status: Orderedipratropium 0.02% inhalation solution 500 microgram, 2.5 mL, Route: NEB, Drug form: SOLN, TRQ6H, Dosing Weight 60.864 , kg, Start date: 04/20/16 7:30:00 CDT, Duration: 60 day, Stop date: 06/19/16 1: 30:00 CDT Notes: SEE RT DOCUMENTATION(Same as:Atrovent) Start Date: 04/20/16 Stop Date: 05/06/16 Status: Discontinuedipratropium 0.02% inhalation solution 600 microgram=3 mL, NEB, TID, 0 Refill(s) Start Date: 04/15/16 Stop Date: 05/19/16 Status: Discontinuedipratropium 0.02% inhalation solution 500 microgram, 2.5 mL, Route: NEB, Drug form: SOLN, TRBID, Dosing Weight 60.864 , kg, Start date: 05/06/16 19:30:00 CDT, Duration: 60 day, Stop date: 07/05/16 7 :30:00 CDT Notes: SEE RT DOCUMENTATION(Same as:Atrovent) Start Date: 05/06/16 Stop Date: 05/20/16 Status: Discontinuedlevalbuterol 0.63 mg/3 mL inhalation solution 0.63 mg=3 mL, NEB, TRBID, # 180 mL, 0 Refill(s) Start Date: 05/19/16 Status: OrderedlevETIRAcetam 1,500 mg, Route: IV, Drug form: INJ, PRN, Dosing Weight 60.71, kg, PRN Seizure, Start date: 04/15/1621:37:00 CDT, Stop date: 06/14/16 21:36:00 CDT Notes: Same as KeppraMix with 100 mL NS, LR or D5W MEDICATION WASTE Product Size: 500 mgProduct Wasted: __0_ mg Start Date: 04/15/16 Stop Date: 05/20/16 Status: DiscontinuedlevETIRAcetam 500 mg oral tablet 500 mg, 1 tab, Route: PO, Drug form: TAB, Q12H, Dosing Weight 60.71, kg, Start date: 04/16/16 9:00:00 CDT, Duration: 30 day, Stop date: 05/15/16 21:00:00 CDT Notes: (Same as:Keppra) Start Date: 04/16/16 Stop Date: 04/26/16 Status: DiscontinuedlevETIRAcetam 500 mg oral tablet 500 mg=1 tab, PO, Q12H, 0 Refill(s) Start Date: 04/15/16 Stop Date: 05/19/16 Status: DiscontinuedlevETIRAcetam 500 mg oral tablet 250 mg, 1 tab, Route: PO, Drug form: TAB, Q12H, Dosing Weight 60.71, kg, Start date: 04/26/16 21:00:00 CDT, Duration: 30 day, Stop date: 05/26/16 9:00:00 CDT Notes: (Same as:Hang) Start Date: 04/26/16 Stop Date: 04/28/16 Status: DiscontinuedlevETIRAcetam 500 mg oral tablet 250 mg, 1 tab, Route: PO, Drug form: TAB, Q12H, Dosing Weight 60.71, kg, Start date: 04/28/16 21:00:00 CDT, Duration: 3 doses or times, Stop date: 04/29/16 21: 00:00 CDT Notes: (Same as:Hang) Start Date: 04/28/16 Stop Date: 04/29/16 Status: Completedlevothyroxine 75 mcg (0.075 mg) oral tablet 75 microgram=1 tab, PO, Q630AM, # 30 tab, 0 Refill(s) Start Date: 05/19/16 Status: Orderedlidocaine 1% 5 mL, Route: INTRADERM, Drug Form: INJ, Dosing Weight 60.864, kg, ONCALL, Start date: 04/25/16 12:00:00 CDT, Duration: 1 doses or times, Stop date: 05/23/16 0: 00:00 CDT Notes: (Same as: Xylocaine) Start Date: 04/25/16 Stop Date: 05/20/16 Status: DiscontinuedLidoderm 5% topical film (patch) 1 patch, Route: TOP, Daily, Drug form: FILM, Start date: 04/19/16 9:04:00 CDT, Stop date: 06/18/16 8:30:00 CDT, Remove after 12 hours Notes: Apply only once for up to 12 hours in [id number] period (12 hours on and 12 hours off).(Same as: Lidoderm)"Remove old patch before application of new patch" Start Date: 04/19/16 Stop Date: 04/20/16 Status: DiscontinuedLidoderm 5% topical film (patch) 1 patch, Route: TOP, Daily, Drug form: FILM, Start date: 04/21/16 8:30:00 CDT, Stop date: 05/20/16 8:30:00 CDT, Remove after 12 hours Notes: Apply only once for up to 12 hours in [id number] period (12 hours on and 12 hours off).(Same as: Lidoderm)"Remove old patch before application of new patch" Start Date: 04/21/16 Stop Date: 04/26/16 Status: DiscontinuedLipitor 40 mg, 1 tab, Route: PO, Drug form: TAB, Bedtime, Start date: 04/26/16 21:00:00 CDT, Duration: 30 day, Stop date: 05/25/16 21:00:00 CDT Notes: (Same as: Lipitor) Start Date: 04/26/16 Stop Date: 05/20/16 Status: DiscontinuedLipitor 20 mg, 1 tab, Route: PO, Drug form: TAB, Bedtime, Start date: 04/19/16 21:00:00 CDT, Duration: 30 day, Stop date: 05/18/16 21:00:00 CDT Notes: (Same As: Lipitor) Start Date: 04/19/16 Stop Date: 04/26/16 Status: Discontinuedloratadine 10 mg, 1 tab, Route: PO, Drug form: TAB, Before Breakfast, Dosing Weight 60.71, kg, Start date: 04/16/16 7:30:00 CDT, Duration: 30 day, Stop date: 05/15/16 7:30 :00 CDT Start Date: 04/16/16 Stop Date: 04/20/16 Status: Discontinuedloratadine 10 mg oral tablet 10 mg=1 tab, PO, Daily, 0 Refill(s) Start Date: 04/15/16 Stop Date: 05/19/16 Status: DiscontinuedLORazepam 2 mg, 1 mL, Route: IVP, Drug form: INJ, PRN, Dosing Weight 60.71, kg, PRN Seizure, Start date: 04/15/16 21:37:00 CDT, Stop date: 06/14/16 21:36:00 CDT Notes: (Same as: Ativan) Start Date: 04/15/16 Stop Date: 05/11/16 Status: DiscontinuedLovenox 40 mg, 0.4 mL, Route: SUB-Q, Drug form: INJ, Daily, Dosing Weight 60.864, kg, Start date: 04/29/16 8:30:00 CDT, Duration: 60 day, Stop date: 06/27/16 8:30:00 CDT Notes: (Same as: Lovenox) Start Date: 04/29/16 Stop Date: 05/20/16 Status: Discontinuedmelatonin 3 mg oral tablet 3 mg, 1 tab, Route: PO, Drug Form: TAB, Dosing Weight 60.864, kg, Q8PM, Start date: 04/19/16 20:00:00 CDT, Duration: 60 day, Stop date: 06/17/16 20:00:00 CDT Notes: (Same as: Melatonin) Start Date: 04/19/16 Stop Date: 04/22/16 Status: Discontinuedmetoprolol tartrate 50 mg, 1 tab, Route: PO, Drug form: TAB, Q12H, Dosing Weight 60.864, kg, hold for SBP < 110 or P <60, Start date: 04/28/16 21:00:00 CDT, Duration: 30 day, Stop date: 05/28/16 9:00:00 CDT Notes: (Same as: Lopressor) Start Date: 04/28/16 Stop Date: 05/20/16 Status: Discontinuedmetoprolol tartrate 25 mg, 1 tab, Route: PO, Drug form: TAB, Q12H, Dosing Weight 60.864, kg, hold for SBP < 110 or P <60, Start date: 04/17/16 21:00:00 CDT, Duration: 30 day, Stop date: 05/17/16 9:00:00 CDT Notes: (Same as: Lopressor) Start Date: 04/17/16 Stop Date: 04/28/16 Status: Discontinuedmetoprolol tartrate 50 mg oral tablet 50 mg=1 tab, PO, Q12H, # 60 tab, 0 Refill(s) Start Date: 05/19/16 Status: Orderedmiconazole 200 mg vaginal suppository 1 supp, Route: VAG, Bedtime, Drug form: SUPP, Start date: 04/20/16 21:00:00 CDT , Duration: 3 day, Stop date: 04/22/16 21:00:00 CDT Start Date: 04/20/16 Stop Date: 04/20/16 Status: Canceledmidazolam 5 mg, 1 mL, Route: IM, Drug form: SOLN, PRN, Dosing Weight 62.818, kg, PRN Seizure, Start date: 05/11/16 11:35:00 CDT, Stop date: 06/10/16 11:34:00 CDT Notes: (Same as: Versed)Max dose 5 mg for patients </=40 kg. 10 mg for patients > 40 kg Start Date: 05/11/16 Stop Date: 05/20/16 Status: DiscontinuedMilk of Magnesia 60 ml, Route: PO, Drug Form: SUSP, Dosing Weight 60.864, kg, ONCE, Start date: 04/23/16 10:54:00 CDT, Stop date: 04/23/16 10:54:00 CDT Notes: (Same as: Milk of Magnesia, MOM) Start Date: 04/23/16 Stop Date: 04/23/16 Status: DiscontinuedMilk of Magnesia 60 ml, Route: PO, Drug Form: SUSP, Dosing Weight 60.864, kg, ONCE, Start date: 04/20/16 18:00:00 CDT, Stop date: 04/20/16 18:00:00 CDT Notes: (Same as: Milk of Magnesia, MOM) Start Date: 04/20/16 Stop Date: 04/20/16 Status: CompletedMilk of Magnesia 60 ml, Route: PO, Drug Form: SUSP, Dosing Weight 61.136, kg, ONCE, Start date: 05/06/16 16:00:00 CDT, Stop date: 05/06/16 16:00:00 CDT Notes: (Same as: Milk of Magnesia, MOM) Start Date: 05/06/16 Stop Date: 05/06/16 Status: CompletedMilk of Magnesia 60 ml, Route: PO, Drug Form: SUSP, Dosing Weight 60.71, kg, ONCE, Start date: 17:00:00 CDT,Stop date: 04/16/16 17:00:00 CDT Notes: (Same as: Milk of Magnesia, MOM) Start Date: 04/16/16 Stop Date: 04/16/16 Status: Completedmirtazapine 15 mg, 1 tab, Route: PO, Drug form: TAB, Bedtime, Dosing Weight 60.864, kg, Start date: 04/22/16 21:00:00 CDT, Duration: 30 day, Stop date: 06/20/16 21:00: 00 CDT Notes: (Same as:Remeron) Start Date: 04/22/16 Stop Date: 05/20/16 Status: Discontinuedmirtazapine 15 mg oral tablet 15 mg=1 tab, PO, Bedtime, # 30 tab, 0 Refill(s) Start Date: 05/19/16 Status: Orderedmodafinil 100 mg, PO, BID, to be given at 7am - 12am, 0 Refill(s) Start Date: 04/15/16 Stop Date: 05/19/16 Status: Discontinuedmodafinil 100 mg, 1 tab, Route: PO, Drug form: TAB, Daily, Dosing Weight 60.71, kg, Start date: 04/28/16 8:30:00 CDT, Duration: 3 day, Stop date: 04/30/16 8:30:00 CDT Notes: (Same as:Provigil) Start Date: 04/28/16 Stop Date: 04/29/16 Status: Discontinuedmodafinil 100 mg, 1 tab, Route: PO, Drug form: TAB, BID-03-16, Dosing Weight 60.71, kg, Start date: 04/16/16 7:00:00 CDT, Duration: 30 day, Stop date: 05/15/16 12:00: 00 CDT Notes: (Same as:Provigil) Start Date: 04/16/16 Stop Date: 04/27/16 Status: Discontinuedmodafinil 100 mg oral tablet 100 mg=1 tab, PO, BID, 0 Refill(s) Start Date: 04/15/16 Stop Date: 05/19/16 Status: DiscontinuedNeutra-Phos 1 pkt, Route: PO, Drug Form: PDR/REC, Dosing Weight 60.864, kg, BID-Meals, Start date: 04/20/16 17:00:00 CDT, Duration: 60 day, Stop date: 06/19/16 8:00: 00 CDT Notes: Same as: Phos-NakMix 1 packet with 75 mL water or juice. Each packet has 160mg of sodium, 280mg of potassium, and 250mg of phosphorusNon-Formulary Item Start Date: 04/20/16 Stop Date: 05/06/16 Status: DiscontinuedNorco 5/325 oral tablet 1 tab, Route: PO, Drug Form: TAB, Dosing Weight 60.864, kg, ONCE, Start date: 12:02:00 CDT,Stop date: 04/27/16 12:02:00 CDT Notes: (Same as: [place] 325/5) Do not exceed 4gm/day of acetaminophen. Start Date: 04/27/16 Stop Date: 04/27/16 Status: CompletedNorco 5/325 oral tablet 1 tab, Route: PO, Dosing Weight 60.864, kg, BID-03-16, Start date: 04/28/16 12: 00:00 CDT, Duration: 30 day, Stop date: 05/28/16 7:00:00 CDT Start Date: 04/28/16 Stop Date: 04/28/16 Status: CanceledNorco 5/325 oral tablet 1 tab, Route: PO, Drug Form: TAB, Dosing Weight 60.864, kg, TID, Start date: 12:00:00 CDT, Duration: 30 day, Stop date: 05/28/16 7:00:00 CDT Notes: (Same as: [place] 325/5) Do not exceed 4gm/day of acetaminophen. Start Date: 04/28/16 Stop Date: 05/20/16 Status: DiscontinuedNorco 5/325 oral tablet 1 tab, PO, TID, PRN Pain Score 7-10, # 90 tab, 0 Refill(s) Start Date: 05/19/16 Status: OrderedOmnipaque 350mg/ml 100 mL, Route: IVP, Drug Form: SOLN, Dosing Weight 60.864, kg, ONCALL, STAT, Start date: 04/23/16 17:04:00 CDT, Duration: 1 doses or times, Dose=2.2ml/kg, Max dusd=370pp -- "To be infused by RadiologyStaff ONLY" Notes: (same as:Omnipaque 350).WASTE: F/P - Black; E - Municipal Trash Bin Start Date: 04/23/16 Stop Date: 04/25/16 Status: Completedpantoprazole 40 mg, 1 tab, Route: PO, Drug form: ECTAB, Before Dinner, Dosing Weight 60.71, kg, Start date: 04/16/16 16:30:00 CDT, Duration: 30 day, Stop date: 05/15/16 16: 30:00 CDT Start Date: 04/16/16 Stop Date: 04/22/16 Status: Discontinuedpantoprazole 40 mg oral enteric coated tablet 40 mg=1 tab, PO, Daily, 0 Refill(s) Start Date: 04/15/16 Stop Date: 05/19/16 Status: DiscontinuedPepcid 20 mg oral tablet 20 mg, 1 tab, Route: PO, Drug form: TAB, Q12H, Dosing Weight 62.818, kg, Start date: 05/18/16 21:00:00 CDT, Duration: 30 day, Stop date: 06/17/16 9:00:00 CDT Notes: (Same as: Pepcid) Start Date: 05/18/16 Stop Date: 05/20/16 Status: DiscontinuedPepcid 20 mg oral tablet 20 mg=1 tab, PO, Q12H, # 60 tab, 0 Refill(s) Start Date: 05/19/16 Stop Date: 06/18/16 Status: Orderedpolyethylene glycol 3350 17 gm, 1 pkt, Route: PO, Drug form: PWDR, Daily, Dosing Weight 60.71, kg, Start date: 04/16/16 8:30:00 CDT, Stop date: 06/14/16 8:30:00 CDT Start Date: 04/16/16 Stop Date: 05/20/16 Status: Discontinuedpolyethylene glycol 3350 17 gm, PO, Daily, 0 Refill(s) Start Date: 04/15/16 Stop Date: 05/19/16 Status: Discontinuedpolyethylene glycol 3350 oral powder for reconstitution 17 gm, PO, Daily, # 527 gm, 0 Refill(s) Start Date: 05/19/16 Status: Orderedpotassium chloride 60 mEq, 3 tab, Route: PO, Drug form: ERTAB, ONCE, Dosing Weight 60.864, kg, Start date: 04/16/16 19:47:00 CDT, Stop date: 04/16/16 19:47:00 CDT Notes: (Same as: K-Dur 20)"Do Not Crush" With food and full glass of water Start Date: 04/16/16 Stop Date: 04/16/16 Status: Completedremove patch 1 patch, Route: TOP, Bedtime, Drug form: ERFILM, Start date: 04/19/16 21:00:00 CDT, Stop date: 06/17/16 21:00:00 CDT Notes: Remove patch 12 hours after application each day. Start Date: 04/19/16 Stop Date: 05/06/16 Status: DiscontinuedRobitussin 100 mg/5 mL oral liquid 200 mg=10 mL, PO, Q6H, PRN Cough/Congestion, # 240 mL, 0 Refill(s) Start Date: 05/19/16 Stop Date: 06/18/16 Status: OrderedSaline Flush 0.9% 5 ml, Route: IVP, Drug Form: INJ, Dosing Weight 60.864, kg, QSHIFT, PRN Line Flush, Start date: 04/23/16 16:56:00 CDT, Duration: 30 day, Stop date: 05/23/16 16:55:00 CDT Notes: (Same as: BD Posiflush) Start Date: 04/23/16 Stop Date: 04/28/16 Status: DiscontinuedSaline Flush 0.9% 10 mL, Route: IVP, Drug Form: INJ, Dosing Weight 60.71, kg, PRN, PRN Line Flush , Start date: 04/15/16 21:37:00 CDT, Duration: 30 day, Stop date: 05/15/16 21:36 :00 CDT Notes: (Same as: BD Posiflush) Start Date: 04/15/16 Stop Date: 04/26/16 Status: DiscontinuedSaline Flush 0.9% 10 mL, Route: IVP, Drug Form: INJ, Dosing Weight 60.864, kg, PRN, PRN Line Flush , Start date: 04/25/16 11:26:00 CDT, Duration: 60 day, Stop date: 06/24/16 11:25 :00 CDT Notes: (Same as: BD Posiflush) Start Date: 04/25/16 Stop Date: 05/20/16 Status: DiscontinuedSaline Flush 0.9% 10 mL, Route: IVP, Drug Form: INJ, Dosing Weight 60.864, kg, Q8H, Start date: 16:00:00 CDT,Duration: 60 day, Stop date: 06/24/16 8:00:00 CDT Notes: (Same as: BD Posiflush) Start Date: 04/25/16 Stop Date: 05/05/16 Status: Discontinuedsenna 8.6 mg oral tablet 8.6 mg, 1 tab, Route: PO, Drug Form: TAB, Dosing Weight 60.71, kg, QNoon, Start date: 04/16/16 12:00:00 CDT, Duration: 30 day, Stop date: 05/15/16 12:00:00 CDT Notes: (Same as: Curt) Start Date: 04/16/16 Stop Date: 04/23/16 Status: Discontinuedsenna 8.6 mg oral tablet 17.2 mg, 2 tab, Route: PO, Drug Form: TAB, Dosing Weight 60.71, kg, QNoon, Start date: 04/23/16 12:00:00 CDT, Duration: 60 day, Stop date: 06/21/16 12:00: 00 CDT Notes: (Same as: Curt) Start Date: 04/23/16 Stop Date: 05/20/16 Status: Discontinuedsenna 8.6 mg oral tablet 8.6 mg, 1 tab, Route: PO, Drug Form: TAB, Dosing Weight 60.71, kg, Daily, Start date: 04/16/16 8:30:00 CDT, Duration: 30 day, Stop date: 05/15/16 8:30:00 CDT Start Date: 04/16/16 Stop Date: 04/15/16 Status: Canceledsenna 8.6 mg oral tablet 17.2 mg=2 tab, PO, QNoon, # 60 tab, 0 Refill(s) Start Date: 05/19/16 Status: OrderedSenna-gen 8.6 mg oral tablet 8.6 mg=1 tab, PEG, Daily, PRN for constipation Start Date: 04/15/16 Stop Date: 04/15/16 Status: Discontinuedsertraline 50 mg, 1 tab, Route: PO, Drug form: TAB, Daily, Dosing Weight 60.864, kg, Start date: 04/27/16 8:30:00 CDT, Duration: 60 day, Stop date: 06/25/16 8:30:00 CDT Notes: (Same as: Zoloft) Start Date: 04/27/16 Stop Date: 05/20/16 Status: Discontinuedsertraline 50 mg oral tablet 50 mg=1 tab, PO, Daily, # 30 tab, 0 Refill(s) Start Date: 05/19/16 Status: Orderedsimethicone 40 mg, 0.5 tab, Route: PO, Drug form: CHEWTAB, Q6H, Dosing Weight 60.71, kg, PRN Gas, Start date: 04/15/16 21:46:00 CDT, Duration: 30 day, Stop date: 21:45:00 CDT Notes: (Same as: Mylicon) Start Date: 04/15/16 Stop Date: 04/28/16 Status: Discontinuedsimethicone 40 mg, PO, Q6H, PRN gas, 0 Refill(s) Start Date: 04/15/16 Stop Date: 05/19/16 Status: Discontinuedsimvastatin 40 mg, 1 tab, Route: PO, Drug form: TAB, Bedtime, Dosing Weight 60.864, kg, Start date: 04/17/16 21:00:00 CDT, Duration: 60 day, Stop date: 06/15/16 21:00: 00 CDT Notes: (Same as: Zocor) Start Date: 04/17/16 Stop Date: 04/19/16 Status: Voided With ResultsSodium Chloride 3% inhalation solution 3 mL, Route: NEB, Drug Form: SOLN, Dosing Weight 60.864, kg, RQ4H, Start date: 04/18/16 11:00:00 CDT, Stop date: 06/17/16 7:00:00 CDT Notes: SEE RT DOCUMENTATION (Same as: Hypertonic Saline 3%, Inhalation) Start Date: 04/18/16 Stop Date: 04/18/16 Status: DiscontinuedSodium Chloride 3% inhalation solution 3 mL, Route: NEB, Drug Form: SOLN, Dosing Weight 60.864, kg, RQ4H, Start date: 04/18/16 16:00:00 CDT, Duration: 60 day, Stop date: 06/17/16 15:00:00 CDT Notes: SEE RT DOCUMENTATION (Same as: Hypertonic Saline 3%, Inhalation) Start Date: 04/18/16 Stop Date: 04/20/16 Status: DiscontinuedSynthroid 75 microgram, 1 tab, Route: PO, Drug form: TAB, Q630AM, Dosing Weight 60.864, kg , Start date: 04/27/16 6:30:00 CDT, Duration: 60 day, Stop date: 06/25/16 6:30: 00 CDT Notes: Take 1 hour before or 2 hours after meal; Enteral feeds may interefere with the absorption ofthis medication. (Same as:Synthroid, Levothroid) Start Date: 04/27/16 Stop Date: 05/20/16 Status: DiscontinuedSynthroid 75 microgram, 1 tab, Route: PO, Drug form: TAB, Q630AM, Dosing Weight 60.864, kg , Start date: 04/18/16 6:30:00 CDT, Duration: 60 day, Stop date: 06/16/16 6:30: 00 CDT Notes: Take 1 hour before or 2 hours after meal; Enteral feeds may interefere with the absorption ofthis medication. (Same as:Synthroid, Levothroid) Start Date: 04/18/16 Stop Date: 04/17/16 Status: CanceledSynthroid 50 microgram, 1 tab, Route: PO, Drug form: TAB, Q630AM, Dosing Weight 60.864, kg , Start date: 04/18/16 6:30:00 CDT, Duration: 60 day, Stop date: 06/16/16 6:30: 00 CDT Start Date: 04/18/16 Stop Date: 04/26/16 Status: DiscontinuedSynthroid 50 microgram, 1 tab, Route: PO, Drug form: TAB, Q630AM, Dosing Weight 60.864, kg , Start date: 04/17/16 6:30:00 CDT, Duration: 60 day, Stop date: 06/15/16 6:30: 00 CDT Notes: Take 1 hour before or 2 hours after meal; Enteral feeds may interefere with the absorption ofthis medication.(Same as:Levothroid, Synthroid) Start Date: 04/17/16 Stop Date: 04/17/16 Status: Discontinuedtramadol 50 mg oral tablet 50 mg=1 tab, PO, Q4H, prn, 0 Refill(s) Start Date: 04/15/16 Stop Date: 05/19/16 Status: Discontinuedtrazodone 25 mg, 0.5 tab, Route: PO, Drug form: TAB, ONCE, Dosing Weight 60.864, kg, Start date: 04/26/16 21:32:00 CDT, Stop date: 04/26/16 21:32:00 CDT Notes: (Same As: Desyrel) Start Date: 04/26/16 Stop Date: 04/26/16 Status: CompletedXopenex 0.63 mg, 3 mL, Route: NEB, Drug form: SOLN, TRTID, Dosing Weight 60.864, kg, Start date: 04/19/16 13:30:00 CDT, Duration: 30 day, Stop date: 05/19/16 7:30: 00 CDT Notes: SEE RT DOCUMENTATION (Same as:Xopenex)Non-Formulary Start Date: 04/19/16 Stop Date: 05/06/16 Status: DiscontinuedXopenex 0.63 mg, 3 mL, Route: NEB, Drug form: SOLN, TRBID, Dosing Weight 60.864, kg, Start date: 05/06/16 19:30:00 CDT, Duration: 30 day, Stop date: 06/05/16 7:30: 00 CDT Notes: SEE RT DOCUMENTATION (Same as:Xopenex)Non-Formulary Start Date: 05/06/16 Stop Date: 05/20/16 Status: DiscontinuedZofran 4 mg, 1 tab, Route: PO, Drug form: TAB, Q8H, Dosing Weight 60.71, kg, PRN as needed for nausea/vomiting, Start date: 04/15/16 21:45:00 CDT, Stop date: 21:44:00 CDT Notes: (Same as: Zofran) Start Date: 04/15/16 Stop Date: 05/20/16 Status: DiscontinuedZofran 4 mg oral tablet 4 mg=1 tab, PO, Q8H, PRN Nausea/vomiting, # 30 tab, 0 Refill(s) Start Date: 04/15/16 Stop Date: 05/19/16 Status: Discontinued Results ELECTROLYTES Most recent to oldest 1 2 3 [Reference Range]: Sodium Lvl [135-145 mEq/L] 135 mEq/L 139 mEq/L 136 mEq/L (05/17/16 5:19 AM) (05/12/16 6:00 AM) (05/10/16:31 AM) Potassium Lvl [3.5-5.1 mEq/L] 5.4 mEq/L 1 4.4 mEq/L 4.5 mEq/L *HI* (05/12/16 6:00 AM) (05/11/16 5:17 AM) (05/17/16 5:19 AM) Chloride Lvl [95-109 mEq/L] 100 mEq/L 103 mEq/L 104 mEq/L (05/17/16 5:19 AM) (05/12/16 6:00 AM) (05/10/16 5:31 AM) CO2 [24-32 mEq/L] 24 mEq/L 27 mEq/L 24 mEq/L (05/17/16:19 AM) (05/12/16 6:00 AM) (05/10/16 5:31 AM) AGAP [10.0-20.0 mEq/L] 16.4 mEq/L 13.4 mEq/L 13.3 mEq/L (05/17/16 5:19 AM) (05/12/16 6:00 AM) (05/10/16:31 AM) 1Result Comment: Specimen Slightly Hemolyzed.CHEM PANEL Most recent to oldest 1 2 3 [Reference Range]: Creatinine Lvl [0.50-1.40 0.40 mg/dL 0.34 mg/dL 0.49 mg/dL mg/dL] *LOW* *LOW* *LOW* (05/17/16 5:19 AM) (05/12/16 6:00 AM) (05/10/16 5:31 AM) eGFR 120 mL/min/1.73m2 1 127 mL/min/1.73m2 2 112 mL/min/1.73m2 3 *NA* *NA* *NA* (05/17/16 5:19 AM) (05/12/16 6:00 AM) (05/10/16 5:31 AM) BUN [7-22 mg/dL] 20 mg/dL 19 mg/dL 18 mg/dL (05/17/16 5:19 AM) (05/12/16 6:00 AM) (05/10/16 5:31 AM) B/C Ratio [6-25] 31 57 36 *HI* *HI* *HI* (05/08/16 6:05 AM) (05/06/16 5:22 AM) (04/22/16 4:14 AM) Glucose Lvl [70-99 mg/dL] 92 mg/dL 95 mg/dL 82 mg/dL (05/17/16 5:19 AM) (05/12/16 6:00 AM) (05/10/16 5:31 AM) Total Protein [6.4-8.4 g/dL] 7.4 g/dL 7.3 g/dL 6.7 g/dL (05/08/16 6:05 AM) (05/06/16 5:22 AM) (04/22/16 4:14 AM) Albumin Lvl [3.5-5.0 g/dL] 2.7 g/dL 2.9 g/dL 2.6 g/dL *LOW* *LOW* *LOW* (05/08/16 6:05 AM) (05/06/16 5:22 AM) (04/22/16 4:14 AM) Globulin [2.7-4.2 g/dL] 4.7 g/dL 4.4 g/dL 4.1 g/dL *HI* *HI* (04/22/16 4:14 AM) (05/08/16 6:05 AM) (05/06/16 5:22 AM) A/G Ratio [0.7-1.6] 0.6 0.7 0.6 *LOW* (05/06/16 5:22 AM) *LOW* (05/08/16 6:05 AM) (04/22/16 4:14 AM) Calcium Lvl [8.5-10.5 mg/dL] 8.9 mg/dL 9.7 mg/dL 9.5 mg/dL (05/17/16 5:19 AM) (05/12/16 6:00 AM) (05/10/16 5:31 AM) Phosphorus [2.5-4.5 mg/dL] 4.3 mg/dL 4.0 mg/dL 3.7 mg/dL (05/17/16 5:19 AM) (05/10/16 5:31 AM) (05/03/16 5:46 AM) Magnesium Lvl [1.8-2.4 mg/dL] 2.1 mg/dL 2.0 mg/dL 2.2 mg/dL (05/17/16 5:19 AM) (05/12/16 6:00 AM) (05/10/16 5:31 AM) ALT [0-65 unit/L] 29 unit/L 23 unit/L 22 unit/L (05/08/16 6:05 AM) (05/06/16 5:22 AM) (04/22/16 4:14 AM) AST [0-37 unit/L] 25 unit/L 9 unit/L 9 unit/L (05/08/16 6:05 AM) (05/06/16 5:22 AM) (04/22/16 4:14 AM) Alk Phos [39-136 unit/L] 144 unit/L 147 unit/L 165 unit/L *HI* *HI* *HI* (05/08/16 6:05 AM) (05/06/16 5:22 AM) (04/22/16 4:14 AM) Bili Total [0.2-1.3 mg/dL] 0.3 mg/dL 0.2 mg/dL 0.2 mg/dL (05/08/16 6:05 AM) (05/06/16 5:22 AM) (04/22/16 4:14 AM) Ammonia [<=45.0 uMol/L] 21.0 uMol/L (04/21/16 6:27 AM) Procalcitonin Lvl [0.00-0.10 <0.05 ng/mL ng/mL] (04/20/16 11:09 AM) Vitamin B1 [78-185 nMol/L] 143 nMol/L 4 *NA* (04/21/16 6:27 AM) Vitamin B6 [2.1-21.7 ng/mL] 5.3 ng/mL 5 *NA* (04/21/16 6:27 AM) Vitamin D, 25-OH, Total 34 ng/mL [30-100 ng/mL] (04/20/16 11:09 AM) 1Result Comment: The eGFR is calculated [...] eGFR should be multiplied by the estimated BMI.4Result Comment: Test Performed at: [facility] [address] [place] [address] Kadie Reyes MD, [id number] Comment: Test Performed at: [facility] [address] [place] [address] Kadie Reyes MD, PhDCARDIAC ENZYMES Most recent to oldest [Reference Range]: 1 2 3 Troponin-I [0.00-0.40 ng/mL] <0.02 ng/mL <0.02 ng/mL (04/27/16 6:19 AM) (04/26/16 5:17 PM) LIPIDS Most recent to oldest 1 2 3 [Reference Range]: CHD Risk [3.90-5.80] 2.88 3.42 3.96 *LOW* *LOW* (04/16/16 4:05 PM) (05/11/16 5:17 AM) (04/26/16 6:23 AM) Chol [<=199 mg/dL] 184 mg/dL 226 mg/dL 285 mg/dL (05/11/16 5:17 AM) *HI* *HI* (04/26/16 6:23 AM) (04/16/16 4:05 PM) Trig [<=149 mg/dL] 151 mg/dL 247 mg/dL 203 mg/dL *HI* *HI* *HI* (05/11/16 5:17 AM) (04/26/16 6:23 AM) (04/16/16 4:05 PM) HDL [>=61 mg/dL] 64 mg/dL 66 mg/dL 72 mg/dL (05/11/16 5:17 AM) (04/26/16 6:23 AM) (04/16/16 4:05 PM) LDL (Calculated) [<=99 mg/dL] 90 mg/dL 111 mg/dL 172 mg/dL (05/11/16 5:17 AM) *HI* *HI* (04/26/16 6:23 AM) (04/16/16 4:05 PM) VLDL 30 49 41 *NA* *NA* *NA* (05/11/16 5:17 AM) (04/26/16 6:23 AM) (04/16/16 4:05 PM) SPECIAL CHEMISTRY Most recent to oldest [Reference Range]: 1 2 3 Hgb A1C [<=5.6 %] 5.3 % (04/16/16 4:05 PM) ANEMIA STUDY Most recent to oldest [Reference Range]: 1 2 3 Iron [30-160 ug/dl] 49 ug/dl (04/16/16 4:05 PM) Ferritin Lvl [5-204 ng/mL] 48 ng/mL (04/16/16 4:05 PM) % Satur Fe [12-57 %] 14 % (04/16/16 4:05 PM) UIBC [110-370 ug/dl] 295 ug/dl (04/16/16 4:05 PM) Vitamin B12 Lvl [254-1320 pg/mL] 1082 pg/mL (04/21/16 6:27 AM) Folate Lvl [>=3.0 ng/mL] 19.6 ng/mL (04/21/16 6:27 AM) TIBC [228-428 ug/dl] 344 ug/dl (04/16/16 4:05 PM) URINE AND STOOL Most recent to oldest 1 2 3 [Reference Range]: UA Turbidity [Clear] Clear Slight Cloudy Slight Cloudy (05/12/16 6:29 AM) (05/06/16 5:22 AM) (04/20/16 12:48 PM) UA Color [Yellow] Yellow Yellow Yellow *NA* *NA* *NA* (05/12/16 6:29 AM) (05/06/16 5:22 AM) (04/20/16 12:48 PM) UA pH [5.0-8.0] 7.0 7.0 7.0 (05/12/16 6:29 AM) (05/06/16 5:22 AM) (04/20/16 12:48 PM) UA Spec Grav [<=1.030] 1.010 1.015 1.020 (05/12/16 6:29 AM) (05/06/16 5:22 AM) (04/20/16 12:48 PM) UA Glucose [Negative] Negative Negative (05/12/16 6:29 AM) (05/06/16 5:22 AM) UA Glucose [Negative Negative mg/dL mg/dL] (04/20/16 12:48 PM) UA Blood [Negative] Negative Moderate Negative (05/12/16 6:29 AM) *ABN* (04/20/16 12:48 PM) (05/06/16 5:22 AM) UA Ketones [Negative] Negative Negative *NA* *NA* (05/12/16 6:29 AM) (05/06/16 5:22 AM) UA Ketones [Negative Negative mg/dL mg/dL] *NA* (04/20/16 12:48 PM) UA Protein [Negative] Negative Trace (05/12/16 6:29 AM) *ABN* (05/06/16 5:22 AM) UA Protein [Negative Negative mg/dL mg/dL] (04/20/16 12:48 PM) UA Urobilinogen [0.1-1.0 0.2 EU/dL 1.0 EU/dL 1.0 EU/dL EU/dL] (05/12/16 6:29 AM) (05/06/16 5:22 AM) (04/20/16 12:48 PM) UA Bili [Negative] Negative Negative Negative *NA* *NA* *NA* (05/12/16 6:29 AM) (05/06/16 5:22 AM) (04/20/16 12:48 PM) UA Leuk Est [Negative] Trace Large Negative *ABN* *ABN* (04/20/16 12:48 PM) (05/12/16 6:29 AM) (05/06/16 5:22 AM) UA Nitrite [Negative] Negative Negative Negative (05/12/16 6:29 AM) (05/06/16 5:22 AM) (04/20/16 12:48 PM) UA WBC [None Seen /HPF] 3-5 /HPF 51-100 /HPF 3-5 /HPF (05/12/16 6:29 AM) *ABN* (04/20/16 12:48 PM) (05/06/16 5:22 AM) UA RBC [0-2 /HPF] 0-2 /HPF 6-10 /HPF 0-2 /HPF (05/12/16 6:29 AM) *ABN* (04/20/16 12:48 PM) (05/06/16 5:22 AM) UA Bacteria Rare *NA* (05/12/16 6:29 AM) UA Bacteria [None Seen Few /HPF Few /HPF /HPF] (05/06/16 5:22 AM) (04/20/16 12:48 PM) UA Sq Epi [Few] None Seen (05/12/16 6:29 AM) UA Sq Epi [Few /LPF] Occasional /LPF Rare /LPF (05/06/16 5:22 AM) (04/20/16 12:48 PM) UA CaOx Kaylynn [None Seen Occasional /HPF /HPF] (05/06/16 5:22 AM) UA Amorph Kaylynn [None Seen Few /HPF Moderate /HPF /HPF] *ABN* *ABN* (04/20/16 12:48 PM) (04/16/16 6:27 AM) IMMUNOLOGY Most recent to oldest 1 2 3 [Reference Range]: Treponemal Scr [Non Reactive] Non Reactive *NA* (04/21/16 6:27 AM) NAMRATA [Negative] Negative (04/21/16 6:27 AM) Prealbumin [18.0-45.0 mg/dL] 29.0 mg/dL 30.4 mg/dL 38.4 mg/dL (05/17/16 5:19 AM) (05/10/16 5:31 AM) (05/03/16 5:46 AM) HIV 1/2 Ab [Negative] Negative *NA* (04/21/16 6:27 AM) HEMATOLOGY Most recent to oldest 1 2 3 [Reference Range]: WBC [3.7-10.4 K/CMM] 6.5 K/CMM 6.8 K/CMM 5.4 K/CMM (05/17/16 5:19 AM) (05/10/16 5:31 AM) (05/08/16 6:05 AM) RBC [4.20-5.40 M/CMM] 3.22 M/CMM 3.23 M/CMM 3.03 M/CMM *LOW* *LOW* *LOW* (05/17/16 5:19 AM) (05/10/16 5:31 AM) (05/08/16 6:05 AM) Hgb [12.0-16.0 g/dL] 10.3 g/dL 10.3 g/dL 9.6 g/dL *LOW* *LOW* *LOW* (05/17/16 5:19 AM) (05/10/16 5:31 AM) (05/08/16 6:05 AM) Hct [36.0-48.0 %] 31.3 % 31.3 % 29.8 % *LOW* *LOW* *LOW* (05/17/16:19 AM) (05/10/16:31 AM) (05/08/16 6:05 AM) MCV [80.0-98.0 fL] 97.2 fL 97.1 fL 98.1 fL (05/17/16:19 AM) (05/10/16 5:31 AM) *HI* (05/08/16:05 AM) MCH [27.0-31.0 pg] 32.1 pg 32.0 pg 31.7 pg *HI* *HI* *HI* (05/17/16:19 AM) (05/10/16:31 AM) (05/08/16 6:05 AM) MCHC [32.0-36.0 g/dL] 33.0 g/dL 33.0 g/dL 32.3 g/dL (05/17/16:19 AM) (05/10/16 5:31 AM) (05/08/16 6:05 AM) RDW [11.5-14.5 %] 18.1 % 18.9 % 19.0 % *HI* *HI* *HI* (05/17/16:19 AM) (05/10/16:31 AM) (05/08/16 6:05 AM) Platelet [133-450 K/CMM] 274 K/CMM 332 K/CMM 304 K/CMM (05/17/16:19 AM) (05/10/16 5:31 AM) (05/08/16 6:05 AM) MPV [7.4-10.4 fL] 9.3 fL 8.8 fL 8.9 fL (05/17/16:19 AM) (05/10/16 5:31 AM) (05/08/16 6:05 AM) Segs [45.0-75.0 %] 48.7 % 52.0 % 41.1 % (05/17/16 5:19 AM) (05/10/16 5:31 AM) *LOW* (05/08/16 6:05 AM) Lymphocytes [20.0-40.0 %] 39.0 % 34.6 % 44.0 % (05/17/16 5:19 AM) (05/10/16 5:31 AM) *HI* (05/08/16 6:05 AM) Monocytes [2.0-12.0 %] 9.1 % 9.5 % 11.0 % (05/17/16 5:19 AM) (05/10/16 5:31 AM) (05/08/16 6:05 AM) Eosinophils [0.0-4.0 %] 2.1 % 2.9 % 2.8 % (05/17/16 5:19 AM) (05/10/16 5:31 AM) (05/08/16 6:05 AM) Basophils [0.0-1.0 %] 1.1 % 1.0 % 1.1 % *HI* (05/10/16 5:31 AM) *HI* (05/17/16 5:19 AM) (05/08/16 6:05 AM) Segs-Bands # [1.5-8.1 K/CMM] 3.2 K/CMM 3.5 K/CMM 2.2 K/CMM (05/17/16 5:19 AM) (05/10/16 5:31 AM) (05/08/16 6:05 AM) Lymphocytes # [1.0-5.5 K/CMM] 2.5 K/CMM 2.3 K/CMM 2.4 K/CMM (05/17/16 5:19 AM) (05/10/16 5:31 AM) (05/08/16 6:05 AM) Monocytes # [0.0-0.8 K/CMM] 0.6 K/CMM 0.6 K/CMM 0.6 K/CMM (05/17/16 5:19 AM) (05/10/16 5:31 AM) (05/08/16 6:05 AM) Eosinophils # [0.0-0.5 K/CMM] 0.1 K/CMM 0.2 K/CMM 0.2 K/CMM (05/17/16 5:19 AM) (05/10/16 5:31 AM) (05/08/16 6:05 AM) Basophils # [0.0-0.2 K/CMM] 0.1 K/CMM 0.1 K/CMM 0.1 K/CMM (05/17/16 5:19 AM) (05/10/16 5:31 AM) (05/08/16 6:05 AM) Plt Morph Normal (04/21/16 6:27 AM) Sed Rate [0-20 mm/hr] 85 mm/hr *HI* (04/21/16 6:27 AM) PT [12.0-14.7 seconds] 14.8 seconds *HI* (04/16/16 4:05 PM) INR [0.85-1.17] 1.13 (04/16/16 4:05 PM) PTT [22.9-35.8 seconds] 32.2 seconds (04/16/16 4:05 PM) Immunizations Given and Recorded Vaccine Date [...] Exercise Assessment and Plan Extracted from: Title: SOAP Note: Rehab * [id number] Author: Molly Hawley NP Date: 05/20 Patient: JD COLE Age: 51 years Sex: Female : 1965 Associated Diagnoses: None Author: Molly Hawley NP Subjective Pt lying in bed, awake and alert, no new issues or complaints. Nursing reported emesis with 1600hr tube feeding yesterday. We had increased to 300mg from 250ml to reduce the number of feedings from 5 to 4 per day. Otherwise, no new issues reported by nursing. Health Status Allergies: Allergic Reactions (Selected) Severity Not Documented Phenergan- Phenergan. Medications Current medications: (Selected) Inpatient Medications Ordered Lipitor: 40 mg, 1 tab, PO, Bedtime Lovenox: 40 mg, 0.4 mL, SUB-Q, Daily [place] 5/325 oral tablet: 1 tab, PO, TID Pepcid 20 mg oral tablet: 20 mg, 1 tab, PO, Q12H Saline Flush 0.9%: 10 mL, IVP, PRN, PRN: Line Flush Synthroid: 75 microgram, 1 tab, PO, Q630AM Xopenex: 0.63 mg, 3 mL, NEB, TRBID Zofran: 4 mg, 1 tab, PO, Q8H, PRN: as needed for nausea/vomiting acetaminophen: 650 mg, 20.3 mL, PO, Q6H, PRN: Pain 1-3/Temp > 100.4 F bisacodyl: 10 mg, 1 supp, [place], Daily, PRN: Constipation budesonide 0.5 mg/2 mL inhalation suspension: 0.5 mg, 2 mL, NEB, BID docusate sodium 100 mg oral capsule: 100 mg, 1 cap, PO, Q12H guaiFENesin: 200 mg, 10 mL, PO, Q6H, PRN: Cough/Congestion hydrALAZINE: 25 mg, 1 tab, PO, Q6H, PRN: Elevated BP ipratropium 0.02% inhalation solution: 500 microgram, 2.5 mL, NEB, TRBID levETIRAcetam: 1,500 mg, IV, PRN, PRN: Seizure lidocaine 1%: 5 mL, INTRADERM, ONCALL metoprolol tartrate: 50 mg, 1 tab, PO, Q12H midazolam: 5 mg, 1 mL, IM, PRN, PRN: Seizure mirtazapine: 15 mg, 1 tab, PO, Bedtime polyethylene glycol 3350: 17 gm, 1 pkt, PO, Daily senna 8.6 mg oral tablet: 17.2 mg, 2 tab, PO, QNoon sertraline: 50 mg, 1 tab, PO, Daily Prescriptions Prescribed [place] 5/325 oral tablet: 1 tab, PO, TID, PRN: Pain Score 7-10, 90 tab, 0 Refill (s) Pepcid 20 mg oral tablet: 20 mg, 1 tab, PO, Q12H, for 30 day, 60 tab, 0 Refill( s) Robitussin 100 mg/5 mL oral liquid: 200 mg, 10 mL, PO, Q6H, for 30 day, PRN: Cough/Congestion, 240 mL, 0 Refill(s) acetaminophen 325 mg oral tablet: 650 mg, 2 tab, PO, Q6H, PRN: for fever, 120 tab, 0 Refill(s) atorvastatin 40 mg oral tablet: 40 mg, 1 tab, PO, Bedtime, 30 tab, 0 Refill(s) budesonide 0.5 mg/2 mL inhalation suspension: 0.5 mg, 2 mL, NEB, BID, 120 mL, 0 Refill(s) docusate sodium 100 mg oral capsule: 100 mg, 1 cap, PO, Q12H, 60 cap, 2 Refill( s) ipratropium 0.02% inhalation solution: 500 microgram, 2.5 mL, NEB, TRBID, 150 mL, 0 Refill(s) levalbuterol 0.63 mg/3 mL inhalation solution: 0.63 mg, 3 mL, NEB, TRBID, 180 mL, 0 Refill(s) levothyroxine 75 mcg (0.075 mg) oral tablet: 75 microgram, 1 tab, PO, Q630AM, 30 tab, 0 Refill(s) metoprolol tartrate 50 mg oral tablet: 50 mg, 1 tab, PO, Q12H, 60 tab, 0 Refill (s) mirtazapine 15 mg oral tablet: 15 mg, 1 tab, PO, Bedtime, 30 tab, 0 Refill(s) polyethylene glycol 3350 oral powder for reconstitution: 17 gm, PO, Daily, 527 gm, 0 Refill(s) senna 8.6 mg oral tablet: 17.2 mg, 2 tab, PO, QNoon, 60 tab, 0 Refill(s) sertraline 50 mg oral tablet: 50 mg, 1 tab, PO, Daily, 30 tab, 0 Refill(s), Medications (23) Active Scheduled: (15) acetaminophen-hydrocodone 325mg-5mg tab 1 tab, PO, TID atorvastatin 40mg tab 40 mg 1 tab, PO, Bedtime budesonide 0.5 mg/2ml neb SUSP 0.5 mg 2 mL, NEB, BID docusate sodium 100 mg CAP 100 mg 1 cap, PO, Q12H enoxaparin 40 mg/0.4 ml INJ 40 mg 0.4 mL, SUB-Q, Daily famotidine 20 mg tab 20 mg 1 tab, PO, Q12H ipratropium 0.2mg/ml 2.5ml INH SOLN Unit Dose 500 microgram 2.5 mL, NEB, TRBID levalbuterol 0.63 mg/3 ml neb SOLN 0.63 mg 3 mL, NEB, TRBID levothyroxine 75 microgram TAB 75 microgram 1 tab, PO, Q630AM lidocaine 1% 30 ml INJ VL 5 mL, INTRADERM, ONCALL metoprolol tartrate 50 mg TAB 50 mg 1 tab, PO, Q12H mirtazapine 15 mg TAB 15 mg 1 tab, PO, Bedtime polyethylene glycol 17 gm packet 17 gm 1 pkt, PO, Daily senna 8.6 mg TAB 17.2 mg 2 tab, PO, QNoon sertraline 50 mg TAB 50 mg 1 tab, PO, Daily Continuous: (0) PRN: (8) acetaminophen 650 mg/20.3ml oral LIQ 650 mg 20.3 mL, PO, Q6H bisacodyl 10 mg rect SUPP 10 mg 1 supp, [place], Daily guaiFENesin 200 mg/10 ml ud LIQ 200 mg 10 mL, PO, Q6H hydrALAZINE 25 mg TAB 25 mg 1 tab, PO, Q6H levETIRAcetam 500mg/ 5ml Vial 1,500 mg, IV, PRN midazolam 5 mg/mL PF 1 mL SYR 5 mg 1 mL, IM, PRN ondansetron 4 mg TAB 4 mg 1 tab, PO, Q8H sodium chloride 0.9% 10 ml flush syr BD 10 mL, IVP, PRN . Problem list: All Problems Acute respiratory failure / SNOMED CT 610151677 / Confirmed Anemia / SNOMED CT 461608041 / Confirmed Dysphagia / SNOMED CT 97060212 / Confirmed H/O tracheostomy / SNOMED CT [id number] / Confirmed Hypercapnia / SNOMED CT 42243940 / Confirmed Hypoxia / SNOMED CT 6912011381 / Confirmed Metabolic encephalopathy / SNOMED CT 56628599 / Confirmed PEG - Percutaneous endoscopic gastrostomy catheter / SNOMED CT 976396075 / Confirmed SAH - Subarachnoid hemorrhage / SNOMED CT 4683310739 / Confirmed Stroke / SNOMED CT 135992364 / Confirmed Objective VS/Measurements Vital Signs (last 24 hrs) Last Charted Heart Rate Peripheral H 108bpm (MAY 20 08:) Resp Rate 18 BRMIN (MAY 20:) SBP 118 mmHg (MAY 20:) DBP 79 mmHg (MAY 20:) SpO2 94 % (MAY 19 19:40) General: No acute distress, Well developed. Eye: Normal conjunctiva. HENT: Normocephalic, Oral mucosa is moist. Neck: Supple. Respiratory: Lungs are clear to auscultation, Respirations are non-labored, Breath sounds are equal, Symmetrical chest wall expansion. Cardiovascular: Normal rate, Regular rhythm, No edema. Gastrointestinal: Soft, Non-tender, Non-distended, Normal bowel sounds. Mental status/ Cognition Alert. Psychiatric: Cooperative. Results Review Results review Labs (Last four charted values) WBC 6.5 (MAY 17) 6.8 (MAY 10) 5.4 (MAY 08) 6.0 (MAY 06) Hgb L 10.3 (MAY 17) L 10.3 (MAY 10) L 9.6 (MAY 08) L 9.5 (MAY 06) Hct L 31.3 (MAY 17) L 31.3 (MAY 10) L 29.8 (MAY 08) L 29.9 ( MAY 06) Plt 274 (MAY 17) 332 (MAY 10) 304 (MAY 08) 327 (MAY 06) Na 135 (MAY 17) 139 (MAY 12) 136 (MAY 10) 138 (MAY 08) K H 5.4 (MAY 17) 4.4 (MAY 12) 4.5 (MAY 11) H 5.3 (MAY 10) CO2 24 (MAY 17) 27 (MAY 12) 24 (MAY 10) 25 (MAY 08) Cl 100 (MAY 17) 103 (MAY 12) 104 (MAY 10) 102 (MAY 08) Cr L 0.40 (MAY 17) L 0.34 (MAY 12) L 0.49 (MAY 10) 0.55 (MAY 08) BUN 20 (MAY 17) 19 (MAY 12) 18 (MAY 10) 17 (MAY 08) Glucose Random 92 (MAY 17) 95 (MAY 12) 82 (MAY 10) 84 (MAY 08) Mg 2.1 (MAY 17) 2.0 (MAY 12) 2.2 (MAY 10) 2.0 (MAY 06) Phos 4.3 (MAY 17) 4.0 (MAY 10) 3.7 (MAY 03) 4.4 (APR 26) Ca 8.9 (MAY 17) 9.7 (MAY 12) 9.5 (MAY 10) 9.3 (MAY 08) PT H 14.8 (APR 16) INR 1.13 (APR 16) PTT 32.2 (APR 16) Troponin <0.02 (APR 27) <0.02 (APR 26) Impression and Plan Hypothyroidism- TSH 69.3 and FT4 0.45- increase Levothyroxine to 75 mcg daily. - D/W Dr Lewis- Levothyroxine started 04-16- decrease to 50 mcg ( done 04-17) and recheck FT4 in 1 week. - Increase Levothyroxine to 75 mcg and recheck labs in 2 weeks (04-26) - Labs noted- TSH decreasing, FT4 is WNL.(05-10) - TSH continues to trend down (15.8), cont to monitor and adjust supplement as needed. (05/17) Resp Failure- decannulated- cont Duonebs, Mucomyst, and Doxycycline as ordered. - another episode of hemoptysis, consider another CT chest . (04/23) - CT neg for PE (04-26) - cont all nebs as ordered, add guaifenesin 600 mg q 12 x 1 week. (04-28) - compensating clinically (05/17) Hypercholesterolemia- begin simvastatin 40 mg HS. recheck FLP and LFTs in 5 days (04-17) - simvastatin DC'd and atorvastatin started 2/2 blood-brain barrier issues with simva. on 04/19 - increase Atorvastatin to 40 mg and recheck labs 05-11 - Labs noted- good response to increase in atorvastatin (05-11) HTN- cont to monitor closely. No meds at transfer. Pulse 88-103- may need low dose Metoprolol. - BP elevated at times. Pulse 80s-90s. Start Metoprolol 25 mg q 12 with parameters(04-17) - Tachy in the 130's this am. PMR has already ordered EKG to f/u on QT () - BP elevated at times- add prn hydralazine (04-29) - BP and P noted- cont current Metoprolol (05-11) Tachycardia - change Albuterol to Xopenex and monitor closely, EKG ordered this am - pulse increased, increase Metoprolol to 50 mg q 12 with parameters (04-28 ) Hypokalemia- K repleted and now WNL. Monitor weekly and prn. Mag normal (04-17) - elevated yesterday, now WNLs (04/25) - elevated today- recheck in AM (05-10) - repeat K 4.5 - elevated K / specimen being slightly hemolyzed today (05/17) UTI - >100,000 CFU/mL Pseudomonas aeruginosa grown, change abx to cefepime 1 g q 8 hr x 10 days, DC Bactrim (05/09) - ABX changed to Ceftazidime (05-10) - 05-11 urine cx neg, abx dc'd (05-14) Anorexia- cont Remeron, Appreciate RD note. Recheck prealbumin soon (Albumin decreased. Last prealb was on 04-16). Modafinil decreased. - Prealbumin 38.4 on 05-03. (Levothyroxine being adjusted) - change TF from 250ml q 4 hr x 5/day to 300ml QID (05/19) - TF later changed back to 250 ml qid 2/2 emesis(05/20) Anemia- Monitor weekly and prn. Fe studies noted. - slight drop in Hgb, cont to monitor weekly and prn. Hemodynamically stable (8-22) Elevated Alk Phos -slightly elevated. monitor. 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 PT/OT/SAIL MAKER Neurogenic Bowel- Senna and Miralax Neurogenic Bladder- per PMR Pain- multiple back surgeries s/p resections of giant cell tumors- Per PMR Back XR noted- lucency around periscrew at T 7- possible loosening. PMR aware DVT Prophylaxis- Lovenox Pt's medications and POC discussed in pharmacy rounds with PMR and RPH 05/20/16 Discharging to [facility] today. Anticpated Disch: 05/20/2016 (charted: 05/11/16) Disch Confirmed: No (charted: 05/11/16) Addendum by Harry Lewis MD on Pt seen and examined. Agree with the exam 05/20/2016 20:18 and physical exam documented by the RN INTERVENTIONAL. Extracted from: Title: Functional Vision Assessment Author: Vanessa Penny OD Date : 05/18/16 FUNCTIONAL VISION ASSESSMENT CONSULT REPORT OF FINDINGS: [Please see handwritten note in chart for ocular history and clinical exam data.] ASSESSMENT: 1. Distance unaided visual acuity is 20/16 in the right eye and 20/16 in the left eye. 2. Near unaided visual acuity is 20/32 (5pt font) in the right eye and 20/63 (10pt font) in the left eye. 3. Confrontation visual field testing revealed: full confrontation visual bello in each eye. 4. Binocular vision testing revealed: no strabismus with good convergence and intact stereopsis (depth perception). 5. EOM demonstrate full range of motion bilaterally. 6. Pupil evaluation revealed: equal, round and reactive pupils with no afferent pupillary defect. 7. The refractive error is minimal astigmatism in the right eye and minimal hyperopia in the left eye with presbyopia. 8. External ocular health revealed: normal anterior segment structures bilaterally. 9. Internal ocular health revealed: normal optic nerve, macula, retina, and retinal vasculature bilaterally. PLAN: 1. No glasses are recommended for distance at this time. 2. Normal sized font is recommend at near. We recommended +2.00 OTC reading glasses for near when necessary. 3. Monitor visual field status yearly or PRN. 4. Monitor binocular vision in one year or PRN. 5. Monitor EOMs yearly or PRN. 6. Monitor pupil function yearly or PRN. 7. Monitor refractive error yearly or PRN. 8. Monitor external ocular health yearly or PRN. 9. Complete eye exam with dilation in 1 year or PRN. 10. We explained the A&P to the patient and gave them our contact information. Extracted from: Title: PM&R Author: Cresencio Jo MD Date: 04/15/16 PM&R History and Physical DATE OF ADMISSION: 03/18/2016 ADMITTING PHYSICIAN: Dr. Juan galeano Service REASON FOR ADMISSION: Functional impairments due to ICH. 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 The patient states she does not quite remem alta the exact circumstances surrounding the date of injury, but on 01/20/2016 she reportedly developed a sudden severe headache, nausea and emesis. EMS was callled and when they arrived; she was foun d to have malignant hypertension. She was taken to [facility]. However, she deteriorated neurologically. A CT scan revealed a right frontal ICH along with SAH. She was therefore intubated to protect her airway and transferred to [facility] ED for a higher level of . Further investigation with CT angio demonstrated a left EDEN aneurysm. On 01/20 she subsequently underwent clipping of the left MCA and left EDEN aneurysm . Follow-up CT angiogram on 01/22 showed moderate basal spasms and CT scan on 01/22 showed possible areas of Left EDEN and [employer] strokes. EEG on 01/23 suggested moderate t o severe encephalopathy. MRI subsequently showed a left EDEN stroke. She underwent a trach and PEG placement on 02/04. The patient was then transferred to [facility] on 02/18 for continued care on a mechan ical vent. She was eventually decannulated on 03/15. Once medically stable she was deemed a good candidate for inpatient comprehensive rehabilitation. Today the patient reports she just does not feel well, she is unable to localize her symptoms to any particular source, but just had a feeling of general malaise. She reports she has had a wet cough for about a week which does not appear to be improving. Currently she denies headache, visual changes, and she reports motivation to begin therapies with goal to get stronger and start walking. She states she has been tolerating a regular consistancy diet without nausea/vomiting or pain. She also denies any new isues with bowrl and bladder. Past Medical History: - HTN - Headaches Past Surgical HISTORY: - Mutiple surgical resection of back/spine tumors - Spinal instrumentation and fusion Procedures performed at OSH: -01/21/2016: Clipping of the left MCA and left EDEN aneurysm on 01/20 -02/04/2016: Trach and PEG placement FAMILY HISTORY: Father: HTN. Otherwise denies family history of DM, seizures, cancer. 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 Prior history of tobacco: She has been smoking on and off since she was 17. Occasional alcohol use. She denies illicit substance use. FUNCTIONAL HISTORY: Patient was completely independent with all mobility and ADLs without the use of an assistive device prior to injury. CURRENT FUNCTION: Preadm Current Functional Status Bathing : Total A Bed Mobility : CGA, MIN A Bed Wheelchair Transfer : MOD A, MAX A Bladder : MAX A Bowel : MAX A Eating : Total A Grooming : Close S Locomotion Walk : MAX A Locomotion Wheelchair : CGA Lower Body Bathing : Total A Lower Extremity Dressing : Total A Rolling-Left to Right : MIN A, MOD A Rolling-Right to Left : MIN A, MOD A Toilet Transfer : Does not occur Sit to Stand : MOD A, MAX A Supine to Sit : MOD A Tub, Shower Transfer : Does not occur Upper Body Bathing : MAX A Upper Extremity Dressing : MAX A ALLERGIES: Phenergan MEDICATIONS: MAR reviewed Medications (21) Active Scheduled Meds (13): 04/15/16 acetylcysteine (acetylcysteine 20% inhalation solution) 400 mg NEB TRQ12H 04/15/16 albuterol-ipratropium (albuterol-ipratropium 2.5-0.5 mg inhalation solution) 3 mL NEB TRQ12H 04/16/16 amantadine 100 mg PO BID--04/16/16 docusate (docusate sodium 100 mg oral capsule) 100 mg PO Q12H 04/16/16 doxycycline 100 mg PO BID 04/16/16 heparin 5,000 unit SUB-Q Q8H 04/16/16 levETIRAcetam (levETIRAcetam 500 mg oral tablet) 500 mg PO Q12H 04/16/16 loratadine 10 mg PO Before Breakfast 04/16/16 modafinil 100 mg PO BID--04/16/16 ocular lubricant (Artificial Tears) BOTH EYES Q6H 04/16/16 pantoprazole 40 mg PO Before Dinner 04/16/16 polyethylene glycol 3350 17 gm PO Daily 04/16/16 senna (senna 8.6 mg oral tablet) 8.6 mg PO QNoon Unscheduled Meds: None PRN Meds (8): 04/15/16 LORazepam 2 mg IVP PRN 04/15/16 acetaminophen 650 mg PO Q6H 04/15/16 bisacodyl 10 mg [place] Daily 04/15/16 guaiFENesin 200 mg PO Q6H 04/15/16 levETIRAcetam 1,500 mg IV PRN 04/15/16 ondansetron (Zofran) 4 mg PO Q8H 04/15/16 simethicone 40 mg PO Q6H 04/15/16 sodium chloride (Saline Flush 0.9%) 10 mL IVP PRN One Time Meds: None Continuous Infusions: None REVIEW OF SYSTEMS: Constitutional: Negative fever, chills, malaise Eyes: No report or appearance vision changes HENT: +surgical incision to scalp. Negative sore throat, dysphagia, prior trach stoma site well healed. CV: Negative CP, palpitations Respiratory: +cough and wheezing. Negative SOB, GI: Negative constipation, bloating. +Incontinence : Negative hematuria or dysuria. +Incontinence Skin: Negative ulcers, wounds MSK: Negative numbness, tingling. Neurologic: Negative headache, dizziness. +hx of brain tumor Psychiatric: Negative history of anxiety and depression PHYSICAL EXAMINATION: Vitals: Vitals Tmp(F) Pulse BP RR SpO2 FIO2 04/15 23:45 ---- --- ----- -- 98 --- 04/15 18:28 97.6 103 125/74 18 100 3.0L/m 24 Hr Tmax: 97.6F (36.44c) at 04/15 18:28 Vital Signs are the last 5 in the past 48 hours. General: Lying in bed in no acute distress. Well-nourished. HEENT: NC/AT, MMM CV: RRR, Well-perfused Respiratory: Lungs CTAB, non-labored on RA, +cough GI: Abdomen soft, nondistended, nontender to palpation, +BS, +PEG in place, C/D /I Skin: Small opening wound inferior to left scapular, several other areas of healed scars and incisions likely prior prior procedures. MSK: No c/c/e. Full PROM throughout all 4 limbs. Neurologic: Mental status: Alert and oriented x 2 to person and time. Required cues for situation and location. Speech is fluent with intact repetition, naming, and comprehension. 0/3 word recall at 5 minutes. Unab le to performs serial 7s x 5. No impulsivity, however distractibility noted. CN 2-12 grossly intact. Reflexes hyperreflexive R > L Sensation intact bilaterally Manual muscle testin/5 in the RUE/RLE. 4/5 in LUE/LLE Tone: increased in elbow flexors and extensors on the RUE. No clonus noted. + Hernandez sign Psychiatric: Calm and cooperative. Affect flat. Assessment: The patient is a 51 year old female with a history of HTN who has functional deficits after suffering from a non-traumatic ICH. Impairments: ICH Cognitive deficits Neurogenic bladder Neurogenic bowel Hypertension Dysphagia Dysarthria Gait abnormality Pain Activity limitations: Decreased mobility Decreased transfers Decreased speech Decreased ADLs Participation restrictions: Driving Return to work Taking care of the home Recreation and leisure activities Taoist activities Community reintegration PLAN: Rehabilitation: - The [...] with discharge planning and family coping strategies. Non-traumatic ICH: - Bifrontal ICH, likely secondary to rupture of aneurysm, following by associated ischemia after clipping - She is s/p Bifrontal temporal craniotomy. Microsurgical dissection and clipping of left anterior cerebral artery A2 bifurcation complex multilobulated aneurysm.Clipping of left middle cerebral artery, anterior temporal artery aneurysm. on - No documented history of seizures. Continue Keppra; primary team to taper as indicated. - Documented HX from [facility] of symptomatic HCP s/p b/l EVD. - Repeat CTH on admission - Will monitor neurologic status closely. Cognitive deficits: - Patient with significant cognitive deficits and due to ICH/stroke. - SAIL MAKER consulted to evaluate and treat. Neuropsych will follow and test as appropriate. - Will monitor sleep/wake cycles closely to ensure optimal arousal and participation with therapies. Will add melatonin if needed. - Continue Amantadine 100mg BID Modafinil 100mg BID (started 02/08) Hemiparesis: - Patient with dominant right hemiparesis due to ICH and ischemic stroke. - This is a significant functional limitation. - Continue aggressive therapies with PT and OT to strengthen and optimize function. Spasticity: - Patient with increased tone in the RUE due to stroke. - PT and OT to initiate aggressive stretching, ROM exercises, bracing, splinting, casting and positioning as appropriate. - If the tone fails to improve with the above conservative measures, consider further intervention with botulinum toxin or phenol injections. Hypertension: - Documented history og HTN, but patient not currently on any BP meds. - Continue to monitor BP closely. - Medicine consulted for assistance with management Acute respiratory failure: - Trach placed 02/04. She is since decannulated - Patient continues to have cough/congestion. May be post-nasal drip - Followed by Pulm at OSH - CT Chest (04/05) performed for hemoptysis. Demonstrated right basilar atelectasis - Treated with Doxycycline (started 04/11) and oral steroid with documented: steam drier tender secretions - Continue duonebs and mucyomyst. Nutrition: - Patient currently on Regular consistancy diet with thin liquids - Per report, TF were stopped a few days prior to current admission. - SAIL MAKER to assess. - Steel Spar Operator consulted. Will check Prealbumin. Neurogenic bowel: - Stool softeners and stimulants to facilitate regular BM. - Continue PRN suppository. - Monitor BMs closely. Neurogenic bladder: - Patient with bladder dysfunction as a result of acquired brain injury. - Continue timed voids, monitor PVRs, and cath for PVR greater than 250 mL. - Continue terazosin Pain: - Patient currently does not complain of pain. - Continue Tylenol PRN - Continue to monitor pain closely. Skin: - Small open wound inferior to left scapula noted on admission. - Continue to monitor for signs of skin breakdown - Will consult wound care if needed Prophylaxis: - DVT: Continue SQH 5000 Units q8H - GI: Continue pantopraozole. (OSH GI Note from 04/15, documents diagnosis of GERD.) Access: - Patient arrived with a Left midline. Will like discontinue if no medical necessity. Dispo: - Discharge disposition to be determined. Will discuss at team rounds. - Prognosis is fair. - ELOS is 3 weeks. - Follow ups: 1. Primary care physician 2. Neurosurgery 3. Neurology 4. BI outpt clinic PMR ATTENDING/POST-ADMISSION PHYSICIAN EVALUATION I saw, examined and discussed the patient with the resident, Dr. Acevedo and agree with the documentation. There are no medical or functional changes since the preadmission assessment. The patient has o ngoing medical and functional impairments that can safely be met in the IRF setting, and these needs cannot be adequately addressed in a lower level of care , as the patient requires 24hr nursing and sathish ly medical management. The patient also has comorbidities which also necessitate close medical supervision, specialized rehabilitation nursing, and skilled therapy intervention. The patient is able to p articipate in and benefit from an acute inpatient rehabilitation program, with anticipated measurable gains as a result of this program. There are no obvious barriers to disposition to the community following the IRF admission. Date of service: 04/16/16 Juan Douglas MD [id number]
--- OUTSIDE RECORDS SUMMARY | 2019-01-05 19:47 | XMS REPORT | Summary of Care ---
:1965 Author Organization [facility] Address [address] [place] [phone] Encounter HQ Williams(WALLY) [id number] Date(s): 10/04/16 - 11/02/[address] Discharge Disposition: Home or Self Care [...]
--- OUTSIDE RECORDS SUMMARY | 2019-01-05 19:47 | XMS REPORT | Summary of Care ---
:[address] [facility] Address [address] [place] [phone] Encounter HQ Elijah_johanna(FIN) [id number] Date(s): 08/06/16 - 08/06/[address] Discharge Disposition: Home or Self Care Attending Physician: Tania Brandt MD Referring Physician: Tania Brandt MD Vital Signs Most recent to oldest [Reference Range]: 1 Height 157.48 cm (08/06/16 1:09 PM) Blood Pressure [90-140/60-90 mmHg] 109/68 mmHg (08/06/16 1:09 PM) Respiratory Rate [14-20 BRMIN] 20 BRMIN (08/06/16 1:09 PM) Peripheral Pulse Rate [60-100 bpm] 89 bpm (08/06/16 1:09 PM) Weight 59.091 kg (08/06/16 1:09 PM) Body Mass Index 23.83 m2 (08/06/16 1:09 PM) Problem List Condition Effective Dates Status [...] # 30 cap, 0 Refill(s) Start Date: 08/06/16 Status: Ordered Results No data available for [...]
--- OUTSIDE RECORDS SUMMARY | 2019-01-05 19:48 | XMS REPORT | Summary of Care ---
:1965 Author Organization [facility] Address [id number] [place] [phone] Encounter HQ Elijah_johanna(FIN) [id number] Date(s): 12/17/16 - 12/17/16 [facility] [id number] [place] [phone] Discharge Diagnosis: PEG (percutaneous endoscopic gastrostomy) adjustment/ replacement/removal Discharge Disposition: Home or Self Care Attending Physician: Srikanth Camacho MD Vital Signs Most recent to oldest [Reference Range]: 1 Height 157.48 cm (12/17/16 9:20 AM) Temperature Oral [96.4-99.1 DegF] 98.4 DegF (12/17/16 9:20 AM) Blood Pressure [90-140/60-90 mmHg] 108/48 mmHg (12/17/16 9:20 AM) Respiratory Rate [14-20 BRMIN] 17 BRMIN (12/17/16 9:20 AM) Peripheral Pulse Rate [60-100 bpm] 105 bpm *HI* (12/17/16 9:20 AM) Weight 54.545 kg (12/17/16 9:20 AM) Body Mass Index 21.99 m2 (12/17/16 9:20 AM) Problem List Condition Effective Dates [...] Reaction Severity Status Phenergan Phenergan Active Medications lidocaine 1 %, Route: SUB-Q, ONCE, Dosing Weight 54.545, kg, Start date: 12/17/16 9:32:00 CDT, Stop date: 12/17/16 9:32:00 CDT Start Date: 12/17/16 Stop Date: 12/17/16 Status: Completed Results No data available for [...]
--- OUTSIDE RECORDS SUMMARY | 2019-01-05 19:48 | XMS REPORT | Summary of Care ---
:1965 Author Organization [facility] Address [address] [place] [phone] Encounter HQ Elijah_johanna(FIN) [id number] Date(s): 12/10/16 - 12/10/[address] Discharge Disposition: Home or Self Care Attending Physician: Tania Brandt MD Referring Physician: Tania Brandt MD Vital Signs Most recent to oldest [Reference Range]: 1 Height 157.48 cm (12/10/16 1:10 PM) Blood Pressure [90-140/60-90 mmHg] 109/69 mmHg (12/10/16 1:10 PM) Respiratory Rate [14-20 BRMIN] 18 BRMIN (12/10/16 1:10 PM) Peripheral Pulse Rate [60-100 bpm] 88 bpm (12/10/16 1:10 PM) Weight 54.545 kg (12/10/16 1:10 PM) Body Mass Index 21.99 m2 (12/10/16 1:10 PM) Problem List Condition Effective Dates Status [...] Reaction Severity Status Phenergan Phenergan Active Medications amantadine 100 mg oral tablet 100 mg=1 tab, PEG, BID-04-17, X 30 day, # 60 tab, 4 Refill(s) Start Date: 12/10/16 Stop Date: 05/09/17 Status: Ordered Results No data available for [...]
--- OUTSIDE RECORDS SUMMARY | 2019-01-05 19:48 | XMS REPORT | Summary of Care ---
:1965 Author Organization [facility] Address [address] [place] [phone] Encounter HQ Elijah_johanna(FIN) [id number] Date(s): 11/05/16 - 11/05/[address] Discharge Disposition: Home or Self Care Attending Physician: Tania Brandt MD Referring Physician: Tania Brandt MD Vital Signs Most recent to oldest 1 2 3 [Reference Range]: Height 162.56 cm (11/05/16 1:26 PM) Blood Pressure [90-140/60-90 113/71 mmHg 112/72 mmHg 109/74 mmHg mmHg] (11/05/16 1:26 PM) (10/27/16 12:53 PM) (10/04/16 8:57 AM) Respiratory Rate [14-20 BRMIN] 18 BRMIN (11/05/16 1:26 PM) Peripheral Pulse Rate [60-100 100 bpm bpm] (11/05/16 1:26 PM) Weight 55.909 kg (11/05/16 1:26 PM) Body Mass Index 21.16 m2 (11/05/16 1:26 PM) Problem List Condition Effective Dates Status [...] Phenergan Active Medications amantadine 100 mg oral capsule 100 mg=1 cap, PO, BID-04-17, X 30 day, # 60 cap, 0 Refill(s) Start Date: 11/05/16 Stop Date: 12/05/16 Status: Orderedbenzonatate 100 mg oral capsule 100 mg=1 cap, PO, Q12H, 0 Refill(s) Start Date: 11/05/16 Status: Orderedlevothyroxine 125 mcg (0.125 mg) oral tablet 125 microgram=1 tab, PO, Daily, # 30 tab, 0 Refill(s) Start Date: 11/05/16 Status: OrderedMiraLax oral powder for reconstitution 17 gm, PO, Daily, # 255 gm, 0 Refill(s) Start Date: 11/05/16 Stop Date: 11/20/16 Status: Orderedomeprazole 40 mg oral delayed release capsule 40 mg=1 cap, PO, Daily, # 30 cap, 0 Refill(s) Start Date: 11/05/16 Status: OrderedRobitussin 100 mg=, PO, Q4H, 0 Refill(s) Start Date: 11/05/16 Stop Date: 11/05/16 Status: CompletedSymbicort 80/4.5 inhalation aerosol with adapter 2 puff, INHALATION, BID, 0 Refill(s) Start Date: 11/05/16 Status: Ordered Results No data available for [...]
--- OUTSIDE RECORDS SUMMARY | 2019-01-05 19:48 | XMS REPORT | Summary of Care ---
:1965 Author Organization [facility] Address [address] [place] [phone] Encounter HQ Williams(WALLY) [id number] Date(s): 11/03/16 - 12/02/[address] Discharge Disposition: Home or Self Care Attending Physician: Gris Rogers MD Vital Signs Most recent to oldest 1 2 3 [Reference Range]: Blood Pressure [90-140/60-90 110/63 mmHg 104/71 mmHg 109/74 mmHg mmHg] (11/15/16 12:32 PM) (11/08/16 11:11 AM) (11/03/16 1:29 PM) Problem List Condition Effective Dates Status [...]
--- OUTSIDE RECORDS SUMMARY | 2019-01-05 19:48 | XMS REPORT | Summary of Care ---
:1965 Author Organization [facility] Address [address] [place] [phone] Encounter HQ Elijah_johanna(FIN) [id number] Date(s): 12/06/16 - 01/04/[address] [phone] Discharge Disposition: Home or Self Care Attending Physician: Gris Rogers MD Admitting Physician: Gris Rogers MD Vital Signs No data available for [...]
[2019-01-06 01:10] VITALS: BP 123/70; TEMP 92.3; O2SAT 100
== END 2019-01-05 23:50 | disposition expired ==
LOC: ER 17:38
DX: I46.9 Cardiac arrest, cause unspecified (principal); K21.9 Gastro-esophageal reflux disease without esophagitis; E78.5 Hyperlipidemia, unspecified; I10 Essential (primary) hypertension; E03.9 Hypothyroidism, unspecified; Z86.73 Personal history of transient ischemic attack (TIA), and cerebral infarction without residual deficits
CPT/HCPCS: 36415; 51702; 71045; 80048; 82550; 83605; 84145; 84484; 85025; 85610; 85730; 87040; 92950; 94002; 99291; 99292